=== PATIENT | male | born 1945 | race Caucasian/White ===

== ENCOUNTER 2024-11-21 11:39 | Inpatient (IN) | payer MEDICARE, OTHER, SELFPAY ==
[2024-11-21] VITALS (7 sets, daily range): BP systolic 105–137; BP diastolic 64–81; PULSE 86–110; RESP 17–20; TEMP 36.4–38.2; O2SAT 95–99; BMI 21.9; BMI 20.6
--- NOTE | ~2024-11-21 | US_ITS ---
EXAMINATION: US KIDNEY RIGHT HISTORY: ZUNILDA TECHNIQUE: Real-time grayscale ultrasound imaging of the kidneys was performed and images were reviewed. COMPARISON: There are no prior studies available for comparison. FINDINGS: Right kidney: The right kidney measures 9.2 x 4.8 x 5.4 cm. The kidney is suboptimally visualized due to lack of patient cooperation. There are no definite masses. There is no hydronephrosis or renal calculi. Left Kidney: The left kidney could not be imaged due to lack of patient cooperation. US/US renal RT IMPRESSION: Markedly limited examination due to lack of patient cooperation. The right kidney is only partially imaged and the left kidney is not imaged. Electronically signed by: Blayne Avila MD 11/23/2024 01:12 PM EDT
--- NOTE | ~2024-11-21 | XR_ITS ---
EXAMINATION: XR HUMERUS, LEFT CLINICAL INFORMATION: fall COMPARISON: None available. TECHNIQUE: AP and lateral views of the left humerus. FINDINGS: Broad-based bladelike a.c. is present in the middle third diaphysis of the tibia which demonstrates varus bowing deformity. On the lateral view, there is cortical thickening at the junction of the proximal third and middle third diaphysis involving the anterior cortex and cortical thickening involving the posterior middle third cortex. There is also mild expansion of the central diaphysis and coarsened trabecular pattern. No acute fracture line is identified. Lateral view, multifocal punctate calcifications are evident posterior to the greater tuberosity. XR/XR humerus LT IMPRESSION: No acute fracture. There is bowing deformity, mild expansion, coarsened trabecular pattern, and blade-like lytic lesion involving the middle third diaphysis of the humerus. There is also mild cortical thickening. The appearance is most consistent with Paget's disease. Recommend follow-up x-ray in 4-6 months to evaluate for progression. Possible calcific tendinitis involving posterior rotator cuff near the greater tuberosity. Electronically signed by: Miguel Ness MD 11/21/2024 12:58 PM EDT
--- NOTE | ~2024-11-21 | XR_ITS ---
EXAMINATION: XR SHOULDER, LEFT CLINICAL INFORMATION: fall COMPARISON: None available. TECHNIQUE: Two views of the left shoulder. FINDINGS: 2 limited views submitted. No definitive acute fracture, dislocation, or suspicious bone lesion. Normal alignment. The glenohumeral joint is intact with mild degenerative changes. The AC joint demonstrates moderate superior and undersurface spurring. There is a type II acromion. No significant undersurface spurring. The subacromial space is grossly preserved. There is mild medial angulation of the mid diaphysis of the humerus, likely reflective of old healed fracture. Remainder of the soft tissue and bony structures appear normal. XR/XR shoulder LT min 2V IMPRESSION: 1. No acute bony abnormalities of the left shoulder on these 2 limited views. Electronically signed by: Selvin Lamb MD 11/21/2024 12:49 PM EDT
--- NOTE | ~2024-11-21 | CT_ITS ---
CLINICAL HISTORY: f u subdural hemorrhage CT head without contrast Comparison: CT/SR - CT HEAD WITHOUT IV CONTRAST - 11/21/24 12:05 EDT Findings: Study is limited by motion artifact despite repeat scanning. There is a stable subdural hematoma along the right cerebral convexity. The hematoma is isodense suggesting it may be acute on chronic versus subacute. There is no midline shift. Ventricles are within normal limits in size. The bergman-white matter differentiation appears normal on the non motion degraded portions of the exam. There is mild generalized cerebral atrophy. The visualized portions of the orbits, paranasal sinuses, and mastoids are unremarkable. No fractures are identified. IMPRESSION: Stable right subdural hematoma. This document has been electronically signed by: Paul Paz MD on 11/22/2024 01:55:25
--- NOTE | ~2024-11-21 | CT_ITS ---
EXAMINATION: CT HEAD WITHOUT IV CONTRAST HISTORY: fall. TECHNIQUE: Unenhanced helical CT of the head was performed per standard departmental protocol. Coronal and sagittal reformats of the head were also evaluated. One or more of the following techniques was used for dose reduction: Automated exposure control, adjustment of the mA and/or kV according to patient size, use of iterative reconstruction technique. DLP: 725 mGy-cm COMPARISON: There are no prior studies available for comparison. FINDINGS: BRAIN: There is diffuse prominence of the ventricular system and cortical sulci, consistent with atrophy. Periventricular and subcortical white matter hypodensities are noted which are nonspecific, but often seen in the setting of small vessel ischemic disease. There is a right sided subdural fluid collection which is predominantly isodense. However, there are a few scattered internal hyperdense foci. Findings are consistent with an acute on chronic subdural hemorrhage. This measures up to 7 mm in thickness. There is mild mass effect without midline shift. SINUSES: The visualized paranasal sinuses are clear. The mastoid air cells and middle ear cavities are well pneumatized. ORBITS: The visualized orbits are unremarkable. BONES/SOFT TISSUES: The extracranial soft tissues are unremarkable. The calvarium is intact. No suspicious lytic or sclerotic lesions. CT/CT head/brain wo IV con IMPRESSION: Findings consistent with an acute on chronic right-sided subdural hematoma as described. These findings were discussed with Dr. Fernández in the emergency room on 11/21/2024 at 12:41 PM. Electronically signed by: Blayne Avila MD 11/21/2024 12:43 PM EDT
--- NOTE | ~2024-11-21 | CT_ITS ---
EXAMINATION: CT HEAD WITHOUT CONTRAST CLINICAL INFORMATION: follow up sdh COMPARISON: November 22, 2024 reported a right-sided subdural hematoma. TECHNIQUE: Contiguous axial imaging was performed from the skull base to vertex without intravenous administration of contrast. This CT examination was performed using dose optimization techniques as appropriate, variously including the following: *Automated exposure control *Adjustment of mA and/or kV according to patient size (this includes techniques or standardized protocols for targeted exams where dose is matched to indication/reason for exam; i.e. extremities or head) *Use of iterative reconstruction technique DLP: 823 mGy-cm FINDINGS: There is a 5 mm in maximal thickness extra-axial crescent-shaped mixed hypo and hyperdense attenuation abnormality along the right frontotemporal parietal convexity. No gross midline shift, hydrocephalus or herniation. No intraparenchymal hemorrhage. Bilateral multifocal patchy and confluent deep periventricular white matter hypodensity involving centrum semiovale and licona radiata. Calcified plaques in the cavernous supraclinoid segments both ICAs and V4 segment left vertebral artery. Sellar/suprasellar region demonstrated no gross masses. Craniocervical junction demonstrates normal position of the cerebellar tonsils. No acute fracture in the bony calvarium or the skull base. Old traumatic deformities, nasal bones posttreatment changes in the left middle cranial fossa and to a lesser extent right middle cranial fossa with metallic microcoils and the extra-axial compartment. CT/CT head/brain wo IV con IMPRESSION: 5 mm maximal thickness acute to subacute right subdural hematoma/hemorrhage. Overall stable. Small vessel occlusive disease. Atherosclerosis disease, intracranial. Electronically signed by: Raghav Porras MD 11/29/2024 10:37 AM EDT
--- NOTE | ~2024-11-21 | CT_ITS ---
EXAMINATION: CT CERVICAL SPINE WITHOUT CONTRAST CLINICAL INFORMATION: Fall, neck pain. COMPARISON: None available. TECHNIQUE: Spiral CT imaging of the cervical spine performed in axial plane without contrast. Multiplanar reformatted images were constructed from the axial data set. This CT examination was performed using dose optimization techniques as appropriate, variously including the following: *Automated exposure control *Adjustment of mA and/or kV according to patient size (this includes techniques or standardized protocols for targeted exams where dose is matched to indication/reason for exam; i.e. extremities or head) *Use of iterative reconstruction technique FINDINGS: CORONAL ALIGNMENT: -Normal. SAGITTAL ALIGNMENT: -Normal lordosis. No subluxations. C1-C2 AND CRANIOCERVICAL JUNCTION: -Intact and normally aligned. VERTEBRAL BODIES AND FACETS: -No fracture, compression deformity, or evidence of traumatic subluxation. -There is no bone lesion. -Normal facet alignment bilaterally with mild multilevel generative facet changes. DISCS: -Mild to moderate multilevel degenerative disc changes throughout. This is most pronounced at C5-6. CENTRAL CANAL: -No evidence of high-grade central canal narrowing or large disc herniation allowing for modality limitations. PREVERTEBRAL AND PARAVERTEBRAL SOFT TISSUES: -No prevertebral or paravertebral soft tissue swelling or abnormal fluid collection. -Mild to moderate bilateral carotid bulb calcifications present. -Thyroid is small without focal lesion. -No mass or abnormal lymph nodes. LUNG APICES: -No pneumothorax. Lung apices clear. CT/CT cervical spine wo IV con IMPRESSION: 1. No CT evidence of acute cervical spine fracture or injury. Electronically signed by: Selvin Lamb MD 11/21/2024 12:39 PM EDT
--- NOTE | ~2024-11-21 | CT_ITS ---
EXAMINATION: CT ABDOMEN PELVIS WITH IV CONTRAST HISTORY: question of bladder CA COMPARISON: There are no prior studies for available comparison. TECHNIQUE: CT scan of the abdomen and pelvis was performed following administration of 85 mL Omnipaque 350 using standard departmental protocol. Coronal and sagittal reformatted images were generated and reviewed. Oral contrast material was not administered at the request of the referring physician. This CT exam was performed with one or more of the following dose reduction techniques: automated exposure control, adjustment of the mA and/or kV according to patient size, use of iterative reconstruction technique. DLP: 390 mGy-cm FINDINGS: LOWER CHEST: There is scarring at the right lung base. There is no pleural or pericardial effusion. CARDIOVASCULATURE: The heart is normal in size. There is no pericardial effusion. LIVER: The liver is normal in size and contour. No liver mass is identified. The hepatic and portal veins are patent. GALLBLADDER / BILE DUCTS: The gallbladder is unremarkable. There is no intra or extrahepatic biliary ductal dilatation. SPLEEN: The spleen is normal in size. No focal splenic lesion is identified. PANCREAS: The pancreas is unremarkable in appearance. ADRENAL GLANDS: Within normal limits. KIDNEYS/RETROPERITONEUM: No renal calculi are identified. There is no hydronephrosis. No renal masses are identified. LYMPH NODES: No abdominal or pelvic lymphadenopathy. VASCULATURE: The abdominal aorta demonstrates atherosclerotic calcification, but is normal in caliber. There is an intimal flap in the right external iliac artery indicative of a dissection. This does not limit flow. MESENTERY/PERITONEUM: No free fluid. No masses. There is no free intraperitoneal gas. STOMACH: The stomach is collapsed, limiting evaluation. SMALL BOWEL: The small bowel is normal in caliber. COLON: The colon is unremarkable. APPENDIX: The appendix is not seen, however no inflammatory changes are seen adjacent to the cecum. URINARY BLADDER/PELVIC ORGANS: There is a 1.5 cm bladder calculus to the right of midline. The urinary bladder is completely collapsed with a Cruz catheter limiting evaluation. The prostate is enlarged. BONES / SOFT TISSUES: There is degenerative disc disease of the spine. There is a moderate compression deformity of L3. CT/CT abdomen pelvis w IV con IMPRESSION: 1. 1.5 cm bladder calculus. Evaluation of the urinary bladder is otherwise nondiagnostic as it is decompressed with a Cruz catheter. 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 3. Findings were sent to Dr. Poole by secure text message on 11/25/2024 at 3:32 PM and immediately acknowledged. Electronically signed by: Blayne Avila MD 11/25/2024 03:35 PM EDT
--- NOTE | 2024-11-21 11:55 | ED.FALL ---
HPI - Fall General Chief Complaint: Fall Stated Complaint: UNWIT FALL @SNF,+CCOLLAR,STAFF STS AGITATED Time Seen by Provider: 11/21/24 11:45 Source: family (Spouse), EMS, RN notes reviewed and old records reviewed Mode of arrival: EMS Limitations: other (Dementia and poor historian at baseline.) History of Present Illness ED Provider: DR. Fernández HPI Narrative: 79-year-old male came [facility] for evaluation after was found on the ground seem like patient sustained unwitnessed fall at the penitentiary, no history of blood thinner, patient in the emergency department acting at his baseline of confusion as per stated, recently was treated for UTI. Patient is non historian history was obtained from , old records. Patient is a DNR/DNI. Related Data Previous Rx's ?Medication ?Instructions ?Recorded cefuroxime axetil 500 mg tablet 500 mg PO BID 7 days #14 tabs 11/21/24 Allergies Allergy/AdvReac Type Severity Reaction Status Date / Time No Known Allergies Allergy Verified 11/21/24 11:51 Review of Systems Review of Systems: Yes Unobtainable due to mental condition (Dementia and baseline confusion.) [facility] Social History Social History Smoked in Last 30 Days: No Advance Directives: Yes Advance Directives Information Provided: No Advance Directives on File: No Do you have a plan to hurt others: No Plan Physical Exam Vital Signs: Vital Signs: Last Vital Signs Temp 97.5 F 11/21/24 15:31 Pulse 100 11/21/24 15:31 Resp 17 11/21/24 15:31 BP 108/66 11/21/24 15:31 Pulse Ox 96 11/21/24 15:31 O2 Del Method Room Air 11/21/24 15:31 BMI result Body Mass Index 21.9 Vital signs have been reviewed and appear to be correct. Blood pressure elevated. Heart rate normal. Respiratory rate normal. Temperature normal. Oxygen saturation normal. Appearance: Alert, demented, confused. No acute distress. Head: Normal external exam. Normocephalic. Atraumatic. No Foreman signs noted. No raccoon eyes noted Eyes: PERRLA. EOMI. Conjunctiva and sclera normal. Eyelids normal. ENT: TM's Normal. Pharynx normal. Uvula midline. Moist mucous membranes. No trismus noted. No drooling noted. No muffled voice noted. Neck: Normal inspection. Neck supple. FROM. No adenopathy. Thyroid Normal. No meningeal signs. No neck mass noted. CVS: Normal heart rate and rhythm. Heart sound normal. No murmurs noted. Pulses normal throughout. Respiratory: No respiratory distress. Painless inspiration. Breath sounds normal. No wheezes/rales/rhonchi noted. Chest nontender. No accessory muscle usage noted or decreased air movement noted. Abdomen: Soft and nontender. Bowel sounds normal in all 4 quadrants. No distention noted. No organomegaly noted. No visible injury noted. Back: No CVA tenderness. Full range of motion noted. Skin: Skin warm and dry. Normal skin color. Normal skin turgor. No rashes/lesions/lacerations noted. Extremities: Left shoulder/left arm tenderness, no deformity. Neurovascularly intact. Mild tenderness over left humerus/left shoulder. Neuro: Demented, confused. Cranial nerve exam: II-XII are grossly intact No motor deficit. No sensory deficit. Reflexes normal. 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 no midline shift, the finding were discussed with his at the bedside Yesica Quintero who also HCP for the patient who stated that the patient was at [facility] recently for subdural hematoma and patient did not like the experience of, who is AAO x3 wanted to send the patient back to his penitentiary, I discussed with her complication of subdural hematoma that might lead to further bleeding and the brain shift causing neurological deficit and also increased risk for fully understand my instruction and still noted to continue with the plan of sending her back to the penitentiary and not to transfer and to trauma center. patient is in the process of searching of locked dementia unit bed. UTI will start on Ceftin b.i.d. for 1 week. Time: 15:05 Reevaluation #2: /son at the bedside declined sending the patient to [facility] for further trauma evaluation, patient is agitated and incoherent I believe that the patient at this point will need inpatient dementia bed, will keep the patient on physician observation and social sciences chair consultation. Time: 15:59 Medications Administered Generic Name Dose Route Start Last Admin Trade Name Freq PRN Reason Stop Dose Admin Cefuroxime Axetil 500 mg 11/21/24 16:15 11/21/24 16:24 Cefuroxime Axetil 500 Mg Tablet PO Not Given BID ENDY Discontinued Medications Generic Name Dose Route Start Last Admin Trade Name Freq PRN Reason Stop Dose Admin Cefuroxime Axetil 500 mg 11/21/24 15:03 11/21/24 15:46 Cefuroxime Axetil 500 Mg Tablet PO 11/21/24 15:04 Not Given ONCE ONE Olanzapine 10 mg 11/21/24 13:59 11/21/24 14:03 Olanzapine 10 Mg Vial IM 11/21/24 14:00 10 mg STAT STA Administration Medical Decision Making Medical Decision Making MDM Narrative: I received sign-out from my colleague Dr. Fernández I was informed by the patient's nurse that the patient keeps getting more combative. Patient received IM Zyprexa earlier today. I had a very prolonged and thorough discussion with the patient's family and our case management regarding the patient's medical condition. Patient does have history of dementia, has a UTI, and has an acute on chronic subdural hematoma. The patient's who is the healthcare proxy, states that she understands that the patient has a brain bleed, which would be otherwise the priority of treatment. However, she does not want her to have any neurological intervention at all and does not want him to go to [facility]. She she understands and requests that if the patient decompensates, to keep him as DNR DNI and then if this does happened, she will switch him to [facility] [employer]. In the meantime, patient will be given IM diazepam and Benadryl. Also, patient is not taking any p.o. now due to being combative, he will be getting IM medications including his antibiotic. At this time, putting an IV is not the best idea, he would pull it right back out. I discussed the above-mentioned with our hospitalist nurse practitioner Fermín, the medicine team will admit the patient, and case management will continue to work with the family. Overall, the patient is agitated and aggressive behavior started before the fall today. Patient's current penitentiary does not want him back due to his level of aggression which gradually got worse over last few weeks. Today is the worst day for him, likely the brain bleed is contributing to this. Patient's family agreeable to get him admitted to the hospital Differential Diagnosis Differential Diagnoses: The differential diagnosis associated with the presentation includes (Subdural hematoma, intraparenchymal bleed, electrolyte derangement, severe anemia.) Admission/Observation Consideration of admission/observation: Escalation of care including admission/observation considered Consult Healthcare Provider Management of the patient was discussed with: Hospitalist Lab Data MDM Lab Attestation statement: I reviewed the patient's lab results. 11/21/24 12:07 11/21/24 12:07 Labs: Lab Results 11/21/24 11/21/24 Range/Units 12:07 14:42 WBC 11.2 H (4.8-10.8) X10*3/uL RBC 4.02 L (4.60-5.80) X10*6/uL Hgb 12.8 L (14.0-18.0) g/dl Hct 39.2 L (42.0-52.0) % MCV 97.5 (80.0-98.0) fL MCH 31.8 (27.0-33.0) pg MCHC 32.7 (31.0-36.0) g/dl RDW 13.6 (11.0-16.0) % Plt Count 202 (160-400) X10*3/uL MPV 9.8 (9.4-12.4) fL Immature Gran % (Auto) 0.4 (0.0-0.4) % Neut % (Auto) 88.1 H (45-73) % Lymph % (Auto) 5.6 L (20-40) % [place] % (Auto) 5.4 (2-11) % Eos % (Auto) 0.2 (0-4) % Baso % (Auto) 0.3 (0-2) % Lymph # (Auto) 0.6 L (1.2-4.9) X10*3/uL [place] # (Auto) 0.6 (0.1-1.2) X10*3/uL Eos # (Auto) 0.0 (0.0-0.4) X10*3/uL Baso # (Auto) 0.0 (0.0-0.2) X10*3/uL Abs Immat Gran (auto) 0.04 H (0.00-0.03) X10*3/uL Absolute Neuts (auto) 9.9 H (2.0-8.3) x10*3/uL Absolute Nucleated RBC 0.000 (0.0-0.012) X10*3/uL Nucleated RBC % (auto) 0.0 (0.0-0.2) /100WBC PT 12.8 H (10.9-12.4) SEC INR 1.1 (0.9-1.1) Sodium 140 (135-145) mmol/L Potassium 4.5 (3.3-5.1) mmol/L Chloride 108 (96-108) mmol/L Carbon Dioxide 25 (22-29) mmol/L Anion Gap 12 (12-20) BUN 20 H (9-16) mg/dL Creatinine 1.15 (0.5-1.4) mg/dL Estim Creat Clear Calc 52.6 Estimated GFR > 60 Random Glucose 107 (60-115) mg/dL Calcium 8.9 (8.4-10.2) mg/dL Urine Color Yellow Urine Appearance Cloudy Urine pH 6.0 (5.0-9.0) Ur Specific Wagoner 1.010 (1.005-1.025) Urine Protein 100 (2+) H (Neg-Trace) mg/dL Urine Glucose (UA) Negative (Negative) mg/dL Urine Ketones Negative (Negative) mg/dL Urine Blood Large (3+) H (Negative) Urine Nitrite Negative (Negative) Ur Leukocyte Esterase Moderate (2+) H (Negative) Urine RBC >20 H (0-2) /HPF Urine WBC 11-20 H (0-5) /HPF Ur Squamous Epith Cells 0-2 (0-2) /HPF Urine Bacteria None Seen (None Seen) Hyaline Casts 0-2 (0-2) /LPF Independent Interpretation I performed an independent interpretation of an: CT Scan (Head/C-spine:Findings consistent with an acute on chronic right-sided subdural hematoma as described. These findings were discussed with Dr. Fernández in the emergency room on 11/21/2024 at 12:41 PM. ) Radiology Impression Discussion of test interpretation with radiology: I have reviewed the radiologist's reading. Critical Care Time Critical Care Time Critical Care Time: Yes Total Critical Care Time: 60 Attestation: I have personally provided critical care time. Time includes review of lab data, radiology results, discussion with consultants, and monitoring for potential decompensation. Intervention performed as documented. Discharge Plan Discharge Clinical Impression: Fall, Acute on chronic intracranial subdural hematoma, Acute UTI Patient Disposition: Admitted As Inpatient Print Language: Vietnamese
[2024-11-21 12:10] LABS: MANUAL DIFF FLAG NO
[2024-11-21 12:12] LABS: Hematocrit 39.2 % (42.0-52.0); Hemoglobin 12.8 g/dl (14.0-18.0); Imm Gran Abs Auto 0.04 X10*3/uL (0.00-0.03); Imm Gran Pct Auto 0.4 % (0.0-0.4); Lymphocytes Absolute Auto 0.6 X10*3/uL (1.2-4.9); Mean Corpuscular HGB Conc 32.7 g/dl (31.0-36.0); Mean Corpuscular Hemoglobin 31.8 pg (27.0-33.0); Mean Corpuscular Volume 97.5 fL (80.0-98.0); NRBC Abs Auto 0.000 X10*3/uL (0.0-0.012); NRBC Pct Auto 0.0 /100WBC (0.0-0.2); Platelet Count 202 X10*3/uL (160-400); Red Blood Count 4.02 X10*6/uL (4.60-5.80); White Blood Count 11.2 X10*3/uL (4.8-10.8)
[2024-11-21 12:19] LABS: INTERNATIONAL NORM RATIO 1.1 (0.9-1.1); Prothrombin Time 12.8 SEC (10.9-12.4)
[2024-11-21 12:24] LABS: Anion Gap 12 (12-20); Blood Urea Nitrogen 20 mg/dL (9-16); Calcium 8.9 mg/dL (8.4-10.2); Carbon Dioxide 25 mmol/L (22-29); Chloride 108 mmol/L (96-108); Creatinine Clr Calc Pharmacy 52.6; Estimated Glomerular Filt Rate > 60; Potassium 4.5 mmol/L (3.3-5.1); Sodium 140 mmol/L (135-145)
--- OUTSIDE RECORDS SUMMARY | 2024-11-21 13:36 | XMS_ITS | Clinical Summary ---
Author Organization [facility] [place] [address] Care Team Providers Care Regulator Tester Name Role Phone Miquel Lo DO Primary Care Provider [phone] Allergies No known active allergies Medications Eliquis 5 mg Tablet TAKE 2 TABLETS BY MOUTH TWICE DAILY FOR 7 DAYS, THEN TAKE 1 TABLET TWICE DAILY 70 tablet 11/23/2019 Active Social History Tobacco Use Types Packs/Day Years Used Date Smoking Tobacco: Never Assessed Sex and Gender Information Value Date Recorded Sex Assigned at Not on file Legal Sex Male 9:19 PM EDT Gender Identity Not on file Sexual Orientation Not on file Last Filed Vital Signs Vital Sign Reading Time Taken Comments Blood Pressure 131/72 09/27/2019 2:00 AM EDT Pulse 70 09/27/2019 2:00 AM EDT Temperature 36.4 C (97.5 F) 09/26/2019 9:26 PM EDT Respiratory Rate 18 09/27/2019 2:00 AM EDT Oxygen Saturation 95% 09/27/2019 2:00 AM EDT Inhaled Oxygen Concentration - - Weight 95.3 kg (210 lb) 09/26/2019 9:26 PM EDT Height - - Body Mass Index - - Plan of Treatment Health Maintenance Due Date Last Done Comments Hepatitis C Screening 09/18/1965 Tetanus/Diphtheria/Pertussis Vaccines (1 - Tdap) 09/18/1966 Pneumoccocal Vaccine: 50+ (1 of 1 - PCV) 09/18/1997 Zoster vaccine (1 of 2) 09/18/1997 Advance Directive 09/18/2002 RSV Vaccine (1 - 1-dose 75+ series) 09/18/2022 Covid-19 Vaccine (3 - 2024-25 season) 11/29/202312/2020, 06/16/2020 Influenza (Flu) vaccine (1 o f 1 - Influenza standard series) 11/28/2024 Insurance MEDICARE Care Teams Regulator Tester Relationship Specialty Start Date End Date Miquel Lo DO [address] [place] [address] [address] [place] [phone] PCP - General Family Medicine 09/26/19
--- OUTSIDE RECORDS SUMMARY | 2024-11-21 13:36 | XMS_ITS | Patient Health Record ---
Author Organization [facility] Address [address] [place] [address] Care Team Providers Care Supervisor Production Name Role Phone Miquel Lo M.D Primary Care Provider Christy Jameson Unavailable [phone] Allergies No Known Allergies Reason For Referral No Information Medications Medication SIG (Take, Route, Frequency, Duration) Notes Start Date End Date Status Atorvastatin Calcium 80 MG 1 tablet Oral ly Once a day Active Acid Cell Efficiency Supervisor Active Propranolol HCl 20 MG/5ML 5 mL Orally Twice a day Active buPROPion HCl ER (SR) 150 MG 1 tablet in the morning Orally Once a day Active Social History Tobacco Use: Social History Observation Description Date Details (start date - stop date) Current Smoker NA - NA Tobacco use other than smoking: Question Answer Notes Are you an other tobacco user? No Tobacco Control (Standard) Question Answer Notes Tobacco use: Current smoker How often do you smoke cigarettes? Every day How many cigarettes a day do you smoke? 6-10 How soon after you wake up d o you smoke your first cigarette? 31-60 minutes Are you interested in quitting? Not ready to sam t Additional Findings: Tobacco user Modera te cigarette smoker (10-19 cigs/day) AUDIT-C (Standard) Question Answer Notes Did you have a drink containing alcohol in the p ast year? No Points 0 Interpretation Negative Problems Problem Type SNOMED Code ICD Code Onset Dates Problem Status W/U Status Risk Notes Problem Atherosclerosis of [place] artery of both lower extremities, with unspecified presence of clinical manifestation (I70.203) Active confirmed Q7(A), Q8(2B), Q9(1B,2C) Vital Signs Heart Rate 96 /min 07/05/2024 Blood pressure diastolic 62 mm Hg 07/05/2024 Height 5ft 11in in 07/05/2024 Blood pressure systolic 93 mm Hg 07/05/2024 Weight 193 lbs 07/05/2024 BMI 26.92 kg/m2 07/05/2024 Encounters Encounter Location Date Provider Diagnosis [address] [address] 01/05/2024 Christy Perica Atherosclerosis of [place] artery of both lower extremities, with unspecified presence of clinical manifestation I70.203 ; Tinea unguium B35.1 ; Pain in right toe(s) M79.674 and Pain in left toe(s) M79.[address] [address] 07/05/2024 Christy Perica Atherosclerosis of [place] artery of both lower extremities, with unspecified presence of clinical manifestation I70.203 ; Tinea unguium B35.1 ; Pain in right toe(s) M79.674 and Pain in left toe(s) M79.675 Assessments Encounter Date Diagnosis (ICD Code) Assessment Notes Treatment Notes Treatment Clinical Notes Section Notes 01/05/2024 Tinea unguium (ICD-10 - B35.1) 01/05/2024 Atherosclerosis of [place] artery of both lower extremities, with unspecified presence of clinical manifestation (ICD-10 - I70.203) Q7(A), Q8(2B), Q9(1B,2C) 07/05/2024 Atherosclerosis of [place] artery of both lower extremities, with unspecified presence of clinical manifestation (ICD-10 - I70.203) Q7(A), Q8(2B), Q9(1B,2C) 01/05/2024 Pain in right toe(s) (ICD-10 - M79.674) 07/05/2024 Tinea unguium (ICD-10 - B35.1) 01/05/2024 Pain in left toe(s) (ICD-10 - M79.675) 07/05/2024 Pain in right toe(s) (ICD-10 - M79.674) 07/05/2024 Pain in left toe(s) (ICD-10 - M79.675) Plan Of Treatment No Information Insurance Providers Payer Name Payer Address Payer Phone Subscriber Number Group Number Insured Name Patient Relationship to Insured Coverage Start Date Coverage End Date Medicare National [employer] [address] [place] [address] [id number] Eren Quintero Self - patient is the insured [facility] [address] [place] [address] [id number] Yesica Quintero Spouse - patient is the spouse of the insured Medical (General) History Medical History History ICD Code Back,Hip,and Knee pain Broken bones Cataracts Dementia Depression Poor circulation Reflux GERD Stroke blood clots Surgical History Surgery Date(Month/Year) kidney surgery x4 Broken/Fracture Leg eye surgery colonoscopy Tooth extraction tonsillectomy
--- OUTSIDE RECORDS SUMMARY | 2024-11-21 13:36 | XMS_ITS | Encounter Summary ---
Author Organization [facility] Address [address] [place] [address] Care Team Providers Care Head Chef Name Role Phone Cee Gorman MD Primary Care Provider + Encounter Details Date Type Department Care Team (Late st Contact Info) Description 11/19/2024 Lab Requisition [facility] - Main Lab [address] [place] [address] Cee Gorman MD [address] [address] Essential (primary) hypertension; Anemia, unspecified; Chronic kidney disease, unspecified; Other disorders of electrolyte and fluid balance, not elsewhere classified Social History Tobacco Use Types Packs/Day Years Used Date Smoking Tobacco: Never Assessed Sex and Gender Information Value Date Recorded Sex Assigned at Not on file Legal Sex Male 8:57 AM EDT Gender Identity Not on file Sexual Orientation Not on file documented as of this encounter Plan of Treatment Not on file documented as of this encounter Procedures Procedure Name Priority Date/Time Associated Diagnosis Comments COMPLETE BLOOD COUNT Routine 11/21/2024 8:15 AM EDT Essential (primary) hypertension Anemia, unspecified Chronic kidney disease, unspecified Other disorders of electrolyte and fluid balance, not elsewhere classified COMPREHENSIVE METABOLIC PANEL Routine 11/21/2024 8:15 AM EDT Essential (primary) hypertension Anemia, unspecified Chronic kidney disease, unspecified Other disorders of electrolyte and fluid balance, not elsewhere classified documented in this encounter Results * (ABNORMAL) Comprehensive metabolic panel (11/21/2024 8:15 AM EDT) Sodium 140 133 - 145 mmol/L LAB CHEMISTRY METHOD 11/21/2024 12:10 PM EDT [facility] Potassium 4.2 3.5 - 5.5 mmol/L LAB CHEMISTRY METHOD 11/21/2024 12:10 PM [facility] Chloride 108 96 - 110 mmol/L LAB CHEMISTRY METHOD 11/21/2024 12:10 PM [facility] CO2 26 21 - 32 mmol/L LAB CHEMISTRY METHOD 11/21/2024 12:10 PM [facility] Anion Gap 6 3 - 11 LAB CHEMISTRY METHOD 11/21/2024 12:10 PM [facility] Glucose 85 70 - 100 mg/dL LAB CHEMISTRY METHOD 11/21/2024 12:10 PM [facility] BUN 16 5 - 25 mg/dL LAB CHEMISTRY METHOD 11/21/2024 12:10 PM [facility] Creatinine 0.88 0.70 - 1.30 mg/dL LAB CHEMISTRY METHOD 11/21/2024 12:10 PM [facility] eGFR 89 >=60 mL/min/1. 73m2 LAB CHEMISTRY METHOD 11/21/2024 12:10 PM [facility] Comment:Calculation based on the Chronic Kidney Disease Epidemiology Collaboration (CKD-EPI) equation refit without adjustment for race. BUN/Creatinine Ratio 18.2 LAB CHEMISTRY METHOD 11/21/2024 12:10 PM [facility] Calcium 8.6 8.5 - 10.5 mg/dL LAB CHEMISTRY METHOD 11/21/2024 12:10 PM [facility] AST (SGOT) 34 10 - 42 unit/L LAB CHEMISTRY METHOD 11/21/2024 12:10 PM [facility] ALT (SGPT) 18 10 - 60 unit/L LAB CHEMISTRY METHOD 11/21/2024 12:10 PM [facility] Alkaline Phosphatase 104 42 - 121 unit/L LAB CHEMISTRY METHOD 11/21/2024 12:10 PM [facility] Total Protein 6.7 6.0 - 8.0 g/dL LAB CHEMISTRY METHOD 11/21/2024 12:10 PM EDT [facility] Albumin 3.0(L) 3.2 - 5.0 g/dL LAB CHEMISTRY METHOD 11/21/2024 12:10 PM EDT [facility] Total Bilirubin 0.9 0.0 - 1.4 mg/dL LAB CHEMISTRY METHOD 11/21/2024 12:10 PM EDT [facility] Blood Venous blood specimen / Unknown Venipuncture / Unknown 11/21/2024 8:15 AM EDT 11/21/2024 10:28 AM EDT us Cee Gorman MD LAB BLOOD ORDERABLES Fin al Result [facility] [address] [place] [address], * (ABNORMAL) Complete blood count (11/21/2024 8:15 AM EDT) WBC 10.8 4.8 - 10.8 K/[facility] LAB HEMETOLOGY METHOD 11/21/2024 11:16 AM [facility] RBC 3.90(L) 4.50 - 5.50 M/mcL LAB HEMETOLOGY METHOD 11/21/2024 11:16 AM [facility] Hemoglobin 12.1(L) 13.5 - 17.5 g/dL LAB HEMETOLOGY METHOD 11/21/2024 11:16 AM T [facility] Hematocrit 38.1(L) 42.0 - 54.0 % LAB HEMETOLOGY METHOD 11/21/2024 11:16 AM T [facility] MCV 98.2(H) 79.0 - 98.0 FL LAB HEMETOLOGY METHOD 11/21/2024 11:16 AM T [facility] MCH 31.2 27.0 - 32.0 pcg LAB HEMETOLOGY METHOD 11/21/2024 11:16 AM EDT [facility] MCHC 31.8(L) 32.0 - 37.0 g/dL LAB HEMETOLOGY METHOD 11/21/2024 11:16 AM EDT [facility] RDW 13.5 11.0 - 15.0 % LAB HEMETOLOGY METHOD 11/21/2024 11:16 AM EDT [facility] Platelets 211 130 - 400 K/mcL LAB HEMETOLOGY METHOD 11/21/2024 11:16 AM EDT [facility] MPV 10.3 7.0 - 11.0 FL LAB HEMETOLOGY METHOD 11/21/2024 11:16 AM EDT [facility] NRBC 0.0 <1.0 % LAB HEMETOLOGY METHOD 11/21/2024 11:16 AM EDT [facility] NRBC Absolute 0.00 <0.10 K/mcL LAB HEMETOLOGY METHOD 11/21/2024 11:16 AM EDT [facility] Blood Venous blood specimen / Unknown Venipuncture / Unknown 11/21/2024 8:15 AM EDT 11/21/2024 10:28 AM EDT us Cee Gorman MD LAB BLOOD ORDERABLES Fin al Result [facility] [address] [place] [address], documented in this encounter Visit Diagnoses Diagnosis Essential (primary) hypertension Unspecified essential hypertension Anemia, unspecified Chronic kidney disease, unspecified Other disorders of electrolyte and fluid balance, not elsewhere classified documented in this encounter Care Teams Head Chef Relationship Specialty Start Date End Date Cee Gorman MD [address] [place] [id number] PCP - General Family Medicine 10/21/24 documented as of this encounter
--- OUTSIDE RECORDS SUMMARY | 2024-11-21 13:36 | XMS_ITS | Encounter Summary ---
Author Organization [facility] Address [address] [place] [address] [place] [phone] Phone Care Team Providers Care Ladies' Hat Trimmer Name Role Phone Miquel Lo DO Unavailable Miquel Lo DO Primary Care Provider [phone] Rikki Shen OT Unavailable Chaparrita Harper RN Unavailable [phone] Christopher Dunham MD Unavailable Christy Novak MEDICAL DEVICE Unavailable Chaparrita Nicolas MD Unavailable Jerrod Sanchez DO Unavailable [phone] Encounter Details Date Type Department Care Team (Late st Contact Info) Description 09/08/2017 Ancillary Orders Virtual Department [address] [place] [phone] Anatoly Beltran MD [address] [place] [address], [address] [phone] [email or web address] Calculus of ureter Social History Tobacco Use Types Packs/Day Years Used Date Smoking Tobacco: Every Day Smokeless Tobacco: Never Sex and Gender Information Value Date Recorded Sex Assigned at Male 07/19/2022 12:56 PM EDT Legal Sex Male 8:32 PM EDT Gender Identity Male 07/19/2022 12:56 PM EDT Sexual Orientation Straight 10/03/2024 1: 16 PM EDT documented as of this encounter Plan of Treatment Upcoming Encounters Date Type Department Care Team (Late st Contact Info) Description 01/10/2025 2:30 PM EDT Office Visit [facility] Medicine [address] [place] [address] TeresitaMiquel, DO [address] [facility], [address] [place] [address] [email or web address] 05/18/2025 10:30 AM EST Office Visit [facility] Geriatrics [address] [place] [address] Logan Scott, DO [address] [place] [address] [email or web address] documented as of this encounter Results * US Kidneys (10/01/2017 8:02 AM EDT) Anatomical Region Laterality Modality Abdomen, Kidney Ultrasound 10/01/2017 8:21 AM EDT Impressions 10/01/2017 8:57 AM EDT No hydronephrosis or shadowing renal calculi. POS - [id number] Narrative 10/01/2017 8:57 AM EDT US KIDNEYS HISTORY: Calculus of ureter COMPARISON: 09/01/2016 ultrasound. 08/10/2016 CT. TECHNIQUE: Grayscale and color Doppler ultrasound imaging of the kidneys. FINDINGS: Right kidney: Normal right renal size. Measures 10.5 x 5.1 cm. Normal cortical echogenicity and cortical thickness. There is no hydronephrosis or shadowing calculus. Left kidney: Normal left renal size. Measures 11.5 x 4.5 cm. Normal cortical echogenicity and cortical thickness. There is no hydronephrosis or shadowing calculus. Procedure Note Sima Maldonado MD - 10/01/2017 US KIDNEYS HISTORY: Calculus of ureter COMPARISON: 09/01/2016 ultrasound. 08/10/2016 CT. TECHNIQUE: Grayscale and color Doppler ultrasound imaging of thekidneys. FINDINGS: Right kidney: Normal right renal size. Measures 10.5 x 5.1 cm. Normalcortical echogenicity and cortical thickness. There is no hydronephrosisor shadowing calculus. Left kidney: Normal left renal size. Measures 11.5 x 4.5 cm. Normalcortical echogenicity and cortical thickness. There is no hydronephrosisor shadowing calculus. IMPRESSION: No hydronephrosis or shadowing renal calculi. POS - [id number] us Anatoly Beltran MD G US RENAL Final Result documented in this encounter Visit Diagnoses Diagnosis Calculus of ureter Calculus of ureter documented in this encounter Additional Health Concerns Infection Onset Date Last Indicated Resolved Time CoV-Risk 12/05/2020 12/05/2020 12/15/2020 1:25 AM EDT documented as of this encounter Care Teams Ladies' Hat Trimmer Relationship Specialty Start Date End Date Miquel Lo DO [address] [place] [phone] [email or web address] PCP - General 04/02/17 Miquel Lo DO [address] [place] [phone] [email or web address] Insurance Assigned Provider 07/04/23 Rikki Shen OT [address] [place] [phone] [email or web address] [email or web address] Transitions Ball WorkerThread Cutter Therapy 07/02/20 07/02/20 Chaparrita Harper, RENALDO [address] [place] [phone] [email or web address] Worker 06/05/21 Christopher Dunham MD [address] [place] [address] [address] [place] [address] [email or web address] Primary Oncologist Medical Oncology 04/22/22 09/08/24 Christy Novak CNP [address] [place] [phone] [email or web address] Nurse Practitioner Medical Oncology 05/05/22 Chaparrita Nicolas MD [address] [place] [phone] [email or web address] Geriatric Medicine 06/20/22 Jerrod Sanchez DO [address] [place] [phone] [email or web address] Hematology and Oncology 09/09/24 documented as of this encounter Additional Source Comments The information contained in this document represents components of the legal health record. It is not the complete legal health record.[facility]
[2024-11-21] MEDS: OLANZapine 10 MG VIAL IM (14:03)
--- NOTE | 2024-11-21 14:06 | PC.NURSE ---
Pt becoming increasingly agitated. Pulling off leads/BP cuff. Throwing his gown at his and yelling to leave him alone. Attempting to get out of bed. Pt given 10mg IM Zyprexa per order. Son at bedside. Will continue to monitor closely
--- NOTE | 2024-11-21 14:48 | PC.NURSE ---
4:1 assist needed in obtaining urine specimen d/t pt remaining disoriented/agitated/combative despite previous medication administration. straight catheterization performed. 200ml of dark lukas/foul smelling urine noted immediately post output. specimen obtained/sent to lab. family otherwise remains bedside for support. plan of care ongoing. call rae placed within reach.
[2024-11-21 14:55] LABS: Appearance Urine Cloudy; Glucose Urine UA Negative (Negative); PH 6.0 (5.0-9.0); Specific Gravity - Urine 1.010 (1.005-1.025); UMIC TRIGGER UACC YES
[2024-11-21 14:56] LABS: UACC Culture Trigger YES
--- NOTE | 2024-11-21 15:36 | PC.NURSE ---
Pt very agitated. Apparent AVH. Combative towards staff and family. MD notified. joint cleaning machine operator notified.
--- NOTE | 2024-11-21 18:07 | MHC.CM.ED ---
CM met with patient and family with Dr. Pizarro. Pt is very confused. Talking out to people who are not there. Family feels he is more confused that usual. Dr. Pizarro spoke to family at length regarding brain subdural hematoma, UTI, aggression and dementia. Family does not want aggressive treatment and is refusing transfer to [facility]. Pt is DNR/DNI. Provider did speak with them about comfort care. At this point, they would like the UTI treated. 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 Pt will be admitted to the hospital.
[2024-11-21] MEDS: cefTRIAXone sodium 1 GM, Lidocaine HCl 1 % MPF 2.1 ML IM (18:15)
[2024-11-21] MEDS: diazePAM 10 MG/2 ML CARTRIDGE 5 MG IM ×2 (18:15→23:58)
--- NOTE | 2024-11-21 19:09 | PHA.MEDREC ---
Addendum entered by Angelita Landa [facility] 11/21/24 19:51: reviewed Original Note: Pharmacy Consult ? Medication Reconciliation Pharmacy has completed the medication reconciliation. Utilized list from [facility]. Note left from facility: all am meds administered in addition with 25mg of Trazodone for agitation ; Trazodone not found on active med list and I kept it off the med rec.
--- NOTE | 2024-11-21 21:07 | PM.IMHP ---
History of Present Illness Date of Service: 11/21/24 Attending physician on admission: Armond Sepulveda Chief Complaint: Fall, increased agitation/restlessness Patient is a 79-year-old male with a past medical history significant for vascular dementia, BPH and multiple recent falls, who presented to the ED after an unwitnessed fall earlier today. The patient has had multiple recent falls lately, head strike and loss of consciousness unknown. The patient was complaining of left shoulder pain on arrival however is no longer able to give any history, he is currently hallucinating. His is bedside and they refused transfer to a facility for Neurosurgery as he had a subdural hematoma recently and he does not wish to have another surgery. He has been increasingly aggressive at the nursing facility that he resides at and his reports that they have been trying to get him to a nursing facility specifically for patient with dementia and aggression. She reports that he has not been eating or drinking much. The patient is unable to provide any history at this time. Review of Systems Review of Systems: Yes Unobtainable due to mental condition and Unobtainable due to mental status [facility] Medical History (Updated 11/21/24 @ 21:13 by Yumiko Peacock PA-C) Subdural hematoma BPH (benign prostatic hyperplasia) Vascular dementia Social History Patient Tobacco Use Status: Never used Tobacco Smoked in Last 30 Days: No Advance Directives: Yes Advance Directives Information Provided: No Advance Directives on File: No Do you have a plan to hurt others: No Plan Nutrition Risks: No Nutritional Risk Meds Allergies Allergy/AdvReac Type Severity Reaction Status Date / Time No Known Allergies Allergy Verified 11/21/24 11:51 Active Medications: Current Medications Calcium Carbonate (Calcium Carbonate 750 Mg Tab.Chew) 750 mg PO Q4H PRN PRN Reason: Heartburn Cefuroxime Axetil (Cefuroxime Axetil 500 Mg Tablet) 500 mg PO BID ENDY Last Admin: 11/21/24 16:24 Dose: Not Given Ceftriaxone Sodium 2 gm/ (Lidocaine HCl 4.2 ml) 0 gm IM Q24H ENDY Stop: 11/26/24 18:16 Hydromorphone HCl (Hydromorphone Hcl 0.5 Mg/0.5 Ml Syringe) 0.25 mg IVPUSH Q4H PRN; Protocol PRN Reason: Pain, Severe (Pain Scale 7-10) Acetaminophen (Ofirmev) 1,000 mg in 100 mls @ 400 mls/hr IV Q6H ENDY Magnesium Hydroxide (Milk Of Magnesia 30 Ml Oral.Susp) 30 ml PO DAILY PRN PRN Reason: Constipation Melatonin (Melatonin 3 Mg Tablet) 6 mg PO BEDTIME PRN PRN Reason: Insomnia Oxycodone HCl (Oxycodone Hcl Immed Release 5 Mg Tablet) 5 mg PO Q6H PRN PRN Reason: Pain, Moderate(Pain Scale 4-6) Sodium Chloride (0.9 % Sodium Chloride Flush 3 Ml Syringe) 3 [facility] Medications ?Medication ?Instructions ?Recorded ?Confirmed ?Last Taken ?Type acetaminophen 325 mg tablet 650 mg PO Q4H PRN Pain 11/21/24 11/21/24 Unknown History acetaminophen 325 mg tablet 650 mg PO Q6H PRN Fever 11/21/24 11/21/24 Unknown History atorvastatin 80 mg tablet 80 mg PO DAILY 11/21/24 11/21/24 Unknown History bisacodyl 10 mg rectal suppository 10 mg TX DAILY PRN Constipation 11/21/24 11/21/24 Unknown History hydrocortisone 1 % topical 1 appl topical BID 11/21/24 11/21/24 Unknown History ointment (Cortizone-10) ibuprofen 200 mg tablet 400 mg PO Q4H PRN Pain 11/21/24 11/21/24 Unknown History magnesium hydroxide 400 mg/5 mL 30 ml PO DAILY PRN Constipation 11/21/24 11/21/24 Unknown History oral suspension (Milk of Magnesia) melatonin 3 mg tablet 6 mg PO BEDTIME 11/21/24 11/21/24 Unknown History menthol 5 % topical patch (Icy Hot 1 patch topical DAILY 11/21/24 11/21/24 Unknown History (menthol)) midodrine 5 mg tablet 10 mg PO TID 11/21/24 11/21/24 11/21/24 History mirtazapine 15 mg tablet 7.5 mg PO BEDTIME 11/21/24 11/21/24 Unknown History pantoprazole 40 mg tablet,delayed 40 mg PO DAILY@0630 11/21/24 11/21/24 11/21/24 History release (Protonix) sennosides 8.6 mg tablet (Senna 8.6 mg PO Q12H PRN Constipation 11/21/24 11/21/24 Unknown History Lax) sodium phosphates 19 gram-7 118 ml TX DAILY PRN Constipation 11/21/24 11/21/24 Unknown History gram/118 mL enema (Fleet Enema) tamsulosin 0.4 mg capsule (Flomax) 0.4 mg PO DAILY 11/21/24 11/21/24 11/21/24 History Physical Exam Vital Signs and Narrative: Vital Signs: Last Vital Signs Temp 100.8 F H 11/21/24 18:20 Pulse 108 H 11/21/24 18:20 Resp 20 11/21/24 18:20 BP 125/80 11/21/24 18:20 Pulse Ox 99 11/21/24 18:20 O2 Del Method Room Air 11/21/24 18:20 BMI result Body Mass Index 21.9 General: A not oriented to person, place or time, no acute distress Resp: unable to asucultate, pt pushing refusing. does not appear in respiratory distress. no tripoding. CVS:RRR +murmur GI: NT, no distention Skin: Warm, dry Neuro: limited assessment due to hallucinating and pt not cooperative for exam. PEERL. able to move all extremities without difficulty. Extremities: No pitting edema Psych: VH, unclear if AH Results Labs 11/21/24 12:07 11/21/24 12:07 Labs: Laboratory Results - last 24 hr 11/21/24 11/21/24 12:07 14:42 MCV 97.5 MCH 31.8 MCHC 32.7 RDW 13.6 Plt Count 202 MPV 9.8 Immature Gran % (Auto) 0.4 Neut % (Auto) 88.1 H Lymph % (Auto) 5.6 L [place] % (Auto) 5.4 Eos % (Auto) 0.2 Baso % (Auto) 0.3 Lymph # (Auto) 0.6 L [place] # (Auto) 0.6 Eos # (Auto) 0.0 Baso # (Auto) 0.0 Abs Immat Gran (auto) 0.04 H Absolute Neuts (auto) 9.9 H Absolute Nucleated RBC 0.000 Nucleated RBC % (auto) 0.0 PT 12.8 H INR 1.1 Anion Gap 12 Estim Creat Clear Calc 52.6 Estimated GFR > 60 Random Glucose 107 Calcium 8.9 Urine Color Yellow Urine Appearance Cloudy Urine pH 6.0 Ur Specific [place] 1.010 Urine Protein 100 (2+) H Urine Glucose (UA) Negative Urine Ketones Negative Urine Blood Large (3+) H Urine Nitrite Negative Ur Leukocyte Esterase Moderate (2+) H Urine RBC >20 H Urine WBC 11-20 H Ur Squamous Epith Cells 0-2 Urine Bacteria None Seen Hyaline Casts 0-2 Imaging Radiologist's Impressions: Impressions Humerus X-Ray 11/21/24 11:43 IMPRESSION: No acute fracture. There is bowing deformity, mild expansion, coarsened trabecular pattern, and blade-like lytic lesion involving the middle third diaphysis of the humerus. There is also mild cortical thickening. The appearance is most consistent with Paget's disease. Recommend follow-up x-ray in 4-6 months to evaluate for progression. Possible calcific tendinitis involving posterior rotator cuff near the greater tuberosity. Electronically signed by: Miguel Ness MD 11/21/2024 12:58 PM EDT RP Shoulder X-Ray 11/21/24 11:45 IMPRESSION: 1. No acute bony abnormalities of the left shoulder on these 2 limited views. Electronically signed by: Selvin Lamb MD 11/21/2024 12:49 PM EDT RP Cervical Spine CT 11/21/24 12:05 IMPRESSION: 1. No CT evidence of acute cervical spine fracture or injury. Electronically signed by: Selvin Lamb MD 11/21/2024 12:39 PM EDT RP Head CT 11/21/24 12:05 IMPRESSION: Findings consistent with an acute on chronic right-sided subdural hematoma as described. These findings were discussed with Dr. Fernández in the emergency room on 11/21/2024 at 12:41 PM. Electronically signed by: Blayne Avila MD 11/21/2024 12:43 PM EDT RP Assessment and Plan (1) Acute on chronic intracranial subdural hematoma: Status: Acute (2) Sepsis: Status: Acute (3) Acute UTI: Status: Acute (4) Fall: Status: Acute Plan Patient is a 79-year-old male with a past medical history significant for vascular dementia, BPH and multiple recent falls, who presented to the ED after an unwitnessed fall earlier today. Findings on head CT consistent with acute on chronic subdural hematoma measuring 7 mm. Patient's is bedside and refuses transfer to facility with Neurosurgery, they are opting for comfort measures if needed, patient's mental status has been declining since arriving to the ED but UTI and dementia likely contributing. acute on chronic intracranial subdural hematoma secondary to fall - head CT with acute on chronic right-sided subdural hematoma measuring 7 mm in thickness. There is mild mass effect without midline shift. - C-spine CT negative for acute cervical spine fracture or injury - left shoulder x-ray negative - left humerus x-ray without acute fracture but does show a bowing deformity, mild expansion, coarsened trabecular pattern and blade like lytic lesion involving the middle 3rd diaphysis of the humerus. There is also mild cortical thickening. The appearance is most consistent with Paget's disease. Recommend follow-up x-ray in 4-6 months to evaluate for progression. Possible calcific tendinitis involving posterior rotator cuff near the greater tuberosity. - patient's family declines transferred to [facility] or any other home surgery, not interested in any interventions at this time - repeat head CT at midnight - neuro checks q.2h times 12 hours then q.4h - goal systolic blood pressure less than 140 for the 1st 24 hours - neurology consult - repeat H&H now Sepsis secondary to UTI - WBC 11.2, febrile at 100.8, tachycardic, lactic acid and blood cultures ordered - UA positive, culture pending - started on ceftriaxone in ED, continue pending culture - no need for IVF at this time, BP stable - monitor CBC and BMP Frequent falls - may be secondary to UTI - consider PT eval when appropriate Vascular dementia - continue statin, mirtazapine BPH - continue Flomax Hypotension - hold midodrine, resume when appropriate GERD - continue PPI DNR/DNI, pt's expresses if condition deteriorates 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 Quality Stroke Does the patient have a stroke diagnosis?: No VTE Prior VTE?: No VTE Risk Level:: Medical - moderate - high VTE Device Contraindication: N/A - Device Ordered VTE Drug Contraindication: Treatment Not Indicated
[2024-11-21 22:10] LABS: Hematocrit 39.1 % (42.0-52.0); Hemoglobin 13.1 g/dl (14.0-18.0)
[2024-11-21] MEDS: OLANZapine 10 MG VIAL 5 MG IM (22:14)
[2024-11-22 00:07] LABS: Reflex Lactate? Lactic Acid Added
[2024-11-22] MEDS: 0.9 % Sodium Chloride Flush 3 ML SYRINGE IVFLUSH ×2 (01:40→08:09)
[2024-11-22] MEDS: diazePAM 10 MG/2 ML CARTRIDGE 5 MG IVPUSH ×2 (02:14→18:28)
[2024-11-22 02:19] LABS: ~Lactic Acid-LAB USE ONLY 1.3 mmol/L (0.5-2.0)
[2024-11-22 03:39] VITALS: BP 123/85; PULSE 108; RESP 20; TEMP 37.2; O2SAT 92
[2024-11-22 07:07] VITALS: BP 129/99; PULSE 110; RESP 18; TEMP 36.6; O2SAT 95
[2024-11-22 09:03] LABS: MANUAL DIFF FLAG NO
[2024-11-22 09:08] LABS: Hematocrit 39.3 % (42.0-52.0); Hemoglobin 12.8 g/dl (14.0-18.0); Imm Gran Abs Auto 0.09 X10*3/uL (0.00-0.03); Imm Gran Pct Auto 0.6 % (0.0-0.4); Lymphocytes Absolute Auto 0.6 X10*3/uL (1.2-4.9); Mean Corpuscular HGB Conc 32.6 g/dl (31.0-36.0); Mean Corpuscular Hemoglobin 31.5 pg (27.0-33.0); Mean Corpuscular Volume 96.8 fL (80.0-98.0); NRBC Abs Auto 0.000 X10*3/uL (0.0-0.012); NRBC Pct Auto 0.0 /100WBC (0.0-0.2); Platelet Count 202 X10*3/uL (160-400); Red Blood Count 4.06 X10*6/uL (4.60-5.80); White Blood Count 14.6 X10*3/uL (4.8-10.8)
[2024-11-22 09:19] LABS: Anion Gap 16 (12-20); Blood Urea Nitrogen 22 mg/dL (9-16); Calcium 8.9 mg/dL (8.4-10.2); Carbon Dioxide 24 mmol/L (22-29); Chloride 108 mmol/L (96-108); Creatinine Clr Calc Pharmacy 46.3; Estimated Glomerular Filt Rate 57; Potassium 4.5 mmol/L (3.3-5.1); Sodium 143 mmol/L (135-145)
[2024-11-22 11:09] VITALS: BP 121/88; PULSE 109; RESP 20; TEMP 37.4; O2SAT 96
--- NOTE | 2024-11-22 11:32 | MHC.CM.PN ---
Ember 11/22/24, Pt. is confused due to Dementia, he has a sitter and is agitated. CM met with his , she is HCP, copy requested. She is also working with an real estate attorney on a [employer]. DCP is for pt. to go to a SNF that has a Dementia Unit, as his behaviors are too much for [facility] (where he came from) to manage. CM will put out referrals when and if pt.'s agitation decreases. said that goal of care is comfort measures, when the time is right, she will want Hospice services. CM to follow for DC needs.
--- NOTE | 2024-11-22 12:24 | P.PNIM_ITS ---
Subjective Subjective Date of Service: 11/22/24 Review of Systems Follow up AMS, subdural hematoma baseline dementia some on and off agitation Physical Exam 2 Exam: Exam: Appearing in no acute distress lung sounds are clear to auscultation heart regular rate rhythm, clear S1, S2 positive bowel sounds, abdomen is soft, nontender neuro patient is alert, confused Vital Signs: Vital Signs: Last Vital Signs Temp 99.3 F 11/22/24 11:09 Pulse 109 H 11/22/24 11:09 Resp 20 11/22/24 11:09 BP 121/88 11/22/24 11:09 Pulse Ox 96 11/22/24 11:09 O2 Del Method Room Air 11/22/24 11:09 BMI result Body Mass Index 20.6 Objective Data Active Medications Atorvastatin Calcium (Atorvastatin Calcium 80 Mg Tablet) 80 mg PO DAILY [facility] Last Admin: 11/22/24 08:11 Dose: 80 mg Documented By: CAMERON Bisacodyl (Bisacodyl 10 Mg Supp.Rect) 10 mg SD DAILY PRN PRN Reason: Constipation Calcium Carbonate (Calcium Carbonate 750 Mg Tab.Chew) 750 mg PO Q4H PRN PRN Reason: Heartburn Ceftriaxone Sodium (Ceftriaxone Sodium 1 Gm Vial) 1 gm IVPUSH Q24H [facility] Last Admin: 11/22/24 09:43 Dose: 1 gm Documented By: CAMERON Diazepam (Diazepam 10 Mg/2 Ml Cartridge) 5 mg IVPUSH ONCE PRN PRN Reason: agitation Last Admin: 11/22/24 02:14 Dose: 5 mg Documented By: NANDO Comments: PA ordered to give it Hydromorphone HCl (Hydromorphone Hcl 0.5 Mg/0.5 Ml Syringe) 0.5 mg IVPUSH Q4H PRN; Protocol PRN Reason: Pain, Severe (Pain Scale 7-10) Acetaminophen (Ofirmev) 1,000 mg in 100 mls @ 400 mls/hr IV Q6H [facility] Last Admin: 11/22/24 11:01 Dose: Not Given Documented By: CAMERON Non-Admin Reason: Medication Discontinued Magnesium Hydroxide (Milk Of Magnesia 30 Ml Oral.Susp) 30 ml PO DAILY PRN PRN Reason: Constipation Melatonin (Melatonin 3 Mg Tablet) 6 mg PO BEDTIME PRN PRN Reason: Insomnia Mirtazapine (Mirtazapine 7.5 Mg Tablet) 7.5 mg PO BEDTIME [facility] Oxycodone HCl (Oxycodone Hcl Immed Release 5 Mg Tablet) 5 mg PO Q6H PRN PRN Reason: Pain, Moderate(Pain Scale 4-6) Pantoprazole Sodium (Pantoprazole Sodium 20 Mg Tablet.Dr) 40 mg PO DAILY@0630 [facility] Last Admin: 11/22/24 06:18 Dose: 40 mg Documented By: NANDO Senna (Sennosides 8.6 Mg Tablet) 8.6 mg PO Q12H PRN PRN Reason: Constipation Sodium Chloride (0.9 % Sodium Chloride Flush 3 Ml Syringe) 3 ml IVFLUSH QSHIFT [facility] Last Admin: 11/22/24 08:09 Dose: 3 ml Documented By: CAMERON Tamsulosin HCl (Tamsulosin Hcl 0.4 Mg Capsule) 0.4 mg PO DAILY [facility] Last Admin: 11/22/24 08:11 Dose: 0.4 mg Documented By: CAMERON Labs 11/22/24 08:44 11/22/24 08:44 Labs: Laboratory Results - last 24 hr 11/21/24 11/21/24 11/21/24 12:07 14:42 21:55 MCV MCH MCHC RDW Plt Count MPV Immature Gran % (Auto) Neut % (Auto) Lymph % (Auto) [place] % (Auto) Eos % (Auto) Baso % (Auto) Lymph # (Auto) [place] # (Auto) Eos # (Auto) Baso # (Auto) Abs Immat Gran (auto) Absolute Neuts (auto) Absolute Nucleated RBC Nucleated RBC % (auto) Anion Gap 12 Estim Creat Clear Calc 52.6 Estimated GFR > 60 Random Glucose 107 Lactic Acid 2.3 H* Lactic Acid F/U @ 2Hr Calcium 8.9 Total Creatine Kinase 489 H Urine Color Yellow Urine Appearance Cloudy Urine pH 6.0 Ur Specific [place] 1.010 Urine Protein 100 (2+) H Urine Glucose (UA) Negative Urine Ketones Negative Urine Blood Large (3+) H Urine Nitrite Negative Ur Leukocyte Esterase Moderate (2+) H Urine RBC >20 H Urine WBC 11-20 H Ur Squamous Epith Cells 0-2 Urine Bacteria None Seen Hyaline Casts 0-2 11/22/24 11/22/24 01:52 08:44 MCV 96.8 MCH 31.5 MCHC 32.6 RDW 13.6 Plt Count 202 MPV 9.6 Immature Gran % (Auto) 0.6 H Neut % (Auto) 88.7 H Lymph % (Auto) 3.8 L Henderson % (Auto) 6.5 Eos % (Auto) 0.1 Baso % (Auto) 0.3 Lymph # (Auto) 0.6 L [place] # (Auto) 1.0 Eos # (Auto) 0.0 Baso # (Auto) 0.0 Abs Immat Gran (auto) 0.09 H Absolute Neuts (auto) 13.0 H Absolute Nucleated RBC 0.000 Nucleated RBC % (auto) 0.0 Anion Gap 16 Estim Creat Clear Calc 46.3 Estimated GFR 57 Random Glucose 118 H Lactic Acid Lactic Acid F/U @ 2Hr 1.3 Calcium 8.9 Total Creatine Kinase Urine Color Urine Appearance Urine pH Ur Specific [place] Urine Protein Urine Glucose (UA) Urine Ketones Urine Blood Urine Nitrite Ur Leukocyte Esterase Urine RBC Urine WBC Ur Squamous Epith Cells Urine Bacteria Hyaline Casts Microbiology Microbiology Results: Microbiology 11/21/24 Unknown Urine Culture - Preliminary Urine clean catch - Clean Catch Midstream Enterococcus/Streptococcus sp Assessment and Plan (1) Acute UTI: Status: Acute Plan 79-year-old male with a past medical history significant for vascular dementia, BPH and multiple recent falls, who presented to the ED after an unwitnessed fall earlier today. Findings on head CT consistent with acute on chronic subdural hematoma measuring 7 mm. Patient's is bedside and refuses transfer to facility with Neurosurgery, they are opting for comfort measures if needed, patient's mental status has been declining since arriving to the ED but UTI and dementia likely contributing. Acute on chronic intracranial subdural hematoma secondary to fall head CT with acute on chronic right-sided subdural hematoma measuring 7 mm in thickness. There is mild mass effect without midline shift. C-spine, left shoulder x-ray, left humerus x-ray all negative for acute abnormalities. patient's family declined transfer to [facility], not interested in any interventions at this time repeat head CT stable neurology consult Sepsis secondary to Enterococcus/Streptococcus UTI. Sepsis resolved WBC 11.2, febrile at 100.8, tachycardic, lactic acid and blood cultures ordered UA positive, culture pending started on ceftriaxone in ED, continue pending culture Frequent falls may be secondary to UTI consider PT eval when appropriate Vascular dementia more confused due to fall, but baseline dementia continue statin, mirtazapine BPH continue Flomax Hypotension midodrine GERD continue PPI DNR/DNI, pt's expresses if condition deteriorates will do [employer] VTE prophy: pneumoboots Quality Stroke Does the patient have a stroke diagnosis?: No VTE Prior VTE?: No VTE Risk Level:: Medical - moderate - high VTE Device Contraindication: N/A - Device Ordered VTE Drug Contraindication: Treatment Not Indicated
--- NOTE | 2024-11-22 13:57 | P.CNNE_ITS ---
History of Present Illness Data of Consult Service Date: 11/22/24 Primary Care Provider: Miquel Lo DO HPI Reason for consult: Subdural hematoma This is a 79-year-old male with a h/o vascular dementia, BPH and multiple recent falls, who presented to the ED after an unwitnessed fall earlier today. The patient has had multiple recent falls lately, head strike and loss of consciousness unknown. The patient was complaining of left shoulder pain on arrival, however, he was not able to give any history, he is currently hallucinating. His is bedside and they refused transfer to a facility for Neurosurgery as he had a subdural hematoma recently and he does not wish to have another surgery. He has been increasingly aggressive at the nursing facility that he resides at and his reports that they have been trying to get him to a nursing facility specifically for patient with dementia and aggression. She reports that he has not been eating or drinking much. The patient is unable to provide any history at this time. CT shows a 7mm right subdural hematoma which is isointense , ? subacute vs acute on chronic. Elevated white count and UA consistent with UTI. [facility] Past Medical History Medical History (Updated 11/21/24 @ 21:13 by Yumiko Peacock PA-C) Subdural hematoma BPH (benign prostatic hyperplasia) Vascular dementia Social History Social History Household Members: None Housing: Retirement Do you presently have visiting nurse or other home services: No (information obtained from pt's chart) Patient Tobacco Use Status: Never used Tobacco Smoked in Last 30 Days: No e-Cigarette/Vaping Use: Never Used Currently Displaying Signs/Symptoms of Drug Intoxication Withdrawal: No Advance Directives: Yes Advance Directives Information Provided: No Advance Directives on File: No Advance Directives Date on File: 11/21/24 Do you have a plan to hurt others: No Plan Recently lost weight without trying: Unsure Eating poorly because of decreased appetite: Yes Nutrition Risks: No Nutritional Risk Poor oral hygiene: No service: Yes Meds Allergies Allergy/AdvReac Type Severity Reaction Status Date / Time No Known Allergies Allergy Verified 11/21/24 11:51 Active Medications: Current Medications Atorvastatin Calcium (Atorvastatin Calcium 80 Mg Tablet) 80 mg PO DAILY [facility] Last Admin: 11/22/24 08:11 Dose: 80 mg Bisacodyl (Bisacodyl 10 Mg Supp.Rect) 10 mg [place] DAILY PRN PRN Reason: Constipation Calcium Carbonate (Calcium Carbonate 750 Mg Tab.Chew) 750 mg PO Q4H PRN PRN Reason: Heartburn Ceftriaxone Sodium (Ceftriaxone Sodium 1 Gm Vial) 1 gm IVPUSH Q24H [facility] Last Admin: 11/22/24 09:43 Dose: 1 gm Diazepam (Diazepam 10 Mg/2 Ml Cartridge) 5 mg IVPUSH ONCE PRN PRN Reason: agitation Last Admin: 11/22/24 02:14 Dose: 5 mg Hydromorphone HCl (Hydromorphone Hcl 0.5 Mg/0.5 Ml Syringe) 0.5 mg IVPUSH Q4H PRN; Protocol PRN Reason: Pain, Severe (Pain Scale 7-10) Acetaminophen (Ofirmev) 1,000 mg in 100 mls @ 400 mls/hr IV Q6H [facility] Last Admin: 11/22/24 11:01 Dose: Not Given Magnesium Hydroxide (Milk Of Magnesia 30 Ml Oral.Susp) 30 ml PO DAILY PRN PRN Reason: Constipation Melatonin (Melatonin 3 Mg Tablet) 6 mg PO BEDTIME PRN PRN Reason: Insomnia Mirtazapine (Mirtazapine 7.5 Mg Tablet) 7.5 mg PO BEDTIME [facility] Olanzapine (Olanzapine 10 Mg Vial) 5 mg IM DAILY PRN PRN Reason: agitation Oxycodone HCl (Oxycodone Hcl Immed Release 5 Mg Tablet) 5 mg PO Q6H PRN PRN Reason: Pain, Moderate(Pain Scale 4-6) Pantoprazole Sodium (Pantoprazole Sodium 20 Mg Tablet.Dr) 40 mg PO DAILY@0630 [facility] Last Admin: 11/22/24 06:18 Dose: 40 mg Senna (Sennosides 8.6 Mg Tablet) 8.6 mg PO Q12H PRN PRN Reason: Constipation Sodium Chloride (0.9 % Sodium Chloride Flush 3 Ml Syringe) 3 ml IVFLUSH QSHIFT [facility] Last Admin: 11/22/24 08:09 Dose: 3 ml Tamsulosin HCl (Tamsulosin Hcl 0.4 Mg Capsule) 0.4 mg PO DAILY [facility] Last Admin: 11/22/24 08:11 Dose: 0.4 mg Home Medications ?Medication ?Instructions ?Recorded ?Confirmed ?Last Taken ?Type acetaminophen 325 mg tablet 650 mg PO Q4H PRN Pain 11/21/24 Unknown History acetaminophen 325 mg tablet 650 mg PO Q6H PRN Fever 11/21/24 Unknown History atorvastatin 80 mg tablet 80 mg PO DAILY 11/21/24 08/08/21 Unknown History bisacodyl 10 mg rectal suppository 10 mg [place] DAILY PRN Constipation 11/21/24 11/21/24 Unknown History hydrocortisone 1 % topical 1 appl topical BID 11/21/24 11/21/24 Unknown History ointment (Cortizone-10) ibuprofen 200 mg tablet 400 mg PO Q4H PRN Pain 11/2111/21/24 Unknown History magnesium hydroxide 400 mg/5 mL 30 ml PO DAILY PRN Con stipation 11/21/24 11/21/24 Unknown History oral suspension (Milk of Magnesia) melatonin 3 mg tablet 6 mg PO BEDTIME 11/21/24 Unknown History menthol 5 % topical patch (Icy Hot 1 patch topical HORTENCIA LY 11/21/24 11/21/24 Unknown History (menthol)) midodrine 5 mg tablet 10 mg PO TID 11/21/2411/21/24 History mirtazapine 15 mg tablet 7.5 mg PO BEDTIME 11/21/24 0 11/21/24 Unknown History pantoprazole 40 mg tablet,delayed 40 mg PO DAILY@0630 11/21/24 11/21/24 11/21/24 History release (Protonix) sennosides 8.6 mg tablet (Senna 8.6 mg PO Q12H PRN Con stipation 11/21/24 11/21/24 Unknown History Lax) sodium phosphates 19 gram-7 118 ml [place] DAILY PRN Consti pation 11/21/24 11/21/24 Unknown History gram/118 mL enema (Fleet Enema) tamsulosin 0.4 mg capsule (Flomax) 0.4 mg PO DAILY 11/21/24 11/21/24 History Physical Exam 2 Vital Signs: Vital Signs: Last Vital Signs Temp 99.3 F 11/22/24 11:09 Pulse 109 H 11/22/24 11:09 Resp 20 11/22/24 11:09 BP 121/88 11/22/24 11:09 Pulse Ox 96 11/22/24 11:09 O2 Del Method Room Air 11/22/24 11:09 BMI result Body Mass Index 20.6 Neuro: Other: He is oriented to person only he is confused restless picking at his bed clothes. He did not recognize some of the family members and was mistaken his grandson for his son. He moves all 4 extremities actively. Neck is supple. Results Labs 11/22/24 08:44 11/22/24 08:44 Labs: Short CBC 11/21/24 11/22/24 Range/Units 22:07 08:44 WBC 14.6 H (4.8-10.8) X10*3/uL Hgb 13.1 L 12.8 L (14.0-18.0) g/dl Hct 39.1 L 39.3 L (42.0-52.0) % Plt Count 202 (160-400) X10*3/uL BMP 11/22/24 08:44 Sodium 143 Potassium 4.5 Chloride 108 Carbon Dioxide 24 BUN 22 H Creatinine 1.23 Calcium 8.9 Cardiac Enzymes 11/21/24 Range/Units 12:07 Total Creatine Kinase 489 H (38-174) U/L Urine 11/21/24 Range/Units 14:42 Urine Color Yellow Urine Appearance Cloudy Urine pH 6.0 (5.0-9.0) Ur Specific [place] 1.010 (1.005-1.025) Urine Protein 100 (2+) H (Neg-Trace) mg/dL Urine Glucose (UA) Negative (Negative) mg/dL Microbiology Microbiology Results: Microbiology 11/21/24 Unknown Urine clean catch - Clean Catch Midstream Urine Culture - Preliminary Enterococcus/Streptococcus sp Assessment and Plan (1) Acute on chronic intracranial subdural hematoma: Status: Acute The subdural hematoma is only 7 mm not producing any significant mass effect does not need to be evacuated at this time. It appears to have mixed densities which could be consistent with a subdural that is subacute because in September he had a subdural in the same area partially evacuated at [facility] the other possibility is that with his recent fall he may have had some fresh blood in that small chronic remnant of the subdural hematoma. Would recommend follow-up CT scan in 7-14 days. (2) Acute UTI: Status: Acute He has acute worsening is probably related to the UTI rather than the subdural hematoma. Treat UTI with appropriate antibiotics. (3) Vascular dementia: Status: Acute Procedures Date of Service Date of Service: 11/22/24
[2024-11-22] MEDS: OLANZapine 10 MG VIAL 5 MG IM (14:06)
--- NOTE | 2024-11-22 14:26 | MHC.SLORD ---
Speech Language Pathology Order Status: Received speech consult order, attempted X2 to see patient this pm, patient refused at lunch, then patient medicated secondary to agitation later p.m. [employer] will re-attempt 11/23/24.
[2024-11-22 16:00] VITALS: BP 112/74; PULSE 116; RESP 16; TEMP 36.6; O2SAT 96
[2024-11-22 19:56] VITALS: BP 148/72; PULSE 118; RESP 18; TEMP 37.1; O2SAT 94
[2024-11-23] VITALS (9 sets, daily range): BP systolic 100–131; BP diastolic 55–82; PULSE 96–120; RESP 16–18; TEMP 36.6–37.2; O2SAT 92–99
[2024-11-23] MEDS: diazePAM 10 MG/2 ML CARTRIDGE 5 MG IVPUSH ×2 (01:27→10:33)
--- NOTE | 2024-11-23 03:50 | PC.NURSE ---
Pt severely agitated despite PRN Valium and Dilaudid. Continues to rip off tele leads. Currently refusing leads. made aware.
[2024-11-23 08:26] LABS: Anion Gap 17 (12-20); Blood Urea Nitrogen 34 mg/dL (9-16); Calcium 8.6 mg/dL (8.4-10.2); Carbon Dioxide 16 mmol/L (22-29); Chloride 111 mmol/L (96-108); Creatinine Clr Calc Pharmacy 27.4; Estimated Glomerular Filt Rate 31; Potassium 4.9 mmol/L (3.3-5.1); Sodium 139 mmol/L (135-145)
--- NOTE | 2024-11-23 09:17 | MHC.SLORD ---
Speech Language Pathology Order Status: Sitter at bedside, RN consulted. AMS persists. STOCKROOM KEEPER to be called for clinical bedside swallow evaluation when pt able to participate.
[2024-11-23] MEDS: Lactated Ringers 1,000 ML 100 ML IVCONT ×2 (10:28→20:58)
[2024-11-23] MEDS: 0.9 % Sodium Chloride Flush 3 ML SYRINGE IVFLUSH (10:33)
--- NOTE | 2024-11-23 13:00 | MHC.CM.PN ---
Per rounds, pt. is not ready to DC, in renal failure, per his , he is not eating or drinking. DCP: maybe hospice services either here or at SNF. has reported that she does not have enough assistance to care for him at home.
--- NOTE | 2024-11-23 14:20 | HO.PM.IMPN ---
Subjective Subjective Date of Service: 11/23/24 Interval History: bladder scanned for 1100+ mL pulling of telemetry, not eating or drinking for months per altered, somewhat agitated Review of Systems Review of Systems: Yes Unobtainable due to mental status Physical Exam Vital Signs: Vital Signs: Last Vital Signs Temp 97.8 F 11/23/24 13:59 Pulse 96 11/23/24 13:59 Resp 16 11/23/24 13:59 BP 102/58 L 11/23/24 13:59 Pulse Ox 98 11/23/24 13:59 O2 Del Method Room Air 11/23/24 07:16 BMI result Body Mass Index 20.6 Gen: in no acute distress HEENT: sclera anicteric, moist mucus membranes Neck: supple Lungs: clear to auscultation bilaterally Heart: regular rate and rhythm, no murmurs Abd: soft, non-tender, non-distended Ext: no edema Skin: warm/well-perfused Neuro: alert, confused, moves all extremities Psych: impaired insight Objective Data Active Medications Atorvastatin Calcium (Atorvastatin Calcium 80 Mg Tablet) 80 mg PO DAILY [facility] Last Admin: 11/23/24 10:41 Dose: Not Given Documented By: THAD Non-Admin Reason: unable patient drowsy Bisacodyl (Bisacodyl 10 Mg Supp.Rect) 10 mg [place] DAILY PRN PRN Reason: Constipation Calcium Carbonate (Calcium Carbonate 750 Mg Tab.Chew) 750 mg PO Q4H PRN PRN Reason: Heartburn Diazepam (Diazepam 10 Mg/2 Ml Cartridge) 5 mg IVPUSH ONCE PRN PRN Reason: agitation Last Admin: 11/22/24 18:28 Dose: 5 mg Documented By: CAMERON Diazepam (Diazepam 10 Mg/2 Ml Cartridge) 5 mg IVPUSH Q8H PRN PRN Reason: Agitation Last Admin: 11/23/24 10:33 Dose: 5 mg Documented By: THAD Hydromorphone HCl (Hydromorphone Hcl 0.5 Mg/0.5 Ml Syringe) 0.5 mg IVPUSH Q4H PRN; Protocol PRN Reason: Pain, Severe (Pain Scale 7-10) Last Admin: 11/23/24 03:12 Dose: 0.5 mg Documented By: YARI Ampicillin Sodium 2 gm/ Sodium (Chloride) 100 mls @ 200 mls/hr IV Q12H [facility] Last Infusion: 11/23/24 13:08 Dose: Infused Documented By: THAD Lactated Ringer's (Lr) 1,000 mls @ 100 mls/hr IVCONT .Q10H [facility] Last Admin: 11/23/24 10:28 Dose: 100 mls/hr Documented By: THAD Magnesium Hydroxide (Milk Of Magnesia 30 Ml Oral.Susp) 30 ml PO DAILY PRN PRN Reason: Constipation Melatonin (Melatonin 3 Mg Tablet) 6 mg PO BEDTIME PRN PRN Reason: Insomnia Last Admin: 11/22/24 22:06 Dose: 6 mg Documented By: YARI Midodrine (Midodrine Hcl 10 Mg Tablet) 10 mg PO TIDWM [facility] Last Admin: 11/23/24 11:32 Dose: Not Given Documented By: THAD Non-Admin Reason: unable patient drowsy, unable to follow comma Mirtazapine (Mirtazapine 7.5 Mg Tablet) 7.5 mg PO BEDTIME [facility] Last Admin: 11/22/24 22:06 Dose: 7.5 mg Documented By: YARI Olanzapine (Olanzapine 10 Mg Vial) 5 mg IM DAILY PRN PRN Reason: agitation Last Admin: 11/22/24 14:06 Dose: 5 mg Documented By: MALDONA Oxycodone HCl (Oxycodone Hcl Immed Release 5 Mg Tablet) 5 mg PO Q6H PRN PRN Reason: Pain, Moderate(Pain Scale 4-6) Pantoprazole Sodium (Pantoprazole Sodium 20 Mg Tablet.) 40 mg PO DAILY@0630 [facility] Last Admin: 11/23/24 05:36 Dose: Not Given Documented By: YARI Non-Admin Reason: pt too lethargic Senna (Sennosides 8.6 Mg Tablet) 8.6 mg PO Q12H PRN PRN Reason: Constipation Sodium Chloride (0.9 % Sodium Chloride Flush 3 Ml Syringe) 3 ml IVFLUSH QSHIFT [facility] Last Admin: 11/23/24 10:33 Dose: 3 ml Documented By: THAD Tamsulosin HCl (Tamsulosin Hcl 0.4 Mg Capsule) 0.4 mg PO DAILY [facility] Last Admin: 11/23/24 10:42 Dose: Not Given Documented By: THAD Non-Admin Reason: unable patient drowsy Labs 11/22/24 08:44 11/23/24 06:45 Labs: Laboratory Results - last 24 hr 11/23/24 11/23/24 06:45 12:27 Anion Gap 17 Estim Creat Clear Calc 27.4 Estimated GFR 31 Random Glucose 115 Calcium 8.6 Ur Random Sodium 47.0 Urine Creatinine 103.76 Microbiology Microbiology Results: Microbiology 11/22/24 08:44 Blood Culture - Preliminary Blood - Venous No growth after 24 hours. 11/21/24 Unknown Urine Culture - Final Urine clean catch - Clean Catch Midstream Enterococcus faecalis 11/21/24 21:55 Blood Culture - Preliminary Blood - Venous No growth after 24 hours. Assessment and Plan (1) Acute UTI: Status: Acute Plan d3 for 79yo M residing at SNF for STR->LTC with vascular dementia who had unwitnessed fall and was found to have acute/chronic subdural hematoma and sepsis from UTI acute/chronic subdural hematoma - stable on repeat CT, per Neurology no evacuation needed at this time in absence of mass effect; [place] [facility] [place] CT in 7-14d sepsis due to Enterococcus faecalis UTI - change ceftriaxone to ampicillin ZUNIDLA - likely due to retention, recheck BMP after bladder decompression vascular dementia - continue statin, mirtazazpine hypotension - continue midodrine BPH - continue furosemide GERD - continue PPI VTE ppx - SCDs dispo - return to different SNF, considering hospice In my clinical judgment, the patient requires continued inpatient hospitalization for the following reasons: ZUNILDA, placement Total time managing care of this patient today: 45 minutes. Quality Stroke Does the patient have a stroke diagnosis?: No VTE Prior VTE?: No VTE Risk Level:: Medical - moderate - high VTE Device Contraindication: N/A - Device Ordered VTE Drug Contraindication: Treatment Not Indicated
[2024-11-23] MEDS: diazePAM 10 MG/2 ML CARTRIDGE 5 MG IM (21:56)
[2024-11-24] VITALS (8 sets, daily range): BP systolic 90–110; BP diastolic 53–85; PULSE 79–118; RESP 17–18; TEMP 36.2–37.2; O2SAT 92–96
[2024-11-24] MEDS: 0.9 % Sodium Chloride Flush 3 ML SYRINGE IVFLUSH (09:19)
[2024-11-24 10:16] LABS: MANUAL DIFF FLAG NO
[2024-11-24] MEDS: Lactated Ringers 1,000 ML 100 ML IVCONT ×2 (10:20→15:59)
[2024-11-24 10:31] LABS: Hematocrit 34.7 % (42.0-52.0); Hemoglobin 11.4 g/dl (14.0-18.0); Imm Gran Abs Auto 0.03 X10*3/uL (0.00-0.03); Imm Gran Pct Auto 0.6 % (0.0-0.4); Lymphocytes Absolute Auto 0.5 X10*3/uL (1.2-4.9); Mean Corpuscular HGB Conc 32.9 g/dl (31.0-36.0); Mean Corpuscular Hemoglobin 32.2 pg (27.0-33.0); Mean Corpuscular Volume 98.0 fL (80.0-98.0); NRBC Abs Auto 0.000 X10*3/uL (0.0-0.012); NRBC Pct Auto 0.0 /100WBC (0.0-0.2); Platelet Count 157 X10*3/uL (160-400); Red Blood Count 3.54 X10*6/uL (4.60-5.80); White Blood Count 5.1 X10*3/uL (4.8-10.8)
[2024-11-24 10:58] LABS: Anion Gap 10 (12-20); Blood Urea Nitrogen 34 mg/dL (9-16); Calcium 8.2 mg/dL (8.4-10.2); Carbon Dioxide 26 mmol/L (22-29); Chloride 114 mmol/L (96-108); Creatinine Clr Calc Pharmacy 60.0; Estimated Glomerular Filt Rate > 60; Potassium 3.6 mmol/L (3.3-5.1); Sodium 146 mmol/L (135-145)
--- NOTE | 2024-11-24 12:14 | HO.PM.IMPN ---
Subjective Subjective Date of Service: 11/24/24 Interval History: comfortable now, not agitated SCr normalized after Cruz Review of Systems Review of Systems: Yes Unobtainable due to mental status Physical Exam Vital Signs: Vital Signs: Last Vital Signs Temp 97.6 F 11/24/24 07:04 Pulse 79 11/24/24 07:04 Resp 18 11/24/24 07:04 BP 110/61 11/24/24 07:04 Pulse Ox 96 11/24/24 07:04 O2 Del Method Room Air 11/24/24 07:04 BMI result Body Mass Index 20.6 Gen: somnolent, in no acute distress HEENT: sclera anicteric, moist mucus membranes Neck: supple Lungs: clear to auscultation bilaterally Heart: regular rate and rhythm, no murmurs Abd: soft, non-tender, non-distended Ext: no edema Skin: warm/well-perfused Neuro: disoriented Psych: impaired insight Objective Data Active Medications Atorvastatin Calcium (Atorvastatin Calcium 80 Mg Tablet) 80 mg PO DAILY [facility] Last Admin: 11/24/24 09:22 Dose: Not Given Documented By: AMOS Non-Admin Reason: pt confused and drowsy Bisacodyl (Bisacodyl 10 Mg Supp.Rect) 10 mg [place] DAILY PRN PRN Reason: Constipation Calcium Carbonate (Calcium Carbonate 750 Mg Tab.Chew) 750 mg PO Q4H PRN PRN Reason: Heartburn Diazepam (Diazepam 10 Mg/2 Ml Cartridge) 5 mg IVPUSH ONCE PRN PRN Reason: agitation Last Admin: 11/22/24 18:28 Dose: 5 mg Documented By: CAMERON Diazepam (Diazepam 10 Mg/2 Ml Cartridge) 5 mg IVPUSH Q8H PRN PRN Reason: Agitation Last Admin: 11/23/24 10:33 Dose: 5 mg Documented By: THAD Hydromorphone HCl (Hydromorphone Hcl 0.5 Mg/0.5 Ml Syringe) 0.5 mg IVPUSH Q4H PRN; Protocol PRN Reason: Pain, Severe (Pain Scale 7-10) Last Admin: 11/23/24 03:12 Dose: 0.5 mg Documented By: YARI Ampicillin Sodium 2 gm/ Sodium (Chloride) 100 mls @ 200 mls/hr IV Q12H [facility] Last Infusion: 11/24/24 10:30 Dose: Infused Documented By: AMOS Lactated Ringer's (Lr) 1,000 mls @ 100 mls/hr IVCONT .Q10H [facility] Last Admin: 11/24/24 10:20 Dose: 100 mls/hr Documented By: AMOS Magnesium Hydroxide (Milk Of Magnesia 30 Ml Oral.Susp) 30 ml PO DAILY PRN PRN Reason: Constipation Melatonin (Melatonin 3 Mg Tablet) 6 mg PO BEDTIME PRN PRN Reason: Insomnia Last Admin: 11/22/24 22:06 Dose: 6 mg Documented By: ARUNTYBAFrancis Midodrine (Midodrine Hcl 10 Mg Tablet) 10 mg PO TIDWM [facility] Last Admin: 11/24/24 09:21 Dose: Not Given Documented By: AMOS Non-Admin Reason: Pt confused and drowsy Mirtazapine (Mirtazapine 7.5 Mg Tablet) 7.5 mg PO BEDTIME [facility] Last Admin: 11/23/24 20:26 Dose: Not Given Documented By: TORIN Non-Admin Reason: somnelent not safe to take po Olanzapine (Olanzapine 10 Mg Vial) 5 mg IM DAILY PRN PRN Reason: agitation Last Admin: 11/22/24 14:06 Dose: 5 mg Documented By: MALDONA Oxycodone HCl (Oxycodone Hcl Immed Release 5 Mg Tablet) 5 mg PO Q6H PRN PRN Reason: Pain, Moderate(Pain Scale 4-6) Pantoprazole Sodium (Pantoprazole Sodium 20 Mg Tablet.Dr) 40 mg PO DAILY@0630 [facility] Last Admin: 11/24/24 05:50 Dose: Not Given Documented By: TORIN Non-Admin Reason: unable to take PO safely Senna (Sennosides 8.6 Mg Tablet) 8.6 mg PO Q12H PRN PRN Reason: Constipation Sodium Chloride (0.9 % Sodium Chloride Flush 3 Ml Syringe) 3 ml IVFLUSH QSHIFT [facility] Last Admin: 11/24/24 09:19 Dose: 3 ml Documented By: AMOS Tamsulosin HCl (Tamsulosin Hcl 0.4 Mg Capsule) 0.4 mg PO DAILY [facility] Last Admin: 11/24/24 09:22 Dose: Not Given Documented By: AMOS Non-Admin Reason: pt confused and drowsy Labs 11/24/24 09:54 11/24/24 09:54 Labs: Laboratory Results - last 24 hr 11/23/24 11/24/24 12:27 09:54 MCV 98.0 MCH 32.2 MCHC 32.9 RDW 13.5 Plt Count 157 L MPV 10.1 Immature Gran % (Auto) 0.6 H Neut % (Auto) 77.2 H Lymph % (Auto) 9.9 L [place] % (Auto) 8.5 Eos % (Auto) 3.2 Baso % (Auto) 0.6 Lymph # (Auto) 0.5 L [place] # (Auto) 0.4 Eos # (Auto) 0.2 Baso # (Auto) 0.0 Abs Immat Gran (auto) 0.03 Absolute Neuts (auto) 3.9 Absolute Nucleated RBC 0.000 Nucleated RBC % (auto) 0.0 Anion Gap 10 L Estim Creat Clear Calc 60.0 Estimated GFR > 60 Random Glucose 76 Calcium 8.2 L Ur Random Sodium 47.0 Urine Creatinine 103.76 Microbiology Microbiology Results: Microbiology 11/22/24 08:44 Blood Culture - Preliminary Blood - Venous No growth after 48 hours. 11/21/24 21:55 Blood Culture - Preliminary Blood - Venous No growth after 48 hours. Assessment and Plan (1) Acute UTI: Status: Acute Plan d4 for 79yo M residing at SNF for STR->LTC with vascular dementia who had unwitnessed fall and was found to have acute/chronic subdural hematoma and sepsis from UTI acute/chronic subdural hematoma - stable on repeat CT, per Neurology no evacuation needed at this time in absence of mass effect; [place] [facility] [place] 7-14d sepsis due to Enterococcus faecalis UTI - changed ceftriaxone to ampicillin 11/23- ZUNILDA due to postrenal obstruction - resolved after Cruz placement vascular dementia - on statin, mirtazapine but not taking POs hypotension - on midodrine but not taking POs BPH - on tamsulosin but not taking POs GERD - IV PPI VTE ppx - SCDs dispo - return to different SNF, considering hospice In my clinical judgment, the patient requires continued inpatient hospitalization for the following reasons: hospice placement Total time managing care of this patient today: 45 minutes. Quality Stroke Does the patient have a stroke diagnosis?: No VTE Prior VTE?: No VTE Risk Level:: Medical - moderate - high VTE Device Contraindication: N/A - Device Ordered VTE Drug Contraindication: Treatment Not Indicated
--- NOTE | 2024-11-24 15:35 | MHC.CM.PN ---
Met with /HCP at bedside to discuss dc plan. IMM delivered (changed to inpatient 11/23). Patient lives w/ at home, was at [facility] for STR 10/16-11/21. was previously considering [facility]/hospice, but states she feels patient has improved and would like for him to continue STR, [facility] preferred. Per [facility] liaison, patient was behavioral at facility, requiring 1:1 on their unit, and they are unable to accept back. This CM sent updated notes indicating no agitation w/ request to reconsider accepting. Awaiting response. Will need new PT eval for referrals to other SNF's. also indicated that she feels patient will eventually need LTC. She is working on [employer] karen w/ an technical producer. She is aware LTC is not covered by Medicare and will prioritize completing the [employer] karen in case he needs to transition to LTC. Reports they do not have funds for private pay. CM sent request to MD for PT eval. Will continue to follow.
--- NOTE | 2024-11-24 18:56 | MHC.SL.SWA ---
Speech Pathologist Impression: Risk of Aspiration Due to: Dysphasia Diet Status: Liquid Consistency and Strategies for Safe Swallow: Liquid Intake Recommendation: Thin Liquid Intake Strategies: Solid Food Consistency: Dietary Recommendations: Pureed (NDD1) Additional Modifications to Solid Foods: Oral Medication Intake: Crushed with Puree Please contact the pharmacy regarding appropriate crushable or liquid drug formulations that are available whenever modified delivery is recommended. Compensatory Strategies and Precautions to be Taken for Safe Swallow: Supervision While Eating and Drinking for Safe Swallow: Direct Supervision (1:1) Foods to Avoid: Swallowing Recommended Treatments: Recommendation for Speech: Inpatient Speech Therapy Comment: Patient presents on limited assessment with most aspects of swallow WFL, however is expressing strong preference for eating purees. Patient is edentulous, but wears dentures, and otherwise has normal oral motor function. Patient is currently on ground diet ordered by MD, recommend downgrade diet to PUREE (NDD1) per patient preference, continue on Thin liquids, pills crushed in puree. As patient's behavior is variable, and has very poor PO/AFTT, NAPPER FIXER will continue to follow for toleration of diet. Patient is able to feed self, but requires supervision at meals to assure patient is engaged and progressing with meal. NAPPER FIXER adjusted diet in expanse. Frequency/Duration: Date Range for Service Req: Timeline to reassess: Category Specialist Clinican/Clinical Fellow: No Supervisory Statement: I have reviewed and agree with the student/clinical fellow's documentation: N/A Speech Language Pathologist: Becky Deluca M.A., [facility]
[2024-11-25] VITALS (12 sets, daily range): BP systolic 89–115; BP diastolic 55–66; PULSE 68–93; RESP 16–18; TEMP 36.1–36.9; O2SAT 93–98
[2024-11-25] MEDS: Lactated Ringers 1,000 ML 100 ML IVCONT (04:41)
[2024-11-25 06:43] LABS: Anion Gap 8 (12-20); Blood Urea Nitrogen 32 mg/dL (9-16); Calcium 7.8 mg/dL (8.4-10.2); Carbon Dioxide 26 mmol/L (22-29); Chloride 116 mmol/L (96-108); Creatinine Clr Calc Pharmacy 65.5; Estimated Glomerular Filt Rate > 60; Potassium 3.4 mmol/L (3.3-5.1); Sodium 147 mmol/L (135-145)
[2024-11-25 07:01] LABS: Hematocrit 32.6 % (42.0-52.0); Hemoglobin 10.8 g/dl (14.0-18.0); Mean Corpuscular HGB Conc 33.1 g/dl (31.0-36.0); Mean Corpuscular Hemoglobin 32.0 pg (27.0-33.0); Mean Corpuscular Volume 96.7 fL (80.0-98.0); NRBC Abs Auto 0.000 X10*3/uL (0.0-0.012); NRBC Pct Auto 0.0 /100WBC (0.0-0.2); Platelet Count 138 X10*3/uL (160-400); Red Blood Count 3.37 X10*6/uL (4.60-5.80); White Blood Count 5.6 X10*3/uL (4.8-10.8)
--- NOTE | 2024-11-25 11:25 | PC.NURSE ---
Patient alert and oriented to self. Able to identify being in [facility] intermittently. Calm and cooperative with care, meals, and medications this morning.
--- NOTE | 2024-11-25 11:37 | MHC.CM.PN ---
Addendum entered by Dulce Gonzalez RN 11/25/24 13:53: [facility] reviewing and will consider if remains behaviorally controlled by early next week. Urology consult pending. updated and agrees w/ plan. [facility] ANAYA updated. She feels comfortable accepting back if no bed offers from dementia unit and urology consult is complete. Can contact directly if cleared for dc over the weekend. Addendum entered by Dulce Gonzalez RN 11/25/24 11:45: MEDARDO JULIEN: Pattie Ciara [phone] Original Note: Per MD rounds patient will likely be medically cleared for dc tomorrow. PT eval complete, STR is the recommendation. Per RN, no behaviors at this time. CM spoke with [facility], who will consider accepting patient back, but is requesting urology referral d/t chronic UTI's leading to increased agitation. NAYANA sent tiger text to MD with this request. Awaiting response. NAYANA also agreed to place additional referrals, as ANAYA feels patient would benefit from xfer to facility w/ a dementia unit, but ANAYA reports they will continue to consider patient and follow in the case that patient does not get another bed offer. Referrals sent via [facility]. CM will continue to follow.
--- NOTE | 2024-11-25 12:03 | P.PNIM_ITS ---
Subjective Subjective Date of Service: 11/25/24 Interval History: more awake, less agitated; taking POs question of bladder CA raised by [facility] Review of Systems Review of Systems: Yes Unobtainable due to mental status Physical Exam 2 Vital Signs: Vital Signs: Last Vital Signs Temp 97.7 F 11/25/24 11:57 Pulse 80 11/25/24 11:57 Resp 18 11/25/24 11:57 BP 89/59 L 11/25/24 11:57 Pulse Ox 95 11/25/24 11:57 O2 Del Method Room Air 11/25/24 11:57 BMI result Body Mass Index 20.6 Gen: confused, in NAD HEENT: sclera anicteric, moist mucus membranes Neck: supple Lungs: clear to auscultation bilaterally Heart: regular rate and rhythm, no murmurs Abd: soft, non-tender, non-distended Ext: no edema : Cruz draining clear urine Skin: warm/well-perfused Neuro: disoriented, moves all extremities Psych: restricted affect Objective Data Active Medications Atorvastatin Calcium (Atorvastatin Calcium 80 Mg Tablet) 80 mg PO DAILY [facility] Last Admin: 11/25/24 09:16 Dose: 80 mg Documented By: MATT Bisacodyl (Bisacodyl 10 Mg Supp.Rect) 10 mg [place] DAILY PRN PRN Reason: Constipation Calcium Carbonate (Calcium Carbonate 750 Mg Tab.Chew) 750 mg PO Q4H PRN PRN Reason: Heartburn Diazepam (Diazepam 10 Mg/2 Ml Cartridge) 5 mg IVPUSH ONCE PRN PRN Reason: agitation Last Admin: 11/22/24 18:28 Dose: 5 mg Documented By: CAMERON Diazepam (Diazepam 10 Mg/2 Ml Cartridge) 5 mg IVPUSH Q8H PRN PRN Reason: Agitation Last Admin: 11/23/24 10:33 Dose: 5 mg Documented By: THAD Hydromorphone HCl (Hydromorphone Hcl 0.5 Mg/0.5 Ml Syringe) 0.5 mg IVPUSH Q4H PRN; Protocol PRN Reason: Pain, Severe (Pain Scale 7-10) Last Admin: 11/23/24 03:12 Dose: 0.5 mg Documented By: YARI Ampicillin Sodium 2 gm/ Sodium (Chloride) 100 mls @ 200 mls/hr IV Q12H [facility] Last Infusion: 11/25/24 10:50 Dose: Infused Documented By: MATT Dextrose (D5w) 1,000 mls @ 50 mls/hr IVCONT .Q20H [facility] Last Admin: 11/25/24 09:16 Dose: 50 mls/hr Documented By: MATT Magnesium Hydroxide (Milk Of Magnesia 30 Ml Oral.Susp) 30 ml PO DAILY PRN PRN Reason: Constipation Melatonin (Melatonin 3 Mg Tablet) 6 mg PO BEDTIME PRN PRN Reason: Insomnia Last Admin: 11/22/24 22:06 Dose: 6 mg Documented By: YARI Midodrine (Midodrine Hcl 10 Mg Tablet) 10 mg PO TIDWM [facility] Last Admin: 11/25/24 09:16 Dose: 10 mg Documented By: MATT Mirtazapine (Mirtazapine 7.5 Mg Tablet) 7.5 mg PO BEDTIME [facility] Last Admin: 11/24/24 20:12 Dose: 7.5 mg Documented By: CAROLINA Olanzapine (Olanzapine 10 Mg Vial) 5 mg IM DAILY PRN PRN Reason: agitation Last Admin: 11/22/24 14:06 Dose: 5 mg Documented By: MALDONMaximo Oxycodone HCl (Oxycodone Hcl Immed Release 5 Mg Tablet) 5 mg PO Q6H PRN PRN Reason: Pain, Moderate(Pain Scale 4-6) Pantoprazole Sodium (Pantoprazole Sodium 40 Mg/10 Ml Vial) 40 mg IVPUSH DAILY@0630 [facility] Last Admin: 11/25/24 05:03 Dose: 40 mg Documented By: CAROLINA Sodium Chloride (0.9 % Sodium Chloride Flush 3 Ml Syringe) 3 ml IVFLUSH QSHIFT [facility] Last Admin: 11/25/24 09:26 Dose: Not Given Documented By: MATT Non-Admin Reason: Previously Administered Tamsulosin HCl (Tamsulosin Hcl 0.4 Mg Capsule) 0.4 mg PO DAILY [facility] Last Admin: 11/25/24 09:30 Dose: 0.4 mg Documented By: MATT Labs 11/25/24 05:24 11/25/24 05:24 Labs: Laboratory Results - last 24 hr 11/25/24 05:24 MCV 96.7 MCH 32.0 MCHC 33.1 RDW 13.4 Plt Count 138 L MPV 10.1 Absolute Nucleated RBC 0.000 Nucleated RBC % (auto) 0.0 Anion Gap 8 L Estim Creat Clear Calc 65.5 Estimated GFR > 60 Random Glucose 68 Calcium 7.8 L Microbiology Microbiology Results: Microbiology 11/22/24 08:44 Blood Culture - Preliminary Blood - Venous No growth after 48 hours. Assessment and Plan (1) Acute UTI: Status: Acute Plan d5 for 79yo M residing at [facility] for STR->LTC with vascular dementia who had unwitnessed fall and was found to have acute/chronic subdural hematoma and sepsis from UTI acute/chronic subdural hematoma - stable on repeat CT, per Neurology no evacuation needed at this time in absence of mass effect; had [place] [facility] [place] CT [place] 7-14d recommended sepsis due to Enterococcus faecalis UTI - changed ceftriaxone to ampicillin 11/23- [can complete course with amoxicillin upon discharge] ZUNILDA due to postrenal obstruction - resolved after Cruz placement question of bladder CA - workup started at [facility] and Urology consult requested; will also send urine cytology and do CT A/P with contrast hyperNa - replete free water deficit 1200 mL over 24h IV, recheck BMP in AM vascular dementia - on statin, mirtazapine - NON 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 Quality Stroke Does the patient have a stroke diagnosis?: No VTE Prior VTE?: No VTE Risk Level:: Medical - moderate - high VTE Device Contraindication: N/A - Device Ordered VTE Drug Contraindication: Treatment Not Indicated
--- NOTE | 2024-11-25 13:00 | MHC.SL.SWA ---
Speech Pathologist Impression: Risk of Aspiration Risk of Aspiration Due to: Behavioral Dysphasia Diet Status:Upgrade solids to NDD2 Liquid Consistency and Strategies for Safe Swallow: Liquid Intake Recommendation: Thin Liquid Intake Strategies: Small Sips Solid Food Consistency: Dietary Recommendations: Grnd/Mech Altered (NDD2) Additional Modifications to Solid Foods: Patient is edentulous, but wears dentures, and otherwise has normal oral motor function. As patient's behavior is variable, and has very poor PO/AFTT, MARKET STALL VENDOR will continue to follow for toleration of diet. Patient is able to feed self, but requires supervision at meals to assure patient is engaged and progressing with meal. Oral Medication Intake: Crushed with Puree Please contact the pharmacy regarding appropriate crushable or liquid drug formulations that are available whenever modified delivery is recommended. Compensatory Strategies and Precautions to be Taken for Safe Swallow: Sitting Upright (90 deg) Small Bites and Sips Alternate Liquids/Solids Rate of Ingestion Change Supervision While Eating and Drinking for Safe Swallow: Direct Supervision (1:1) Swallowing Recommended Treatments: Compens. Strategy Educat. Recommendation for Speech: Inpatient Speech Therapy Document Processing Specialist Clinican/Clinical Fellow: No Supervisory Statement: I have reviewed and agree with the student/clinical fellow's documentation: N/A Speech Language Pathologist: Kimberly Eason M.A., CCC-MARKET STALL VENDOR
--- NOTE | 2024-11-25 13:24 | PC.NURSE ---
Approximately 1230- 1:1 sitter D/C'd per Dr. Poole. Zohaib camera in place. Bed in low position. Call rae within reach. at bedside visiting with patient. Awaiting transport to CT scan.
[2024-11-25] MEDS: iohexoL 350 MG/ML 100 ML INFUS..BTL IV (15:17)
[2024-11-25] MEDS: diazePAM 10 MG/2 ML CARTRIDGE 5 MG IVPUSH (20:41)
[2024-11-25] MEDS: OLANZapine 10 MG VIAL 5 MG IM (21:05)
[2024-11-25] MEDS: 0.9 % Sodium Chloride Flush 3 ML SYRINGE IVFLUSH (22:54)
[2024-11-26] VITALS (11 sets, daily range): BP systolic 88–107; BP diastolic 54–63; PULSE 86–100; RESP 18–20; TEMP 36.3–37.5; O2SAT 96
--- NOTE | 2024-11-26 | ECG_ITS ---
Test Reason : tachy Blood Pressure : */* mmHG Vent. Rate : 97 BPM Atrial Rate : 97 BPM P-R Int : 138 ms QRS Dur : 80 ms QT Int : 374 ms P-R-T Axes : 72 42 42 degrees QTcB Int : 474 ms Undetermined rhythm Low voltage QRS Borderline ECG No previous ECGs available Referred By: Maykel Stephenson Electronically Signed By: MEGAN BUSH
--- NOTE | 2024-11-26 03:47 | PC.NURSE ---
Approximately around 20:30 pt became agitated and kept trying to get up stating he wanted to go downstairs. Pt became increasingly combative and struck at RUBBER GASKET INSPECTOR TRIMMER, scratching her skin. Security was called into the room. Pt was combative, aggressive, making threats, and continuing to get out of bed. Valium was administered, see MAR. The pt continued to be aggressive, attempting to strike security, making threats. IM Zyprexa administered, see MAR.
[2024-11-26 07:12] LABS: Anion Gap 12 (12-20); Blood Urea Nitrogen 20 mg/dL (9-16); Calcium 7.7 mg/dL (8.4-10.2); Carbon Dioxide 23 mmol/L (22-29); Chloride 112 mmol/L (96-108); Creatinine Clr Calc Pharmacy 69.5; Estimated Glomerular Filt Rate > 60; Potassium 3.2 mmol/L (3.3-5.1); Sodium 144 mmol/L (135-145)
--- NOTE | 2024-11-26 07:34 | PC.NURSE ---
Patient's IV is positional. IV fluids marked as done in MAR. IV is continuing to infuse at ordered rate. Patient's arm placed into supportive position to continue infusion. Patient educated on keeping arm straight.
--- NOTE | 2024-11-26 08:02 | PC.NURSE ---
IVF now paused due to positional IV. Dr. Stephenson aware with plan to attempt obtaining new access.
--- NOTE | 2024-11-26 08:35 | PC.NURSE ---
New IV access established. IVF resumed at ordered rate.
--- NOTE | 2024-11-26 09:15 | P.PNIM_ITS ---
Subjective Subjective Date of Service: 11/26/24 Interval History: more awake, less agitated; taking POs question of bladder CA raised by [facility] Review of Systems Review of Systems: Yes Unobtainable due to mental status Physical Exam 2 Exam: Exam: Gen: confused, in NAD HEENT: sclera anicteric, moist mucus membranes Neck: supple Lungs: clear to auscultation bilaterally Heart: regular rate and rhythm, no murmurs Abd: soft, non-tender, non-distended Ext: no edema : Cruz draining clear urine Skin: warm/well-perfused Neuro: disoriented, moves all extremities Psych: restricted affect Vital Signs: Vital Signs: Last Vital Signs Temp 99.5 F 11/26/24 07:50 Pulse 98 11/26/24 07:50 Resp 18 11/26/24 07:50 BP 88/54 L 11/26/24 08:01 Pulse Ox 96 11/26/24 07:50 O2 Del Method Room Air 11/26/24 07:50 BMI result Body Mass Index 20.6 Objective Data Active Medications Atorvastatin Calcium (Atorvastatin Calcium 80 Mg Tablet) 80 mg PO DAILY ON LICENSE OF [facility] Last Admin: 11/26/24 08:29 Dose: 80 mg Documented By: MATT Bisacodyl (Bisacodyl 10 Mg Supp.Rect) 10 mg [place] DAILY PRN PRN Reason: Constipation Calcium Carbonate (Calcium Carbonate 750 Mg Tab.Chew) 750 mg PO Q4H PRN PRN Reason: Heartburn Diazepam (Diazepam 10 Mg/2 Ml Cartridge) 5 mg IVPUSH ONCE PRN PRN Reason: agitation Last Admin: 11/22/24 18:28 Dose: 5 mg Documented By: CAMERON Diazepam (Diazepam 10 Mg/2 Ml Cartridge) 5 mg IVPUSH Q8H PRN PRN Reason: Agitation Last Admin: 11/25/24 20:41 Dose: 5 mg Documented By: DIPTI Hydromorphone HCl (Hydromorphone Hcl 0.5 Mg/0.5 Ml Syringe) 0.5 mg IVPUSH Q4H PRN; Protocol PRN Reason: Pain, Severe (Pain Scale 7-10) Last Admin: 11/23/24 03:12 Dose: 0.5 mg Documented By: YARI Ampicillin Sodium 2 gm/ Sodium (Chloride) 100 mls @ 200 mls/hr IV Q12H ON LICENSE OF [facility] Last Infusion: 11/25/24 23:22 Dose: Infused Documented By: DIPTI Dextrose (D5w) 1,000 mls @ 50 mls/hr IVCONT .Q20H ON LICENSE OF [facility] Last Admin: 11/26/24 04:04 Dose: Not Given Documented By: DIPTI Non-Admin Reason: IV Running Magnesium Hydroxide (Milk Of Magnesia 30 Ml Oral.Susp) 30 ml PO DAILY PRN PRN Reason: Constipation Melatonin (Melatonin 3 Mg Tablet) 6 mg PO BEDTIME PRN PRN Reason: Insomnia Last Admin: 11/22/24 22:06 Dose: 6 mg Documented By: YARI Midodrine (Midodrine Hcl 10 Mg Tablet) 10 mg PO TIDWM ON LICENSE OF [facility] Last Admin: 11/26/24 08:29 Dose: 10 mg Documented By: MATT Mirtazapine (Mirtazapine 7.5 Mg Tablet) 7.5 mg PO BEDTIME ON LICENSE OF [facility] Last Admin: 11/25/24 22:50 Dose: 7.5 mg Documented By: DIPTI Olanzapine (Olanzapine 10 Mg Vial) 5 mg IM DAILY PRN PRN Reason: agitation Last Admin: 11/25/24 21:05 Dose: 5 mg Documented By: DIPTI Oxycodone HCl (Oxycodone Hcl Immed Release 5 Mg Tablet) 5 mg PO Q6H PRN PRN Reason: Pain, Moderate(Pain Scale 4-6) Pantoprazole Sodium (Pantoprazole Sodium 40 Mg/10 Ml Vial) 40 mg IVPUSH DAILY@0630 ON LICENSE OF [facility] Last Admin: 11/26/24 06:26 Dose: 40 mg Documented By: DIPTI Sodium Chloride (0.9 % Sodium Chloride Flush 3 Ml Syringe) 3 ml IVFLUSH QSHIFT ON LICENSE OF [facility] Last Admin: 11/26/24 08:35 Dose: Not Given Documented By: MATT Non-Admin Reason: Previously Administered Tamsulosin HCl (Tamsulosin Hcl 0.4 Mg Capsule) 0.4 mg PO DAILY ON LICENSE OF [facility] Last Admin: 11/26/24 08:28 Dose: 0.4 mg Documented By: MATT Labs 11/25/24 05:24 11/26/24 06:12 Labs: Laboratory Results - last 24 hr 11/26/24 06:12 Hold Purple Top SEE NOTE Anion Gap 12 Estim Creat Clear Calc 69.5 Estimated GFR > 60 Random Glucose 102 Calcium 7.7 L Hold Yellow Top See Note Assessment and Plan (1) Acute UTI: Status: Acute Plan 79M residing at [facility] for STR->LTC with PMH vascular dementia had unwitnessed fall and was found to have acute/chronic subdural hematoma and sepsis from UTI acute/chronic subdural hematoma stable on repeat CT, per Neurology no evacuation needed at this time in absence of mass effect; had subdural in same area partially evacuated at [facility] [place]; repeat CT in 7-14d recommended sepsis due to Enterococcus faecalis UTI changed ceftriaxone to ampicillin 11/23- [can complete course with amoxicillin upon discharge] ZUNILDA due to postrenal obstruction resolved after Cruz placement question of bladder CA workup started at [facility] and Urology consult requested; will also send urine cytology and do CT A/P with contrast hyperNa replete free water deficit vascular dementia on statin, mirtazapine 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 Quality Stroke Does the patient have a stroke diagnosis?: No VTE Prior VTE?: No VTE Risk Level:: Medical - moderate - high VTE Device Contraindication: N/A - Device Ordered VTE Drug Contraindication: Treatment Not Indicated
[2024-11-26] MEDS: Potassium Chloride Packet 20 MEQ PACKET 40 MEQ PO (09:26)
[2024-11-26] MEDS: Lactated Ringers 1,000 ML 999 ML IV (10:13)
[2024-11-26] MEDS: OLANZapine 10 MG VIAL 5 MG IM (18:35)
--- NOTE | 2024-11-26 18:52 | PC.NURSE ---
1814- Patient became agitated, demanding to get out of bed. Patient offered assistance to recliner but declined. Yelling at staff and threatening to leave. Patient gesturing legs to kick at staff. Verbal redirection attempted multiple times without success. Patient's behavior continued to escalate. Dr. Stephenson notified. Medication administered for agitation. See MAR for details.
[2024-11-26] MEDS: 0.9 % Sodium Chloride Flush 3 ML SYRINGE IVFLUSH (20:44)
[2024-11-27] VITALS (9 sets, daily range): BP systolic 88–116; BP diastolic 50–62; PULSE 80–93; RESP 16–18; TEMP 36.3–36.9; O2SAT 95–99
[2024-11-27 06:40] LABS: Hematocrit 33.2 % (42.0-52.0); Hemoglobin 11.1 g/dl (14.0-18.0); Mean Corpuscular HGB Conc 33.4 g/dl (31.0-36.0); Mean Corpuscular Hemoglobin 31.6 pg (27.0-33.0); Mean Corpuscular Volume 94.6 fL (80.0-98.0); NRBC Abs Auto 0.000 X10*3/uL (0.0-0.012); NRBC Pct Auto 0.0 /100WBC (0.0-0.2); Platelet Count 134 X10*3/uL (160-400); Red Blood Count 3.51 X10*6/uL (4.60-5.80); White Blood Count 6.7 X10*3/uL (4.8-10.8)
[2024-11-27 06:55] LABS: Anion Gap 10 (12-20); Blood Urea Nitrogen 13 mg/dL (9-16); Calcium 7.3 mg/dL (8.4-10.2); Carbon Dioxide 22 mmol/L (22-29); Chloride 114 mmol/L (96-108); Creatinine Clr Calc Pharmacy 77.0; Estimated Glomerular Filt Rate > 60; Magnesium 1.7 mg/dL (1.6-2.6); Potassium 3.2 mmol/L (3.3-5.1); Sodium 143 mmol/L (135-145)
[2024-11-27] MEDS: Magnesium Sulfate/H2O 2 GM/50 ML PIGGYBACK IV (07:43)
--- NOTE | 2024-11-27 08:51 | P.PNIM_ITS ---
Subjective Subjective Date of Service: 11/27/24 Interval History: non participatory Physical Exam 2 Exam: Exam: Gen: confused, in NAD HEENT: sclera anicteric, moist mucus membranes Neck: supple Lungs: clear to auscultation bilaterally Heart: regular rate and rhythm, no murmurs Abd: soft, non-tender, non-distended Ext: no edema : Cruz draining clear urine Skin: warm/well-perfused Neuro: disoriented, moves all extremities Psych: restricted affect Vital Signs: Vital Signs: Last Vital Signs Temp 98.4 F 11/27/24 07:38 Pulse 89 11/27/24 07:38 Resp 16 11/27/24 07:38 BP 91/55 L 11/27/24 07:38 Pulse Ox 95 11/27/24 03:40 O2 Del Method Room Air 11/27/24 07:38 BMI result Body Mass Index 20.6 Objective Data Active Medications Atorvastatin Calcium (Atorvastatin Calcium 80 Mg Tablet) 80 mg PO DAILY [facility] Last Admin: 11/26/24 08:29 Dose: 80 mg Documented By: MATT Bisacodyl (Bisacodyl 10 Mg Supp.Rect) 10 mg [place] DAILY PRN PRN Reason: Constipation Calcium Carbonate (Calcium Carbonate 750 Mg Tab.Chew) 750 mg PO Q4H PRN PRN Reason: Heartburn Diazepam (Diazepam 10 Mg/2 Ml Cartridge) 5 mg IVPUSH ONCE PRN PRN Reason: agitation Last Admin: 11/22/24 18:28 Dose: 5 mg Documented By: CAMERON Diazepam (Diazepam 10 Mg/2 Ml Cartridge) 5 mg IVPUSH Q8H PRN PRN Reason: Agitation Last Admin: 11/25/24 20:41 Dose: 5 mg Documented By: DIPTI Hydromorphone HCl (Hydromorphone Hcl 0.5 Mg/0.5 Ml Syringe) 0.5 mg IVPUSH Q4H PRN; Protocol PRN Reason: Pain, Severe (Pain Scale 7-10) Last Admin: 11/23/24 03:12 Dose: 0.5 mg Documented By: YARI Ampicillin Sodium 2 gm/ Sodium (Chloride) 100 mls @ 200 mls/hr IV Q12H [facility] Last Infusion: 11/26/24 21:28 Dose: Infused Documented By: DIPTI Magnesium Sulfate (Magnesium Sulfate/H2o) 2 gm in 50 mls @ 25 mls/hr IV ONCE ONE Stop: 11/27/24 08:57 Last Admin: 11/27/24 07:43 Dose: 25 mls/hr Documented By: MATT Magnesium Hydroxide (Milk Of Magnesia 30 Ml Oral.Susp) 30 ml PO DAILY PRN PRN Reason: Constipation Melatonin (Melatonin 3 Mg Tablet) 6 mg PO BEDTIME PRN PRN Reason: Insomnia Last Admin: 11/22/24 22:06 Dose: 6 mg Documented By: YARI Midodrine (Midodrine Hcl 10 Mg Tablet) 10 mg PO TIDWM [facility] Last Admin: 11/26/24 17:38 Dose: 10 mg Documented By: MATT Mirtazapine (Mirtazapine 7.5 Mg Tablet) 7.5 mg PO BEDTIME [facility] Last Admin: 11/26/24 20:44 Dose: 7.5 mg Documented By: DIPTI Olanzapine (Olanzapine 10 Mg Vial) 5 mg IM DAILY PRN PRN Reason: agitation Last Admin: 11/26/24 18:35 Dose: 5 mg Documented By: MATT Comments: Given early per Dr. Stephenson. Oxycodone HCl (Oxycodone Hcl Immed Release 5 Mg Tablet) 5 mg PO Q6H PRN PRN Reason: Pain, Moderate(Pain Scale 4-6) Pantoprazole Sodium (Pantoprazole Sodium 40 Mg/10 Ml Vial) 40 mg IVPUSH DAILY@0630 [facility] Last Admin: 11/27/24 05:43 Dose: 40 mg Documented By: DIPTI Sodium Chloride (0.9 % Sodium Chloride Flush 3 Ml Syringe) 3 ml IVFLUSH QSHIFT [facility] Last Admin: 11/26/24 20:44 Dose: 3 ml Documented By: DIPTI Tamsulosin HCl (Tamsulosin Hcl 0.4 Mg Capsule) 0.4 mg PO DAILY [facility] Last Admin: 11/26/24 08:28 Dose: 0.4 mg Documented By: MATT Labs 11/27/24 06:20 11/27/24 06:20 Labs: Laboratory Results - last 24 hr 11/27/24 06:20 MCV 94.6 MCH 31.6 MCHC 33.4 RDW 13.1 Plt Count 134 L MPV 10.5 Absolute Nucleated RBC 0.000 Nucleated RBC % (auto) 0.0 Anion Gap 10 L Estim Creat Clear Calc 77.0 Estimated GFR > 60 Random Glucose 112 Calcium 7.3 L Magnesium 1.7 Microbiology Microbiology Results: Microbiology 11/21/24 21:55 Blood Culture - Final Blood - Venous No growth after 5 days. Assessment and Plan (1) Acute UTI: Status: Acute Plan 79M residing at [facility] for [facility]->LTC with PMH vascular dementia had unwitnessed fall and was found to have acute/chronic subdural hematoma and sepsis from UTI acute/chronic subdural hematoma stable on repeat CT, per Neurology no evacuation needed at this time in absence of mass effect; had subdural in same area partially evacuated at [facility] [place]; repeat CT in 7-14d recommended sepsis due to Enterococcus faecalis UTI changed ceftriaxone to ampicillin 11/23- [can complete course with amoxicillin upon discharge] ZUNILDA due to postrenal obstruction resolved after Cruz placement question of bladder CA workup started at Rehab and Urology consult requested; will also send urine cytology eval hyperNa replete free water deficit vascular dementia on statin, mirtazapine 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 Quality Stroke Does the patient have a stroke diagnosis?: No VTE Prior VTE?: No VTE Risk Level:: Medical - moderate - high VTE Device Contraindication: N/A - Device Ordered VTE Drug Contraindication: Treatment Not Indicated
[2024-11-27] MEDS: Potassium Chloride Packet 20 MEQ PACKET 40 MEQ PO (09:30)
[2024-11-28 03:46] VITALS: RESP 16
[2024-11-28 07:01] LABS: Hematocrit 29.0 % (42.0-52.0); Hemoglobin 10.0 g/dl (14.0-18.0); Mean Corpuscular HGB Conc 34.5 g/dl (31.0-36.0); Mean Corpuscular Hemoglobin 31.9 pg (27.0-33.0); Mean Corpuscular Volume 92.7 fL (80.0-98.0); NRBC Abs Auto 0.000 X10*3/uL (0.0-0.012); NRBC Pct Auto 0.0 /100WBC (0.0-0.2); Platelet Count 129 X10*3/uL (160-400); Red Blood Count 3.13 X10*6/uL (4.60-5.80); White Blood Count 5.9 X10*3/uL (4.8-10.8)
[2024-11-28 07:36] VITALS: BP 96/51; PULSE 80; RESP 18; TEMP 36.7; O2SAT 95
[2024-11-28 07:36] LABS: Anion Gap 11 (12-20); Blood Urea Nitrogen 8 mg/dL (9-16); Calcium 7.4 mg/dL (8.4-10.2); Carbon Dioxide 22 mmol/L (22-29); Chloride 113 mmol/L (96-108); Creatinine Clr Calc Pharmacy 76.0; Estimated Glomerular Filt Rate > 60; Magnesium 1.8 mg/dL (1.6-2.6); Potassium 3.7 mmol/L (3.3-5.1); Sodium 142 mmol/L (135-145)
--- NOTE | 2024-11-28 08:54 | HO.PM.IMPN ---
Subjective Subjective Date of Service: 11/28/24 Interval History: non participatory Physical Exam Exam: Exam: Gen: confused, in NAD HEENT: sclera anicteric, moist mucus membranes Neck: supple Lungs: clear to auscultation bilaterally Heart: regular rate and rhythm, no murmurs Abd: soft, non-tender, non-distended Ext: no edema : Cruz draining clear urine Skin: warm/well-perfused Neuro: disoriented, moves all extremities Psych: restricted affect Vital Signs: Vital Signs: Last Vital Signs Temp 98.0 F 11/28/24 07:36 Pulse 80 11/28/24 07:36 Resp 18 11/28/24 07:36 BP 96/51 L 11/28/24 07:36 Pulse Ox 95 11/28/24 07:36 O2 Del Method Room Air 11/28/24 07:36 BMI result Body Mass Index 20.6 Objective Data Active Medications Atorvastatin Calcium (Atorvastatin Calcium 80 Mg Tablet) 80 mg PO DAILY COUNTS INCLUDE 234 BEDS AT THE [facility] Last Admin: 11/27/24 09:29 Dose: 80 mg Documented By: MATT Bisacodyl (Bisacodyl 10 Mg Supp.Rect) 10 mg [place] DAILY PRN PRN Reason: Constipation Calcium Carbonate (Calcium Carbonate 750 Mg Tab.Chew) 750 mg PO Q4H PRN PRN Reason: Heartburn Diazepam (Diazepam 10 Mg/2 Ml Cartridge) 5 mg IVPUSH Q8H PRN PRN Reason: Agitation Last Admin: 11/25/24 20:41 Dose: 5 mg Documented By: DIPTI Hydromorphone HCl (Hydromorphone Hcl 0.5 Mg/0.5 Ml Syringe) 0.5 mg IVPUSH Q4H PRN; Protocol PRN Reason: Pain, Severe (Pain Scale 7-10) Last Admin: 11/23/24 03:12 Dose: 0.5 mg Documented By: YARI Ampicillin Sodium 2 gm/ Sodium (Chloride) 100 mls @ 200 mls/hr IV Q12H COUNTS INCLUDE 234 BEDS AT THE [facility] Last Infusion: 11/27/24 23:06 Dose: Infused Documented By: SNEHAL Dextrose (D5w) 1,000 mls @ 80 mls/hr IVCONT .[id number] COUNTS INCLUDE 234 BEDS AT THE [facility] Last Infusion: 11/28/24 04:11 Dose: 80 mls/hr Documented By: SNEHAL Magnesium Hydroxide (Milk Of Magnesia 30 Ml Oral.Susp) 30 ml PO DAILY PRN PRN Reason: Constipation Melatonin (Melatonin 3 Mg Tablet) 6 mg PO BEDTIME PRN PRN Reason: Insomnia Last Admin: 11/22/24 22:06 Dose: 6 mg Documented By: YARI Midodrine (Midodrine Hcl 10 Mg Tablet) 10 mg PO TIDWM COUNTS INCLUDE 234 BEDS AT THE [facility] Last Admin: 11/27/24 16:32 Dose: 10 mg Documented By: MATT Mirtazapine (Mirtazapine 7.5 Mg Tablet) 7.5 mg PO BEDTIME COUNTS INCLUDE 234 BEDS AT THE [facility] Last Admin: 11/27/24 21:54 Dose: 7.5 mg Documented By: SNEHAL Olanzapine (Olanzapine 10 Mg Vial) 5 mg IM DAILY PRN PRN Reason: agitation Last Admin: 11/26/24 18:35 Dose: 5 mg Documented By: MATT Comments: Given early per Dr. Stephenson. Oxycodone HCl (Oxycodone Hcl Immed Release 5 Mg Tablet) 5 mg PO Q6H PRN PRN Reason: Pain, Moderate(Pain Scale 4-6) Quetiapine Fumarate (Quetiapine Fumarate 25 Mg Tablet) 25 mg PO DAILY@1700 COUNTS INCLUDE 234 BEDS AT THE [facility] Last Admin: 11/27/24 16:32 Dose: 25 mg Documented By: MATT Sodium Chloride (0.9 % Sodium Chloride Flush 3 Ml Syringe) 3 ml IVFLUSH QSHIFT COUNTS INCLUDE 234 BEDS AT THE [facility] Last Admin: 11/27/24 23:57 Dose: Not Given Documented By: SNEHAL Non-Admin Reason: IV Running Tamsulosin HCl (Tamsulosin Hcl 0.4 Mg Capsule) 0.4 mg PO DAILY COUNTS INCLUDE 234 BEDS AT THE [facility] Last Admin: 11/27/24 09:29 Dose: 0.4 mg Documented By: MATT Labs 11/28/24 06:35 11/28/24 06:35 Labs: Laboratory Results - last 24 hr 11/28/24 06:35 MCV 92.7 MCH 31.9 MCHC 34.5 RDW 13.2 Plt Count 129 L MPV 10.2 Absolute Nucleated RBC 0.000 Nucleated RBC % (auto) 0.0 Anion Gap 11 L Estim Creat Clear Calc 76.0 Estimated GFR > 60 Random Glucose 93 Calcium 7.4 L Magnesium 1.8 Microbiology Microbiology Results: Microbiology 11/22/24 08:44 Blood Culture - Final Blood - Venous No growth after 5 days. Assessment and Plan (1) Acute UTI: Status: Acute Plan 79M [facility] with PMH vascular dementia had unwitnessed fall and was found to have acute/chronic subdural hematoma and sepsis from UTI acute/chronic subdural hematoma stable on repeat CT, per Neurology no evacuation needed at this time in absence of mass effect; had subdural in same [place] [facility] [place] CT in 7-14d recommended sepsis due to Enterococcus faecalis UTI changed ceftriaxone to ampicillin 11/23- [can complete course with amoxicillin upon discharge] ZUNILDA due to postrenal obstruction resolved after Cruz placement question of bladder CA workup started at Rehab and Urology consult requested; will also send urine cytology eval hyperNa replete free water deficit vascular dementia on statin, mirtazapine 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 Quality Stroke Does the patient have a stroke diagnosis?: No VTE Prior VTE?: No VTE Risk Level:: Medical - moderate - high VTE Device Contraindication: N/A - Device Ordered VTE Drug Contraindication: Treatment Not Indicated
--- NOTE | 2024-11-28 10:47 | PM.UROCN ---
History of Present Illness Consult details Consult date: 11/28/24 Narrative: 79-year-old male with a h/o vascular dementia, BPH and multiple recent falls, h/o subdural hematoma. Urine c/s Micro-11/21/24-Enterococcus. Blood c/s 11/22/24- No growth. CTAP 11/25/24- Bladder stone, prostate enlarged. No renal calculi are identified. There is no hydronephrosis. No renal masses are identified. Review of Systems Review of Systems: Yes Unobtainable due to mental status [facility] Past Medical History Medical History Subdural hematoma BPH (benign prostatic hyperplasia) Vascular dementia Social History Social History Household Members: None Housing: [facility]dc Do you presently have visiting nurse or other home services: No (information obtained from pt's chart) Comment: 1:1 sitter Patient Tobacco Use Status: Never used Tobacco Smoked in Last 30 Days: No e-Cigarette/Vaping Use: Never Used Currently Displaying Signs/Symptoms of Drug Intoxication Withdrawal: No Advance Directives: Yes Advance Directives Information Provided: No Advance Directives on File: No Advance Directives Date on File: 11/21/24 Do you have a plan to hurt others: No Plan Recently lost weight without trying: Unsure Eating poorly because of decreased appetite: Yes Nutrition Risks: No Nutritional Risk Poor oral hygiene: No service: Yes Meds Allergies Allergy/AdvReac Type Severity Reaction Status Date / Time No Known Allergies Allergy Verified 11/21/24 11:51 Active Medications: Current Medications Atorvastatin Calcium (Atorvastatin Calcium 80 Mg Tablet) 80 mg PO DAILY [facility] Last Admin: 11/28/24 09:22 Dose: 80 mg Bisacodyl (Bisacodyl 10 Mg Supp.Rect) 10 mg [place] DAILY PRN PRN Reason: Constipation Calcium Carbonate (Calcium Carbonate 750 Mg Tab.Chew) 750 mg PO Q4H PRN PRN Reason: Heartburn Diazepam (Diazepam 10 Mg/2 Ml Cartridge) 5 mg IVPUSH Q8H PRN PRN Reason: Agitation Last Admin: 11/25/24 20:41 Dose: 5 mg Hydromorphone HCl (Hydromorphone Hcl 0.5 Mg/0.5 Ml Syringe) 0.5 mg IVPUSH Q4H PRN; Protocol PRN Reason: Pain, Severe (Pain Scale 7-10) Last Admin: 11/23/24 03:12 Dose: 0.5 mg Ampicillin Sodium 2 gm/ Sodium (Chloride) 100 mls @ 200 mls/hr IV Q12H [facility] Last Admin: 11/28/24 10:26 Dose: 200 mls/hr Dextrose (D5w) 1,000 mls @ 80 mls/hr IVCONT .[id number] [facility] Last Infusion: 11/28/24 10:29 Dose: 0 mls/hr Magnesium Hydroxide (Milk Of Magnesia 30 Ml Oral.Susp) 30 ml PO DAILY PRN PRN Reason: Constipation Melatonin (Melatonin 3 Mg Tablet) 6 mg PO BEDTIME PRN PRN Reason: Insomnia Last Admin: 11/22/24 22:06 Dose: 6 mg Midodrine (Midodrine Hcl 10 Mg Tablet) 10 mg PO TIDWM [facility] Last Admin: 11/28/24 09:22 Dose: 10 mg Mirtazapine (Mirtazapine 7.5 Mg Tablet) 7.5 mg PO BEDTIME [facility] Last Admin: 11/27/24 21:54 Dose: 7.5 mg Olanzapine (Olanzapine 10 Mg Vial) 5 mg IM DAILY PRN PRN Reason: agitation Last Admin: 11/26/24 18:35 Dose: 5 mg Oxycodone HCl (Oxycodone Hcl Immed Release 5 Mg Tablet) 5 mg PO Q6H PRN PRN Reason: Pain, Moderate(Pain Scale 4-6) Quetiapine Fumarate (Quetiapine Fumarate 25 Mg Tablet) 25 mg PO DAILY@1700 [facility] Last Admin: 11/27/24 16:32 Dose: 25 mg Sodium Chloride (0.9 % Sodium Chloride Flush 3 Ml Syringe) 3 ml IVFLUSH QSHIFT [facility] Last Admin: 11/28/24 09:23 Dose: Not Given Tamsulosin HCl (Tamsulosin Hcl 0.4 Mg Capsule) 0.4 mg PO DAILY [facility] Last Admin: 11/28/24 09:22 Dose: 0.4 mg Home Medications ?Medication ?Instructions ?Recorded ?Confirmed ?Last Taken ?Type acetaminophen 325 mg tablet 650 mg PO Q4H PRN Pain 11/21/24 11/21/24 Unknown History acetaminophen 325 mg tablet 650 mg PO Q6H PRN Fever 11/21/24 11/21/24 Unknown History atorvastatin 80 mg tablet 80 mg PO DAILY 11/21/24 11/21/24 Unknown History bisacodyl 10 mg rectal suppository 10 mg AK DAILY PRN Constipation 11/21/24 11/21/24 Unknown History hydrocortisone 1 % topical 1 appl topical BID 11/21/24 11/21/24 Unknown History ointment (Cortizone-10) ibuprofen 200 mg tablet 400 mg PO Q4H PRN Pain 11/21/24 11/21/24 Unknown History magnesium hydroxide 400 mg/5 mL 30 ml PO DAILY PRN Constipation 11/21/24 11/21/24 Unknown History oral suspension (Milk of Magnesia) melatonin 3 mg tablet 6 mg PO BEDTIME 11/21/24 11/21/24 Unknown History menthol 5 % topical patch (Icy Hot 1 patch topical DAILY 11/21/24 11/21/24 Unknown History (menthol)) midodrine 5 mg tablet 10 mg PO TID 11/21/24 11/21/24 11/21/24 History mirtazapine 15 mg tablet 7.5 mg PO BEDTIME 11/21/24 11/21/24 Unknown History pantoprazole 40 mg tablet,delayed 40 mg PO DAILY@0630 11/21/24 11/21/24 11/21/24 History release (Protonix) sennosides 8.6 mg tablet (Senna 8.6 mg PO Q12H PRN Constipation 11/21/24 11/21/24 Unknown History Lax) sodium phosphates 19 gram-7 118 ml AK DAILY PRN Constipation 11/21/24 11/21/24 Unknown History gram/118 mL enema (Fleet Enema) tamsulosin 0.4 mg capsule (Flomax) 0.4 mg PO DAILY 11/21/24 11/21/24 11/21/24 History Physical Exam Vital Signs: Vital Signs: Last Vital Signs Temp 98.0 F 11/28/24 07:36 Pulse 80 11/28/24 07:36 Resp 18 11/28/24 07:36 BP 96/51 L 11/28/24 07:36 Pulse Ox 95 11/28/24 07:36 O2 Del Method Room Air 11/28/24 07:36 BMI result Body Mass Index 20.6 : Other: kelly in place, yellow/lukas urine Results Labs 11/28/24 06:35 11/28/24 06:35 Labs: Abnormal lab results 11/28/24 Range/Units 06:35 RBC 3.13 L (4.60-5.80) X10*6/uL Hgb 10.0 L (14.0-18.0) g/dl Hct 29.0 L (42.0-52.0) % Plt Count 129 L (160-400) X10*3/uL Chloride 113 H (96-108) mmol/L Anion Gap 11 L (12-20) BUN 8 L (9-16) mg/dL Calcium 7.4 L (8.4-10.2) mg/dL Short CBC 11/28/24 Range/Units 06:35 WBC 5.9 (4.8-10.8) X10*3/uL Hgb 10.0 L (14.0-18.0) g/dl Hct 29.0 L (42.0-52.0) % Plt Count 129 L (160-400) X10*3/uL BMP 11/28/24 06:35 Sodium 142 Potassium 3.7 Chloride 113 H Carbon Dioxide 22 BUN 8 L Creatinine 0.75 Calcium 7.4 L Urine 11/21/24 Range/Units 14:42 Urine Color Yellow Urine Appearance Cloudy Urine pH 6.0 (5.0-9.0) Ur Specific [place] 1.010 (1.005-1.025) Urine Protein 100 (2+) H (Neg-Trace) mg/dL Urine Glucose (UA) Negative (Negative) mg/dL Imaging Additional studies: Date of Service: 11/25/24 EXAMINATION: CT ABDOMEN PELVIS WITH IV CONTRAST HISTORY: question of bladder CA COMPARISON: There are no prior studies for available comparison. TECHNIQUE: CT scan of the abdomen and pelvis was performed following administration of 85 mL Omnipaque 350 using standard departmental protocol. Coronal and sagittal reformatted images were generated and reviewed. Oral contrast material was not administered at the request of the referring physician. This CT exam was performed with one or more of the following dose reduction techniques: automated exposure control, adjustment of the mA and/or kV according to patient size, use of iterative reconstruction technique. DLP: 390 mGy-cm FINDINGS: LOWER CHEST: There is scarring at the right lung base. There is no pleural or pericardial effusion. CARDIOVASCULATURE: The heart is normal in size. There is no pericardial effusion. LIVER: The liver is normal in size and contour. No liver mass is identified. The hepatic and portal veins are patent. GALLBLADDER / BILE DUCTS: The gallbladder is unremarkable. There is no intra or extrahepatic biliary ductal dilatation. SPLEEN: The spleen is normal in size. No focal splenic lesion is identified. PANCREAS: The pancreas is unremarkable in appearance. ADRENAL GLANDS: Within normal limits. KIDNEYS/RETROPERITONEUM: No renal calculi are identified. There is no hydronephrosis. No renal masses are identified. LYMPH NODES: No abdominal or pelvic lymphadenopathy. VASCULATURE: The abdominal aorta demonstrates atherosclerotic calcification, but is normal in caliber. There is an intimal flap in the right external iliac artery indicative of a dissection. This does not limit flow. MESENTERY/PERITONEUM: No free fluid. No masses. There is no free intraperitoneal gas. STOMACH: The stomach is collapsed, limiting evaluation. SMALL BOWEL: The small bowel is normal in caliber. COLON: The colon is unremarkable. APPENDIX: The appendix is not seen, however no inflammatory changes are seen adjacent to the cecum. URINARY BLADDER/PELVIC ORGANS: There is a 1.5 cm bladder calculus to the right of midline. The urinary bladder is completely collapsed with a Kelly catheter limiting evaluation. The prostate is enlarged. BONES / SOFT TISSUES: There is degenerative disc disease of the spine. There is a moderate compression deformity of L3. IMPRESSION: 1. 1.5 cm bladder calculus. Evaluation of the urinary bladder is otherwise nondiagnostic as it is decompressed with a Kelly catheter. 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 Assessment and Plan (1) Acute UTI: Status: Acute (2) BPH (benign prostatic hyperplasia): Status: Acute (3) Bladder calculus: Status: Acute Plan Recommend flomax 0.4 mg daily, proscar 5 mg daily cont kelly. follow up as out patient Procedures Date of Service Date of Service: 11/28/24
[2024-11-28 12:00] VITALS: BP 90/55; PULSE 82; RESP 16; TEMP 36.5; O2SAT 97
--- NOTE | 2024-11-28 14:27 | MHC.SLORD ---
Speech Language Pathology Order Status: Pt not seen for dysphagia treatment today, TAR HEEL will followup to assess pt PO tolerance. RN reports no concerns with pt tolerance of current diet or meds in puree.
[2024-11-28] MEDS: 0.9 % Sodium Chloride Flush 3 ML SYRINGE IVFLUSH (15:15)
[2024-11-28 16:00] VITALS: BP 92/50; PULSE 95; RESP 18; TEMP 36.8; O2SAT 96
[2024-11-28 17:02] VITALS: BP 92/50
--- NOTE | 2024-11-28 17:26 | PC.NURSE ---
Addendum entered by Anne Botello RN 11/29/24 07:02: Late Entry: Seroquel given after 6pm. Pt more awake, impulsive and difficulty redirecting. Original Note: BP 90's/50's. Moslty sleeping but easily arousable. Woke up for over an hour in afternoon and ate lunch. Seroquel held due to patient drowsiness. Has been cooperative, calm throughout the day. Took all meds per order. Allowed AM care. Was OOB to chair 1 assist. Ambulated to BR x2 with walker 1 assist. Had visitors throughout the day.
[2024-11-28] MEDS: OLANZapine 10 MG VIAL 5 MG IM (19:41)
--- NOTE | 2024-11-28 19:46 | PC.NURSE ---
pt agitated, yelling and swearing at staff, wanting to get up but refusing for staff to help him, getting combative with staff, IM Zyprexa given, Dr. Jacinto at bedside, will continue to monitor.
[2024-11-28 19:58] VITALS: BP 92/59; PULSE 94; RESP 18; TEMP 36.8; O2SAT 98
[2024-11-29 03:22] VITALS: BP 96/54; PULSE 84; RESP 18; TEMP 37.2; O2SAT 94
[2024-11-29 06:55] LABS: Hematocrit 29.7 % (42.0-52.0); Hemoglobin 10.1 g/dl (14.0-18.0); Mean Corpuscular HGB Conc 34.0 g/dl (31.0-36.0); Mean Corpuscular Hemoglobin 31.7 pg (27.0-33.0); Mean Corpuscular Volume 93.1 fL (80.0-98.0); NRBC Abs Auto 0.000 X10*3/uL (0.0-0.012); NRBC Pct Auto 0.0 /100WBC (0.0-0.2); Platelet Count 154 X10*3/uL (160-400); Red Blood Count 3.19 X10*6/uL (4.60-5.80); White Blood Count 6.1 X10*3/uL (4.8-10.8)
[2024-11-29 07:10] LABS: Anion Gap 8 (12-20); Blood Urea Nitrogen 6 mg/dL (9-16); Calcium 7.4 mg/dL (8.4-10.2); Carbon Dioxide 24 mmol/L (22-29); Chloride 113 mmol/L (96-108); Creatinine Clr Calc Pharmacy 74.0; Estimated Glomerular Filt Rate > 60; Potassium 3.6 mmol/L (3.3-5.1); Sodium 141 mmol/L (135-145)
[2024-11-29 07:47] VITALS: PULSE 83; RESP 18; TEMP 36.8; O2SAT 99
[2024-11-29 09:34] VITALS: BP 103/60
--- NOTE | 2024-11-29 09:39 | P.PNIM_ITS ---
Subjective Subjective Date of Service: 11/29/24 Interval History: no complaints Physical Exam 2 Exam: Exam: Gen: confused, in NAD HEENT: sclera anicteric, moist mucus membranes Neck: supple Lungs: clear to auscultation bilaterally Heart: regular rate and rhythm, no murmurs Abd: soft, non-tender, non-distended Ext: no edema : Cruz draining clear urine Skin: warm/well-perfused Neuro: disoriented, moves all extremities Psych: restricted affect Vital Signs: Vital Signs: Last Vital Signs Temp 98.2 F 11/29/24 07:47 Pulse 83 11/29/24 07:47 Resp 18 11/29/24 07:47 BP 103/60 11/29/24 09:34 Pulse Ox 99 11/29/24 07:47 O2 Del Method Room Air 11/29/24 07:47 BMI result Body Mass Index 20.6 Objective Data Active Medications Atorvastatin Calcium (Atorvastatin Calcium 80 Mg Tablet) 80 mg PO DAILY [facility] Last Admin: 11/29/24 09:35 Dose: 80 mg Documented By: LISA Bisacodyl (Bisacodyl 10 Mg Supp.Rect) 10 mg NV DAILY PRN PRN Reason: Constipation Calcium Carbonate (Calcium Carbonate 750 Mg Tab.Chew) 750 mg PO Q4H PRN PRN Reason: Heartburn Diazepam (Diazepam 10 Mg/2 Ml Cartridge) 5 mg IVPUSH Q8H PRN PRN Reason: Agitation Last Admin: 11/25/24 20:41 Dose: 5 mg Documented By: DIPTI Finasteride (Finasteride 5 Mg Tablet) 5 mg PO DAILY [facility] Last Admin: 11/29/24 09:34 Dose: 5 mg Documented By: LISA Hydromorphone HCl (Hydromorphone Hcl 0.5 Mg/0.5 Ml Syringe) 0.5 mg IVPUSH Q4H PRN; Protocol PRN Reason: Pain, Severe (Pain Scale 7-10) Last Admin: 11/23/24 03:12 Dose: 0.5 mg Documented By: YARI Ampicillin Sodium 2 gm/ Sodium (Chloride) 100 mls @ 200 mls/hr IV Q12H [facility] Last Infusion: 11/28/24 22:27 Dose: Infused Documented By: SNEHAL Magnesium Hydroxide (Milk Of Magnesia 30 Ml Oral.Susp) 30 ml PO DAILY PRN PRN Reason: Constipation Melatonin (Melatonin 3 Mg Tablet) 6 mg PO BEDTIME PRN PRN Reason: Insomnia Last Admin: 11/22/24 22:06 Dose: 6 mg Documented By: YARI Midodrine (Midodrine Hcl 10 Mg Tablet) 10 mg PO TIDWM [facility] Last Admin: 11/29/24 09:34 Dose: 10 mg Documented By: LISA Mirtazapine (Mirtazapine 7.5 Mg Tablet) 7.5 mg PO BEDTIME [facility] Last Admin: 11/28/24 22:02 Dose: Not Given Documented By: SNEHAL Non-Admin Reason: Patient Refused Olanzapine (Olanzapine 10 Mg Vial) 5 mg IM DAILY PRN PRN Reason: agitation Last Admin: 11/28/24 19:41 Dose: 5 mg Documented By: PATRICIA Oxycodone HCl (Oxycodone Hcl Immed Release 5 Mg Tablet) 5 mg PO Q6H PRN PRN Reason: Pain, Moderate(Pain Scale 4-6) Quetiapine Fumarate (Quetiapine Fumarate 25 Mg Tablet) 25 mg PO DAILY@1700 [facility] Last Admin: 11/28/24 18:17 Dose: 25 mg Documented By: LISA Sodium Chloride (0.9 % Sodium Chloride Flush 3 Ml Syringe) 3 ml IVFLUSH QSHIFT [facility] Last Admin: 11/29/24 09:35 Dose: Not Given Documented By: LISA Non-Admin Reason: IV Running Tamsulosin HCl (Tamsulosin Hcl 0.4 Mg Capsule) 0.4 mg PO DAILY [facility] Last Admin: 11/29/24 09:35 Dose: 0.4 mg Documented By: LISA Labs 11/29/24 06:03 11/29/24 06:03 Labs: Laboratory Results - last 24 hr 11/29/24 06:03 MCV 93.1 MCH 31.7 MCHC 34.0 RDW 13.0 Plt Count 154 L MPV 10.1 Absolute Nucleated RBC 0.000 Nucleated RBC % (auto) 0.0 Anion Gap 8 L Estim Creat Clear Calc 74.0 Estimated GFR > 60 Random Glucose 94 Calcium 7.4 L Assessment and Plan (1) Acute UTI: Status: Acute Plan 79M [facility] with PMH vascular dementia had unwitnessed fall and was found to have acute/chronic subdural hematoma and sepsis from UTI acute/chronic subdural hematoma stable on repeat CT, per Neurology no evacuation needed at this time in absence of mass effect; had subdural in same area [place] [facility] will repeat cth today sepsis due to Enterococcus faecalis UTI changed ceftriaxone to ampicillin 11/23- [can complete course with amoxicillin upon discharge] ZUNILDA due to postrenal obstruction resolved after Cruz placement question of bladder CA workup started at Rehab and Urology consult requested; will also send urine cytology appreciated continue flomax, added proscar hyperNa resolved vascular dementia on statin, mirtazapine 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 Quality Stroke Does the patient have a stroke diagnosis?: No VTE Prior VTE?: No VTE Risk Level:: Medical - moderate - high VTE Device Contraindication: N/A - Device Ordered VTE Drug Contraindication: Treatment Not Indicated
--- NOTE | 2024-11-29 12:22 | MHC.CM.PN ---
Addendum entered by Dulce Mullen 11/29/24 13:21: This CM received a phone call from pts Yesica, she states she has called Alexandr Alicia's office to see where she can send him. This CM asked Yesica where she is at with the [employer] application, she states she has done the application with her sample book maker Hayley Quintero in [place] ([phone]). This CM called and left a message with Hayley Quintero to inquire about the MH application, awaiting return call. Addendum entered by Dulce Mullen 11/29/24 13:16: This CM called [facility]ens[facility] for the 4th time, was able to reach her. Per Pattie, they are very concerned about the pts behaviors, and are requesting nursing notes to review. Per their request nursing notes sent to them, they will review and let us know if they can accept pt back. Original Note: EMR reviewed and per MD rounds, pt is medically cleared for discharge. Awaiting [facility] bed offer, referral expanded in [facility]. Unable to reach [facility] x 3 attempts. This CM met with pts at her request to provide an update.
--- NOTE | 2024-11-29 13:42 | P.DS_ITS ---
DS: Providers Provider Date of Service: 11/29/24 Date of admission: 11/23/24 14:27 Date of discharge: 11/29/24 Primary care physician: Miquel Lo DO Consults: 11/21/24 21:00 Consult to Neurology Routine Consulting Provider: [facility] Reason for consultation: subdural hematoma Has provider been notified: No 11/21/24 21:01 Consult to Psychiatry Routine Consulting Provider: [facility] Psych Covering Reason for consultation: Aggressive, delirium, looking for inpatient [facility] psych on d/c per Has provider been notified: No 11/25/24 12:04 Consult to Urology Routine Consulting Provider: [facility] Urology Services Reason for consultation: recurrent UTIs, concern for bladder CA, imaging pending DS: Diagnosis Discharge Diagnosis (1) Acute UTI: Status: Acute DS: Summary Hospital Course Hospital Course: from initial hpi: 79-year-old male with a past medical history significant for vascular dementia, BPH and multiple recent falls, who presented to the ED after an unwitnessed fall earlier today. The patient has had multiple recent falls lately, head strike and loss of consciousness unknown. The patient was complaining of left shoulder pain on arrival however is no longer able to give any history, he is currently hallucinating. His is bedside and they refused transfer to a facility for Neurosurgery as he had a subdural hematoma recently and he does not wish to have another surgery. He has been increasingly aggressive at the nursing facility that he resides at and his reports that they have been trying to get him to a nursing facility specifically for patient with dementia and aggression. She reports that he has not been eating or drinking much. The patient is unable to provide any history at this time. hospital course: Patient was admitted for acute on chronic subdural hematoma. CT head showed stability on admission and on discharge. For sepsis due to Enterococcus faecalis urinary tract infection was initially treated with ceftriaxone after cultures were received transitioned to ampicillin and completed treatment. For acute kidney injury due to postrenal obstruction Kelly catheter was inserted and renal function returned to normal. Was seen by Urology who recommended keeping Kelly in place and continuing tamsulosin and adding Proscar will follow up with Urology as outpatient. Course complicated by hypernatremia which resolved with IV hypotonic fluids. For vascular dementia was continued on statin and mirtazapine. For dysphagia was seen by speech who recommended ndd2 solids and thin liquids. For hypotension is on midodrine. For BPH was continued on Flomax and Proscar. For GERD on PPI Time Attestation Discharge Coordination Time (in mins): 36 Quality: Safe Use of Opioids Does Pt have an Active Cancer Diagnosis on the Problem List?: No Quality: Stroke Does the patient have a stroke diagnosis?: No Physical Exam Exam: Exam: Gen: confused, in NAD HEENT: sclera anicteric, moist mucus membranes Neck: supple Lungs: clear to auscultation bilaterally Heart: regular rate and rhythm, no murmurs Abd: soft, non-tender, non-distended Ext: no edema : Kelly draining clear urine Skin: warm/well-perfused Neuro: disoriented, moves all extremities Psych: restricted affect Vital Signs: Vital Signs: Last Vital Signs Temp 98.2 F 11/29/24 07:47 Pulse 83 11/29/24 07:47 Resp 18 11/29/24 07:47 BP 103/60 11/29/24 09:34 Pulse Ox 99 11/29/24 07:47 O2 Del Method Room Air 11/29/24 07:47 BMI result Body Mass Index 20.6 DS: Data Data Completed and Pending Labs on day of discharge: Laboratory Results - last 24 hr 11/29/24 06:03 WBC 6.1 RBC 3.19 L Hgb 10.1 L Hct 29.7 L MCV 93.1 MCH 31.7 MCHC 34.0 RDW 13.0 Plt Count 154 L MPV 10.1 Absolute Nucleated RBC 0.000 Nucleated RBC % (auto) 0.0 Sodium 141 Potassium 3.6 Chloride 113 H Carbon Dioxide 24 Anion Gap 8 L BUN 6 L Creatinine 0.77 Estim Creat Clear Calc 74.0 Estimated GFR > 60 Random Glucose 94 Calcium 7.4 L Discharge Plan Discharge Anticipated Discharge Date/Time: 11/29/24 13:39 Patient Disposition: Xfer SNF Discharge Diagnosis: uti, hypernatremia, fall, SDH, urinary retnetion Referrals: [facility] [Outside] - 1 Week Chuckie Cunningham MD [Physician, Urology] - 1 Week Miquel Lo DO [Primary Care Provider, Internal Medicine] Discharge Medications: New finasteride 5 mg Tablet 5 mg PO DAILY Qty: 0 0RF Continued atorvastatin 80 mg Tablet 80 mg PO DAILY sennosides [Senna Lax] 8.6 mg Tablet 8.6 mg PO Q12H PRN (Reason: Constipation) acetaminophen 325 mg Tablet 650 mg PO Q4H MDD 3gm PRN (Reason: Pain) acetaminophen 325 mg Tablet 650 mg PO Q6H MDD 3gm PRN (Reason: Fever) hydrocortisone [Cortizone-10] 1 % Ointment 1 appl TOPICAL BID Rx Instructions: only for 10 days, last day should be 11/22 midodrine 5 mg Tablet 10 mg PO TID Rx Instructions: do not give last dose of day after 6PM or within 4 hrs of bedtime melatonin 3 mg Tablet 6 mg PO BEDTIME magnesium hydroxide [Milk of Magnesia] 400 mg/5 mL Suspension 30 ml PO DAILY PRN (Reason: Constipation) tamsulosin [Flomax] 0.4 mg Capsule 0.4 mg PO DAILY bisacodyl 10 mg Suppository 10 mg [place] DAILY PRN (Reason: Constipation) pantoprazole [Protonix] 40 mg Tablet,Delayed Release (Dr/Ec) 40 mg PO DAILY@0630 Fleet Enema 19-7 gram/118 mL Enema 118 ml FL DAILY PRN (Reason: Constipation) Rx Instructions: If no BM in 8 hours after taking Bisacodyl suppository mirtazapine 15 mg Tablet 7.5 mg PO BEDTIME menthol [Icy Hot (menthol)] 5 % Adhesive Patch,Medicated 1 patch TOPICAL DAILY Discontinued ibuprofen 200 mg Tablet 400 mg PO Q4H PRN (Reason: Pain) Discharge Orders: Discharge Order (Routine); Ordered 11/29/24 Ordered By: Maykel Stephenson Diet: ndd2, thins Activity on Discharge: As tolerated Stand Alone Forms: Patient Portal Discharge page Print Language: Kazakh Care Plan Goals: recovery Health Concerns: uti, hypernatremia, fall, SDH, urinary retnetion Plan of Treatment: encourage po intake, PT, keep kelly, follow up urology Assessment: see above Patient Instructions: Fall Prevention for Older Adults (ED), Hematoma (ED) Discharge Date/Time: 11/29/24 16:36
--- NOTE | 2024-11-29 13:57 | MHC.CM.PN ---
STR bed offer received from [facility], pt will transport there via BLS/Len. Second IMM given 11/29. Pts Yesica was updated and in agreement with discharge plan.
[2024-11-29 15:37] VITALS: BP 96/57; PULSE 89; RESP 14; TEMP 37.2; O2SAT 99
== END 2024-11-29 16:36 | disposition skilled nursing facility (03) | DRG 871 ==
LOC: HO.ED 17:54 → HO.EDOVER 18:30 → HO.IMC 20:58 → HO.S3 11-24 08:52
PROVIDERS: Family Medicine; Physician Assistant; Admitting Provider Nurse Practitioner Acute Care; Emergency Provider Emergency Medicine; PCP Family Medicine; Visit Provider Internal Medicine
DX: A41.9 Sepsis, unspecified organism (principal); S06.5XAA Traumatic subdural hemorrhage with loss of consciousness status unknown, initial encounter; F01.511 Vascular dementia, unspecified severity, with agitation; N17.9 Acute kidney failure, unspecified; E87.0 Hyperosmolality and hypernatremia; N39.0 Urinary tract infection, site not specified; N40.1 Benign prostatic hyperplasia with lower urinary tract symptoms; W19.XXXA Unspecified fall, initial encounter; K21.9 Gastro-esophageal reflux disease without esophagitis; Z66 Do not resuscitate; N21.0 Calculus in bladder; C67.9 Malignant neoplasm of bladder, unspecified; B95.2 Enterococcus as the cause of diseases classified elsewhere; I95.9 Hypotension, unspecified; R33.8 Other retention of urine; R29.6 Repeated falls; M88.82 Osteitis deformans of upper arm; M75.32 Calcific tendinitis of left shoulder; Z87.440 Personal history of urinary (tract) infections; Z91.81 History of falling; Z79.899 Other long term (current) drug therapy
CPT/HCPCS: 36415; 70450; 72125; 73030; 73060; 74177; 76775; 80048; 81001; 82550; 82570; 83605; 83735; 84300; 85014; 85018; 85025; 85027; 85610; 87040; 87086; 87088; 87186; 88112; 92526; 92610; 93005; 97162; 99222; 99285; J0131; J0290; J0696; J1171; J1200; J2003; J2359; J2470; J3360; J3475; J7120; Q9967

== ENCOUNTER → 2024-11-21 11:54 | Outpatient (BNV) | payer MEDICARE, SELFPAY | PROVIDERS: Emergency Provider Emergency Medicine; PCP Family Medicine; Visit Provider Radiology Diagnostic Radiology | DX: M54.2 Cervicalgia (principal); S06.5X0A Traumatic subdural hemorrhage without loss of consciousness, initial encounter; Z04.3 Encounter for examination and observation following other accident; W19.XXXA Unspecified fall, initial encounter | CPT/HCPCS: 70450; 72125; 73030; 73060 ==

== ENCOUNTER 2024-11-21 18:22 | Outpatient (BNV) | payer MEDICARE, OTHER, SELFPAY | END 2024-11-23 12:45 | PROVIDERS: Admitting Provider Nurse Practitioner Acute Care; Emergency Provider Emergency Medicine; PCP Family Medicine; Visit Provider Radiology Diagnostic Radiology | DX: N39.0 Urinary tract infection, site not specified (principal) | CPT/HCPCS: 76775 ==

== ENCOUNTER 2024-11-21 18:22 | Outpatient (BNV) | payer MEDICARE, SELFPAY | END 2024-11-22 | PROVIDERS: Admitting Provider Nurse Practitioner Acute Care; Emergency Provider Emergency Medicine; PCP Family Medicine; Visit Provider Radiology Diagnostic Radiology | DX: S06.5X0D Traumatic subdural hemorrhage without loss of consciousness, subsequent encounter (principal) | CPT/HCPCS: 70450 ==

== ENCOUNTER → 2024-11-21 18:22 | Outpatient (BNV) | payer MEDICARE, OTHER, SELFPAY | PROVIDERS: Admitting Provider Nurse Practitioner Acute Care; Emergency Provider Emergency Medicine; PCP Family Medicine; Visit Provider Nurse Practitioner Acute Care | DX: I62.01 Nontraumatic acute subdural hemorrhage (principal); I62.03 Nontraumatic chronic subdural hemorrhage; A41.9 Sepsis, unspecified organism; N39.0 Urinary tract infection, site not specified; W19.XXXA Unspecified fall, initial encounter | CPT/HCPCS: 99223; 99232 ==

== ENCOUNTER → 2024-11-21 18:22 | Outpatient (BNV) | payer MEDICARE, OTHER, SELFPAY | PROVIDERS: Admitting Provider Nurse Practitioner Acute Care; Emergency Provider Emergency Medicine; PCP Family Medicine; Visit Provider Psychiatry & Neurology Neurology | DX: I62.01 Nontraumatic acute subdural hemorrhage (principal); N39.0 Urinary tract infection, site not specified; F01.50 Vascular dementia, unspecified severity, without behavioral disturbance, psychotic disturbance, mood disturbance, and anxiety | CPT/HCPCS: 99222 ==

== ENCOUNTER 2024-11-23 14:27 | Outpatient (BNV) | payer MEDICARE, OTHER, SELFPAY | END 2024-11-29 09:57 | PROVIDERS: Admitting Provider Nurse Practitioner Acute Care; Emergency Provider Emergency Medicine; PCP Family Medicine; Visit Provider Radiology Diagnostic Radiology | DX: S09.90XA Unspecified injury of head, initial encounter (principal) | CPT/HCPCS: 70450 ==

== ENCOUNTER 2024-11-23 14:27 | Outpatient (BNV) | payer MEDICARE, OTHER, SELFPAY | END 2024-11-26 10:40 | PROVIDERS: Admitting Provider Nurse Practitioner Acute Care; Emergency Provider Emergency Medicine; PCP Family Medicine; Visit Provider Internal Medicine | DX: R00.0 Tachycardia, unspecified (principal) | CPT/HCPCS: 93010 ==

== ENCOUNTER 2024-11-23 14:27 | Outpatient (BNV) | payer MEDICARE, OTHER, SELFPAY | END 2024-11-25 14:58 | PROVIDERS: Admitting Provider Nurse Practitioner Acute Care; Emergency Provider Emergency Medicine; PCP Family Medicine; Visit Provider Radiology Diagnostic Radiology | DX: N21.0 Calculus in bladder (principal); I77.72 Dissection of iliac artery | CPT/HCPCS: 74177 ==

== ENCOUNTER → 2024-11-23 14:27 | Outpatient (BNV) | payer MEDICARE, OTHER, SELFPAY | PROVIDERS: Admitting Provider Nurse Practitioner Acute Care; Emergency Provider Emergency Medicine; PCP Family Medicine; Visit Provider Urology | DX: N39.0 Urinary tract infection, site not specified (principal); N40.0 Benign prostatic hyperplasia without lower urinary tract symptoms; N21.0 Calculus in bladder | CPT/HCPCS: 99222 ==

== ENCOUNTER 2024-11-30 02:10 | Inpatient (IN) | payer MEDICARE, OTHER, SELFPAY ==
--- OUTSIDE RECORDS SUMMARY | 2024-10-05 09:38 | XMS_ITS | Continuity of Care Document ---
Author Name [facility] Organization [facility] Care Team Providers Care Herbicide Service Sales Representative Name Role Phone [facility] Unavailable Unavailable Encounters Combined list of: 1) Encounters from Department of Veterans Affairs facilities going backup to the last 18 months, not all [facility] inpatient encounters are included; 2) Encounters from the Department of Defense facilities going backup to 280 months. Location Location Details Encounter Type Encounter Number Reason For Visit Attending Provider ADM Date DC Date Status Disposition Source [facility] Outpatient Encounter [id number] 10/05 [place] [facility]
[2024-11-30] VITALS (14 sets, daily range): BP systolic 86–138; BP diastolic 47–95; PULSE 78–111; RESP 15–22; TEMP 36.5–37.1; O2SAT 95–99; BMI 21.3
--- NOTE | 2024-11-30 | ECG_ITS ---
Test Reason : FALL Blood Pressure : */* mmHG Vent. Rate : 100 BPM Atrial Rate : 100 BPM P-R Int : 140 ms QRS Dur : 80 ms QT Int : 370 ms P-R-T Axes : -17 28 34 degrees QTcB Int : 477 ms Normal sinus rhythm Low voltage QRS Borderline ECG When compared with ECG of 26-Nov-2024 10:40, Previous ECG has undetermined rhythm, needs review Referred By: Generic ED Physician Electronically Signed By: Hao Yuen
--- NOTE | ~2024-11-30 | CT_ITS ---
CLINICAL HISTORY: trauma CT head without contrast Comparison: CT/REG/SR - CT HEAD WITHOUT IV CONTRAST - 11/29/24 09:57 EDT Findings: Right frontoparietal and temporal subdural hematoma measures up to 7 mm in depth, unchanged. There is minimal 2 mm leftward midline shift, unchanged. No new hemorrhage is identified. Mild bilateral periventricular hypodensities are present. There is no hydrocephalus. The visualized paranasal sinuses and mastoid air cells are normal. There has been prior bilateral cataract surgery. Metallic densities are again seen along the inner table of bilateral temporal bones. No acute fracture is identified. IMPRESSION: 1. Right frontoparietal and temporal subdural hematoma measuring up to 7 mm in depth, unchanged. There is minimal 2 mm leftward midline shift, unchanged. This document has been electronically signed by: Rasheeda Caro on 11/30/2024 07:35:41
--- NOTE | ~2024-11-30 | CT_ITS ---
CLINICAL HISTORY: trauma CT cervical spine without contrast Comparison: CT/IN/SR - CT CERVICAL SPINE WITHOUT IV CONTRAST - 11/21/24 12:05 EDT Findings: Mild multilevel marginal osteophyte formation is present. Vacuum disc phenomenon is seen at C5/6. Multilevel facet arthropathy is also noted. There is mild loss of anterior vertebral body height at T2, similar to prior exam. Alignment is within normal limits. There is no canal stenosis. Partially visualized right distal clavicular fracture is present. The thyroid gland appears normal. The lung apices are clear. IMPRESSION: 1. No acute osseous abnormality is identified in the cervical spine. 2. Age-indeterminate mild T2 compression fracture, similar to exam of 11/21/24. 3. Partially visualized right distal clavicular fracture. This document has been electronically signed by: Rasheeda Caro on 11/30/2024 07:26:18
--- NOTE | ~2024-11-30 | CT_ITS ---
CLINICAL HISTORY: Head trauma CT head without contrast Comparison: CT/AR/SR - CT HEAD WITHOUT IV CONTRAST - 12/06/24 10:46 EDT Findings: There is some high attenuation material within a vessel in the left middle cranial fossa, likely embolization material. There is also a metallic clip or coil in the region of the right middle cranial fossa. There is a right frontal parietal subdural hematoma measuring up to 6 mm in thickness, unchanged from prior. No new areas of intracranial hemorrhage. Moderate cerebral atrophy and compensatory ventriculomegaly. Low attenuation in the periventricular white matter consistent with chronic small-vessel ischemic gliosis. No shift of the midline structures. There is no sinus or mastoid fluid. The orbits are within normal limits. No skull fracture. IMPRESSION: 1. No acute intracranial findings. 2. Unchanged right frontoparietal subdural hematoma. This document has been electronically signed by: Yoel Meeks MD on 12/30/2024 02:28:41
--- NOTE | ~2024-11-30 | CT_ITS ---
CLINICAL HISTORY: Fall, head trauma CT cervical spine without contrast Comparison: CT/SR - CT CERVICAL SPINE WO IV CON - 11/30/24 05:45 EDT Findings: Normal vertebral body alignment. Mild multilevel degenerative change. No acute fractures or dislocations. No acute findings on limited view of the intracranial contents. Soft tissues of the neck are normal. No consolidation or effusion at the lung apices. IMPRESSION: No acute findings. This document has been electronically signed by: Yoel Meeks MD on 12/30/2024 02:22:57
--- NOTE | ~2024-11-30 | XR_ITS ---
EXAMINATION: XR HUMERUS, LEFT CLINICAL INFORMATION: Fall and pain COMPARISON: November 21, 2024. TECHNIQUE: AP and lateral views of the left humerus. FINDINGS: No acute cortical disruption. Bowing of the mid diaphysis. No lytic or blastic lesions. XR/XR humerus LT IMPRESSION: No acute fracture, left humerus. No change Electronically signed by: Raghav Porras MD 12/07/2024 02:14 PM EDT
--- NOTE | ~2024-11-30 | CT_ITS ---
CLINICAL HISTORY: fall CT abdomen and pelvis without contrast Comparison: CT/SR - CT ABDOMEN PELVIS WITH IV CONTRAST - 11/25/24 14:58 EDT Findings: LIMITED CHEST: Scarring and bronchiectasis at the lung bases. LIVER: No focal liver lesion. BILIARY: No gallbladder wall thickening, radiopaque stone, or ductal dilatation. PANCREAS: No mass or ductal dilatation. SPLEEN: No splenomegaly. KIDNEYS: No hydronephrosis or radiopaque stone. ADRENALS: No nodule. VASCULAR: No aneurysm. RETROPERITONEUM: No lymphadenopathy or mass. BOWEL/MESENTERY: No evidence of obstruction. No free fluid or air. Moderate colonic stool burden. ABDOMINAL WALL: No mass or significant abnormality. URINARY BLADDER: Dependent bladder stone measuring 1.8 cm. Circumferential bladder wall thickening. PELVIC NODES: No pelvic lymphadenopathy. PELVIC ORGANS: Prostatomegaly. BONES: Multiple remote appearing left posterior rib fractures. Multiple remote appearing right-sided transverse process fractures. Possible nondisplaced left transverse process fracture of the L2 vertebral body. OTHER: Negative. IMPRESSION: Possible nondisplaced L2 left transverse process fracture, correlate with point tenderness. Prostatomegaly with circumferential thickening of the bladder, correlate with urinalysis for cystitis. This document has been electronically signed by: Hilda Hernández MD on 01/06/2025 21:36:50
--- NOTE | ~2024-11-30 | CT_ITS ---
CLINICAL HISTORY: fall CT head without contrast Comparison: CT/SR - CT HEAD/BRAIN WO IV CON - 12/30/24 00:28 EDT Findings: BRAIN: No acute infarct, hemorrhage, or mass effect. Small volume right frontal subdural hematoma similar to 12/30/2024. Unchanged metallic streak artifact of the bilateral middle cranial fossa. Scattered periventricular/deep white matter hypodensities, nonspecific, however may represent chronic microvascular ischemic disease. CSF SPACES: No hydrocephalus or effacement of basal cisterns. SKULL: No calvarial fracture. SINUSES: Mild paranasal sinus mucosal thickening. ORBITS: Bilateral lens replacements. OTHER: Negative. IMPRESSION: 1. No acute intracranial findings. Similar small volume right frontal subdural hematoma. This document has been electronically signed by: Hilda Hernández MD on 01/06/2025 21:37:11
--- NOTE | ~2024-11-30 | CT_ITS ---
EXAMINATION: CT HEAD WITHOUT CONTRAST CLINICAL INFORMATION: Head trauma, head struck a wall COMPARISON: November 30, 2024 TECHNIQUE: Contiguous axial imaging was performed from the skull base to vertex without intravenous administration of contrast. This CT examination was performed using dose optimization techniques as appropriate, variously including the following: *Automated exposure control *Adjustment of mA and/or kV according to patient size (this includes techniques or standardized protocols for targeted exams where dose is matched to indication/reason for exam; i.e. extremities or head) *Use of iterative reconstruction technique DLP: 835 mGY*cm FINDINGS: There is no acute ischemic change. Periventricular white matter hypodensities are again noted. Again seen is a right subdural hematoma extending across the frontal and temporal regions inferiorly, the subdural hematoma shows increasing density, and superiorly it demonstrates decreasing density. It measures up to 6 mm thick which is very slightly decreased from the prior where it measured 7 mm. No new intracranial hemorrhage is identified. There is continued mild mass-effect or midline shift. Basal cisterns and ventricles are within normal limits for age/cerebral volume. Orbits are symmetrical and unremarkable. Paranasal sinuses and mastoid air cells are pneumatized. There are no bony abnormalities. CT/CT head/brain wo IV con IMPRESSION: Continued evolution of a right frontoparietal subdural hematoma measuring up to 6 mm in thickness with mild mass effect. No intracranial hemorrhage or other acute intracranial abnormality. Electronically signed by: Miguel Ness MD 12/06/2024 11:23 AM EDT
--- NOTE | ~2024-11-30 | XR_ITS ---
EXAMINATION: XR ELBOW 3 VIEWS LEFT HISTORY: fell COMPARISON: There are no prior studies available for comparison. FINDINGS: Four views of the left elbow are submitted. Osseous mineralization is normal. There is no fracture or dislocation. The joint spaces are preserved. The soft tissues are unremarkable. There is no joint effusion. XR/XR elbow LT min 3V IMPRESSION: No evidence of fracture of the left elbow. Electronically signed by: Blayne Avila MD 12/07/2024 09:44 AM EDT
--- NOTE | ~2024-11-30 | CT_ITS ---
CLINICAL HISTORY: fall CT cervical spine without contrast Comparison: CT/SR - CT CERVICAL SPINE WO IV CON - 12/30/24 00:28 EDT Findings: Vertebral alignment is within normal limits. Mild multilevel degenerative endplate changes of the cervical spine. No acute fractures or dislocations. No acute findings on limited view of the intracranial contents. No cervical fluid collections or masses. No consolidation or effusion at the lung apices. IMPRESSION: No acute findings. This document has been electronically signed by: Hilda Hernández MD on 01/06/2025 21:34:18
--- NOTE | ~2024-11-30 | XR_ITS ---
CLINICAL HISTORY: multiple falls, pain >1 month 3 view left shoulder Comparison: CR/SR - XR SHOULDER 2 OR MORE VIEWS LEFT - 11/21/2024 12:45 PM EDT Findings: No fractures or dislocations. Glenohumeral and acromioclavicular osteoarthritis. No erosions. No radiopaque foreign body. IMPRESSION: 1. No acute findings This document has been electronically signed by: Aj Strickland MD on 12/01/2024 22:05:17
--- NOTE | ~2024-11-30 | XR_ITS ---
EXAMINATION: XR CLAVICLE, RIGHT CLINICAL INFORMATION: Possible right clavicle fracture COMPARISON: None available. TECHNIQUE: AP views of the right clavicle. FINDINGS: There is a well-corticated fracture at the distal clavicle resulting in 3 cm overlapping of the fragments with the distal fragments in the inferior position with respect to the proximal component of the clavicle. Degenerative changes in the acromioclavicular joint and glenohumeral joint as well as the greater tuberosity of the humerus with focal calcification at the right supraspinatus tendon insertion. There is a pulmonary reticular pattern in the right upper hemithorax. XR/XR clavicle RT IMPRESSION: Inferiorly displaced fracture distal right clavicle, probable old. Degenerative changes, right shoulder. Consider calcific tendinosis/tendinopathy, supraspinatus. Electronically signed by: Raghav Porras MD 11/30/2024 09:28 AM EDT
--- NOTE | ~2024-11-30 | XR_ITS ---
EXAMINATION: XR ELBOW 3 VIEWS RIGHT HISTORY: fall, r elbow pain COMPARISON: There are no prior studies available for comparison. FINDINGS: Three views of the right elbow are submitted. Osseous mineralization is normal. There is no fracture or dislocation. The joint spaces are preserved. The soft tissues are unremarkable. There is no joint effusion. XR/XR elbow RT min 3V IMPRESSION: No evidence of fracture of the right elbow. Electronically signed by: Blayne Avila MD 12/07/2024 09:43 AM EDT
[2024-11-30 02:57] LABS: MANUAL DIFF FLAG NO
[2024-11-30 02:58] LABS: Hematocrit 34.5 % (42.0-52.0); Hemoglobin 11.7 g/dl (14.0-18.0); Imm Gran Abs Auto 0.03 X10*3/uL (0.00-0.03); Imm Gran Pct Auto 0.4 % (0.0-0.4); Lymphocytes Absolute Auto 1.4 X10*3/uL (1.2-4.9); Mean Corpuscular HGB Conc 33.9 g/dl (31.0-36.0); Mean Corpuscular Hemoglobin 32.0 pg (27.0-33.0); Mean Corpuscular Volume 94.3 fL (80.0-98.0); NRBC Abs Auto 0.000 X10*3/uL (0.0-0.012); NRBC Pct Auto 0.0 /100WBC (0.0-0.2); Platelet Count 182 X10*3/uL (160-400); Red Blood Count 3.66 X10*6/uL (4.60-5.80); White Blood Count 7.1 X10*3/uL (4.8-10.8)
[2024-11-30 03:22] LABS: Alanine Aminotransferase 38 U/L (0-40); Albumin Level 2.6 g/dL (3.5-5.0); Alkaline Phosphatase 92 U/L (39-117); Anion Gap 13 (12-20); Aspartate Amino Transferase 52 U/L (5-37); Blood Urea Nitrogen 6 mg/dL (9-16); Calcium 7.9 mg/dL (8.4-10.2); Carbon Dioxide 24 mmol/L (22-29); Chloride 112 mmol/L (96-108); Creatinine Clr Calc Pharmacy 57.7; Estimated Glomerular Filt Rate > 60; Potassium 4.7 mmol/L (3.3-5.1); Sodium 144 mmol/L (135-145); Total Protein 6.4 g/dL (6.5-8.0)
[2024-11-30 03:23] LABS: Troponin-I High Sensitivity 14.0 ng/L (<3.5-35.0)
--- NOTE | 2024-11-30 04:03 | PC.NURSE ---
at this time the husbandry technician informed this RN that the pt had slid down the stretcher w/ his feet dangling off the edge, this is the second time the pt was witnessed attempting to get out of bed w/o assistance, pt moved from room ED2 to ED22 closer to the nurse's station for safety purposes
--- NOTE | 2024-11-30 05:00 | ED.GENADULT ---
HPI - General Adult General Chief complaint: Fall Stated complaint: Fall Time Seen by Provider: 11/30/24 04:03 Source: EMS Limitations: other (Dementia) History of Present Illness ED Provider: Chrystal Kelly PA-C HPI narrative: 79-year-old male with a history of dementia presents from [facility] after unwitnessed fall. The patient has seemed agitated overnight, he kept pulling at his Kelly catheter. Related Data Home Medications ?Medication ?Instructions ?Recorded ?Confirmed acetaminophen 325 mg tablet 650 mg PO Q4H PRN Pain 11/21/24 11/30/24 acetaminophen 325 mg tablet 650 mg PO Q6H PRN Fever 11/21/24 11/30/24 atorvastatin 80 mg tablet 80 mg PO DAILY 11/21/24 11/30/24 bisacodyl 10 mg rectal suppository 10 mg NM DAILY PRN Constipation 11/21/24 11/30/24 hydrocortisone 1 % topical 1 appl topical BID 11/21/24 11/30/24 ointment (Cortizone-10) magnesium hydroxide 400 mg/5 mL 30 ml PO DAILY PRN Constipation 11/21/24 11/30/24 oral suspension (Milk of Magnesia) melatonin 3 mg tablet 6 mg PO BEDTIME 11/21/24 11/30/24 menthol 5 % topical patch (Icy Hot 1 patch topical DAILY 11/21/24 11/30/24 (menthol)) midodrine 5 mg tablet 10 mg PO TID 11/21/24 11/30/24 mirtazapine 15 mg tablet 7.5 mg PO BEDTIME 11/21/24 11/30/24 pantoprazole 40 mg tablet,delayed 40 mg PO DAILY@0630 11/21/24 11/30/24 release (Protonix) sennosides 8.6 mg tablet (Senna 8.6 mg PO Q12H PRN Constipation 11/21/24 11/30/24 Lax) sodium phosphates 19 gram-7 118 ml NM DAILY PRN Constipation 11/21/24 11/30/24 gram/118 mL enema (Fleet Enema) tamsulosin 0.4 mg capsule (Flomax) 0.4 mg PO DAILY 11/21/24 11/30/24 Previous Rx's ?Medication ?Instructions ?Recorded finasteride 5 mg tablet 5 mg PO DAILY #0 tabs 11/29/24 Allergies Allergy/AdvReac Type Severity Reaction Status Date / Time No Known Allergies Allergy Verified 11/30/24 02:25 Review of Systems Review of Systems: Unable to obtain secondary to dementia Yes all other systems are reviewed and are negative [facility] Past Medical History Attestation statement: The following information was validated with the patient. Medical History Subdural hematoma BPH (benign prostatic hyperplasia) Vascular dementia Social History Social History Household Members: Other Housing: [facility] Do you presently have visiting nurse or other home services: No Comment: 1:1 Patient Tobacco Use Status: Never used Tobacco Smoked in Last 30 Days: Yes e-Cigarette/Vaping Use: Never Used Use of substances other than those prescribed or required for medical reasons: No Currently Displaying Signs/Symptoms of Drug Intoxication Withdrawal: No Have you been hit, kicked, punched, or otherwise hurt by someone within the past year? If so, by whom?: No Do you feel safe in your current relationship?: Yes Is there a partner from a previous relationship who is making you feel unsafe now?: No Are you made to feel afraid or neglected: No Advance Directives: No Advance Directives Information Provided: Yes Advance Directives Date on File: 11/21/24 Do you have thoughts of harming others: None Do you have a plan to hurt others: No Plan Recently lost weight without trying: Unsure service: Yes Sexual orientation: Straight/Heterosexual Physical Exam ED Vital Signs: Vital Signs - 24 hr 11/30/24 06:39 11/30/24 09:34 11/30/24 11:01 Temperature 98.0 F 98.1 F Pulse Rate 109 H 106 H 94 Respiratory Rate 20 16 18 Blood Pressure 112/73 115/64 103/68 Pulse Oximetry 96 96 96 Oxygen Delivery Method Room Air Room Air Room Air 11/30/24 13:08 11/30/24 16:00 11/30/24 16:20 Temperature 98.3 F Pulse Rate 109 H 87 Respiratory Rate 16 16 Blood Pressure 105/63 87/47 L 86/53 L Pulse Oximetry 96 Oxygen Delivery Method Room Air Room Air 11/30/24 17:45 11/30/24 18:00 11/30/24 18:46 Temperature Pulse Rate 78 Respiratory Rate 18 Blood Pressure 90/54 L 90/66 96/55 L Pulse Oximetry 98 Oxygen Delivery Method Room Air 11/30/24 19:56 11/30/24 21:21 12/01/24 03:27 Temperature Pulse Rate 82 75 Respiratory Rate 17 16 Blood Pressure 95/61 123/95 H Pulse Oximetry 97 Oxygen Delivery Method Room Air 12/01/24 04:00 Temperature Pulse Rate 74 Respiratory Rate 17 Blood Pressure Pulse Oximetry Oxygen Delivery Method BMI result Body Mass Index 21.3 Const Other: Awake, no evidence of obvious head trauma on exam Orientation/consciousness: oriented to person Resp Effort & Inspection: normal respiratory effort Cardio Other: Normal peripheral perfusion Skin Other: Abrasions noted over lower extremities and elbow not bleeding Neuro General: oriented to person, no focal motor deficits and CN's II-XI intact bilaterally Extrem Other: Patient able to move all extremities independently, without pain no deformity noted over upper or lower extremities Psych Other: Cooperative Course Reevaluation(s) Reevaluation #1: The patient is becoming hostile and belligerent, he is yelling and cursing at staff members. Attempts were made to deescalate the patient, his behaviors worsened, he is trying to hit and scratch staff, he is trying to pull out his kelly....we are medicating with low dose IV haldol 2.5 mg Time: 01:33 Medications Administered Generic Name Dose Route Start Last Admin Trade Name Freq PRN Reason Stop Dose Admin Acetaminophen 650 mg 12/01/24 12:51 12/03/24 22:47 Acetaminophen 325 Mg Tablet PO 650 mg Q6H PRN Administration Headache/Pain, Scale 1-10 Atorvastatin Calcium 80 mg 11/30/24 15:45 12/08/24 08:38 Atorvastatin Calcium 80 Mg Tablet PO 80 mg DAILY ENDY Administration Bisacodyl 10 mg 11/30/24 15:35 12/08/24 16:44 Bisacodyl 10 Mg Supp.Rect NM 10 mg DAILY PRN Administration Constipation Cefuroxime Axetil 250 mg 12/01/24 09:00 12/08/24 21:44 Cefuroxime Axetil 250 Mg Tablet PO Not Given BID ENDY Clonazepam 0.125 mg 12/06/24 15:00 12/08/24 21:45 Clonazepam Odt 0.125 Mg Tab.Rapdis PO Not Given TID ENDY Finasteride 5 mg 11/30/24 15:45 12/08/24 08:38 Finasteride 5 Mg Tablet PO 5 mg DAILY ENDY Administration Hydrocortisone 1 appl 12/01/24 09:00 12/08/24 21:45 Hydrocortisone 1 % Ointment 28.35 Gm Tube TOPICAL Not Given BID [facility] Protocol Melatonin 6 mg 11/30/24 21:00 12/08/24 21:45 Melatonin 3 Mg Tablet PO Not Given BEDTIME ENDY Midodrine 10 mg 11/30/24 15:45 12/08/24 16:43 Midodrine Hcl 10 Mg Tablet PO 10 mg TIDWM ENDY Administration Mirabegron 25 mg 12/08/24 09:00 12/08/24 08:38 Mirabegron 25 Mg Tab.Er.24h PO 25 mg DAILY ENDY Administration Mirtazapine 15 mg 12/06/24 21:00 12/08/24 21:45 Mirtazapine 15 Mg Tablet PO Not Given BEDTIME [facility] Omeprazole 20 mg 11/30/24 16:30 12/09/24 06:38 Omeprazole 20 Mg Capsule.Dr PO Not Given DAILY@0630 [facility] Risperidone 0.5 mg 12/04/24 09:25 12/08/24 21:45 Risperidone 0.5 Mg Tablet PO Not Given TID [facility] Tamsulosin HCl 0.4 mg 11/30/24 15:45 12/08/24 08:38 Tamsulosin Hcl 0.4 Mg Capsule PO 0.4 mg DAILY ENDY Administration Discontinued Medications Generic Name Dose Route Start Last Admin Trade Name Keithq PRN Reason Stop Dose Admin Haloperidol Lactate 2.5 mg 12/01/24 01:20 12/01/24 01:23 Haloperidol Lactate 5 Mg/Ml Vial IVPUSH 12/01/24 01:21 2.5 mg ONCE ONE Administration Mirtazapine 7.5 mg 11/30/24 21:00 12/05/24 21:09 Mirtazapine 7.5 Mg Tablet PO 7.5 mg BEDTIME ENDY Administration Phenazopyridine HCl 200 mg 12/03/24 17:00 12/03/24 16:48 Phenazopyridine Hcl 200 Mg Tablet PO 12/05/24 12:01 Not Given TIDWM [facility] Quetiapine Fumarate 25 mg 12/01/24 17:00 12/04/24 17:10 Quetiapine Fumarate 25 Mg Tablet PO 25 mg DAILY@1700 ENDY Administration Quetiapine Fumarate 25 mg 11/30/24 20:17 12/04/24 12:06 Quetiapine Fumarate 25 Mg Tablet PO 25 mg BID PRN Administration agitation Trazodone HCl 50 mg 11/30/24 20:19 12/03/24 22:47 Trazodone Hcl 50 Mg Tablet PO 50 mg BEDTIME PRN Administration Insomnia Medical Decision Making Medical Decision Making MDM Narrative: 79-year-old male with a history of dementia presents from [facility] after unwitnessed fall. The patient has seemed agitated overnight, he kept pulling at his Kelly catheter. Problem: Dementia History: Per EMS I have considered the following differential diagnoses: Intracranial hemorrhage, cervical spine injury, fracture, dislocation Plan: The patient is not a reliable historian, he had an unwitnessed fall, scanning his head and neck. We will screen basic labs. Given he has was pulling at his Kelly catheter, perhaps he is developing a UTI, we will send a urine sample. It is reassuring that he is neurologically intact, not actively vomiting to suggest intracranial hemorrhage. He has no pain related complaints at this time. I have independently reviewed the following tests: Labs: No leukocytosis, not anemic, no electrolyte abnormality, Time: 09:05 Date: 11/30/24 Provider: Ayden Marrero MD The patient did have an unwitnessed fall here in the emergency department, apparently the patient climbed over the bed railing. When I evaluated the patient he was sitting up, he was very irritated and would not let us touch him. You were able to sit the patient up and I did examine him 0 0. Patient's head revealed no significant hematomas or tenderness, he had no cervical spine tenderness. Patient was able to stand and pivot to the stretcher. I do not think that he had any acute injury from the fall. CT scans of the head prior to his fall is consistent with a his old subdural hematoma. CT scan of the neck revealed no acute cervical fracture but there is a question of a right clavicle fracture therefore I ordered a dedicated right clavicle x-ray to evaluate this finding. Of note, this finding of a possible clavicle fracture is before his unwitnessed fall here in the emergency department. Patient was hospitalized from 11/21/2024 until 11/29/2024 and discharged yesterday to a new half-way facility. Patient did have an acute urinary tract infection secondary to Enterococcus faecalis treated with ceftriaxone and transitioned to ampicillin to complete a treatment course. Patient's urinalysis today was positive for protein, blood, leukocyte esterase. Microscopic revealed greater than 20 RBCs, 6-10 WBCs, 0 2 squamous cells and no bacteria. At this time I do not think that he needs any change in treatment unless there is a different organism that grows out of his urine from today specimen. 12:00 X-ray of the right clavicle is more consistent with an old fracture. The patient's states the patient is extremely agitated at the skilled nursing and she believes that he is a danger to himself and to others and needs a medication adjustment. Therefore I will consult care team to see if the patient would be appropriate for [facility] admission. 13:31 Patient was evaluated by the care team in the recommending psychiatric consult psychiatric consult to see if the patient's benefit from [facility] admission. 17:14 Time: 17:15 Date: 11/30/24 Provider: Ayden Marrero MD Patient in physician observation for psychiatric evaluation.? Patient's medications were reconciled and an ordered his outpatient medications. Patient was evaluated by the Care Team clinician. Given his dementia, he will need a psychiatric consultation to determine if he qualifies for [facility] admission and this has not been completed yet. At the end of my shift, patient's care was turned over to my colleague, Dr. Kathia Mckoy 06:30 12/01/2024 provider: Lashanda Pizarro MD Patient remains on physician observation. Patient will likely be admitted this morning to [facility]. I reviewed patient's labs from yesterday, no acute abnormality in patient's hematology or chemistry urinalysis positive for UTI. A comfort patient's urinalysis to the 1 from 11/21/2024, looks very similar. microbiology report, patient grew Enterococcus faecalis, sensitive to all meds except tetracycline. Patient is sleeping at this time, patient will be given cefuroxime p.o. earlier this morning Differential Diagnosis Differential Diagnoses: The differential diagnosis associated with the presentation includes See medical decision-making Admission/Observation Consideration of admission/observation: Escalation of care including admission/observation considered Not applicable Lab Data MDM Lab Attestation statement: I reviewed the patient's lab results. 12/02/24 13:49 12/02/24 13:49 Labs: Lab Results 11/30/24 11/30/24 12/01/24 Range/Units 02:52 06:48 12:01 WBC 7.1 (4.8-10.8) X10*3/uL RBC 3.66 L (4.60-5.80) X10*6/uL Hgb 11.7 L (14.0-18.0) g/dl Hct 34.5 L (42.0-52.0) % MCV 94.3 (80.0-98.0) fL MCH 32.0 (27.0-33.0) pg MCHC 33.9 (31.0-36.0) g/dl RDW 13.2 (11.0-16.0) % Plt Count 182 (160-400) X10*3/uL MPV 9.7 (9.4-12.4) fL Immature Gran % (Auto) 0.4 (0.0-0.4) % Neut % (Auto) 67.2 (45-73) % Lymph % (Auto) 19.1 L (20-40) % [place] % (Auto) 6.4 (2-11) % Eos % (Auto) 6.6 H (0-4) % Baso % (Auto) 0.3 (0-2) % Lymph # (Auto) 1.4 (1.2-4.9) X10*3/uL [place] # (Auto) 0.5 (0.1-1.2) X10*3/uL Eos # (Auto) 0.5 H (0.0-0.4) X10*3/uL Baso # (Auto) 0.0 (0.0-0.2) X10*3/uL Abs Immat Gran (auto) 0.03 (0.00-0.03) X10*3/uL Absolute Neuts (auto) 4.8 (2.0-8.3) x10*3/uL Absolute Nucleated RBC 0.000 (0.0-0.012) X10*3/uL Nucleated RBC % (auto) 0.0 (0.0-0.2) /100WBC Sodium 144 (135-145) mmol/L Potassium 4.7 D (3.3-5.1) mmol/L Chloride 112 H (96-108) mmol/L Carbon Dioxide 24 (22-29) mmol/L Anion Gap 13 (12-20) BUN 6 L (9-16) mg/dL Creatinine 1.05 (0.5-1.4) mg/dL Estim Creat Clear Calc 57.7 Estimated GFR > 60 Random Glucose 128 H (60-115) mg/dL Calcium 7.9 L D (8.4-10.2) mg/dL Total Bilirubin 0.3 (0.0-1.0) mg/dL AST 52 H (5-37) U/L ALT 38 (0-40) U/L Alkaline Phosphatase 92 (39-117) U/L Troponin I High Sens 14.0 (<3.5-35.0) ng/L Total Protein 6.4 L (6.5-8.0) g/dL Albumin 2.6 L (3.5-5.0) g/dL 25-OH Vitamin D Total 18 L (30-100) ng/mL 25-Hydroxy Vitamin D2 <4 ng/mL 25-Hydroxy Vitamin D3 18 ng/mL PTH Intact 52.5 (8.7-77.1) pg/mL Urine Color Yellow Urine Appearance Clear Urine pH 7.5 (5.0-9.0) Ur Specific [place] <= 1.005 (1.005-1.025) Urine Protein 100 (2+) H (Neg-Trace) mg/dL Urine Glucose (UA) Negative (Negative) mg/dL Urine Ketones Negative (Negative) mg/dL Urine Blood Large (3+) H (Negative) Urine Nitrite Negative (Negative) Ur Leukocyte Esterase Large (3+) H (Negative) Urine RBC >20 H (0-2) /HPF Urine WBC 6-10 (0-5) /HPF Ur Squamous Epith Cells 0-2 (0-2) /HPF Urine Bacteria None Seen (None Seen) Hyaline Casts 0-2 (0-2) /LPF Radiology Impression Discussion of test interpretation with radiology: I have reviewed the radiologist's reading. Radiologist Impression: CT head without contrast Comparison: CT/REG/SR - CT HEAD WITHOUT IV CONTRAST - 11/29/24 09:57 EDT Findings: Right frontoparietal and temporal subdural hematoma measures up to 7 mm in depth, unchanged. There is minimal 2 mm leftward midline shift, unchanged. No new hemorrhage is identified. Mild bilateral periventricular hypodensities are present. There is no hydrocephalus. The visualized paranasal sinuses and mastoid air cells are normal. There has been prior bilateral cataract surgery. Metallic densities are again seen along the inner table of bilateral temporal bones. No acute fracture is identified. IMPRESSION: 1. Right frontoparietal and temporal subdural hematoma measuring up to 7 mm in depth, unchanged. There is minimal 2 mm leftward midline shift, unchanged. This document has been electronically signed by: Rasheeda Caro on 11/30/2024 07:35:41 CT cervical spine without contrast Comparison: CT/NM/SR - CT CERVICAL SPINE WITHOUT IV CONTRAST - 11/21/24 12:05 EDT Findings: Mild multilevel marginal osteophyte formation is present. Vacuum disc phenomenon is seen at C5/6. Multilevel facet arthropathy is also noted. There is mild loss of anterior vertebral body height at T2, similar to prior exam. Alignment is within normal limits. There is no canal stenosis. Partially visualized right distal clavicular fracture is present. The thyroid gland appears normal. The lung apices are clear. IMPRESSION: 1. No acute osseous abnormality is identified in the cervical spine. 2. Age-indeterminate mild T2 compression fracture, similar to exam of 11/21/24. 3. Partially visualized right distal clavicular fracture. This document has been electronically signed by: Rasheeda Caro on 11/30/2024 07:26:18 XR clavicle RT IMPRESSION: Inferiorly displaced fracture distal right clavicle, probable old. Degenerative changes, right shoulder. Consider calcific tendinosis/tendinopathy, supraspinatus. Electronically signed by: Raghav Porras MD 11/30/2024 09:28 AM Discharge Plan Discharge Clinical Impression: Chronic subdural hematoma, Dementia, Fall at skilled nursing, Aggressive behavior Patient Disposition: Admitted As Inpatient Discharge Date/Time: 12/01/24 13:55
--- OUTSIDE RECORDS SUMMARY | 2024-11-30 06:08 | XMS_ITS | Encounter Summary ---
Author Organization [facility] Address [address] [place] [address] [place] [phone] Phone Care Team Providers Care Inspector Timers Name Role Phone Miquel Lo DO Unavailable Miquel Lo DO Primary Care Provider Rikki Shen OT Unavailable Chaparrita Harper RN Unavailable [phone] Christopher Dunham MD Unavailable [phone] Christy Novak CONTACT LENS ASSISTANT Unavailable Chaparrita Nicolas MD Unavailable Jerrod Sanchez DO Unavailable [phone] Encounter Details Date Type Department Care Team (Late st Contact Info) Description 06/30/2020 Procedure Pass [facility], Ct Scan - [address] [address] Social History Tobacco Use Types Packs/Day Years Used Date Smoking Tobacco: Every Day Smokeless Tobacco: Never Sex and Gender Information Value Date Recorded Sex Assigned at Male 07/19/2022 12:56 PM EDT Legal Sex Male 8:32 PM EDT Gender Identity Male 07/19/2022 12:56 PM EDT Sexual Orientation Straight 10/03/2024 1: 16 PM EDT documented as of this encounter Functional Status * Calculated C-SSRS Risk Score (Lifetime/Recent) Answer Date of Assessment Author No Risk Indicated 06/30/2020 11:16 PM EDT Natividad Rivera RN * Bryan Suicide Severity Rating Scale (Screener/Recent Self-Report) Question Answer Date of Assessment Author 1. Wish to be (Past 1 Month) No 021 11:16 PM EDT Natividad Rivera RN 2. Non-Specific Active Suici cherly Thoughts (Past 1 Month) No 06/30/2020 11:16 PM EDT Suzi Rivera RN 6. Suicidal Behavior (Lifetime) No 11:16 PM EDT Natividad Rivera RN documented as of this encounter Plan of Treatment Upcoming Encounters Date Type Department Care Team (Late st Contact Info) Description 01/10/2025 2:30 PM EDT Office Visit [facility] [address] [place] [address] Miquel Lo DO [address] [address] [email or web address] 05/18/2025 10:30 AM EST Office Visit [facility] [address] [place] [phone] Logan Scott DO [address] [place] [id number] [email or web address] documented as of this encounter Visit Diagnoses Not on filedocumented in this encounter Additional Health Concerns Infection Onset Date Last Indicated Resolved Time CoV-Risk 12/05/2020 12/05/2020 12/15/2020 1:25 AM EDT Assessment Noted Time PHQ-2 Depression Total Score: 2 08/31/19 20 9:52 AM EDT documented as of this encounter Care Teams Inspector Timers Relationship Specialty Start Date End Date Miquel Lo DO [address] [phone] [email or web address] PCP - General 04/02/17 Miquel Lo DO [address] [address] [email or web address] Insurance Assigned Provider 07/04/23 Rikki Shen OT [address] [place] [address] [email or web address] Dog Control OfficerSteam Plant Operator Therapy 07/02/20 07/02/20 Chaparrita Harper, RENALDO [address] [place] [phone] [email or web address] Dog Control Officer 06/05/21 Christopher Dunham MD [address] [place] [id number] [email or web address] Primary Oncologist Medical Oncology 04/22/22 09/08/24 Christy Novak CNP [address] [place] [phone] [email or web address] Nurse Practitioner Medical Oncology 05/05/22 Chaparrita Nicolas MD [address] [place] [phone] [email or web address] Geriatric Medicine 06/20/22 Jrerod Sanchez DO [address] [place] [id number] [email or web address] Hematology and Oncology 09/09/24 documented as of this encounter Additional Source Comments The information contained in this document represents components of the legal health record. It is not the complete legal health record.[facility]
--- OUTSIDE RECORDS SUMMARY | 2024-11-30 06:08 | XMS_ITS | Clinical Summary ---
Author Organization [facility] [place] [address] Care Team Providers Care High Wire Artist Name Role Phone Miquel Lo DO Primary Care Provider [phone] Allergies No known active allergies Medications Eliquis [...] 75+ series) 09/18/2022 Covid-19 Vaccine (3 - 2025-26 season) 11/28/202412/2020, 06/16/2020 Influenza (Flu) vaccine (1 o f 1 - Influenza standard series) 11/28/2024 Insurance MEDICARE Care Teams High Wire Artist Relationship Specialty Start Date End Date Miquel Lo DO [address] [place] [address] [address] [place] [id number] PCP - General Family Medicine 09/26/19
--- OUTSIDE RECORDS SUMMARY | 2024-11-30 06:08 | XMS_ITS | Encounter Summary ---
Author Organization [facility] Address [address] [place] [address] [place] [address] Phone Care Team Providers Care [employer] Advisor Name Role Phone Miquel Lo DO Unavailable Miquel Lo DO Primary Care Provider Chaparrita Harper RN Unavailable Christopher Dunham MD Unavailable Christy Novak CNP Unavailable Chaparrita Nicolas MD Unavailable [phone] Jerrod Sanchez DO Unavailable [phone] Encounter Details Date Type Department Care Team (Late st Contact Info) Description 07/16/2021 Procedure Pass [facility], [address] [place] [address] Social History Tobacco Use Types Packs/Day Years Used Date Smoking Tobacco: Every Day Cigarettes Smokeless Tobacco: Never Alcohol Use Standard Drinks/Week Comments Not Currently 0 (1 standard drink = 0.6 oz pur e alcohol) Child or Family Care Answer Date Record ed Do you have problems with on e of the following making it difficult for you to work, study, or receive health care? No 07/11/2020 Education Answer Date Recorded Are you interested in help w ith more adult education (for example, completing high school, GED, job training, learning the Azeri language, technical skills, or developing parenting skills)? No 07/11/2020 Food Answer Date Recorded Within the past 6 months we worried whether our food would run out before we got money to buy more. Never True 07/11/2020 Within the past 6 months the food we bought just didn't last and we didn't have enough money to get more. Never True Paying for Meds Answer Date Recorded Do you have trouble paying for medicines? No 07/11/2020 Paying Utility Bills Answer Date Record ed Do you have trouble paying your heating or elect ricity bill? No 07/11/2020 Transportation Answer Date Recorded Has the lack of transportati on kept you from medical appointments or from getting medications? No 07/11/2020 Sex and Gender Information Value Date Recorded Sex Assigned at Male 07/19/2022 12:56 PM EDT Legal Sex Male 8:32 PM EDT Gender Identity Male 07/19/2022 12:56 PM EDT Sexual Orientation Straight 10/03/2024 1: 16 PM EDT documented as of this encounter Last Filed Vital Signs Vital Sign Reading Time Taken Comments Blood Pressure - - Pulse - - Temperature - - Respiratory Rate - - Oxygen Saturation - - Inhaled Oxygen Concentration - - Weight 88.5 kg (195 lb) 07/19/2021 7:33 PM EDT Height 182.9 cm (6') 07/19/2021 7:33 PM EDT Body Mass Index 26.45 07/19/2021 7:33 PM EDT documented in this encounter Plan of Treatment Upcoming Encounters Date Type Department Care Team (Late st Contact Info) Description 01/10/2025 2:30 PM EDT Office Visit [facility] Medicine [address] [place] [address] Miquel Lo, DO 234 [facility] [address] [place] [address] 05/18/2025 10:30 AM EST Office Visit [facility] Geriatrics [address] [place] [address] [place] [address] Logan Scott, DO 22 [place] [address] documented as of this encounter Goals Goal Patient Goal Type Associated Problems Recent Progress Patient-Stated? Author Adhere to prescribed treatment plan Care Plan Chronic Condition Self-Managemen t Chaparrita Coleman RN Increase participation in self-management activities Care Plan Chronic Condition Self-Managemen t Chaparrita Coleman RN Participation in sick day plan for condition Care Plan Chronic Condition Self-Managemen t Chaparrita Coelman RN Participation in telemedicine activities to monitor condition Care Plan Chronic Condition Self-Managemen t Chaparrita Coleman RN Understand symptoms and warning signs to report to Provider Care Plan Chronic Condition Self-Managemen t No Chaparrita Harper RN Improved control over condition Care Plan Chronic Condition Self-Managemen t Chaparrita Coleman RN No unplanned hospitalizations for condition Care Plan Chronic Condition Self-Managemen t Chaparrita Coleman RN Able to maintain current level of functioning Care Plan Chronic Condition Self-Managemen t Chaparrita Coleman RN Avoid environmental and psychosocial exposures to triggers that worsen condition Care Plan Chronic Condition Self-Managemen t Chaparrita Coleman RN Increase physical activity / mobility Care Plan Chronic Condition Self-Managemen t No Chaparrita Harper RN documented as of this encounter Visit Diagnoses Not on filedocumented in this encounter Additional Health Concerns Active Problems Noted Date Diagnosed Date Chronic Condition Self-Management 07/09/2021 Assessment Noted Time PHQ-2 Depression Total Score: 2 08/31/19 20 9:52 AM EDT documented as of this encounter Care Teams [employer] Advisor Relationship Specialty Start Date End Date Miquel Lo DO [address] [address] [email or web address] PCP - General 04/02/17 Miquel Lo DO [address] [address] Insurance Assigned Provider 07/04/23 Chaparrita Harper RN [address] [place] [address] iCMP Final Tester 06/05/21 Christopher Dunham MD [address] [place] [address] [address] [place] [address] [email or web address] Primary Oncologist Medical Oncology 04/22/22 09/08/24 Christy Novak CNP [address] [place] [address] [email or web address] Nurse Practitioner Medical Oncology 05/05/22 Chaparrita Nicolas MD [address] [place] [address] [email or web address] Geriatric Medicine 06/20/22 Jerrod Sanchez DO [address] [place] [address] [email or web address] Hematology and Oncology 09/09/24 documented as of this encounter Additional Source Comments The information contained in this document represents components of the legal health record. It is not the complete legal health record.[facility]
--- OUTSIDE RECORDS SUMMARY | 2024-11-30 06:08 | XMS_ITS | Encounter Summary ---
Author Organization [facility] Address [address] [place] [address] Phone Care Team Providers Care Scalper Operator Name Role Phone Miquel Lo DO Unavailable Miquel Lo DO Primary Care Provider [phone] Rikki Shen OT Unavailable Chaparrita Harper RN Unavailable [phone] Christopher Dunham MD Unavailable Christy Novak BURNING PLANT OPERATOR Unavailable Chaparrita Nicolas MD Unavailable [phone] Jerrod Sanchez DO Unavailable [phone] Encounter Details Date Type Department Care Team (Late st Contact Info) Description 02/17/2020 Procedure Pass [facility] [address] [place] [address] Social History Tobacco Use Types Packs/Day Years [...] Description 01/10/2025 2:30 PM EDT Office Visit [facility] [address] [place] [address] Miquel Lo, DO 234 [facility] 7 [place] [address] [email or web address] 05/18/2025 10:30 AM EST Office Visit [facility] Geriatrics [address] [place] [address] Logan Scott DO 22 [place] [address] [email or web address] documented as of this encounter Visit Diagnoses Not on filedocumented in this encounter Additional Health Concerns Infection Onset Date Last Indicated Resolved Time CoV-Risk 12/05/2020 12/05/2020 12/15/2020 1:25 AM EDT Assessment Noted Time PHQ-2 Depression Total Score: 2 08/31/19 20 9:52 AM EDT documented as of this encounter Care Teams Scalper Operator Relationship Specialty Start Date End Date Miquel Lo DO [address] [address] [email or web address] PCP - General 04/02/17 Miquel Lo DO [address] [address] [email or web address] Insurance Assigned Provider 07/04/23 Rikki Shen OT [address] [place] [address] [email or web address] Transitions Fluorescent Solution MixerPaint Spraying Machine Operator Helper Therapy 07/02/20 07/02/20 Chaparrita Harper, RN [address] [place] [phone] [email or web address] iCMP Fluorescent Solution Mixer 06/05/21 Christopher Dunham MD [address] [place] [address] [address] [place] [address] [email or web address] Primary Oncologist Medical Oncology 04/22/22 09/08/24 Christy Novak CNP [address] [place] [address] [email or web address] Nurse Practitioner Medical Oncology 05/05/22 Chaparrita Nicolas MD [address] [place] [address] [email or web address] Geriatric Medicine 06/20/22 Jerrod Sanchez DO [address] [place] [address] [email or web address] Hematology and Oncology 09/09/24 documented as of this encounter Additional Source Comments The information contained in this document represents components of the legal health record. It is not the complete legal health record.[facility]
--- OUTSIDE RECORDS SUMMARY | 2024-11-30 06:08 | XMS_ITS | Encounter Summary ---
Author Organization [facility] Address formerly [facility] [address] [place] [address] Phone Care Team Providers Care Store Promoter Name Role Phone Miquel Lo DO Unavailable Miquel Lo DO Primary Care Provider [phone] Chaparrita Harper RN Unavailable Christy Novak EXPERIMENTAL FLIGHT TEST MECHANIC Unavailable Chaparrita Nicolas MD Unavailable [phone] Jerrod Sanchez DO Unavailable Encounter Details Date Type Department Care Team (Late st Contact Info) Description 10/03/2024 Procedure Pass [facility], [facility] Scan - [address] [address] Social History Tobacco Use Types Packs/Day Years Used Date Smoking Tobacco: Every Day Cigarettes 0.5 65.7 Started: 1958 Smokeless Tobacco: Never Alcohol Use Standard Drinks/Week Comments Not Currently 0 (1 standard drink = 0.6 oz pur e alcohol) rarely Child or Family Care Answer Date Record ed Do you have problems with on e of the following making it difficult for you to work, study, or receive health care? No 07/11/2020 Education Answer Date Recorded Are you interested in more education? Not on josiane e 07/25/2022 Are you concerned about learning? Not on file 07/25/2022 No 07/25/2022 No 07/25/2022 Food Answer Date Recorded Within the past 6 months we worried whether our food would run out before we got money to buy more. Never True 09/10/2024 Within the past 6 months the food we bought just didn't last and we didn't have enough money to get more. Never True Residential Stability Answer Date Recor ded What is your housing situation today? I have gomez cristobal 09/10/2024 How many times have you move d in the past 12 months? Zero (I did not move) 09/10/2024 Paying for Meds Answer Date Recorded Do you have trouble paying for medicines? No 09/10/2024 Paying Utility Bills Answer Date Record ed Do you have trouble paying your heating or elect ricity bill? No 09/10/2024 Transportation Answer Date Recorded Has the lack of transportati on kept you from medical appointments or from getting medications? No 09/10/2024 Digital Access Answer Date Recorded No 09/10/2024 Yes 09/10/2024 Do you have reliable internet access at home? Ye s 09/10/2024 Do you have a device (e.g., phone, tablet, computer) with a working camera? Yes 09/10/2024 Intimate Partner Violence Answer Date R ecorded Are you denied basic needs s uch as food, clothing, or medical care? No 10/03/2024 In the past 12 months have y ou been in a relationship with a person who hurts, threatens, or tries to control you? No 10/03/2024 Are you denied basic needs s uch as food, clothing, or medical care? No 10/03/2024 In the past 12 months have y ou been in a relationship with a person who hurts, threatens, or tries to control you? No 10/03/2024 Sex and Gender Information Value Date Recorded Sex Assigned at Male 07/19/2022 12:56 PM EDT Legal Sex Male 8:32 PM EDT Gender Identity Male 07/19/2022 12:56 PM EDT Sexual Orientation Straight 10/03/2024 1: 16 PM EDT Occupation Industry Job Start Date Job End Date retired [employer] Not on file Not on file Not on f ile documented as of this encounter Functional Status * Calculated C-SSRS Risk Score (Lifetime/Recent) Answer Date of Assessment Author No Risk Indicated 10/03/2024 1:16 PM EDT Kadie Collier, RN * [place] Suicide Severity Rating Scale (Screener/Recent Self-Report) Question Answer Date of Assessment Author 1. Wish to be (Past 1 Month) No 025 1:16 PM EDT Kadie Mcclelland, RN 2. Non-Specific Active Suici cheryl Thoughts (Past 1 Month) No 10/03/2024 1:16 PM EDT Kadie Mcclelland, RN 6. Suicidal Behavior (Lifetime) No 1:16 PM EDT Kadie Mcclelland, RN documented as of this encounter Plan of Treatment Upcoming Encounters Date Type Department Care Team (Late st Contact Info) Description 01/10/2025 2:30 PM EDT Office Visit [facility] Medicine [address] [place] [address] Miquel Lo, DO 234 [facility], [address] [place] [address] [email or web address] 05/18/2025 10:30 AM EST Office Visit [facility] [address] [place] [address] Logan Scott, DO 22 [place] [address] [email or web address] documented as of this encounter Goals Goal Patient Goal Type Associated Problems Recent Progress Patient-Stated? Author Adhere to prescribed treatment plan Care Plan Chronic Condition Self-Managemen t No Chaparrita Harper, RENALDO Increase participation in self-management activities Care Plan Chronic Condition Self-Managemen t No Chaparrita Harper, RN Participation in sick day plan for condition Care Plan Chronic Condition Self-Managemen t No Chaparrita Harper, RN Participation in telemedicine activities to monitor condition Care Plan Chronic Condition Self-Managemen t No Chaparrita Harper, RN Understand symptoms and warning signs to report to Provider Care Plan Chronic Condition Self-Managemen t No Chaparrita Harper, RN Improved control over condition Care Plan Chronic Condition Self-Managemen t No Chaparrita Harper, RN No unplanned hospitalizations for condition Care Plan Chronic Condition Self-Managemen t No Chaparrita Harper RN Able to maintain current level of functioning Care Plan Chronic Condition Self-Managemen t No Chaparrita Harper RN Avoid environmental and psychosocial exposures to triggers that worsen condition Care Plan Chronic Condition Self-Managemen t No Chaparrita Harper RN Increase physical activity / mobility Care Plan Chronic Condition Self-Managemen t No Chaparrita Harper RN Adhere to prescribed treatment plan Care Plan Chronic Condition Self-Managemen t No Chaparrita Harper RN Note: Patient Agrees with goal priority: {yes/no:[id number]} Patient Self-Management activities for this goal: {pick list:25783759} Task/Interventions: Increase participation in self-management activities Care Plan Chronic Condition Self-Managemen t No Chaparrita Harper RN Note: Patient Agrees with goal priority: {yes/no:75808665} Patient Self-Management activities for this goal: {pick list:59811095} Task/Interventions: Participation in sick day plan for condition Care Plan Chronic Condition Self-Managemen t No Chaparrita Harper RN Note: Patient Agrees with goal priority: {yes/no:54957602} Patient Self-Management activities for this goal: {pick list:13516534} Task/Interventions: Participation in telemedicine activities to monitor condition Care Plan Chronic Condition Self-Managemen t No Chaparrita Harper RN Note: Patient Agrees with goal priority: {yes/no:55168096} Patient Self-Management activities for this goal: {pick list:81174128} Task/Interventions: Understand symptoms and warning signs to report to Provider Care Plan Chronic Condition Self-Managemen t No Chaparrita Harper RN Note: Patient Agrees with goal priority: {yes/no:79719745} Patient Self-Management activities for this goal: {pick list:47092176} Task/Interventions: Improved control over condition Care Plan Chronic Condition Self-Managemen t No Chaparrita Harper RN Note: Patient Agrees with goal priority: {yes/no:65278211} Patient Self-Management activities for this goal: {pick list:64103407} Task/Interventions: No unplanned hospitalizations for condition Care Plan Chronic Condition Self-Managemen t No Chaparrita Harper RN Note: Patient Agrees with goal priority: {yes/no:91528757} Patient Self-Management activities for this goal: {pick list:85536972} Task/Interventions: Able to maintain current level of functioning Care Plan Chronic Condition Self-Managemen t No Chaparrita Harper RN Note: Patient Agrees with goal priority: {yes/no:69352010} Patient Self-Management activities for this goal: {pick list:21833294} Task/Interventions: Avoid environmental and psychosocial exposures to triggers that worsen condition Care Plan Chronic Condition Self-Managemen t No Chaparrita Harper RN Note: Patient Agrees with goal priority: {yes/no:08576842} Patient Self-Management activities for this goal: {pick list:81989509} Task/Interventions: documented as of this encounter Visit Diagnoses Not on filedocumented in this encounter Additional Health Concerns Active Problems Noted Date Diagnosed Date Chronic Condition Self-Management 07/09/2021 Chronic Condition Self-Management 01/20/2023 Assessment Noted Time PHQ-9 Depression Total Score: 9 06/03/19 25 6:33 PM EST PHQ-2 Depression Total Score: 4 06/03/19 25 6:33 PM EST documented as of this encounter Care Teams Store Promoter Relationship Specialty Start Date End Date Miquel Lo DO 234 [facility] [address] [place] [address] [email or web address] PCP - General 04/02/17 Miquel Lo DO 234 [facility] [address] [place] [address] [email or web address] Insurance Assigned Provider 07/04/23 Chaparrita Harper RN [address] [place] [address] [email or web address] iCMP Sql Server Dba Developer 06/05/21 Christy Novak CNP [address] [place] [address] [email or web address] Nurse Practitioner Medical Oncology 05/05/22 Chaparrita Nicolas MD [address] [place] [address] [email or web address] Geriatric Medicine 06/20/22 Jerrod Sanchez DO [address] [place] [address] [email or web address] Hematology and Oncology 09/09/24 documented as of this encounter Additional Source Comments The information contained in this document represents components of the legal health record. It is not the complete legal health record.[facility]
--- OUTSIDE RECORDS SUMMARY | 2024-11-30 06:08 | XMS_ITS | Encounter Summary ---
Author Organization [facility] Address [address] [place] [address] Phone Care Team Providers Care Rustic Fence Builder Name Role Phone Miquel Lo DO Unavailable Miquel Lo DO Primary Care Provider [phone] Rikki Shen OT Unavailable [phone] Chaparrita Harper RN Unavailable [phone] Christopher Dunham MD Unavailable [phone] Christy Novak STUDENT SUCCESS COUNSELOR Unavailable Chaparrita Nicolas MD Unavailable Jerrod Sanchez DO Unavailable Encounter Details Date Type Department Care Team (Late st Contact Info) Description 07/01/2020 Procedure Pass [facility], [address] [address] Social History Tobacco Use Types Packs/Day Years [...] Description 01/10/2025 2:30 PM EDT Office Visit [facility] [address] [place] [address] Miquel Lo, DO 234 [facility] 7 [place] [address] [email or web address] 05/18/2025 10:30 AM EST Office Visit [facility] Geriatrics [address] [place] [address] Logan Scott DO 22 [place] [address] [email or web address] documented as of this encounter Visit Diagnoses Not on filedocumented in this encounter Additional Health Concerns Infection Onset Date Last Indicated Resolved Time CoV-Risk 12/05/2020 12/05/2020 12/15/2020 1:25 AM EDT Assessment Noted Time PHQ-2 Depression Total Score: 2 08/31/19 20 9:52 AM EDT documented as of this encounter Care Teams Rustic Fence Builder Relationship Specialty Start Date End Date Miquel Lo DO 234 [facility] 7 [place] [address] [email or web address] PCP - General 04/02/17 Miquel Lo DO [address] [place] [address] 7 [place] [address] [email or web address] Insurance Assigned Provider 07/04/23 Rikki Shen OT [address] [place] [address] [email or web address] Transitions Senior Software Quality EngineerHvac Manager Therapy 07/02/20 07/02/20 Chaparrita Harper, RENALDO [address] [place] [phone] [email or web address] iCMP Senior Software Quality Engineer 06/05/21 Christopher Dunham MD [address] [place] [address] [address] [place] [address] [email or web address] Primary Oncologist Medical Oncology 04/22/22 09/08/24 Christy Novak CNP [address] [place] [address] [email or web address] Nurse Practitioner Medical Oncology 05/05/22 Chaparrita Nicolas MD [address] [place] [address] [email or web address] Geriatric Medicine 06/20/22 Jerrod Sanchez DO [address] [place] [address] [email or web address] McallisterST. [facility] Hematology and Oncology 09/09/24 documented as of this encounter Additional Source Comments The information contained in this document represents components of the legal health record. It is not the complete legal health record.[facility]
--- OUTSIDE RECORDS SUMMARY | 2024-11-30 06:08 | XMS_ITS | Encounter Summary ---
Author Organization [employer] Address [address] [place] [address] Care Team Providers Care Renal Dialysis Technician Name Role Phone Cee Gorman MD Primary Care Provider + Encounter Details Date Type Department Care Team (Late st Contact Info) Description 11/04/2024 Lab Requisition [facility] Lab [address] [place] [address] Cee Gorman MD [address] [address] Essential (primary) hypertension; Anemia, unspecified; Chronic kidney [...] Associated Diagnosis Comments COMPLETE BLOOD COUNT Routine 11/07/2024 9:01 AM EDT Essential (primary) hypertension Anemia, unspecified Chronic kidney disease, unspecified Other disorders of electrolyte and fluid balance, not elsewhere classified COMPREHENSIVE METABOLIC PANEL Routine 11/07/2024 9:01 AM EDT Essential (primary) hypertension Anemia, unspecified Chronic kidney disease, unspecified Other disorders of electrolyte and fluid balance, not elsewhere classified documented in this encounter Results * (ABNORMAL) Comprehensive metabolic panel (11/07/2024 9:01 AM EDT) Sodium 141 133 - 145 mmol/L LAB CHEMISTRY METHOD 11/07/2024 12:30 PM EDT [facility] Potassium 3.8 3.5 - 5.5 mmol/L LAB CHEMISTRY METHOD 11/07/2024 12:30 PM [facility] Chloride 109 96 - 110 mmol/L LAB CHEMISTRY METHOD 11/07/2024 12:30 PM [facility] CO2 28 21 - 32 mmol/L LAB CHEMISTRY METHOD 11/07/2024 12:30 PM [facility] Anion Gap 4 3 - 11 LAB CHEMISTRY METHOD 11/07/2024 12:30 PM [facility] Glucose 73 70 - 100 mg/dL LAB CHEMISTRY METHOD 11/07/2024 12:30 PM [facility] BUN 12 5 - 25 mg/dL LAB CHEMISTRY METHOD 11/07/2024 12:30 PM [facility] Creatinine 1.02 0.70 - 1.30 mg/dL LAB CHEMISTRY METHOD 11/07/2024 12:30 PM [facility] LAB eGFR 76 >=60 mL/min/1. 73m2 LAB CHEMISTRY METHOD 11/07/2024 12:30 PM [facility] LAB Comment:Calculation based on the Chronic Kidney Disease Epidemiology Collaboration (CKD-EPI) equation refit without adjustment for race. BUN/Creatinine Ratio 11.8 LAB CHEMISTRY METHOD 11/07/2024 12:30 PM [facility] Calcium 8.0(L) 8.5 - 10.5 mg/dL LAB CHEMISTRY METHOD 11/07/2024 12:30 PM [facility] LAB AST (SGOT) 15 10 - 42 unit/L LAB CHEMISTRY METHOD 11/07/2024 12:30 PM [facility] ALT (SGPT) 14 10 - 60 unit/L LAB CHEMISTRY METHOD 11/07/2024 12:30 PM [facility] Alkaline Phosphatase 93 42 - 121 unit/L LAB CHEMISTRY METHOD 11/07/2024 12:30 PM [facility] Total Protein 6.2 6.0 - 8.0 g/dL LAB CHEMISTRY METHOD 11/07/2024 12:30 PM EDT [facility] Albumin 2.6(L) 3.2 - 5.0 g/dL LAB CHEMISTRY METHOD 11/07/2024 12:30 PM EDT [facility] Total Bilirubin 0.5 0.0 - 1.4 mg/dL LAB CHEMISTRY METHOD 11/07/2024 12:30 PM EDT [facility] Blood Venous blood specimen / Unknown Venipuncture / Unknown 11/07/2024 9:01 AM EDT 11/07/2024 11:30 AM EDT us Cee Gorman MD LAB BLOOD ORDERABLES Fin al Result [facility] [address] [place] [address], * (ABNORMAL) Complete blood count (11/07/2024 9:01 AM EDT) WBC 5.8 4.8 - 10.8 K/mcL LAB HEMETOLOGY METHOD 11/07/2024 1:30 PM EDT [facility] RBC 3.70(L) 4.50 - 5.50 M/mcL LAB HEMETOLOGY METHOD 11/07/2024 1:30 PM EDT [facility] Hemoglobin 11.7(L) 13.5 - 17.5 g/dL LAB HEMETOLOGY METHOD 11/07/2024 1:30 PM EDT [facility] Hematocrit 37.4(L) 42.0 - 54.0 % LAB HEMETOLOGY METHOD 11/07/2024 1:30 PM EDT [facility] MCV 101.1(H) 79.0 - 98.0 FL LAB HEMETOLOGY METHOD 11/07/2024 1:30 PM EDT [facility] MCH 31.6 27.0 - 32.0 pcg LAB HEMETOLOGY METHOD 11/07/2024 1:30 PM EDT [facility] MCHC 31.3(L) 32.0 - 37.0 g/dL LAB HEMETOLOGY METHOD 11/07/2024 1:30 PM EDT [facility] RDW 13.9 11.0 - 15.0 % LAB HEMETOLOGY METHOD 11/07/2024 1:30 PM EDT [facility] Platelets 224 130 - 400 K/mcL LAB HEMETOLOGY METHOD 11/07/2024 1:30 PM EDT [facility] MPV 10.0 7.0 - 11.0 FL LAB HEMETOLOGY METHOD 11/07/2024 1:30 PM EDT [facility] NRBC 0.0 <1.0 % LAB HEMETOLOGY METHOD 11/07/2024 1:30 PM EDT [facility] NRBC Absolute 0.00 <0.10 K/mcL LAB HEMETOLOGY METHOD 11/07/2024 1:30 PM EDT [facility] Blood Venous blood specimen / Unknown Venipuncture / Unknown 11/07/2024 9:01 AM EDT 11/07/2024 11:30 AM EDT Cee Gorman MD LAB BLOOD ORDERABLES Fin al Result [facility] [address] [place] [address], documented in this encounter Visit Diagnoses Diagnosis Essential (primary) hypertension Unspecified essential hypertension Anemia, unspecified Chronic kidney disease, unspecified Other disorders of electrolyte and fluid balance, not elsewhere classified documented in this encounter Care Teams Renal Dialysis Technician Relationship Specialty Start Date End Date Cee Gorman MD [address] [place] [id number] PCP - General Family Medicine 10/21/24 documented as of this encounter
--- OUTSIDE RECORDS SUMMARY | 2024-11-30 06:08 | XMS_ITS | Encounter Summary ---
Author Organization [employer] Address [address] [place] [address] Care Team Providers Care Access Lead Name Role Phone Cee Gorman MD Primary Care Provider + Encounter Details Date Type Department Care Team (Late st Contact Info) Description 11/19/[address] [facility] [address] [place] [address] Cee Gorman MD [address] [address] Essential (primary) hypertension; Anemia, unspecified; [...] LAB CHEMISTRY METHOD 11/21/2024 12:10 PM EDT [facility] Potassium 4.2 3.5 - 5.5 mmol/L LAB CHEMISTRY METHOD 11/21/2024 12:10 PM [facility] Chloride 108 96 - 110 mmol/L LAB CHEMISTRY METHOD 11/21/2024 12:10 PM [facility] CO2 26 21 - 32 mmol/L LAB CHEMISTRY METHOD 11/21/2024 12:10 PM [facility] Anion Gap 6 3 - 11 LAB CHEMISTRY METHOD 11/21/2024 12:10 PM [facility] Glucose 85 70 - 100 mg/dL LAB CHEMISTRY METHOD 11/21/2024 12:10 PM [facility] BUN 16 5 - 25 mg/dL LAB CHEMISTRY METHOD 11/21/2024 12:10 PM [facility] Creatinine 0.88 0.70 - 1.30 mg/dL LAB CHEMISTRY METHOD 11/21/2024 12:10 PM [facility] eGFR 89 >=60 mL/min/1. 73m2 LAB CHEMISTRY METHOD 11/21/2024 12:10 PM [facility] Comment:Calculation based on the Chronic Kidney Disease Epidemiology Collaboration (CKD-EPI) equation refit without adjustment for race. BUN/Creatinine Ratio 18.2 LAB CHEMISTRY METHOD 11/21/2024 12:10 PM [facility] Calcium 8.6 8.5 - 10.5 mg/dL LAB CHEMISTRY METHOD 11/21/2024 12:10 PM [facility] AST (SGOT) 34 10 - 42 unit/L LAB CHEMISTRY METHOD 11/21/2024 12:10 PM [facility] ALT (SGPT) 18 10 - 60 unit/L LAB CHEMISTRY METHOD 11/21/2024 12:10 PM [facility] Alkaline Phosphatase 104 42 - 121 unit/L LAB CHEMISTRY METHOD 11/21/2024 12:10 PM [facility] Total Protein 6.7 6.0 - 8.0 g/dL LAB CHEMISTRY METHOD 11/21/2024 12:10 PM EDT [facility] Albumin 3.0(L) 3.2 - 5.0 g/dL LAB CHEMISTRY METHOD 11/21/2024 12:10 PM EDT [facility] Total Bilirubin 0.9 0.0 - 1.4 mg/dL LAB CHEMISTRY METHOD 11/21/2024 12:10 PM EDT [facility] Blood Venous blood specimen / Unknown Venipuncture / Unknown 11/21/2024 8:15 AM EDT 11/21/2024 10:28 AM EDT us Cee Gorman MD LAB BLOOD ORDERABLES Fin al Result [facility] [address] [place] [address], * (ABNORMAL) Complete blood count (11/21/2024 8:15 AM EDT) WBC 10.8 4.8 - 10.8 K/mcL LAB HEMETOLOGY METHOD 11/21/2024 11:16 AM [facility] RBC 3.90(L) 4.50 - 5.50 M/mcL LAB HEMETOLOGY METHOD 11/21/2024 11:16 AM [facility] Hemoglobin 12.1(L) 13.5 - 17.5 g/dL LAB HEMETOLOGY METHOD 11/21/2024 11:16 AM T [facility] Hematocrit 38.1(L) 42.0 - 54.0 % LAB HEMETOLOGY METHOD 11/21/2024 11:16 AM [facility] MCV 98.2(H) 79.0 - 98.0 FL LAB HEMETOLOGY METHOD 11/21/2024 11:16 AM T [facility] MCH 31.2 27.0 - 32.0 pcg LAB HEMETOLOGY METHOD 11/21/2024 11:16 AM EDT [facility] MCHC 31.8(L) 32.0 - 37.0 g/dL LAB HEMETOLOGY METHOD 11/21/2024 11:16 AM EDT [facility] RDW 13.5 11.0 - 15.0 % LAB HEMETOLOGY METHOD 11/21/2024 11:16 AM EDT [facility] Platelets 211 130 - 400 K/mcL LAB HEMETOLOGY METHOD 11/21/2024 11:16 AM EDT [facility] MPV 10.3 7.0 - 11.0 FL LAB HEMETOLOGY METHOD 11/21/2024 11:16 AM EDT [facility] NRBC 0.0 <1.0 % LAB HEMETOLOGY METHOD 11/21/2024 11:16 AM EDT [facility] NRBC Absolute 0.00 <0.10 K/mcL LAB HEMETOLOGY METHOD 11/21/2024 11:16 AM EDT [facility] Blood Venous blood specimen / Unknown Venipuncture / Unknown 11/21/2024 8:15 AM EDT 11/21/2024 10:28 AM EDT Cee Gorman MD LAB BLOOD ORDERABLES Fin al Result [facility] [address] [place] [address], documented in this encounter Visit Diagnoses Diagnosis Essential (primary) hypertension Unspecified essential hypertension Anemia, unspecified Chronic kidney disease, unspecified Other disorders of electrolyte and fluid balance, not elsewhere classified documented in this encounter Care Teams Access Lead Relationship Specialty Start Date End Date Cee Gorman MD [address] [place] [phone] PCP - General Family Medicine 10/21/24 documented as of this encounter
--- OUTSIDE RECORDS SUMMARY | 2024-11-30 06:08 | XMS_ITS | Encounter Summary ---
Author Organization [facility] Address [address] [place] [address] [place] [phone] Phone Care Team Providers Care Melter Loader Name Role Phone Miquel Lo DO Unavailable Miquel Lo DO Primary Care Provider Rikki Shen OT Unavailable Chaparrita Harper RN Unavailable Christopher Dunham MD Unavailable Christy Novak PIPE RECOVERY SPECIALIST Unavailable Chaparrita Nicolas MD Unavailable Jerrod Sanchez DO Unavailable [phone] Encounter Details Date Type Department Care Team (Late st Contact Info) Description 09/12/2019 Ancillary Orders Non-Invasive Cardiology [address] [place] [address] Miquel Lo DO [address] [facility], [address] [place] [address] Dyspnea on exertion Social History Tobacco Use Types Packs/Day Years [...] Description 01/10/2025 2:30 PM EDT Office Visit [facility] Medicine [address] [place] [address] Miquel Lo, DO [address] [facility], [address] [place] [address] [email or web address] 05/18/2025 10:30 AM EST Office Visit [facility] [address] [place] [address] Logan Scott, DO [address] [place] [address] [email or web address] documented as of this encounter Results * NC Stress Result for Nuclear Stress Test (09/12/2019 11:22 AM EDT) Max BP Systolic 118 mmHg [facility] Max BP Diastolic 80 mmHg [facility] Max HR 137 BPM [facility] Resting HR 70 BPM [facility] Resting BP Systolic 118 mmHg [facility] Resting BP Diastolic 80 mmHg [facility] Peak METS 7.0 METS [facility] Peak HR 137 BPM [facility] Anatomical Region Laterality Modality Heart Other 09/12/2019 9:28 AM EDT 09/12/2019 11:21 AM EDT Narrative 09/12/2019 12:03 PM EDT Response to Stress The patient exercised for minutes seconds, achieving 7.0 METS at peak exercise. Baseline blood pressure was 118/80 mmHg, and baseline heart rate was 70 bpm. The patient achieved a peak heart rate of 137 bpm, which is% of their maximum predicted heart rate. REPORT - Pt exercised for 4:57 min on a NAVEEN protocol achieving 7 METS. Test terminated due to fatigue. Baseline resting HR was 71. Max heart rate achieved was 137 (91% MPHR). 1. EKG - Baseline EKG showed normal sinus rhythm. No ischemic EKG changes with exercise. 2. SYMPTOMS - no chest pain 3. EXERCISE PHYSIOLOGY - normal BP response to exercise. Average functional capacity for age. 4. ARRHYTHMIAS - none Conclusion - normal stress test. Nuclear images pending and will be reported separately. Harinder Celaya MAIL COURIER with Dr Watson . Miquel Lo DO CV NM CARDIAC Final Result documented in this encounter Visit Diagnoses Diagnosis Dyspnea on exertion Other dyspnea and respiratory abnormality Dyspnea on exertion Other dyspnea and respiratory abnormality documented in this encounter Additional Health Concerns Infection Onset Date Last Indicated Resolved Time CoV-Risk 12/05/2020 12/05/2020 12/15/2020 1:25 AM EDT Assessment Noted Time PHQ-2 Depression Total Score: 2 08/31/19 20 9:52 AM EDT documented as of this encounter Care Teams Melter Loader Relationship Specialty Start Date End Date Miquel Lo DO [address] [address] [email or web address] PCP - General 04/02/17 Miquel Lo DO [address] [place] [phone] [email or web address] Insurance Assigned Provider 07/04/23 Rikki Shen OT [address] [place] [id number] [email or web address] Qa AnalystDobby Loom Chain Pegger Therapy 07/02/20 07/02/20 Chaparrita Harper, RENALDO [address] [place] [phone] [email or web address] Analyst 06/05/21 Christopher Dunham MD [address] [place] [address] [address] [place] [address] [email or web address] Oncologist Medical Oncology 04/22/22 09/08/24 Christy Novak CNP [address] [place] [id number] [email or web address] Nurse Practitioner Medical Oncology 05/05/22 Chaparrita Nicoals MD [address] [place] [id number] [email or web address] [email or web address] Medicine 06/20/22 Jerrod Sanchez DO [address] [place] [id number] [email or web address] Hematology and Oncology 09/09/24 documented as of this encounter Additional Source Comments The information contained in this document represents components of the legal health record. It is not the complete legal health record.[facility]
--- OUTSIDE RECORDS SUMMARY | 2024-11-30 06:08 | XMS_ITS | Encounter Summary ---
Author Organization [facility] Address [address] [place] [address] [place] [address] Phone Care Team Providers Care Chancellor Name Role Phone Miquel Lo DO Unavailable Miquel Lo DO Primary Care Provider Chaparrita Harper RN Unavailable [phone] Christopher Dunham MD Unavailable Christy Novak CNP Unavailable Chaparrita Nicolas MD Unavailable [phone] Jerrod Sanchez DO Unavailable Reason for Visit * Reason Onset Date Comments Dizziness 09/22/2022 Encounter Details Date Type Department Care Team (Late st Contact Info) Description 09/22/2022 Nurse Triage [facility] [address] [place] [address] Miquel Lo DO 234 [facility] [address] [place] [address] [email or web address] Dizziness Social History Tobacco Use Types Packs/Day Years [...] appointments or from getting medications? No 07/11/2020 Digital Access Answer Date Recorded No 08/25/2022 No 08/25/2022 Reliable internet access at home? Not on file 08/25/2022 Device with a working camera? 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 Pt denied AGUILA, CP, SOB, denied visual changes, denied any weakness, denied fever, congestion, sore throat, or diaphoresis. Pt agreed to appt tomorrow with PCP 445, arrival time 430pm [facility] office. Pt educated on home care instructions, urgent s &s of when to go to ED. Pt verbalized understanding, agreed to plan of care. Nurse Triage Encounter Note Reason for Triage Eren Quintero contacted office for Dizziness Call Disposition Schedule Visit Within 2 Business Days Patient/caregiver understands and will follow disposition: Yes Patient/caregiver understands and will follow care advice: Yes, Plans To Follow Advice Disposition Comments: Protocols used: [id number] Initial Symptom Screening and Assessment IA None Care Advice Given Care Advice Patient/Caregiver understands and will follow care advice?: Yes, plans to follow advice SEE IN OFFICE TODAY: * You need to be examined today. Let me give you an appointment. * IF NO AVAILABLE APPOINTMENTS: You need to be seen in the Urgent Care Center. Go to the one at ED.Go there today. A nearby Urgent Care Center is often a good source of care. Another choice is to goto the Emergency Department. FIRST AID ADVICE FOR SHOCK: Lie down with the feet elevated. FIRST AID ADVICE FOR ANAPHYLAXIS - EPINEPHRINE * If the patient has an epinephrine autoinjector, GIVE IT NOW. Do not delay. * Use the autoinjector on the upper outer thigh. You may give it through clothing if needed. * Give epinephrine first, then call 911. Epinephrine is available in autoinjectors under trade names: EpiPen, EpiPen Jr, and Auvi-Q (Allerject in [place]). Auvi-Q has an audio chip and talks patients and caregivers through injection process. You may give a second (repeat) dose of epinephrine 10-15 minutes later, IF the person with anaphylaxis does not respond to the first dose AND ambulance arrival takes longer than 10 minutes. FIRST AID ADVICE FOR ANAPHYLAXIS - BENADRYL * Give antihistamine by mouth now if able to swallow. * Use Benadryl (diphenhydramine; adult dose 50 mg) or any other available antihistamine. FIRST AID ADVICE FOR HYPOGLYCEMIA -- GLUCOSE ... IF BLOOD GLUCOSE < 70 mg/dL (3.9 mmol/L) or UNKNOWN, for a person who is conscious, able to follow commands, and able to swallow: * Give sugar (15-20 grams glucose) by mouth. * Each of the following has the right amount of sugar: GLUCOSE TABLETS (3-4 tablets; 15-20 gms); glucose paste (15-20 grams); fruit juice or non-diet soda (1/2 cup; 120 ml); milk (1 cup; 240 ml); pre-packaged juice box (1 box); Skittles candy (15); table sugar or honey (3 teaspoons; 15 ml). * Symptoms should begin to improve within 5-10 minutes. Full recovery may take 15-20 minutes. * REPEAT if not better within 15-20 minutes. FIRST AID ADVICE FOR HYPOGLYCEMIA -- GLUCAGON ... IF BLOOD GLUCOSE < 70 mg/dl (3.9 mmol/l) or UNKNOWN (pending EMS arrival). Glucagon is preferred if patient is unconscious or unable to swallow: * If family or caregiver has glucagon for hypoglycemic emergencies AND the caller knows how to use it, encourage the caller to give the glucagon now. * Inject it IM into the upper outer thigh. * Adult dosage is 1 mg. * Glucagon can be used in unconscious patients. * Symptoms should begin to improve within 5-10 minutes. Full recovery may take 10-15 minutes. REASSURANCE AND EDUCATION - DIZZINESS FROM NOT DRINKING ENOUGH LIQUIDS: * Not drinking enough fluids and being a little dehydrated is a common cause of temporary dizziness. * This is worse during hot weather or in hot dry climates. * Here is some care advice that should help. DRINK FLUIDS: * Drink several glasses of fruit juice, other clear fluids or water. * This will improve hydration and blood glucose. * If the weather is hot or you have a fever, make sure the fluids are cold. LIE DOWN AND REST: * Lie down with feet elevated for 1 hour. * This will improve circulation and increase blood flow to the brain. COOL OFF: * If the weather is hot, apply a cold compress to the forehead. * Or take a cool shower or bath. PREVENTION: * Drink extra water and eat some salty foods during exercise or hot weather. * Try to have regular mealtimes. * Get adequate sleep and rest. CALL BACK IF: * After 2 hours of rest and fluids AND still feeling dizzy. * Passes out (faints). * You become worse. REASSURANCE AND EDUCATION - DIZZINESS FROM STANDING: * Standing up suddenly (especially getting out of bed) or prolonged standing in one place are common causes of temporary dizziness. * Not drinking enough fluids or eating enough salt always makes it worse. * Here is some care advice that should help. SIT UP SLOWLY BEFORE STANDING: * In the mornings, sit up for a few minutes before you stand up. That will help your circulation make the adjustment. * If you have to stand up for a long period, contract and relax your leg muscles to help pump the blood back to the heart. * Sit down or lie down if you feel dizzy. DRINK FLUIDS: * Drink several glasses of fruit juice, other clear fluids or water. * This will improve hydration and blood glucose. * If the weather is hot or you have a fever, make sure the fluids are cold. LIE DOWN AND REST: * Lie down with feet elevated for 1 hour. * This will improve circulation and increase blood flow to the brain. COOL OFF: * If the weather is hot, apply a cold compress to the forehead. * Or take a cool shower or bath. PREVENTION: * Drink extra water and eat some salty foods during exercise or hot weather. * Try to have regular mealtimes. * Get adequate sleep and rest. CALL BACK IF: * After 2 hours of rest and fluids AND still feeling dizzy. * Passes out (faints). * You become worse. REASSURANCE AND EDUCATION - DIZZINESS FROM HEAT EXPOSURE: * Hot weather, hot tubs or too much sun exposure are common causes of temporary dizziness. * Not drinking enough fluids always makes it worse. * Here is some care advice that should help. DRINK LIQUIDS: * Drink 1 cup (8 oz; 240 ml) of cold water every 15 minutes for the next 2 hours. Also eat some salty foods (e.g., potato chips or pretzels). * OR drink a sports - rehydration drink (e.g., Gatorade or Powerade), which contains sugar and salt. COOL OFF: * If the weather is hot, apply a cold compress to the forehead. * Or take a cool shower or bath. LIE DOWN AND REST: * Lie down with feet elevated for 1 hour. * This will improve circulation and increase blood flow to the brain. PREVENTION: * Extra water and salty foods during exercise or hot weather * Regular mealtimes and snacks * Adequate sleep and rest. CALL BACK IF: * After 2 hours of rest and fluids AND still feeling dizzy. * Passes out (faints). * You become worse. Patient will call back with additional questions or if symptoms change or worsen Deb Stokes RN Reason for Disposition and Assessment Reason for Disposition ??? MODERATE dizziness (e.g., interferes with normal activities) (Exception: dizziness caused by heat exposure, sudden standing, or poor fluid intake) Protocols used: [id number] * Diann Yeager - 09/22/2022 9:58 AM EDT Patient's spouse calls for an appointment for dizziness.. Please contact patient. Thanks. documented in this encounter Plan of Treatment Upcoming Encounters Date Type Department Care Team (Late st Contact Info) Description 01/10/2025 2:30 PM EDT Office Visit [facility] Medicine [address] [place] [address] Miquel Lo, DO 234 [facility] [address] [place] [address] [email or web address] 05/18/2025 10:30 AM EST Office Visit [facility] Geriatrics [address] [place] [address] Logan Scott, DO [address] [place] [address] [email or web address] documented as of this encounter Goals Goal Patient Goal Type Associated Problems Recent Progress Patient-Stated? Author Adhere to prescribed treatment plan Care Plan Chronic Condition Self-Managemen t Chaparrita Coleman, RN Increase participation in self-management activities Care Plan Chronic Condition Self-Managemen t Chaparrita Coleman, RN Participation in sick day plan for condition Care Plan Chronic Condition Self-Managemen t Chaparrita Coleman, RN Participation in telemedicine activities to monitor condition Care Plan Chronic Condition Self-Managemen t Chaparrita Coleman, RN Understand symptoms and warning signs to report to Provider Care Plan Chronic Condition Self-Managemen t No Chaparrita Harper, RN Improved control over condition Care Plan Chronic Condition Self-Managemen t Chaparrita Coleman, RN No unplanned hospitalizations for condition Care [...] Chronic Condition Self-Management 07/09/2021 Assessment Noted Time PHQ-9 Depression Total Score: 10 023 12:56 PM EST PHQ-2 Depression Total Score: 2 07/04/19 23 1:36 PM EDT documented as of this encounter Care Teams Chancellor Relationship Specialty Start Date End Date Miquel Lo DO [address] [place] [phone] [email or web address] PCP - General 04/02/17 Miquel Lo DO [address] [place] [address] [email or web address] Insurance Assigned Provider 07/04/23 Chaparrita Harper RN [address] [place] [address] [email or web address] [email or web address] Hospital Director 06/05/21 Christopher Dunham MD [address] [place] [address] [address] [address] [email or web address] Primary Oncologist Medical Oncology 04/22/22 09/08/24 Christy Novak CNP [address] [place] [address] [email or web address] Nurse Practitioner Medical Oncology 05/05/22 Chaparrita Nicolas MD [address] [place] [address] [email or web address] Geriatric Medicine 06/20/22 Jerrod Sanchez DO [address] [place] [address] [email or web address] Hematology and Oncology 09/09/24 documented as of this encounter Additional Source Comments The information contained in this document represents components of the legal health record. It is not the complete legal health record.[facility]
--- OUTSIDE RECORDS SUMMARY | 2024-11-30 06:08 | XMS_ITS | Encounter Summary ---
Author Organization [facility] Address [address] [place] [address] [place] [address] Phone Care Team Providers Care Commercial Teller Name Role Phone Miquel Lo DO Unavailable Miquel Lo DO Primary Care Provider Chaparrita Harper RN Unavailable Christopher Dunham MD Unavailable Christy Novak [employer]ARD COATING MACHINE OPERATOR Unavailable Chaparrita Nciolas MD Unavailable [phone] Jerrod Sanchez DO Unavailable [phone] Encounter Details Date Type Department Care Team (Late st Contact Info) Description 07/02/2023 Procedure Pass [facility], [address] [place] [address] Social History Tobacco Use Types Packs/Day Years [...] f ile documented as of this encounter Plan of Treatment Upcoming Encounters Date Type Department Care Team (Late st Contact Info) Description 01/10/2025 2:30 PM EDT Office Visit [facility] Medicine [address] [place] [address] Miquel Lo, DO 234 [facility] [address] [place] [address] 05/18/2025 10:30 AM EST Office Visit [facility] Geriatrics [address] [place] [address] [place] [address] Logan Scott, DO [address] [place] [address] documented as of this encounter Goals Goal Patient Goal Type Associated Problems Recent Progress Patient-Stated? Author Adhere to prescribed treatment plan Care Plan Chronic Condition Self-Managemen t No Chaparrita Harper RN Increase participation in self-management activities Care Plan Chronic Condition Self-Managemen t No Chaparrita Harper RN Participation in sick day plan for condition Care Plan Chronic Condition Self-Managemen t No Chaparrita Harper RN Participation in telemedicine activities to monitor condition Care Plan Chronic Condition Self-Managemen t No Chaparrita Harper RN Understand symptoms and warning signs to report to Provider Care Plan Chronic Condition Self-Managemen t No Chaparrita Harper RN Improved control over condition Care Plan Chronic Condition Self-Managemen t No Chaparrita Harper RN No unplanned hospitalizations for condition Care [...] RN Note: Patient Agrees with goal priority: {yes/no:[id number]} Patient Self-Management activities for this goal: {pick list:[id number]} Task/Interventions: Increase participation in self-management activities Care Plan Chronic Condition Self-Managemen t No Chaparrita Harper RN Note: Patient Agrees with goal priority: {yes/no:49919169} Patient Self-Management activities for this goal: {pick list:[id number]} Task/Interventions: Participation in sick day plan for condition Care Plan Chronic Condition Self-Managemen t No Chaparrita Harper RN Note: Patient Agrees with goal priority: {yes/no:24093254} Patient Self-Management activities for this goal: {pick list:98071811} Task/Interventions: Participation in telemedicine activities to monitor condition Care Plan Chronic Condition Self-Managemen t No Chaparrita Harper RN Note: Patient Agrees with goal priority: {yes/no:71901829} Patient Self-Management activities for this goal: {pick list:78429641} Task/Interventions: Understand symptoms and warning signs to report to Provider Care Plan Chronic Condition Self-Managemen t No Chaparrita Harper RN Note: Patient Agrees with goal priority: {yes/no:18971042} Patient Self-Management activities for this goal: {pick list:86094957} Task/Interventions: Improved control over condition Care Plan Chronic Condition Self-Managemen t No Chaparrita Harper RN Note: Patient Agrees with goal priority: {yes/no:23790636} Patient Self-Management activities for this goal: {pick list:32602060} Task/Interventions: No unplanned hospitalizations for condition Care Plan Chronic Condition Self-Managemen t No Chaparrita Harper RN Note: Patient Agrees with goal priority: {yes/no:97247771} Patient Self-Management activities for this goal: {pick list:35141546} Task/Interventions: Able to maintain current level of functioning Care Plan Chronic Condition Self-Managemen t No Chaparrita Harper RN Note: Patient Agrees with goal priority: {yes/no:67229331} Patient Self-Management activities for this goal: {pick list:31586632} Task/Interventions: Avoid environmental and psychosocial exposures to triggers that worsen condition Care Plan Chronic Condition Self-Managemen t No Chaparrita Harper RN Note: Patient Agrees with goal priority: {yes/no:52479556} Patient Self-Management activities for this goal: {pick list:63006226} Task/Interventions: documented as of this encounter Visit Diagnoses Not on filedocumented in this encounter Additional Health Concerns Active Problems Noted Date Diagnosed Date Chronic Condition Self-Management 07/09/2021 Chronic Condition Self-Management 01/20/2023 Assessment Noted Time PHQ-9 Depression Total Score: 5 01/20/20 10:43 AM EDT PHQ-2 Depression Total Score: 2 01/20/20 10:43 AM EDT documented as of this encounter Care Teams Commercial Teller Relationship Specialty Start Date End Date Miquel Lo DO 234 [facility] [address] [place] [address] [email or web address] PCP - General 04/02/17 Miquel Lo DO 234 [facility] [address] [place] [address] [email or web address] Insurance Assigned Provider 07/04/23 Chaparrita Harper RN [address] [place] [address] [email or web address] Chief Cruiser 06/05/21 Christopher Dunham MD [address] [place] [address] [address] [address] [email or web address] Primary Oncologist Medical Oncology 04/22/22 09/08/24 Christy Novak CNP [address] [place] [address] [email or web address] Nurse Practitioner Medical Oncology 05/05/22 Chaparrita Nicolas MD [address] [place] [address] [email or web address] Geriatric Medicine 06/20/22 Jerrod Sanchez DO [address] [place] [address] [email or web address] Hematology and Oncology 09/09/24 documented as of this encounter Additional Source Comments The information contained in this document represents components of the legal health record. It is not the complete legal health record.[facility]
--- OUTSIDE RECORDS SUMMARY | 2024-11-30 06:08 | XMS_ITS | Encounter Summary ---
Author Organization [facility] Address [address] [place] [address] Care Team Providers Care Tire Fixer Name Role Phone Cee Gomran MD Primary Care Provider + Encounter Details Date Type Department Care Team (Late st Contact Info) Description 11/03/2024 Lab Requisition [facility] - Main Lab [address] [place] [address] Cee Gorman MD [address] [address] Traumatic subdural hemorrhage without loss of consciousness, subsequent encounter Social History Tobacco Use Types Packs/Day Years [...] Associated Diagnosis Comments COMPLETE BLOOD COUNT Routine 11/03/2024 5:55 AM EDT Traumatic subdural hemorrhage without loss of consciousness, subsequent encounter BASIC METABOLIC PANEL Routine 11/03/2024 5:55 AM EDT Traumatic subdural hemorrhage without loss of consciousness, subsequent encounter documented in this encounter Results * (ABNORMAL) Basic metabolic panel (11/03/2024 5:55 AM EDT) Sodium 140 133 - 145 mmol/L LAB CHEMISTRY METHOD 11/03/2024 10:16 AM EDT [facility] Potassium 3.8 3.5 - 5.5 mmol/L LAB CHEMISTRY METHOD 11/03/2024 10:16 AM EDT [facility] Chloride 109 96 - 110 mmol/L LAB CHEMISTRY METHOD 11/03/2024 10:16 AM [facility] CO2 27 21 - 32 mmol/L LAB CHEMISTRY METHOD 11/03/2024 10:16 AM [facility] Anion Gap 4 3 - 11 LAB CHEMISTRY METHOD 11/03/2024 10:16 AM [facility] Glucose 64(L) 70 - 100 mg/dL LAB CHEMISTRY METHOD 11/03/2024 10:16 AM [facility] BUN 12 5 - 25 mg/dL LAB CHEMISTRY METHOD 11/03/2024 10:16 AM [facility] Creatinine 0.88 0.70 - 1.30 mg/dL LAB CHEMISTRY METHOD 11/03/2024 10:16 AM [facility] eGFR 89 >=60 mL/min/1. 73m2 LAB CHEMISTRY METHOD 11/03/2024 10:16 AM [facility] Comment:Calculation based on the Chronic Kidney Disease Epidemiology Collaboration (CKD-EPI) equation refit without adjustment for race. BUN/Creatinine Ratio 13.6 LAB CHEMISTRY METHOD 11/03/2024 10:16 AM [facility] Calcium 8.2(L) 8.5 - 10.5 mg/dL LAB CHEMISTRY METHOD 11/03/2024 10:16 AM [facility] Blood Venous blood specimen / Unknown Venipuncture / Unknown 11/03/2024 5:55 AM EDT 11/03/2024 9:04 AM EDT us Cee Gorman MD LAB BLOOD ORDERABLES Fin al Result [facility] [address] [place] [address], * (ABNORMAL) Complete blood count (11/03/2024 5:55 AM EDT) WBC 7.4 4.8 - 10.8 K/mcL LAB HEMETOLOGY METHOD 11/03/2024 9:36 AM [facility] RBC 3.60(L) 4.50 - 5.50 M/mcL LAB HEMETOLOGY METHOD 11/03/2024 9:36 AM [facility] Hemoglobin 11.1(L) 13.5 - 17.5 g/dL LAB HEMETOLOGY METHOD 11/03/2024 9:36 AM [facility] Hematocrit 35.1(L) 42.0 - 54.0 % LAB HEMETOLOGY METHOD 11/03/2024 9:36 AM [facility] MCV 98.6(H) 79.0 - 98.0 FL LAB HEMETOLOGY METHOD 11/03/2024 9:36 AM [facility] MCH 31.2 27.0 - 32.0 pcg LAB HEMETOLOGY METHOD 11/03/2024 9:36 AM [facility] MCHC 31.6(L) 32.0 - 37.0 g/dL LAB HEMETOLOGY METHOD 11/03/2024 9:36 AM [facility] RDW 13.7 11.0 - 15.0 % LAB HEMETOLOGY METHOD 11/03/2024 9:36 AM [facility] Platelets 204 130 - 400 K/mcL LAB HEMETOLOGY METHOD 11/03/2024 9:36 AM [facility] MPV 10.2 7.0 - 11.0 FL LAB HEMETOLOGY METHOD 11/03/2024 9:36 AM [facility] NRBC 0.0 <1.0 % LAB HEMETOLOGY METHOD 11/03/2024 9:36 AM [facility] NRBC Absolute 0.00 <0.10 K/mcL LAB HEMETOLOGY METHOD 11/03/2024 9:36 AM EDT [facility] Blood Venous blood specimen / Unknown Venipuncture / Unknown 11/03/2024 5:55 AM EDT 11/03/2024 9:04 AM EDT us Cee Gorman MD LAB BLOOD ORDERABLES Fin al Result [facility] [address] [place] [address], documented in this encounter Visit Diagnoses Diagnosis Traumatic subdural hemorrhage without loss of consciousness, subsequent encounter documented in this encounter Care Teams Tire Fixer Relationship Specialty Start Date End Date Cee Gorman MD [address] [place] [address] PCP - General Family Medicine 10/21/24 documented as of this encounter
--- OUTSIDE RECORDS SUMMARY | 2024-11-30 06:08 | XMS_ITS | Encounter Summary ---
Author Organization [facility] Address [address] [place] [address] [place] [address] Phone Care Team Providers Care Carbide Tool Die Maker Name Role Phone Miquel Lo DO Unavailable Miquel Lo DO Primary Care Provider Chaparrita Harper RN Unavailable [phone] Christopher Dunham MD Unavailable [phone] Christy Novak CNP Unavailable Chaparrita Nicolas MD Unavailable [phone] Jerrod Sanchez DO Unavailable [phone] Encounter Details Date Type Department Care Team (Late st Contact Info) Description 11/02/2020 Procedure Pass [facility] [address] [place] [address] Social History Tobacco Use Types Packs/Day Years Used Date Smoking Tobacco: Every Day Smokeless Tobacco: Never Child or Family Care Answer Date Record ed Do you have problems with on e of the following making it difficult for you to work, study, or receive health care? No 07/11/2020 Education Answer Date Recorded Are you interested in help w ith more adult education (for example, completing high school, GED, job training, learning the [place] language, technical skills, or developing parenting skills)? [...] Date of Assessment Author No Risk Indicated 11/02/2020 6:17 PM EDT Anne Chavira RN * [place] Suicide Severity Rating Scale (Screener/Recent Self-Report) Question Answer Date of Assessment Author 1. Wish to be (Past 1 Month) No 11/02/2020 6:17 PM EDT Anne Chavira, RENALDO 2. Non-Specific Active Suicidal Thoughts (Past 1 Month) No 11/02/2020 6:17 PM EDT Anne Chavira, RENALDO 6. Suicidal Behavior (Lifetime) No 11/02/2020 6:17 PM EDT Anne Chavira, RENALDO documented as of this encounter Plan of Treatment Upcoming Encounters Date Type Department Care Team (Late st Contact Info) Description 01/10/2025 2:30 PM EDT Office Visit [facility] Medicine [address] [place] [address] Miquel Lo, DO 234 [facility], [address] [place] [address] 05/18/2025 10:30 AM EST Office Visit [facility] Geriatrics [address] [place] [address] [place] [address] Logan Scott, DO [address] [place] [address] [email or web address] documented as of this encounter Visit Diagnoses Not on filedocumented in this encounter Additional Health Concerns Infection Onset Date Last Indicated Resolved Time CoV-Risk 12/05/2020 12/05/2020 12/15/2020 1:25 AM EDT Assessment Noted Time PHQ-2 Depression Total Score: 2 08/31/19 20 9:52 AM EDT documented as of this encounter Care Teams Carbide Tool Die Maker Relationship Specialty Start Date End Date Miquel Lo DO 234 [facility] 7 [place] [address] [email or web address] PCP - General 04/02/17 Miquel Lo DO 234 [facility] 7 [place] [address] [email or web address] Insurance Assigned Provider 07/04/23 Chaparrita Harper, RN [address] [place] [address] [email or web address] Gear Lapper 06/05/21 Christopher Dunham MD [address] [place] [address] [email or web address] Primary Oncologist Medical Oncology 04/22/22 09/08/24 Christy Novak CNP [address] [place] [address] [email or web address] Nurse Practitioner Medical Oncology 05/05/22 Chaparrita Nicolas MD 30 [place] [address] [email or web address] Geriatric Medicine 06/20/22 Jerrod Sanchez DO [address] [place] [address] [email or web address] Hematology and Oncology 09/09/24 documented as of this encounter Additional Source Comments The information contained in this document represents components of the legal health record. It is not the complete legal health record.[facility]
--- OUTSIDE RECORDS SUMMARY | 2024-11-30 06:08 | XMS_ITS | Encounter Summary ---
Author Organization [facility] Address [address] [place] [address] Care Team Providers Care Brick Setter Operator Name Role Phone Cee Gorman MD Primary Care Provider + Encounter Details Date Type Department Care Team (Late st Contact Info) Description 10/30/2024 Lab Requisition [facility] - Main Lab [address] [place] [address] Cee Gorman MD [address] [address] Essential (primary) hypertension; Anemia, unspecified; Chronic kidney [...] Associated Diagnosis Comments COMPLETE BLOOD COUNT Routine 10/31/2024 6:22 AM EDT Essential (primary) hypertension Anemia, unspecified Chronic kidney disease, unspecified Other disorders of electrolyte and fluid balance, not elsewhere classified COMPREHENSIVE METABOLIC PANEL Routine 10/31/2024 6:22 AM EDT Essential (primary) hypertension Anemia, unspecified Chronic kidney disease, unspecified Other disorders of electrolyte and fluid balance, not elsewhere classified documented in this encounter Results * (ABNORMAL) Comprehensive metabolic panel (10/31/2024 6:22 AM EDT) Sodium 139 133 - 145 mmol/L LAB CHEMISTRY METHOD 10/31/2024 1:17 PM EDT [facility] Potassium 3.6 3.5 - 5.5 mmol/L LAB CHEMISTRY METHOD 10/31/2024 1:17 PM [facility] Chloride 106 96 - 110 mmol/L LAB CHEMISTRY METHOD 10/31/2024 1:17 PM [facility] CO2 28 21 - 32 mmol/L LAB CHEMISTRY METHOD 10/31/2024 1:17 PM [facility] Anion Gap 5 3 - 11 LAB CHEMISTRY METHOD 10/31/2024 1:17 PM [facility] Glucose 75 70 - 100 mg/dL LAB CHEMISTRY METHOD 10/31/2024 1:17 PM [facility] BUN 12 5 - 25 mg/dL LAB CHEMISTRY METHOD 10/31/2024 1:17 PM [facility] Creatinine 0.96 0.70 - 1.30 mg/dL LAB CHEMISTRY METHOD 10/31/2024 1:17 PM [facility] eGFR 81 >=60 mL/min/1. 73m2 LAB CHEMISTRY METHOD 10/31/2024 1:17 PM [facility] Comment:Calculation based on the Chronic Kidney Disease Epidemiology Collaboration (CKD-EPI) equation refit without adjustment for race. BUN/Creatinine Ratio 12.5 LAB CHEMISTRY METHOD 10/31/2024 1:17 PM [facility] Calcium 8.6 8.5 - 10.5 mg/dL LAB CHEMISTRY METHOD 10/31/2024 1:17 PM [facility] AST (SGOT) 13 10 - 42 unit/L LAB CHEMISTRY METHOD 10/31/2024 1:17 PM [facility] ALT (SGPT) 24 10 - 60 unit/L LAB CHEMISTRY METHOD 10/31/2024 1:17 PM [facility] Alkaline Phosphatase 90 42 - 121 unit/L LAB CHEMISTRY METHOD 10/31/2024 1:17 PM [facility] Total Protein 5.7(L) 6.0 - 8.0 g/dL LAB CHEMISTRY METHOD 10/31/2024 1:17 PM EDT [facility] Albumin 2.4(L) 3.2 - 5.0 g/dL LAB CHEMISTRY METHOD 10/31/2024 1:17 PM EDT [facility] Total Bilirubin 0.5 0.0 - 1.4 mg/dL LAB CHEMISTRY METHOD 10/31/2024 1:17 PM EDT [facility] Blood Venous blood specimen / Unknown Venipuncture / Unknown 10/31/2024 6:22 AM EDT 10/31/2024 11:09 AM EDT us Cee Gorman MD LAB BLOOD ORDERABLES Fin al Result [facility] [address] [place] [address], * (ABNORMAL) Complete blood count (10/31/2024 6:22 AM EDT) WBC 6.5 4.8 - 10.8 K/mcL LAB HEMETOLOGY METHOD 10/31/2024 12:19 PM [facility] RBC 3.40(L) 4.50 - 5.50 M/mcL LAB HEMETOLOGY METHOD 10/31/2024 12:19 PM [facility] Hemoglobin 10.8(L) 13.5 - 17.5 g/dL LAB HEMETOLOGY METHOD 10/31/2024 12:19 PM [facility] Hematocrit 33.9(L) 42.0 - 54.0 % LAB HEMETOLOGY METHOD 10/31/2024 12:19 PM [facility] MCV 99.7(H) 79.0 - 98.0 FL LAB HEMETOLOGY METHOD 10/31/2024 12:19 PM [facility] MCH 31.8 27.0 - 32.0 pcg LAB HEMETOLOGY METHOD 10/31/2024 12:19 PM EDT [facility] MCHC 31.9(L) 32.0 - 37.0 g/dL LAB HEMETOLOGY METHOD 10/31/2024 12:19 PM EDT [facility] RDW 14.0 11.0 - 15.0 % LAB HEMETOLOGY METHOD 10/31/2024 12:19 PM EDT [facility] Platelets 167 130 - 400 K/mcL LAB HEMETOLOGY METHOD 10/31/2024 12:19 PM EDT [facility] MPV 10.6 7.0 - 11.0 FL LAB HEMETOLOGY METHOD 10/31/2024 12:19 PM EDT [facility] NRBC 0.0 <1.0 % LAB HEMETOLOGY METHOD 10/31/2024 12:19 PM EDT [facility] NRBC Absolute 0.00 <0.10 K/mcL LAB HEMETOLOGY METHOD 10/31/2024 12:19 PM EDT [facility] Blood Venous blood specimen / Unknown Venipuncture / Unknown 10/31/2024 6:22 AM EDT 10/31/2024 11:09 AM EDT us Cee Gorman MD LAB BLOOD ORDERABLES Fin al Result [facility] [address] [place] [address], documented in this encounter Visit Diagnoses Diagnosis Essential (primary) hypertension Unspecified essential hypertension Anemia, unspecified Chronic kidney disease, unspecified Other disorders of electrolyte and fluid balance, not elsewhere classified documented in this encounter Care Teams Brick Setter Operator Relationship Specialty Start Date End Date Cee Gorman MD [address] [place] [address] PCP - General Family Medicine 10/21/24 documented as of this encounter
--- OUTSIDE RECORDS SUMMARY | 2024-11-30 06:08 | XMS_ITS | Encounter Summary ---
Author Organization [facility] Address [address] [place] [address] [place] [address] Phone Care Team Providers Care Glue Clamp Operator Name Role Phone Miquel Lo DO Unavailable Miquel Lo DO Primary Care Provider Rikki Shen OT Unavailable Chaparrita Harper RN Unavailable Christopher Dunham MD Unavailable Christy Novak AUTOMATIC TIRE TESTER Unavailable Chaparrita Nicolas MD Unavailable Jerrod Sanchez DO Unavailable [phone] Encounter Details Date Type Department Care Team (Late st Contact Info) Description 06/30/2020 Procedure Pass [facility], Ct Scan - [address] [address] Social History Tobacco Use Types Packs/Day Years [...] 11:16 PM EDT Natividad Rivera RN * [place] Suicide Severity Rating Scale (Screener/Recent Self-Report) Question Answer Date of Assessment Author 1. Wish to be (Past 1 Month) No 021 11:16 PM EDT Natividad Rivera RN 2. Non-Specific Active Suici cheryl Thoughts (Past 1 Month) No 06/30/2020 11:16 PM EDT Suzi Rivera RN 6. Suicidal Behavior (Lifetime) No 11:16 PM EDT Natividad Rivera RN documented as of this encounter Plan of Treatment Upcoming Encounters Date Type Department Care Team (Late st Contact Info) Description 01/10/2025 2:30 PM EDT Office Visit [facility] Medicine [address] [place] [address] Miquel Lo DO [address] [address] [email or web address] 05/18/2025 10:30 AM EST Office Visit [facility] Geriatrics [address] [place] [address] Logan Scott DO [address] [place] [address] [email or web address] documented as of this encounter Visit Diagnoses Not on filedocumented in this encounter Additional Health Concerns Infection Onset Date Last Indicated Resolved Time CoV-Risk 12/05/2020 12/05/2020 12/15/2020 1:25 AM EDT Assessment Noted Time PHQ-2 Depression Total Score: 2 08/31/19 20 9:52 AM EDT documented as of this encounter Care Teams Glue Clamp Operator Relationship Specialty Start Date End Date Miquel Lo DO [address] [address] [email or web address] PCP - General 04/02/17 Miquel Lo DO [address] [address] [email or web address] Insurance Assigned Provider 07/04/23 Rikki Shen OT [address] [place] [address] [email or web address] [email or web address] Plan ManagerGuidance Director Therapy 07/02/20 07/02/20 Chaparrita Harper, RENALDO [address] [place] [address] [email or web address] iCMP Plan Manager 06/05/21 Christopher Dunham MD [address] [place] [address] [email or web address] Primary Oncologist Medical Oncology 04/22/22 09/08/24 Christy Novak CNP [address] [place] [address] [email or web address] Nurse Practitioner Medical Oncology 05/05/22 Chaparrita Nicolas MD [address] [place] [address] [email or web address] Geriatric Medicine 06/20/22 Jerrod Sanchez DO [address] [place] [address] [email or web address] Hematology and Oncology 09/09/24 documented as of this encounter Additional Source Comments The information contained in this document represents components of the legal health record. It is not the complete legal health record.[facility]
--- OUTSIDE RECORDS SUMMARY | 2024-11-30 06:08 | XMS_ITS | Encounter Summary ---
Author Organization [employer] Address [address] [place] [address] Care Team Providers Care Bridge Rigger Name Role Phone Cee Gorman MD Primary Care Provider + Encounter Details Date Type Department Care Team (Late st Contact Info) Description 11/25/2024 Lab Requisition [facility] - Main Lab 299 [facility] [place] [address] Cee Gorman MD [address] [address] Essential (primary) hypertension; Anemia, unspecified; Chronic kidney [...] on file documented as of this encounter Visit Diagnoses Diagnosis Essential (primary) hypertension Unspecified essential hypertension Anemia, unspecified Chronic kidney disease, unspecified Other disorders of electrolyte and fluid balance, not elsewhere classified documented in this encounter Care Teams Bridge Rigger Relationship Specialty Start Date End Date Cee Gorman MD [address] [address] PCP - General Family Medicine 10/21/24 documented as of this encounter
--- OUTSIDE RECORDS SUMMARY | 2024-11-30 06:08 | XMS_ITS | Encounter Summary ---
Author Organization [facility] Address [address] [place] [address] [place] [address] Phone Care Team Providers Care Slip Cover Estimator Name Role Phone Miquel Lo DO Unavailable Miquel Lo DO Primary Care Provider [phone] Chaparrita Harper RN Unavailable Christy Novak TAPER OPERATOR Unavailable Chaparrita Nicolas MD Unavailable Jerrod Sanchez DO Unavailable [phone] Reason for Referral * MRI/CAT Scan - Closed Specialty Diagnoses / Procedures Referred By Contac t Referred To Contact Radiology Procedures Outside CT Imaging Report Only [address] [address] Phone: tel: fax: Referral ID Status Reason Start Date Expiration Date Visits Re quested Visits Authorized [id number] Closed 11/21/2024 1 1 * MRI/CAT Scan - Closed Specialty Diagnoses / Procedures Referred By Contac t Referred To Contact Radiology Procedures Outside CT Spine Report Only [address] [address] Phone: tel: fax: Referral ID Status Reason Start Date Expiration Date Visits Re quested Visits Authorized [id number] Closed 11/21/2024 1 1 Encounter Details Date Type Department Care Team (Late st Contact Info) Description 11/21/2024 Orders Only [facility] Medicine [address] [facility] [place] [address] ProviderCandis MD [address] [place] [address] Social History Tobacco Use Types Packs/Day Years Used Date Smoking Tobacco: Every Day Cigarettes 0.5 65.7 Started: 1957 Smokeless Tobacco: Never Alcohol Use Standard Drinks/Week [...] your housing situation today? I have gomez sing 09/10/2024 How many times have you move [...] Description 01/10/2025 2:30 PM EDT Office Visit [address] [address] Miquel Lo, 234 [facility] 7 [place] [address] [email or web address] 05/18/2025 10:30 AM EST Office Visit [facility] Geriatrics [address] [place] [address] Logan Scott, DO 22 [place] [address] [email or web address] documented as of this encounter Goals Goal Patient Goal Type Associated Problems Recent Progress Patient-Stated? Author Adhere to prescribed treatment plan Care Plan Chronic Condition Self-Managemen t No Chaparrita Harper, RN Increase participation in self-management activities Care [...] RN Note: Patient Agrees with goal priority: {yes/no:41526814} Patient Self-Management activities for this goal: {pick list:23540575} Task/Interventions: Increase participation in self-management activities Care Plan Chronic Condition Self-Managemen t No Chaparrita Harper RN Note: Patient Agrees with goal priority: {yes/no:20322246} Patient Self-Management activities for this goal: {pick list:55615659} Task/Interventions: Participation in sick day plan for condition Care Plan Chronic Condition Self-Managemen t No Chaparrita Harper RN Note: Patient Agrees with goal priority: {yes/no:19334437} Patient Self-Management activities for this goal: {pick list:00418529} Task/Interventions: Participation in telemedicine activities to monitor condition Care Plan Chronic Condition Self-Managemen t No Chaparrita Harper RN Note: Patient Agrees with goal priority: {yes/no:21212715} Patient Self-Management activities for this goal: {pick list:24257356} Task/Interventions: Understand symptoms and warning signs to report to Provider Care Plan Chronic Condition Self-Managemen t No Chaparrita Harper RN Note: Patient Agrees with goal priority: {yes/no:99598090} Patient Self-Management activities for this goal: {pick list:08653326} Task/Interventions: Improved control over condition Care Plan Chronic Condition Self-Managemen t No Chaparrita Harper RN Note: Patient Agrees with goal priority: {yes/no:43689638} Patient Self-Management activities for this goal: {pick list:09218659} Task/Interventions: No unplanned hospitalizations for condition Care Plan Chronic Condition Self-Managemen t No Chaparrita Harper RN Note: Patient Agrees with goal priority: {yes/no:75457790} Patient Self-Management activities for this goal: {pick list:81720282} Task/Interventions: Able to maintain current level of functioning Care Plan Chronic Condition Self-Managemen t No Chaparrita Harper RN Note: Patient Agrees with goal priority: {yes/no:95779894} Patient Self-Management activities for this goal: {pick list:15407165} Task/Interventions: Avoid environmental and psychosocial exposures to triggers that worsen condition Care Plan Chronic Condition Self-Managemen t No Chaparrita Harper RN Note: Patient Agrees with goal priority: {yes/no:98398918} Patient Self-Management activities for this goal: {pick list:92398307} Task/Interventions: documented as of this encounter Procedures Procedure Name Priority Date/Time Associated Diagnosis Comments OUTSIDE XR IMAGING REPORT ONLY Routine 11/21/2024 1:58 PM EDT OUTSIDE XR IMAGING REPORT ONLY Routine 11/21/2024 1:[address] IMAGING REPORT ONLY Routine 11/21/2024 1:[address] SPINE REPORT ONLY Routine 11/21/2024 1:08 PM EDT documented in this encounter Results * Outside XR Imaging Report Only (11/21/2024 1:58 PM EDT) us Historical Provider MD LEBRON XR CHEST Final Res ult * Outside XR Imaging Report Only (11/21/2024 1:10 PM EDT) us Historical Provider IMAura XR CHEST Final Res ult * Outside CT Imaging Report Only (11/21/2024 1:09 PM EDT) us Historical Provider IMG CT Final Res ult * Outside CT Spine Report Only (11/21/2024 1:08 PM EDT) Historical Provider MD LEBRON CT SPINE Final Res ult documented in this encounter Visit Diagnoses Not on filedocumented in this encounter Additional Health Concerns Active Problems Noted Date Diagnosed Date Chronic Condition Self-Management 07/09/2021 Chronic Condition Self-Management 01/20/2023 Assessment Noted Time PHQ-9 Depression Total Score: 9 06/03/19 25 6:33 PM EST PHQ-2 Depression Total Score: 4 06/03/19 25 6:33 PM EST documented as of this encounter Care Teams Slip Cover Estimator Relationship Specialty Start Date End Date Miquel Lo DO [address] [address] [email or web address] PCP - General 04/02/17 Miquel Lo DO [address] [place] [address] 7 [place] [address] Insurance Assigned Provider 07/04/23 Chaparrita Harper, RN [address] [place] [phone] iCMP Stator Winder 06/05/21 Christy Novak CNP [address] [place] [address] [email or web address] Nurse Practitioner Medical Oncology 05/05/22 Chaparrita Nicolas MD [address] [place] [address] [email or web address] Geriatric Medicine 06/20/22 Jerrod Sanchez DO [address] [place] [address] [email or web address] Hematology and Oncology 09/09/24 documented as of this encounter Additional Source Comments The information contained in this document represents components of the legal health record. It is not the complete legal health record.[facility]
--- OUTSIDE RECORDS SUMMARY | 2024-11-30 06:08 | XMS_ITS | Encounter Summary ---
Author Organization [employer] Address [address] [place] [address] Care Team Providers Care Photograph Printer Name Role Phone Cee Gorman MD Primary Care Provider + Encounter Details Date Type Department Care Team (Late st Contact Info) Description 10/21/2024 Lab Requisition [facility] - Main Lab [address] [facility] [place] [address] Cee Gorman MD [address] [address] Essential (primary) hypertension; Anemia, unspecified; [...] Associated Diagnosis Comments COMPLETE BLOOD COUNT Routine 10/21/2024 4:40 AM EDT Essential (primary) hypertension Anemia, unspecified Chronic kidney disease, unspecified Other disorders of electrolyte and fluid balance, not elsewhere classified MAGNESIUM Routine 10/21/2024 4:40 AM EDT Essential (primary) hypertension Anemia, unspecified Chronic kidney disease, unspecified Other disorders of electrolyte and fluid balance, not elsewhere classified COMPREHENSIVE METABOLIC PANEL Routine 10/21/2024 4:40 AM EDT Essential (primary) hypertension Anemia, unspecified Chronic kidney disease, unspecified Other disorders of electrolyte and fluid balance, not elsewhere classified documented in this encounter Results * Magnesium (10/21/2024 4:40 AM EDT) Pathologist [facility] Magnesium 2.1 1.9 - 2.6 mg/dL LAB CHEMISTRY METHOD 10/21/2024 10:24 AM [facility] Blood Venous blood specimen / Unknown Venipuncture / Unknown 10/21/2024 4:40 AM EDT 10/21/2024 9:27 AM EDT us Cee Gorman MD LAB BLOOD ORDERABLES Fin al Result [facility] [address] [place] [address], * (ABNORMAL) Comprehensive metabolic panel (10/21/2024 4:40 AM EDT) [facility] Sodium 141 133 - 145 mmol/L LAB CHEMISTRY METHOD 10/21/2024 10:24 AM [facility] Potassium 4.2 3.5 - 5.5 mmol/L LAB CHEMISTRY METHOD 10/21/2024 10:24 AM [facility] Chloride 108 96 - 110 mmol/L LAB CHEMISTRY METHOD 10/21/2024 10:24 AM [facility] CO2 28 21 - 32 mmol/L LAB CHEMISTRY METHOD 10/21/2024 10:24 AM [facility] Anion Gap 5 3 - 11 LAB CHEMISTRY METHOD 10/21/2024 10:24 AM [facility] Glucose 64(L) 70 - 100 mg/dL LAB CHEMISTRY METHOD 10/21/2024 10:24 AM [facility] BUN 12 5 - 25 mg/dL LAB CHEMISTRY METHOD 10/21/2024 10:24 AM [facility] Creatinine 0.99 0.70 - 1.30 mg/dL LAB CHEMISTRY METHOD 10/21/2024 10:24 AM [facility] eGFR 78 >=60 mL/min/1. 73m2 LAB CHEMISTRY METHOD 10/21/2024 10:24 AM [facility] Comment:Calculation based on the Chronic Kidney Disease Epidemiology Collaboration (CKD-EPI) equation refit without adjustment for race. BUN/Creatinine Ratio 12.1 LAB CHEMISTRY METHOD 10/21/2024 10:24 AM [facility] Calcium 8.5 8.5 - 10.5 mg/dL LAB CHEMISTRY METHOD 10/21/2024 10:24 AM [facility] AST (SGOT) 15 10 - 42 unit/L LAB CHEMISTRY METHOD 10/21/2024 10:24 AM [facility] ALT (SGPT) 22 10 - 60 unit/L LAB CHEMISTRY METHOD 10/21/2024 10:24 AM [facility] Alkaline Phosphatase 111 42 - 121 unit/L LAB CHEMISTRY METHOD 10/21/2024 10:24 AM [facility] Total Protein 6.0 6.0 - 8.0 g/dL LAB CHEMISTRY METHOD 10/21/2024 10:24 AM [facility] Albumin 2.6(L) 3.2 - 5.0 g/dL LAB CHEMISTRY METHOD 10/21/2024 10:24 AM [facility] Total Bilirubin 0.5 0.0 - 1.4 mg/dL LAB CHEMISTRY METHOD 10/21/2024 10:24 AM [facility] Blood Venous blood specimen / Unknown Venipuncture / Unknown 10/21/2024 4:40 AM EDT 10/21/2024 9:27 AM EDT us Cee Gorman MD LAB BLOOD ORDERABLES Fin al Result [facility] [address] [place] [address], * (ABNORMAL) Complete blood count (10/21/2024 4:40 AM EDT) [facility] WBC 7.7 4.8 - 10.8 K/mcL LAB HEMETOLOGY METHOD 10/21/2024 9:48 AM [facility] RBC 3.60(L) 4.50 - 5.50 M/mcL LAB HEMETOLOGY METHOD 10/21/2024 9:48 AM [facility] Hemoglobin 11.5(L) 13.5 - 17.5 g/dL LAB HEMETOLOGY METHOD 10/21/2024 9:48 AM [facility] Hematocrit 36.2(L) 42.0 - 54.0 % LAB HEMETOLOGY METHOD 10/21/2024 9:48 AM [facility] MCV 99.5(H) 79.0 - 98.0 FL LAB HEMETOLOGY METHOD 10/21/2024 9:48 AM [facility] MCH 31.6 27.0 - 32.0 pcg LAB HEMETOLOGY METHOD 10/21/2024 9:48 AM [facility] LAB MCHC 31.8(L) 32.0 - 37.0 g/dL LAB HEMETOLOGY METHOD 10/21/2024 9:48 AM [facility] RDW 13.8 11.0 - 15.0 % LAB HEMETOLOGY METHOD 10/21/2024 9:48 AM [facility] Platelets 229 130 - 400 K/mcL LAB HEMETOLOGY METHOD 10/21/2024 9:48 AM [facility] MPV 10.1 7.0 - 11.0 FL LAB HEMETOLOGY METHOD 10/21/2024 9:48 AM [facility] LAB NRBC 0.0 <1.0 % LAB HEMETOLOGY METHOD 10/21/2024 9:48 AM [facility] LAB NRBC Absolute 0.00 <0.10 K/mcL LAB HEMETOLOGY METHOD 10/21/2024 9:48 AM EDT [facility] Blood Venous blood specimen / Unknown Venipuncture / Unknown 10/21/2024 4:40 AM EDT 10/21/2024 9:27 AM EDT us Cee Gorman MD LAB BLOOD ORDERABLES Fin al Result [facility] [address] [place] [address], documented in this encounter Visit Diagnoses Diagnosis Essential (primary) hypertension Unspecified essential hypertension Anemia, unspecified Chronic kidney disease, unspecified Other disorders of electrolyte and fluid balance, not elsewhere classified documented in this encounter Care Teams Photograph Printer Relationship Specialty Start Date End Date Cee Gorman MD [address] [place] [address] PCP - General Family Medicine 10/21/24 documented as of this encounter
--- OUTSIDE RECORDS SUMMARY | 2024-11-30 06:08 | XMS_ITS | Encounter Summary ---
Author Organization [facility] Address [address] [place] [address] [place] [address] Phone Care Team Providers Care Manager Solution Name Role Phone Miquel Lo DO Unavailable Miquel Lo DO Primary Care Provider Chaparrita Harper RN Unavailable Christopher Dunham MD Unavailable Christy Novak CNP Unavailable Chaparrita Nicolas MD Unavailable [phone] Jerrod Sanchez DO Unavailable [phone] Encounter Details Date Type Department Care Team (Late st Contact Info) Description 12/29/2020 Procedure Pass [facility], Ct Scan - [address] [address] Social History Tobacco Use Types Packs/Day Years [...] high school, GED, job training, learning the Turkmen language, technical skills, or developing parenting skills)? [...] Date of Assessment Author No Risk Indicated 12/29/2020 7:40 PM EDT Iman Robertson RN * [place] Suicide Severity Rating Scale (Screener/Recent Self-Report) Question Answer Date of Assessment Author 1. Wish to be (Past 1 Month) No 12/29/2020 7:40 PM EDT Chrissie Boucher RN 2. Non-Specific Active Suicidal Thoughts (Past 1 Month) No 12/29/2020 7:40 PM EDT Chrissie Boucher RN 6. Suicidal Behavior (Lifetime) No 12/29/2020 7:40 PM EDT Chrissie Boucher RN documented as of this encounter Plan of Treatment Upcoming Encounters Date Type Department Care Team (Late st Contact Info) Description 01/10/2025 2:30 PM EDT Office Visit [facility] Family Medicine [address] [place] [address] Miquel Lo DO [address] [facility], [address] [place] [address] 05/18/2025 10:30 AM EST Office Visit [facility]iatric[facility] [address] [place] [address] Logan Scott DO [address] [place] [address] [email or web address] documented as of this encounter Visit Diagnoses Not on filedocumented in this encounter Additional Health Concerns Assessment Noted Time PHQ-2 Depression Total Score: 2 08/31/19 20 9:52 AM EDT documented as of this encounter Care Teams Manager Solution Relationship Specialty Start Date End Date Miquel Lo DO [address] [facility] 7 [place] [address] [email or web address] PCP - General 04/02/17 Miquel Lo DO [address] [facility] 7 [place] [address] [email or web address] Insurance Assigned Provider 07/04/23 Chaparrita Harper, RENALDO [address] [place] [address] [email or web address] iCMP Tobacco Drummer 06/05/21 Christopher Dunham MD [address] [place] [phone] [email or web address] Primary Oncologist Medical Oncology 04/22/22 09/08/24 Christy Novak CNP [address] [place] [address] [email or web address] Nurse Practitioner Medical Oncology 05/05/22 Chaparrita Nicolas MD [address] [place] [address] [email or web address] Geriatric Medicine 06/20/22 Jerrod Sanchez DO [address] [place] [address] [email or web address] Hematology and Oncology 09/09/24 documented as of this encounter Additional Source Comments The information contained in this document represents components of the legal health record. It is not the complete legal health record.[facility]
--- OUTSIDE RECORDS SUMMARY | 2024-11-30 06:08 | XMS_ITS | Encounter Summary ---
Author Organization [facility] Address [address] [place] [address] [place] [address] Phone Care Team Providers Care Civil Preparedness Coordinator Name Role Phone Miquel Lo DO Unavailable Miquel Lo DO Primary Care Provider Rikki Shen OT Unavailable [phone] Chaparrita Harper RN Unavailable Christopher Dunham MD Unavailable Christy Novak WEB SITE ADMINISTRATOR Unavailable Chaparrita Nicolas MD Unavailable Jerrod Sanchez DO Unavailable Encounter Details Date Type Department Care Team (Late st Contact Info) Description 09/08/2017 Ancillary Orders Virtual Department [address] [place] [address] Anatoly Beltran MD [address] [place] [address], [address] [address] [email or web address] Calculus of ureter Social History Tobacco Use [...] Description 01/10/2025 2:30 PM EDT Office Visit [facility] Medicine [address] [place] [address] TeresitaMiquel, DO [address] [facility], [address] [place] [address] [email or web address] 05/18/2025 10:30 AM EST Office Visit [facility] Geriatrics [address] [place] [address] Logan Scott, DO [address] [place] [address] [email or web address] documented as of this encounter Results * US Kidneys (10/01/2017 8:02 AM EDT) Anatomical Region Laterality Modality Abdomen, Kidney Ultrasound 10/01/2017 8:21 AM EDT Impressions 10/01/2017 8:57 AM EDT No hydronephrosis or shadowing renal calculi. POS - [id number] Narrative 10/01/2017 8:57 AM EDT US KIDNEYS [...] hydronephrosis or shadowing renal calculi. POS - [id number] us Anatoly Beltran MD G US RENAL Final Result documented in this encounter Visit Diagnoses Diagnosis Calculus of ureter Calculus of ureter documented in this encounter Additional Health Concerns Infection Onset Date Last Indicated Resolved Time CoV-Risk 12/05/2020 12/05/2020 12/15/2020 1:25 AM EDT documented as of this encounter Care Teams Civil Preparedness Coordinator Relationship Specialty Start Date End Date Miquel Lo DO [address] [place] [address] [email or web address] PCP - General 04/02/17 Miquel Lo DO [address] [place] [address] [email or web address] Insurance Assigned Provider 07/04/23 Rikki Shen OT [address] [place] [address] [email or web address] Transitions Founder And Chief Technical OfficerRn Med Surg Therapy 07/02/20 07/02/20 Chaparrita Harper, RENALDO [address] [place] [address] [email or web address] iCMP Founder And Chief Technical Officer 06/05/21 Christopher Dunham MD [address] [place] [address] [address] [place] [address] [email or web address] Primary Oncologist Medical Oncology 04/22/22 09/08/24 Christy Novak CNP [address] [place] [address] [email or web address] Nurse Practitioner Medical Oncology 05/05/22 Chaparrita Nicolas MD [address] [place] [address] [email or web address] Geriatric Medicine 06/20/22 Jerrod Sanchez DO [address] [place] [address] [email or web address] Hematology and Oncology 09/09/24 documented as of this encounter Additional Source Comments The information contained in this document represents components of the legal health record. It is not the complete legal health record.[facility]
--- OUTSIDE RECORDS SUMMARY | 2024-11-30 06:08 | XMS_ITS | Encounter Summary ---
Author Organization [facility] Address [facility] [employer] [facility] [address] [place] [address] Phone Care Team Providers Care [employer]anners Name Role Phone Miquel Lo DO Unavailable Miquel Lo DO Primary Care Provider [phone] Chaparrita Harper RN Unavailable [phone] Christy Novak [employer]OR[employer]ED [employer]ING OFFICER Unavailable Chaparrita Nicolas MD Unavailable Jerrod Sanchez DO Unavailable Encounter Details Date Type Department Care Team (Late st Contact Info) Description 09/10/2024 Procedure Pass [facility], Ct Scan - [address] [address] Social History Tobacco Use Types Packs/Day Years [...] as food, clothing, or medical care? No 09/10/2024 In the past 12 months have y ou been in a relationship with a person who hurts, threatens, or tries to control you? No 09/10/2024 Are you denied basic needs s uch as food, clothing, or medical care? No 09/10/2024 In the past 12 months have y ou been in a relationship with a person who hurts, threatens, or tries to control you? No 09/10/2024 Sex and Gender Information Value Date Recorded [...] Date of Assessment Author No Risk Indicated 09/10/2024 11:34 AM EDT Kvng Amaya RN * [place] Suicide Severity Rating Scale (Screener/Recent Self-Report) Question Answer Date of Assessment Author 1. Wish to be (Past 1 Month) No 11:34 AM EDT Kvng Amaya RN 2. Non-Specific Active Suici cheryl Thoughts (Past 1 Month) No 09/10/2024 11:34 AM EDT Kvng Amaya RN 6. Suicidal Behavior (Lifetime) No 11:34 AM EDT Kvng Amaya RN documented as of this encounter Plan of Treatment Upcoming Encounters Date Type Department Care Team (Late st Contact Info) Description 01/10/2025 2:30 PM EDT Office Visit [facility] Medicine [address] [place] [address] Miquel Lo, DO 234 [facility] 7 [place] [address] [email or web address] 05/18/2025 10:30 AM EST Office Visit [facility] Geriatrics [address] [place] [address] Logan Scott, DO [address] [place] [address] [email or web address] documented as of this encounter Goals Goal [...] RN Note: Patient Agrees with goal priority: {yes/no:[id number]} Patient Self-Management activities for this goal: {pick list:39439518} Task/Interventions: Increase participation in self-management activities Care Plan Chronic Condition Self-Managemen t No Chaparrita Harper RN Note: Patient Agrees with goal priority: {yes/no:00043733} Patient Self-Management activities for this goal: {pick list:04879794} Task/Interventions: Participation in sick day plan for condition Care Plan Chronic Condition Self-Managemen t No Chaparrita Harper RN Note: Patient Agrees with goal priority: {yes/no:29197410} Patient Self-Management activities for this goal: {pick list:79782413} Task/Interventions: Participation in telemedicine activities to monitor condition Care Plan Chronic Condition Self-Managemen t No Chaparrita Harper RN Note: Patient Agrees with goal priority: {yes/no:99990438} Patient Self-Management activities for this goal: {pick list:53306725} Task/Interventions: Understand symptoms and warning signs to report to Provider Care Plan Chronic Condition Self-Managemen t No Chaparrita Harper RN Note: Patient Agrees with goal priority: {yes/no:84865630} Patient Self-Management activities for this goal: {pick list:42858179} Task/Interventions: Improved control over condition Care Plan Chronic Condition Self-Managemen t No Chaparrita Harper RN Note: Patient Agrees with goal priority: {yes/no:29501438} Patient Self-Management activities for this goal: {pick list:82405272} Task/Interventions: No unplanned hospitalizations for condition Care Plan Chronic Condition Self-Managemen t No Chaparrita Harper RN Note: Patient Agrees with goal priority: {yes/no:59394294} Patient Self-Management activities for this goal: {pick list:92006938} Task/Interventions: Able to maintain current level of functioning Care Plan Chronic Condition Self-Managemen t No Chaparrita Harper RN Note: Patient Agrees with goal priority: {yes/no:73319962} Patient Self-Management activities for this goal: {pick list:79266114} Task/Interventions: Avoid environmental and psychosocial exposures to triggers that worsen condition Care Plan Chronic Condition Self-Managemen t No Chaparrita Harper RN Note: Patient Agrees with goal priority: {yes/no:21799404} Patient Self-Management activities for this goal: {pick list:36406138} Task/Interventions: documented as of this encounter Visit Diagnoses Not on filedocumented in this encounter Additional Health Concerns Active Problems Noted Date Diagnosed Date Chronic Condition Self-Management 07/09/2021 Chronic Condition Self-Management 01/20/2023 Assessment Noted Time PHQ-9 Depression Total Score: 9 06/03/19 25 6:33 PM EST PHQ-2 Depression Total Score: 4 06/03/19 25 6:33 PM EST documented as of this encounter Care Teams [employer] Planners Relationship Specialty Start Date End Date Miquel Lo DO 234 [facility] [address] [place] [address] [email or web address] PCP - General 04/02/17 Miquel Lo DO 234 [facility] [address] [place] [address] [email or web address] Insurance Assigned Provider 07/04/23 Chaparrita Harper, RENALDO [address] [place] [address] [email or web address] iCMP Manager Publishing 06/05/21 Christy Novak CNP [address] [place] [address] [email or web address] Nurse Practitioner Medical Oncology 05/05/22 Chaparrita Nicolas MD [address] [place] [address] [email or web address] Geriatric Medicine 06/20/22 Jerrod Sanchez DO [address] [place] [address] [email or web address] Hematology and Oncology 09/09/24 documented as of this encounter Additional Source Comments The information contained in this document represents components of the legal health record. It is not the complete legal health record.[facility]
--- OUTSIDE RECORDS SUMMARY | 2024-11-30 06:08 | XMS_ITS | Encounter Summary ---
Author Organization [facility] Address [address] [place] [address] [place] [address] Phone Care Team Providers Care Shear Grinder Operator Name Role Phone Miquel Lo DO Unavailable Miquel Lo DO Primary Care Provider [phone] Chaparrita Harper RN Unavailable [phone] Christopher Dunham MD Unavailable Christy Novak COMPOUNDING ASSISTANT Unavailable Chaparrita Nicolas MD Unavailable [phone] Jerrod Sanchez DO Unavailable Encounter Details Date Type Department Care Team (Late st Contact Info) Description 02/14/2023 Procedure Pass [facility], Ct Scan - [address] [address] Social History Tobacco Use Types Packs/Day Years [...] Date of Assessment Author No Risk Indicated 02/14/2023 1:43 AM Rikki Anderson, RN * [place] Suicide Severity Rating Scale (Screener/Recent Self-Report) Question Answer Date of Assessment Author 1. Wish to be (Past 1 Month) No 023 1:43 AM Rikki Anderson, RN 2. Non-Specific Active Suici cheryl Thoughts (Past 1 Month) No 02/14/2023 1:43 AM Celso Anderson, RN 6. Suicidal Behavior (Lifetime) No 3 1:43 AM Rikki Anderson, RN documented as of this encounter Plan of Treatment Upcoming Encounters Date Type Department Care Team (Late st Contact Info) Description 01/10/2025 2:30 PM EDT Office Visit [address] [id number] Miquel Lo, DO [address] [facility], [address] [place] [address] 05/18/2025 10:30 AM EST Office Visit [facility] [address] [place] [address] Logan Scott, DO [address] [place] [address] [email or web address] documented as of this encounter Goals Goal Patient Goal Type Associated Problems Recent Progress Patient-Stated? Author Adhere to prescribed treatment plan Care Plan Chronic Condition Self-Managemen t No Chaparrita Harper RN Increase participation in self-management activities Care Plan Chronic Condition Self-Managemen t Chaparrita Coleman RN Participation in sick day plan for condition Care Plan Chronic Condition Self-Managemen t Chaparrita Coleman RN Participation in telemedicine activities to monitor [...] RN Note: Patient Agrees with goal priority: {yes/no:47817117} Patient Self-Management activities for this goal: {pick list:15279960} Task/Interventions: Increase participation in self-management activities Care Plan Chronic Condition Self-Managemen t No Chaparrita Harper RN Note: Patient Agrees with goal priority: {yes/no:71829082} Patient Self-Management activities for this goal: {pick list:57154001} Task/Interventions: Participation in sick day plan for condition Care Plan Chronic Condition Self-Managemen t No Chaparrita Harper RN Note: Patient Agrees with goal priority: {yes/no:47411443} Patient Self-Management activities for this goal: {pick list:87651462} Task/Interventions: Participation in telemedicine activities to monitor condition Care Plan Chronic Condition Self-Managemen t No Chaparrita Harper RN Note: Patient Agrees with goal priority: {yes/no:89305948} Patient Self-Management activities for this goal: {pick list:05635944} Task/Interventions: Understand symptoms and warning signs to report to Provider Care Plan Chronic Condition Self-Managemen t No Chaparrita Harper RN Note: Patient Agrees with goal priority: {yes/no:12246914} Patient Self-Management activities for this goal: {pick list:25761355} Task/Interventions: Improved control over condition Care Plan Chronic Condition Self-Managemen t No Chaparrita Harper RN Note: Patient Agrees with goal priority: {yes/no:51573838} Patient Self-Management activities for this goal: {pick list:60441958} Task/Interventions: No unplanned hospitalizations for condition Care Plan Chronic Condition Self-Managemen t No Chaparrita Harper RN Note: Patient Agrees with goal priority: {yes/no:33549675} Patient Self-Management activities for this goal: {pick list:76269392} Task/Interventions: Able to maintain current level of functioning Care Plan Chronic Condition Self-Managemen t No Chaparrita Harper RN Note: Patient Agrees with goal priority: {yes/no:14554068} Patient Self-Management activities for this goal: {pick list:20030508} Task/Interventions: Avoid environmental and psychosocial exposures to triggers that worsen condition Care Plan Chronic Condition Self-Managemen t No Chaparrita Harper, RN Note: Patient Agrees with goal priority: {yes/no:55381258} Patient Self-Management activities for this goal: {pick list:49935102} Task/Interventions: documented as of this encounter Visit Diagnoses Not on filedocumented in this encounter Additional Health Concerns Active Problems Noted Date Diagnosed Date Chronic Condition Self-Management 07/09/2021 Chronic Condition Self-Management 01/20/2023 Assessment Noted Time PHQ-9 Depression Total Score: 5 01/20/20 10:43 AM EDT PHQ-2 Depression Total Score: 2 01/20/20 10:43 AM EDT documented as of this encounter Care Teams Shear Grinder Operator Relationship Specialty Start Date End Date Miquel Lo DO [address] [place] [phone] [email or web address] PCP - General 04/02/17 Miquel Lo DO [address] [place] [phone] [email or web address] Insurance Assigned Provider 07/04/23 Chaparrita Harper, RENALDO [address] [place] [phone] [email or web address] Claims Attorney 06/05/21 Christopher Dunham MD [address] [place] [address] [address], [place] [address] [email or web address] Primary Oncologist Medical Oncology 04/22/22 09/08/24 Christy Novak CNP [address] [place] [phone] [email or web address] Nurse Practitioner Medical Oncology 05/05/22 Chaparrita Nicolas MD [address] [place] [address] [email or web address] Geriatric Medicine 06/20/22 Jerrod Sanchez DO [address] [place] [phone] [email or web address] Hematology and Oncology 09/09/24 documented as of this encounter Additional Source Comments The information contained in this document represents components of the legal health record. It is not the complete legal health record.[facility]
--- OUTSIDE RECORDS SUMMARY | 2024-11-30 06:08 | XMS_ITS | Encounter Summary ---
Author Organization [facility] Address [address] [place] [address] [place] [phone] Phone Care Team Providers Care Float Phlebotomist Name Role Phone Miquel Lo DO Unavailable Miquel Lo DO Primary Care Provider [phone] Chaparrita Harper RN Unavailable [phone] Christopher Dunham MD Unavailable [phone] Christy Novak CNP Unavailable Chaparrita Nicolas MD Unavailable [phone] Jerrod Sanchez DO Unavailable [phone] Encounter Details Date Type Department Care Team (Late st Contact Info) Description 11/02/2020 Procedure Pass [facility] [address] [place] [address] Social History Tobacco Use Types Packs/Day Years [...] high school, GED, job training, learning the [place] language, technical skills, or developing parenting skills)? [...] 6:17 PM EDT Anne Chavira RN * [place] Suicide Severity Rating Scale (Screener/Recent Self-Report) Question [...] Description 01/10/2025 2:30 PM EDT Office Visit [facility] Medicine [address] [place] [address] Miquel Lo, DO [address] [facility], [address] [place] [address] 05/18/2025 10:30 AM EST Office Visit [facility] [address] [place] [address] [place] [address] Logan Scott, DO [address] [place] [address] [email or web address] documented as of this encounter Visit Diagnoses Not on filedocumented in this encounter Additional Health Concerns Infection Onset Date Last Indicated Resolved Time CoV-Risk 12/05/2020 12/05/2020 12/15/2020 1:25 AM EDT Assessment Noted Time PHQ-2 Depression Total Score: 2 08/31/19 20 9:52 AM EDT documented as of this encounter Care Teams Float Phlebotomist Relationship Specialty Start Date End Date Miquel Lo DO [address] [facility] [address] [place] [address] [email or web address] PCP - General 04/02/17 Miquel Lo DO [address] [facility] [address] [place] [address] [email or web address] Insurance Assigned Provider 07/04/23 Chaparrita Harper, RN [address] [place] [phone] [email or web address] Marketing Project Manager 06/05/21 Christopher Dunham MD [address] [place] [phone] [email or web address] Primary Oncologist Medical Oncology 04/22/22 09/08/24 Christy Novak CNP [address] [place] [address] [email or web address] Nurse Practitioner Medical Oncology 05/05/22 Chaparrita Nicolas MD [address] [place] [address] [email or web address] Geriatric Medicine 06/20/22 Jerrod Sanchez DO [address] [place] [address] [email or web address] Hematology and Oncology 09/09/24 documented as of this encounter Additional Source Comments The information contained in this document represents components of the legal health record. It is not the complete legal health record.[facility]
--- OUTSIDE RECORDS SUMMARY | 2024-11-30 06:08 | XMS_ITS | Clinical Summary ---
Author Organization [facility] Address [address] [place] [address] Phone Care Team Providers Care Hand Binder Stripper Name Role Phone Cee Gorman MD Primary Care Provider + Encounters Date Type Department Care Team Description 11/25/2024 Lab Requisition [facility] Lab [address] [place] [phone] Cee Gorman MD Essential (primary) hypertension; Anemia, unspecified; Chronic kidney disease, unspecified; Other disorders of electrolyte and fluid balance, not elsewhere classified 11/19/2024 Lab Requisition [facility] Lab [address] [place] [phone] Cee Gorman MD Essential (primary) hypertension; Anemia, unspecified; Chronic kidney disease, unspecified; Other disorders of electrolyte and fluid balance, not elsewhere classified 11/13/2024 Lab Requisition [facility] Lab [address] [place] [phone] Cee Gorman MD Essential (primary) hypertension; Anemia, unspecified; Chronic kidney disease, unspecified; Other disorders of electrolyte and fluid balance, not elsewhere classified 11/04/2024 Lab Requisition [facility] Lab [address] [place] [phone] Cee Gorman MD Essential (primary) hypertension; Anemia, unspecified; Chronic kidney disease, unspecified; Other disorders of electrolyte and fluid balance, not elsewhere classified 11/03/2024 Lab Requisition [facility] Lab [address] [place] [phone] Cee Gorman MD Traumatic subdural hemorrhage without loss of consciousness, subsequent encounter 11/02/2024 Lab Requisition [facility] Lab [address] [place] [phone] Cee Gorman MD Altered mental status, unspecified; Frequency of micturition 10/30/2024 Lab Requisition [facility] Main Lab [address] [place] [phone] Cee Gorman MD Essential (primary) hypertension; Anemia, unspecified; Chronic kidney disease, unspecified; Other disorders of electrolyte and fluid balance, not elsewhere classified 10/22/2024 Lab Requisition [facility] Lab [address] [place] [phone] Cee Gorman MD Essential (primary) hypertension; Anemia, unspecified; Chronic kidney disease, unspecified; Other disorders of electrolyte and fluid balance, not elsewhere classified 10/21/2024 Lab Requisition [facility] Lab [address] [place] [phone] Cee Gorman MD Essential (primary) hypertension; Anemia, unspecified; Chronic kidney disease, unspecified; Other disorders of electrolyte and fluid balance, not elsewhere classified from Last 3 Months Social History Tobacco Use Types Packs/Day Years Used Date Smoking Tobacco: Never Assessed Sex and Gender Information Value Date Recorded Sex Assigned at Not on file Legal Sex Male 8:57 AM EDT Gender Identity Not on file Sexual Orientation Not on file Plan of Treatment Health Maintenance Due Date Last Done Comments DTaP,Tdap,and Td Vaccines (1 - Tdap) 09/18/1966 Pneumococcal Vaccine: 50+ Years (1 of 1 - PCV) 09/18/1997 Zoster Vaccines (1 of 2) 09/18/1997 RSV Immunization Adult Patients (1 - 1-dose 75+ series) 09/18/2022 Depression Screening 03/30/2024 Cholesterol Screening (Lipid Panel) 10/06/2024 Falls Risk Assessment 10/06/2024 Hepatitis C Screening 10/06/2024 Medicare Annual Wellness Visit 10/06/2024 Social Influencers of Health Screening 10/06/2024 COVID-19 Vaccine ( - season) 2024 Influenza Vaccine (#1) 2024 Hypertension/CHF/CAD Annual BMP Blood Test 11/21/2025 11/21/2024, 11/14/2024, 11/07/2024, Additional history exists HIB Vaccines Aged Out No longer eligi ble based on patient's age to complete this topic HPV Vaccines Aged Out No longer eligi ble based on patient's age to complete this topic Hepatitis A Vaccines Aged Out No long er eligible based on patient's age to complete this topic Hepatitis B Vaccines Aged Out No long er eligible based on patient's age to complete this topic IPV Vaccines Aged Out No longer eligi ble based on patient's age to complete this topic MMR Vaccines Aged Out No longer eligi ble based on patient's age to complete this topic Meningococcal ACWY Vaccine Aged Out N o longer eligible based on patient's age to complete this topic Meningococcal B Vaccine Aged Out No l onger eligible based on patient's age to complete this topic RSV Immunization Patients Under 20 months Aged Out No longer eligible based on patient's age to complete this topic Varicella Vaccines Aged Out No longer eligible based on patient's age to complete this topic Procedures Procedure Name Priority Date/Time Associated Diagnosis Comments COMPREHENSIVE METABOLIC PANEL Routine 11/21/2024 8:15 AM EDT Essential (primary) hypertension Anemia, unspecified Chronic kidney disease, unspecified Other disorders of electrolyte and fluid balance, not elsewhere classified COMPLETE BLOOD COUNT Routine 11/21/2024 8:15 AM EDT Essential (primary) hypertension Anemia, unspecified Chronic kidney disease, unspecified Other disorders of electrolyte and fluid balance, not elsewhere classified COMPREHENSIVE METABOLIC PANEL Routine 11/14/2024 6:01 AM EDT Essential (primary) hypertension Anemia, unspecified Chronic kidney disease, unspecified Other disorders of electrolyte and fluid balance, not elsewhere classified COMPLETE BLOOD COUNT Routine 11/14/2024 6:01 AM EDT Essential (primary) hypertension Anemia, unspecified Chronic kidney disease, unspecified Other disorders of electrolyte and fluid balance, not elsewhere classified COMPREHENSIVE METABOLIC PANEL Routine 11/07/2024 9:01 AM EDT Essential (primary) hypertension Anemia, unspecified Chronic kidney disease, unspecified Other disorders of electrolyte and fluid balance, not elsewhere classified COMPLETE BLOOD COUNT Routine 11/07/2024 9:01 AM EDT Essential (primary) hypertension Anemia, unspecified Chronic kidney disease, unspecified Other disorders of electrolyte and fluid balance, not elsewhere classified BASIC METABOLIC PANEL Routine 11/03/2024 5:55 AM EDT Traumatic subdural hemorrhage without loss of consciousness, subsequent encounter COMPLETE BLOOD COUNT Routine 11/03/2024 5:55 AM EDT Traumatic subdural hemorrhage without loss of consciousness, subsequent encounter LOVELL URINE CULTURE TUBE Routine 11/02/2024 1:50 PM EDT Altered mental status, unspecified Frequency of micturition URINALYSIS WITH REFLEX MICROSCOPIC AND CULTURE Routine 11/02/2024 1:50 PM EDT Altered mental status, unspecified Frequency of micturition URINALYSIS WITH REFLEX MICROSCOPIC AND CULTURE Routine 11/02/2024 1:50 PM EDT Altered mental status, unspecified Frequency of micturition CULTURE URINE Routine 11/02/2024 1:50 PM EDT Altered mental status, unspecified Frequency of micturition COMPREHENSIVE METABOLIC PANEL Routine 10/31/2024 6:22 AM EDT Essential (primary) hypertension Anemia, unspecified Chronic kidney disease, unspecified Other disorders of electrolyte and fluid balance, not elsewhere classified COMPLETE BLOOD COUNT Routine 10/31/2024 6:22 AM EDT Essential (primary) hypertension Anemia, unspecified Chronic kidney disease, unspecified Other disorders of electrolyte and fluid balance, not elsewhere classified COMPREHENSIVE METABOLIC PANEL Routine 10/24/2024 6:49 AM EDT Essential (primary) hypertension Anemia, unspecified Chronic kidney disease, unspecified Other disorders of electrolyte and fluid balance, not elsewhere classified COMPLETE BLOOD COUNT Routine 10/24/2024 6:49 AM EDT Essential (primary) hypertension Anemia, unspecified [...] electrolyte and fluid balance, not elsewhere classified COMPLETE BLOOD COUNT Routine 10/21/2024 4:40 AM EDT Essential (primary) hypertension Anemia, unspecified Chronic kidney disease, unspecified Other disorders of electrolyte and fluid balance, not elsewhere classified from Last 3 Months Results * (ABNORMAL) Complete blood count (11/21/2024 8:15 AM EDT) Only the most recent of7 resultswithin the time period is included. [facility] WBC 10.8 4.8 - 10.8 K/mcL LAB HEMETOLOGY METHOD 11/21/2024 11:16 AM [facility] LAB RBC 3.90(L) 4.50 - 5.50 M/mcL LAB HEMETOLOGY METHOD 11/21/2024 11:16 AM [facility] LAB Hemoglobin 12.1(L) 13.5 - 17.5 g/dL LAB HEMETOLOGY METHOD 11/21/2024 11:16 AM [facility] LAB Hematocrit 38.1(L) 42.0 - 54.0 % LAB HEMETOLOGY METHOD 11/21/2024 11:16 AM [facility] LAB MCV 98.2(H) 79.0 - 98.0 FL LAB HEMETOLOGY METHOD 11/21/2024 11:16 AM [facility] LAB MCH 31.2 27.0 - 32.0 pcg LAB HEMETOLOGY METHOD 11/21/2024 11:16 AM EDT [facility] LAB MCHC 31.8(L) 32.0 - 37.0 g/dL LAB HEMETOLOGY METHOD 11/21/2024 11:16 AM EDT [facility] LAB RDW 13.5 11.0 - 15.0 % LAB HEMETOLOGY METHOD 11/21/2024 11:16 AM EDT [facility] LAB Platelets 211 130 - 400 K/mcL LAB HEMETOLOGY METHOD 11/21/2024 11:16 AM EDT [facility] LAB MPV 10.3 7.0 - 11.0 FL LAB HEMETOLOGY METHOD 11/21/2024 11:16 AM EDT [facility] LAB NRBC 0.0 <1.0 % LAB HEMETOLOGY METHOD 11/21/2024 11:16 AM EDT [facility] LAB NRBC Absolute 0.00 <0.10 K/mcL LAB HEMETOLOGY METHOD 11/21/2024 11:16 AM EDT [facility] LAB Blood Venous blood specimen / Unknown Venipuncture / Unknown 11/21/2024 8:15 AM EDT 11/21/2024 10:28 AM EDT us Cee Gorman MD LAB BLOOD ORDERABLES Fin al Result [facility] [address] [place] [address], * (ABNORMAL) Comprehensive metabolic panel (11/21/2024 8:15 AM EDT) Only the most recent of6 resultswithin the time period is included. Sodium 140 133 - 145 mmol/L LAB CHEMISTRY METHOD 11/21/2024 12:10 PM EDT [facility] LAB Potassium 4.2 3.5 - 5.5 mmol/L LAB CHEMISTRY METHOD 11/21/2024 12:10 PM [facility] LAB Chloride 108 96 - 110 mmol/L LAB CHEMISTRY METHOD 11/21/2024 12:10 PM [facility] LAB CO2 26 21 - 32 mmol/L LAB CHEMISTRY METHOD 11/21/2024 12:10 PM [facility] LAB Anion Gap 6 3 - 11 LAB CHEMISTRY METHOD 11/21/2024 12:10 PM [facility] LAB Glucose 85 70 - 100 mg/dL LAB CHEMISTRY METHOD 11/21/2024 12:10 PM [facility] LAB BUN 16 5 - 25 mg/dL LAB CHEMISTRY METHOD 11/21/2024 12:10 PM [facility] LAB Creatinine 0.88 0.70 - 1.30 mg/dL LAB CHEMISTRY METHOD 11/21/2024 12:10 PM [facility] LAB eGFR 89 >=60 mL/min/1. 73m2 LAB CHEMISTRY METHOD 11/21/2024 12:10 PM [facility] LAB Comment:Calculation based on the Chronic Kidney Disease Epidemiology Collaboration (CKD-EPI) equation refit without adjustment for race. BUN/Creatinine Ratio 18.2 LAB CHEMISTRY METHOD 11/21/2024 12:10 PM [facility] LAB Calcium 8.6 8.5 - 10.5 mg/dL LAB CHEMISTRY METHOD 11/21/2024 12:10 PM [facility] LAB AST (SGOT) 34 10 - 42 unit/L LAB CHEMISTRY METHOD 11/21/2024 12:10 PM [facility] LAB ALT (SGPT) 18 10 - 60 unit/L LAB CHEMISTRY METHOD 11/21/2024 12:10 PM [facility] LAB Alkaline Phosphatase 104 42 - 121 unit/L LAB CHEMISTRY METHOD 11/21/2024 12:10 PM [facility] LAB Total Protein 6.7 6.0 - 8.0 g/dL LAB [facility]STR[facility] Albumin 3.0(L) 3.2 - 5.0 g/dL LAB CHEMISTRY METHOD 11/21/2024 12:10 PM [facility] LAB Total Bilirubin 0.9 0.0 - 1.4 mg/dL LAB CHEMISTRY METHOD 11/21/2024 12:10 PM [facility] LAB Blood Venous blood specimen / Unknown Venipuncture / Unknown 11/21/2024 8:15 AM EDT 11/21/2024 10:28 AM EDT us Cee Gorman MD LAB BLOOD ORDERABLES Fin al Result [facility] [address] [place] [address], [place] [phone] * (ABNORMAL) Basic metabolic panel (11/03/2024 5:55 AM EDT) Sodium 140 133 - 145 mmol/L LAB CHEMISTRY METHOD 11/03/2024 10:16 AM [facility] LAB Potassium 3.8 3.5 - 5.5 mmol/L LAB CHEMISTRY METHOD 11/03/2024 10:16 AM [facility] Chloride 109 96 - 110 mmol/L LAB CHEMISTRY METHOD 11/03/2024 10:16 AM [facility] CO2 27 21 - 32 mmol/L LAB CHEMISTRY METHOD 11/03/2024 10:16 AM [facility] Anion Gap 4 3 - 11 LAB CHEMISTRY METHOD 11/03/2024 10:16 AM [facility] LAB Glucose 64(L) 70 - 100 mg/dL LAB CHEMISTRY METHOD 11/03/2024 10:16 AM [facility] BUN 12 5 - 25 mg/dL LAB CHEMISTRY METHOD 11/03/2024 10:16 AM [facility] LAB Creatinine 0.88 0.70 - 1.30 mg/dL LAB CHEMISTRY METHOD 11/03/2024 10:16 AM EDT [facility] LAB eGFR 89 >=60 mL/min/1. 73m2 LAB CHEMISTRY METHOD 11/03/2024 10:16 AM EDT [facility] LAB Comment:Calculation based on the Chronic Kidney Disease Epidemiology Collaboration (CKD-EPI) equation refit without adjustment for race. BUN/Creatinine Ratio 13.6 LAB CHEMISTRY METHOD 11/03/2024 10:16 AM EDT [facility] Calcium 8.2(L) 8.5 - 10.5 mg/dL LAB CHEMISTRY METHOD [facility] Blood Venous blood specimen / Unknown Venipuncture / Unknown 11/03/2024 5:55 AM EDT 11/03/2024 9:04 AM EDT Cee Gorman MD LAB BLOOD ORDERABLES Fin al Result [facility] [address] [place] [address], [place] [phone] * (ABNORMAL) Urinalysis with reflex microscopic and culture (11/02/2024 1:50 PM EDT) Specific [place] Urine 1.022 1.003 - 1.030 LAB URINALYSIS - AUTOMATED METHOD 11/02/2024 5:34 PM T [facility] pH, Urine 6.0 5.0 - 8.0 pH LAB URINALYSIS - AUTOMATED METHOD 11/02/2024 5:34 PM T [facility] Leukocytes, Urine Moderate(A) Negative LAB URINALYSIS - AUTOMATED METHOD 11/02/2024 5:34 PM [facility] Nitrite, Urine Negative Negative LAB URINALYSIS - AUTOMATED METHOD 11/02/2024 5:34 PM EDT [facility] Protein, Urine 300(A) <=Trace mg/dL LAB URINALYSIS - AUTOMATED METHOD 11/02/2024 5:34 PM [facility] Glucose, Urine Negative Negative mg/dL LAB URINALYSIS - AUTOMATED METHOD 11/02/2024 5:34 PM [facility] Ketones, Urine Negative Negative mg/dL LAB URINALYSIS - AUTOMATED METHOD 11/02/2024 5:34 PM [facility] Urobilinogen , Urine 1.0 0.2 - 1.0 mg/dL LAB URINALYSIS - AUTOMATED METHOD 11/02/2024 5:34 PM [facility] Bilirubin, Urine Negative Negative LAB URINALYSIS - AUTOMATED METHOD 11/02/2024 5:34 PM [facility] Blood, Urine Large(A) Negative LAB URINALYSIS - AUTOMATED METHOD 11/02/2024 5:34 PM [facility] LAB RBC, Urine 2,963.5(H) 0 - 4 /HPF LAB URINALYSIS - AUTOMATED METHOD 11/02/2024 5:34 PM [facility] LAB WBC, Urine 270.8(H) 0 - 4 /HPF LAB URINALYSIS - AUTOMATED METHOD 11/02/2024 5:34 PM [facility] LAB Squamous Epithelial, Urine 13 0 - 60 /LPF LAB URINALYSIS - AUTOMATED METHOD 11/02/2024 5:34 PM [facility] Crystals, Urine Light Calcium Oxalate crystals. /LPF LAB URINALYSIS - AUTOMATED METHOD 11/02/2024 5:34 PM [facility] Bacteria, Urine Negative Negative /HPF LAB URINALYSIS - AUTOMATED METHOD 11/02/2024 5:34 PM [facility] Hyaline Casts, Urine 2.1 0 - 3 /LPF LAB URINALYSIS - AUTOMATED METHOD 11/02/2024 5:34 PM [facility] Urine Urine specimen obtained by clean catch procedure / Unknown Non-blood Collection / Unknown 11/02/2024 1:50 PM EDT 11/02/2024 4:22 PM EDT Cee Gorman MD LAB URINE ORDERABLES Luis E namita Result - Final Performing Organization Address [facility]/ZIP Co de Phone Number [facility] [address] [place] [address], [place] [phone] * Lovell urine culture tube (11/02/2024 1:50 PM EDT) Pathologist [facility] Extra Tube Hold for add-ons. 11/02/2024 6:01 PM EDT [facility] Comment:Auto resulted. Urine Urine specimen obtained by clean catch procedure / Unknown 11/02/2024 1:50 PM EDT 11/02/2024 4:26 PM EDT Cee Gorman MD LAB URINE ORDERABLES Fin al Result Performing Organization Address [facility]/ZIP Co de Phone Number [facility] [address] [place] [address], [place] [phone] * (ABNORMAL) Culture urine (11/02/2024 1:50 PM EDT) Culture, Urine 50,000-100,000 CFU/mL Escherichia coli(A) GLADYS 11/05/2024 8:45 AM EDT [facility] Comment: The organism value for this result has been updated. These results have been appended to the previously preliminary verified report. Culture, Urine 50,000-100,000 CFU/mL Enterococcus faecalis(A) GLADYS 11/05/2024 8:45 AM EDT [facility] Comment: The organism value for this result has been updated. These results have been appended to the previously preliminary verified report. Edited result: Previously reported as Enterococcus species on 11/04/2024 at 1157 EDT. Urine Urine specimen obtained by clean catch procedure / Unknown Non-blood Collection / Unknown 11/02/2024 1:50 PM EDT 11/02/2024 5:29 PM EDT Narrative Organism Antibiotic Method Susceptibility Escherichia coli Amoxicillin/Clavulanate GLADYS <=2 ug/ml: Susceptible Escherichia coli Ampicillin/Sulbactam GLADYS <=2 ug/ml: Susceptible Escherichia coli Piperacillin/Tazobactam GLADYS <=4 ug/ml: Susceptible Escherichia coli Cefazolin (Urine) GLADYS 2 ug/ml: Susceptible Escherichia coli Cefoxitin GLADYS 8 ug/ml: Susceptible Escherichia coli Ceftazidime GLADYS <=0.5 ug/ml: Susceptible Escherichia coli Ceftriaxone GLADYS <=0.25 ug/ml: Susceptible Escherichia coli Cefepime GLADYS <=0.12 ug/ml: Susceptible Escherichia coli Meropenem GLADYS <=0.25 ug/ml: Susceptible Escherichia coli Amikacin GLADSY 2 ug/ml: Susceptible Escherichia coli Gentamicin GLADYS <=1 ug/ml: Susceptible Escherichia coli Ciprofloxacin GLADYS <=0.06 ug/ml: Susceptible Escherichia coli Levofloxacin GLADYS <=0.12 ug/ml: Susceptible Escherichia coli Nitrofurantoin GLADYS <=16 ug/ml: Susceptible Escherichia coli Trimethoprim/Sulfamethoxazole GLADYS <=20 ug/ml: Susceptible Enterococcus faecalis Benzylpenicillin GLADYS 2 ug/ml: Susceptible Enterococcus faecalis Ampicillin GLADYS <=2 ug/ml: Susceptible Enterococcus faecalis Ciprofloxacin GLADYS <=0.5 ug/ml: Susceptible Enterococcus faecalis Levofloxacin GLADYS 0.5 ug/ml: Susceptible Enterococcus faecalis Linezolid GLADYS 2 ug/ml: Susceptible Enterococcus faecalis Vancomycin GLADYS <=0.5 ug/ml: Susceptible Enterococcus faecalis Tetracycline GLADYS >=16 ug/ml: Resistant Enterococcus faecalis Nitrofurantoin GLADYS <=16 ug/ml: Susceptible us Cee Gorman MD LAB MICROBIOLOGY - GENER AL ORDERABLES Final Result [facility] [address] [place] [address], * Magnesium (10/21/2024 4:40 AM EDT) [facility] Signature Magnesium 2.1 1.9 - 2.6 mg/dL LAB CHEMISTRY METHOD 10/21/2024 10:24 AM EDT [facility] Blood Venous blood specimen / Unknown Venipuncture / Unknown 10/21/2024 4:40 AM EDT 10/21/2024 9:27 AM EDT Cee Gorman MD LAB BLOOD ORDERABLES Fin al Result [facility] [address] [place] [address], from Last 3 Months Insurance MEDICARE [facility] [address] [place] [address] Care Teams Hand Binder Stripper Relationship Specialty Start Date End Date Cee Gorman MD [address] [facility] [address] [place] [address] PCP - General Family Medicine 10/21/24
--- OUTSIDE RECORDS SUMMARY | 2024-11-30 06:08 | XMS_ITS | Encounter Summary ---
Author Organization [facility] Address [address] [place] [address] Care Team Providers Care E Commerce Marketing Manager Name Role Phone Cee Gorman MD Primary Care Provider + Encounter Details Date Type Department Care Team (Late st Contact Info) Description 11/13/2024 Lab Requisition [facility] Lab [address] [place] [address] Cee Gorman MD [address] [id number] Essential (primary) hypertension; Anemia, unspecified; Chronic kidney [...] Associated Diagnosis Comments COMPLETE BLOOD COUNT Routine 11/14/2024 6:01 AM [...] encounter Results * (ABNORMAL) Comprehensive metabolic panel (11/14/2024 6:01 AM EDT) Sodium 141 133 - 145 mmol/L LAB CHEMISTRY METHOD 11/14/2024 1:05 PM EDT [facility] Potassium 4.3 3.5 - 5.5 mmol/L LAB CHEMISTRY METHOD 11/14/2024 1:05 PM [facility] Chloride 108 96 - 110 mmol/L LAB CHEMISTRY METHOD 11/14/2024 1:05 PM [facility] CO2 27 21 - 32 mmol/L LAB CHEMISTRY METHOD 11/14/2024 1:05 PM [facility] Anion Gap 6 3 - 11 LAB CHEMISTRY METHOD 11/14/2024 1:05 PM [facility] Glucose 71 70 - 100 mg/dL LAB CHEMISTRY METHOD 11/14/2024 1:05 PM [facility] BUN 13 5 - 25 mg/dL LAB CHEMISTRY METHOD 11/14/2024 1:05 PM [facility] Creatinine 0.96 0.70 - 1.30 mg/dL LAB CHEMISTRY METHOD 11/14/2024 1:05 PM [facility] eGFR 81 >=60 mL/min/1. 73m2 LAB CHEMISTRY METHOD 11/14/2024 1:05 PM [facility] Comment:Calculation based on the Chronic Kidney Disease Epidemiology Collaboration (CKD-EPI) equation refit without adjustment for race. BUN/Creatinine Ratio 13.5 LAB CHEMISTRY METHOD 11/14/2024 1:05 PM [facility] Calcium 8.4(L) 8.5 - 10.5 mg/dL LAB CHEMISTRY METHOD 11/14/2024 1:05 PM [facility] AST (SGOT) 13 10 - 42 unit/L LAB CHEMISTRY METHOD 11/14/2024 1:05 PM [facility] ALT (SGPT) 17 10 - 60 unit/L LAB CHEMISTRY METHOD 11/14/2024 1:05 PM [facility] Alkaline Phosphatase 90 42 - 121 unit/L LAB CHEMISTRY METHOD 11/14/2024 1:05 PM [facility] Total Protein 6.0 6.0 - 8.0 g/dL LAB CHEMISTRY METHOD 11/14/2024 1:05 PM EDT [facility] Albumin 2.6(L) 3.2 - 5.0 g/dL LAB CHEMISTRY METHOD 11/14/2024 1:05 PM EDT [facility] Total Bilirubin 0.5 0.0 - 1.4 mg/dL LAB CHEMISTRY METHOD 11/14/2024 1:05 PM EDT [facility] Blood Venous blood specimen / Unknown Venipuncture / Unknown 11/14/2024 6:01 AM EDT 11/14/2024 11:13 AM EDT us Cee Gorman MD LAB BLOOD ORDERABLES Fin al Result [facility] [address] [place] [address], * (ABNORMAL) Complete blood count (11/14/2024 6:01 AM EDT) WBC 6.4 4.8 - 10.8 K/mcL LAB HEMETOLOGY METHOD 11/14/2024 1:08 PM [facility] RBC 3.60(L) 4.50 - 5.50 M/mcL LAB HEMETOLOGY METHOD 11/14/2024 1:08 PM [facility] Hemoglobin 11.3(L) 13.5 - 17.5 g/dL LAB HEMETOLOGY METHOD 11/14/2024 1:08 PM [facility] Hematocrit 35.4(L) 42.0 - 54.0 % LAB HEMETOLOGY METHOD 11/14/2024 1:08 PM [facility] MCV 99.2(H) 79.0 - 98.0 FL LAB HEMETOLOGY METHOD 11/14/2024 1:08 PM [facility] MCH 31.7 27.0 - 32.0 pcg LAB HEMETOLOGY METHOD 11/14/2024 1:08 PM EDT [facility] MCHC 31.9(L) 32.0 - 37.0 g/dL LAB HEMETOLOGY METHOD 11/14/2024 1:08 PM EDT [facility] RDW 13.7 11.0 - 15.0 % LAB HEMETOLOGY METHOD 11/14/2024 1:08 PM EDT [facility] Platelets 214 130 - 400 K/mcL LAB HEMETOLOGY METHOD 11/14/2024 1:08 PM EDT [facility] MPV 9.9 7.0 - 11.0 FL LAB HEMETOLOGY METHOD 11/14/2024 1:08 PM EDT [facility] NRBC 0.0 <1.0 % LAB HEMETOLOGY METHOD 11/14/2024 1:08 PM EDT [facility] NRBC Absolute 0.00 <0.10 K/mcL LAB HEMETOLOGY METHOD 11/14/2024 1:08 PM EDT [facility] Blood Venous blood specimen / Unknown Venipuncture / Unknown 11/14/2024 6:01 AM EDT 11/14/2024 11:13 AM EDT us Cee Gorman MD LAB BLOOD ORDERABLES Fin al Result [facility] LAB [address] [place] [address], documented in this encounter Visit Diagnoses Diagnosis Essential (primary) hypertension Unspecified essential hypertension Anemia, unspecified Chronic kidney disease, unspecified Other disorders of electrolyte and fluid balance, not elsewhere classified documented in this encounter Care Teams E Commerce Marketing Manager Relationship Specialty Start Date End Date Cee Gorman MD [address] [place] [address] PCP - General Family Medicine 10/21/24 documented as of this encounter
--- OUTSIDE RECORDS SUMMARY | 2024-11-30 06:08 | XMS_ITS | Encounter Summary ---
Author Organization [facility] Address [address] [place] [address] [place] [address] Phone Care Team Providers Care Saxophone Player Name Role Phone Miquel Lo DO Unavailable Miquel Lo DO Primary Care Provider Chaparrita Harper RN Unavailable Christy Novak TECHNICAL PROJECT COORDINATOR Unavailable Chaparrita Nicolas MD Unavailable [phone] Jerrod Sanchez DO Unavailable [phone] Reason for Visit * Reason Onset Date Comments FYI 10/06/2024 Encounter Details Date Type Department Care Team (Late st Contact Info) Description 10/06/2024 Telephone [facility] [address] [place] [address] Miquel Lo, DO 234 [facility] [address] [place] [address] [email or web address] FYI Social History Tobacco Use Types Packs/Day Years [...] 10/03/2024 Are you denied basic needs s [facility] as food, clothing, or medical care? No [...] as of this encounter Progress Notes * Oleg Donahue RN - 10/06/2024 9:29 AM EDT notified that pcp is out, advised d/c planing is per in patient provider discretion. FYI to pcp * Michelle Godoy - 10/06/2024 8:49 AM EDT Pt called in saying that pt is IN-PT at [facility] Subdural hematoma pt called to ask Dr Lo and state that pt should not be dis charged to home. I advised that PCP's do not comment of plans of care till discharge. Central Support Institutional Research Coordinator (Please do not reply to this user; this inbox is not monitored.) Thank you. documented in this encounter Plan of Treatment Upcoming Encounters Date Type Department Care Team (Late st Contact Info) Description 01/10/2025 2:30 PM EDT Office Visit [facility] Medicine [address] [place] [address] Miquel Lo, DO 234 [facility], [address] [place] [address] [email or web address] 05/18/2025 10:30 AM EST Office Visit [facility] [address] [place] [address] Logan Scott, DO [address] [place] [address] [email or web address] documented as of this encounter Goals Goal Patient Goal Type Associated Problems Recent Progress Patient-Stated? Author Adhere to prescribed treatment plan Care Plan Chronic Condition Self-ManageChaparrita Magdaleno, RN Increase participation in self-management activities Care [...] RN Note: Patient Agrees with goal priority: {yes/no:74041675} Patient Self-Management activities for this goal: {pick list:29369026} Task/Interventions: Increase participation in self-management activities Care Plan Chronic Condition Self-Managemen t No Chaparrita Harper RN Note: Patient Agrees with goal priority: {yes/no:00444193} Patient Self-Management activities for this goal: {pick list:96036960} Task/Interventions: Participation in sick day plan for condition Care Plan Chronic Condition Self-Managemen t No Chaparrita Harper RN Note: Patient Agrees with goal priority: {yes/no:09275635} Patient Self-Management activities for this goal: {pick list:92572535} Task/Interventions: Participation in telemedicine activities to monitor condition Care Plan Chronic Condition Self-Managemen t No Chaparrita Harper RN Note: Patient Agrees with goal priority: {yes/no:42202322} Patient Self-Management activities for this goal: {pick list:31262394} Task/Interventions: Understand symptoms and warning signs to report to Provider Care Plan Chronic Condition Self-Managemen t No Chaparrita Harper RN Note: Patient Agrees with goal priority: {yes/no:51716845} Patient Self-Management activities for this goal: {pick list:62346228} Task/Interventions: Improved control over condition Care Plan Chronic Condition Self-Managemen t No Chaparrita Harper RN Note: Patient Agrees with goal priority: {yes/no:19147998} Patient Self-Management activities for this goal: {pick list:91820287} Task/Interventions: No unplanned hospitalizations for condition Care Plan Chronic Condition Self-Managemen t No Chaparrita Harper RN Note: Patient Agrees with goal priority: {yes/no:89673624} Patient Self-Management activities for this goal: {pick list:60655675} Task/Interventions: Able to maintain current level of functioning Care Plan Chronic Condition Self-Managemen t No Chaparrita Harper RN Note: Patient Agrees with goal priority: {yes/no:25252335} Patient Self-Management activities for this goal: {pick list:70398933} Task/Interventions: Avoid environmental and psychosocial exposures to triggers that worsen condition Care Plan Chronic Condition Self-Managemen t No Chaparrita Harper RN Note: Patient Agrees with goal priority: {yes/no:07657963} Patient Self-Management activities for this goal: {pick list:45721946} Task/Interventions: documented as of this encounter Visit Diagnoses Not on filedocumented in this encounter Additional Health Concerns Active Problems Noted Date Diagnosed Date Chronic Condition Self-Management 07/09/2021 Chronic Condition Self-Management 01/20/2023 Assessment Noted Time PHQ-9 Depression Total Score: 9 06/03/19 25 6:33 PM EST PHQ-2 Depression Total Score: 4 06/03/19 25 6:33 PM EST documented as of this encounter Care Teams Saxophone Player Relationship Specialty Start Date End Date Miquel Lo LupisDO 234 [facility] [address] [place] [address] [email or web address] PCP - General 04/02/17 Miquel Lo DO 234 [facility] [address] [place] [address] [email or web address] Insurance Assigned Provider 07/04/23 Chaparrita Harper, RENALDO [address] [place] [address] [email or web address] Biostatistician 06/05/21 Christy Novak CNP [address] [place] [address] [email or web address] Nurse Practitioner Medical Oncology 05/05/22 Chaparrita Nicolas MD [address] [place] [address] [email or web address] Geriatric Medicine 06/20/22 Jerrod Sanchez DO [address] [place] [address] [email or web address] Hematology and Oncology 09/09/24 documented as of this encounter Additional Source Comments The information contained in this document represents components of the legal health record. It is not the complete legal health record.[facility]
--- OUTSIDE RECORDS SUMMARY | 2024-11-30 06:08 | XMS_ITS | Encounter Summary ---
Author Organization [facility] Address [address] [place] [address] [place] [address] Phone Care Team Providers Care House Registry Rn Name Role Phone Miquel Lo DO Unavailable Miquel Lo DO Primary Care Provider [phone] Chaparrita Harper RN Unavailable [phone] Christopher Dunham MD Unavailable [phone] Christy Novak STEWARD/STEWARDESS CHIEF CARGO VESSEL Unavailable Chaparrita Nicolas MD Unavailable Jerrod Sanchez DO Unavailable Encounter Details Date Type Department Care Team (Late st Contact Info) Description 03/05/2023 Procedure Pass [facility], Ct Scan - [address] [address] Social History Tobacco Use Types Packs/Day Years [...] Visit [facility] Medicine [address] [place] [address] Miquel Lo, DO 234 [facility] 7 [place] [address] 05/18/2025 10:30 AM EST Office Visit [facility] [address] [place] [address] Logan Scott, DO [address] [place] [address] documented as of this encounter Goals Goal [...] RN Note: Patient Agrees with goal priority: {yes/no:94647063} Patient Self-Management activities for this goal: {pick list:98873511} Task/Interventions: Increase participation in self-management activities Care Plan Chronic Condition Self-Managemen t No Chaparrita Harper RN Note: Patient Agrees with goal priority: {yes/no:59475377} Patient Self-Management activities for this goal: {pick list:74870972} Task/Interventions: Participation in sick day plan for condition Care Plan Chronic Condition Self-Managemen t No Chaparrita Harper RN Note: Patient Agrees with goal priority: {yes/no:34858062} Patient Self-Management activities for this goal: {pick list:87519244} Task/Interventions: Participation in telemedicine activities to monitor condition Care Plan Chronic Condition Self-Managemen t No Chaparrita Harper RN Note: Patient Agrees with goal priority: {yes/no:51287037} Patient Self-Management activities for this goal: {pick list:57522048} Task/Interventions: Understand symptoms and warning signs to report to Provider Care Plan Chronic Condition Self-Managemen t No Chaparrita Harper RN Note: Patient Agrees with goal priority: {yes/no:52540759} Patient Self-Management activities for this goal: {pick list:41154617} Task/Interventions: Improved control over condition Care Plan Chronic Condition Self-Managemen t No Chaparrita Harper RN Note: Patient Agrees with goal priority: {yes/no:81850762} Patient Self-Management activities for this goal: {pick list:18141024} Task/Interventions: No unplanned hospitalizations for condition Care Plan Chronic Condition Self-Managemen t No Chaparrita Harper RN Note: Patient Agrees with goal priority: {yes/no:52168546} Patient Self-Management activities for this goal: {pick list:62502528} Task/Interventions: Able to maintain current level of functioning Care Plan Chronic Condition Self-Managemen t No Chaparrita Harper RN Note: Patient Agrees with goal priority: {yes/no:82478694} Patient Self-Management activities for this goal: {pick list:50337491} Task/Interventions: Avoid environmental and psychosocial exposures to triggers that worsen condition Care Plan Chronic Condition Self-Managemen t No Chaparrita Harper RN Note: Patient Agrees with goal priority: {yes/no:61357730} Patient Self-Management activities for this goal: {pick list:04246636} Task/Interventions: documented as of this encounter Visit Diagnoses Not on filedocumented in this encounter Additional Health Concerns Active Problems Noted Date Diagnosed Date Chronic Condition Self-Management 07/09/2021 Chronic Condition Self-Management 01/20/2023 Assessment Noted Time PHQ-9 Depression Total Score: 5 01/20/20 10:43 AM EDT PHQ-2 Depression Total Score: 2 01/20/20 10:43 AM EDT documented as of this encounter Care Teams House Registry Rn Relationship Specialty Start Date End Date Miquel Lo DO 234 [facility], [facility] 7 [place] [address] [email or web address] PCP - General 04/02/17 Miquel Lo DO 234 [facility] 7 [place] [address] [email or web address] Insurance Assigned Provider 07/04/23 Chaparrita Harper RN [address] [place] [address] [email or web address] Chemical Lab Supervisor 06/05/21 Christopher Dunham MD [address] [place] [address] [address] [place] [address] [email or web address] Primary Oncologist Medical Oncology 04/22/22 09/08/24 Christy Novak CNP [address] [place] [address] [email or web address] Nurse Practitioner Medical Oncology 05/05/22 Chaparrita Nicolas MD [address] [place] [address] [email or web address] Geriatric Medicine 06/20/22 Jerrod Sanchez DO [address] [place] [address] [email or web address] Hematology and Oncology 09/09/24 documented as of this encounter Additional Source Comments The information contained in this document represents components of the legal health record. It is not the complete legal health record.[facility]
--- OUTSIDE RECORDS SUMMARY | 2024-11-30 06:08 | XMS_ITS | Encounter Summary ---
Author Organization [facility] Address [address] [place] [address] [place] [address] Phone Care Team Providers Care Copper Miner Blasting Name Role Phone Miquel Lo DO Unavailable Miquel Lo DO Primary Care Provider Chaparrita Harper RN Unavailable [phone] Christopher Dunham MD Unavailable [phone] Christy Novak LEASING PROFESSIONAL Unavailable Chaparrita Nicolas MD Unavailable [phone] Jerrod Sanchez DO Unavailable [phone] Encounter Details Date Type Department Care Team (Late st Contact Info) Description 02/14/2023 Procedure Pass [facility], Ct Scan - [address] [address] Social History Tobacco Use Types Packs/Day Years [...] 02/14/2023 1:43 AM Rikki Anderson, RN * Reynolds Suicide Severity Rating Scale (Screener/Recent Self-Report) Question [...] Description 01/10/2025 2:30 PM EDT Office Visit [address] [id number] Miquel Lo, DO 234 [facility], [address] [place] [address] [email or web address] 05/18/2025 10:30 AM EST Office Visit [facility] [address] [place] [address] Logan Scott, DO [address] [place] [address] [email or web address] documented as of this encounter Goals Goal [...] RN Note: Patient Agrees with goal priority: {yes/no:80252123} Patient Self-Management activities for this goal: {pick list:34917311} Task/Interventions: Increase participation in self-management activities Care Plan Chronic Condition Self-Managemen t No Chaparrita Harper RN Note: Patient Agrees with goal priority: {yes/no:50644931} Patient Self-Management activities for this goal: {pick list:62892739} Task/Interventions: Participation in sick day plan for condition Care Plan Chronic Condition Self-Managemen t No Chaparrita Harper RN Note: Patient Agrees with goal priority: {yes/no:71207621} Patient Self-Management activities for this goal: {pick list:51109568} Task/Interventions: Participation in telemedicine activities to monitor condition Care Plan Chronic Condition Self-Managemen t No Chaparrita Harper RN Note: Patient Agrees with goal priority: {yes/no:91408812} Patient Self-Management activities for this goal: {pick list:20149364} Task/Interventions: Understand symptoms and warning signs to report to Provider Care Plan Chronic Condition Self-Managemen t No Chaparrita Harper RN Note: Patient Agrees with goal priority: {yes/no:08697231} Patient Self-Management activities for this goal: {pick list:87194842} Task/Interventions: Improved control over condition Care Plan Chronic Condition Self-Managemen t No Chaparrita Harper RN Note: Patient Agrees with goal priority: {yes/no:07815343} Patient Self-Management activities for this goal: {pick list:09733014} Task/Interventions: No unplanned hospitalizations for condition Care Plan Chronic Condition Self-Managemen t No Chaparrita Harper RN Note: Patient Agrees with goal priority: {yes/no:55682064} Patient Self-Management activities for this goal: {pick list:63530002} Task/Interventions: Able to maintain current level of functioning Care Plan Chronic Condition Self-Managemen t No Chaparrita Harper RN Note: Patient Agrees with goal priority: {yes/no:91372867} Patient Self-Management activities for this goal: {pick list:84455334} Task/Interventions: Avoid environmental and psychosocial exposures to triggers that worsen condition Care Plan Chronic Condition Self-Managemen t No Chaparrita Harper, RN Note: Patient Agrees with goal priority: {yes/no:72579954} Patient Self-Management activities for this goal: {pick list:01810779} Task/Interventions: documented as of this encounter Visit Diagnoses Not on filedocumented in this encounter Additional Health Concerns Active Problems Noted Date Diagnosed Date Chronic Condition Self-Management 07/09/2021 Chronic Condition Self-Management 01/20/2023 Assessment Noted Time PHQ-9 Depression Total Score: 5 01/20/20 10:43 AM EDT PHQ-2 Depression Total Score: 2 01/20/20 10:43 AM EDT documented as of this encounter Care Teams Copper Miner Blasting Relationship Specialty Start Date End Date Miquel Lo DO [address] [place] [address] [email or web address] PCP - General 04/02/17 Miquel Lo DO [address] [place] [address] [email or web address] Insurance Assigned Provider 07/04/23 Chaparrita Harper, RENALDO [address] [place] [address] [email or web address] iCMP Bioinformatics Developer 06/05/21 Christopher Dunham MD [address] [place] [address] [address] [address] [email or web address] Primary Oncologist Medical Oncology 04/22/22 09/08/24 Christy Novak CNP [address] [place] [address] [email or web address] Nurse Practitioner Medical Oncology 05/05/22 Chaparrita Nicolas MD [address] [place] [address] [email or web address] Geriatric Medicine 06/20/22 Jerrod Sanchez DO [address] [place] [address] [email or web address] Hematology and Oncology 09/09/24 documented as of this encounter Additional Source Comments The information contained in this document represents components of the legal health record. It is not the complete legal health record.[facility]
--- OUTSIDE RECORDS SUMMARY | 2024-11-30 06:08 | XMS_ITS | Encounter Summary ---
Author Organization [employer] Address [address] [place] [address] Care Team Providers Care Terrapin Fisher Name Role Phone Cee Gorman MD Primary Care Provider + Encounter Details Date Type Department Care Team (Late st Contact Info) Description 10/22/2024 Lab Requisition [facility] - Main Lab [address] [place] [address] Cee Gorman MD [address] [phone] Essential (primary) hypertension; Anemia, unspecified; Chronic kidney [...] Associated Diagnosis Comments COMPLETE BLOOD COUNT Routine 10/24/2024 6:49 AM [...] encounter Results * (ABNORMAL) Comprehensive metabolic panel (10/24/2024 6:49 AM EDT) Sodium 140 133 - 145 mmol/L LAB CHEMISTRY METHOD 10/24/2024 12:31 PM EDT [facility] Potassium 3.8 3.5 - 5.5 mmol/L LAB CHEMISTRY METHOD 10/24/2024 12:[address] [facility] Chloride 109 96 - 110 mmol/L LAB CHEMISTRY METHOD 10/24/2024 12:[address] [facility] CO2 25 21 - 32 mmol/L LAB CHEMISTRY METHOD 10/24/2024 12:[address] [facility] Anion Gap 6 3 - 11 LAB CHEMISTRY METHOD 10/24/2024 12:[address] [facility] Glucose 61(L) 70 - 100 mg/dL LAB CHEMISTRY METHOD 10/24/2024 12:[address] [facility] BUN 14 5 - 25 mg/dL LAB CHEMISTRY METHOD 10/24/2024 12:[address] [facility] Creatinine 0.98 0.70 - 1.30 mg/dL LAB CHEMISTRY METHOD 10/24/2024 12:[address] [facility] eGFR 79 >=60 mL/min/1. 73m2 LAB CHEMISTRY METHOD 10/24/2024 12:[address] [facility] Comment:Calculation based on the Chronic Kidney Disease Epidemiology Collaboration (CKD-EPI) equation refit without adjustment for race. BUN/Creatinine Ratio 14.3 LAB CHEMISTRY METHOD 10/24/2024 12:[address] [facility] Calcium 8.3(L) 8.5 - 10.5 mg/dL LAB CHEMISTRY METHOD 10/24/2024 12:[address] [facility] AST (SGOT) 22 10 - 42 unit/L LAB CHEMISTRY METHOD 10/24/2024 12:[address] [facility] ALT (SGPT) 22 10 - 60 unit/L LAB CHEMISTRY METHOD 10/24/2024 12:[address] [facility] Alkaline Phosphatase 100 42 - 121 unit/L LAB CHEMISTRY METHOD 10/24/2024 12:[address] [facility] Total Protein 5.7(L) 6.0 - 8.0 g/dL LAB CHEMISTRY METHOD 10/24/2024 12:31 PM EDT [facility] Albumin 2.5(L) 3.2 - 5.0 g/dL LAB CHEMISTRY METHOD 10/24/2024 12:31 PM EDT [facility] Total Bilirubin 0.6 0.0 - 1.4 mg/dL LAB CHEMISTRY METHOD 10/24/2024 12:31 PM EDT [facility] Blood Venous blood specimen / Unknown Venipuncture / Unknown 10/24/2024 6:49 AM EDT 10/24/2024 10:59 AM EDT us Cee Gorman MD LAB BLOOD ORDERABLES Fin al Result [facility] [address] [place] [address], * (ABNORMAL) Complete blood count (10/24/2024 6:49 AM EDT) WBC 5.7 4.8 - 10.8 K/mcL LAB HEMETOLOGY METHOD 10/24/2024 12:[address] [facility] RBC 3.40(L) 4.50 - 5.50 M/mcL LAB HEMETOLOGY METHOD 10/24/2024 12:[address] [facility] Hemoglobin 10.9(L) 13.5 - 17.5 g/dL LAB HEMETOLOGY METHOD 10/24/2024 12:[address] [facility] Hematocrit 33.4(L) 42.0 - 54.0 % LAB HEMETOLOGY METHOD 10/24/2024 12:[address] [facility] MCV 98.5(H) 79.0 - 98.0 FL LAB HEMETOLOGY METHOD 10/24/2024 12:[address] [facility] MCH 32.2(H) 27.0 - 32.0 pcg LAB HEMETOLOGY METHOD 10/24/2024 12:10 PM EDT [facility] MCHC 32.6 32.0 - 37.0 g/dL LAB HEMETOLOGY METHOD 10/24/2024 12:10 PM EDT [facility] RDW 13.9 11.0 - 15.0 % LAB HEMETOLOGY METHOD 10/24/2024 12:10 PM EDT [facility] Platelets 199 130 - 400 K/mcL LAB HEMETOLOGY METHOD 10/24/2024 12:10 PM EDT [facility] MPV 10.2 7.0 - 11.0 FL LAB HEMETOLOGY METHOD 10/24/2024 12:10 PM EDT [facility] NRBC 0.0 <1.0 % LAB HEMETOLOGY METHOD 10/24/2024 12:10 PM EDT [facility] NRBC Absolute 0.00 <0.10 K/mcL LAB HEMETOLOGY METHOD 10/24/2024 12:10 PM EDT [facility] Blood Venous blood specimen / Unknown Venipuncture / Unknown 10/24/2024 6:49 AM EDT 10/24/2024 10:59 AM EDT us Cee Gorman MD LAB BLOOD ORDERABLES Fin al Result [facility] [address] [place] [address], documented in this encounter Visit Diagnoses Diagnosis Essential (primary) hypertension Unspecified essential hypertension Anemia, unspecified Chronic kidney disease, unspecified Other disorders of electrolyte and fluid balance, not elsewhere classified documented in this encounter Care Teams Terrapin Fisher Relationship Specialty Start Date End Date Cee Gorman MD [address] [place] [address] PCP - General Family Medicine 10/21/24 documented as of this encounter
--- OUTSIDE RECORDS SUMMARY | 2024-11-30 06:08 | XMS_ITS | Encounter Summary ---
Author Organization [facility] Address [address] [place] [address] Phone Care Team Providers Care Proj Engineer Name Role Phone Miquel Lo DO Unavailable Miquel Lo DO Primary Care Provider Rikki Shen OT Unavailable Chaparrita Harper RN Unavailable [phone] Christopher Dunham MD Unavailable [phone] Christy Novak SYSTEMS ANALYST DEVELOPER Unavailable Chaparrita Nicolas MD Unavailable Jerrod Sanchez DO Unavailable Encounter Details Date Type Department Care Team (Late st Contact Info) Description 07/01/2020 Procedure Pass [facility] Echo Lab [address] [place] [address] Social History Tobacco Use Types Packs/Day Years [...] 01/10/2025 2:30 PM EDT Office Visit [facility] Medicine [address] [place] [address] Miquel Lo, DO 234 [facility] 7 [place] [address] [email or web address] 05/18/2025 10:30 AM EST Office Visit [facility] Geriatrics [address] [place] [address] Logan Scott DO 22 [place] [address] [email or web address] documented as of this encounter Visit Diagnoses Not on filedocumented in this encounter Additional Health Concerns Infection Onset Date Last Indicated Resolved Time CoV-Risk 12/05/2020 12/05/2020 12/15/2020 1:25 AM EDT Assessment Noted Time PHQ-2 Depression Total Score: 2 08/31/19 20 9:52 AM EDT documented as of this encounter Care Teams Proj Engineer Relationship Specialty Start Date End Date Miquel Lo DO [address] [address] [email or web address] PCP - General 04/02/17 Miquel Lo DO [address] [place] [address] [email or web address] Insurance Assigned Provider 07/04/23 Rikki Shen OT [address] [place] [address] [email or web address] Job Putter Up And Ticket PreparerIndustrial Safety And Health Specialist Therapy 07/02/20 07/02/20 Chaparrita Harper, RN [address] [place] [address] [email or web address] iCMP Job Putter Up And Ticket Preparer 06/05/21 Christopher Dunham MD [address] [place] [address] [address] [place] [address] [email or web address] Primary Oncologist Medical Oncology 04/22/22 09/08/24 Christy Novak CNP [address] [place] [address] [email or web address] Nurse Practitioner Medical Oncology 05/05/22 Chaparrita Nicolas MD [address] [place] [address] [email or web address] Geriatric Medicine 06/20/22 Jerrod Sanchez DO [address] [place] [address] [email or web address] Hematology and Oncology 09/09/24 documented as of this encounter Additional Source Comments The information contained in this document represents components of the legal health record. It is not the complete legal health record.[facility]
--- OUTSIDE RECORDS SUMMARY | 2024-11-30 06:08 | XMS_ITS | Encounter Summary ---
Author Organization [employer] Address [address] [place] [address] Care Team Providers Care Barker Operator Name Role Phone Cee Gorman MD Primary Care Provider + Encounter Details Date Type Department Care Team (Late st Contact Info) Description 11/02/2024 Lab Requisition [facility] - Main Lab 299 [facility] [place] [address] Cee Gorman MD [address] [address] Altered mental status, unspecified; Frequency of micturition Social History Tobacco Use Types Packs/Day Years [...] Procedure Name Priority Date/Time Associated Diagnosis Comments URINALYSIS WITH REFLEX MICROSCOPIC AND CULTURE Routine 11/02/2024 1:50 PM EDT Altered mental status, unspecified Frequency of micturition LOVELL URINE CULTURE TUBE Routine 11/02/2024 1:50 PM EDT Altered mental status, unspecified Frequency of micturition URINALYSIS WITH REFLEX MICROSCOPIC AND CULTURE Routine 11/02/2024 1:50 PM EDT Altered mental status, unspecified Frequency of micturition CULTURE URINE Routine 11/02/2024 1:50 PM EDT Altered mental status, unspecified Frequency of micturition documented in this encounter Results * (ABNORMAL) Culture urine (11/02/2024 1:50 PM EDT) Culture, Urine 50,000-100,000 CFU/mL Escherichia coli(A) GLADYS 11/05/2024 8:45 AM EDT [facility] Comment: The organism value for this result has been updated. These results have been appended to the previously preliminary verified report. Culture, Urine 50,000-100,000 CFU/mL Enterococcus faecalis(A) GLADYS 11/05/2024 8:45 AM EDT [facility] Comment: The organism value for this [...] GLADYS <=0.25 ug/ml: Susceptible Escherichia coli Amikacin GLADYS 2 ug/ml: Susceptible Escherichia coli Gentamicin GLADYS [...] Enterococcus faecalis Nitrofurantoin GLADYS <=16 ug/ml: Susceptible Cee Gorman MD LAB MICROBIOLOGY - GENER AL ORDERABLES Final Result Performing Organization Address [facility]/ZIP Co de Phone Number [facility] [address] [place] [address], [place] [phone] * Lovell urine culture tube (11/02/2024 1:50 PM EDT) [facility] Extra Tube Hold for add-ons. 11/02/2024 6:01 PM EDT [facility] Comment:Auto resulted. Urine Urine specimen obtained by clean catch procedure / Unknown 11/02/2024 1:50 PM EDT 11/02/2024 4:26 PM EDT Cee Gorman MD LAB URINE ORDERABLES Fin al Result Performing Organization Address [facility]/ZIP Co de Phone Number [facility] [address] [place] [address], [place] [phone] * (ABNORMAL) Urinalysis with reflex microscopic and culture (11/02/2024 1:50 PM EDT) [facility] Specific [place] Urine 1.022 1.003 - 1.030 LAB URINALYSIS - AUTOMATED METHOD 11/02/2024 5:34 PM EDT [facility] pH, Urine 6.0 5.0 - 8.0 pH LAB URINALYSIS - AUTOMATED METHOD 11/02/2024 5:34 PM EDT [facility] Leukocytes, Urine Moderate(A) Negative LAB URINALYSIS - AUTOMATED METHOD 11/02/2024 5:34 PM EDT [facility] Nitrite, Urine Negative Negative LAB URINALYSIS - AUTOMATED METHOD 11/02/2024 5:34 PM EDT [facility] Protein, Urine 300(A) <=Trace mg/dL LAB URINALYSIS - AUTOMATED METHOD 11/02/2024 5:34 PM [facility] Glucose, Urine Negative Negative mg/dL LAB URINALYSIS - AUTOMATED METHOD 11/02/2024 5:34 PM [facility] Ketones, Urine Negative Negative mg/dL LAB URINALYSIS - AUTOMATED METHOD 11/02/2024 5:34 PM [facility] Urobilinogen , Urine 1.0 0.2 - 1.0 mg/dL LAB URINALYSIS - AUTOMATED METHOD 11/02/2024 5:34 PM [facility] Bilirubin, Urine Negative Negative LAB URINALYSIS - AUTOMATED METHOD 11/02/2024 5:34 PM [facility] Blood, Urine Large(A) Negative LAB URINALYSIS - AUTOMATED METHOD 11/02/2024 5:34 PM [facility] RBC, Urine 2,963.5(H) 0 - 4 /HPF LAB URINALYSIS - AUTOMATED METHOD 11/02/2024 5:34 PM [facility] WBC, Urine 270.8(H) 0 - 4 /HPF LAB URINALYSIS - AUTOMATED METHOD 11/02/2024 5:34 PM [facility] Squamous Epithelial, Urine 13 0 - 60 /LPF LAB URINALYSIS - AUTOMATED METHOD 11/02/2024 5:34 PM [facility] Crystals, Urine Light Calcium Oxalate crystals. /LPF LAB URINALYSIS - AUTOMATED METHOD 11/02/2024 5:34 PM [facility] Bacteria, Urine Negative Negative /HPF LAB URINALYSIS - AUTOMATED METHOD 11/02/2024 5:34 PM [facility] Hyaline Casts, Urine 2.1 0 - 3 /LPF LAB URINALYSIS - AUTOMATED METHOD 11/02/2024 5:34 PM [facility] Urine Urine specimen obtained by clean catch procedure / Unknown Non-blood Collection / Unknown 11/02/2024 1:50 PM EDT 11/02/2024 4:22 PM EDT Cee Gorman MD LAB URINE ORDERABLES Luis E namita Result - Final [facility] ([facility]) [facility] [address] [place] [address], documented in this encounter Visit Diagnoses Diagnosis Altered mental status, unspecified Frequency of micturition Urinary frequency documented in this encounter Care Teams Barker Operator Relationship Specialty Start Date End Date Cee Gorman MD [address] [place] [address] PCP - General Family Medicine 10/21/24 documented as of this encounter
--- OUTSIDE RECORDS SUMMARY | 2024-11-30 06:08 | XMS_ITS | Encounter Summary ---
Author Organization [facility] Address [address] [place] [address] Phone Care Team Providers Care Polysom Tech Name Role Phone Miquel Lo DO Unavailable Miquel Lo DO Primary Care Provider Rikki Shen OT Unavailable Chaparrita Harper RN Unavailable Christopher Dunham MD Unavailable Christy Novak SOCIAL SERVICES ANALYST Unavailable Chaparrita Nicolas MD Unavailable Jerrod Sanchez DO Unavailable [phone] Encounter Details Date Type Department Care Team (Late st Contact Info) Description 07/02/2020 Procedure Pass Non-Invasive Cardiology [address] [place] [address] Social History Tobacco Use Types Packs/Day Years [...] PM EDT Office Visit [facility] Medicine [address] [place] [address] Miquel Lo DO [address] [address] [email or web address] 05/18/2025 10:30 AM EST Office Visit [facility] Geriatrics [address] [place] [address] Logan Scott DO 22 [place] [address] [email or web address] documented as of this encounter Visit Diagnoses Not on filedocumented in this encounter Additional Health Concerns Infection Onset Date Last Indicated Resolved Time CoV-Risk 12/05/2020 12/05/2020 12/15/2020 1:2 5 AM EDT Assessment Noted Time PHQ-2 Depression Total Score: 2 08/31/19 20 9:52 AM EDT documented as of this encounter Care Teams Polysom Tech Relationship Specialty Start Date End Date Miquel Lo DO 234 [facility] 7 [place] [address] [email or web address] PCP - General 04/02/17 Miquel Lo DO [address] [place] [address] 7 [place] [address] [email or web address] Insurance Assigned Provider 07/04/23 Rikki Shen OT [address] [place] [address] [email or web address] Transitions Felt Machine MechanicNewspaper Photojournalist Therapy 07/02/20 07/02/20 Chaparrita Harper, RN [address] [place] [address] [email or web address] iCMP Felt Machine Mechanic 06/05/21 Christopher Dunham MD [address] [place] [address] [address] [place] [address] [email or web address] Primary Oncologist Medical Oncology 04/22/22 09/08/24 Christy Novak CNP [address] [place] [address] [email or web address] Nurse Practitioner Medical Oncology 05/05/22 Chaparrita Nicolas MD [address] [place] [address] [email or web address] Geriatric Medicine 06/20/22 Jerrod Sanchez DO [address] [place] [address] [email or web address] Hematology and Oncology 09/09/24 documented as of this encounter Additional Source Comments The information contained in this document represents components of the legal health record. It is not the complete legal health record.[facility]
--- OUTSIDE RECORDS SUMMARY | 2024-11-30 06:09 | XMS_ITS | Encounter Summary ---
Author Organization [facility] Address [address] [place] [address] [place] [address] Phone Care Team Providers Care Accounting Manager Controller Name Role Phone Miquel Lo DO Unavailable Miquel Lo DO Primary Care Provider Chaparrita Harper RN Unavailable Christy Novak HAND PROFILER Unavailable Chaparrita Nicolas MD Unavailable [phone] Jerrod Sanchez DO Unavailable [phone] Reason for Referral * MRI/CAT Scan - Closed Specialty Diagnoses / Procedures Referred By Sheyla bull Referred To Contact Radiology Procedures Outside CT Head/Neck Report Only Yumiko Peacock PA [address] [place] [address] Phone: tel: fax: mailto:[email or web address] Referral ID Status Reason Start Date Expiration Date Visits Re quested Visits Authorized [id number] Closed 11/23/2024 1 1 Encounter Details Date Type Department Care Team (Late st Contact Info) Description 11/23/2024 Orders Only [facility] [address] [place] [address] Yumiko Peacock PA [address] [place], [place] [id number] [email or web address] Social History Tobacco Use Types Packs/Day Years [...] Description 01/10/2025 2:30 PM EDT Office Visit [facility] Medicine [address] [place] [address] Miquel Lo, DO 234 [facility] 7 [place] [address] [email or web address] 05/18/2025 10:30 AM EST Office Visit [facility] Geriatrics [address] [place] [address] Logan Scott, DO 22 [place] [address] [email or web address] documented as of this encounter Goals Goal [...] RN Note: Patient Agrees with goal priority: {yes/no:[id number]} Patient Self-Management activities for this goal: {pick list:84207222} Task/Interventions: Increase participation in self-management activities Care Plan Chronic Condition Self-Managemen t No Chaparrita Harper RN Note: Patient Agrees with goal priority: {yes/no:57386757} Patient Self-Management activities for this goal: {pick list:83106862} Task/Interventions: Participation in sick day plan for condition Care Plan Chronic Condition Self-Managemen t No Chaparrita Harper RN Note: Patient Agrees with goal priority: {yes/no:92089016} Patient Self-Management activities for this goal: {pick list:65909042} Task/Interventions: Participation in telemedicine activities to monitor condition Care Plan Chronic Condition Self-Managemen t No Chaparrita Harper RN Note: Patient Agrees with goal priority: {yes/no:65725589} Patient Self-Management activities for this goal: {pick list:00783870} Task/Interventions: Understand symptoms and warning signs to report to Provider Care Plan Chronic Condition Self-Managemen t No Chaparrita Harper RN Note: Patient Agrees with goal priority: {yes/no:80101021} Patient Self-Management activities for this goal: {pick list:81383963} Task/Interventions: Improved control over condition Care Plan Chronic Condition Self-Managemen t No Chaparrita Harper RN Note: Patient Agrees with goal priority: {yes/no:30927306} Patient Self-Management activities for this goal: {pick list:07790437} Task/Interventions: No unplanned hospitalizations for condition Care Plan Chronic Condition Self-Managemen t No Chaparrita Harper RN Note: Patient Agrees with goal priority: {yes/no:25200221} Patient Self-Management activities for this goal: {pick list:32355647} Task/Interventions: Able to maintain current level of functioning Care Plan Chronic Condition Self-Managemen t No Chaparrita Harper RN Note: Patient Agrees with goal priority: {yes/no:96315311} Patient Self-Management activities for this goal: {pick list:44867439} Task/Interventions: Avoid environmental and psychosocial exposures to triggers that worsen condition Care Plan Chronic Condition Self-Managemen t No Chaparrita Harper RN Note: Patient Agrees with goal priority: {yes/no:97541732} Patient Self-Management activities for this goal: {pick list:15196857} Task/Interventions: documented as of this encounter Procedures Procedure Name Priority Date/Time Associated Diagnosis Comments OUTSIDE CT HEAD/NECK REPORT ONLY Routine 11/23/2024 9:26 AM EDT documented in this encounter Results * Outside CT Head/Neck Report Only (11/23/2024 9:26 AM EDT) Yumiko THOMAS IMG CT HEAD/NECK Final R esult documented in this encounter Visit Diagnoses Not on filedocumented in this encounter Additional Health Concerns Active Problems Noted Date Diagnosed Date Chronic Condition Self-Management 07/09/2021 Chronic Condition Self-Management 01/20/2023 Assessment Noted Time PHQ-9 Depression Total Score: 9 06/03/19 25 6:33 PM EST PHQ-2 Depression Total Score: 4 06/03/19 25 6:33 PM EST documented as of this encounter Care Teams Accounting Manager Controller Relationship Specialty Start Date End Date Miquel Lo LupisDO 234 [facility] 7 [place] [address] [email or web address] PCP - General 04/02/17 Miquel Lo DO 234 [facility] 7 [place] [address] [email or web address] Insurance Assigned Provider 07/04/23 Chaparrita Harper, RENALDO [address] [place] [address] [email or web address] iCMP Volunteer Services Director 06/05/21 Christy Novak CNP 30 [place] [address] [email or web address] Nurse Practitioner Medical Oncology 05/05/22 Chaparrita Nicolas MD 30 [place] [address] [email or web address] Geriatric Medicine 06/20/22 Jerrod Sanchez DO 30 [place] [address] [email or web address] Hematology and Oncology 09/09/24 documented as of this encounter Additional Source Comments The information contained in this document represents components of the legal health record. It is not the complete legal health record.[facility]
--- OUTSIDE RECORDS SUMMARY | 2024-11-30 06:09 | XMS_ITS | Encounter Summary ---
Author Organization [facility] Address [address] [place] [phone] Phone Care Team Providers Care Salmon Gillnet Vessel Operator Name Role Phone Miquel Lo DO Unavailable Miquel Lo DO Primary Care Provider [phone] Chaparrita Harper RN Unavailable [phone] Christy Novak HOG GRADER Unavailable Chaparrita Nicolas MD Unavailable Jerrod Sanchez DO Unavailable [phone] Reason for Referral * MRI/CAT Scan - Closed Specialty Diagnoses / Procedures Referred By Sheyla bull Referred To Contact Radiology Procedures Outside CT Imaging Report Only [facility] [address] [place] [address] Phone: tel: fax: Referral ID Status Reason Start Date Expiration Date Visits Re quested Visits Authorized [id number] Closed 11/22/2024 1 1 Encounter Details Date Type Department Care Team (Late st Contact Info) Description 11/22/2024 Orders Only [facility] [address] [place] [address] Candis Mccormack MD [address] [place] [id number] Social History Tobacco Use Types Packs/Day [...] Description 01/10/2025 2:30 PM EDT Office Visit [facility] [address] [place] [address] Miquel Lo, DO [address] [facility], [address] [place] [address] [email or web address] 05/18/2025 10:30 AM EST Office Visit [facility] [address] [place] [address] Logan Scott, DO [address] [place] [address] [email or web address] documented as of this encounter Goals Goal [...] Plan Chronic Condition Self-Managemen t No Chaparrita Harpre, RN No unplanned hospitalizations for condition Care Plan Chronic Condition Self-Managemen t No Chaparrita Harper, RN Able to maintain current level of [...] RN Note: Patient Agrees with goal priority: {yes/no:[id number]} Patient Self-Management activities for this goal: {pick list:[id number]} Task/Interventions: Increase participation in self-management activities Care Plan Chronic Condition Self-Managemen t No Chaparrita Harper RN Note: Patient Agrees with goal priority: {yes/no:38130994} Patient Self-Management activities for this goal: {pick list:40608035} Task/Interventions: Participation in sick day plan for condition Care Plan Chronic Condition Self-Managemen t No Chaparrita Harper RN Note: Patient Agrees with goal priority: {yes/no:57283985} Patient Self-Management activities for this goal: {pick list:[id number]} Task/Interventions: Participation in telemedicine activities to monitor condition Care Plan Chronic Condition Self-Managemen t No Chaparrita Harper RN Note: Patient Agrees with goal priority: {yes/no:19690211} Patient Self-Management activities for this goal: {pick list:42215184} Task/Interventions: Understand symptoms and warning signs to report to Provider Care Plan Chronic Condition Self-Managemen t No Chaparrita Harper RN Note: Patient Agrees with goal priority: {yes/no:88902749} Patient Self-Management activities for this goal: {pick list:26030545} Task/Interventions: Improved control over condition Care Plan Chronic Condition Self-Managemen t No Chaparrita Harper RN Note: Patient Agrees with goal priority: {yes/no:84632602} Patient Self-Management activities for this goal: {pick list:94068074} Task/Interventions: No unplanned hospitalizations for condition Care Plan Chronic Condition Self-Managemen t No Chaparrita Harper RN Note: Patient Agrees with goal priority: {yes/no:79805228} Patient Self-Management activities for this goal: {pick list:45749440} Task/Interventions: Able to maintain current level of functioning Care Plan Chronic Condition Self-Managemen t No Chaparrita Harper RN Note: Patient Agrees with goal priority: {yes/no:42024571} Patient Self-Management activities for this goal: {pick list:35692090} Task/Interventions: Avoid environmental and psychosocial exposures to triggers that worsen condition Care Plan Chronic Condition Self-Managemen t No Chaparrita Harper RN Note: Patient Agrees with goal priority: {yes/no:48249985} Patient Self-Management activities for this goal: {pick list:88718453} Task/Interventions: documented as of this encounter Procedures Procedure Name Priority Date/Time Associated Diagnosis Comments OUTSIDE CT IMAGING REPORT ONLY Routine 11/22/2024 9:16 AM EDT documented in this encounter Results * Outside CT Imaging Report Only (11/22/2024 9:16 AM EDT) us Historical Provider MD LEBRON CT Final Res ult documented in this encounter Visit Diagnoses Not on filedocumented in this encounter Additional Health Concerns Active Problems Noted Date Diagnosed Date Chronic Condition Self-Management 07/09/2021 Chronic Condition Self-Management 01/20/2023 Assessment Noted Time PHQ-9 Depression Total Score: 9 06/03/19 25 6:33 PM EST PHQ-2 Depression Total Score: 4 06/03/19 25 6:33 PM EST documented as of this encounter Care Teams Salmon Gillnet Vessel Operator Relationship Specialty Start Date End Date Miquel Lo DO [address] [place] [address] [address] [place] [address] [email or web address] PCP - General 04/02/17 Miquel Lo DO [address] [place] [address] [address] [place] [address] [email or web address] Insurance Assigned Provider 07/04/23 Chaparrita Harper, RENALDO [address] [place] [address] [email or web address] Button Puncher 06/05/21 Christy Novak CNP [address] [place] [address] [email or web address] Nurse Practitioner Medical Oncology 05/05/22 Chaparrita Nicolas MD [address] [place] [address] [email or web address] Geriatric Medicine 06/20/22 Jerrod Sanchez DO [address] [place] [id number] [email or web address] Hematology and Oncology 09/09/24 documented as of this encounter Additional Source Comments The information contained in this document represents components of the legal health record. It is not the complete legal health record.[facility]
--- OUTSIDE RECORDS SUMMARY | 2024-11-30 06:09 | XMS_ITS | Clinical Summary ---
Author Organization [facility] Address [address] [place] [address] [place] [id number] Phone Care Team Providers Care Twister Tender Name Role Phone Miquel Lo DO Unavailable Miquel Lo DO Primary Care Provider Chaparrita Harper RN Unavailable Christy Novak CNP Unavailable Chaparrita Nicolas MD Unavailable Jerrod Sanchez DO Unavailable Allergies No known active allergies Medications omeprazole (PRILOSEC) 20 mg TbEC Take 20 mg by mouth daily before breakfast. Active triamcinolone acetonide 0.1 % creamIndications :Other eczema Apply topically 2 (two) times a day for 14 days. 30 g 1 4 Active buPROPion (WELLBUTRIN SR) 150 MG SR 12 hr tabletIndication s:Current mild episode of major depressive disorder without prior episode,Depressi on, unspecified depression type Take 1 tablet (150 mg total) by mouth 2 (two) times a day. 180 tablet 3 5 04/01/19 26 Active atorvastatin (LIPITOR) 80 MG tabletIndication s:Right thalamic stroke TAKE ONE TABLET BY MOUTH AT BEDTIME 90 tablet 3 5 Active sertraline (ZOLOFT) 50 MG tabletIndication s:Current mild episode of major depressive disorder without prior episode Take 1 tablet (50 mg total) by mouth daily. 90 tablet 1 5 03/05/20 25 Active Active Problems Patient Care Coordination No te Formatting of this note migh t be different from the original. Height 176.8cm no shoes taken by OC 05/01/2022 Patient is high risk for these reasons: Multiple chronic conditions, Falls Living Situation: Lives with spouse, two story home Functional Status (ADL's/iADLs): Independent Family/Social Supports: spouse, children, golf friends Goals of Care (HCP/Molst): Not on file, completed and recorded with elder atty Community Supports (e.g. VNA, DME Vendors, Elder Services): N/A Transportation: family support Medication Management System/Specialized Pharmacy Needs: local pharmacy [facility] pick[facility], managed out of bottle Financial Concerns: N/A Other Supports and Care Needs: Med alert device Pat - contact [phone] Problem Noted Date Diagnosed Date Multiple myeloma 09/06/2024 Assessment & Plan (09/06/2024 2:34 PM EDT): Eren has a history of multiple myeloma. His blood levels have decreased. I referred him back to hematology for consult. Repeat labs in 1 month. I will see him back in 4 months for his Medicare wellness. He and his both understand and agree with this plan of action. Anemia 09/06/2024 Assessment & Plan (09/06/2024 2:35 PM EDT): Eren's anemia has decreased. He does bruise his arms quite frequently and this could be the culprit but I ordered a fit test to further investigate this. I also placed a referral to hematology for consult. Has a history of multiple Aloma. Follow-up in 4 months for his Medicare wellness. He will call if there are any other issues or concerns. He understands and agrees. Balance disorder 09/06/2024 Assessment & Plan (09/06/2024 2:36 PM EDT): Eren has issues with balance/proprioception. He recently underwent physical therapy and does not want to do this again. I informed him and his to call if they would like a referral placed again-guidance given regarding safety. Decreased appetite 07/08/2024 Assessment & Plan (07/08/2024 2:19 PM EDT): Eren has been losing weight recently-he notes that he has a decreased appetite. He denies any abdominal pain, nausea vomiting or diarrhea. I gave guidance to try to eat more frequent meals throughout the day to see if this will help-this will also improve his fatigue. I ordered labs today to further investigate. Follow-up in 3 months. He will call if there are any other issues or concerns. He understands and agrees. Closed displaced fracture of acromial end of right clavicle with delayed healing 04/01/2024 Assessment & Plan (04/01/2024 1:31 PM EST): I reviewed Eren's last x-ray of his right clavicle showing a nonunion fracture. He has follow-up with orthopedics and will see them later this month. He notes that his pain levels have decreased. Follow-up as needed. He understands and agrees. Atherosclerosis of aorta 01/08/2024 Assessment & Plan (01/08/2024 2:30 PM EDT): Overall stable- He is taking his statin as directed. Rib pain on right side 01/08/2024 Assessment & Plan (01/08/2024 2:31 PM EDT): Eren has right sided rib pain status post recent fall. I ordered x-rays today and I will update him with the result. Influenza vaccination given 01/08/2024 Assessment & Plan (01/08/2024 2:31 PM EDT): Eren is due for a high-dose flu shot-this was given today in the office. He was appreciative. Cigarette smoker 01/08/2024 Assessment & Plan (01/08/2024 2:30 PM EDT): Eren is due for CT scan of the lungs-I ordered this test today as he was in agreement. I will update him with the result. Current mild episode of beni r depressive disorder without prior episode 07/02/2023 Assessment & Plan (07/08/2024 2:18 PM EDT): Eren notes that his mood has been stable and good but objectively I see signs of depression. He is taking his SSRI and Wellbutrin as directed. This is likely helping him overall but I referred him back to psychiatry for consult regarding medication management. Follow-up in 3 months. He will call if there are any other issues or concerns. He understands and agrees. Assessment & Plan (06/09/2024 2:20 PM EDT): Slight improvement in mood with Zoloft 25 mg. I will increase this to 50 mg on top of his Wellbutrin as I do believe this will help his mood. This is going to be balance though with potential side effects and his cognition however I feel like his mood needs to increase as he was extremely depressed at last visit. I am hoping that with his increased drive to live this will then turn into a positive feedback loop with physical therapy starting soon and improving his strength overall. Follow-up in a month. They understand and agree. Assessment & Plan (05/12/2024 2:15 PM EST): Eren has depression-this is worsening. He is taking Wellbutrin 150 twice daily- I added Zoloft 25 mg in the morning to be taken as directed. Side effects discussed. He denies any current SI or HI. His will call if there are any other issues or concerns. Follow-up in a month. They understand and agree. Assessment & Plan (04/01/2024 1:31 PM EST): Please see plan depression. Assessment & Plan (07/02/2023 12:27 PM EDT): Eren has depression-he is taking Wellbutrin as directed. Follow-up in 6 months for his Medicare wellness. Mild cognitive impairment 07/02/2023 Assessment & Plan (09/06/2024 2:36 PM EDT): Eren has a mild cognitive impairment-I reviewed his most recent consult from neuropsych-3 months ago stating this. I gave guidance regarding ways to help with this but he would really like to just stay at home and sleep. His will call if there are any other issues or concerns. I have maintained a long-term relationship with the patient, overseeing the care of their cognitive impairment. This has significantly influenced my decision-making and treatment plans during today's encounter. Assessment & Plan (07/08/2024 2:19 PM EDT): Eren has a mild cognitive impairment. I reviewed his most recent brain MRI from 06/2023 showing mild generalized parenchymal loss. His is requesting referral to neurology. I placed a referral to [facility] neurology today. I informed him to call if there are any other issues or concerns. He understands and agrees. I have maintained a long-term relationship with the patient, overseeing the care of their cognitive impairment. This has significantly influenced my decision-making and treatment plans during today's encounter. Assessment & Plan (06/09/2024 2:19 PM EDT): There is cognitive impairment noted. He lives at home with his . I placed a referral to geriatrics at last visit and he will be seeing them in the fall. They are on the cancellation list. Follow-up in a month. They will call if there are any other issues or concerns. They understand and agree. Assessment & Plan (05/12/2024 2:16 PM EST): Eren has a cognitive impairment-I put a referral to geriatrics at [facility] for consult. He was appreciative. Follow-up as needed. I have maintained a long-term relationship with the patient, overseeing the care of their impairment. This has significantly influenced my decision-making and treatment plans during today's encounter. Assessment & Plan (01/08/2024 2:32 PM EDT): I reviewed Eren's recent neuropsych test-mild cognitive impairment. He is cared for at home by his . Steady decline. Follow-up in 6 months. I have maintained a long-term relationship with the patient, overseeing the care of their cognitive impairment. This has significantly influenced my decision-making and treatment plans during today's encounter. Assessment & Plan (07/02/2023 12:26 PM EDT): Eren was diagnosed with mild cognitive impairment based on neuropsych testing done recently. I reviewed the notes-I ordered an MRI of the brain for further investigation and I also filled out his RMV form with guidance that he should undergo a road comp test regarding the question if he should be driving or not. Follow- up as directed. He understands and agrees. Chest wall pain 03/05/2023 Assessment & Plan (03/05/2023 8:16 AM EST): Eren presents for left-sided chest wall pain-I suspect a rib fracture status post multiple falls. I ordered a x-ray to verify/rule out pneumonia. Follow-up in a month-I gave guidance regarding symptomatic management. He will call if there are any other issues or concerns. He understands and agrees. Weakness 03/05/2023 Assessment & Plan (06/09/2024 2:20 PM EDT): Ongoing weakness of the lower legs. Referral placed to PT last visit. He will start PT next month. I gave him guidance to start on exercises today and I tried to help motivate him with this. Follow-up in a month. Assessment & Plan (01/08/2024 2:31 PM EDT): Eren has ongoing weakness of the lower legs. I put referral to PT today. He was appreciative. Follow-up as needed. Assessment & Plan (03/05/2023 8:17 AM EST): Eren presents for ongoing weakness. I ordered a CT scan of the head, labs-urine and blood to rule out abnormalities or infection. I put a referral to geriatrics for a consult and I put a referral into [facility] for additional services. Follow-up in a month. He will call if his symptoms get worse or if there are any other issues or concerns. He understands and agrees. Confused 03/05/2023 Assessment & Plan (07/02/2023 12:14 PM EDT): Eren's notes that he still gets confused with appointments and dates. Assessment & Plan (03/05/2023 8:15 AM EST): Eren presents with his that she has been more confused more recently with multiple falls. I have a concern regarding his driving-advised him to hold off driving until we figure out was going on. His will be driving him. I ordered a CT scan of his head along with additional lab work-urine and blood to rule out abnormalities. I put a referral into geriatrics for consult. And I put a referral into the [facility] for consult. Follow-up in a month. He will call if his symptoms get worse or if there are any other issues or concerns. He understands and agrees. Multiple falls 03/05/2023 Assessment & Plan (06/09/2024 2:21 PM EDT): Recent falls-he has lower leg extremities are weak-I gave guidance regarding improvement in exercises. He will start PT next month. Follow-up next month. He understands and agrees. I have maintained a long-term relationship with the patient, overseeing the care of their falls. This has significantly influenced my decision-making and treatment plans during today's encounter. Assessment & Plan (01/08/2024 2:31 PM EDT): Eren has had more recent falls. I ordered a referral to PT to help strengthen his lower extremities. He was appreciative. Assessment & Plan (03/05/2023 8:17 AM EST): Eren has had more recent falls this past month. He is undergoing a further workup and I also put referrals into geriatrics as well as the [facility]. Follow-up in a month. He and his both understand and agree to this plan. Medicare annual wellness visit, subsequent 01/02 Assessment & Plan (01/08/2024 2:31 PM EDT): Eren Quintero is a 78 y.o. year old male presenting for his annual medicare wellness exam. I reviewed the adult health questionnaire -electronically filled out- today. he will go for his above lab work and I will update him with the results. He does not follow a specific diet or exercise regimen. he will follow up in a year for their annual medicare wellness exam. he understand and agrees. Assessment & Plan (01/02/2023 3:13 PM EDT): Eren Quintero is a 77 y.o. year old male presenting for his annual medicare wellness exam. I reviewed the adult health questionnaire -electronically filled out- today. he will go for his above lab work and I will update him with the results. he has a healthy diet and exercise regimen. he will follow up in a year for their annual medicare wellness exam. he understand and agrees. Bruise of both arms 11/12/2022 Assessment & Plan (11/12/2022 8:56 AM EDT): Eren has been experiencing bruising to his arms and legs. I noted the bruises on his arms today in the office. I informed him that as he gets older the skin thins and he should be cautious about this. He is currently not taking any blood thinners as he notes that he was taking aspirin and this made it worse. Guidance given. He will call if there are any other issues or concerns. He understands and agrees. Vertigo 09/23/2022 Assessment & Plan (09/23/2022 5:04 PM EDT): I diagnosed Eren with BPPV today in the office. I wrote a prescription for meclizine-to be taken as directed. Side effects discussed. Also gave him a printout of this diagnosis. I put a referral into physical therapy to help replace the crystals. I advised him to stay well-hydrated and to minimize quick movements of the head. He will call if there are any other issues or concerns. He understands and agrees. Abnormal CT scan 06/05/2022 Assessment & Plan (06/05/2022 4:19 PM EST): Eren had a recent abnormal PET scan and he declined a follow-up CT scan. I ordered another PET scan for 3 months regarding follow-up and he was in agreement with this. I will update him with results. He understands and agrees. MGUS (monoclonal gammopathy of unknown significa nce) 04/26/2022 Overview (05/22/2022): PN workup by Neurology: 03/17/2022: Hb 15.4 with normal renal function and calcium IgG/A/C=1073 [place] FLC's=48.4 Ratio=3.69 EMG mostly =normal except for electrical evidence for the presence of a mild, chronic, left-sided lumbosacral radiculopathy involving L2-L4 and S1 nerve roots. IgG kappa=1.52 g/d; Hx R thalamic stroke in 06/2020 and DVT in the past; CVA developed while on anticoagulation for the DVT Since no CRAB signs and IgG < 3 m. % plasma cells in BM will confirm dx of MGUS 05/15/2022 PET: Two right rib sclerotic lesions associated with focal FDG activity (SUV max of 2.8) as above. Given sclerotic changes, they could represent sequela from local trauma, although multiple myeloma is not completely excluded. 05/09/2022 Bone Marrow: 10% plasma cells 05/21/2022: IgG 2373 B2MG=2.72 Assessment & Plan (04/01/2024 1:31 PM EST): I ordered repeat CBC labs today. He is followed by hematology. Assessment & Plan (07/03/2022 1:35 PM EDT): He is followed by Dr. Dunham. Assessment & Plan (06/05/2022 4:17 PM EST): Eren has MGUS and I reviewed his most recent lab work. He is followed by specialist. I reviewed his most recent PET scan and I will repeat this in 3 months. He does not want to do any additional CT imaging right now. Weakness of both lower extremities 10/30/2021 Assessment & Plan (10/30/2021 11:04 AM EDT): Eren has weakness of the lower extremities and I put a referral to physical therapy for consult. He will call if things do not improve or he gets worse. He understands and agrees. Pneumococcal vaccination indicated 10/30/2021 Assessment & Plan (10/30/2021 11:04 AM EDT): Eren is due for pneumonia vaccine-this was done today in the office and he was in agreement. No complications. Age-related cataract of both eyes 07/30/2021 Assessment & Plan (07/30/2021 8:45 AM EDT): Eren presents for a pre-op visit. He will be going for left eye cataract surgery with Dr. Ethan Crandall on 08/02/2021. He will be having the right eye done two weeks after this. I reviewed his previous medical history. I reviewed his most recent lab work. He was cleared at a moderate cardiovascular risk based on his chart. I will fax this note out to Dr. Crandall's office. Please call if there are any other issues or concerns. Preop examination 07/30/2021 Assessment & Plan (07/30/2021 8:44 AM EDT): Eren presents for a pre-op visit. He will be going for left eye cataract surgery with Dr. Ethan Crandall on 08/02/2021. He will be having the right eye done two weeks after this. He was cleared at a moderate cardiovascular risk today in the office. Screening for condition 07/30/2021 Assessment & Plan (10/30/2021 11:04 AM EDT): Eren is due for colonoscopy. I ordered this today and he will get a phone call for this. He understands and agrees. Assessment & Plan (07/30/2021 8:44 AM EDT): Eren is due for colonoscopy-I ordered this today-she will get this scheduled. Need for Td vaccine 07/30/2021 Assessment & Plan (07/30/2021 8:44 AM EDT): Changes due for tetanus vaccine today-he was in agreement with this. This was done today in the office without any complications. He was appreciative. Rib pain on left side 04/04/2021 Assessment & Plan (04/04/2021 1:56 PM EST): A virtual visit was used during the COVID-[address] of an in-person visit. This real-time interactive virtual clinical encounter was conducted using telephone-only technology from clinic or home office. The patient participated in the visit from home/temporary residence or other location as specified below. Consent for virtual care, including informing the patient that insurance will be billed, and that in-person care is available in case of emergencies or as needed otherwise, was discussed at the time of scheduling. Pt participated in visit from home. David had a recent fall while at the mall and he hurt his ribs in the left side. I will have him go for the above x-ray that I ordered today and I will update him with the results. Symptomatic management given. He will call if there is any other issues or concerns. He understands and agrees. Balance problem 02/20/2021 Assessment & Plan (04/04/2021 1:56 PM EST): Changes having an issue with balance. I informed him that I do not want him driving. I also have him go for the above lab work. He is awaiting PT next month. I put a referral into integrative care management for consult. He will call if there is any other issues or concerns. He understands and agrees. Assessment & Plan (02/20/2021 2:02 PM EST): Eren has been having more issues with balance recently. I put a referral into physical therapy to help with this. He will call if things do not improve or if things get worse. Follow-up for his Medicare wellness in 3 months. He understands and agrees. Umbilical hernia without obstruction and without gangrene 02/20/2021 Assessment & Plan (02/20/2021 2:01 PM EST): Eren presents with a tender umbilical hernia with referred pain just slightly to the right of the umbilicus. I am able to reduce it. I referred him to general surgery for consult. He was appreciative. He will call if there is any other issues or concerns. He understands and agrees. Closed wedge compression fra cture of L2 vertebra with routine healing 01/23/2021 Assessment & Plan (01/23/2021 10:12 AM EDT): Eren has a compression of the L2 spine noted on CT-guidance given regarding symptomatic management with Tylenol as needed, warm compresses as needed, and he will call if things get worse. This should heal with time. He understands and agrees with this plan. Hematoma 01/01/2021 Assessment & Plan (01/23/2021 10:12 AM EDT): Eren has a hematoma of the left flank as noted on CT recently. He saw the surgeon and was given symptomatic management. I informed him that this should resolve on its own but to call if things get worse. He understands and agrees with this plan. Assessment & Plan (01/01/2021 10:46 AM EDT): Eren has a left flank hematoma noted on most recent CT scan done. I updated him with the results today and I informed him that time should take care of this but I do want to put a referral to general surgery for consult regarding a possible drain. He will call if there is any other issues or concerns. He understands and agrees. Acute bilateral low back pain without sciatica 0 12/26/2020 Assessment & Plan (01/01/2021 10:45 AM EDT): Eren has low back pain. He does have a fracture in the lumbar spine and reviewed this in the last CT scan-this is likely secondary to his fall weeks ago. Guidance given regarding pain management I refilled his pain medication today-to be taken as directed. I also advised rest. He will call if there is any other issues or concerns. He understands and agrees. Assessment & Plan (12/26/2020 10:51 AM EDT): Eren has pain of his lower back secondary to an axonal fall recently. Secondary to his increased fall risk I stop the Eliquis. He will go for an x-ray and I will update him with results. I advised for symptomatic management. I refilled his pain medication to be taken as directed. He will call if there is any other issues or concerns. He understands and agrees. Accidental fall 12/26/2020 Assessment & Plan (01/01/2021 10:45 AM EDT): Eren had an axonal fall a few weeks ago where he fractured his lumbar spine. Guidance given to rest. He will call if there is any other issues or concerns. Assessment & Plan (12/26/2020 10:52 AM EDT): Eren had an axonal fall recently. I stopped his Eliquis secondary to his increased fall risk. Symptomatic management given. Follow-up as needed. He understands and agrees. Need for prophylactic vaccin ation and inoculation against influenza 12/26/2020 Assessment & Plan (12/26/2020 10:52 AM EDT): Changes due for flu vaccine today-this was done in the office at his consent-no complications. Acute pain of left knee 12/18/2020 Assessment & Plan (01/01/2021 10:45 AM EDT): Eren has pain in his left knee. I suspect an infection thus I treated him for this today-he is back on his antibiotics. He will call if there is any other issues or concerns. Follow-up as needed. Understands and agrees. Assessment & Plan (12/26/2020 10:51 AM EDT): Eren continues to have left knee pain however it is improving status post antibiotics. Symptomatic management given. He will call if there is any other issues or concerns. He understands and agrees. Assessment & Plan (12/18/2020 12:30 PM EDT): Eren has acute left knee pain. There is inflammation and pain to palpation along the joint line. I am concerned about a septic knee as he has had surgery to the left knee in the past but he denies left knee replacement in the past. I believe there might be some hardware in the left knee though. I will have him go for an x-ray and I will update him with the results, I also put an order in for CBC and I will update him with the results. I put a referral into Ortho for consult-urgent. I advised for cold compresses and elevation to the knee and to call if things get worse or for changes. He understands and agrees. Right thalamic stroke 07/01/2020 Assessment & Plan (07/02/2023 12:15 PM EDT): Eren is taking his statin as directed. Assessment & Plan (04/02/2023 8:55 AM EST): Eren is taking the statin- 80 mg a day. I reviewed his last CT of head- normal. Assessment & Plan (11/12/2022 8:56 AM EDT): Eren had a stroke in the past-he notes that he is no longer taking any of his medications as he does not want to take medications. I did have a conversation with him I advised him to at the very least to restart his atorvastatin and propranolol. I sent the prescription back into his pharmacy today-to be taken as directed. He will call if there are any other issues or concerns or side effects of this. He understands and agrees. Assessment & Plan (07/03/2022 1:53 PM EDT): Eren had a previous right thalamic stroke and he is taking his medications as directed. No worsening signs or symptoms. His blood pressure is well controlled. He is getting back and exercise with the warmer weather. Assessment & Plan (06/05/2022 4:17 PM EST): Status post stroke. I advised him to continue with the 81 mg of aspirin and the high-dose statin as this is helping him with lowering the odds of another stroke. Assessment & Plan (07/30/2021 8:43 AM EDT): Eren is status post right-sided stroke-recent MRI shows no abnormalities but some white matter changes. He still is weak and has tremors thus I put a referral to [facility] neurology for consult. He was appreciative. He will call if there are any other issues or concerns. Assessment & Plan (10/05/2020 11:33 AM EDT): Status post stroke. He is taking his Eliquis as directed. He was seen by cardiology who may implanted device to see if he has A. fib or not which would decide if he should be on the Eliquis lifelong or not. He will follow up with him as directed. He understands and agrees. Assessment & Plan (09/11/2020 12:04 PM EDT): As mentioned he is going to get an ILR to have a better look at the potential for atrial fibrillation Assessment & Plan (07/06/2020 12:41 PM EDT): Eren was diagnosed with a right thalamus stroke on recent hospitalization at [facility] from 06/30/2020 to 07/03/2020. I refilled his Eliquis-to be taken as directed as well as his high-dose statin. He is taking these as directed and will continue with this. I advised him to quit smoking and to continue with his exercise regimen. He notes that he is a DNR/DNI and would like this noted in his chart. He is getting physical therapy at present and gaining strength. I put a referral into neurology today and he will call for an appointment. I will see him back in 3 months. He will call if there is any other issues or concerns. He understands and agrees. Assessment & Plan (07/02/2020 2:49 PM EDT): MRI shows recent right thalamic stroke. While on Eliquis thus doesn't qualify for TPA. Echo does not show PFO or ASD. -Symptoms improving -equipment monitor phototypesetting for atrial fibrillation -Discussed with teleneurology, will resume Eliquis now and stop aspirin -Continue statin - hemoglobin A1c within normal rehab - PT.OT - Disposition home PT with improving symptoms -Smoking cessation discussed in detail -30-day event monitor at discharge Vision abnormalities 02/17/2020 Assessment & Plan (02/17/2020 10:22 AM EST): Eren continues to have right eye vision abnormalities intermittently. He denies any eye pain. He was seen by the eye doctor recently with guidance to follow-up with his PCP regarding further test. I put an order in for a carotid ultrasound as well as an echo for further evaluation and I will update him with the results. I did advise him to call if things get worse or if they change. He understands and agrees with this plan. Advice given about 2019 novel coronavirus infect ion 12/21/2019 Assessment & Plan (12/21/2019 10:34 AM EDT): Eren would like to get tested to see if he has ever had COVID in the past. I ordered this test. I will update him with the results. Elevated glucose 09/28/2019 Assessment & Plan (09/28/2019 11:47 AM EDT): Eren had an elevated glucose in the past on CMP thus I ordered an A1c. He does not want to get this done today but he was advised to get this done every once. I will update him with the results. He understands and agrees. Shortness of breath 08/31/2019 Assessment & Plan (04/05/2020 11:28 AM EST): I reviewed his most recent echocardiogram with an EF of 65% and reassuring. Assessment & Plan (08/31/2019 10:40 AM EDT): A virtual visit was used during the COVID-[address] of an in-person visit. This real-time interactive virtual clinical encounter was conducted using telephone-only technology from clinic or home office. The patient participated in the visit from home/temporary residence or other location as specified below. Consent for virtual care, including informing the patient that insurance will be billed, and that in-person care is available in case of emergencies or as needed otherwise, was discussed at the time of scheduling. Pt participated in visit from home. Eren has been having dyspnea on exertion for the past couple of weeks. He is a 73-year-old overweight male and I am concerned about his heart thus I ordered a stress test to be done this week along with lab work. I informed him to call if this gets worse over the next couple of days. He understands and agrees. Depression 08/31/2019 Assessment & Plan (04/01/2024 1:31 PM EST): Eren has depression-he is taking his Wellbutrin. He notes that he will need a refill of this. I sent this in today. Follow-up in 3 months. Assessment & Plan (04/02/2023 9:04 AM EST): Eren is stable while taking his Wellbutrin. He will call if there are any other issues or [id number] in 3 months. He understands and agrees. Assessment & Plan (08/31/2019 10:39 AM EDT): Eren is describing some symptoms of depression over the past month. I do want to check out some lab work and rule out some organic causes. He is also can be going for stress test. If all these tests come back normal I will likely put him on a mood stabilizer. He will call if this gets worse. Follow-up in 1 week. He understands and agrees. Visit for suture removal 01/05/2019 Assessment & Plan (09/17/2021 10:05 AM EDT): I removed #3 sutures from his right hand today- cellulitis picture-this was bandaged today in the office without complications however around the site there appears to be an infection and I treated this with Keflex today. He will call if there are any other issues or concerns with this. He was appreciative. Assessment & Plan (01/05/2019 8:54 AM EDT): Eren presents for a suture removal. I assessed the site. No infection, no drainage. The area is healing well. I removed all # 3 sutures today with tweezers and an 11 blade. No bleeding noted. Steri strips were placed over top- guidance given. He will call if there is any other issues. He understands and agrees. Skin lesion of neck 12/24/2018 Assessment & Plan (12/24/2018 9:47 AM EDT): Eren Quintero is a 73 y.o. year old male presenting for a skin lesion to his neck. Consent was signed and time out was performed. The patient was prepped and draped in the normal sterile fashion. Using 2% lidocaine with epinephrine 3 cc's were used with good anesthetics. Using a 15 blade scalpel the 1.5 cm x 0.8 cm skin lesion was removed without any complications. The total excised diameter: 0.5 cm + 1 cm = 1.5 cm. The defect was sutured using 4-0 monofilament with # 3 sutures placed. Minimal blood loss. No complications. Wound care was discussed. A bandaid was placed overtop. he will follow up in 10 days for suture removal. he understands and agrees. Mass of skin 12/17/2018 Assessment & Plan (12/17/2018 3:58 PM EDT): Eren has a mass of his neck- I will have him come back in 1-2 weeks for a 30 min surgery visit. I walked him through the procedure. He has no further questions. He understands and agrees. Laboratory examination order ed as part of a routine general medical examination 11/03/2018 Assessment & Plan (11/03/2018 10:09 AM EDT): For the above lab work. Other fatigue 11/03/2018 Assessment & Plan (07/08/2024 2:18 PM EDT): Eren has ongoing fatigue-I ordered labs today to further investigate this. I also gave him guidance to try to eat more meals throughout the day as this will give him extra energy. I informed him to call if there are any other issues or concerns. Follow-up in 3 months. He understands and agrees. Assessment & Plan (04/01/2024 1:32 PM EST): Eren is having more fatigue recently. I ordered labs today-blood and urine and I will update him with the results. I gave guidance to try to eat better and I informed him that he can be drinking boost or Ensure to help with nutrition. Follow-up in 3 months. He will call if there are any other issues or concerns. He understands and agrees. Assessment & Plan (04/02/2023 9:05 AM EST): Eren has chronic fatigue-doing okay. I gave guidance regarding hydration-he had ketones noted in his last 2 urinalysis tests. I also put a referral to neurology but mainly for his bilateral hand tremor which is getting worse now. Follow-up in 3 months. He will call if there are any other issues or concerns. He understands and agrees. Assessment & Plan (07/03/2022 1:54 PM EDT): Stable fatigue-I gave guidance regarding healthy exercise and he will start this with the warmer weather. He is getting back into golf-he likes golf. Assessment & Plan (06/05/2022 4:18 PM EST): Eren has been having more issues with fatigue and he is interested in the medication to help with this. I reviewed modafinil with him in the office today and gave him guidance regarding side effects. He was in agreement thus I sent this medication to his pharmacy today-to be taken as directed-In the morning. Follow-up in a month for blood pressure check. He understands and agrees. Assessment & Plan (04/04/2021 1:56 PM EST): Eren has been having more fatigue recently. I will have him go for the above lab work and I will update him with results. He understands and agrees. Assessment & Plan (11/03/2018 10:08 AM EDT): Eren has been having more fatigue. He smokes 1 PPD for years. He has decreased lung sounds on exam. Tremor of both hands 08/19/2017 Assessment & Plan (07/02/2023 12:27 PM EDT): Ongoing intermittent tremor in hands-he is taking propranolol as directed. I reviewed the note from neuropsych testing was done recently. Follow-up in 6 months for his Medicare wellness. Assessment & Plan (04/02/2023 9:06 AM EST): Eren now has bilateral hand tremors. These are getting worse. This initially started in his 1 hand but has now spread. He is taking propranolol 20 mg twice a day but despite this he still has hand tremors. I put a referral into neurology for consult and he was appreciative. I also reviewed his most recent CT scan of the head showing no abnormalities. Follow-up as needed. He understands and agrees. Assessment & Plan (07/30/2021 8:45 AM EDT): Eren has tremor's he was seen by Dr. Price but he would like to see someone- I put a referral in to [facility] neurology. I reviewed his most recent MRI along with lab work. No concerning signs. Assessment & Plan (08/19/2017 9:48 AM EDT): Eren has a tremor of his right hand. He notes that this has been going on for the past year and getting more noticeable. He was referred to neurology today. He will go for the above lab work and I will update him with the results. He will call if there is any other issues. Dizziness 04/23/2017 Assessment & Plan (11/12/2022 8:57 AM EDT): Eren has intermittent dizziness. I reviewed his most recent carotid ultrasound which was done in 2020. I printed these out and I want him to deliver these to his eye doctor as his eye doctor was requesting carotid ultrasounds. His ultrasound from 2020 was reassuring. Assessment & Plan (09/17/2021 9:57 AM EDT): Referral to [facility] made today, dizzy. Recent falls. Assessment & Plan (04/04/2021 1:53 PM EST): Eren has been having intermittent dizziness. He has been having falls as well. He is not set up for physical therapy until next month. I put a referral into integrative care management for consult. I want him to go for the above lab work and I will update him with the results. I informed him to call if things get worse or if they change. He understands and agrees. Assessment & Plan (12/21/2019 10:34 AM EDT): Eren presents for 3-4 episodes of dizziness over the past couple of months. He notes that this comes out of the blue and resolves within 5 minutes. He also notes that he only eats 1 meal a day and drinks an Ensure in the morning. I did inform him to improve his nutrition. I want to get the above lab work and I will update him with the results. I do believe that this sounds like it is glucose related. He is staying well-hydrated and I congratulated him on this. Lastly, I referred him to neurology today for a consult. He will call if this happens again if this gets worse. He understands and agrees. Assessment & Plan (11/03/2018 10:09 AM EDT): Eren has been having dizziness and he was advised to drink more water. He will go for the above lab work and I will update him with the results. He had his ears flushed out as well. Gastroesophageal reflux disease without esophagi tis 04/23/2017 Kidney stone 04/23/2017 Low back pain 04/23/2017 Assessment & Plan (02/20/2021 2:02 PM EST): Eren has left lower back pain. I wrote a referral to physical therapy today. I also wrote a prescription for Voltaren gel to be used as directed. He will call if this does not improve or if this gets worse. He understands and agrees. Plantar wart of left foot 04/23/2017 Sciatica 04/23/2017 Eczema 04/23/2017 Assessment & Plan (01/08/2024 2:31 PM EDT): I refilled his triamcinolone today-he was appreciative. Assessment & Plan (03/05/2023 8:16 AM EST): I refilled his triamcinolone cream at his request -he was appreciative. Assessment & Plan (04/23/2017 1:48 PM EST): Eren has eczema and he was advised to use the steroid cream as directed. He will use the Eucerin cream as needed. He will call if there is any other issues. Cyst of neck 04/23/2017 Assessment & Plan (04/23/2017 1:49 PM EST): Eren has a benign cyst on the back of his neck. He was informed that there is no treatment needed. But I will remove this if he wishes. He will discuss with his . He understands and agrees. Tobacco use 04/23/2017 Assessment & Plan (07/03/2022 1:53 PM EDT): Eren continues to smoke cigarettes. He declines a low-dose CT scan offered today. Follow-up as needed. He understands and agrees. Assessment & Plan (06/05/2022 4:18 PM EST): Eren continues to smoke cigarettes. He notes that he has no intention of quitting. Assessment & Plan (10/05/2020 11:27 AM EDT): He continues to smoke cigarettes. Assessment & Plan (09/11/2020 12:04 PM EDT): Counseled him against this Assessment & Plan (11/03/2018 10:08 AM EDT): Eren conintues to smoke and he is in the pre-contemplative state. Assessment & Plan (04/28/2017 4:59 PM EST): Eren continues to smoke tobacco and he is in the pre-contimplative state. We spent 3 minutes talking about this today, such as a nicotine patch, lozenges, and the gum. He would not like to try any at this time. He will consider a quit date. Resolved Problems Problem Noted Date Diagnosed Date Resolved Date Cellulitis of face 10/30/2021 Assessment & Plan (10/30/2021 11:04 AM EDT): Eren has a cellulitis of his years and I wrote for you for some cream-to be used as directed. He will call if there are any other issues or concerns with this. He understands and agrees. Cellulitis of hand, right 09/17/2021 Assessment & Plan (09/17/2021 10:04 AM EDT): Eren was diagnosed with cellulitis of the right hand status post an injury and I gave him Keflex today-to be taken as directed. The hand was bandaged today and I gave him guidance on how to do this at home. He will call if there are any other issues or concerns. He understands and agrees. Acute deep vein thrombosis ( DVT) of right lower extremity 09/28/2019 09/17/2021 Assessment & Plan (12/26/2020 10:46 AM EDT): I reviewed his most recent U/S no clot noted. I stopped the eliquis today- risks outweigh the benefits. Assessment & Plan (10/05/2020 11:32 AM EDT): Eren had a DVT of his lower leg and he is on Eliquis-he is taking this as directed. No side effects other than bruising. Assessment & Plan (09/11/2020 12:03 PM EDT): This patient had a DVT about 18 months ago which was provoked and technically he could come off oral anticoagulation but I want to leave him on until we fully elucidate the diagnosis of potential atrial fibrillation with an ILR Assessment & Plan (07/06/2020 12:39 PM EDT): I reviewed Eren's most recent ultrasound of his right leg while in the hospital-07/01/2019 and this shows no DVT. He is currently on Eliquis and I refilled this today. Assessment & Plan (07/02/2020 2:50 PM EDT): Dx in Summer 2019 -Continues on Eliquis, currently on hold for 24-48 hrs -With tobacco history patient at risk for lung cancer certainly and would need outpatient work-up, concerned with his history of DVT and now stroke for potential for hypercoagulable state due to malignancy, patient tells me is up-to-date with screening -Repeat lower extremity Doppler study pending Assessment & Plan (04/05/2020 11:27 AM EST): Eren is taking his Eliquis regarding a DVT of his right lower extremity. He is very adamant about wishing to stop taking this medication if he does not need it. I ordered another ultrasound-his last was done about 3 months ago (we reviewed this in the office today) to see if the clot is still present. I advised him to continue with the medication at present and I refilled this. I informed him to try to increase some activity as this will be helpful. He will call if there is any other issues or concerns. He understands and agrees. Assessment & Plan (02/17/2020 10:22 AM EST): He is taking his blood thinner as directed. Follow-up in 2 months. Assessment & Plan (01/03/2020 3:28 PM EDT): I refilled his Eliquis today. Follow-up in 3 months. Assessment & Plan (09/28/2019 11:47 AM EDT): Eren was recently diagnosed with a DVT of his right lower extremity. He is currently on Eliquis-taking this as directed. I refilled this for 3 months. I want to get an ultrasound in 3 months and I ordered this today. Guidance given regarding DVT and things to be aware. I also gave him guidance regarding the blood thinner he is taking and avoid certain medications. Follow-up in 3 months. He understands and agrees. Skin abnormality 09/28/2019 04/05/2020 Assessment & Plan (01/03/2020 3:33 PM EDT): Eern Quintero is a 74 y.o. year old male presenting for a growth on his left ear.. Consent was signed and time out was performed. The patient was prepped and draped in the normal sterile fashion. Using 2% lidocaine with epinephrine 0.5 cc's were used with good anesthetics. Using a dermablade the skin lesion was removed without any complications. Measurements: Lesion at its widest point: 5 mm Narrowest margin to the incision line, was 2 mm (times 2): 4 mm. The total excised diameter: 5 mm + 4 mm = 0.9 cm. The defect was subjected to Drysol x5 attempts. Minimal blood loss. No complications. Path sent today. Wound care was discussed. Follow-up as needed. he understands and agrees. Assessment & Plan (09/28/2019 11:42 AM EDT): Eren has a growth on his left ear. I adivsed him to come back in 2-3 weeks for a removal of this and I will biopsy this. He understands and agrees. Bilateral impacted cerumen 11/03/2018 0 12/17/2018 Assessment & Plan (11/03/2018 10:10 AM EDT): Eren Quintero presents for a cerumen impaction of his ears B/L. he was agreeable to a flush and this was flushed out without any complications. he will call if there is any other issues. he understands and agrees. Encounters Date Type Department Care Team Description 11/23/2024 Orders Only [address] [address] Yumiko Peacock PA 11/22/2024 Orders Only [address] [address] ProviderCandis MD 11/21/2024 Orders Only [address] [address] ProviderCandis MD 10/25/2024 Telephone [facility] [address] [place] [address] Noah Hernandez RN Elizabet intake/Go 10/13/2024 Patient Outreach [facility] [address] [place] [id number] Chaparrita Harper, RENALDO Care Coordination (iCMP) 10/06/[address] [address] Miquel Lo, FYI 10/03/2024 1:35 PM EDT - 10/03/2024 5:22 PM EDT Emergency [facility] [address] [place] [address] Benigno Cao MD Discharge Disposition: Short Term Hospital 10/03/2024 Procedure Pass [facility], Ct Scan - Main Hospital [address] [place] [address] 10/03/2024 Patient Outreach [facility] [address] [facility] [place] [address] Chaparrita Harper, RN Care Coordination (iCMP) 10/03/2024 Nurse Triage [address] [address] Miquel Lo, Triage (Red + fall + 7/5) 09/23/2024 1:30 PM EDT - 09/23/2024 11:59 PM EDT Hospital Encounter [facility] [address] [place] [id number] Jerrod Sanchez, DO Discharge Disposition: Home or Self Care 09/23/2024 1:00 PM EDT Office Visit [facility] at [address] [address] Jerrod Sanchez, Multiple myeloma not having achieved remission (Primary Dx); Anemia, unspecified type 09/23/[address] [facility] at [address] [address] Jerrod Sanchez, PET Approval / Scheduling 09/16/2024 Patient Outreach [facility] [address] [place] [id number] Chaparrita Harper, RN Care Coordination (iCMP outreach) 09/12/2024 Patient Outreach [facility] [address] [place] [id number] Chaparrita Harper, RN Post Discharge Follow Up Call (PDA) 09/10/2024 11:36 AM EDT - 09/10/2024 4:36 PM EDT Emergency [facility] [address] [place] [id number] Discharge Disposition: Home or Self Care 09/10/2024 Procedure Pass [facility], Ct Scan - [facility] Hospital [address] [place] [id number] 09/09/[address] [address] Miquel Lo DO 09/09/[address] [facility] at [address] [address] Jerrod Sanchez DO [facility]COL[facility] APT 09/08/2024 9:39 AM EDT - 09/08/2024 11:59 PM EDT Hospital Encounter [facility] Specimen Processing [address] [place] [address] Miquel Lo DO Discharge Disposition: Home or Self Care 09/06/2024 2:15 PM EDT Office Visit [facility] [address] [place] [address] Miquel Lo DO Multiple myeloma, remission status unspecified (Primary Dx); Anemia, unspecified type; Balance disorder; Mild cognitive impairment; Current mild episode of major depressive disorder without prior episode from Last 3 Months Immunizations Immunization Administration Dates Next Due COVID-19 (Pre-01/19) Pfizer Vaccine, mRNA, PF 07/07/2020,06/16/2020 [id number] FORMULATION 04/04/2009 INFLUENZA, SPLIT VIRUS, TRIV ALENT W/ PRESERVATIVE IM 02/07/2010 Influenza High-Dose Quadriva lent Preservative Free IM 12/26/2020,12/08/2019 Influenza High-Dose Trivalen t Preservative Free IM 01/08/2024,01/07/2018,12/03/2016,12/31,12/29/2013,12/14/2012 Influenza Quadrivalent Adjuv anted Preservative Free IM 02/06/2023 Pneumococcal conjugate PCV13 12/08/2019 Pneumococcal polysaccharide PPSV23 10/30/2021 RSV Vaccine (monovalent, adjuvanted) 08/15/2023 Td (adult),2 Lf Tetanus Toxo id, PF, Adsorbed 07/30/2021,09/21/2005 Tdap 10/24/2023 Zoster live 04/04/2009 Zoster recombinant 10/24/2023,08/15/2023 Family History Medical History Relation Comments Alzheimer's disease Brother 2 Alzheimer's disease Brother 3 No Known Problems Daughter Alzheimer's disease Father Hypertension Father Stroke Mother No Known Problems Son Relation Status Comments Brother 1 Alive Brother 2 Alive Brother 3 Alive Daughter Alive Father Mother Sister 1 Alive Sister 2 Alive Son Alive Social History Tobacco Use Types Packs/Day Years Used Date Smoking Tobacco: Every Day Cigarettes 0.5 65.7 Started: 1957 Smokeless Tobacco: Never Tobacco Cessation:Ready to Q uit: Not Asked; Counseling Given: Not Answered Alcohol Use Standard Drinks/Week Comments Not Currently [...] Not on file Not on f ile Last Filed Vital Signs Vital Sign Reading Time Taken Comments Blood Pressure 107/77 10/03/2024 4:10 PM EDT Pulse 77 10/03/2024 4:10 PM EDT Temperature 36 C (96.8 F) 10/03/2024 1:20 PM EDT Respiratory Rate 24 10/03/2024 4:10 PM EDT Oxygen Saturation 100% 10/03/2024 4:10 PM EDT Inhaled Oxygen Concentration - - Weight 60.8 kg (134 lb) 10/03/2024 1:20 PM EDT Height 175.3 cm (5' 9 ) 10/03/2024 1:20 PM EDT Body Mass Index 19.79 10/03/2024 1:20 PM EDT Plan of Treatment Upcoming Encounters Date Type Department Care Team (Late st Contact Info) Description 01/10/2025 2:30 PM EDT Office Visit [facility] [address] [place] [address] Miquel Lo, DO [address] [facility] [address] [place] [address] 05/18/2025 10:30 AM EST Office Visit [facility] [facility] [address] [place] [address] Logan Scott, [address] [place] [address] Health Maintenance Due Date Last Done Comments COLOGUARD 09/18/1992 FOBT 09/18/1992 SIGMOIDOSCOPY 09/18/1992 VIRTUAL COLONOSCOPY 09/18/1992 COLONOSCOPY 02/09/2019 02/09/2014 COLORECTAL CANCER SCREENING 09/09/2024 INFLUENZA VACCINE (#1) 2024 , 02/06/2023, 02/06/2023, Additional history exists COVID-19 VACCINE ( season) 2024 01/24/2024, 02/06/2023, 01/28/2022, Additional history exists LIPID PANEL 01/12/2025 01/13/2024, 04/0 08/2022, 07/03/2022, Additional history exists CREATININE LEVEL 04/05/2025 10/03/2024, , 08/25/2024, Additional history exists POTASSIUM LEVEL 04/05/2025 10/03/2024, 08/29, 08/25/2024, Additional history exists DEPRESSION SCREENING 06/02/2025 06/02/2024, 06/03/19 25 FIT TEST 09/08/2025 09/08/2024 LUNG CANCER SCREENING (LDCT Only) 09/10/2025 09/10/2024, 02/23/2024 SMOKING Hx and SMOKELESS TOBACCO SCREENING 10/03/2025 10/03/2024 Adult Td,Tdap Booster 10/23/2033 10/24/2023 , 07/30/2021, 09/21/2005 HEPATITIS C SCREENING Completed 11/03/2018, 019 PNEUMOCOCCAL VACCINES (50+ years) Completed 10/30/2021, 12/08/2019 RSV VACCINE Completed 08/15/2023 ZOSTER VACCINES Completed 10/24/2023, 07/28, 04/04/2009 HEPATITIS A VACCINES Aged Out No long er eligible based on patient's age to complete this topic HIB VACCINES Aged Out No longer eligi ble based on patient's age to complete this topic MENINGOCOCCAL VACCINES (ACWY) Aged Out No longer eligible based on patient's age to complete this topic MENINGOCOCCAL VACCINES (B) Aged Out N o longer eligible based on patient's age to complete this topic Goals Goal Patient Goal Type Associated Problems Recent Progress Patient-Stated? Author Adhere to prescribed treatment plan Care Plan Chronic Condition Self-Managemen t No Yarrows, Chaparrita, RN Increase participation in self-management activities Care [...] RN Note: Patient Agrees with goal priority: {yes/no:[id number]} Patient Self-Management activities for this goal: {pick list:[id number]} Task/Interventions: Increase participation in self-management activities Care Plan Chronic Condition Self-Managemen t No Chaparrita Harper RN Note: Patient Agrees with goal priority: {yes/no:[id number]} Patient Self-Management activities for this goal: {pick list:[id number]} Task/Interventions: Participation in sick day plan for condition Care Plan Chronic Condition Self-Managemen t No Chaparrita Harper RN Note: Patient Agrees with goal priority: {yes/no:[id number]} Patient Self-Management activities for this goal: {pick list:[id number]} Task/Interventions: Participation in telemedicine activities to monitor condition Care Plan Chronic Condition Self-Managemen t No Chaparrita Harper RN Note: Patient Agrees with goal priority: {yes/no:[id number]} Patient Self-Management activities for this goal: {pick list:[id number]} Task/Interventions: Understand symptoms and warning signs to report to Provider Care Plan Chronic Condition Self-Managemen t No Chaparrita Harper RN Note: Patient Agrees with goal priority: {yes/no:[id number]} Patient Self-Management activities for this goal: {pick list:[id number]} Task/Interventions: Improved control over condition Care Plan Chronic Condition Self-Managemen t No Chaparrita Harper RN Note: Patient Agrees with goal priority: {yes/no:[id number]} Patient Self-Management activities for this goal: {pick list:[id number]} Task/Interventions: No unplanned hospitalizations for condition Care Plan Chronic Condition Self-Managemen t No Chaparrita Harper RN Note: Patient Agrees with goal priority: {yes/no:[id number]} Patient Self-Management activities for this goal: {pick list:[id number]} Task/Interventions: Able to maintain current level of functioning Care Plan Chronic Condition Self-Managemen t No Chaparrita Harper RN Note: Patient Agrees with goal priority: {yes/no:[id number]} Patient Self-Management activities for this goal: {pick list:[id number]} Task/Interventions: Avoid environmental and psychosocial exposures to triggers that worsen condition Care Plan Chronic Condition Self-Managemen t No Chaparrita Harper RN Note: Patient Agrees with goal priority: {yes/no:[id number]} Patient Self-Management activities for this goal: {pick list:[id number]} Task/Interventions: Medical Devices Not on file Procedures Procedure Name Priority Date/Time Associated Diagnosis Comments OUTSIDE CT HEAD/NECK REPORT ONLY Routine 11/23/2024 9:[address] IMAGING REPORT ONLY Routine 11/22/2024 9:16 AM EDT OUTSIDE XR IMAGING REPORT ONLY Routine 11/21/2024 1:58 PM EDT OUTSIDE XR IMAGING REPORT ONLY Routine 11/21/2024 1:[address] IMAGING REPORT ONLY Routine 11/21/2024 1:[address] SPINE REPORT ONLY Routine 11/21/2024 1:08 PM EDT URINALYSIS W/REFLEX URINE CULTURE STAT 10/03/2024 4:31 PM EDT TOXICOLOGY SCREEN, URINE STAT 10/03/2024 4:[address] ANGIO HEAD WITH AND WITHOUT CONTRAST, CT ANGIO NECK WITH CONTRAST Routine 10/03/2024 3:46 PM EDT ECG 12-LEAD STAT 10/03/2024 2:59 PM EDT XR CHEST PORTABLE Routine 10/03/2024 2:4 0 PM EDT C-REACTIVE PROTEIN STAT 10/03/2024 2: 30 PM EDT ETHANOL, BLOOD STAT 10/03/2024 2:30 PM EDT MAGNESIUM STAT 10/03/2024 2:30 PM EDT LACTIC ACID (LACTATE) STAT 10/03/2024 2:30 PM EDT LFTS (HEPATIC PANEL) STAT 10/03/2024 2:30 PM EDT BASIC METABOLIC PANEL STAT 10/03/2024 2:30 PM EDT CBC AND DIFFERENTIAL STAT 10/03/2024 2:30 PM EDT BLOOD CULTURE, ROUTINE STAT 2:30 PM EDT BLOOD CULTURE, ROUTINE STAT 2:30 PM EDT MONOCLONAL PROTEIN STUDY, SERUM Routine 09/23/2024 1:44 PM EDT Multiple myeloma not having achieved remission Anemia, unspecified type COMPREHENSIVE METABOLIC PANEL Routine 09/23/2024 1:44 PM EDT Multiple myeloma not having achieved remission Anemia, unspecified type CBC AND DIFFERENTIAL Routine 09/23/2024 1:44 PM EDT Multiple myeloma not having achieved remission Anemia, unspecified type BETA-2 MICROGLOBULIN, BLOOD STAT 09/23/2024 1:44 PM EDT Multiple myeloma not having achieved remission Anemia, unspecified type FREE LIGHT CHAINS, SERUM Routine 09/23/2024 1:44 PM EDT Multiple myeloma not having achieved remission Anemia, unspecified type CT CHEST WITHOUT CONTRAST Routine 09/10/2024 2:00 PM EDT XR RIBS 3 OR MORE VIEWS WITH PA CHEST (LEFT) Routine 09/10/2024 12:17 PM EDT HC BLOOD OCCULT FECAL HGB DETER IA QUAL FECES 1-3 Routine 09/08/2024 7:56 PM EDT Anemia, unspecified type LIPID PANEL Routine 01/13/2024 11:58 AM EDT Medicare annual wellness visit, subsequent HEPATITIS C ANTIBODY, QUALITATIVE Routine 11/03/2018 10:31 AM EDT Laboratory examination ordered as part of a routine general medical examination COLONOSCOPY FOR RESULT ENTRY ONLY Routine 02/09/2014 from Last 3 Months or Most Recently Relevant to Health Maintenance Results * Outside CT Head/Neck Report Only (11/23/2024 9:26 AM EDT) us Yumiko THOMAS IMG CT HEAD/NECK Final R esult * Outside CT Imaging Report Only (11/22/2024 9:16 AM EDT) Historical Provider IMG CT Final Res ult * Outside XR Imaging Report Only (11/21/2024 1:58 PM EDT) Historical Provider IMG XR CHEST Final Res ult * Outside XR Imaging Report Only (11/21/2024 1:10 PM EDT) Historical Provider IMG XR CHEST Final Res ult * Outside CT Imaging Report Only (11/21/2024 1:09 PM EDT) Historical Provider IMG CT Final Res ult * Outside CT Spine Report Only (11/21/2024 1:08 PM EDT) [facility] Provider IMG CT SPINE Final Res ult * Urinalysis w/reflex Urine Culture (10/03/2024 4:31 PM EDT) COLOR Yellow Yellow [facility] CLARITY Clear [facility] GLUCOSE Negative Negative [facility] BILI Negative Negative [facility] KETONES Negative Negative [facility] SPECIFIC GRAVITY <1.005 1.005 - 1.030 [facility] BLOOD Negative Negative [facility] PH 6.0 5.0 - 8.0 [facility] Protein-UA Negative Negative [facility] NITRITE Negative Negative [facility] Leukocyte esterase, ur Negative Negative [facility] Urine (Urine) 10/03/2024 4:3 1 PM EDT 10/03/2024 4:36 PM EDT Rodger Olivo PA-C URINE ORDERABLES Final Result [facility] [address] [place] [address] * Toxicology screen, urine (10/03/2024 4:31 PM EDT) URINE CANNABINOIDS NONE DETECTED NONE DETECTED [facility] Comment:Cutoff: 50 ng/mL URINE COCAINE METAB NONE DETECTED NONE DETECTED [facility] Comment:Cutoff: 300 ng/mL URINE AMPHETAMINES NONE DETECTED NONE DETECTED [facility] Comment:Cutoff: 1000 ng/mL URINE METHADONE NONE DETECTED NONE DETECTED [facility] Comment:Cutoff: 300 ng/mL URINE OPIATES NONE DETECTED NONE DETECTED [facility] Comment:Cutoff: 300 ng/mL URINE PHENCYCLIDINE NONE DETECTED NONE DETECTED [facility] Comment:Cutoff: 25 ng/mL URINE OXYCODONE NONE DETECTED NONE DETECTED [facility] Comment:Cutoff: 300 ng/mL URINE BARBITURATES NONE DETECTED NONE DETECTED [facility] Comment:Cutoff: 200 ng/mL URINE BENZODIAZEPINE NONE DETECTED NONE DETECTED [facility] Comment:Cutoff: 200 ng/mL URINE BUPRENORPHINE NONE DETECTED NONE DETECTED [facility] Comment:Cutoff: 5 ng/mL Fentanyl, urine NONE DETECTED NONE DETECTED [facility] Comment: Cutoff: 5 ng/mL INTERPRETATION FOR TOXICOLOGY PANEL: These results are unconfirmed and should be used for Medical Treatment purposes only. Urine (Urine) 10/03/2024 4:3 1 PM EDT 10/03/2024 4:39 PM EDT us Rodger Olivo PA-C URINE ORDERABLES Final Result [address] [address] * CT ANGIO HEAD WITH AND WITHOUT CONTRAST, CT ANGIO NECK WITH CONTRAST (10/03/2024 3:46 PM EDT) Anatomical Region Laterality Modality Neck Computed Tomogra phy 10/03/2024 4:35 PM EDT Impressions 10/03/2024 4:46 PM EDT 1. Hyperdense right cerebral convexity subdural hematoma measuring 7 mm in thickness. 2. Hypodense left cerebral convexity subdural hygroma measuring 6 mm in thickness. 3. No CT evidence of an acute territorial infarct. 4. No large vessel occlusion, high-grade stenosis, aneurysm or dissection of the cervical or intracranial arteries. Findings were discussed by Dr. Godfrey Astorga with RODGER OLIVO on 10/03/2024 4:43 PM. Narrative 10/03/2024 4:[address] ANGIO HEAD WITH AND WITHOUT CONTRAST, CT ANGIO NECK WITH CONTRAST Referring clinician's provided indication for this examination in Epic: * Stroke/TIA, assess intracranial arteries TECHNIQUE: * CTA of the head was performed before and after administration of intravenous contrast using tailored dose modulation techniques. Images were reconstructed in the axial, coronal, and sagittal planes, including angiographic image post-processing. 3D angiographic images with reformatting and post-processing reconstructions were performed and interpreted. * CTA of the neck was performed after administration of intravenous contrast using tailored dose modulation techniques. Images were reconstructed in the axial, coronal, and sagittal planes. 3D angiographic images with reformatting and post- processing reconstructions were performed and interpreted. COMPARISON: CT CHEST LUNG CANCER SCREENING INITIAL FINDINGS: CT HEAD: Brain Parenchyma: No midline shift, mass effect, parenchymal hemorrhage, or evidence of acute territorial infarct. Ventricular System and Extra-Axial Spaces: Hyperdense right cerebral convexity subdural collection measuring 7 mm in thickness. Hypodense left cerebral convexity subdural hematoma measuring 6 mm in thickness. No midline shift. No hydrocephalus. Osseous and Extracranial Structures: No calvarial fracture or significant soft tissue hematoma. No significant paranasal sinus disease. Chronic fractures of the right orbital floor and right medial orbital wall. No acute orbital abnormality. CTA HEAD: No aneurysm or arteriovenous malformation. Intracranial internal carotid arteries: No occlusion or high grade stenosis. Calcific atherosclerosis of the intracranial internal carotid arteries. Anterior cerebral arteries: No occlusion or high grade stenosis. Hypoplastic left A1 segment with patent anterior communicating artery, a normal anatomic variant. Middle cerebral arteries: No occlusion or high grade stenosis. Vertebrobasilar system: No occlusion or high grade stenosis. Posterior cerebral arteries: No occlusion or high grade stenosis. Venous: No dural sinus thrombosis. CTA NECK: Aortic Arch and Branch Vessel Origins: Normal branching anatomy. No high grade stenosis. Right Carotid Artery: No occlusion, high grade stenosis or dissection. Atherosclerotic plaque results in mild stenosis of the proximal right internal carotid artery. Left Carotid Artery: No occlusion, high grade stenosis or dissection. Atherosclerotic plaque results in mild stenosis of the proximal left internal carotid artery. Right Vertebral Artery: No occlusion, high grade stenosis or dissection. Left Vertebral Artery: No occlusion, high grade stenosis or dissection. Venous structures: The jugular veins enhance normally. NON-VASCULAR FINDINGS: Lungs and Airways: No acute abnormality. Soft tissues: No adenopathy. Bones: Degenerative changes in the cervical spine. No osseous lesion. Unchanged chronic compression fracture of T2 with mild height loss. Procedure Note Godfrey Astorga MD - 10/03/2024 CT ANGIO HEAD WITH AND WITHOUT CONTRAST, CT ANGIO NECK WITH CONTRAST Referring clinician's provided indication for this examination in Epic: *Stroke/TIA, assess intracranial arteries TECHNIQUE: * CTA of the head was performed before and after administration ofintravenous contrast using tailored dose modulation techniques. Imageswere reconstructed in the axial, coronal, and sagittal planes, includingangiographic image post- processing. 3D angiographic images withreformatting and post-processing reconstructions were performed andinterpreted. * CTA of the neck was performed after administration of intravenouscontrast using tailored dose modulation techniques. Images werereconstructed in the axial, coronal, and sagittal planes. 3D angiographicimages with reformatting and post-processing reconstructions wereperformed and interpreted. COMPARISON: CT CHEST LUNG CANCER SCREENING INITIAL FINDINGS: CT HEAD: Brain Parenchyma: No midline shift, mass effect, parenchymal hemorrhage,or evidence of acute territorial infarct. Ventricular System and Extra-Axial Spaces: Hyperdense right cerebralconvexity subdural collection measuring 7 mm in thickness. Hypodense leftcerebral convexity subdural hematoma measuring 6 mm in thickness. Nomidline shift. No hydrocephalus. Osseous and Extracranial Structures: No calvarial fracture or significantsoft tissue hematoma. No significant paranasal sinus disease. Chronicfractures of the right orbital floor and right medial orbital wall. Noacute orbital abnormality. CTA HEAD: No aneurysm or arteriovenous malformation. Intracranial internal carotid arteries: No occlusion or high gradestenosis. Calcific atherosclerosis of the intracranial internal carotidarteries. Anterior cerebral arteries: No occlusion or high grade stenosis.Hypoplastic left A1 segment with patent anterior communicating artery, anormal anatomic variant. Middle cerebral arteries: No occlusion or high grade stenosis. Vertebrobasilar system: No occlusion or high grade stenosis. Posterior cerebral arteries: No occlusion or high grade stenosis. Venous: No dural sinus thrombosis. CTA NECK: Aortic Arch and Branch Vessel Origins: Normal branching anatomy. No highgrade stenosis. Right Carotid Artery: No occlusion, high grade stenosis or dissection.Atherosclerotic plaque results in mild stenosis of the proximal rightinternal carotid artery. Left Carotid Artery: No occlusion, high grade stenosis or dissection.Atherosclerotic plaque results in mild stenosis of the proximal leftinternal carotid artery. Right Vertebral Artery: No occlusion, high grade stenosis or dissection. Left Vertebral Artery: No occlusion, high grade stenosis or dissection. Venous structures: The jugular veins enhance normally. NON-VASCULAR FINDINGS: Lungs and Airways: No acute abnormality. Soft tissues: No adenopathy. Bones: Degenerative changes in the cervical spine. No osseous lesion.Unchanged chronic compression fracture of T2 with mild height loss. IMPRESSION: 1. Hyperdense right cerebral convexity subdural hematoma measuring 7 mmin thickness. 2. Hypodense left cerebral convexity subdural hygroma measuring 6 mm inthickness. 3. No CT evidence of an acute territorial infarct. 4. No large vessel occlusion, high-grade stenosis, aneurysm or dissectionof the cervical or intracranial arteries. Findings were discussed by Dr. Godfrey Astorga with RODGER OLIVO on10/03/2024 4:43 PM. us Rodger Olivo PA-C IMG CT HEAD/NECK Final Result * ECG 12-LEAD (10/03/2024 2:59 PM EDT) Ventricular Rate EKG/MIN 73 BPM [facility] Atrial Rate 73 BPM [facility] NH Interval 172 ms [facility] QRS Duration 94 ms [facility] QT Interval 434 ms [facility] QTC Interval 478 ms [facility] P [place] 10 degrees [facility] R [place] 35 degrees [facility] T [place] 49 degrees [facility] 10/03/2024 2:59 PM EDT 10/05/2024 3:02 PM EDT Narrative [facility] - 10/05/2024 3:02 PM EDT Normal sinus rhythm Low voltage QRS Cannot rule out Anterior infarct , age undetermined Abnormal ECG When compared with ECG of 05-Dec-2020 12:21, Minimal criteria for Anterior infarct are now Present No significant change was found Confirmed by Rashad Culver ([id number]) on 10/05/2024 3:02:05 PM us Rodger Olivo PA-C ECG ORDERABLES Final Result [facility] * XR Chest Portable (10/03/2024 2:40 PM EDT) Anatomical Region Laterality Modality Chest Computed Radiogr aphy 10/03/2024 3:35 PM EDT Impressions 10/03/2024 3:36 PM EDT Stable appearance of the chest. Posterior left rib fractures and right clavicle fracture. No new abnormality. Narrative 10/03/2024 3:36 PM EDT XR CHEST PORTABLE Referring clinician's provided indication for this examination in [facility]: Weakness/Malaise COMPARISON: XR RIBS 3 OR MORE VIEWS WITH PA CHEST (LEFT) FINDINGS: Devices/Tubes/Lines: None. Lungs: No focal consolidation or pulmonary edema. Pleura: No pleural effusion or pneumothorax. Heart/Mediastinum: Normal heart and mediastinum. Bones/Soft Tissues: Posterior left rib fractures are again noted. There is persistent marked deformity of the right clavicle due to previous fracture. Degenerative changes of the spine and right shoulder. Procedure Note Yesica Em MD, PhD - 10/03/2024 XR CHEST PORTABLE Referring clinician's provided indication for this examination in [facility]:Weakness/Malaise COMPARISON: XR RIBS 3 OR MORE VIEWS WITH PA CHEST (LEFT) FINDINGS: Devices/Tubes/Lines: None. Lungs: No focal consolidation or pulmonary edema. Pleura: No pleural effusion or pneumothorax. Heart/Mediastinum: Normal heart and mediastinum. Bones/Soft Tissues: Posterior left rib fractures are again noted. There ispersistent marked deformity of the right clavicle due to previousfracture. Degenerative changes of the spine and right shoulder. IMPRESSION: Stable appearance of the chest. Posterior left rib fractures and rightclavicle fracture. No new abnormality. Rodger Olivo PA-C IMG XR CHEST Final Result * Ethanol, blood (10/03/2024 2:30 PM EDT) Pathologist [facility] ETHANOL <10 <10 mg/dL [facility] Blood 10/03/2024 2:30 PM EDT 10/03/2024 2:37 PM EDT Rodger Olivo PA-C LAB BLOOD ORDERABLES Final Re sult Performing Organization Address [facility] Co de Phone Number [address] [address] * Blood Culture, Routine (10/03/2024 2:30 PM EDT) Only the most recent of2 resultswithin the time period is included. Pathologist [facility] Special Requests None 10/03/2024 1:56 PM EDT [facility] BLOOD CULTURE NO GROWTH 5 DAYS 10/08/2024 2:46 PM EDT [facility] Blood (Blood) 10/03/2024 2:3 0 PM EDT 10/03/2024 2:37 PM EDT Comment:BLOOD Rodger Olivo PA-C MICROBIOLOGY - GENERAL ORDERA BLES Final Result Performing Organization Address [facility] Co de Phone Number [address] [address] * (ABNORMAL) LFTs (hepatic panel) (10/03/2024 2:30 PM EDT) ALKALINE PHOSPHATASE 119(H) 39 - 117 U/L [facility] TOTAL BILIRUBIN 0.8 0.0 - 1.2 mg/dL [facility] DIRECT BILIRUBIN 0.3(H) 0.0 - 0.2 mg/dL [facility] Bilirubin (Indirect) 0.5 0 - 1.5 mg/dL [facility] AST 20 0 - 37 U/L [facility] ALT 14 0 - 40 U/L [facility] TOTAL PROTEIN 6.7 6.5 - 8.0 g/dL [facility] ALBUMIN 3.2(L) 3.9 - 4.8 g/dL [facility] GLOBULIN 3.5 1 - 4.8 g/dL [facility] A/G Ratio 0.91(L) 1.00 - 4.80 RATIO [facility] Blood 10/03/2024 2:30 PM EDT 10/03/2024 2:37 PM EDT us Rodger Olivo PA-C LAB BLOOD ORDERABLES Final Re sult [facility] [address] [place], [place] [id number] * (ABNORMAL) CBC and differential (10/03/2024 2:30 PM EDT) Only the most recent of2 resultswithin the time period is included. WBC 7.17 4.00 - 11.00 K/uL [facility] RBC 3.99(L) 4.50 - 5.90 M/uL [facility] HGB 13.2(L) 13.5 - 17.5 g/dL [facility] HCT 39.8(L) 41.0 - 53.0 % [facility] PLT 170 150 - 450 K/uL [facility] MCV 99.7 80.0 - 100.0 fL [facility] MCH 33.1(H) 27.0 - 31.0 pg [facility] MCHC 33.2 32.0 - 36.0 g/dL [facility] RDW 13.6 11.5 - 14.5 % [facility] MPV 9.7 8.4 - 12.0 fL [facility] NRBC 0.00 0.00 /100 WBCs [facility] ABSOLUTE NRBC 0.00 0.00 K/uL [facility] DIFF METHOD Auto [facility] NEUTS 78.4(H) 48.0 - 76.0 % [facility] LYMPHS 11.6(L) 18.0 - 41.0 % [facility] MONOS 7.8 4.0 - 11.0 % [facility] EOS 1.1 0.0 - 5.0 % [facility] BASOS 0.7 0.0 - 1.5 % [facility] Granulocytes, immature (%) 0.4 0.0 - 0.9 % [facility] ABSOLUTE NEUTS 5.62 1.92 - 7.60 K/uL [facility] ABSOLUTE LYMPHS 0.83 0.72 - 4.10 K/uL [facility] ABSOLUTE MONOS 0.56 0.16 - 1.10 K/uL [facility] ABSOLUTE EOS 0.08 0.00 - 0.50 K/uL [facility] ABSOLUTE BASOS 0.05 0.00 - 0.15 K/uL [facility] Granulocytes, immature 0.03 0.00 - 0.09 K/uL [facility] Blood 10/03/2024 2:30 PM EDT 10/03/2024 2:37 PM EDT Rodger THOMAS-C LAB BLOOD ORDERABLES Final Re sult [address] [address] * (ABNORMAL) C-Reactive Protein (10/03/2024 2:30 PM EDT) C REACTIVE PROTEIN 11.2(H) 0.0 - 4.0 mg/L [facility] Blood 10/03/2024 2:30 PM EDT 10/03/2024 2:37 PM EDT Rodger THOMAS-C LAB BLOOD ORDERABLES Final Re sult [address] [address] * Magnesium (10/03/2024 2:30 PM EDT) MAGNESIUM 2.1 1.6 - 2.6 mg/dL [facility] Blood 10/03/2024 2:30 PM EDT 10/03/2024 2:37 PM EDT Rodger THOMAS-C LAB BLOOD ORDERABLES Final Re sult Performing Organization Address City/[facility]/ZIP Co de Phone Number [address] [address] * Lactate (10/03/2024 2:30 PM EDT) LACTATE 1.33 0.50 - 2.20 mmol/L [facility] Blood 10/03/2024 2:30 PM EDT 10/03/2024 2:42 PM EDT Rodger THOMAS-C LAB BLOOD ORDERABLES Final Re sult Performing Organization Address [facility] Co de Phone Number [address] [address] * (ABNORMAL) Basic metabolic panel (10/03/2024 2:30 PM EDT) SODIUM 138 133 - 146 mmol/L [facility] CHLORIDE 106 96 - 108 mmol/L [facility] POTASSIUM 4.0 3.3 - 5.1 mmol/L [facility] CO2 23 21 - 35 mmol/L [facility] BUN 17 6 - 19 mg/dL [facility] CREATININE 1.00 0.5 - 1.5 mg/dL [facility] GLUCOSE 115(H) 70 - 99 mg/dL [facility] CALCIUM 8.8 8.4 - 10.3 mg/dL [facility] EGFR 78 >59 mL/min/1.7 3m2 [facility] Comment:Estimated glomerular filtration rate calculated using the CKD-EPI refit equation. ANION GAP 13 10 - 20 mmol/L [facility] Blood 10/03/2024 2:30 PM EDT 10/03/2024 2:37 PM EDT Rodger THOMAS-Petra LAB BLOOD ORDERABLES Final Re sult Performing Organization Address City/[facility]/ZIP Co de Phone Number [address] [place] [address] * (ABNORMAL) Monoclonal protein study, serum (09/23/2024 1:44 PM EDT) M-protein GK 1.742(H) g/dL [facility] MED/PATH [address] M-protein GL Test component not applicable or not reported. g/dL [facility] M-protein AK Test component not applicable or not reported. g/dL [facility] M-protein AL Test component not applicable or not reported. g/dL [facility] M-protein MK Test component not applicable or not reported. g/dL [facility] M-protein ML Test component not applicable or not reported. g/dL [facility] Glycosylation (SEE NOTE)(A) [facility] [place] Comment: (NOTE) Result: Yes Flag, M-protein Isotype Positive(A) Negative [facility] QMPTS Interpretation SEE NOTE [facility] Comment: (NOTE) IgG kappa 1.742 g/dL Glycosylated. Patients with glycosylated light chains are at higher risk for AL amyloidosis. C/W MGUS, myeloma, amyloidosis, etc. Suggest Immunoglobulin Free Light Chains, Serum. Suggest Monoclonal Protein Studies, 24 Hour, Urine. ADDITIONAL INFORMATION The submitted sample was assayed by five separate immunopurifications for IgG, IgA, IgM, kappa and lambda. The result reflects the findings of either no monoclonal protein detected or those monoclonal immunoglobulins that were detected. This test was developed and its performance characteristics determined by [facility] in a manner consistent with CLIA requirements. This test has not been cleared or approved by the U.S. Food and Drug Administration. IgA 39(L) 61 - 356 mg/dL [facility] IgM 14(L) 37 - 286 mg/dL [facility] DR IgG 2,110(H) 767 - 1,590 mg/dL [facility] Therapeutic Antibody Administered? No [facility] Comment:Corrected on 09/27 A T 1616: previously reported as NO Blood 09/23/2024 1:44 PM EDT 09/23/2024 2:02 PM EDT us Jerrod Sanchez [place] LAB BLOOD ORDERABLES Edited Result - Final [facility] [address] [place] [address] * (ABNORMAL) Comprehensive metabolic panel (09/23/2024 1:44 PM EDT) SODIUM 141 133 - 146 mmol/L [facility] POTASSIUM 4.2 3.3 - 5.1 mmol/L [facility] CHLORIDE 107 96 - 108 mmol/L [facility] CO2 24 21 - 35 mmol/L [facility] BUN 16 6 - 19 mg/dL [facility] CREATININE 1.30 0.5 - 1.5 mg/dL [facility] GLUCOSE 115(H) 70 - 99 mg/dL [facility] ALBUMIN 3.7(L) 3.9 - 4.8 g/dL [facility] TOTAL PROTEIN 7.8 6.5 - 8.0 g/dL [facility] CALCIUM 9.6 8.4 - 10.3 mg/dL [facility] ALKALINE PHOSPHATASE 146(H) 39 - 117 U/L [facility] TOTAL BILIRUBIN 0.8 0.0 - 1.2 mg/dL [facility] AST 23 0 - 37 U/L [facility] ALT 17 0 - 40 U/L [facility] GLOBULIN 4.1 1 - 4.8 g/dL [facility] EGFR 57(L) >59 mL/min/1.7 3m2 [facility] Comment:Estimated glomerular filtration rate calculated using the CKD-EPI refit equation. ANION GAP 14 10 - 20 mmol/L [facility] Blood 09/23/2024 1:44 PM EDT 09/23/2024 2:04 PM EDT us Jerrod Sanchez DO LAB BLOOD ORDERABLES Final Result Performing Organization Address City/[facility]/ZIP Co de Phone Number [facility] [address] [place] [address] * (ABNORMAL) Free light chains, serum (09/23/2024 1:44 PM EDT) [place] Free Light Chain 7.47(H) 0.3300 - 1.94 mg/dL [facility] Lambda Free Light Chain 1.30 0.5700 - 2.63 mg/dL [facility] [place]/Lambda FLC Ratio 5.75(H) 0.2600 - 1.65 [facility] [place] Blood 09/23/2024 1:44 PM EDT 09/23/2024 2:02 PM EDT Jerrod Sanchez DO LAB BLOOD ORDERABLES Final Result Performing Organization Address [facility] de Phone Number [facility] [place] [address] [place] [address] * (ABNORMAL) Beta-2 microglobulin, blood (09/23/2024 1:44 PM EDT) BETA 2 MICROGLOBUL 4.09(H) 0.80 - 2.34 mcg/mL [facility] Blood 09/23/2024 1:44 PM EDT 09/23/2024 2:02 PM EDT Jerrod Sanchez DO LAB BLOOD ORDERABLES Final Result Performing Organization Address City/[facility]/ZIP Co de Phone Number [facility] [address] [place] [address] * CT CHEST WITHOUT CONTRAST (09/10/2024 2:00 PM EDT) 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 No hemopneumothorax . [facility] Anatomical Region Laterality Modality Chest Computed Tomogra phy 09/10/2024 3:51 PM EDT Impressions 09/10/2024 4:01 PM EDT 1. Acute nondisplaced left rib 7 fracture and incomplete left rib 8 buckle fracture. No hemopneumothorax. 2. Numerous additional nonacute left-sided rib fractures which are new since 02/23/2024. A clinically significant result was initiated on 09/10/2024 4:01 PM, Message ID [id number]. Narrative 09/10/2024 4:[address] CHEST WITHOUT CONTRAST Referring clinician's provided indication for this examination in [facility]: * Rib fracture suspected, traumatic TECHNIQUE: Multidetector CT of the chest was performed without intravenous contrast using tailored dose modulation. COMPARISON: FINDINGS: Lines, Tubes and Devices: none. Lungs: No consolidation or suspicious pulmonary nodules. Pleura: No pleural effusion or pneumothorax. Mediastinum: Heart is not enlarged. No pericardial effusion. Nonaneurysmal thoracic aorta. No suspicious thyroid nodule. Lymph Nodes: No enlarged supraclavicular, axillary, mediastinal, or hilar lymph nodes. Upper Abdomen: No acute abnormality detected in the visualized upper abdomen. Absence of intravenous contrast limits sensitivity for detecting solid organ findings. Chest Wall: No chest wall mass. Bones: Nondisplaced fractures of left rib 7 and incomplete buckle fracture of left rib 8. Healed fractures of left ribs 2-6, new since 02/23/2024. Old displaced fracture of the right clavicle. Unchanged thoracic scoliosis. No acute fracture or malalignment of the thoracic spine. Procedure Note Sabino Chinchilla MD - 09/10/2024 CT CHEST WITHOUT CONTRAST Referring clinician's provided indication for this examination in [facility]: *Rib fracture suspected, traumatic TECHNIQUE: Multidetector CT of the chest was performed without intravenouscontrast using tailored dose modulation. COMPARISON: FINDINGS: Lines, Tubes and Devices: none. Lungs: No consolidation or suspicious pulmonary nodules. Pleura: No pleural effusion or pneumothorax. Mediastinum: Heart is not enlarged. No pericardial effusion.Nonaneurysmal thoracic aorta. No suspicious thyroid nodule. Lymph Nodes: No enlarged supraclavicular, axillary, mediastinal, or hilarlymph nodes. Upper Abdomen: No acute abnormality detected in the visualized upperabdomen. Absence of intravenous contrast limits sensitivity for detectingsolid organ findings. Chest Wall: No chest wall mass. Bones: Nondisplaced fractures of left rib 7 and incomplete buckle fractureof left rib 8. Healed fractures of left ribs 2-6, new since 02/23/2024.Old displaced fracture of the right clavicle. Unchanged thoracicscoliosis. No acute fracture or malalignment of the thoracic spine. IMPRESSION: 1. Acute nondisplaced left rib 7 fracture and incomplete left rib 8buckle fracture. No hemopneumothorax. 2. Numerous additional nonacute left-sided rib fractures which are newsince 02/23/2024. A clinically significant result was initiated on 09/10/2024 4:01 PM,Message ID [id number]. Graciela Parker PA-C IMG CT CHEST Final Result * XR RIBS 3 OR MORE VIEWS WITH PA CHEST (LEFT) (09/10/2024 12:17 PM EDT) Anatomical Region Laterality Modality Chest Computed Radiogr aphy 09/10/2024 1:26 PM EDT Impressions 09/10/2024 1:29 PM EDT Likely subacute to chronic fracture of the left posterolateral seventh rib. Narrative 09/10/2024 1:29 PM EDT XR RIBS 3 OR MORE VIEWS WITH PA CHEST (LEFT) Referring clinician's provided indication for this examination in Epic: Pain; S/P Fall; low L anterior rib pain s/p fall COMPARISON: XR RIBS 3 OR MORE VIEWS WITH PA CHEST (RIGHT) 2023-; CT CHEST LUNG CANCER SCREENING INITIAL FINDINGS: Left ribs: Likely subacute to chronic fracture of the left posterolateral seventh rib, new since 02/23/2024. PA evaluation of the chest demonstrates no focal consolidation, pleural effusion, pulmonary edema, or pneumothorax. Cardiomediastinal silhouette is normal. Procedure Note Rodger Manriquez MD, PhD - 09/10/2024 XR RIBS 3 OR MORE VIEWS WITH PA CHEST (LEFT) Referring clinician's provided indication for this examination in Epic:Pain; S/P Fall; low L anterior rib pain s/p fall COMPARISON: XR RIBS 3 OR MORE VIEWS WITH PA CHEST (RIGHT) ; [facility] INITIAL FINDINGS: Left ribs: Likely subacute to chronic fracture of the left posterolateralseventh rib, new since 02/23/2024. PA evaluation of the chest demonstrates no focal consolidation, pleuraleffusion, pulmonary edema, or pneumothorax. Cardiomediastinal silhouetteis normal. IMPRESSION: Likely subacute to chronic fracture of the left posterolateral seventhrib. Mabel Tang MD IMG XR CHEST Final Res ult * (ABNORMAL) Fecal immunochemical test x1 (FIT) (09/08/2024 7:56 PM EDT) Immuno Fecal Occult Positive(A ) Negative [facility] Stool (Stool) 09/08/2024 7:5 6 PM EDT 09/08/2024 7:58 PM EDT Miquel Lo DO BODY FLUIDS AND STOOLS ORDERABLE S Final Result [address] [address] * (ABNORMAL) Lipid panel (01/13/2024 11:58 AM EDT) HDL 62 mg/dL [facility] Comment: Interpretation <40 mg/dL: Low HDL cholesterol (major risk factor for CHD) Greater than or equal to 60 mg/dL: High HDL cholesterol ( negative risk factor for CHD) HDL - cholesterol is affected by a number of factors, e.g. smoking, excerise, hormones, sex and age. CHOLESTEROL 114 0 - 240 mg/dL [facility] TRIGLYCERIDES 64 30 - 160 mg/dL [facility] LDL 39(L) 50 - 129 mg/dL [facility] Comment: LDL levels in terms of risk for coronary heart disease: <100 mg/dL: Optimal 100-129 mg/dL: Near or above optimal 130-159 mg/dL: Borderline high 160-189 mg/dL: High >190 mg/dL: Very High CARDIAC RISK RATIO 1.8(L) 3.4 - 5.[address] [facility] Blood 01/13/2024 11:5 8 AM EDT 01/13/2024 12:09 PM EDT Miquel Lo DO LAB BLOOD ORDERABLES Final Resul t Performing Organization Address City/[facility]/ZIP Co de Phone Number [address] [address] * Hepatitis C antibody, qualitative (11/03/2018 10:31 AM EDT) HCV NON-REACTIV E NON-REACTI VE [facility] Blood 11/03/2018 10:3 1 AM EDT 11/03/2018 10:33 AM EDT Miquel Lo DO LAB BLOOD ORDERABLES Final Resul t Performing Organization Address [facility] Co de Phone Number [address] [address] * COLONOSCOPY FOR RESULT ENTRY ONLY (02/09/2014) Colonoscopy 5 yr Historical Provider HEALTH MAINTENANCE Final Result from Last 3 Months or Most Recently Relevant to Health Maintenance Additional Health Concerns Active Problems Noted Date Diagnosed Date Chronic Condition Self-Management 07/09/2021 Chronic Condition Self-Management 01/20/2023 Insurance MEDICARE PART A & [place] [address] [place] [address] MEDICARE SUPPLEMENT MEDICARE PART A & B MEDICARE SUPPLEMENT MEDICARE PART A & B Member Subscriber Plan / Payer (Ef fective 2012-Present) Name:Eren Quintero Member ID:[id number] Relation to Subscriber:Self Name:Eren Quintero Subscriber ID:[id number] Payer ID:[id number] Group ID:Not on file Type:Medicare Address: [place] [address] [place] [id number] [facility] MEDICARE SUPPLEMENT MEDICARE PART A & B [facility] MEDICARE SUPPLEMENT MEDICARE PART A & B MEDICARE SUPPLEMENT MEDICARE PART A & B MEDICARE SUPPLEMENT MEDICARE PART A & B MEDICARE SUPPLEMENT Member Subscriber Plan / Payer (Ef fective 2017-Present) Name:Eren Quintero Relation to Subscriber:Self Name:Leon Eren Payer ID:Not on file Type:Indemnity Address: [place] [id number] MEDICARE PART A & B MEDICARE SUPPLEMENT MEDICARE PART A & B [facility] [place] MEDICARE SUPPLEMENT Advance Directives For more information, please contact: [phone] (9AM - 5PM [facility], Thursday-Thursday) Documents on File Type Date Recorded 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 07/01/2024 Durable Power of Childhood Teacher 07/01/2024 * DNR/DNI (No CPR/No Intubation) (Latest Code Status on File) Date Activated Date Inactivated Comments 07/06/2020 12:32 PM Question Answer Comments Code Status Confirmed With: Patient Code Status Communicated To: PCP Code Discussion Comments: DNR/DNI * DNR/DNI (No CPR/No Intubation) Date Activated Date Inactivated Comments 07/01/2020 2:36 AM 07/06/2020 12:32 PM Question Answer Comments Code Status Confirmed With: PatientFamily Code Status Communicated To: Inpatient Attending Care Teams Twister Tender Relationship Specialty Start Date End Date Miquel Lo DO [address] [facility], [facility] [address] [place] [address] PCP - General 04/02/17 Miquel oL DO [address] [facility], [address] [place] [address] Insurance Assigned Provider 07/04/23 Chaparrita Harper, RENALDO [address] [place] [address] [email or web address] Paper Goods Machine Operator 06/05/21 Christy Novak CNP [address] [place] [phone] [email or web address] Nurse Practitioner Medical Oncology 05/05/22 Chaparrita Nicolas MD [address] [place] [phone] [email or web address] Geriatric Medicine 06/20/22 Jerrod Sanchez DO [address] [place] [address] [email or web address] Hematology and Oncology 09/09/24 Additional Source Comments The information contained in this document represents components of the legal health record. It is not the complete legal health record.[facility]
--- OUTSIDE RECORDS SUMMARY | 2024-11-30 06:09 | XMS_ITS | Encounter Summary ---
Author Organization [facility] Address [address] [place] [address] [place] [address] Phone Care Team Providers Care Interventional Physician Name Role Phone Miquel Lo DO Unavailable Miquel Lo DO Primary Care Provider [phone] Chaparrita Harper RN Unavailable Christopher Dunham MD Unavailable [phone] Christy Novak SIGNALER Unavailable Chaparrita Nicolas MD Unavailable [phone] Jerrod Sanchez DO Unavailable Encounter Details Date Type Department Care Team (Late st Contact Info) Description 01/08/2024 Procedure Pass [facility], Ct Scan - [address] [address] Social History Tobacco Use Types Packs/Day Years [...] with a working camera? Not on file Intimate Partner Violence Answer Date R ecorded Are you denied basic needs s uch as food, clothing, or medical care? No 01/02/2024 In the past 12 months have y ou been in a relationship with a person who hurts, threatens, or tries to control you? No 01/02/2024 Are you denied basic needs s uch as food, clothing, or medical care? No 01/02/2024 In the past 12 months have y ou been in a relationship with a person who hurts, threatens, or tries to control you? No 01/02/2024 Sex and Gender Information Value Date Recorded [...] Upcoming Encounters Date Type Department Care Team ([facility] st Contact Info) Description 01/10/2025 2:30 PM EDT Office Visit [facility] [address] [place] [address] Miquel Lo, DO [address] [facility], [address] [place] [address] 05/18/2025 10:30 AM EST Office Visit [facility] [address] [place] [address] Logan Scott, DO [address] [place] [address] [email or web address] documented as of this [...] RN Note: Patient Agrees with goal priority: {yes/no:[id number]} Patient Self-Management activities for this goal: {pick list:43004062} Task/Interventions: Increase participation in self-management activities Care Plan Chronic Condition Self-Managemen t No Chaparrita Harper RN Note: Patient Agrees with goal priority: {yes/no:19429643} Patient Self-Management activities for this goal: {pick list:90992118} Task/Interventions: Participation in sick day plan for condition Care Plan Chronic Condition Self-Managemen t No Chaparrita Harper RN Note: Patient Agrees with goal priority: {yes/no:65571998} Patient Self-Management activities for this goal: {pick list:62948577} Task/Interventions: Participation in telemedicine activities to monitor condition Care Plan Chronic Condition Self-Managemen t No Chaparrita Harper RN Note: Patient Agrees with goal priority: {yes/no:13822699} Patient Self-Management activities for this goal: {pick list:20333536} Task/Interventions: Understand symptoms and warning signs to report to Provider Care Plan Chronic Condition Self-Managemen t No Chaparrita Harper RN Note: Patient Agrees with goal priority: {yes/no:11198205} Patient Self-Management activities for this goal: {pick list:77396079} Task/Interventions: Improved control over condition Care Plan Chronic Condition Self-Managemen t No Chaparrita Harper RN Note: Patient Agrees with goal priority: {yes/no:59380998} Patient Self-Management activities for this goal: {pick list:93827857} Task/Interventions: No unplanned hospitalizations for condition Care Plan Chronic Condition Self-Managemen t No Chaparrita Harper RN Note: Patient Agrees with goal priority: {yes/no:57741040} Patient Self-Management activities for this goal: {pick list:24831344} Task/Interventions: Able to maintain current level of functioning Care Plan Chronic Condition Self-Managemen t No Chaparrita Harper RN Note: Patient Agrees with goal priority: {yes/no:69829200} Patient Self-Management activities for this goal: {pick list:50638436} Task/Interventions: Avoid environmental and psychosocial exposures to triggers that worsen condition Care Plan Chronic Condition Self-Managemen t No Chaparrita Harper, RENALDO Note: Patient Agrees with goal priority: {yes/no:95435595} Patient Self-Management activities for this goal: {pick list:55006551} Task/Interventions: documented as of this encounter Visit Diagnoses Not on filedocumented in this encounter Additional Health Concerns Active Problems Noted Date Diagnosed Date Chronic Condition Self-Management 07/09/2021 Chronic Condition Self-Management 01/20/2023 Assessment Noted Time PHQ-9 Depression Total Score: 19 024 12:54 PM EDT PHQ-2 Depression Total Score: 6 01/02/20 24 12:54 PM EDT documented as of this encounter Care Teams Interventional Physician Relationship Specialty Start Date End Date Miquel Lo DO [address] [place] [address] [address] [place] [address] [email or web address] PCP - General 04/02/17 Miquel Lo DO [address] [facility] [address] [place] [address] [email or web address] Insurance Assigned Provider 07/04/23 Chaparrita Harper RN [address] [place] [address] [email or web address] Jockey Valet 06/05/21 Christopher Dunham MD [address] [place] [address] [address] [place] [address] [email or web address] Primary Oncologist Medical Oncology 04/22/22 09/08/24 Christy Novak CNP [address] [place] [address] [email or web address] Nurse Practitioner Medical Oncology 05/05/22 Chaparrita Nicolas MD [address] [place] [address] [email or web address] Geriatric Medicine 06/20/22 Jerrod Sanchez DO [address] [place] [address] [email or web address] Hematology and Oncology 09/09/24 documented as of this encounter Additional Source Comments The information contained in this document represents components of the legal health record. It is not the complete legal health record.[facility]
--- OUTSIDE RECORDS SUMMARY | 2024-11-30 06:09 | XMS_ITS | Patient Health Record ---
Author Organization [facility] [place] Address [address] [place] [address] Care Team Providers Care Observation Assistant Name Role Phone Miquel Lo M.D Primary Care Provider Christy Jameson Unavailable [phone] Allergies No Known Allergies Reason For Referral No Information Medications Medication SIG (Take, Route, Frequency, Duration) Notes Start Date End Date Status Atorvastatin Calcium 80 MG 1 tablet Oral ly Once a day Active Acid Health Navigator Active Propranolol HCl 20 MG/5ML 5 mL [...] W/U Status Risk Notes Problem Atherosclerosis of [place] artery of both lower extremities, with unspecified presence of clinical manifestation (I70.203) Active confirmed Q7(A), Q8(2B), Q9(1B,2C) Vital Signs Heart Rate 96 /min 07/05/2024 Blood pressure diastolic 62 mm Hg 07/05/2024 Height 5ft 11in in 07/05/2024 Blood pressure systolic 93 mm Hg 07/05/2024 Weight 193 lbs 07/05/2024 BMI 26.92 kg/m2 07/05/2024 Encounters Encounter Location Date Provider Diagnosis [address] [address] 01/05/2024 Christy Perica Atherosclerosis of [place] artery of both lower extremities, with unspecified presence of clinical manifestation I70.203 ; Tinea unguium B35.1 ; Pain in right toe(s) M79.674 and Pain in left toe(s) M79.[address] [address] 07/05/2024 Christy Perica Atherosclerosis of [place] artery of both lower extremities, with unspecified presence of clinical manifestation I70.203 ; Tinea unguium B35.1 ; Pain in right toe(s) M79.674 and Pain in left toe(s) M79.675 Assessments Encounter Date Diagnosis (ICD Code) Assessment Notes Treatment Notes Treatment Clinical Notes Section Notes 01/05/2024 Tinea unguium (ICD-10 - B35.1) 01/05/2024 Atherosclerosis of [place] artery of both lower extremities, with unspecified presence of clinical manifestation (ICD-10 - I70.203) Q7(A), Q8(2B), Q9(1B,2C) 07/05/2024 Atherosclerosis of [place] artery of both lower extremities, with unspecified [...] Medicare [employer] [address] [place] [address] [id number] Eren Quintero Self - patient is the insured [facility] [address] [place] [address] [id number] Yesica Quintero Spouse - patient is the spouse of the insured Medical (General) History Medical History History ICD Code Back,Hip,and Knee pain Broken bones Cataracts Dementia Depression Poor circulation Reflux GERD Stroke blood clots Surgical History Surgery Date(Month/Year) kidney surgery x4 Broken/Fracture Leg eye surgery colonoscopy Tooth extraction tonsillectomy
--- OUTSIDE RECORDS SUMMARY | 2024-11-30 06:09 | XMS_ITS | Encounter Summary ---
Author Organization [facility] Address [facility] [address] [place] [phone] Phone Care Team Providers Care Nurse Charge Rn Name Role Phone Miquel Lo DO Unavailable Miquel Lo DO Primary Care Provider Chaparrita Harper RN Unavailable Christopher Dunham MD Unavailable Christy Novak CNP Unavailable Chaparrita Nicolas MD Unavailable [phone] Jerrod Sanchez DO Unavailable Reason for Visit * Reason Onset Date Comments Fall 07/21/2024 call from provider 07/21/2024 Encounter Details Date Type Department Care Team (Late st Contact Info) Description 07/21/2024 Nurse Triage [facility] [address] [place] [address] Miquel Lo DO [address] [facility] [address] [place] [address] [email or web address] Fall; call from provider Social History Tobacco Use Types Packs/Day Years [...] Progress Notes * Oleg Donahue RN - 07/21/2024 3:25 PM EDT 87/40 with standing, 94/49 when leaving, fell from work bench to floor, refused to go to ER. Was tipsy over night, does have dementia, felt that he was ok over night, states that they fall often, states that they [place] [facility] was advised to go the ER. Hx stroke, has balance issues and fall often. Bleeding from back of his head, had to wrap it up, bleeding under control. Pt denies passing out. No vomiting - some nausea. Not on blood thinners. states that pt is fine at the moment, advised to push fluids, move slowly to avoid any falls. Monitor closely. Is aware to seek care in ERfor any neurological deficits, any slurred speech, or any severe and progressive symptoms. Is awareto call back if any questions or concerns. Appt with Dr. Rockwell tomorrow. Fyi to pcp Reason for Disposition Patient is confused or is an unreliable provider of information (e.g., dementia, severe intellectual disability, alcohol intoxication) Protocols used: Head Lseymn-[id number]-RR Nurse Triage Encounter Note Reason for Triage Kadie Wiggins contacted office for Fall Other Call Disposition See Today In Office Disposition Comments: Patient/caregiver understands and will follow disposition: Yes Initial Symptom Screening and Assessment IA None Care Advice Patient/Caregiver understands and will follow care advice?: Yes, plans to follow advice Head Suqbmv-[id number]-OU Oleg Donahue RN [facility] Jul 21, 2024 03:34 PM Disposition and First Aid SEE IN OFFICE OR VIDEO VISIT TODAY: * You need to be examined today or have a video telemedicine visit. * PCP OFFICE VISIT: Let me give you an appointment. * TRIAGER OPTION - MAKE VIDEO VISIT APPOINTMENT: I am going to set up a video telemedicine visit for you. * IF NO AVAILABLE OFFICE OR VIDEO APPOINTMENTS: You need to be seen in an Urgent Care Center. Go tothe one at [facility]. Go there today. A nearby Urgent Care Center is often a good source of care. Anotherchoice kalyani to go to the Emergency Department. Treatment of a Minor Bruise USE A COLD PACK FOR PAIN, SWELLING, OR BRUISING: * Put a cold pack or an ice bag (wrapped in a moist towel) on the area for 20 minutes. * Repeat in 1 hour, then every 4 hours while awake. * Continue this for the first 48 hours (2 days) after an injury. * This will help decrease pain, swelling, and bruising. * Caution: Avoid frostbite. OBSERVATION AFTER A HEAD INJURY: * Have someone stay with you for the first 24 hours after a head injury. They should watch for any new or worsening symptoms. * It is OK to rest and sleep. The person watching you should wake you every 4 hours for the first 24 hours. * They should check that you wake-up and behave normally. EXPECTED COURSE: * Most injuries to the head only cause a MINOR BRUISE or SMALL SCRAPE to the scalp. * Bruising, pain, and swelling usually start to get better 2 to 3 days after an injury. Swelling should go away within 1 week. Bruising fades and tenderness go away slowly over 1 to 2 weeks. * Small cuts and scrapes usually heal within 10 days. CALL BACK IF: * Severe headache lasts over 2 hours after ice pack and pain medicines * Extremity weakness or numbness occurs * Slurred speech or double vision occurs * Vomiting occurs * You become worse REASSURANCE AND EDUCATION - DIRECT BLOW (MINOR BRUISE, CONTUSION): * This sounds like a minor bruise to the scalp, rather than a brain injury or concussion. * Any type of direct blow to your skin can cause a bruise. The medical term for bruise is contusion. * Symptoms are mild pain, swelling, and bruising. * A bruise can look red at first and then turn blue or purple. The color is from bleeding under theskin due to broken blood vessels. * Sometimes there can also be mild dizziness and nausea for a couple hours after the injury. * Here is some care advice that should help. Treatment of a Small Cut or Scrape CLEAN THE WOUND: * Wash the wound with soap and water. * For any dirt, scrub gently with a washcloth. * Bleeding: Put direct pressure on the wound for 10 minutes to stop any bleeding. Place a clean cloth or gauze pad over the wound. Press down firmly with your fingers over the bleeding area. Rspr-Tzm-[id number] Pain Medicines CALL BACK IF: * You have more questions * You become worse Black Eyes After a Forehead Bruise (Contusion) CALL BACK IF: * Severe headache lasts over 2 hours after ice pack and pain medicines * Extremity weakness or numbness occurs * Slurred speech or double vision occurs * Vomiting occurs * You become worse Patient will call back with additional questions or if symptoms change or worsen Oleg Donahue RN Reason for Disposition and Assessment * Meli Farmer - 07/21/2024 3:20 PM EDT Pts called back and would like a return phone call. Please call [phone] * Renita Shannon RN - 07/21/2024 2:18 PM EDT LVM to have call office. * Renita Shannon RN - 07/21/2024 2:14 PM EDT Spoke to PT, states patient is no longer in office, would like a phone call. * Coy Ashley - 07/21/2024 1:12 PM EDT [facility] PT called in, Pt sustained fall a fall yesterday, the patient is at their office. Attempted warm transfer to triage. Please contact Pat his spouse. Central Support Catalogue Clerk (Please do not reply to this user; this inbox is not monitored.) Thank you. documented in this encounter Plan of Treatment Upcoming Encounters Date Type Department Care Team (Late st Contact Info) Description 01/10/2025 2:30 PM EDT Office Visit [address] [address] Miquel Lo, DO [address] [facility], [address] [place] [address] 05/18/2025 10:30 AM EST Office Visit [facility] [address] [place] [address] Logan Scott, DO [address] [place] [address] [email or web address] documented as of this encounter Goals Goal [...] Provider Care Plan Chronic Condition Self-Managemen t Chaparrita Coleman RN Improved control over condition Care Plan [...] Chronic Condition Self-Managemen t Chaparrita Coleman RN Note: Patient Agrees with goal priority: {yes/no:[id number]} Patient Self-Management activities for this goal: {pick list:[id number]} Task/Interventions: Increase participation in self-management activities Care Plan Chronic Condition Self-Managemen t No Chaparrita Harper RN Note: Patient Agrees with goal priority: {yes/no:30621589} Patient Self-Management activities for this goal: {pick list:[id number]} Task/Interventions: Participation in sick day plan for condition Care Plan Chronic Condition Self-Managemen t No Chaparrita Harper RN Note: Patient Agrees with goal priority: {yes/no:13320877} Patient Self-Management activities for this goal: {pick list:[id number]} Task/Interventions: Participation in telemedicine activities to monitor condition Care Plan Chronic Condition Self-Managemen t No Chaparrita Harper RN Note: Patient Agrees with goal priority: {yes/no:61431257} Patient Self-Management activities for this goal: {pick list:35862544} Task/Interventions: Understand symptoms and warning signs to report to Provider Care Plan Chronic Condition Self-Managemen t No Chaparrita Harper RN Note: Patient Agrees with goal priority: {yes/no:88091700} Patient Self-Management activities for this goal: {pick list:34003376} Task/Interventions: Improved control over condition Care Plan Chronic Condition Self-Managemen t No Chaparrita Harper RN Note: Patient Agrees with goal priority: {yes/no:41197911} Patient Self-Management activities for this goal: {pick list:49741844} Task/Interventions: No unplanned hospitalizations for condition Care Plan Chronic Condition Self-Managemen t No Chaparrita Harper RN Note: Patient Agrees with goal priority: {yes/no:48683608} Patient Self-Management activities for this goal: {pick list:78415221} Task/Interventions: Able to maintain current level of functioning Care Plan Chronic Condition Self-Managemen t No Chaparrita Harper RN Note: Patient Agrees with goal priority: {yes/no:09540833} Patient Self-Management activities for this goal: {pick list:23322894} Task/Interventions: Avoid environmental and psychosocial exposures to triggers that worsen condition Care Plan Chronic Condition Self-Managemen t No Chaparrita Harper, RN Note: Patient Agrees with goal priority: {yes/no:53912211} Patient Self-Management activities for this goal: {pick list:11503053} Task/Interventions: documented as of this encounter Visit Diagnoses Not on filedocumented in this encounter Additional Health Concerns Active Problems Noted Date Diagnosed Date Chronic Condition Self-Management 07/09/2021 Chronic Condition Self-Management 01/20/2023 Assessment Noted Time PHQ-9 Depression Total Score: 9 06/03/19 6:33 PM EST PHQ-2 Depression Total Score: 4 06/03/19 6:33 PM EST documented as of this encounter Care Teams Nurse Charge Rn Relationship Specialty Start Date End Date Miquel Lo DO [address] [place] [phone] [email or web address] PCP - General 04/02/17 Miquel Lo DO [address] [place] [phone] [email or web address] Insurance Assigned Provider 07/04/23 Chaparrita Harper, RENALDO [address] [place] [phone] [email or web address] Fur Floor Worker 06/05/21 Christopher Dunham MD [address] [place] [phone] [email or web address] Primary Oncologist Medical Oncology 04/22/22 09/08/24 Christy Novak CNP [address] [place] [phone] [email or web address] Nurse Practitioner Medical Oncology 05/05/22 Chaparrita Nicolas MD [address] [place] [phone] [email or web address] Geriatric Medicine 06/20/22 Jerrod Sanchez DO [address] [place] [phone] [email or web address] Hematology and Oncology 09/09/24 documented as of this encounter Additional Source Comments The information contained in this document represents components of the legal health record. It is not the complete legal health record.[facility]
--- NOTE | 2024-11-30 06:30 | PC.NURSE ---
at approximately this time this RN heard this pt yell out along w/ a loud noise. Upon entering the pt's room the pt was found to be laying on the floor, provider Esvin Marrero at the bedside assessing the pt, VSS, camera placed in pt room for safety, pt became increasingly agitated and combative w/ provider, attempting to get out of bed stating I need to get out of here, I need to go to the bathroom. Pt non redirectable even w/ reassurance of kelly cath in place. 1:[address] for safety.
[2024-11-30 07:06] LABS: Appearance Urine Clear; Glucose Urine UA Negative (Negative); PH 7.5 (5.0-9.0); Specific Gravity - Urine <= 1.005 (1.005-1.025); UMIC TRIGGER UACC YES
[2024-11-30 07:16] LABS: UACC Culture Trigger YES
--- NOTE | 2024-11-30 11:52 | PC.NURSE ---
updated on plan of care, requesting [facility] psych eval d/t agitation . MD / case management aware
--- NOTE | 2024-11-30 12:37 | MHC.CM.ED ---
Patient is currently in ER. Received notification from RENALDO Henson that patient's reports [facility] is requesting psych eval before returning to facility. Reached out to facility. [facility] is asking for psych for med rec r/t behaviors. Patient would also need to be sitter free for at least 24 hours and improvement in behaviors. Natividad MACARIO made aware. Continue to monitor for d/c needs.
--- NOTE | 2024-11-30 13:29 | MHC.CARE ---
CARE team met with Pt at bedside. Pt's provided majority of collateral information. Disposition is psych consult at this time.
--- NOTE | 2024-11-30 16:21 | PC.NURSE ---
MD aware of low BP stating to give midodrine , medicated per mar. Patient calm and cooperative
--- NOTE | 2024-11-30 20:13 | PC.NURSE ---
Patient kicking and trashing, threw chips on the floor. Determine to leave the hospital. Patient moved back in bed, as he was scaling down stretcher side rails. Patient has kelly in, intact, draining well. Pt refusing to eat, and his nightly medication. Pt has a 1 to 1 with him to ensure safety do to history of falls. Patient is agitated and unwilling to reason. Attempted to have therapeutic conversation with patient, at this time patient is requesting space. Pt able to make needs known. Sitter is within arms reach and has call rae for patient to ensure needs are known.
--- NOTE | 2024-11-30 20:20 | PM.PSYCN ---
History of Present Illness Date of Service: 11/30/24 Chief Complaint: fall Reason for Consult: aggressive behaviors Requesting physician: Ayden Marrero Discussed with referring provider: Yes (On duty provider- Dr NILSON DUNLAP) Sources of Information: patient interviewed, chart reviewed and crisis/core team assessment reviewed HPI Narrative: Per ED provider note: Patient is a 79-year-old male with a history of dementia presents from [facility] after unwitnessed fall. The patient has seemed agitated overnight, he kept pulling at his Cruz catheter. Patient was seen by Care team. Collateral done with and staff at [facility]. Patient was just discharged from [facility] on 11/29/24. Spent a night at this facility, had a fall and combative/aggressive behavior toward staff at the facility. also requests to be [facility] settings to address aggressive behaviors. Meet with patient at bedside tonight by 2039. Patient is cooperative. Appears anxious but pleasant. He is A+Ox3, knowing reasons for being back to the hospital. Denies pain or discomfort but report I have bad shoulder . He reports he fell this morning at new facility but not remember his aggressive/agitated behavior toward staff. He admitted that he is forgetful at times and sick of canoe trip . report has been feeling depressed, feeling negative and having passive SI for about a year . He reports it was brutal when they took my license away about 1.5 years ago as they said I was dizzy and lose concentration for reason of the license was taken away. Report hx of depression but denies other psychiatric dz. He is not aware of hx of vascular dementia. Report he has been sleeping well but feeling frustrated with too many people picking on me . Report he sometime and occasional seeing shadow of his but she was not there and sometimes feeling like he has scenario playing in his head Gosh figures in his head when he was sleeping. He agrees with psychiatric admission to address his psychiatric behaviors and address SI/AVH. Assure him that his can visit him daily as he is worrying about not able to see the love of my life . Explained to patient medication plan which he is receptive. He does not remember home meds but has been compliant. Past Psychiatric History: Per Care team note, no significant psychiatric hx . Patient reports he has hx of depression. Deferring to medical/ED team Personal & Social History: Came from [facility] Review of Systems Review of Systems No SOB. No breathing issues. No N/V. Denies pain. [facility] Medical History Subdural hematoma BPH (benign prostatic hyperplasia) Vascular dementia Family History: Report he has a and two children with 6 beautiful grandkids . Social History: . Currently retired Substance History: Denies substance use hx. Denies alcohol problems. Utox not completed Trauma History: Not discuss Diagnostics Vital Signs (24Hr): Vital Signs - 24 hr 11/30/24 02:15 11/30/24 04:34 11/30/24 06:26 Temperature 98.6 F 98.7 F 97.7 F Pulse Rate 106 H 106 H 111 H Respiratory Rate 16 15 22 H Blood Pressure 107/69 116/68 120/72 Pulse Oximetry 99 96 95 Oxygen Delivery Method Room Air Room Air Room Air 11/30/24 06:39 11/30/24 09:34 11/30/24 11:01 Temperature 98.0 F 98.1 F Pulse Rate 109 H 106 H 94 Respiratory Rate 20 16 18 Blood Pressure 112/73 115/64 103/68 Pulse Oximetry 96 96 96 Oxygen Delivery Method Room Air Room Air Room Air 11/30/24 13:08 11/30/24 16:00 11/30/24 16:20 Temperature 98.3 F Pulse Rate 109 H 87 Respiratory Rate 16 16 Blood Pressure 105/63 87/47 L 86/53 L Pulse Oximetry 96 Oxygen Delivery Method Room Air Room Air 11/30/24 17:45 11/30/24 18:00 11/30/24 18:46 Temperature Pulse Rate 78 Respiratory Rate 18 Blood Pressure 90/54 L 90/66 96/55 L Pulse Oximetry 98 Oxygen Delivery Method Room Air 11/30/24 19:56 Temperature Pulse Rate 82 Respiratory Rate 17 Blood Pressure 95/61 Pulse Oximetry Oxygen Delivery Method BMI result Body Mass Index 21.3 Labs 11/30/24 02:52 11/30/24 02:52 Labs: Laboratory Results - last 48 hr 11/30/24 11/30/24 02:52 06:48 WBC 7.1 RBC 3.66 L Hgb 11.7 L Hct 34.5 L MCV 94.3 MCH 32.0 MCHC 33.9 RDW 13.2 Plt Count 182 MPV 9.7 Immature Gran % (Auto) 0.4 Neut % (Auto) 67.2 Lymph % (Auto) 19.1 L [place] % (Auto) 6.4 Eos % (Auto) 6.6 H Baso % (Auto) 0.3 Lymph # (Auto) 1.4 [place] # (Auto) 0.5 Eos # (Auto) 0.5 H Baso # (Auto) 0.0 Abs Immat Gran (auto) 0.03 Absolute Neuts (auto) 4.8 Absolute Nucleated RBC 0.000 Nucleated RBC % (auto) 0.0 Sodium 144 Potassium 4.7 D Chloride 112 H Carbon Dioxide 24 Anion Gap 13 BUN 6 L Creatinine 1.05 Estim Creat Clear Calc 57.7 Estimated GFR > 60 Random Glucose 128 H Calcium 7.9 L D Total Bilirubin 0.3 AST 52 H ALT 38 Alkaline Phosphatase 92 Troponin I High Sens 14.0 Total Protein 6.4 L Albumin 2.6 L Urine Color Yellow Urine Appearance Clear Urine pH 7.5 Ur Specific Sur[place] <= 1.005 Urine Protein 100 (2+) H Urine Glucose (UA) Negative Urine Ketones Negative Urine Blood Large (3+) H Urine Nitrite Negative Ur Leukocyte Esterase Large (3+) H Urine RBC >20 H Urine WBC 6-10 Ur Squamous Epith Cells 0-2 Urine Bacteria None Seen Hyaline Casts 0-2 Imaging Radiology Impressions: ITS Impressions Clavicle X-Ray 11/30/24 08:08 IMPRESSION: Inferiorly displaced fracture distal right clavicle, probable old. Degenerative changes, right shoulder. Consider calcific tendinosis/tendinopathy, supraspinatus. Electronically signed by: Raghav Porras MD 11/30/2024 09:28 AM EDT Mental Status Exam Mental Status Exam Narrative: Patient is A&O x3. Not knowing the month or date but knowing the year and situation led to the hospital- Fall. He is anxious but pleasant and cooperative. Engaged in conversation and funny making jokes at times. He is depressed and anxious, not irritable during 1-1 assessment. He is receptive the plan of care of psychiatric admission. He is receptive to plan of medications. He is aware cognitive declines as sometimes he is forgetful. Mild hearing declines but able to answer the questions appropriately. Report he is suicidal d/t depression and sometimes hearing voices and seeing his but she was not there. He does not make any delusional or paranoia statements. Do not appear to respond to internal stimuli. Denies SIB/HI. He is wearing hospital attire with unkempt hair. Judgment and insight are fair to poor. Medications Medications Current Medications Acetaminophen (Acetaminophen 325 Mg Tablet) 650 mg PO Q6H PRN PRN Reason: Pain, Moderate(Pain Scale 4-6) Atorvastatin Calcium (Atorvastatin Calcium 80 Mg Tablet) 80 mg PO DAILY [facility] Last Admin: 11/30/24 16:21 Dose: 80 mg Bisacodyl (Bisacodyl 10 Mg Supp.Rect) 10 mg WV DAILY PRN PRN Reason: Constipation Finasteride (Finasteride 5 Mg Tablet) 5 mg PO DAILY [facility] Last Admin: 11/30/24 18:32 Dose: Not Given Magnesium Hydroxide (Milk Of Magnesia 30 Ml Oral.Susp) 30 ml PO DAILY PRN PRN Reason: Constipation Melatonin (Melatonin 3 Mg Tablet) 6 mg PO BEDTIME [facility] Midodrine (Midodrine Hcl 10 Mg Tablet) 10 mg PO TIDWM [facility] Last Admin: 11/30/24 18:31 Dose: Not Given Mirtazapine (Mirtazapine 7.5 Mg Tablet) 7.5 mg PO BEDTIME [facility] Omeprazole (Omeprazole 20 Mg Capsule.Dr) 20 mg PO DAILY@0630 [facility] Last Admin: 11/30/24 18:32 Dose: Not Given Quetiapine Fumarate (Quetiapine Fumarate 25 Mg Tablet) 25 mg PO DAILY@1700 [facility] Quetiapine Fumarate (Quetiapine Fumarate 25 Mg Tablet) 25 mg PO BID PRN PRN Reason: agitation Senna (Sennosides 8.6 Mg Tablet) 8.6 mg PO Q12H PRN PRN Reason: Constipation Sodium Biphosphate/Sodium Phosphate (Sodium Phosphate,[place]-Dibasic 133 Ml Enema) 118 ml WV DAILY PRN PRN Reason: Constipation Tamsulosin HCl (Tamsulosin Hcl 0.4 Mg Capsule) 0.4 mg PO DAILY [facility] Last Admin: 11/30/24 18:32 Dose: Not Given Allergies Allergies Allergy/AdvReac Type Severity Reaction Status Date / Time No Known Allergies Allergy Verified 11/30/24 02:25 Assessment & Plan Assessment & Plan (1) Aggressive behavior due to dementia: Status: Acute Code(s): F03.918 - Unspecified dementia, unspecified severity, with other behavioral disturbance Plan Increased unsafe behaviors related to dementia, fell at new facility. Worsening depression and anxiety symptoms, negative thoughts with passive SI and AVH. He is not appropriate to return to SNF or rehab unless he is psychiatric mentally stable. Therefore, he meets criteria for psychiatric admission to monitor his safety, medication management, and refer paitent tp OP psychiatric services for aftercare. Once he is stable, will refer him back to rehab/SNF as appropriate. Plan: Care team informed that patient is on bed search. She is happy about the news but worry about insurance coverage and if rehab will save the bed for her . Per record, patient was given Seroquel 25mg at 1700 daily. Will restart with 25mg BID PRN for severe agitation. Trazodone 50mg at HS PRN for insomnia. Case discuss with care team and on duty provider Dr Dunlap regarding psychiatric admission plan. Total time managing care of this patient today ____ minutes. Patient educated on: diagnosis, medication risk/benefits and therapeutic strategies Informed Consent: further education needed
--- NOTE | 2024-11-30 21:07 | PC.NURSE ---
Basim currently at bedside with patient and 1 to 1.
--- NOTE | 2024-11-30 22:53 | PC.NURSE ---
Offered patient night medication, he states he can fall asleep whenever he wants and he does not want the medications. Attempted to tell him one is a routine medication that he gets. He said he didn't care, he isnt going to take it. Patient pleasant otherwise, talking about his , and time in [place] [employer]. Patient ate sandwich and chips for dinner. Drinking well. Patient has kelly attached, patent and clear.
[2024-12-01] VITALS (8 sets, daily range): BP systolic 74–110; BP diastolic 40–65; PULSE 73–86; RESP 14–18; TEMP 36.3–36.6; O2SAT 95–97; BMI 20.2
--- NOTE | 2024-12-01 01:33 | PC.NURSE ---
patient behavior escalating. hitting staff, kicking, yelling. patient not cooperative with calming down. PA at bedside and oder for IV Haldol to assist with patients behavior. med administered to patient. see restraint documentation.
--- NOTE | 2024-12-01 04:40 | PC.NURSE ---
Patient resting comfortably with a warm blanket, able to keep pulse ox on while resting. Patient RR are even and unlabored. 1 to 1 sitting near monitoring patient. Able to make needs known. Chest has equal rise and fall. Side rails are up to maintain safety, kelly cath intact.
--- NOTE | 2024-12-01 08:49 | PC.NURSE ---
assumed care of patient at 0700, patient is asleep in bed, resp even and unlabored, has sitter 1:1. patient moved into hospital bed for comfort, patient was aggressive and verbally abusive with staff. patient states he wants to be left alone, patient educated that we are trying to care for him, making sure hes clean and comfortable and patient states he doesn't care anymore. patient refusing medications at this time, noted to be hypotensive, ED provider made aware. patient given weighted blanket, wearing it on his shoulders. attempted to call patients son David for family involvement, no answer at this time. patient is now resting quietly in bed, sitter 1:1
--- NOTE | 2024-12-01 10:50 | PC.NURSE ---
Pt's is at bedside. Requesting to speak to case management regarding insurance coverage. updated on plan of care. Pending [facility] bed.
[2024-12-01 12:37] LABS: Parathyroid Hormone Intact 52.5 pg/mL (8.7-77.1)
--- NOTE | 2024-12-01 18:40 | PC.ADMIT ---
Patient is a 79 y.o. male. Transferred from [facility] initially from [facility]. Admitted for increased behaviors of agitation combative, unspecified Dementia and multiple falls. Patient is alert, oriented to self, month and year. Pleasant and calm on approach. Cooperative with vitals and skin check. He has multiple bruising, scratches and scabbed areas on lower and upper extremities. He has two skin tears, one on left hand 4x2.5.0.1 and one on the right hand 1,8x0,8x0.1. New order for the wound care. F/C d/t urinary retention. IV site in left lower arm. No known allergies. Pt thinks he came from home where he resides with his . Upon arrival to the unit his vitals are as follow: 97.7, 78, 101/65, O2sat 96% on RA. WT 65.8 KG. Said he has some pain in left arm but refused offered Tylenol. Jaja Loza. aware. Pt wears both upper and lower dentures. Oriented to the unit, provided toiletries, menus completed. Signed release of info for his Yesica Crowley and statement reg. valuables. Pt is 12 B status. Patient is on ABT/UTI Ceftin 250mg BID. Awaiting Xray of left shoulder. Initialized on 12/01/24 18:08 - END OF NOTE
--- NOTE | 2024-12-02 09:29 | HO.PSYADMNOT ---
HPI Date of Service: 12/02/24 Chief Complaint: agitation Sources of Information: patient interviewed, chart reviewed and crisis/core team assessment reviewed HPI Subjective Notes: Section 12B Narrative: Mr. Quintero is a 79 year-old male with hx of dementia who was recently discharged from [facility] after medical admission as step down to [facility] and came back due to increase combative behaviors and aggression. Pertient labs completed in the ED include CBC with chronic normocytic anemia, stable H&H. CMP without electrolyte abnormalities exept for calcium which seems to be chronically low at 8.00. However, his albumin is very low 2.6 and when ionized calcium is check his calcium level is 5.2. His BUN 11, Cr 0.87, creatinine clearance 66.1. UA with protein, blood, leukocytes, no nitrites nor bacteria, culture had no growth. Note that he recently had acute on chronic hematoma, head CT shows that is currently stable. On the unit, pt presents as calm. He is able to tell that he is in the hospital but not sure which hospital he is in. He thinks this may be [facility]. He reports he is here because of a fall. He does not have any recollection as to where he was prior to coming back to the hospital. He does not recall being aggressive towards anyone. He does not know the month and when it comes to the year he states 1994 or 2094. He denies any physical concerns. He does report some dizziness. His BP noted to be very low and recently he was started on midodrine. Colllateral information was gathered from his . She reports pt has been having multiple falls, leading intracraneal hemorrage. He was admitted at [facility] and then here at [facility]. He has been in the hospital now for about one month. Per , pt has been more aggressive at home and more confused. She reports she is no longer able to care for him given his multiple falls and amount of care he requires. Past Psychiatric History: Per Care team note, no significant psychiatric hx . Patient reports he has hx of depression. Medical Evaluation Reviewed: Yes [facility] Medical History Subdural hematoma BPH (benign prostatic hyperplasia) Vascular dementia Family History: none Social History: . He has two adult children and 6 grandchildren. He is currently retired. Substance History: none Trauma History: Not discuss Diagnostics Vital Signs (24Hr): Vital Signs - 24 hr 12/01/24 10:41 12/01/24 14:19 12/01/24 17:57 Temperature 97.3 F Pulse Rate 73 78 Respiratory Rate 14 18 Blood Pressure 110/51 L 101/65 92/60 Pulse Oximetry 96 Oxygen Delivery Method Room Air 12/01/24 20:00 Temperature 97.4 F Pulse Rate 86 Respiratory Rate 16 Blood Pressure 74/40 L Pulse Oximetry 95 Oxygen Delivery Method Room Air BMI result Body Mass Index 20.2 Labs 12/02/24 13:49 12/02/24 13:49 Labs: Laboratory Results - last 48 hr 12/01/24 12:01 PTH Intact 52.5 Imaging Radiology Impressions: ITS Impressions Clavicle X-Ray 11/30/24 08:08 IMPRESSION: Inferiorly displaced fracture distal right clavicle, probable old. Degenerative changes, right shoulder. Consider calcific tendinosis/tendinopathy, supraspinatus. Electronically signed by: Raghav Porras MD 11/30/2024 09:28 AM EDT RP Meds/Allergies Meds Home Medications ?Medication ?Instructions ?Recorded ?Confirmed ?Type acetaminophen 325 mg tablet 650 mg PO Q4H PRN Pain 11/21/24 11/30/24 History acetaminophen 325 mg tablet 650 mg PO Q6H PRN Fever 11/21/24 11/30/24 History atorvastatin 80 mg tablet 80 mg PO DAILY 11/21/24 11/30/24 History bisacodyl 10 mg rectal suppository 10 mg NC DAILY PRN Constipation 11/21/24 11/30/24 History hydrocortisone 1 % topical 1 appl topical BID 11/21/24 11/30/24 History ointment (Cortizone-10) magnesium hydroxide 400 mg/5 mL 30 ml PO DAILY PRN Constipation 11/21/24 11/30/24 History oral suspension (Milk of Magnesia) melatonin 3 mg tablet 6 mg PO BEDTIME 11/21/24 11/30/24 History menthol 5 % topical patch (Icy Hot 1 patch topical DAILY 11/21/24 11/30/24 History (menthol)) midodrine 5 mg tablet 10 mg PO TID 11/21/24 11/30/24 History mirtazapine 15 mg tablet 7.5 mg PO BEDTIME 11/21/24 11/30/24 History pantoprazole 40 mg tablet,delayed 40 mg PO DAILY@0630 11/21/24 11/30/24 History release (Protonix) sennosides 8.6 mg tablet (Senna 8.6 mg PO Q12H PRN Constipation 11/21/24 11/30/24 History Lax) sodium phosphates 19 gram-7 118 ml NC DAILY PRN Constipation 11/21/24 11/30/24 History gram/118 mL enema (Fleet Enema) tamsulosin 0.4 mg capsule (Flomax) 0.4 mg PO DAILY 11/21/24 11/30/24 History Allergies Allergies Allergy/AdvReac Type Severity Reaction Status Date / Time No Known Allergies Allergy Verified 11/30/24 02:25 Mental Status Exam Mental Status Exam Narrative: Appearance: wearing hospital gown, fair hygiene, in NAD Behavior: calm Psychomotor: no agitation or retardation noted Speech: mostly clear, normal rate/rhythm/volume, spontaneous TP: mostly linear TC: feeling tired Mood: good Affect: congruent SI: denies HI: denies VH/AH: no overt signs but per he has on and off Delusions: no delusional content reported Insight/judgment: impaired x 2. Memory/cog: alert, knows he is in a hospital, not exactly which one but this seems to fluctuate, not oriented to month nor year. severe inability to retain new information and remember events leading to this admission. Assessment & Plan Assessment & Plan (1) Major neurocognitive disorder due to multiple etiologies, with psychotic disturbance: Status: Acute Code(s): F02.82 - Dementia in other diseases classified elsewhere, unspecified severity, with psychotic disturbance (2) Lewy body dementia with psychotic disturbance: Status: Acute Code(s): G31.83 - Neurocognitive disorder with Lewy bodies; F02.82 - Dementia in other diseases classified elsewhere, unspecified severity, with psychotic disturbance Plan Mr. Quintero is a 79 year-old male with hx of Dementia, it does appear to be of Lewy Body with periods of visual hallucinations, autonomic dysfunction, some degree of fluctuation in terms of orientation. HCP has been invoked, he is CV by HCP. Will continue seroquel for now and assess efficacy. PLAN 1. Admit to S1, CV by HCP. 2. continue seroquel 3. aftrecare planning. Patient educated on: diagnosis and medication risk/benefits Guardian/Caregiver educated on: diagnosis and medication risk/benefits Informed Consent: understands Reason for continued inpatient stay Substantial Risk for: harm to others and inability to function Statement Statement: I have reviewed the history and physical and performed a pertinent examination on my patient. No changes have occurred unless specified. If the History and Physical was not performed prior to admission, the Hospitalist's service will be consulted for completing the admission physical. Time Spent With Patient Time: Total time managing care of this patient today ____ minutes.
[2024-12-02 11:08] VITALS: BP 86/56; PULSE 75; RESP 16; TEMP 36.8; O2SAT 94
[2024-12-02] MEDS: Hydrocortisone 1 % Ointment 28.35 GM TUBE 1 APPL TOPICAL (11:32)
[2024-12-02 14:02] LABS: Hemoglobin 11.3 g/dl (14.0-18.0); NRBC Abs Auto 0.000 X10*3/uL (0.0-0.012); NRBC Pct Auto 0.0 /100WBC (0.0-0.2)
[2024-12-02 14:04] LABS: Hematocrit 33.6 % (42.0-52.0); Imm Gran Abs Auto 0.04 X10*3/uL (0.00-0.03); Imm Gran Pct Auto 0.6 % (0.0-0.4); Lymphocytes Absolute Auto 1.5 X10*3/uL (1.2-4.9); Mean Corpuscular HGB Conc 33.6 g/dl (31.0-36.0); Mean Corpuscular Hemoglobin 31.7 pg (27.0-33.0); Mean Corpuscular Volume 94.1 fL (80.0-98.0); Red Blood Count 3.57 X10*6/uL (4.60-5.80)
[2024-12-02 14:05] LABS: Platelet Count 236 X10*3/uL (160-400); White Blood Count 7.0 X10*3/uL (4.8-10.8)
[2024-12-02 14:22] LABS: Alanine Aminotransferase 34 U/L (0-40); Albumin Level 2.8 g/dL (3.5-5.0); Alkaline Phosphatase 100 U/L (39-117); Anion Gap 10 (12-20); Aspartate Amino Transferase 36 U/L (5-37); Blood Urea Nitrogen 11 mg/dL (9-16); Calcium 8.0 mg/dL (8.4-10.2); Carbon Dioxide 24 mmol/L (22-29); Chloride 111 mmol/L (96-108); Cholesterol 93 mg/dL (<200); Creatinine Clr Calc Pharmacy 66.1; Estimated Glomerular Filt Rate > 60; HDL Cholesterol 27 mg/dL (>40); Magnesium 1.9 mg/dL (1.6-2.6); Potassium 4.0 mmol/L (3.3-5.1); Sodium 141 mmol/L (135-145); Total Protein 6.5 g/dL (6.5-8.0); Triglycerides 69 mg/dL (<150)
[2024-12-02 14:39] LABS: Thyroid Stimulating Hormone 2.26 uIU/mL (0.32-4.0)
[2024-12-02 14:51] LABS: Folate 6.6 ng/mL (> or = 4.0); Vitamin B12 417 pg/mL (200-900)
[2024-12-02 15:18] LABS: Calcium, Ionized 5.2 mg/dL (4.7-5.5)
--- NOTE | 2024-12-02 15:28 | HO.WOUND ---
Addendum entered by Anna Reeder RN 12/05/24 15:15: 12/05/24 @ 1500 79yr old male admitted to [facility] unit on 12/01/24 see H&P for detailed history. Arrival to bedside patient was mildly agreeable to assessment. He did not open his eyes or move his arms but he was agreeable to allowing me to peel back and assess foam dressing. Foam dressing and xeroform in place - no new topical recommendations. Continue to treat skin tears with moist wound healing principles. Skin Tears - Cleanse with normal saline, pat dry. ?Apply Xeroform secure with gauze and tape or foam dressings. Change Daily. ?Limit Adhesive application to skin - when necessary, apply skin prep prior.? Original Note: Wound consult placed for skin tears to hands and scabs to all extremities. Attempted to discuss with direct care team unable to connect - topical recommendations can follow protocol orders for skin tears at this time. Will attempt to assess at future date and time. 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 Skin Tears - Cleanse with normal saline, pat dry. ?Apply Xeroform secure with gauze and tape or foam dressings. Change Daily. ?Limit Adhesive application to skin - when necessary, apply skin prep prior.?
--- NOTE | 2024-12-02 15:40 | PC.NURSE ---
Pt nd his 1:1 were on the porch. He began to walk without the walker and she told him that he needs it in order to be safe. He then threw the walker and caused himself to get a skin tear on the top of right hand. Pt was brought to bed to rest. He refused wound care. He was also very sarcastic.
[2024-12-02 20:00] VITALS: BP 88/60; PULSE 93; RESP 16; TEMP 36.3; O2SAT 96
[2024-12-03 08:00] VITALS: BP 90/63; PULSE 79; RESP 16; TEMP 2.7; TEMP 37; O2SAT 96
[2024-12-03] MEDS: Hydrocortisone 1 % Ointment 28.35 GM TUBE 1 APPL TOPICAL (10:01)
--- NOTE | 2024-12-03 11:34 | HO.PSYCHPN ---
Subjective Subjective Date of Service: 12/03/24 Reason For Visit: agitation Interim History: Met with patient; discussed with team Patient complaining of suprabpubic pain, urgency; he was tugging on catheter. However this fully resolved on its own and patient denied any other problems. Irais amado, UA from 11/30 no growth; credit underwriter contacted hospitalist who did not think any intervention was necessary Patient calm on approach making some odd Rhymes saying who do want me to be do want me to be Eren Mental Status Exam Mental Status Exam Narrative: Appearance: wearing hospital gown, fair hygiene, in NAD Behavior: calm Psychomotor: no agitation or retardation noted Speech: mostly clear, normal rate/rhythm/volume, spontaneous TP: mostly linear TC: about catheter Mood: alright Affect: congruent SI: denies HI: denies VH/AH: no overt signs but per he has on and off Delusions: no delusional content reported Insight/judgment: impaired x 2. Memory/cog: alert, knows he is in a hospital, not exactly which one but this seems to fluctuate, not oriented to month nor year. severe inability to retain new information and remember events leading to this admission. Diagnostics Vital Signs (24Hr): Vital Signs - 24 hr 12/02/24 20:00 Temperature 97.4 F Pulse Rate 93 Respiratory Rate 16 Blood Pressure 88/60 L Pulse Oximetry 96 Oxygen Delivery Method Room Air BMI result Body Mass Index 20.2 Labs 12/15/24 12:59 12/15/24 12:59 Labs: Laboratory Results - last 48 hr 12/01/24 12/01/24 12/02/24 12:01 14:03 13:49 WBC 7.0 RBC 3.57 L Hgb 11.3 L Hct 33.6 L MCV 94.1 MCH 31.7 MCHC 33.6 RDW 13.3 Plt Count 236 D MPV 10.3 Immature Gran % (Auto) 0.6 H Neut % (Auto) 63.9 Lymph % (Auto) 21.2 Rowan % (Auto) 5.6 Eos % (Auto) 8.3 H Baso % (Auto) 0.4 Lymph # (Auto) 1.5 Rowan # (Auto) 0.4 Eos # (Auto) 0.6 H Baso # (Auto) 0.0 Abs Immat Gran (auto) 0.04 H Absolute Neuts (auto) 4.4 Absolute Nucleated RBC 0.000 Nucleated RBC % (auto) 0.0 Sodium 141 Potassium 4.0 Chloride 111 H Carbon Dioxide 24 Anion Gap 10 L BUN 11 Creatinine 0.87 Estim Creat Clear Calc 66.1 Estimated GFR > 60 Random Glucose 94 Estimat Average Glucose 105 Hemoglobin A1c % 5.3 Calcium 8.0 L Ionized Calcium 5.2 Magnesium 1.9 Total Bilirubin 0.6 AST 36 ALT 34 Alkaline Phosphatase 100 Total Protein 6.5 Albumin 2.8 L Triglycerides 69 Cholesterol 93 LDL Cholesterol, Calc 53 HDL Cholesterol 27 L Vitamin B12 417 Folate 6.6 TSH 2.26 PTH Intact 52.5 Imaging Radiology Impressions: ITS Impressions Clavicle X-Ray 11/30/24 08:08 IMPRESSION: Inferiorly displaced fracture distal right clavicle, probable old. Degenerative changes, right shoulder. Consider calcific tendinosis/tendinopathy, supraspinatus. Electronically signed by: Raghav Porras MD 11/30/2024 09:28 AM EDT Medications Medications Current Medications Acetaminophen (Acetaminophen 325 Mg Tablet) 650 mg PO Q6H PRN PRN Reason: Headache/Pain, Scale 1-10 Last Admin: 12/03/24 09:56 Dose: 650 mg Al Hydroxide/Mg Hydroxide (Magnesium Hydrox/Alum Hydrox 30 Ml Oral.Susp) 30 ml PO Q6H PRN PRN Reason: Heartburn/Nausea Atorvastatin Calcium (Atorvastatin Calcium 80 Mg Tablet) 80 mg PO DAILY [facility] Last Admin: 12/03/24 09:58 Dose: 80 mg Bisacodyl (Bisacodyl 10 Mg Supp.Rect) 10 mg [place] DAILY PRN PRN Reason: Constipation Cefuroxime Axetil (Cefuroxime Axetil 250 Mg Tablet) 250 mg PO BID [facility] Last Admin: 12/03/24 09:58 Dose: 250 mg Finasteride (Finasteride 5 Mg Tablet) 5 mg PO DAILY [facility] Last Admin: 12/03/24 09:57 Dose: 5 mg Hydrocortisone (Hydrocortisone 1 % Ointment 28.35 Gm Tube) 1 appl TOPICAL BID [facility]; Protocol Last Admin: 12/03/24 10:01 Dose: 1 appl Magnesium Hydroxide (Milk Of Magnesia 30 Ml Oral.Susp) 30 ml PO DAILY PRN PRN Reason: Constipation Melatonin (Melatonin 3 Mg Tablet) 6 mg PO BEDTIME [facility] Last Admin: 12/02/24 20:51 Dose: 6 mg Midodrine (Midodrine Hcl 10 Mg Tablet) 10 mg PO TIDWM [facility] Last Admin: 12/03/24 09:57 Dose: 10 mg Mirtazapine (Mirtazapine 7.5 Mg Tablet) 7.5 mg PO BEDTIME [facility] Last Admin: 12/02/24 20:51 Dose: 7.5 mg Omeprazole (Omeprazole 20 Mg Capsule.) 20 mg PO DAILY@0630 [facility] Last Admin: 12/03/24 05:37 Dose: 20 mg Quetiapine Fumarate (Quetiapine Fumarate 25 Mg Tablet) 25 mg PO DAILY@1700 [facility] Last Admin: 12/02/24 17:03 Dose: Not Given Quetiapine Fumarate (Quetiapine Fumarate 25 Mg Tablet) 25 mg PO BID PRN PRN Reason: agitation Last Admin: 12/03/24 09:58 Dose: 25 mg Senna (Sennosides 8.6 Mg Tablet) 8.6 mg PO Q12H PRN PRN Reason: Constipation Sodium Biphosphate/Sodium Phosphate (Sodium Phosphate,[place]-Dibasic 133 Ml Enema) 118 ml [place] DAILY PRN PRN Reason: Constipation Tamsulosin HCl (Tamsulosin Hcl 0.4 Mg Capsule) 0.4 mg PO DAILY [facility] Last Admin: 12/03/24 09:58 Dose: 0.4 mg Trazodone HCl (Trazodone Hcl 50 Mg Tablet) 50 mg PO BEDTIME PRN PRN Reason: Insomnia Trazodone HCl (Trazodone Hcl 50 Mg Tablet) 50 mg PO BEDTIME PRN PRN Reason: Insomnia Allergies Allergies Allergy/AdvReac Type Severity Reaction Status Date / Time No Known Allergies Allergy Verified 11/30/24 02:25 Assessment & Plan Assessment & Plan (1) Aggressive behavior due to dementia: Status: Acute Code(s): F03.918 - Unspecified dementia, unspecified severity, with other behavioral disturbance Plan Increased unsafe behaviors related to dementia, fell at new facility. Worsening depression and anxiety symptoms, negative thoughts with passive SI and AVH. He is not appropriate to return to SNF or rehab unless he is psychiatric mentally stable. Therefore, he meets criteria for psychiatric admission to monitor his safety, medication management, and refer paitent tp OP psychiatric services for aftercare. Once he is stable, will refer him back to rehab/SNF as appropriate. 12/03 earlier patient complained of urethral and bladder pain/suprapubic and patient was agitated; however this resolved on its own and patient denied any pain. Seroquel p.r.n. helped., UA from 11/30 no growth; credit underwriter contacted hospitalist who did not think any intervention was necessary Plan: Care team informed that patient is on bed search. She is happy about the news but worry about insurance coverage and if rehab will save the bed for her . Per record, patient was given Seroquel 25mg at 1700 daily. Will restart with 25mg BID PRN for severe agitation. Trazodone 50mg at HS PRN for insomnia. Case discuss with care team and on duty provider Dr Mckoy regarding psychiatric admission plan. Patient educated on: diagnosis, medication risk/benefits and medical condition Informed Consent: understands, does not understand and further education needed Reason for continued inpatient stay Substantial Risk for: inability to function Time Spent With Patient Time: Total time managing care of this patient today ____ minutes.
[2024-12-03 13:05] VITALS: BP 92/58
[2024-12-03 20:00] VITALS: BP 85/60; PULSE 86; RESP 16; TEMP 36.3; O2SAT 96
--- NOTE | 2024-12-03 21:07 | PM.EVENT ---
Event Note Date of Service: 12/03/24 Event Note: Pt seen per request for ? suprapubic pain. Pt was seen earlier by a day provider for this issue and pt's was having discomfort related to malpoistioned external catheter resulting in kinking of the catheter which can cause discomfort. UA cancerlled. Pt seen adn exam very reassuring as there is no redness, swelling or drainage from the urethra and the kelly bag is patent draining clear yellow urine. Pt baseline confused but pleasant. 1:[address] Updated nursing staff on POC. Time Spent With Patient Time: Total time managing care of this patient today ____ minutes.
[2024-12-04] MEDS: Hydrocortisone 1 % Ointment 28.35 GM TUBE 1 APPL TOPICAL (12:10)
[2024-12-04 17:00] VITALS: BP 92/58; PULSE 67; RESP 16; TEMP 36.1; O2SAT 96
--- NOTE | 2024-12-04 17:14 | HO.PSYCHPN ---
Subjective Subjective Date of Service: 12/04/24 Reason For Visit: agitation Interim History: Met with patient; discussed with team again patient getting agitated; added risperidone 0.5 mg b.i.d. to help with behavioral issues. Later patient self removed Cruz catheter which seemed to help resolve agitation Mental Status Exam Mental Status Exam Narrative: Appearance: wearing hospital gown, fair hygiene, in NAD Behavior: Intermittently agitated Psychomotor: Intermittently agitated Speech: mostly clear, normal rate/rhythm/volume, spontaneous TP: mostly linear TC: Mood: alright Affect: congruent SI: denies HI: denies VH/AH: no overt signs but per he has on and off Delusions: no delusional content reported Insight/judgment: impaired x 2. Memory/cog: alert, knows he is in a hospital, not exactly which one but this seems to fluctuate, not oriented to month nor year. severe inability to retain new information and remember events leading to this admission. Diagnostics Vital Signs (24Hr): Vital Signs - 24 hr 12/03/24 20:00 Temperature 97.3 F Pulse Rate 86 Respiratory Rate 16 Blood Pressure 85/60 L Pulse Oximetry 96 Oxygen Delivery Method Room Air BMI result Body Mass Index 20.2 Labs 12/15/24 12:59 12/15/24 12:59 Imaging Radiology Impressions: ITS Impressions Clavicle X-Ray 11/30/24 08:08 IMPRESSION: Inferiorly displaced fracture distal right clavicle, probable old. Degenerative changes, right shoulder. Consider calcific tendinosis/tendinopathy, supraspinatus. Electronically signed by: Raghav Porras MD 11/30/2024 09:28 AM EDT Medications Medications Current Medications Acetaminophen (Acetaminophen 325 Mg Tablet) 650 mg PO Q6H PRN PRN Reason: Headache/Pain, Scale 1-10 Last Admin: 12/03/24 22:47 Dose: 650 mg Al Hydroxide/Mg Hydroxide (Magnesium Hydrox/Alum Hydrox 30 Ml Oral.Susp) 30 ml PO Q6H PRN PRN Reason: Heartburn/Nausea Atorvastatin Calcium (Atorvastatin Calcium 80 Mg Tablet) 80 mg PO DAILY [facility] Last Admin: 12/04/24 12:07 Dose: 80 mg Bisacodyl (Bisacodyl 10 Mg Supp.Rect) 10 mg [place] DAILY PRN PRN Reason: Constipation Cefuroxime Axetil (Cefuroxime Axetil 250 Mg Tablet) 250 mg PO BID [facility] Last Admin: 12/04/24 12:07 Dose: 250 mg Finasteride (Finasteride 5 Mg Tablet) 5 mg PO DAILY [facility] Last Admin: 12/04/24 12:07 Dose: 5 mg Hydrocortisone (Hydrocortisone 1 % Ointment 28.35 Gm Tube) 1 appl TOPICAL BID [facility]; Protocol Last Admin: 12/04/24 12:10 Dose: 1 appl Magnesium Hydroxide (Milk Of Magnesia 30 Ml Oral.Susp) 30 ml PO DAILY PRN PRN Reason: Constipation Melatonin (Melatonin 3 Mg Tablet) 6 mg PO BEDTIME [facility] Last Admin: 12/03/24 21:09 Dose: 6 mg Midodrine (Midodrine Hcl 10 Mg Tablet) 10 mg PO TIDWM [facility] Last Admin: 12/04/24 13:19 Dose: Not Given Mirtazapine (Mirtazapine 7.5 Mg Tablet) 7.5 mg PO BEDTIME [facility] Last Admin: 12/03/24 21:09 Dose: 7.5 mg Omeprazole (Omeprazole 20 Mg Capsule.Dr) 20 mg PO DAILY@0630 [facility] Last Admin: 12/04/24 06:29 Dose: Not Given Quetiapine Fumarate (Quetiapine Fumarate 25 Mg Tablet) 25 mg PO DAILY@1700 [facility] Last Admin: 12/03/24 16:47 Dose: 25 mg Quetiapine Fumarate (Quetiapine Fumarate 25 Mg Tablet) 25 mg PO BID PRN PRN Reason: agitation Last Admin: 12/04/24 12:06 Dose: 25 mg Risperidone (Risperidone 0.5 Mg Tablet) 0.5 mg PO TID [facility] Last Admin: 12/04/24 14:18 Dose: 0.5 mg Senna (Sennosides 8.6 Mg Tablet) 8.6 mg PO Q12H PRN PRN Reason: Constipation Sodium Biphosphate/Sodium Phosphate (Sodium Phosphate,[place]-Dibasic 133 Ml Enema) 118 ml [place] DAILY PRN PRN Reason: Constipation Tamsulosin HCl (Tamsulosin Hcl 0.4 Mg Capsule) 0.4 mg PO DAILY [facility] Last Admin: 12/04/24 12:06 Dose: 0.4 mg Trazodone HCl (Trazodone Hcl 50 Mg Tablet) 50 mg PO BEDTIME PRN PRN Reason: Insomnia Last Admin: 12/03/24 22:47 Dose: 50 mg Trazodone HCl (Trazodone Hcl 50 Mg Tablet) 50 mg PO BEDTIME PRN PRN Reason: Insomnia Allergies Allergies Allergy/AdvReac Type Severity Reaction Status Date / Time No Known Allergies Allergy Verified 11/30/24 02:25 Assessment & Plan Assessment & Plan (1) Aggressive behavior due to dementia: Status: Acute Code(s): F03.918 - Unspecified dementia, unspecified severity, with other behavioral disturbance Plan Increased unsafe behaviors related to dementia, fell at new facility. Worsening depression and anxiety symptoms, negative thoughts with passive SI and AVH. He is not appropriate to return to SNF or rehab unless he is psychiatric mentally stable. Therefore, he meets criteria for psychiatric admission to monitor his safety, medication management, and refer paitent tp OP psychiatric services for aftercare. Once he is stable, will refer him back to rehab/SNF as appropriate. 12/03 earlier patient complained of urethral and bladder pain/suprapubic and patient was agitated; however this resolved on its own and patient denied any pain 12/04 again patient getting agitated; added risperidone 0.5 mg b.i.d. to help with behavioral issues. Later patient self removed Cruz catheter which seemed to help resolve agitation Plan: Care team informed that patient is on bed search. She is happy about the news but worry about insurance coverage and if rehab will save the bed for her . Per record, patient was given Seroquel 25mg at 1700 daily. Will restart with 25mg BID PRN for severe agitation. Trazodone 50mg at HS PRN for insomnia. Case discuss with care team and on duty provider Dr Mckoy regarding psychiatric admission plan. Patient educated on: diagnosis Informed Consent: does not understand Reason for continued inpatient stay Substantial Risk for: inability to function Time Spent With Patient Time: Total time managing care of this patient today ____ minutes.
[2024-12-04 20:00] VITALS: RESP 18
--- NOTE | 2024-12-05 06:46 | PC.NURSE ---
Eren has been getting up to void all shift, declined to have bladder scanned. This am he was agreeable to have bladder scanned, results 553ml, declined to have catheter placed to drain bladder. No! I don't want no tube. I was in pain for 24 hours the last time. Pain worse than I am having now. Informed him that the Doctor or day shift nurse may insert catheter, If I let him!. Pain / discomfort level reported as 6/10, declined analgesic as well. Continues on antibiotic for UTI but he has not taken in past 24 hours. Currently laying in bed, sitter at bedside in no acute appearing distress.
--- NOTE | 2024-12-05 07:47 | HO.PSYCHPN ---
Subjective Subjective Date of Service: 12/05/24 Reason For Visit: agitation Subjective Notes: Conditional Voluntary Interim History: Pt slept through the night. He is somewhat irritable. He has been taking medications as prescribed. No overt psychosis or delusional content but forgetful. He continues to be one to one due to risk for falls. Review of Systems Review of Systems No SOB. No breathing issues. No N/V. Denies pain. Yes all other systems are reviewed and are negative and Unobtainable due to mental status Mental Status Exam Mental Status Exam Narrative: Appearance: wearing hospital gown, fair hygiene, in NAD Behavior: calm Psychomotor: no agitation or retardation noted Speech: mostly clear, normal rate/rhythm/volume, spontaneous TP: mostly linear TC: feeling tired Mood: good Affect: congruent SI: denies HI: denies VH/AH: no overt signs but per he has on and off Delusions: no delusional content reported Insight/judgment: impaired x 2. Memory/cog: alert, knows he is in a hospital, not exactly which one but this seems to fluctuate, not oriented to month nor year. severe inability to retain new information and remember events leading to this admission. Diagnostics Vital Signs (24Hr): Vital Signs - 24 hr 12/04/24 17:00 12/04/24 20:00 Temperature 97 F Pulse Rate 67 Respiratory Rate 16 18 Blood Pressure 92/58 L Pulse Oximetry 96 Oxygen Delivery Method Room Air BMI result Body Mass Index 20.2 Labs 12/02/24 13:49 12/02/24 13:49 Imaging Radiology Impressions: ITS Impressions Clavicle X-Ray 11/30/24 08:08 IMPRESSION: Inferiorly displaced fracture distal right clavicle, probable old. Degenerative changes, right shoulder. Consider calcific tendinosis/tendinopathy, supraspinatus. Electronically signed by: Raghav Porras MD 11/30/2024 09:28 AM EDT Medications Medications Current Medications Acetaminophen (Acetaminophen 325 Mg Tablet) 650 mg PO Q6H PRN PRN Reason: Headache/Pain, Scale 1-10 Last Admin: 12/03/24 22:47 Dose: 650 mg Al Hydroxide/Mg Hydroxide (Magnesium Hydrox/Alum Hydrox 30 Ml Oral.Susp) 30 ml PO Q6H PRN PRN Reason: Heartburn/Nausea Atorvastatin Calcium (Atorvastatin Calcium 80 Mg Tablet) 80 mg PO DAILY [facility] Last Admin: 12/04/24 12:07 Dose: 80 mg Bisacodyl (Bisacodyl 10 Mg Supp.Rect) 10 mg IN DAILY PRN PRN Reason: Constipation Cefuroxime Axetil (Cefuroxime Axetil 250 Mg Tablet) 250 mg PO BID [facility] Last Admin: 12/04/24 21:21 Dose: Not Given Finasteride (Finasteride 5 Mg Tablet) 5 mg PO DAILY [facility] Last Admin: 12/04/24 12:07 Dose: 5 mg Hydrocortisone (Hydrocortisone 1 % Ointment 28.35 Gm Tube) 1 appl TOPICAL BID [facility]; Protocol Last Admin: 12/04/24 21:21 Dose: Not Given Magnesium Hydroxide (Milk Of Magnesia 30 Ml Oral.Susp) 30 ml PO DAILY PRN PRN Reason: Constipation Melatonin (Melatonin 3 Mg Tablet) 6 mg PO BEDTIME [facility] Last Admin: 12/04/24 21:21 Dose: Not Given Midodrine (Midodrine Hcl 10 Mg Tablet) 10 mg PO TIDWM [facility] Last Admin: 12/04/24 17:10 Dose: 10 mg Mirtazapine (Mirtazapine 7.5 Mg Tablet) 7.5 mg PO BEDTIME [facility] Last Admin: 12/04/24 21:21 Dose: Not Given Omeprazole (Omeprazole 20 Mg Capsule.Dr) 20 mg PO DAILY@0630 [facility] Last Admin: 12/05/24 06:14 Dose: Not Given Quetiapine Fumarate (Quetiapine Fumarate 25 Mg Tablet) 25 mg PO DAILY@1700 [facility] Last Admin: 12/04/24 17:10 Dose: 25 mg Quetiapine Fumarate (Quetiapine Fumarate 25 Mg Tablet) 25 mg PO BID PRN PRN Reason: agitation Last Admin: 12/04/24 12:06 Dose: 25 mg Risperidone (Risperidone 0.5 Mg Tablet) 0.5 mg PO TID [facility] Last Admin: 12/04/24 21:21 Dose: Not Given Senna (Sennosides 8.6 Mg Tablet) 8.6 mg PO Q12H PRN PRN Reason: Constipation Sodium Biphosphate/Sodium Phosphate (Sodium Phosphate,[place]-Dibasic 133 Ml Enema) 118 ml IN DAILY PRN PRN Reason: Constipation Tamsulosin HCl (Tamsulosin Hcl 0.4 Mg Capsule) 0.4 mg PO DAILY [facility] Last Admin: 12/04/24 12:06 Dose: 0.4 mg Trazodone HCl (Trazodone Hcl 50 Mg Tablet) 50 mg PO BEDTIME PRN PRN Reason: Insomnia Last Admin: 12/03/24 22:47 Dose: 50 mg Trazodone HCl (Trazodone Hcl 50 Mg Tablet) 50 mg PO BEDTIME PRN PRN Reason: Insomnia Allergies Allergies Allergy/AdvReac Type Severity Reaction Status Date / Time No Known Allergies Allergy Verified 11/30/24 02:25 Assessment & Plan Assessment & Plan (1) Major neurocognitive disorder due to multiple etiologies, with psychotic disturbance: Status: Acute Code(s): F02.82 - Dementia in other diseases classified elsewhere, unspecified severity, with psychotic disturbance (2) Lewy body dementia with psychotic disturbance: Status: Acute Code(s): G31.83 - Neurocognitive disorder with Lewy bodies; F02.82 - Dementia in other diseases classified elsewhere, unspecified severity, with psychotic disturbance Plan Mr. Quintero is a 79 year-old male with hx of Dementia, it does appear to be of Lewy Body with periods of visual hallucinations, autonomic dysfunction, some degree of fluctuation in terms of orientation. HCP has been invoked, he is CV by HCP. Will continue seroquel for now and assess efficacy. PLAN / d/c seroquel, continue only risperidone. continue to monitor hotn, on midodrine. Reason for continued inpatient stay Substantial Risk for: inability to function Time Spent With Patient Time: Total time managing care of this patient today ____ minutes.
[2024-12-05 08:00] VITALS: BP 97/54; PULSE 95; RESP 18; TEMP 36.6; O2SAT 99
[2024-12-05 09:24] VITALS: BP 97/54
[2024-12-05] MEDS: Hydrocortisone 1 % Ointment 28.35 GM TUBE 1 APPL TOPICAL ×2 (09:26→21:14)
[2024-12-05 13:24] VITALS: BP 118/59
[2024-12-05 13:25] LABS: Vitamin D 25-OH, D2 <4 ng/mL; Vitamin D 25-OH, D3 18 ng/mL; Vitamin D 25-OH, Total 18 ng/mL (30-100)
[2024-12-05 17:32] VITALS: BP 87/56
[2024-12-05 18:11] LABS: Appearance Urine Clear; Glucose Urine UA Negative (Negative); PH 6.5 (5.0-9.0); Specific Gravity - Urine 1.015 (1.005-1.025); UMIC TRIGGER UA YES
[2024-12-05 20:00] VITALS: RESP 16
[2024-12-06 08:06] VITALS: BP 81/49; PULSE 83; TEMP 36.2; O2SAT 98
[2024-12-06] MEDS: Hydrocortisone 1 % Ointment 28.35 GM TUBE 1 APPL TOPICAL (09:47)
[2024-12-06 12:22] VITALS: BP 96/52
[2024-12-06] MEDS: clonazePAM ODT 0.125 MG TAB.RAPDIS PO ×2 (15:10→21:14)
[2024-12-06 17:07] VITALS: BP 93/67
--- NOTE | 2024-12-06 18:14 | HO.PSYCHPN ---
Subjective Subjective Date of Service: 12/06/24 Reason For Visit: agitation Subjective Notes: Conditional Voluntary Healthcare Proxy: Yes Interim History: He was hitting his head against the wall this morning, when asked he stated it was joking, I'm just mad at my . He then laugh and stated I've been mad at her for the past 47 years! He complains about the food here and not getting it on time. He also reports he is tired of being in a wheelchair. explained that he is high risk for falls. He is taking medications as prescribed. He does have somewhat or irritable edge, and his rationale seems impaired. continues to present with hotn despite taking midodrine. Review of Systems Review of Systems He denies any SOB or chest pain. Reports left upper arm pain. Yes all other systems are reviewed and are negative and Unobtainable due to mental status Mental Status Exam Mental Status Exam Narrative: Appearance: wearing hospital gown, fair hygiene, in NAD Behavior: calm Psychomotor: no agitation or retardation noted Speech: mostly clear, normal rate/rhythm/volume, spontaneous TP: mostly linear TC: feeling tired Mood: good Affect: congruent SI: denies HI: denies VH/AH: no overt signs but per he has on and off Delusions: no delusional content reported Insight/judgment: impaired x 2. Memory/cog: alert, knows he is in a hospital, not exactly which one but this seems to fluctuate, not oriented to month nor year. severe inability to retain new information and remember events leading to this admission. Diagnostics Vital Signs (24Hr): Vital Signs - 24 hr 12/05/24 20:00 12/06/24 08:06 12/06/24 12:22 Temperature 97.1 F Pulse Rate 83 Respiratory Rate 16 Blood Pressure 81/49 L 96/52 L Pulse Oximetry 98 Oxygen Delivery Method Room Air 12/06/24 17:07 Temperature Pulse Rate Respiratory Rate Blood Pressure 93/67 Pulse Oximetry Oxygen Delivery Method BMI result Body Mass Index 20.2 Labs 12/02/24 13:49 12/02/24 13:49 Labs: Laboratory Results - last 48 hr 12/01/24 12/05/24 12:01 18:00 25-OH Vitamin D Total 18 L 25-Hydroxy Vitamin D2 <4 25-Hydroxy Vitamin D3 18 Urine Color Yellow Urine Appearance Clear Urine pH 6.5 Ur Specific [place] 1.015 Urine Protein 30 (1+) H Urine Glucose (UA) Negative Urine Ketones Negative Urine Blood Moderate (2+) H Urine Nitrite Negative Ur Leukocyte Esterase Moderate (2+) H Urine RBC >20 H Urine WBC >50 H Ur Squamous Epith Cells 0-2 Urine Bacteria None Seen Hyaline Casts 0-2 Imaging Radiology Impressions: ITS Impressions Clavicle X-Ray 11/30/24 08:08 IMPRESSION: Inferiorly displaced fracture distal right clavicle, probable old. Degenerative changes, right shoulder. Consider calcific tendinosis/tendinopathy, supraspinatus. Electronically signed by: Raghav Porras MD 11/30/2024 09:28 AM EDT RP Head CT 12/06/24 10:46 IMPRESSION: Continued evolution of a right frontoparietal subdural hematoma measuring up to 6 mm in thickness with mild mass effect. No intracranial hemorrhage or other acute intracranial abnormality. Electronically signed by: Miguel Ness MD 12/06/2024 11:23 AM EDT RP Medications Medications Current Medications Acetaminophen (Acetaminophen 325 Mg Tablet) 650 mg PO Q6H PRN PRN Reason: Headache/Pain, Scale 1-10 Last Admin: 12/03/24 22:47 Dose: 650 mg Al Hydroxide/Mg Hydroxide (Magnesium Hydrox/Alum Hydrox 30 Ml Oral.Susp) 30 ml PO Q6H PRN PRN Reason: Heartburn/Nausea Atorvastatin Calcium (Atorvastatin Calcium 80 Mg Tablet) 80 mg PO DAILY [facility] Last Admin: 12/06/24 09:07 Dose: 80 mg Bisacodyl (Bisacodyl 10 Mg Supp.Rect) 10 mg [place] DAILY PRN PRN Reason: Constipation Cefuroxime Axetil (Cefuroxime Axetil 250 Mg Tablet) 250 mg PO BID [facility] Last Admin: 12/06/24 09:07 Dose: 250 mg Clonazepam (Clonazepam Odt 0.125 Mg Tab.Rapdis) 0.125 mg PO TID [facility] Last Admin: 12/06/24 15:10 Dose: 0.125 mg Finasteride (Finasteride 5 Mg Tablet) 5 mg PO DAILY [facility] Last Admin: 12/06/24 09:19 Dose: 5 mg Hydrocortisone (Hydrocortisone 1 % Ointment 28.35 Gm Tube) 1 appl TOPICAL BID [facility]; Protocol Last Admin: 12/06/24 09:47 Dose: 1 appl Magnesium Hydroxide (Milk Of Magnesia 30 Ml Oral.Susp) 30 ml PO DAILY PRN PRN Reason: Constipation Melatonin (Melatonin 3 Mg Tablet) 6 mg PO BEDTIME [facility] Last Admin: 12/05/24 21:09 Dose: 6 mg Midodrine (Midodrine Hcl 10 Mg Tablet) 10 mg PO TIDWM [facility] Last Admin: 12/06/24 17:09 Dose: 10 mg Mirtazapine (Mirtazapine 15 Mg Tablet) 15 mg PO BEDTIME ENDY Omeprazole (Omeprazole 20 Mg Capsule.Dr) 20 mg PO DAILY@0630 [facility] Last Admin: 12/06/24 06:32 Dose: 20 mg Risperidone (Risperidone 0.5 Mg Tablet) 0.5 mg PO TID [facility] Last Admin: 12/06/24 15:10 Dose: 0.5 mg Senna (Sennosides 8.6 Mg Tablet) 8.6 mg PO Q12H PRN PRN Reason: Constipation Sodium Biphosphate/Sodium Phosphate (Sodium Phosphate,[place]-Dibasic 133 Ml Enema) 118 ml [place] DAILY PRN PRN Reason: Constipation Tamsulosin HCl (Tamsulosin Hcl 0.4 Mg Capsule) 0.4 mg PO DAILY [facility] Last Admin: 12/06/24 09:07 Dose: 0.4 mg Trazodone HCl (Trazodone Hcl 50 Mg Tablet) 50 mg PO BEDTIME PRN PRN Reason: Insomnia Allergies Allergies Allergy/AdvReac Type Severity Reaction Status Date / Time No Known Allergies Allergy Verified 11/30/24 02:25 Assessment & Plan Assessment & Plan (1) Major neurocognitive disorder due to multiple etiologies, with psychotic disturbance: Status: Acute Code(s): F02.82 - Dementia in other diseases classified elsewhere, unspecified severity, with psychotic disturbance (2) Lewy body dementia with psychotic disturbance: Status: Acute Code(s): G31.83 - Neurocognitive disorder with Lewy bodies; F02.82 - Dementia in other diseases classified elsewhere, unspecified severity, with psychotic disturbance Plan Mr. Quintero is a 79 year-old male with hx of Dementia, it does appear to be of Lewy Body with periods of visual hallucinations, autonomic dysfunction, some degree of fluctuation in terms of orientation. HCP has been invoked, he is CV by HCP. Will continue seroquel for now and assess efficacy. PLAN 12/05 d/c seroquel, continue only risperidone. continue to monitor hotn, on midodrine. 12/06 hit head, ordered head CT no new intracraneal bleed. subdural hematoma noted again. continue bladder scans q6h straigh cath if [id number]>[id number] Reason for continued inpatient stay Substantial Risk for: inability to function Time Spent With Patient Time: Total time managing care of this patient today ____ minutes.
--- NOTE | 2024-12-06 19:01 | PC.NURSE ---
Bladder scan - [address] cath done- 975 drained. Patient tolerated well.
[2024-12-06 20:00] VITALS: BP 92/60; PULSE 93; RESP 16; TEMP 36.4; O2SAT 97
--- NOTE | 2024-12-07 02:24 | PC.NURSE ---
Eren grace a witnessed fall in the bathroom in [id number]
--- NOTE | 2024-12-07 02:25 | PC.NURSE ---
Eren was reported by staff to have fallen @ 0215 while in the bathroom in room 181. Staff reported he lost his balance which was confirmed by Eren, falling on buttocks , hitting right elbow, assessment notes FROM all extremities, no additional skin injuries, no changes in mentation, no changes in gait or weight bearing ability. Re-educated Eren that he requires staff assistance until his condition/strength improves. He has been aggressive to staff and threatening, stated Do what you want. I just want to get out of here. Certified Ophthalmic Assistant notified, hospitalist notified and assessed patient @ 0230, new order for right elbow xray. VS: BP 104/60;P 88; R16; T 97.4; POX 94% AA, Assisted back to bed, contact guard without problems.
--- NOTE | 2024-12-07 03:07 | PM.EVENT ---
Event Note Date of Service: 12/07/24 Event Note: Alerted by nursing staff the patient had a witnessed fall. He has had nocturia and has been going back and forth to the restroom all night. The patient reports that he slipped on something in the bathroom and fell hitting his right elbow. He denies head strike or loss of consciousness and nursing staff agrees. Patient complains of right elbow pain now. No numbness or tingling. Motor intact however uncomfortable to street and elbow. No obvious bleeding, patient has wounds on arm which are chronic. no CP, nausea, vomiting, or SOB. ROM R elbow intact, radial pulses intact and equal bilaterally 2+, sensation and motor intact. no obvious bruising at this time. neurologically intact. A+Ox3. Xray R elbow ordered to assess for fx. ice, tylenol, rest. will follow xray results, sign off if normal. Time Spent With Patient Time: Total time managing care of this patient today ____ minutes.
[2024-12-07 03:12] VITALS: BP 104/60; PULSE 88; RESP 16; TEMP 36.3
[2024-12-07 08:00] VITALS: BP 83/56; PULSE 99; RESP 16; TEMP 36.4; O2SAT 98
--- NOTE | 2024-12-07 09:35 | HO.PM.IMPN ---
Subjective Subjective Date of Service: 12/07/24 Interval History: Patient had a witnessed fall. The patient reports that he slipped on something in the bathroom and fell hitting his right elbow. He denies head strike or loss of consciousness and nursing staff agrees. Patient complains of right elbow pain now. No numbness or tingling. Motor intact however uncomfortable to street and elbow. No obvious bleeding, patient has wounds on arm which are chronic. no CP, nausea, vomiting, or SOB. ROM R elbow intact, radial pulses intact and equal bilaterally 2+, sensation and motor intact. no obvious bruising at this time. neurologically intact. A+Ox3. Xray R elbow ordered to assess for fx. ice, tylenol, rest. Physical Exam Vital Signs: Vital Signs: Last Vital Signs Temp 97.4 F 12/07/24 03:12 Pulse 88 12/07/24 03:12 Resp 16 12/07/24 03:12 BP 104/60 12/07/24 03:12 Pulse Ox 97 12/06/24 20:00 O2 Del Method Room Air 12/06/24 20:00 BMI result Body Mass Index 20.2 Objective Data Active Medications Acetaminophen (Acetaminophen 325 Mg Tablet) 650 mg PO Q6H PRN PRN Reason: Headache/Pain, Scale 1-10 Last Admin: 12/03/24 22:47 Dose: 650 mg Al Hydroxide/Mg Hydroxide (Magnesium Hydrox/Alum Hydrox 30 Ml Oral.Susp) 30 ml PO Q6H PRN PRN Reason: Heartburn/Nausea Atorvastatin Calcium (Atorvastatin Calcium 80 Mg Tablet) 80 mg PO DAILY [facility] Last Admin: 12/06/24 09:07 Dose: 80 mg Documented By: MARIBELL Bisacodyl (Bisacodyl 10 Mg Supp.Rect) 10 mg IN DAILY PRN PRN Reason: Constipation Cefuroxime Axetil (Cefuroxime Axetil 250 Mg Tablet) 250 mg PO BID [facility] Last Admin: 12/06/24 21:13 Dose: 250 mg Documented By: DEMETRIUS Clonazepam (Clonazepam Odt 0.125 Mg Tab.Rapdis) 0.125 mg PO TID [facility] Last Admin: 12/06/24 21:14 Dose: 0.125 mg Documented By: DEMETRIUS Finasteride (Finasteride 5 Mg Tablet) 5 mg PO DAILY [facility] Last Admin: 12/06/24 09:19 Dose: 5 mg Documented By: MARIBELL Hydrocortisone (Hydrocortisone 1 % Ointment 28.35 Gm Tube) 1 appl TOPICAL BID [facility]; Protocol Last Admin: 12/06/24 21:16 Dose: Not Given Documented By: DEMETRIUS Non-Admin Reason: Patient Refused Magnesium Hydroxide (Milk Of Magnesia 30 Ml Oral.Susp) 30 ml PO DAILY PRN PRN Reason: Constipation Melatonin (Melatonin 3 Mg Tablet) 6 mg PO BEDTIME [facility] Last Admin: 12/06/24 21:14 Dose: 6 mg Documented By: DEMETRIUS Midodrine (Midodrine Hcl 10 Mg Tablet) 10 mg PO TIDWM [facility] Last Admin: 12/06/24 17:09 Dose: 10 mg Documented By: MAYUR Mirtazapine (Mirtazapine 15 Mg Tablet) 15 mg PO BEDTIME [facility] Last Admin: 12/06/24 21:14 Dose: 15 mg Documented By: DEMETRIUS Omeprazole (Omeprazole 20 Mg Capsule.) 20 mg PO DAILY@0630 [facility] Last Admin: 12/07/24 05:33 Dose: 20 mg Documented By: DEMETRIUS Risperidone (Risperidone 0.5 Mg Tablet) 0.5 mg PO TID [facility] Last Admin: 12/06/24 21:14 Dose: 0.5 mg Documented By: DEMETRIUS Senna (Sennosides 8.6 Mg Tablet) 8.6 mg PO Q12H PRN PRN Reason: Constipation Sodium Biphosphate/Sodium Phosphate (Sodium Phosphate,[place]-Dibasic 133 Ml Enema) 118 ml IN DAILY PRN PRN Reason: Constipation Tamsulosin HCl (Tamsulosin Hcl 0.4 Mg Capsule) 0.4 mg PO DAILY [facility] Last Admin: 12/06/24 09:07 Dose: 0.4 mg Documented By: MARIBELL Trazodone HCl (Trazodone Hcl 50 Mg Tablet) 50 mg PO BEDTIME PRN PRN Reason: Insomnia Labs 12/02/24 13:49 12/02/24 13:49 Assessment and Plan Plan 79-year-old male with a past medical history significant for vascular dementia, BPH and multiple recent falls, who presented to the ED after an unwitnessed fall earlier today. The patient has had multiple recent falls lately, head strike and loss of consciousness unknown. The patient was complaining of left shoulder pain on arrival however is no longer able to give any history, he is currently hallucinating. His is bedside and they refused transfer to a facility for Neurosurgery as he had a subdural hematoma recently and he does not wish to have another surgery. He has been increasingly aggressive at the nursing facility that he resides at and his reports that they have been trying to get him to a nursing facility specifically for patient with dementia and aggression. She reports that he has not been eating or drinking much. The patient is unable to provide any history at this time. hospital course: Patient was admitted for acute on chronic subdural hematoma. CT head showed stability on admission and on discharge. For sepsis due to Enterococcus faecalis urinary tract infection was initially treated with ceftriaxone after cultures were received transitioned to ampicillin and completed treatment. For acute kidney injury due to postrenal obstruction Cruz catheter was inserted and renal function returned to normal. Was seen by Urology who recommended keeping Cruz in place and continuing tamsulosin and adding Proscar will follow up with Urology as outpatient. Course complicated by hypernatremia which resolved with IV hypotonic fluids. For vascular dementia was continued on statin and mirtazapine. For dysphagia was seen by speech who recommended ndd2 solids and thin liquids. For hypotension is on midodrine. For BPH was continued on Flomax and Proscar. For GERD on PPI
[2024-12-07 09:46] VITALS: BP 83/56
[2024-12-07] MEDS: clonazePAM ODT 0.125 MG TAB.RAPDIS PO ×2 (09:46→14:47)
[2024-12-07] MEDS: Hydrocortisone 1 % Ointment 28.35 GM TUBE 1 APPL TOPICAL (09:50)
--- NOTE | 2024-12-07 10:44 | HO.PM.IMCN ---
History of Present Illness Data of Consult Service Date: 12/07/24 Primary Care Provider: Unknown Physician HPI Reason for consult: Medical management 79 year old male with PMH of acute on chronic subdural hematoma, BPH with urinary retention and vascular dementia who was admitted to [facility] after sustaining an unwitnessed fall at [place]. He was treated for acute on chronic subdural hematoma. CT head showed stability on admission and on discharge. Uroepsis due to Enterococcus faecalis, initially treated with ceftriaxone and transitioned to ampicillin. Treated for acute kidney injury due to postrenal obstruction Kelly catheter was inserted and renal function returned to normal. Was seen by Urology who recommended keeping Kelly in place and continuing tamsulosin and adding Proscar will follow up with Urology as outpatient. Course complicated by hypernatremia which resolved with IV hypotonic fluids. For vascular dementia was continued on statin and mirtazapine. For dysphagia was seen by speech who recommended ndd2 solids and thin liquids. For hypotension is on midodrine. For BPH was continued on Flomax and Proscar. For GERD on PPI. Patient was hospitalized from 11/21/2024 until 11/29/2024 and discharged to SNF and sustained an unwitnessed fall. While in the ED he was combative and aggressive and was evaluated by CARE team and found appropriate for admission to [facility] for mood stabilization. Patient sustained a fall overnight due to several trips to . Found to have urinary retention and kelly catheter was inserted. X-rays of bilateral elbow as well as left humerus were negative. Review of Systems Review of Systems: He denies any SOB or chest pain. Reports left upper arm pain. [facility] Medical History Subdural hematoma BPH (benign prostatic hyperplasia) Vascular dementia Social History Household Members: Other Housing: Alf Do you presently have visiting nurse or other home services: No Comment: One to one Patient Tobacco Use Status: Never used Tobacco Smoked in Last 30 Days: Yes e-Cigarette/Vaping Use: Never Used Use of substances other than those prescribed or required for medical reasons: No Currently Displaying Signs/Symptoms of Drug Intoxication Withdrawal: No Have you been hit, kicked, punched, or otherwise hurt by someone within the past year? If so, by whom?: No Do you feel safe in your current relationship?: Yes Is there a partner from a previous relationship who is making you feel unsafe now?: No Are you made to feel afraid or neglected: No Advance Directives: No Advance Directives Information Provided: Yes Advance Directives Date on File: 11/21/24 Do you have thoughts of harming others: None Do you have a plan to hurt others: No Plan Recently lost weight without trying: Unsure service: Yes Sexual orientation: Straight/Heterosexual Meds Allergies Allergy/AdvReac Type Severity Reaction Status Date / Time No Known Allergies Allergy Verified 11/30/24 02:25 Active Medications: Current Medications Acetaminophen (Acetaminophen 325 Mg Tablet) 650 mg PO Q6H PRN PRN Reason: Headache/Pain, Scale 1-10 Last Admin: 12/03/24 22:47 Dose: 650 mg Al Hydroxide/Mg Hydroxide (Magnesium Hydrox/Alum Hydrox 30 Ml Oral.Susp) 30 ml PO Q6H PRN PRN Reason: Heartburn/Nausea Atorvastatin Calcium (Atorvastatin Calcium 80 Mg Tablet) 80 mg PO DAILY [facility] Last Admin: 12/07/24 09:47 Dose: 80 mg Bisacodyl (Bisacodyl 10 Mg Supp.Rect) 10 mg [place] DAILY PRN PRN Reason: Constipation Cefuroxime Axetil (Cefuroxime Axetil 250 Mg Tablet) 250 mg PO BID [facility] Last Admin: 12/07/24 09:47 Dose: 250 mg Clonazepam (Clonazepam Odt 0.125 Mg Tab.Rapdis) 0.125 mg PO TID [facility] Last Admin: 12/07/24 09:46 Dose: 0.125 mg Finasteride (Finasteride 5 Mg Tablet) 5 mg PO DAILY [facility] Last Admin: 12/07/24 09:47 Dose: 5 mg Hydrocortisone (Hydrocortisone 1 % Ointment 28.35 Gm Tube) 1 appl TOPICAL BID [facility]; Protocol Last Admin: 12/07/24 09:50 Dose: 1 appl Magnesium Hydroxide (Milk Of Magnesia 30 Ml Oral.Susp) 30 ml PO DAILY PRN PRN Reason: Constipation Melatonin (Melatonin 3 Mg Tablet) 6 mg PO BEDTIME [facility] Last Admin: 12/06/24 21:14 Dose: 6 mg Midodrine (Midodrine Hcl 10 Mg Tablet) 10 mg PO TIDWM [facility] Last Admin: 12/07/24 09:46 Dose: 10 mg Mirtazapine (Mirtazapine 15 Mg Tablet) 15 mg PO BEDTIME [facility] Last Admin: 12/06/24 21:14 Dose: 15 mg Omeprazole (Omeprazole 20 Mg Capsule.Dr) 20 mg PO DAILY@0630 [facility] Last Admin: 12/07/24 05:33 Dose: 20 mg Risperidone (Risperidone 0.5 Mg Tablet) 0.5 mg PO TID [facility] Last Admin: 12/07/24 09:46 Dose: 0.5 mg Senna (Sennosides 8.6 Mg Tablet) 8.6 mg PO Q12H PRN PRN Reason: Constipation Sodium Biphosphate/Sodium Phosphate (Sodium Phosphate,[place]-Dibasic 133 Ml Enema) 118 ml [place] DAILY PRN PRN Reason: Constipation Tamsulosin HCl (Tamsulosin Hcl 0.4 Mg Capsule) 0.4 mg PO DAILY [facility] Last Admin: 12/07/24 09:46 Dose: 0.4 mg Trazodone HCl (Trazodone Hcl 50 Mg Tablet) 50 mg PO BEDTIME PRN PRN Reason: Insomnia Home Medications ?Medication ?Instructions ?Recorded ?Confirmed ?Last Taken ?Type acetaminophen 325 mg tablet 650 mg PO Q4H PRN Pain 11/21/24 11/30/24 Unknown History acetaminophen 325 mg tablet 650 mg PO Q6H PRN Fever 11/21/24 11/30/24 Unknown History atorvastatin 80 mg tablet 80 mg PO DAILY 11/21/24 11/30/24 Unknown History bisacodyl 10 mg rectal suppository 10 mg [place] DAILY PRN Constipation 11/21/24 11/30/24 Unknown History hydrocortisone 1 % topical 1 appl topical BID 11/21/24 11/30/24 Unknown History ointment (Cortizone-10) magnesium hydroxide 400 mg/5 mL 30 ml PO DAILY PRN Constipation 11/21/24 11/30/24 Unknown History oral suspension (Milk of Magnesia) melatonin 3 mg tablet 6 mg PO BEDTIME 11/21/24 11/30/24 Unknown History menthol 5 % topical patch (Icy Hot 1 patch topical DAILY 11/21/24 11/30/24 Unknown History (menthol)) midodrine 5 mg tablet 10 mg PO TID 11/21/24 11/30/24 11/21/24 History mirtazapine 15 mg tablet 7.5 mg PO BEDTIME 11/21/24 11/30/24 Unknown History pantoprazole 40 mg tablet,delayed 40 mg PO DAILY@0630 11/21/24 11/30/24 11/21/24 History release (Protonix) sennosides 8.6 mg tablet (Senna 8.6 mg PO Q12H PRN Constipation 11/21/24 11/30/24 Unknown History Lax) sodium phosphates 19 gram-7 118 ml [place] DAILY PRN Constipation 11/21/24 11/30/24 Unknown History gram/118 mL enema (Fleet Enema) tamsulosin 0.4 mg capsule (Flomax) 0.4 mg PO DAILY 11/21/24 11/30/24 11/21/24 History Physical Exam Vital Signs and Narrative: Vital Signs: Last Vital Signs Temp 97.4 F 12/07/24 03:12 Pulse 88 12/07/24 03:12 Resp 16 12/07/24 03:12 BP 83/56 L 12/07/24 09:46 Pulse Ox 97 12/06/24 20:00 O2 Del Method Room Air 12/06/24 20:00 BMI result Body Mass Index 20.2 CONST: Alert and oriented, in NAD. Well nourished HEENT: Normocephalic, atraumatic, MMM, Eyes clear, Neck supple RESP: Lungs clear, RRR even and regular HEART:,RRR, S1, S2. No murmur, no edema GI:Abdomen Soft NT, ND. + BS times four :Deferred SKIN: Warm dry and intact, no visible lesions or rashes NEURO:CN II-XII Intact bilaterally, Sensation intact. Speech clear PSYCH: Normal affect Musculoskeletal: Decreased range of motion to left arm, no obvious deformities noted. Skin tear present to right forearm Results Labs 12/02/24 13:49 12/02/24 13:49 Imaging Radiologist's Impressions: Impressions Head CT 12/06/24 10:46 IMPRESSION: Continued evolution of a right frontoparietal subdural hematoma measuring up to 6 mm in thickness with mild mass effect. No intracranial hemorrhage or other acute intracranial abnormality. Electronically signed by: Miguel Ness MD 12/06/2024 11:23 AM EDT Elbow X-Ray 12/07/24 09:11 IMPRESSION: No evidence of fracture of the right elbow. Electronically signed by: Blayne Avila MD 12/07/2024 09:43 AM EDT RP Elbow X-Ray 12/07/24 09:13 IMPRESSION: No evidence of fracture of the left elbow. Electronically signed by: Blayne Avila MD 12/07/2024 09:44 AM EDT RP Assessment and Plan (1) BPH (benign prostatic hyperplasia): Status: Acute Plan 79 year old male with vascular dementia, BPH, hypotension, acute on chronic subdural hematoma, GERD admitted to [facility] for further treatment of Dementia with behavioral disturbances. Vascular dementia/Aggression. Treatment per psych team. BPH/Urinary retention Keep Kelly in place Continue Finesteride and Flomax Will need outpatient urology follow up. Start Myrbetriq for reports of bladder spasms Acute on Chronic subdural hematoma CT scans of the head consistent with old subdural hematoma. Hypotension Continue Midodrine TID Patient is asymptomatic Fall most likely related to urinary retention. GERD Continue PPI Thank you for allowing me to participate in the care of this patient. Will follow as needed, please notify medical provider if any acute concerns or issues arise.
[2024-12-07 11:44] VITALS: BP 85/52
--- NOTE | 2024-12-07 15:49 | HO.PSYCHPN ---
Subjective Subjective Date of Service: 12/07/24 Reason For Visit: agitation Subjective Notes: Conditional Voluntary Healthcare Proxy: Yes Interim History: Pt slept through the night. His orientation as to situation is poor. He is forgetful. He is taking medications as prescribed. continues on to due to unsteady gait, high risk for fall. No SI/HI. No aggression towards self or others. continues to have hotn. Review of Systems Review of Systems He denies any SOB or chest pain. Reports left upper arm pain. Yes all other systems are reviewed and are negative and Unobtainable due to mental status Mental Status Exam Mental Status Exam Narrative: Appearance: wearing hospital gown, fair hygiene, in NAD Behavior: calm Psychomotor: no agitation or retardation noted Speech: mostly clear, normal rate/rhythm/volume, spontaneous TP: mostly linear TC: feeling tired Mood: good Affect: congruent SI: denies HI: denies VH/AH: no overt signs but per he has on and off Delusions: no delusional content reported Insight/judgment: impaired x 2. Memory/cog: alert, knows he is in a hospital, not exactly which one but this seems to fluctuate, not oriented to month nor year. severe inability to retain new information and remember events leading to this admission. Diagnostics Vital Signs (24Hr): Vital Signs - 24 hr 12/06/24 17:07 12/06/24 20:00 12/07/24 03:12 Temperature 97.6 F 97.4 F Pulse Rate 93 88 Respiratory Rate 16 16 Blood Pressure 93/67 92/60 104/60 Pulse Oximetry 97 Oxygen Delivery Method Room Air 12/07/24 08:00 12/07/24 09:46 12/07/24 11:44 Temperature 97.5 F Pulse Rate 99 Respiratory Rate 16 Blood Pressure 83/56 L 83/56 L 85/52 L Pulse Oximetry 98 Oxygen Delivery Method Room Air BMI result Body Mass Index 20.2 Labs 12/02/24 13:49 12/02/24 13:49 Labs: Laboratory Results - last 48 hr 12/05/24 18:00 Urine Color Yellow Urine Appearance Clear Urine pH 6.5 Ur Specific [place] 1.015 Urine Protein 30 (1+) H Urine Glucose (UA) Negative Urine Ketones Negative Urine Blood Moderate (2+) H Urine Nitrite Negative Ur Leukocyte Esterase Moderate (2+) H Urine RBC >20 H Urine WBC >50 H Ur Squamous Epith Cells 0-2 Urine Bacteria None Seen Hyaline Casts 0-2 Imaging Radiology Impressions: ITS Impressions Clavicle X-Ray 11/30/24 08:08 IMPRESSION: Inferiorly displaced fracture distal right clavicle, probable old. Degenerative changes, right shoulder. Consider calcific tendinosis/tendinopathy, supraspinatus. Electronically signed by: Raghav Porras MD 11/30/2024 09:28 AM EDT RP Head CT 12/06/24 10:46 IMPRESSION: Continued evolution of a right frontoparietal subdural hematoma measuring up to 6 mm in thickness with mild mass effect. No intracranial hemorrhage or other acute intracranial abnormality. Electronically signed by: Miguel Ness MD 12/06/2024 11:23 AM EDT RP Elbow X-Ray 12/07/24 09:11 IMPRESSION: No evidence of fracture of the right elbow. Electronically signed by: Blayne Avila MD 12/07/2024 09:43 AM EDT RP Elbow X-Ray 12/07/24 09:13 IMPRESSION: No evidence of fracture of the left elbow. Electronically signed by: Blayne Avila MD 12/07/2024 09:44 AM EDT RP Humerus X-Ray 12/07/24 14:02 IMPRESSION: No acute fracture, left humerus. No change Electronically signed by: Raghav Porras MD 12/07/2024 02:14 PM EDT RP Medications Medications Current Medications Acetaminophen (Acetaminophen 325 Mg Tablet) 650 mg PO Q6H PRN PRN Reason: Headache/Pain, Scale 1-10 Last Admin: 12/03/24 22:47 Dose: 650 mg Al Hydroxide/Mg Hydroxide (Magnesium Hydrox/Alum Hydrox 30 Ml Oral.Susp) 30 ml PO Q6H PRN PRN Reason: Heartburn/Nausea Atorvastatin Calcium (Atorvastatin Calcium 80 Mg Tablet) 80 mg PO DAILY [facility] Last Admin: 12/07/24 09:47 Dose: 80 mg Bisacodyl (Bisacodyl 10 Mg Supp.Rect) 10 mg [place] DAILY PRN PRN Reason: Constipation Cefuroxime Axetil (Cefuroxime Axetil 250 Mg Tablet) 250 mg PO BID [facility] Last Admin: 12/07/24 09:47 Dose: 250 mg Clonazepam (Clonazepam Odt 0.125 Mg Tab.Rapdis) 0.125 mg PO TID [facility] Last Admin: 12/07/24 14:47 Dose: 0.125 mg Finasteride (Finasteride 5 Mg Tablet) 5 mg PO DAILY [facility] Last Admin: 12/07/24 09:47 Dose: 5 mg Hydrocortisone (Hydrocortisone 1 % Ointment 28.35 Gm Tube) 1 appl TOPICAL BID [facility]; Protocol Last Admin: 12/07/24 09:50 Dose: 1 appl Magnesium Hydroxide (Milk Of Magnesia 30 Ml Oral.Susp) 30 ml PO DAILY PRN PRN Reason: Constipation Melatonin (Melatonin 3 Mg Tablet) 6 mg PO BEDTIME [facility] Last Admin: 12/06/24 21:14 Dose: 6 mg Midodrine (Midodrine Hcl 10 Mg Tablet) 10 mg PO TIDWM [facility] Last Admin: 12/07/24 11:44 Dose: 10 mg Mirabegron (Mirabegron 25 Mg Tab.Er.24h) 25 mg PO DAILY [facility] Mirtazapine (Mirtazapine 15 Mg Tablet) 15 mg PO BEDTIME [facility] Last Admin: 12/06/24 21:14 Dose: 15 mg Omeprazole (Omeprazole 20 Mg Capsule.Dr) 20 mg PO DAILY@0630 [facility] Last Admin: 12/07/24 05:33 Dose: 20 mg Risperidone (Risperidone 0.5 Mg Tablet) 0.5 mg PO TID [facility] Last Admin: 12/07/24 14:47 Dose: 0.5 mg Senna (Sennosides 8.6 Mg Tablet) 8.6 mg PO Q12H PRN PRN Reason: Constipation Sodium Biphosphate/Sodium Phosphate (Sodium Phosphate,[place]-Dibasic 133 Ml Enema) 118 ml [place] DAILY PRN PRN Reason: Constipation Tamsulosin HCl (Tamsulosin Hcl 0.4 Mg Capsule) 0.4 mg PO DAILY [facility] Last Admin: 12/07/24 09:46 Dose: 0.4 mg Trazodone HCl (Trazodone Hcl 50 Mg Tablet) 50 mg PO BEDTIME PRN PRN Reason: Insomnia Allergies Allergies Allergy/AdvReac Type Severity Reaction Status Date / Time No Known Allergies Allergy Verified 11/30/24 02:25 Assessment & Plan Assessment & Plan (1) Major neurocognitive disorder due to multiple etiologies, with psychotic disturbance: Status: Acute Code(s): F02.82 - Dementia in other diseases classified elsewhere, unspecified severity, with psychotic disturbance (2) Lewy body dementia with psychotic disturbance: Status: Acute Code(s): G31.83 - Neurocognitive disorder with Lewy bodies; F02.82 - Dementia in other diseases classified elsewhere, unspecified severity, with psychotic disturbance Plan Mr. Quintero is a 79 year-old male with hx of Dementia, it does appear to be of Lewy Body with periods of visual hallucinations, autonomic dysfunction, some degree of fluctuation in terms of orientation. HCP has been invoked, he is CV by HCP. Will continue seroquel for now and assess efficacy. PLAN 12/05 d/c seroquel, continue only risperidone. continue to monitor hotn, on midodrine. 12/06 hit head, ordered head CT no new intracraneal bleed. subdural hematoma noted again. continue bladder scans q6h straigh cath if pvr>500cc 12/07 continue tx. Reason for continued inpatient stay Substantial Risk for: inability to function Time Spent With Patient Time: Total time managing care of this patient today ____ minutes.
[2024-12-07 16:54] VITALS: BP 86/52
--- NOTE | 2024-12-08 07:06 | PC.NURSE ---
Patient was agitated and restless during evening, at times hostile and verbally abusive to staff, 1:[address] for fall risk/safety. Patient refused all HS meds but accepted AM dose of omeprazole. Patient 's Cruz catheter was found dislodged during morning, bladder scanned for 436 ml. New Cruz catheter placed, procedure well tolerated.
[2024-12-08 08:00] VITALS: BP 83/48; PULSE 80; RESP 16; TEMP 36.3; O2SAT 95
[2024-12-08 08:38] VITALS: BP 83/48
[2024-12-08] MEDS: clonazePAM ODT 0.125 MG TAB.RAPDIS PO ×2 (08:38→14:53)
[2024-12-08] MEDS: Hydrocortisone 1 % Ointment 28.35 GM TUBE 1 APPL TOPICAL (08:43)
[2024-12-08 08:54] VITALS: BP 92/56; PULSE 88
[2024-12-08 11:32] VITALS: BP 94/56
[2024-12-08 16:43] VITALS: BP 96/58
--- NOTE | 2024-12-08 18:09 | HO.PSYCHPN ---
Subjective Subjective Date of Service: 12/08/24 Reason For Visit: agitation Subjective Notes: Conditional Voluntary Interim History: Pt slept through the night. He is calmer. He reports he doing well. He reports he misses his and wonders why she is not here. No SI/HI. Per nursing, pt yesterday was more irritable and combative with staff. No direct aggression, but irritable and verbally abusive. hospitalist following for ortho hotn. Medication Compliance: Yes Review of Systems Review of Systems He denies any SOB or chest pain. Reports left upper arm pain. Yes all other systems are reviewed and are negative and Unobtainable due to mental status Mental Status Exam Mental Status Exam Narrative: Appearance: wearing hospital gown, fair hygiene, in NAD Behavior: calm Psychomotor: no agitation or retardation noted Speech: mostly clear, normal rate/rhythm/volume, spontaneous TP: mostly linear TC: feeling tired Mood: good Affect: congruent SI: denies HI: denies VH/AH: no overt signs but per he has on and off Delusions: no delusional content reported Insight/judgment: impaired x 2. Memory/cog: alert, knows he is in a hospital, not exactly which one but this seems to fluctuate, not oriented to month nor year. severe inability to retain new information and remember events leading to this admission. Diagnostics Vital Signs (24Hr): Vital Signs - 24 hr 12/08/24 08:00 12/08/24 08:38 12/08/24 08:54 Temperature 97.3 F Pulse Rate 80 88 Respiratory Rate 16 Blood Pressure 83/48 L 83/48 L 92/56 L Pulse Oximetry 95 Oxygen Delivery Method Room Air 12/08/24 11:32 12/08/24 16:43 Temperature Pulse Rate Respiratory Rate Blood Pressure 94/56 L 96/58 L Pulse Oximetry Oxygen Delivery Method BMI result Body Mass Index 20.2 Labs 12/02/24 13:49 12/02/24 13:49 Imaging Radiology Impressions: ITS Impressions Clavicle X-Ray 11/30/24 08:08 IMPRESSION: Inferiorly displaced fracture distal right clavicle, probable old. Degenerative changes, right shoulder. Consider calcific tendinosis/tendinopathy, supraspinatus. Electronically signed by: Raghav Porras MD 11/30/2024 09:28 AM EDT RP Head CT 12/06/24 10:46 IMPRESSION: Continued evolution of a right frontoparietal subdural hematoma measuring up to 6 mm in thickness with mild mass effect. No intracranial hemorrhage or other acute intracranial abnormality. Electronically signed by: Miguel Ness MD 12/06/2024 11:23 AM EDT RP Elbow X-Ray 12/07/24 09:11 IMPRESSION: No evidence of fracture of the right elbow. Electronically signed by: Blayne Avila MD 12/07/2024 09:43 AM EDT RP Elbow X-Ray 12/07/24 09:13 IMPRESSION: No evidence of fracture of the left elbow. Electronically signed by: Blayne Avila MD 12/07/2024 09:44 AM EDT RP Humerus X-Ray 12/07/24 14:02 IMPRESSION: No acute fracture, left humerus. No change Electronically signed by: Raghav Porras MD 12/07/2024 02:14 PM EDT RP Medications Medications Current Medications Acetaminophen (Acetaminophen 325 Mg Tablet) 650 mg PO Q6H PRN PRN Reason: Headache/Pain, Scale 1-10 Last Admin: 12/03/24 22:47 Dose: 650 mg Al Hydroxide/Mg Hydroxide (Magnesium Hydrox/Alum Hydrox 30 Ml Oral.Susp) 30 ml PO Q6H PRN PRN Reason: Heartburn/Nausea Atorvastatin Calcium (Atorvastatin Calcium 80 Mg Tablet) 80 mg PO DAILY [facility] Last Admin: 12/08/24 08:38 Dose: 80 mg Bisacodyl (Bisacodyl 10 Mg Supp.Rect) 10 mg [place] DAILY PRN PRN Reason: Constipation Last Admin: 12/08/24 16:44 Dose: 10 mg Cefuroxime Axetil (Cefuroxime Axetil 250 Mg Tablet) 250 mg PO BID [facility] Last Admin: 12/08/24 08:38 Dose: 250 mg Clonazepam (Clonazepam Odt 0.125 Mg Tab.Rapdis) 0.125 mg PO TID [facility] Last Admin: 12/08/24 14:53 Dose: 0.125 mg Finasteride (Finasteride 5 Mg Tablet) 5 mg PO DAILY [facility] Last Admin: 12/08/24 08:38 Dose: 5 mg Hydrocortisone (Hydrocortisone 1 % Ointment 28.35 Gm Tube) 1 appl TOPICAL BID [facility]; Protocol Last Admin: 12/08/24 08:43 Dose: 1 appl Magnesium Hydroxide (Milk Of Magnesia 30 Ml Oral.Susp) 30 ml PO DAILY PRN PRN Reason: Constipation Melatonin (Melatonin 3 Mg Tablet) 6 mg PO BEDTIME [facility] Last Admin: 12/07/24 23:02 Dose: Not Given Midodrine (Midodrine Hcl 10 Mg Tablet) 10 mg PO TIDWM [facility] Last Admin: 12/08/24 16:43 Dose: 10 mg Mirabegron (Mirabegron 25 Mg Tab.Er.24h) 25 mg PO DAILY [facility] Last Admin: 12/08/24 08:38 Dose: 25 mg Mirtazapine (Mirtazapine 15 Mg Tablet) 15 mg PO BEDTIME [facility] Last Admin: 12/07/24 23:02 Dose: Not Given Omeprazole (Omeprazole 20 Mg Capsule.Dr) 20 mg PO DAILY@0630 [facility] Last Admin: 12/08/24 06:43 Dose: 20 mg Risperidone (Risperidone 0.5 Mg Tablet) 0.5 mg PO TID [facility] Last Admin: 12/08/24 14:53 Dose: 0.5 mg Senna (Sennosides 8.6 Mg Tablet) 8.6 mg PO Q12H PRN PRN Reason: Constipation Sodium Biphosphate/Sodium Phosphate (Sodium Phosphate,[place]-Dibasic 133 Ml Enema) 118 ml [place] DAILY PRN PRN Reason: Constipation Tamsulosin HCl (Tamsulosin Hcl 0.4 Mg Capsule) 0.4 mg PO DAILY [facility] Last Admin: 12/08/24 08:38 Dose: 0.4 mg Trazodone HCl (Trazodone Hcl 50 Mg Tablet) 50 mg PO BEDTIME PRN PRN Reason: Insomnia Allergies Allergies Allergy/AdvReac Type Severity Reaction Status Date / Time No Known Allergies Allergy Verified 11/30/24 02:25 Assessment & Plan Assessment & Plan (1) Major neurocognitive disorder due to multiple etiologies, with psychotic disturbance: Status: Acute Code(s): F02.82 - Dementia in other diseases classified elsewhere, unspecified severity, with psychotic disturbance (2) Lewy body dementia with psychotic disturbance: Status: Acute Code(s): G31.83 - Neurocognitive disorder with Lewy bodies; F02.82 - Dementia in other diseases classified elsewhere, unspecified severity, with psychotic disturbance Plan Mr. Quintero is a 79 year-old male with hx of Dementia, it does appear to be of Lewy Body with periods of visual hallucinations, autonomic dysfunction, some degree of fluctuation in terms of orientation. HCP has been invoked, he is CV by HCP. Will continue seroquel for now and assess efficacy. PLAN 12/05 d/c seroquel, continue only risperidone. continue to monitor hotn, on midodrine. 12/06 hit head, ordered head CT no new intracraneal bleed. subdural hematoma noted again. continue bladder scans q6h straigh cath if pvr>500cc 12/07 continue tx. added low dose clonazepam 0.125mg po TID. 12/08 continue tx. Reason for continued inpatient stay Substantial Risk for: inability to function Time Spent With Patient Time: Total time managing care of this patient today ____ minutes.
[2024-12-08 20:00] VITALS: BP 108/57; PULSE 89; RESP 16; TEMP 36.2; O2SAT 95
[2024-12-09 08:00] VITALS: BP 86/55; PULSE 73; TEMP 36.3; O2SAT 95
[2024-12-09 10:36] VITALS: BP 92/56
[2024-12-09] MEDS: clonazePAM ODT 0.125 MG TAB.RAPDIS PO ×3 (10:36→21:00)
--- NOTE | 2024-12-09 14:51 | PC.NURSE ---
At approximately 1145 Patient abruptly stood up from W/C stating, I have to go to the BR. Patient had forgotten he had an indwelling kelly catheter in place.Patient fell due to Kelly being attached to bottom of W/C. Vitals were taken, Skin check done. Patient sustained a small skin tear to R leg. Dressing applied. Following fall Kelly was checked and was found to have been pulled out. New kelly inserted. Patient tolerated well. Observed to be draining clear/dark yellow urine. Patient remains on 5 minute checks for safety. Provider and Hospitalist notified.
--- NOTE | 2024-12-09 15:30 | P.PNPSI_ITS ---
Subjective Subjective Date of Service: 12/09/24 Reason For Visit: agitation Subjective Notes: Conditional Voluntary Healthcare Proxy: Yes Interim History: Pt slept for 6hrs. He is impulsive and unsteady on his feet. He felt today because he stood up and despite nurse telling him not to attempt to walk as he has the kelly he did. He landed on his right side, no head injury. He is easily bruising. His skin is very thin, prone to breaking. he is not on any anticoagulant. Very low albumin. He is taking medications as prescribed, he dos have an irritable edge and verbally assaultive towards staff along with times when resistant to care. Diagnostics Vital Signs (24Hr): Vital Signs - 24 hr 12/08/24 16:43 12/08/24 20:00 12/09/24 08:00 Temperature 97.1 F 97.3 F Pulse Rate 89 73 Respiratory Rate 16 Blood Pressure 96/58 L 108/57 L 86/55 L Pulse Oximetry 95 95 Oxygen Delivery Method Room Air Room Air 12/09/24 10:36 Temperature Pulse Rate Respiratory Rate Blood Pressure 92/56 L Pulse Oximetry Oxygen Delivery Method BMI result Body Mass Index 20.2 Labs 12/02/24 13:49 12/02/24 13:49 Imaging Radiology Impressions: ITS Impressions Clavicle X-Ray 11/30/24 08:08 IMPRESSION: Inferiorly displaced fracture distal right clavicle, probable old. Degenerative changes, right shoulder. Consider calcific tendinosis/tendinopathy, supraspinatus. Electronically signed by: Raghav Porras MD 11/30/2024 09:[address] 12/06/24 10:46 IMPRESSION: Continued evolution of a right frontoparietal subdural hematoma measuring up to 6 mm in thickness with mild mass effect. No intracranial hemorrhage or other acute intracranial abnormality. Electronically signed by: Miguel Ness MD 12/06/2024 11:23 AM EDT Elbow X-Ray 12/07/24 09:11 IMPRESSION: No evidence of fracture of the right elbow. Electronically signed by: Blayne Avila MD 12/07/2024 09:43 AM EDT Elbow X-Ray 12/07/24 09:13 IMPRESSION: No evidence of fracture of the left elbow. Electronically signed by: Blayne Avila MD 12/07/2024 09:44 AM EDT RP Humerus X-Ray 12/07/24 14:02 IMPRESSION: No acute fracture, left humerus. No change Electronically signed by: Raghav Porras MD 12/07/2024 02:14 PM EDT RP Medications Medications Current Medications Acetaminophen (Acetaminophen 325 Mg Tablet) 650 mg PO Q6H PRN PRN Reason: Headache/Pain, Scale 1-10 Last Admin: 12/03/24 22:47 Dose: 650 mg Al Hydroxide/Mg Hydroxide (Magnesium Hydrox/Alum Hydrox 30 Ml Oral.Susp) 30 ml PO Q6H PRN PRN Reason: Heartburn/Nausea Atorvastatin Calcium (Atorvastatin Calcium 80 Mg Tablet) 80 mg PO DAILY [facility] B[facility]S AT [facility] Last Admin: 12/09/24 10:36 Dose: 80 mg Bisacodyl (Bisacodyl 10 Mg Supp.Rect) 10 mg [place] DAILY PRN PRN Reason: Constipation Last Admin: 12/08/24 16:44 Dose: 10 mg Cefuroxime Axetil (Cefuroxime Axetil 250 Mg Tablet) 250 mg PO BID [facility] 234 [facility]S [facility] Last Admin: 12/09/24 10:36 Dose: 250 mg Clonazepam (Clonazepam Odt 0.125 Mg Tab.Rapdis) 0.125 mg PO TID [facility] 234 [facility]S AT [facility] Last Admin: 12/09/24 10:36 Dose: 0.125 mg Finasteride (Finasteride 5 Mg Tablet) 5 mg PO DAILY [facility] 234 B[facility]S AT [facility] Last Admin: 12/09/24 10:36 Dose: 5 mg Hydrocortisone (Hydrocortisone 1 % Ointment 28.35 Gm Tube) 1 appl TOPICAL BID [facility] 234 B[facility]S AT [facility]; Protocol Last Admin: 12/09/24 10:38 Dose: Not Given Magnesium Hydroxide (Milk Of Magnesia 30 Ml Oral.Susp) 30 ml PO DAILY PRN PRN Reason: Constipation Melatonin (Melatonin 3 Mg Tablet) 6 mg PO BEDTIME [facility] 234 [facility]S [facility] Last Admin: 12/08/24 21:45 Dose: Not Given Midodrine (Midodrine Hcl 10 Mg Tablet) 10 mg PO TIDWM [facility]S [facility]CLUDE 234 BEDS AT [facility] Last Admin: 12/09/24 11:32 Dose: Not Given Mirabegron (Mirabegron 25 Mg Tab.Er.24h) 25 mg PO DAILY [facility] 234 [facility]S [facility] Last Admin: 12/09/24 10:36 Dose: 25 mg Mirtazapine (Mirtazapine 15 Mg Tablet) 15 mg PO BEDTIME [facility] 234 [facility]S AT [facility] Last Admin: 12/08/24 21:45 Dose: Not Given Omeprazole (Omeprazole 20 Mg Capsule.) 20 mg PO DAILY@0630 [facility] 234 B[facility]S AT [facility] Last Admin: 12/09/24 06:38 Dose: Not Given Risperidone (Risperidone 0.5 Mg Tablet) 0.5 mg PO TID [facility] 234 [facility]S AT [facility] Last Admin: 12/09/24 10:38 Dose: 0.5 mg Senna (Sennosides 8.6 Mg Tablet) 8.6 mg PO Q12H PRN PRN Reason: Constipation Sodium Biphosphate/Sodium Phosphate (Sodium Phosphate,[place]-Dibasic 133 Ml Enema) 118 ml [place] DAILY PRN PRN Reason: Constipation Tamsulosin HCl (Tamsulosin Hcl 0.4 Mg Capsule) 0.4 mg PO DAILY [facility] 234 BEDS AT [facility] Last Admin: 12/09/24 10:36 Dose: 0.4 mg Trazodone HCl (Trazodone Hcl 50 Mg Tablet) 50 mg PO BEDTIME PRN PRN Reason: Insomnia Allergies Allergies Allergy/AdvReac Type Severity Reaction Status Date / Time No Known Allergies Allergy Verified 11/30/24 02:25 Assessment & Plan Assessment & Plan (1) Major neurocognitive disorder due to multiple etiologies, with psychotic disturbance: Status: Acute Code(s): F02.82 - Dementia in other diseases classified elsewhere, unspecified severity, with psychotic disturbance (2) Lewy body dementia with psychotic disturbance: Status: Acute Code(s): G31.83 - Neurocognitive disorder with Lewy bodies; F02.82 - Dementia in other diseases classified elsewhere, unspecified severity, with psychotic disturbance Plan Mr. Quintero is a 79 year-old male with hx of Dementia, it does appear to be of Lewy Body with periods of visual hallucinations, autonomic dysfunction, some degree of fluctuation in terms of orientation. HCP has been invoked, he is CV by HCP. Will continue seroquel for now and assess efficacy. PLAN 12/05 d/c seroquel, continue only risperidone. continue to monitor hotn, on midodrine. 12/06 hit head, ordered head CT no new intracraneal bleed. subdural hematoma noted again. continue bladder scans q6h straigh cath if pvr>500cc 12/07 continue tx. added low dose clonazepam 0.125mg po TID. 12/08 continue tx. 12/09 add low dose depakote 125mg PO BID. Note pt has very low albumin level (check free VPA, instead or total). continue risperidone, no EPS noted. Continue low dose of clonazepam. Reason for continued inpatient stay Substantial Risk for: inability to function Time Spent With Patient Time: Total time managing care of this patient today ____ minutes.
[2024-12-09 17:14] VITALS: BP 70/41
[2024-12-09 20:00] VITALS: BP 91/58; PULSE 68; RESP 16; TEMP 36.3; O2SAT 99
[2024-12-09] MEDS: Divalproex Sodium Sprinkles 125 MG CAP.DR.SPR PO (21:00)
[2024-12-10 08:00] VITALS: RESP 14
[2024-12-10] MEDS: Divalproex Sodium Sprinkles 125 MG CAP.DR.SPR PO (20:26)
[2024-12-10] MEDS: clonazePAM ODT 0.125 MG TAB.RAPDIS PO (20:26)
--- NOTE | 2024-12-10 22:53 | P.PNPSI_ITS ---
Subjective Subjective Date of Service: 12/10/24 Reason For Visit: agitation Subjective Notes: Conditional Voluntary Healthcare Proxy: Yes Interim History: Patient has struggled with intermittent agitation today. Per staff, earlier today he tried to pull his Cruz out. He is currently on 1:1 monitoring. On approach he was in his room. Offered a paucity of thought content. He stated that he was just fine and denied SI/HI/AVH. He was confused about the Cruz, and has been going [id number] from the bathroom at times, dragging the Cruz bag behind him. 1:1? monitor attempting to assist, however, he has been agitated at times with the monitors. Medication Compliance: Yes Attending Groups: No Review of Systems Acute medical concerns: No Medical Review of Systems: unchanged Mental Status Exam Mental Status Exam Narrative: Mental Status Exam Narrative: Appearance: wearing hospital gown, fair hygiene, in NAD Behavior: calm Psychomotor: fidgeting with foly catheter Speech: mostly clear, normal rate/rhythm/volume, spontaneous TP: mostly linear TC: feeling tired Mood: good Affect: congruent SI: denies HI: denies VH/AH: denies Delusions: no delusional content reported Insight/judgment: impaired Memory/cog: oriented to person, year. Diagnostics Vital Signs (24Hr): Vital Signs - 24 hr 12/10/24 08:00 Respiratory Rate 14 BMI result Body Mass Index 20.2 Labs 12/02/24 13:49 12/02/24 13:49 Imaging Radiology Impressions: ITS Impressions Clavicle X-Ray 11/30/24 08:08 IMPRESSION: Inferiorly displaced fracture distal right clavicle, probable old. Degenerative changes, right shoulder. Consider calcific tendinosis/tendinopathy, supraspinatus. Electronically signed by: Raghav Porras MD 11/30/2024 09:28 AM EDT RP Head CT 12/06/24 10:46 IMPRESSION: Continued evolution of a right frontoparietal subdural hematoma measuring up to 6 mm in thickness with mild mass effect. No intracranial hemorrhage or other acute intracranial abnormality. Electronically signed by: Miguel Ness MD 12/06/2024 11:23 AM EDT RP Elbow X-Ray 12/07/24 09:11 IMPRESSION: No evidence of fracture of the right elbow. Electronically signed by: Blayne Avila MD 12/07/2024 09:43 AM EDT RP Elbow X-Ray 12/07/24 09:13 IMPRESSION: No evidence of fracture of the left elbow. Electronically signed by: Blayne Avila MD 12/07/2024 09:44 AM EDT RP Humerus X-Ray 12/07/24 14:02 IMPRESSION: No acute fracture, left humerus. No change Electronically signed by: Raghav Porras MD 12/07/2024 02:14 PM EDT RP Medications Medications Current Medications Acetaminophen (Acetaminophen 325 Mg Tablet) 650 mg PO Q6H PRN PRN Reason: Headache/Pain, Scale 1-10 Last Admin: 12/03/24 22:47 Dose: 650 mg Al Hydroxide/Mg Hydroxide (Magnesium Hydrox/Alum Hydrox 30 Ml Oral.Susp) 30 ml PO Q6H PRN PRN Reason: Heartburn/Nausea Atorvastatin Calcium (Atorvastatin Calcium 80 Mg Tablet) 80 mg PO DAILY [facility] Last Admin: 12/10/24 12:02 Dose: Not Given Bisacodyl (Bisacodyl 10 Mg Supp.Rect) 10 mg [place] DAILY PRN PRN Reason: Constipation Last Admin: 12/08/24 16:44 Dose: 10 mg Clonazepam (Clonazepam Odt 0.125 Mg Tab.Rapdis) 0.125 mg PO TID [facility] Last Admin: 12/10/24 20:26 Dose: 0.125 mg Divalproex Sodium (Divalproex Sodium Sprinkles 125 Mg ) 125 mg PO BID [facility] Last Admin: 12/10/24 20:26 Dose: 125 mg Finasteride (Finasteride 5 Mg Tablet) 5 mg PO DAILY [facility] Last Admin: 12/10/24 12:02 Dose: Not Given Hydrocortisone (Hydrocortisone 1 % Ointment 28.35 Gm Tube) 1 appl TOPICAL BID [facility]; Protocol Last Admin: 12/10/24 22:47 Dose: Not Given Magnesium Hydroxide (Milk Of Magnesia 30 Ml Oral.Susp) 30 ml PO DAILY PRN PRN Reason: Constipation Melatonin (Melatonin 3 Mg Tablet) 6 mg PO BEDTIME [facility] Last Admin: 12/10/24 20:25 Dose: 6 mg Midodrine (Midodrine Hcl 10 Mg Tablet) 10 mg PO TIDWM [facility] Last Admin: 12/10/24 17:06 Dose: Not Given Mirabegron (Mirabegron 25 Mg Tab.Er.24h) 25 mg PO DAILY [facility] Last Admin: 12/10/24 12:03 Dose: Not Given Mirtazapine (Mirtazapine 15 Mg Tablet) 15 mg PO BEDTIME [facility] Last Admin: 12/10/24 20:26 Dose: 15 mg Omeprazole (Omeprazole 20 Mg Capsule.Dr) 20 mg PO DAILY@0630 [facility] Last Admin: 12/10/24 06:54 Dose: 20 mg Risperidone (Risperidone 0.5 Mg Tablet) 0.5 mg PO TID [facility] Last Admin: 12/10/24 20:26 Dose: 0.5 mg Senna (Sennosides 8.6 Mg Tablet) 8.6 mg PO Q12H PRN PRN Reason: Constipation Sodium Biphosphate/Sodium Phosphate (Sodium Phosphate,[place]-Dibasic 133 Ml Enema) 118 ml [place] DAILY PRN PRN Reason: Constipation Tamsulosin HCl (Tamsulosin Hcl 0.4 Mg Capsule) 0.4 mg PO DAILY [facility] Last Admin: 12/10/24 12:03 Dose: Not Given Trazodone HCl (Trazodone Hcl 50 Mg Tablet) 50 mg PO BEDTIME PRN PRN Reason: Insomnia Allergies Allergies Allergy/AdvReac Type Severity Reaction Status Date / Time No Known Allergies Allergy Verified 11/30/24 02:25 Assessment & Plan Assessment & Plan (1) Major neurocognitive disorder due to multiple etiologies, with psychotic disturbance: Status: Acute Code(s): F02.82 - Dementia in other diseases classified elsewhere, unspecified severity, with psychotic disturbance (2) Lewy body dementia with psychotic disturbance: Status: Acute Code(s): G31.83 - Neurocognitive disorder with Lewy bodies; F02.82 - Dementia in other diseases classified elsewhere, unspecified severity, with psychotic disturbance Plan Mr. Quintero is a 79 year-old male with hx of Dementia, it does appear to be of Lewy Body with periods of visual hallucinations, autonomic dysfunction, some degree of fluctuation in terms of orientation. HCP has been invoked, he is CV by HCP. Will continue seroquel for now and assess efficacy. PLAN 12/05 d/c seroquel, continue only risperidone. continue to monitor hotn, on midodrine. 12/06 hit head, ordered head CT no new intracraneal bleed. subdural hematoma noted again. continue bladder scans q6h straigh cath if pvr>500cc 12/07 continue tx. added low dose clonazepam 0.125mg po TID. 12/08 continue tx. 12/09 add low dose depakote 125mg PO BID. Note pt has very low albumin level (check free VPA, instead or total). continue risperidone, no EPS noted. Continue low dose of clonazepam. Patient educated on: diagnosis Informed Consent: does not understand Reason for continued inpatient stay Substantial Risk for: inability to function, rapid decompensation and med/psych decompensation Time Spent With Patient Time: Total time managing care of this patient today _15___ minutes.
--- NOTE | 2024-12-11 10:37 | P.PNPSI_ITS ---
Subjective Subjective Date of Service: 12/11/24 Reason For Visit: agitation Subjective Notes: Conditional Voluntary Healthcare Proxy: Yes Guardianship: No Medical Problems Affecting Mental Status: No Interim History: Interrelated Special Education Teacher alerted that patient was agitated this morning at 10:34 AM. Patient refused scheduled medications on first approach, lunged at one: one monitor. Building wide alarm activated, show of support engaged. Patient offered his scheduled PO medications to target agitation, he refused and threw them behind him on the floor. he did calm with staff present. We will continue to monitor closely and offer scheduled medications. Discussed contingency plans for ongoing med refusal and any further physical aggression Medication Compliance: No Side effects from medications: No Attending Groups: No Review of Systems Acute medical concerns: No Medical Review of Systems: unchanged Review of Systems Review of Systems Yes Unobtainable due to mental status Mental Status Exam Mental Status Exam Narrative: Patient Appearance: disheveled Patient Behavior: combative Ability to Follow Directions: poor Level of Consciousness: Awake, alert Patient Orientation: grossly to encounter Memory: impaired recent and remote Psychomotor: agitation Speech: loud Mood: ?angry? Affect: irritable Thought Process: disorganized Thought Content: denies SI/HI; focused on treatment questions Hallucinations: Denies; appears preoccupied Delusions: paranoid themes Insight: significant impairment Judgment: significant impairment Impulsivity: elevated Diagnostics Vital Signs (24Hr): BMI result Body Mass Index 20.2 Labs 12/02/24 13:49 12/02/24 13:49 Imaging Radiology Impressions: ITS Impressions Clavicle X-Ray 11/30/24 08:08 IMPRESSION: Inferiorly displaced fracture distal right clavicle, probable old. Degenerative changes, right shoulder. Consider calcific tendinosis/tendinopathy, supraspinatus. Electronically signed by: Raghav Porras MD 11/30/2024 09:28 AM EDT RP Head CT 12/06/24 10:46 IMPRESSION: Continued evolution of a right frontoparietal subdural hematoma measuring up to 6 mm in thickness with mild mass effect. No intracranial hemorrhage or other acute intracranial abnormality. Electronically signed by: Miguel Ness MD 12/06/2024 11:23 AM EDT RP Elbow X-Ray 12/07/24 09:11 IMPRESSION: No evidence of fracture of the right elbow. Electronically signed by: Blayne Avila MD 12/07/2024 09:43 AM EDT RP Elbow X-Ray 12/07/24 09:13 IMPRESSION: No evidence of fracture of the left elbow. Electronically signed by: Blayne Avila MD 12/07/2024 09:44 AM EDT RP Humerus X-Ray 12/07/24 14:02 IMPRESSION: No acute fracture, left humerus. No change Electronically signed by: Raghav Porras MD 12/07/2024 02:14 PM EDT RP Medications Medications Current Medications Acetaminophen (Acetaminophen 325 Mg Tablet) 650 mg PO Q6H PRN PRN Reason: Headache/Pain, Scale 1-10 Last Admin: 12/03/24 22:47 Dose: 650 mg Al Hydroxide/Mg Hydroxide (Magnesium Hydrox/Alum Hydrox 30 Ml Oral.Susp) 30 ml PO Q6H PRN PRN Reason: Heartburn/Nausea Atorvastatin Calcium (Atorvastatin Calcium 80 Mg Tablet) 80 mg PO DAILY [facility] Last Admin: 12/11/24 09:54 Dose: Not Given Bisacodyl (Bisacodyl 10 Mg Supp.Rect) 10 mg [place] DAILY PRN PRN Reason: Constipation Last Admin: 12/08/24 16:44 Dose: 10 mg Clonazepam (Clonazepam Odt 0.125 Mg Tab.Rapdis) 0.125 mg PO TID [facility] Last Admin: 12/11/24 09:54 Dose: Not Given Divalproex Sodium (Divalproex Sodium Sprinkles 125 Mg ) 125 mg PO BID [facility] Last Admin: 12/11/24 09:54 Dose: Not Given Finasteride (Finasteride 5 Mg Tablet) 5 mg PO DAILY [facility] Last Admin: 12/11/24 09:54 Dose: Not Given Hydrocortisone (Hydrocortisone 1 % Ointment 28.35 Gm Tube) 1 appl TOPICAL BID [facility]; Protocol Last Admin: 12/11/24 09:54 Dose: Not Given Magnesium Hydroxide (Milk Of Magnesia 30 Ml Oral.Susp) 30 ml PO DAILY PRN PRN Reason: Constipation Melatonin (Melatonin 3 Mg Tablet) 6 mg PO BEDTIME [facility] Last Admin: 12/10/24 20:25 Dose: 6 mg Midodrine (Midodrine Hcl 10 Mg Tablet) 10 mg PO TIDWM [facility] Last Admin: 12/11/24 09:53 Dose: Not Given Mirabegron (Mirabegron 25 Mg Tab.Er.24h) 25 mg PO DAILY [facility] Last Admin: 12/11/24 09:54 Dose: Not Given Mirtazapine (Mirtazapine 15 Mg Tablet) 15 mg PO BEDTIME [facility] Last Admin: 12/10/24 20:26 Dose: 15 mg Omeprazole (Omeprazole 20 Mg Capsule.Dr) 20 mg PO DAILY@0630 [facility] Last Admin: 12/11/24 07:06 Dose: Not Given Risperidone (Risperidone 0.5 Mg Tablet) 0.5 mg PO TID [facility] Last Admin: 12/11/24 09:55 Dose: Not Given Senna (Sennosides 8.6 Mg Tablet) 8.6 mg PO Q12H PRN PRN Reason: Constipation Sodium Biphosphate/Sodium Phosphate (Sodium Phosphate,[place]-Dibasic 133 Ml Enema) 118 ml [place] DAILY PRN PRN Reason: Constipation Tamsulosin HCl (Tamsulosin Hcl 0.4 Mg Capsule) 0.4 mg PO DAILY [facility] Last Admin: 12/11/24 09:54 Dose: Not Given Trazodone HCl (Trazodone Hcl 50 Mg Tablet) 50 mg PO BEDTIME PRN PRN Reason: Insomnia Allergies Allergies Allergy/AdvReac Type Severity Reaction Status Date / Time No Known Allergies Allergy Verified 11/30/24 02:25 Assessment & Plan Assessment & Plan (1) Major neurocognitive disorder due to multiple etiologies, with psychotic disturbance: Status: Acute Code(s): F02.82 - Dementia in other diseases classified elsewhere, unspecified severity, with psychotic disturbance (2) Lewy body dementia with psychotic disturbance: Status: Acute Code(s): G31.83 - Neurocognitive disorder with Lewy bodies; F02.82 - Dementia in other diseases classified elsewhere, unspecified severity, with psychotic disturbance Plan Mr. Quintero is a 79 year-old male with hx of Dementia, it does appear to be of Lewy Body with periods of visual hallucinations, autonomic dysfunction, some degree of fluctuation in terms of orientation. HCP has been invoked, he is CV by HCP. Will continue seroquel for now and assess efficacy. PLAN 12/05 d/c seroquel, continue only risperidone. continue to monitor hotn, on midodrine. 12/06 hit head, ordered head CT no new intracraneal bleed. subdural hematoma noted again. continue bladder scans q6h straigh cath if pvr>500cc 12/07 continue tx. added low dose clonazepam 0.125mg po TID. 12/08 continue tx. 12/09 add low dose depakote 125mg PO BID. Note pt has very low albumin level (check free VPA, instead or total). continue risperidone, no EPS noted. Continue low dose of clonazepam. 12/10: no change today 12/11: aggressive, refusing meds - no treatment plan change yet Patient educated on: diagnosis and medication risk/benefits Informed Consent: does not understand Reason for continued inpatient stay Substantial Risk for: harm to others, inability to function and rapid decompensation Time Spent With Patient Time: Total time managing care of this patient today _25___ minutes.
[2024-12-11] MEDS: clonazePAM ODT 0.125 MG TAB.RAPDIS PO ×2 (15:43→20:19)
[2024-12-11 20:00] VITALS: BP 98/58; PULSE 90; RESP 16; TEMP 36.4; O2SAT 98
[2024-12-11] MEDS: Divalproex Sodium Sprinkles 125 MG CAP.DR.SPR PO (20:19)
--- NOTE | 2024-12-12 07:10 | PC.NURSE ---
Patient has been confused and irritable throughout shift, fixated on going to bathroom and peeing, tugging on Cruz tubing. Cruz catheter came out in the evening, intact with ballot deflated; new Cruz reinserted. 1200 ml of clear yellow urine drained during shift.
--- NOTE | 2024-12-12 08:41 | HO.PSYCHPN ---
Subjective Subjective Date of Service: 12/12/24 Reason For Visit: agitation Subjective Notes: Conditional Voluntary Healthcare Proxy: Yes Interim History: Pt slept 8hrs. He is irritable and upset this morning. He thinks he is at home and we are keeping him prisoner. He threw all his medications at RN. He declines to eat. When this filing writer met with him, he reports he will only take medications that will kill him because he would rather be than in his house like this. Not oriented to month nor situation. He later did agree to take medications and had some food. He attempted to pull Cruz. Review of Systems Review of Systems He denies any SOB or chest pain. Reports left upper arm pain. Yes all other systems are reviewed and are negative and Unobtainable due to mental status Diagnostics Vital Signs (24Hr): Vital Signs - 24 hr 12/11/24 20:00 Temperature 97.5 F Pulse Rate 90 Respiratory Rate 16 Blood Pressure 98/58 L Pulse Oximetry 98 Oxygen Delivery Method Room Air BMI result Body Mass Index 20.2 Labs 12/02/24 13:49 12/02/24 13:49 Imaging Radiology Impressions: ITS Impressions Clavicle X-Ray 11/30/24 08:08 IMPRESSION: Inferiorly displaced fracture distal right clavicle, probable old. Degenerative changes, right shoulder. Consider calcific tendinosis/tendinopathy, supraspinatus. Electronically signed by: Raghav Porras MD 11/30/2024 09:28 AM EDT RP Head CT 12/06/24 10:46 IMPRESSION: Continued evolution of a right frontoparietal subdural hematoma measuring up to 6 mm in thickness with mild mass effect. No intracranial hemorrhage or other acute intracranial abnormality. Electronically signed by: Miguel Ness MD 12/06/2024 11:23 AM EDT RP Elbow X-Ray 12/07/24 09:11 IMPRESSION: No evidence of fracture of the right elbow. Electronically signed by: Blayne Avila MD 12/07/2024 09:43 AM EDT RP Elbow X-Ray 12/07/24 09:13 IMPRESSION: No evidence of fracture of the left elbow. Electronically signed by: Blayne Avila MD 12/07/2024 09:44 AM EDT RP Humerus X-Ray 12/07/24 14:02 IMPRESSION: No acute fracture, left humerus. No change Electronically signed by: Raghav Porras MD 12/07/2024 02:14 PM EDT RP Medications Medications Current Medications Acetaminophen (Acetaminophen 325 Mg Tablet) 650 mg PO Q6H PRN PRN Reason: Headache/Pain, Scale 1-10 Last Admin: 12/11/24 20:19 Dose: 650 mg Al Hydroxide/Mg Hydroxide (Magnesium Hydrox/Alum Hydrox 30 Ml Oral.Susp) 30 ml PO Q6H PRN PRN Reason: Heartburn/Nausea Atorvastatin Calcium (Atorvastatin Calcium 80 Mg Tablet) 80 mg PO DAILY [facility] Last Admin: 12/11/24 09:54 Dose: Not Given Bisacodyl (Bisacodyl 10 Mg Supp.Rect) 10 mg [place] DAILY PRN PRN Reason: Constipation Last Admin: 12/08/24 16:44 Dose: 10 mg Clonazepam (Clonazepam Odt 0.125 Mg Tab.Rapdis) 0.125 mg PO TID [facility] Last Admin: 12/11/24 20:19 Dose: 0.125 mg Divalproex Sodium (Divalproex Sodium Sprinkles 125 Mg Cap.Dr.Spr) 125 mg PO BID [facility] Last Admin: 12/11/24 20:19 Dose: 125 mg Finasteride (Finasteride 5 Mg Tablet) 5 mg PO DAILY [facility] Last Admin: 12/11/24 09:54 Dose: Not Given Hydrocortisone (Hydrocortisone 1 % Ointment 28.35 Gm Tube) 1 appl TOPICAL BID [facility]; Protocol Last Admin: 12/11/24 20:23 Dose: Not Given Magnesium Hydroxide (Milk Of Magnesia 30 Ml Oral.Susp) 30 ml PO DAILY PRN PRN Reason: Constipation Melatonin (Melatonin 3 Mg Tablet) 6 mg PO BEDTIME [facility] Last Admin: 12/11/24 20:18 Dose: 6 mg Midodrine (Midodrine Hcl 10 Mg Tablet) 10 mg PO TIDWM [facility] Last Admin: 12/11/24 16:31 Dose: Not Given Mirabegron (Mirabegron 25 Mg Tab.Er.24h) 25 mg PO DAILY [facility] Last Admin: 12/11/24 09:54 Dose: Not Given Mirtazapine (Mirtazapine 15 Mg Tablet) 15 mg PO BEDTIME [facility] Last Admin: 12/11/24 20:18 Dose: 15 mg Omeprazole (Omeprazole 20 Mg Capsule.) 20 mg PO DAILY@0630 [facility] Last Admin: 12/11/24 07:06 Dose: Not Given Risperidone (Risperidone 0.5 Mg Tablet) 0.5 mg PO TID [facility] Last Admin: 12/11/24 20:18 Dose: 0.5 mg Senna (Sennosides 8.6 Mg Tablet) 8.6 mg PO Q12H PRN PRN Reason: Constipation Sodium Biphosphate/Sodium Phosphate (Sodium Phosphate,[place]-Dibasic 133 Ml Enema) 118 ml [place] DAILY PRN PRN Reason: Constipation Tamsulosin HCl (Tamsulosin Hcl 0.4 Mg Capsule) 0.4 mg PO DAILY [facility] Last Admin: 12/11/24 09:54 Dose: Not Given Trazodone HCl (Trazodone Hcl 50 Mg Tablet) 50 mg PO BEDTIME PRN PRN Reason: Insomnia Last Admin: 12/11/24 20:18 Dose: 50 mg Allergies Allergies Allergy/AdvReac Type Severity Reaction Status Date / Time No Known Allergies Allergy Verified 11/30/24 02:25 Assessment & Plan Assessment & Plan (1) Major neurocognitive disorder due to multiple etiologies, with psychotic disturbance: Status: Acute Code(s): F02.82 - Dementia in other diseases classified elsewhere, unspecified severity, with psychotic disturbance (2) Lewy body dementia with psychotic disturbance: Status: Acute Code(s): G31.83 - Neurocognitive disorder with Lewy bodies; F02.82 - Dementia in other diseases classified elsewhere, unspecified severity, with psychotic disturbance Plan Mr. Quintero is a 79 year-old male with hx of Dementia, it does appear to be of Lewy Body with periods of visual hallucinations, autonomic dysfunction, some degree of fluctuation in terms of orientation. HCP has been invoked, he is CV by HCP. Will continue seroquel for now and assess efficacy. PLAN 12/05 d/c seroquel, continue only risperidone. continue to monitor hotn, on midodrine. 12/06 hit head, ordered head CT no new intracraneal bleed. subdural hematoma noted again. continue bladder scans q6h straigh cath if pvr>500cc 12/07 continue tx. added low dose clonazepam 0.125mg po TID. 12/08 continue tx. 12/09 add low dose depakote 125mg PO BID. Note pt has very low albumin level (check free VPA, instead or total). continue risperidone, no EPS noted. Continue low dose of clonazepam. 12/10: no change today 12/11: aggressive, refusing meds - no treatment plan change yet 12/12 increase depakote to 250mg po BID, continue all other medications. Reason for continued inpatient stay Substantial Risk for: inability to function Time Spent With Patient Time: Total time managing care of this patient today ____ minutes.
[2024-12-12] MEDS: clonazePAM ODT 0.125 MG TAB.RAPDIS PO ×2 (11:24→14:54)
[2024-12-12] MEDS: Divalproex Sodium Sprinkles 125 MG CAP.DR.SPR 250 MG PO (11:24)
[2024-12-12 11:45] VITALS: BP 93/55
[2024-12-12 12:20] VITALS: BP 93/55
[2024-12-12] MEDS: Hydrocortisone 1 % Ointment 28.35 GM TUBE 1 APPL TOPICAL (12:49)
--- NOTE | 2024-12-12 17:58 | PC.NURSE ---
Patient woke up late today. He was irritated, agitated, uncooperative. Initially was refusing his am meds then took them late, about 12. Missed one dose of Midodrine. More cooperative at lunch. Eren is refusing 5PM Midodrine/multiple attempts. His BP 87/48. call center assistant Damaris Ureña notified by annie.
--- NOTE | 2024-12-12 18:13 | PC.NURSE ---
Despite multiple attempts to give the Midodrine patient still is refusing, stated to two nurses, he would rather than take the medication.
[2024-12-12 18:21] VITALS: BP 87/48
[2024-12-12 20:00] VITALS: RESP 16
--- NOTE | 2024-12-13 08:28 | P.PNIM_ITS ---
Subjective Subjective Date of Service: 12/13/24 Interval History: Patient is seen for follow up hypo intensive episodes. He has been receiving midodrine t.i.d. continues to run below 100s systolic. No further incidence of urinary retention as patient has Cruz cath in place. On exam he appears to be in no acute distress. Lying in bed. Review of Systems Limited due to participation Physical Exam 2 Exam: Exam: Gen: confused, in NAD Lungs: clear to auscultation bilaterally Heart: regular rate and rhythm, no murmurs Abd: soft, non-tender, non-distended Ext: no edema : Cruz draining clear urine Skin: warm/well-perfused Neuro: disoriented, moves all extremities Psych: Restricted affect, shakes his head to questions Vital Signs: Vital Signs: Last Vital Signs Temp 97.5 F 12/11/24 20:00 Pulse 90 12/11/24 20:00 Resp 16 12/12/24 20:00 BP 87/48 L 12/12/24 18:21 Pulse Ox 98 12/11/24 20:00 O2 Del Method Room Air 12/11/24 20:00 BMI result Body Mass Index 20.2 Objective Data Active Medications Acetaminophen (Acetaminophen 325 Mg Tablet) 650 mg PO Q6H PRN PRN Reason: Headache/Pain, Scale 1-10 Last Admin: 12/11/24 20:19 Dose: 650 mg Documented By: REBECA Al Hydroxide/Mg Hydroxide (Magnesium Hydrox/Alum Hydrox 30 Ml Oral.Susp) 30 ml PO Q6H PRN PRN Reason: Heartburn/Nausea Atorvastatin Calcium (Atorvastatin Calcium 80 Mg Tablet) 80 mg PO DAILY [facility] Last Admin: 12/12/24 11:24 Dose: 80 mg Documented By: EMMETT Bisacodyl (Bisacodyl 10 Mg Supp.Rect) 10 mg [place] DAILY PRN PRN Reason: Constipation Last Admin: 12/08/24 16:44 Dose: 10 mg Documented By: FREDDY Clonazepam (Clonazepam Odt 0.125 Mg Tab.Rapdis) 0.125 mg PO TID [facility] Last Admin: 12/12/24 20:16 Dose: Not Given Documented By: DEMETRIUS Non-Admin Reason: Patient Refused Divalproex Sodium (Divalproex Sodium Sprinkles 125 Mg ) 250 mg PO BID [facility] Last Admin: 12/12/24 20:16 Dose: Not Given Documented By: DEMETRIUS Non-Admin Reason: Patient Refused Finasteride (Finasteride 5 Mg Tablet) 5 mg PO DAILY [facility] Last Admin: 12/12/24 11:24 Dose: 5 mg Documented By: EMMETT Hydrocortisone (Hydrocortisone 1 % Ointment 28.35 Gm Tube) 1 appl TOPICAL BID [facility]; Protocol Last Admin: 12/12/24 20:16 Dose: Not Given Documented By: DEMETRIUS Non-Admin Reason: Patient Refused Magnesium Hydroxide (Milk Of Magnesia 30 Ml Oral.Susp) 30 ml PO DAILY PRN PRN Reason: Constipation Melatonin (Melatonin 3 Mg Tablet) 6 mg PO BEDTIME [facility] Last Admin: 12/12/24 20:16 Dose: Not Given Documented By: DEMETRIUS Non-Admin Reason: Patient Refused Midodrine (Midodrine Hcl 10 Mg Tablet) 10 mg PO TIDWM [facility] Last Admin: 12/12/24 18:21 Dose: Not Given Documented By: ROSA Non-Admin Reason: Refused multiple times; Provider aware. Mirabegron (Mirabegron 25 Mg Tab.Er.24h) 25 mg PO DAILY [facility] Last Admin: 12/12/24 11:24 Dose: 25 mg Documented By: EMMETT Mirtazapine (Mirtazapine 15 Mg Tablet) 15 mg PO BEDTIME [facility] Last Admin: 12/12/24 20:16 Dose: Not Given Documented By: DEMETRIUS Non-Admin Reason: Patient Refused Omeprazole (Omeprazole 20 Mg Capsule.) 20 mg PO DAILY@0630 [facility] Last Admin: 12/13/24 06:23 Dose: Not Given Documented By: DEMETRIUS Non-Admin Reason: Patient Refused Risperidone (Risperidone 0.5 Mg Tablet) 0.5 mg PO TID [facility] Last Admin: 12/12/24 20:17 Dose: Not Given Documented By: DEMETRIUS Non-Admin Reason: Patient Refused Senna (Sennosides 8.6 Mg Tablet) 8.6 mg PO Q12H PRN PRN Reason: Constipation Sodium Biphosphate/Sodium Phosphate (Sodium Phosphate,[place]-Dibasic 133 Ml Enema) 118 ml [place] DAILY PRN PRN Reason: Constipation Tamsulosin HCl (Tamsulosin Hcl 0.4 Mg Capsule) 0.4 mg PO DAILY [facility] Last Admin: 12/12/24 11:24 Dose: 0.4 mg Documented By: EMMETT Trazodone HCl (Trazodone Hcl 50 Mg Tablet) 50 mg PO BEDTIME PRN PRN Reason: Insomnia Last Admin: 12/11/24 20:18 Dose: 50 mg Documented By: REBECA Labs 12/02/24 13:49 12/02/24 13:49 Assessment and Plan (1) BPH (benign prostatic hyperplasia): Status: Acute Plan 79 year old male with vascular dementia, BPH, hypotension, acute on chronic subdural hematoma, GERD admitted to [facility] for further treatment of Dementia with behavioral disturbances. Vascular dementia/Aggression. Treatment per psych team. BPH/Urinary retention Keep Cruz in place Continue Finesteride and Flomax Will need outpatient urology follow up. Continue Myrbetriq for reports of bladder spasms Urine cytology with no malignant cells 11/29/2024 Acute on Chronic subdural hematoma CT scans of the head consistent with old subdural hematoma. Hypotension Continue Midodrine TID Anurag stockings Patient is asymptomatic GERD Continue PPI Thank you for allowing me to participate in the care of this patient. Will follow as needed, please notify medical provider if any acute concerns or issues arise. r Total time managing care of this patient today: 45 minutes. Quality Stroke Does the patient have a stroke diagnosis?: No VTE Prior VTE?: No VTE Risk Level:: Medical - low VTE Device Contraindication: Treatment Not Indicated VTE Drug Contraindication: Treatment Not Indicated
[2024-12-13 09:40] VITALS: BP 75/44; PULSE 76; RESP 16; TEMP 36.4; O2SAT 95
[2024-12-13] MEDS: diazePAM 10 MG/2 ML CARTRIDGE IM (11:17)
[2024-12-13] MEDS: OLANZapine 10 MG VIAL IM (11:26)
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
[2024-12-13 20:00] VITALS: RESP 16
[2024-12-14] MEDS: Divalproex Sodium Sprinkles 125 MG CAP.DR.SPR 250 MG PO (09:41)
[2024-12-14 11:36] VITALS: BP 85/55
[2024-12-14 16:54] VITALS: BP 103/68
--- NOTE | 2024-12-14 17:02 | PC.NURSE ---
Patients , Yesica Quintero cell phone [phone].
--- NOTE | 2024-12-14 19:32 | HO.PSYCHPN ---
Subjective Subjective Date of Service: 12/14/24 Reason For Visit: agitation Subjective Notes: Conditional Voluntary Interim History: Pt initially somewhat irritable, but not combative as yesterday. Initially declined medications, later agreed to take them. He does have back IM per invoked HCP. Pt up for lunch. He is somewhat irritable, but calmer, reports he misses his and children and has not seen them in a long time. He reports he knows he is in [place]. He is not oriented to situation nor month and orientation seems to have some fluctuation. Medication Compliance: Yes Review of Systems Review of Systems Limited due to participation Yes all other systems are reviewed and are negative and Unobtainable due to mental status Diagnostics Vital Signs (24Hr): Vital Signs - 24 hr 12/13/24 20:00 12/14/24 11:36 12/14/24 16:54 Respiratory Rate 16 Blood Pressure 85/55 L 103/68 BMI result Body Mass Index 20.2 Labs 12/02/24 13:49 12/02/24 13:49 Imaging Radiology Impressions: ITS Impressions Clavicle X-Ray 11/30/24 08:08 IMPRESSION: Inferiorly displaced fracture distal right clavicle, probable old. Degenerative changes, right shoulder. Consider calcific tendinosis/tendinopathy, supraspinatus. Electronically signed by: Raghav Porras MD 11/30/2024 09:[address] 12/06/24 10:46 IMPRESSION: Continued evolution of a right frontoparietal subdural hematoma measuring up to 6 mm in thickness with mild mass effect. No intracranial hemorrhage or other acute intracranial abnormality. Electronically signed by: Miguel Ness MD 12/06/2024 11:23 AM EDT RP Elbow X-Ray 12/07/24 09:11 IMPRESSION: No evidence of fracture of the right elbow. Electronically signed by: Blayne Avila MD 12/07/2024 09:43 AM EDT RP Elbow X-Ray 12/07/24 09:13 IMPRESSION: No evidence of fracture of the left elbow. Electronically signed by: Blayne Avila MD 12/07/2024 09:44 AM EDT RP Humerus X-Ray 12/07/24 14:02 IMPRESSION: No acute fracture, left humerus. No change Electronically signed by: Raghav Porras MD 12/07/2024 02:14 PM EDT Medications Medications Current Medications Acetaminophen (Acetaminophen 325 Mg Tablet) 650 mg PO Q6H PRN PRN Reason: Headache/Pain, Scale 1-10 Last Admin: 12/11/24 20:19 Dose: 650 mg Al Hydroxide/Mg Hydroxide (Magnesium Hydrox/Alum Hydrox 30 Ml Oral.Susp) 30 ml PO Q6H PRN PRN Reason: Heartburn/Nausea Atorvastatin Calcium (Atorvastatin Calcium 80 Mg Tablet) 80 mg PO DAILY [facility] Last Admin: 12/14/24 09:42 Dose: 80 mg Bisacodyl (Bisacodyl 10 Mg Supp.Rect) 10 mg [place] DAILY PRN PRN Reason: Constipation Last Admin: 12/08/24 16:44 Dose: 10 mg Diazepam (Diazepam 2 Mg Tablet) 2 mg PO TID [facility] Last Admin: 12/14/24 14:41 Dose: 2 mg Diazepam (Diazepam 10 Mg/2 Ml Cartridge) 5 mg IM BID PRN PRN Reason: if refuses po valium per HCP Divalproex Sodium (Divalproex Sodium Sprinkles 125 Mg Cap.Spr) 250 mg PO BID [facility] Last Admin: 12/14/24 09:41 Dose: 250 mg Finasteride (Finasteride 5 Mg Tablet) 5 mg PO DAILY [facility] Last Admin: 12/14/24 09:40 Dose: 5 mg Fluphenazine HCl (Fluphenazine Hcl 2.5 Mg/Ml 10 Ml Vial) 2 mg IM BID PRN PRN Reason: if refuses oral prolixin Fluphenazine HCl (Fluphenazine Hcl 1 Mg Tablet) 1 mg PO TID [facility] Last Admin: 12/14/24 14:41 Dose: 1 mg Hydrocortisone (Hydrocortisone 1 % Ointment 28.35 Gm Tube) 1 appl TOPICAL BID [facility]; Protocol Last Admin: 12/14/24 11:16 Dose: Not Given Magnesium Hydroxide (Milk Of Magnesia 30 Ml Oral.Susp) 30 ml PO DAILY PRN PRN Reason: Constipation Melatonin (Melatonin 3 Mg Tablet) 6 mg PO BEDTIME [facility] Last Admin: 12/13/24 20:15 Dose: Not Given Midodrine (Midodrine Hcl 10 Mg Tablet) 10 mg PO TIDWM [facility] Last Admin: 12/14/24 16:54 Dose: 10 mg Mirabegron (Mirabegron 25 Mg Tab.Er.24h) 25 mg PO DAILY [facility] Last Admin: 12/14/24 11:17 Dose: 25 mg Mirtazapine (Mirtazapine 15 Mg Tablet) 15 mg PO BEDTIME [facility] Last Admin: 12/13/24 20:16 Dose: Not Given Omeprazole (Omeprazole 20 Mg Capsule.Dr) 20 mg PO DAILY@0630 [facility] Last Admin: 12/14/24 05:38 Dose: Not Given Senna (Sennosides 8.6 Mg Tablet) 8.6 mg PO Q12H PRN PRN Reason: Constipation Sodium Biphosphate/Sodium Phosphate (Sodium Phosphate,[place]-Dibasic 133 Ml Enema) 118 ml [place] DAILY PRN PRN Reason: Constipation Tamsulosin HCl (Tamsulosin Hcl 0.4 Mg Capsule) 0.4 mg PO DAILY [facility] Last Admin: 12/14/24 09:42 Dose: 0.4 mg Trazodone HCl (Trazodone Hcl 50 Mg Tablet) 50 mg PO BEDTIME PRN PRN Reason: Insomnia Last Admin: 12/11/24 20:18 Dose: 50 mg Allergies Allergies Allergy/AdvReac Type Severity Reaction Status Date / Time No Known Allergies Allergy Verified 11/30/24 02:25 Assessment & Plan Assessment & Plan (1) Major neurocognitive disorder due to multiple etiologies, with psychotic disturbance: Status: Acute Code(s): F02.82 - Dementia in other diseases classified elsewhere, unspecified severity, with psychotic disturbance (2) Lewy body dementia with psychotic disturbance: Status: Acute Code(s): G31.83 - Neurocognitive disorder with Lewy bodies; F02.82 - Dementia in other diseases classified elsewhere, unspecified severity, with psychotic disturbance Plan Mr. Quintero is a 79 year-old male with hx of Dementia, it does appear to be of Lewy Body with periods of visual hallucinations, autonomic dysfunction, some degree of fluctuation in terms of orientation. HCP has been invoked, he is CV by HCP. Will continue seroquel for now and assess efficacy. PLAN 12/05 d/c seroquel, continue only risperidone. continue to monitor hotn, on midodrine. 12/06 hit head, ordered head CT no new intracraneal bleed. subdural hematoma noted again. continue bladder scans q6h straigh cath if pvr>500cc 12/07 continue tx. added low dose clonazepam 0.125mg po TID. 12/08 continue tx. 12/09 add low dose depakote 125mg PO BID. Note pt has very low albumin level (check free VPA, instead or total). continue risperidone, no EPS noted. Continue low dose of clonazepam. 12/10: no change today 12/11: aggressive, refusing meds - no treatment plan change yet 12/12 increase depakote to 250mg po BID, continue all other medications. 12/13 change clonazapem for valium 5mg po TID, back IM per HCP. change risperidone for low dose prolixin so he can receive back IM if not taking po per HCP. 12/14 continue tx. appears calmer today. Reason for continued inpatient stay Substantial Risk for: harm to others and inability to function Time Spent With Patient Time: Total time managing care of this patient today ____ minutes.
[2024-12-14 19:47] VITALS: RESP 16
[2024-12-14] MEDS: diazePAM 10 MG/2 ML CARTRIDGE IM (20:55)
[2024-12-15 07:35] VITALS: BP 73/40; PULSE 94; RESP 18; TEMP 37.2; O2SAT 93
[2024-12-15] MEDS: Divalproex Sodium Sprinkles 125 MG CAP.DR.SPR 250 MG PO ×2 (07:37→20:43)
[2024-12-15 07:40] VITALS: BP 86/50
[2024-12-15 08:23] LABS: Anion Gap 8 (12-20); Blood Urea Nitrogen 31 mg/dL (9-16); Calcium 8.3 mg/dL (8.4-10.2); Carbon Dioxide 28 mmol/L (22-29); Chloride 110 mmol/L (96-108); Creatinine Clr Calc Pharmacy 58.7; Estimated Glomerular Filt Rate > 60; Potassium 4.1 mmol/L (3.3-5.1); Sodium 142 mmol/L (135-145)
--- NOTE | 2024-12-15 09:04 | HO.PSYCHPN ---
Subjective Subjective Date of Service: 12/15/24 Reason For Visit: agitation Subjective Notes: Conditional Voluntary Interim History: Pt having some difficulty sleeping. He refused some oral medication, receive IM per HCP. Pt continues to present as combative when direct care and otherwise. He is irritable. He also pulled his kelly. Diagnostics Vital Signs (24Hr): Vital Signs - 24 hr 12/14/24 11:36 12/14/24 16:54 12/14/24 19:47 Temperature Pulse Rate Respiratory Rate 16 Blood Pressure 85/55 L 103/68 Pulse Oximetry Oxygen Delivery Method 12/15/24 07:35 12/15/24 07:40 Temperature 98.9 F Pulse Rate 94 Respiratory Rate 18 Blood Pressure 73/40 L 86/50 L Pulse Oximetry 93 Oxygen Delivery Method Room Air BMI result Body Mass Index 20.2 Labs 12/15/24 12:59 12/15/24 12:59 Labs: Laboratory Results - last 48 hr 12/15/24 07:27 Sodium 142 Potassium 4.1 Chloride 110 H Carbon Dioxide 28 Anion Gap 8 L BUN 31 H Creatinine 0.98 Estim Creat Clear Calc 58.7 Estimated GFR > 60 Random Glucose 98 Calcium 8.3 L Imaging Radiology Impressions: ITS Impressions Clavicle X-Ray 11/30/24 08:08 IMPRESSION: Inferiorly displaced fracture distal right clavicle, probable old. Degenerative changes, right shoulder. Consider calcific tendinosis/tendinopathy, supraspinatus. Electronically signed by: Raghav Porras MD 11/30/2024 09:[address] 12/06/24 10:46 IMPRESSION: Continued evolution of a right frontoparietal subdural hematoma measuring up to 6 mm in thickness with mild mass effect. No intracranial hemorrhage or other acute intracranial abnormality. Electronically signed by: Miguel Ness MD 12/06/2024 11:23 AM EDT RP Elbow X-Ray 12/07/24 09:11 IMPRESSION: No evidence of fracture of the right elbow. Electronically signed by: Blayne Avila MD 12/07/2024 09:43 AM EDT Elbow X-Ray 12/07/24 09:13 IMPRESSION: No evidence of fracture of the left elbow. Electronically signed by: Blayne Avila MD 12/07/2024 09:44 AM EDT RP Humerus X-Ray 12/07/24 14:02 IMPRESSION: No acute fracture, left humerus. No change Electronically signed by: Raghav Porras MD 12/07/2024 02:14 PM EDT RP Medications Medications Current Medications Acetaminophen (Acetaminophen 325 Mg Tablet) 650 mg PO Q6H PRN PRN Reason: Headache/Pain, Scale 1-10 Last Admin: 12/11/24 20:19 Dose: 650 mg Al Hydroxide/Mg Hydroxide (Magnesium Hydrox/Alum Hydrox 30 Ml Oral.Susp) 30 ml PO Q6H PRN PRN Reason: Heartburn/Nausea Atorvastatin Calcium (Atorvastatin Calcium 80 Mg Tablet) 80 mg PO DAILY [facility] Last Admin: 12/15/24 07:37 Dose: 80 mg Bisacodyl (Bisacodyl 10 Mg Supp.Rect) 10 mg [place] DAILY PRN PRN Reason: Constipation Last Admin: 12/08/24 16:44 Dose: 10 mg Diazepam (Diazepam 2 Mg Tablet) 2 mg PO TID [facility] Last Admin: 12/15/24 07:37 Dose: 2 mg Diazepam (Diazepam 10 Mg/2 Ml Cartridge) 5 mg IM BID PRN PRN Reason: if refuses po valium per HCP Divalproex Sodium (Divalproex Sodium Sprinkles 125 Mg Cap.) 250 mg PO BID [facility] Last Admin: 12/15/24 07:37 Dose: 250 mg Finasteride (Finasteride 5 Mg Tablet) 5 mg PO DAILY [facility] Last Admin: 12/15/24 07:36 Dose: 5 mg Fluphenazine HCl (Fluphenazine Hcl 2.5 Mg/Ml 10 Ml Vial) 2 mg IM BID PRN PRN Reason: if refuses oral prolixin Fluphenazine HCl (Fluphenazine Hcl 1 Mg Tablet) 1 mg PO TID [facility] Last Admin: 12/15/24 07:36 Dose: 1 mg Hydrocortisone (Hydrocortisone 1 % Ointment 28.35 Gm Tube) 1 appl TOPICAL BID [facility]; Protocol Last Admin: 12/14/24 20:05 Dose: Not Given Magnesium Hydroxide (Milk Of Magnesia 30 Ml Oral.Susp) 30 ml PO DAILY PRN PRN Reason: Constipation Melatonin (Melatonin 3 Mg Tablet) 6 mg PO BEDTIME [facility] Last Admin: 12/14/24 21:01 Dose: Not Given Midodrine (Midodrine Hcl 10 Mg Tablet) 10 mg PO TIDWM [facility] Last Admin: 12/15/24 07:37 Dose: 10 mg Mirabegron (Mirabegron 25 Mg Tab.Er.24h) 25 mg PO DAILY [facility] Last Admin: 12/15/24 07:36 Dose: 25 mg Mirtazapine (Mirtazapine 15 Mg Tablet) 15 mg PO BEDTIME [facility] Last Admin: 12/14/24 21:01 Dose: Not Given Omeprazole (Omeprazole 20 Mg Capsule.Dr) 20 mg PO DAILY@0630 [facility] Last Admin: 12/15/24 07:37 Dose: 20 mg Senna (Sennosides 8.6 Mg Tablet) 8.6 mg PO Q12H PRN PRN Reason: Constipation Sodium Biphosphate/Sodium Phosphate (Sodium Phosphate,[place]-Dibasic 133 Ml Enema) 118 ml [place] DAILY PRN PRN Reason: Constipation Tamsulosin HCl (Tamsulosin Hcl 0.4 Mg Capsule) 0.4 mg PO DAILY [facility] Last Admin: 12/15/24 07:36 Dose: 0.4 mg Trazodone HCl (Trazodone Hcl 50 Mg Tablet) 50 mg PO BEDTIME PRN PRN Reason: Insomnia Last Admin: 12/11/24 20:18 Dose: 50 mg Allergies Allergies Allergy/AdvReac Type Severity Reaction Status Date / Time No Known Allergies Allergy Verified 11/30/24 02:25 Assessment & Plan Assessment & Plan (1) Major neurocognitive disorder due to multiple etiologies, with psychotic disturbance: Status: Acute Code(s): F02.82 - Dementia in other diseases classified elsewhere, unspecified severity, with psychotic disturbance (2) Lewy body dementia with psychotic disturbance: Status: Acute Code(s): G31.83 - Neurocognitive disorder with Lewy bodies; F02.82 - Dementia in other diseases classified elsewhere, unspecified severity, with psychotic disturbance Plan Mr. Quintero is a 79 year-old male with hx of Dementia, it does appear to be of Lewy Body with periods of visual hallucinations, autonomic dysfunction, some degree of fluctuation in terms of orientation. HCP has been invoked, he is CV by HCP. Will continue seroquel for now and assess efficacy. PLAN 12/05 d/c seroquel, continue only risperidone. continue to monitor hotn, on midodrine. 12/06 hit head, ordered head CT no new intracraneal bleed. subdural hematoma noted again. continue bladder scans q6h straigh cath if pvr>500cc 12/07 continue tx. added low dose clonazepam 0.125mg po TID. 12/08 continue tx. 12/09 add low dose depakote 125mg PO BID. Note pt has very low albumin level (check free VPA, instead or total). continue risperidone, no EPS noted. Continue low dose of clonazepam. 12/10: no change today 12/11: aggressive, refusing meds - no treatment plan change yet 12/12 increase depakote to 250mg po BID, continue all other medications. 12/13 change clonazepam for valium 5mg po TID, back IM per HCP. change risperidone for low dose prolixin so he can receive back IM if not taking po per HCP. 12/14 continue tx. appears calmer today. 12/15 continue tx. Reason for continued inpatient stay Substantial Risk for: inability to function Time Spent With Patient Time: Total time managing care of this patient today ____ minutes.
[2024-12-15] MEDS: Hydrocortisone 1 % Ointment 28.35 GM TUBE 1 APPL TOPICAL (11:30)
[2024-12-15 11:46] VITALS: BP 81/49
[2024-12-15 13:04] LABS: MANUAL DIFF FLAG NO
[2024-12-15 13:13] LABS: Hematocrit 32.4 % (42.0-52.0); Hemoglobin 10.3 g/dl (14.0-18.0); Imm Gran Abs Auto 0.02 X10*3/uL (0.00-0.03); Imm Gran Pct Auto 0.3 % (0.0-0.4); Lymphocytes Absolute Auto 0.9 X10*3/uL (1.2-4.9); Mean Corpuscular HGB Conc 31.8 g/dl (31.0-36.0); Mean Corpuscular Hemoglobin 31.0 pg (27.0-33.0); Mean Corpuscular Volume 97.6 fL (80.0-98.0); NRBC Abs Auto 0.000 X10*3/uL (0.0-0.012); NRBC Pct Auto 0.0 /100WBC (0.0-0.2); Platelet Count 172 X10*3/uL (160-400); Red Blood Count 3.32 X10*6/uL (4.60-5.80); White Blood Count 7.3 X10*3/uL (4.8-10.8)
[2024-12-15 13:28] LABS: Alanine Aminotransferase 31 U/L (0-40); Albumin Level 2.8 g/dL (3.5-5.0); Alkaline Phosphatase 115 U/L (39-117); Anion Gap 8 (12-20); Aspartate Amino Transferase 40 U/L (5-37); Blood Urea Nitrogen 28 mg/dL (9-16); Calcium 8.2 mg/dL (8.4-10.2); Carbon Dioxide 28 mmol/L (22-29); Chloride 109 mmol/L (96-108); Creatinine Clr Calc Pharmacy 63.2; Estimated Glomerular Filt Rate > 60; Potassium 4.1 mmol/L (3.3-5.1); Sodium 141 mmol/L (135-145); Total Protein 6.2 g/dL (6.5-8.0)
[2024-12-15 13:29] LABS: Appearance Urine Turbid; Glucose Urine UA Negative (Negative); PH 7.0 (5.0-9.0); Specific Gravity - Urine 1.020 (1.005-1.025); UMIC TRIGGER UACC YES
[2024-12-15 14:13] LABS: UACC Culture Trigger YES
[2024-12-15 15:32] VITALS: BP 75/50
[2024-12-15 20:00] VITALS: BP 90/60; PULSE 93; RESP 16; TEMP 36.9; O2SAT 97
--- NOTE | 2024-12-16 09:59 | PC.NURSE ---
Refused all vitals this morning, has been making frequent trips to the bathroom and he did allow me to bladder scan and I obtain 84ml via scan. He also refused to take any meds.
--- NOTE | 2024-12-16 10:03 | HO.PM.IMPN ---
Subjective Subjective Date of Service: 12/16/24 Interval History: Patient pulled out his Cruz catheter overnight. Per staff he is refusing to allow catheter to be replaced. Staff reports that despite securing catheter and having a one-to-one sitter with the patient he is still pulls out his catheter. He is OOB to BR with assist. Patient continues with hypotension. Refused medications today. Refusing most care. Review of Systems Limited due to patient cooperation Physical Exam Exam: Exam: CONST: Alert and confused, in NAD. Thin HEENT: Normocephalic, atraumatic, MMM RESP: RRR even and regular HEART: No edema GI:Declined :Deferred SKIN: Skin tears to bilateral hands. fragile skin NEURO:Ambulating at baseline, Speech clear PSYCH: Agitated affect Vital Signs: Vital Signs: Last Vital Signs Temp 98.4 F 12/15/24 20:00 Pulse 93 12/15/24 20:00 Resp 16 12/15/24 20:00 BP 90/60 12/15/24 20:00 Pulse Ox 97 12/15/24 20:00 O2 Del Method Room Air 12/15/24 20:00 BMI result Body Mass Index 20.2 Objective Data Active Medications Acetaminophen (Acetaminophen 325 Mg Tablet) 650 mg PO Q6H PRN PRN Reason: Headache/Pain, Scale 1-10 Last Admin: 12/11/24 20:19 Dose: 650 mg Documented By: REBECA Al Hydroxide/Mg Hydroxide (Magnesium Hydrox/Alum Hydrox 30 Ml Oral.Susp) 30 ml PO Q6H PRN PRN Reason: Heartburn/Nausea Atorvastatin Calcium (Atorvastatin Calcium 80 Mg Tablet) 80 mg PO DAILY [facility] Last Admin: 12/15/24 07:37 Dose: 80 mg Documented By: EMMETT Bisacodyl (Bisacodyl 10 Mg Supp.Rect) 10 mg [place] DAILY PRN PRN Reason: Constipation Last Admin: 12/08/24 16:44 Dose: 10 mg Documented By: FREDDY Cefuroxime Axetil (Cefuroxime Axetil 250 Mg Tablet) 250 mg PO Q12H [facility] Last Admin: 12/16/24 06:16 Dose: 250 mg Documented By: DEMETRIUS Diazepam (Diazepam 2 Mg Tablet) 2 mg PO TID [facility] Last Admin: 12/15/24 20:43 Dose: 2 mg Documented By: DEMETRIUS Diazepam (Diazepam 10 Mg/2 Ml Cartridge) 5 mg IM BID PRN PRN Reason: if refuses po valium per HCP Divalproex Sodium (Divalproex Sodium Sprinkles 125 Mg ) 250 mg PO BID [facility] Last Admin: 12/15/24 20:43 Dose: 250 mg Documented By: DEMETRIUS Finasteride (Finasteride 5 Mg Tablet) 5 mg PO DAILY [facility] Last Admin: 12/15/24 07:36 Dose: 5 mg Documented By: EMMETT Fluphenazine HCl (Fluphenazine Hcl 2.5 Mg/Ml 10 Ml Vial) 2 mg IM BID PRN PRN Reason: if refuses oral prolixin Fluphenazine HCl (Fluphenazine Hcl 1 Mg Tablet) 2 mg PO TID [facility] Hydrocortisone (Hydrocortisone 1 % Ointment 28.35 Gm Tube) 1 appl TOPICAL BID [facility]; Protocol Last Admin: 12/15/24 20:44 Dose: Not Given Documented By: DEMETRIUS Non-Admin Reason: Patient Refused Magnesium Hydroxide (Milk Of Magnesia 30 Ml Oral.Susp) 30 ml PO DAILY PRN PRN Reason: Constipation Melatonin (Melatonin 3 Mg Tablet) 6 mg PO BEDTIME [facility] Last Admin: 12/15/24 20:43 Dose: 6 mg Documented By: DEMETRIUS Midodrine (Midodrine Hcl 10 Mg Tablet) 10 mg PO TIDWM [facility] Last Admin: 12/15/24 15:45 Dose: 10 mg Documented By: EMMETT Mirabegron (Mirabegron 25 Mg Tab.Er.24h) 25 mg PO DAILY [facility] Last Admin: 12/15/24 07:36 Dose: 25 mg Documented By: EMMETT Mirtazapine (Mirtazapine 15 Mg Tablet) 15 mg PO BEDTIME [facility] Last Admin: 12/15/24 20:43 Dose: 15 mg Documented By: DEMETRIUS Olanzapine (Olanzapine 5 Mg Tablet) 5 mg PO Q6H PRN PRN Reason: agitation Omeprazole (Omeprazole 20 Mg ) 20 mg PO DAILY@0630 [facility] Last Admin: 12/15/24 07:37 Dose: 20 mg Documented By: EMMETT Senna (Sennosides 8.6 Mg Tablet) 8.6 mg PO Q12H PRN PRN Reason: Constipation Sodium Biphosphate/Sodium Phosphate (Sodium Phosphate,[place]-Dibasic 133 Ml Enema) 118 ml [place] DAILY PRN PRN Reason: Constipation Tamsulosin HCl (Tamsulosin Hcl 0.4 Mg Capsule) 0.4 mg PO DAILY [facility] Last Admin: 12/15/24 07:36 Dose: 0.4 mg Documented By: EMMETT Trazodone HCl (Trazodone Hcl 50 Mg Tablet) 50 mg PO BEDTIME PRN PRN Reason: Insomnia Last Admin: 12/11/24 20:18 Dose: 50 mg Documented By: REBECA Labs 12/15/24 12:59 12/15/24 12:59 Labs: Laboratory Results - last 24 hr 12/15/24 12/15/24 12:59 13:10 MCV 97.6 MCH 31.0 MCHC 31.8 RDW 14.4 Plt Count 172 D MPV 9.9 Immature Gran % (Auto) 0.3 Neut % (Auto) 77.0 H Lymph % (Auto) 12.4 L [place] % (Auto) 6.8 Eos % (Auto) 3.0 Baso % (Auto) 0.5 Lymph # (Auto) 0.9 L [place] # (Auto) 0.5 Eos # (Auto) 0.2 Baso # (Auto) 0.0 Abs Immat Gran (auto) 0.02 Absolute Neuts (auto) 5.7 Absolute Nucleated RBC 0.000 Nucleated RBC % (auto) 0.0 Anion Gap 8 L Estim Creat Clear Calc 63.2 Estimated GFR > 60 Random Glucose 116 H Calcium 8.2 L Total Bilirubin 0.4 AST 40 H ALT 31 Alkaline Phosphatase 115 Total Protein 6.2 L Albumin 2.8 L Urine Color Yellow Urine Appearance Turbid Urine pH 7.0 Ur Specific [place] 1.020 Urine Protein 100 (2+) H Urine Glucose (UA) Negative Urine Ketones Trace Urine Blood Moderate (2+) H Urine Nitrite Negative Ur Leukocyte Esterase Large (3+) H Urine RBC 3-5 H Urine WBC >50 H Ur Squamous Epith Cells 0-2 Calcium Oxalate Crystal Present Urine Bacteria 2+ Hyaline Casts 6-10 Assessment and Plan (1) BPH (benign prostatic hyperplasia): Status: Acute Plan 79 year old male with vascular dementia, BPH, hypotension, acute on chronic subdural hematoma, GERD admitted to [facility] for further treatment of Dementia with behavioral disturbances. Vascular dementia/Aggression. Treatment per psych team. BPH/Urinary retention Patient frequently removing catheter despite 1:1 Continue Finesteride and Flomax Will need outpatient urology follow up. Continue Myrbetriq for reports of bladder spasms Urine cytology with no malignant cells 11/29/2024 Bladder scan Q 6 hours and SC greater than 350 cc Acute on Chronic subdural hematoma CT scans of the head consistent with old subdural hematoma. Hypotension Continue Midodrine TID, Add Florinef 0.1 mgs daily Anurag stockings Patient is asymptomatic. Despite midodrine, BP's consistently low. Obtain EDHO, Random cortisol level Nephrology to see GERD Continue PPI Thank you for allowing me to participate in the care of this patient. Will follow as needed, please notify medical provider if any acute concerns or issues arise. Quality Stroke Does the patient have a stroke diagnosis?: No VTE Prior VTE?: No VTE Risk Level:: Medical - low VTE Device Contraindication: Treatment Not Indicated VTE Drug Contraindication: Treatment Not Indicated
--- NOTE | 2024-12-16 12:42 | PM.CNNEP ---
History of Present Illness Reason for Consult Consult date: 12/16/24 Chief Complaint Chief complaint: agitation History of Present Illness Narrative: 79 y/o male with a history of lewey body and vascular dementia, here with acute agitation/hallucinations since 12/02. Nephrology consulted for ongoing hypotension despite midodrine 10mg PO TID. patient is awake, alert, walking around his room, states he feels fine and denies shortness of breath, denies dizziness/lightheadedness- refuses to answer additional history/ROS questions. he states he has had 26 sips of fluid today, unclear how much he is drinking. Review of Systems Review of Systems Yes all other systems are reviewed and are negative and Unobtainable due to mental condition PMFSH Past Medical History Medical History Subdural hematoma BPH (benign prostatic hyperplasia) Vascular dementia Social History Social History Household Members: Other Housing: [facility] Do you presently have visiting nurse or other home services: No Comment: 1:1 Patient Tobacco Use Status: Never used Tobacco Smoked in Last 30 Days: Yes e-Cigarette/Vaping Use: Never Used Use of substances other than those prescribed or required for medical reasons: No Currently Displaying Signs/Symptoms of Drug Intoxication Withdrawal: No Have you been hit, kicked, punched, or otherwise hurt by someone within the past year? If so, by whom?: No Do you feel safe in your current relationship?: Yes Is there a partner from a previous relationship who is making you feel unsafe now?: No Are you made to feel afraid or neglected: No Advance Directives: No Advance Directives Information Provided: Yes Advance Directives Date on File: 11/21/24 Do you have thoughts of harming others: None Do you have a plan to hurt others: No Plan Recently lost weight without trying: Unsure service: Yes Sexual orientation: Straight/Heterosexual Meds Allergies Allergy/AdvReac Type Severity Reaction Status Date / Time No Known Allergies Allergy Verified 11/30/24 02:25 Active Medications: Current Medications Acetaminophen (Acetaminophen 325 Mg Tablet) 650 mg PO Q6H PRN PRN Reason: Headache/Pain, Scale 1-10 Last Admin: 12/11/24 20:19 Dose: 650 mg Al Hydroxide/Mg Hydroxide (Magnesium Hydrox/Alum Hydrox 30 Ml Oral.Susp) 30 ml PO Q6H PRN PRN Reason: Heartburn/Nausea Atorvastatin Calcium (Atorvastatin Calcium 80 Mg Tablet) 80 mg PO DAILY [facility] Last Admin: 12/15/24 07:37 Dose: 80 mg Bisacodyl (Bisacodyl 10 Mg Supp.Rect) 10 mg [place] DAILY PRN PRN Reason: Constipation Last Admin: 12/08/24 16:44 Dose: 10 mg Cefuroxime Axetil (Cefuroxime Axetil 250 Mg Tablet) 250 mg PO Q12H [facility] Last Admin: 12/16/24 06:16 Dose: 250 mg Diazepam (Diazepam 2 Mg Tablet) 2 mg PO TID [facility] Last Admin: 12/15/24 20:43 Dose: 2 mg Diazepam (Diazepam 10 Mg/2 Ml Cartridge) 5 mg IM BID PRN PRN Reason: if refuses po valium per HCP Divalproex Sodium (Divalproex Sodium Sprinkles 125 Mg Cap.Spr) 250 mg PO BID [facility] Last Admin: 12/15/24 20:43 Dose: 250 mg Finasteride (Finasteride 5 Mg Tablet) 5 mg PO DAILY [facility] Last Admin: 12/15/24 07:36 Dose: 5 mg Fludrocortisone Acetate (Fludrocortisone Acetate 0.1 Mg Tablet) 0.1 mg PO DAILY [facility] Fluphenazine HCl (Fluphenazine Hcl 2.5 Mg/Ml 10 Ml Vial) 2 mg IM BID PRN PRN Reason: if refuses oral prolixin Fluphenazine HCl (Fluphenazine Hcl 1 Mg Tablet) 2 mg PO TID [facility] Hydrocortisone (Hydrocortisone 1 % Ointment 28.35 Gm Tube) 1 appl TOPICAL BID [facility]; Protocol Last Admin: 12/16/24 11:58 Dose: Not Given Magnesium Hydroxide (Milk Of Magnesia 30 Ml Oral.Susp) 30 ml PO DAILY PRN PRN Reason: Constipation Melatonin (Melatonin 3 Mg Tablet) 6 mg PO BEDTIME [facility] Last Admin: 12/15/24 20:43 Dose: 6 mg Midodrine (Midodrine Hcl 10 Mg Tablet) 10 mg PO TIDWM [facility] Last Admin: 12/16/24 12:04 Dose: Not Given Mirabegron (Mirabegron 25 Mg Tab.Er.24h) 25 mg PO DAILY [facility] Last Admin: 12/15/24 07:36 Dose: 25 mg Mirtazapine (Mirtazapine 15 Mg Tablet) 15 mg PO BEDTIME [facility] Last Admin: 12/15/24 20:43 Dose: 15 mg Olanzapine (Olanzapine 5 Mg Tablet) 5 mg PO Q6H PRN PRN Reason: agitation Omeprazole (Omeprazole 20 Mg Capsule.Dr) 20 mg PO DAILY@0630 [facility] Last Admin: 12/15/24 07:37 Dose: 20 mg Senna (Sennosides 8.6 Mg Tablet) 8.6 mg PO Q12H PRN PRN Reason: Constipation Sodium Biphosphate/Sodium Phosphate (Sodium Phosphate,[place]-Dibasic 133 Ml Enema) 118 ml [place] DAILY PRN PRN Reason: Constipation Tamsulosin HCl (Tamsulosin Hcl 0.4 Mg Capsule) 0.4 mg PO DAILY [facility] Last Admin: 12/15/24 07:36 Dose: 0.4 mg Trazodone HCl (Trazodone Hcl 50 Mg Tablet) 50 mg PO BEDTIME PRN PRN Reason: Insomnia Last Admin: 12/11/24 20:18 Dose: 50 mg Home Medications ?Medication ?Instructions ?Recorded ?Confirmed ?Last Taken ?Type acetaminophen 325 mg tablet 650 mg PO Q4H PRN Pain 11/21/24 11/30/24 Unknown History acetaminophen 325 mg tablet 650 mg PO Q6H PRN Fever 11/21/24 11/30/24 Unknown History atorvastatin 80 mg tablet 80 mg PO DAILY 11/21/24 11/30/24 Unknown History bisacodyl 10 mg rectal suppository 10 mg [place] DAILY PRN Constipation 11/21/24 11/30/24 Unknown History hydrocortisone 1 % topical 1 appl topical BID 11/21/24 11/30/24 Unknown History ointment (Cortizone-10) magnesium hydroxide 400 mg/5 mL 30 ml PO DAILY PRN Constipation 11/21/24 11/30/24 Unknown History oral suspension (Milk of Magnesia) melatonin 3 mg tablet 6 mg PO BEDTIME 11/21/24 11/30/24 Unknown History menthol 5 % topical patch (Icy Hot 1 patch topical DAILY 11/21/24 11/30/24 Unknown History (menthol)) midodrine 5 mg tablet 10 mg PO TID 11/21/24 11/30/24 11/21/24 History mirtazapine 15 mg tablet 7.5 mg PO BEDTIME 11/21/24 11/30/24 Unknown History pantoprazole 40 mg tablet,delayed 40 mg PO DAILY@0630 11/21/24 11/30/24 11/21/24 History release (Protonix) sennosides 8.6 mg tablet (Senna 8.6 mg PO Q12H PRN Constipation 11/21/24 11/30/24 Unknown History Lax) sodium phosphates 19 gram-7 118 ml [place] DAILY PRN Constipation 11/21/24 11/30/24 Unknown History gram/118 mL enema (Fleet Enema) tamsulosin 0.4 mg capsule (Flomax) 0.4 mg PO DAILY 11/21/24 11/30/24 11/21/24 History Physical Exam Vital Signs: Last Vital Signs Temp 98.4 F 12/15/24 20:00 Pulse 93 12/15/24 20:00 Resp 16 12/15/24 20:00 BP 90/60 12/15/24 20:00 Pulse Ox 97 12/15/24 20:00 O2 Del Method Room Air 12/15/24 20:00 BMI result Body Mass Index 20.2 Const Other: Patient only permitted me to assess for LE edema, declined remaining physical exam. Mucous membranes appear dry while he is speaking. General: no acute distress, alert and awake Extrem General: No edema Results Lab Results 12/15/24 12:59 12/15/24 12:59 Lab results: Chemistry 12/15/24 12/15/24 07:27 12:59 Sodium 142 141 Potassium 4.1 4.1 Carbon Dioxide 28 28 BUN 31 H 28 H Creatinine 0.98 0.91 Calcium 8.3 L 8.2 L Hematology 12/15/24 12:59 WBC 7.3 Hgb 10.3 L Plt Count 172 D Urinalysis 12/15/24 13:10 Urine Color Yellow Urine Appearance Turbid Urine pH 7.0 Ur Specific [place] 1.020 Urine Protein 100 (2+) H Urine Glucose (UA) Negative Urine Ketones Trace Urine Blood Moderate (2+) H Urine Nitrite Negative Ur Leukocyte Esterase Large (3+) H Urine RBC 3-5 H Urine WBC >50 H Ur Squamous Epith Cells 0-2 Hyaline Casts 6-10 Assessment and Plan (1) Hypotension: Status: Acute Plan Hypotension, appears to be asymtomatic. recommend continuing midodrine 10mg PO TID, add florinef 0.1mg PO daily recommend getting an echocardiogram to assess for heart failure recommend serum cortisol level may consider adjusting some psychiatric medications that have potential to cause hypotension if he becomes symptomatic. encourage oral hydration, pt appears dry. recommend regular blood pressure checks recommend avoiding nephrotoxins continue supportive care Discussed with Dr Wasserman. Procedures Date of Service Date of Service: 12/16/24
[2024-12-16] MEDS: diazePAM 10 MG/2 ML CARTRIDGE 5 MG IM ×3 (12:43→21:46)
--- NOTE | 2024-12-16 15:55 | HO.PSYCHPN ---
Subjective Subjective Date of Service: 12/16/24 Reason For Visit: agitation Subjective Notes: Conditional Voluntary Interim History: Pt having some difficulty sleeping. He refused some oral medication, receive IM per HCP. Pt continues to present as combative when direct care and otherwise. He is irritable. He also pulled his kelly. Review of Systems Review of Systems Limited due to patient cooperation Yes all other systems are reviewed and are negative, Unobtainable due to mental condition and Unobtainable due to mental status Mental Status Exam Mental Status Exam Narrative: Appearance: wearing hospital gown, fair hygiene, in NAD Behavior: Intermittently agitated Psychomotor: Intermittently agitated Speech: mostly clear, normal rate/rhythm/volume, spontaneous TP: mostly linear TC: Mood: alright Affect: congruent SI: denies HI: denies VH/AH: no overt signs but per he has on and off Delusions: no delusional content reported Insight/judgment: impaired x 2. Memory/cog: alert, knows he is in a hospital, not exactly which one but this seems to fluctuate, not oriented to month nor year. severe inability to retain new information and remember events leading to this admission. Diagnostics Vital Signs (24Hr): Vital Signs - 24 hr 12/15/24 20:00 Temperature 98.4 F Pulse Rate 93 Respiratory Rate 16 Blood Pressure 90/60 Pulse Oximetry 97 Oxygen Delivery Method Room Air BMI result Body Mass Index 20.2 Labs 12/15/24 12:59 12/15/24 12:59 Labs: Laboratory Results - last 48 hr 12/15/24 12/15/24 12/15/24 07:27 12:59 13:10 WBC 7.3 RBC 3.32 L Hgb 10.3 L Hct 32.4 L MCV 97.6 MCH 31.0 MCHC 31.8 RDW 14.4 Plt Count 172 D MPV 9.9 Immature Gran % (Auto) 0.3 Neut % (Auto) 77.0 H Lymph % (Auto) 12.4 L [place] % (Auto) 6.8 Eos % (Auto) 3.0 Baso % (Auto) 0.5 Lymph # (Auto) 0.9 L [place] # (Auto) 0.5 Eos # (Auto) 0.2 Baso # (Auto) 0.0 Abs Immat Gran (auto) 0.02 Absolute Neuts (auto) 5.7 Absolute Nucleated RBC 0.000 Nucleated RBC % (auto) 0.0 Sodium 142 141 Potassium 4.1 4.1 Chloride 110 H 109 H Carbon Dioxide 28 28 Anion Gap 8 L 8 L BUN 31 H 28 H Creatinine 0.98 0.91 Estim Creat Clear Calc 58.7 63.2 Estimated GFR > 60 > 60 Random Glucose 98 116 H Calcium 8.3 L 8.2 L Total Bilirubin 0.4 AST 40 H ALT 31 Alkaline Phosphatase 115 Total Protein 6.2 L Albumin 2.8 L Random Cortisol Urine Color Yellow Urine Appearance Turbid Urine pH 7.0 Ur Specific [place] 1.020 Urine Protein 100 (2+) H Urine Glucose (UA) Negative Urine Ketones Trace Urine Blood Moderate (2+) H Urine Nitrite Negative Ur Leukocyte Esterase Large (3+) H Urine RBC 3-5 H Urine WBC >50 H Ur Squamous Epith Cells 0-2 Calcium Oxalate Crystal Present Urine Bacteria 2+ Hyaline Casts 6-10 12/16/24 13:22 WBC RBC Hgb Hct MCV MCH MCHC RDW Plt Count MPV Immature Gran % (Auto) Neut % (Auto) Lymph % (Auto) [place] % (Auto) Eos % (Auto) Baso % (Auto) Lymph # (Auto) [place] # (Auto) Eos # (Auto) Baso # (Auto) Abs Immat Gran (auto) Absolute Neuts (auto) Absolute Nucleated RBC Nucleated RBC % (auto) Sodium Potassium Chloride Carbon Dioxide Anion Gap BUN Creatinine Estim Creat Clear Calc Estimated GFR Random Glucose Calcium Total Bilirubin AST ALT Alkaline Phosphatase Total Protein Albumin Random Cortisol 10.2 Urine Color Urine Appearance Urine pH Ur Specific [place] Urine Protein Urine Glucose (UA) Urine Ketones Urine Blood Urine Nitrite Ur Leukocyte Esterase Urine RBC Urine WBC Ur Squamous Epith Cells Calcium Oxalate Crystal Urine Bacteria Hyaline Casts Imaging Radiology Impressions: ITS Impressions Clavicle X-Ray 11/30/24 08:08 IMPRESSION: Inferiorly displaced fracture distal right clavicle, probable old. Degenerative changes, right shoulder. Consider calcific tendinosis/tendinopathy, supraspinatus. Electronically signed by: Raghav Porras MD 11/30/2024 09:28 AM EDT RP Head CT 12/06/24 10:46 IMPRESSION: Continued evolution of a right frontoparietal subdural hematoma measuring up to 6 mm in thickness with mild mass effect. No intracranial hemorrhage or other acute intracranial abnormality. Electronically signed by: Miguel Ness MD 12/06/2024 11:23 AM EDT RP Elbow X-Ray 12/07/24 09:11 IMPRESSION: No evidence of fracture of the right elbow. Electronically signed by: Blayne Avila MD 12/07/2024 09:43 AM EDT RP Elbow X-Ray 12/07/24 09:13 IMPRESSION: No evidence of fracture of the left elbow. Electronically signed by: Blayne Avila MD 12/07/2024 09:44 AM EDT RP Humerus X-Ray 12/07/24 14:02 IMPRESSION: No acute fracture, left humerus. No change Electronically signed by: Raghav Porras MD 12/07/2024 02:14 PM EDT RP Medications Medications Current Medications Acetaminophen (Acetaminophen 325 Mg Tablet) 650 mg PO Q6H PRN PRN Reason: Headache/Pain, Scale 1-10 Last Admin: 12/11/24 20:19 Dose: 650 mg Al Hydroxide/Mg Hydroxide (Magnesium Hydrox/Alum Hydrox 30 Ml Oral.Susp) 30 ml PO Q6H PRN PRN Reason: Heartburn/Nausea Atorvastatin Calcium (Atorvastatin Calcium 80 Mg Tablet) 80 mg PO DAILY [facility] Last Admin: 12/16/24 12:39 Dose: Not Given Bisacodyl (Bisacodyl 10 Mg Supp.Rect) 10 mg [place] DAILY PRN PRN Reason: Constipation Last Admin: 12/08/24 16:44 Dose: 10 mg Cefuroxime Axetil (Cefuroxime Axetil 250 Mg Tablet) 250 mg PO Q12H [facility] Last Admin: 12/16/24 06:16 Dose: 250 mg Diazepam (Diazepam 2 Mg Tablet) 2 mg PO TID [facility] Last Admin: 12/16/24 15:13 Dose: Not Given Diazepam (Diazepam 10 Mg/2 Ml Cartridge) 5 mg IM BID PRN PRN Reason: if refuses po valium per HCP Last Admin: 12/16/24 15:17 Dose: 5 mg Divalproex Sodium (Divalproex Sodium Sprinkles 125 Mg ) 250 mg PO BID [facility] Last Admin: 12/16/24 12:39 Dose: Not Given Finasteride (Finasteride 5 Mg Tablet) 5 mg PO DAILY [facility] Last Admin: 12/16/24 12:39 Dose: Not Given Fludrocortisone Acetate (Fludrocortisone Acetate 0.1 Mg Tablet) 0.1 mg PO DAILY [facility] Last Admin: 12/16/24 14:06 Dose: 0.1 mg Fluphenazine HCl (Fluphenazine Hcl 2.5 Mg/Ml 10 Ml Vial) 2 mg IM BID PRN PRN Reason: if refuses oral prolixin Last Admin: 12/16/24 15:15 Dose: 2 mg Fluphenazine HCl (Fluphenazine Hcl 1 Mg Tablet) 2 mg PO TID [facility] Last Admin: 12/16/24 15:13 Dose: Not Given Hydrocortisone (Hydrocortisone 1 % Ointment 28.35 Gm Tube) 1 appl TOPICAL BID [facility]; Protocol Last Admin: 12/16/24 11:58 Dose: Not Given Magnesium Hydroxide (Milk Of Magnesia 30 Ml Oral.Susp) 30 ml PO DAILY PRN PRN Reason: Constipation Melatonin (Melatonin 3 Mg Tablet) 6 mg PO BEDTIME [facility] Last Admin: 12/15/24 20:43 Dose: 6 mg Midodrine (Midodrine Hcl 10 Mg Tablet) 10 mg PO TIDWM [facility] Last Admin: 12/16/24 12:41 Dose: Not Given Mirabegron (Mirabegron 25 Mg Tab.Er.24h) 25 mg PO DAILY [facility] Last Admin: 12/16/24 12:40 Dose: Not Given Mirtazapine (Mirtazapine 15 Mg Tablet) 15 mg PO BEDTIME [facility] Last Admin: 12/15/24 20:43 Dose: 15 mg Olanzapine (Olanzapine 5 Mg Tablet) 5 mg PO Q6H PRN PRN Reason: agitation Omeprazole (Omeprazole 20 Mg Capsule.Dr) 20 mg PO DAILY@0630 [facility] Last Admin: 12/15/24 07:37 Dose: 20 mg Senna (Sennosides 8.6 Mg Tablet) 8.6 mg PO Q12H PRN PRN Reason: Constipation Sodium Biphosphate/Sodium Phosphate (Sodium Phosphate,[place]-Dibasic 133 Ml Enema) 118 ml [place] DAILY PRN PRN Reason: Constipation Tamsulosin HCl (Tamsulosin Hcl 0.4 Mg Capsule) 0.4 mg PO DAILY [facility] Last Admin: 12/16/24 12:40 Dose: Not Given Trazodone HCl (Trazodone Hcl 50 Mg Tablet) 50 mg PO BEDTIME PRN PRN Reason: Insomnia Last Admin: 12/11/24 20:18 Dose: 50 mg Allergies Allergies Allergy/AdvReac Type Severity Reaction Status Date / Time No Known Allergies Allergy Verified 11/30/24 02:25 Assessment & Plan Assessment & Plan (1) Major neurocognitive disorder due to multiple etiologies, with psychotic disturbance: Status: Acute Code(s): F02.82 - Dementia in other diseases classified elsewhere, unspecified severity, with psychotic disturbance (2) Lewy body dementia with psychotic disturbance: Status: Acute Code(s): G31.83 - Neurocognitive disorder with Lewy bodies; F02.82 - Dementia in other diseases classified elsewhere, unspecified severity, with psychotic disturbance Plan Mr. Quintero is a 79 year-old male with hx of Dementia, it does appear to be of Lewy Body with periods of visual hallucinations, autonomic dysfunction, some degree of fluctuation in terms of orientation. HCP has been invoked, he is CV by HCP. Will continue seroquel for now and assess efficacy. PLAN 12/05 d/c seroquel, continue only risperidone. continue to monitor hotn, on midodrine. 12/06 hit head, ordered head CT no new intracraneal bleed. subdural hematoma noted again. continue bladder scans q6h straigh cath if pvr>500cc 12/07 continue tx. added low dose clonazepam 0.125mg po TID. 12/08 continue tx. 12/09 add low dose depakote 125mg PO BID. Note pt has very low albumin level (check free VPA, instead or total). continue risperidone, no EPS noted. Continue low dose of clonazepam. 12/10: no change today 12/11: aggressive, refusing meds - no treatment plan change yet 12/12 increase depakote to 250mg po BID, continue all other medications. 12/13 change clonazepam for valium 5mg po TID, back IM per HCP. change risperidone for low dose prolixin so he can receive back IM if not taking po per HCP. 12/14 continue tx. appears calmer today. 12/15 continue tx. 12/16 continue tx. Reason for continued inpatient stay Substantial Risk for: inability to function Time Spent With Patient Time: Total time managing care of this patient today ____ minutes.
--- NOTE | 2024-12-16 18:18 | PC.NURSE ---
Continued to refuse his oral meds, he has been voiding frequenlty on the toilet. His bladder scans have been 84,30,13, so cathing not necessary. He has refused all meals and fluids today as well.
[2024-12-16 20:00] VITALS: BP 97/60; RESP 16
[2024-12-17 09:02] VITALS: BP 97/52; PULSE 84; RESP 18; TEMP 36.4; O2SAT 97
[2024-12-17] MEDS: diazePAM 10 MG/2 ML CARTRIDGE 5 MG IM (11:18)
--- NOTE | 2024-12-17 14:48 | P.PNPSI_ITS ---
Subjective Subjective Date of Service: 12/17/24 Reason For Visit: agitation Interim History: Met with patient; discussed with team; chart review remains intermittently combative and today hit [facility]. Refusing all meds. Has been having very little fluid intake over past 2 days so will get labs Patient's nurse, Etelvina Gleason reviewed microbiology and aligner typewriter agrees that current antibiotic should likely be changed given sensitivities; hospitalist consult place Ampicillin is sensitive and comes in IM; Mental Status Exam Mental Status Exam Narrative: Appearance: wearing hospital gown, fair hygiene, in NAD Behavior: Intermittently agitated Psychomotor: Intermittently agitated Speech: mostly clear, normal rate/rhythm/volume, spontaneous TP: mostly linear TC:various things, not much expressed Mood: irritable Affect: congruent SI: denies HI: denies VH/AH: no overt signs Delusions: no delusional content reported Insight/judgment: impaired Diagnostics Vital Signs (24Hr): Vital Signs - 24 hr 12/16/24 20:00 12/17/24 09:02 Temperature 97.6 F Pulse Rate 84 Respiratory Rate 16 18 Blood Pressure 97/60 97/52 L Pulse Oximetry 97 Oxygen Delivery Method Room Air BMI result Body Mass Index 20.2 Labs 12/15/24 12:59 12/17/24 16:25 Labs: Laboratory Results - last 48 hr 12/16/24 13:22 Random Cortisol 10.2 Imaging Radiology Impressions: ITS Impressions Clavicle X-Ray 11/30/24 08:08 IMPRESSION: Inferiorly displaced fracture distal right clavicle, probable old. Degenerative changes, right shoulder. Consider calcific tendinosis/tendinopathy, supraspinatus. Electronically signed by: Raghav Porras MD 11/30/2024 09:28 AM EDT RP Head CT 12/06/24 10:46 IMPRESSION: Continued evolution of a right frontoparietal subdural hematoma measuring up to 6 mm in thickness with mild mass effect. No intracranial hemorrhage or other acute intracranial abnormality. Electronically signed by: Miguel Ness MD 12/06/2024 11:23 AM EDT RP Elbow X-Ray 12/07/24 09:11 IMPRESSION: No evidence of fracture of the right elbow. Electronically signed by: Blayne Avila MD 12/07/2024 09:43 AM EDT RP Elbow X-Ray 12/07/24 09:13 IMPRESSION: No evidence of fracture of the left elbow. Electronically signed by: Blayne Avila MD 12/07/2024 09:44 AM EDT RP Humerus X-Ray 12/07/24 14:02 IMPRESSION: No acute fracture, left humerus. No change Electronically signed by: Raghav Porras MD 12/07/2024 02:14 PM EDT RP Medications Medications Current Medications Acetaminophen (Acetaminophen 325 Mg Tablet) 650 mg PO Q6H PRN PRN Reason: Headache/Pain, Scale 1-10 Last Admin: 12/11/24 20:19 Dose: 650 mg Al Hydroxide/Mg Hydroxide (Magnesium Hydrox/Alum Hydrox 30 Ml Oral.Susp) 30 ml PO Q6H PRN PRN Reason: Heartburn/Nausea Atorvastatin Calcium (Atorvastatin Calcium 80 Mg Tablet) 80 mg PO DAILY [facility] Last Admin: 12/17/24 11:29 Dose: Not Given Bisacodyl (Bisacodyl 10 Mg Supp.Rect) 10 mg [place] DAILY PRN PRN Reason: Constipation Last Admin: 12/08/24 16:44 Dose: 10 mg Cefuroxime Axetil (Cefuroxime Axetil 250 Mg Tablet) 250 mg PO Q12H [facility] Last Admin: 12/17/24 06:04 Dose: 250 mg Diazepam (Diazepam 2 Mg Tablet) 2 mg PO TID [facility] Last Admin: 12/17/24 11:29 Dose: Not Given Diazepam (Diazepam 10 Mg/2 Ml Cartridge) 5 mg IM TID PRN PRN Reason: if refuses po valium per HCP Last Admin: 12/17/24 11:18 Dose: 5 mg Divalproex Sodium (Divalproex Sodium Sprinkles 125 Mg [place].) 250 mg PO BID [facility] Last Admin: 12/17/24 11:29 Dose: Not Given Finasteride (Finasteride 5 Mg Tablet) 5 mg PO DAILY [facility] Last Admin: 12/17/24 11:29 Dose: Not Given Fludrocortisone Acetate (Fludrocortisone Acetate 0.1 Mg Tablet) 0.1 mg PO DAILY [facility] Last Admin: 12/17/24 11:29 Dose: Not Given Fluphenazine HCl (Fluphenazine Hcl 1 Mg Tablet) 2 mg PO TID [facility] Last Admin: 12/17/24 11:29 Dose: Not Given Fluphenazine HCl (Fluphenazine Hcl 2.5 Mg/Ml 10 Ml Vial) 2 mg IM TID PRN PRN Reason: if refuses oral prolixin Last Admin: 12/17/24 11:18 Dose: 2 mg Hydrocortisone (Hydrocortisone 1 % Ointment 28.35 Gm Tube) 1 appl TOPICAL BID [facility]; Protocol Last Admin: 12/17/24 11:36 Dose: Not Given Magnesium Hydroxide (Milk Of Magnesia 30 Ml Oral.Susp) 30 ml PO DAILY PRN PRN Reason: Constipation Melatonin (Melatonin 3 Mg Tablet) 6 mg PO BEDTIME [facility] Last Admin: 12/16/24 21:37 Dose: Not Given Midodrine (Midodrine Hcl 10 Mg Tablet) 10 mg PO TIDWM [facility] Last Admin: 12/17/24 11:30 Dose: Not Given Mirabegron (Mirabegron 25 Mg Tab.Er.24h) 25 mg PO DAILY [facility] Last Admin: 12/17/24 11:29 Dose: Not Given Mirtazapine (Mirtazapine 15 Mg Tablet) 15 mg PO BEDTIME [facility] Last Admin: 12/16/24 21:37 Dose: Not Given Olanzapine (Olanzapine 5 Mg Tablet) 5 mg PO Q6H PRN PRN Reason: agitation Omeprazole (Omeprazole 20 Mg Capsule.Dr) 20 mg PO DAILY@0630 [facility] Last Admin: 12/17/24 06:04 Dose: 20 mg Senna (Sennosides 8.6 Mg Tablet) 8.6 mg PO Q12H PRN PRN Reason: Constipation Sodium Biphosphate/Sodium Phosphate (Sodium Phosphate,[place]-Dibasic 133 Ml Enema) 118 ml [place] DAILY PRN PRN Reason: Constipation Tamsulosin HCl (Tamsulosin Hcl 0.4 Mg Capsule) 0.4 mg PO DAILY [facility] Last Admin: 12/17/24 11:30 Dose: Not Given Trazodone HCl (Trazodone Hcl 50 Mg Tablet) 50 mg PO BEDTIME PRN PRN Reason: Insomnia Last Admin: 12/11/24 20:18 Dose: 50 mg Allergies Allergies Allergy/AdvReac Type Severity Reaction Status Date / Time No Known Allergies Allergy Verified 11/30/24 02:25 Assessment & Plan Assessment & Plan (1) Major neurocognitive disorder due to multiple etiologies, with psychotic disturbance: Status: Acute Code(s): F02.82 - Dementia in other diseases classified elsewhere, unspecified severity, with psychotic disturbance (2) Lewy body dementia with psychotic disturbance: Status: Acute Code(s): G31.83 - Neurocognitive disorder with Lewy bodies; F02.82 - Dementia in other diseases classified elsewhere, unspecified severity, with psychotic disturbance Plan Mr. Quintero is a 79 year-old male with hx of Dementia, it does appear to be of Lewy Body with periods of visual hallucinations, autonomic dysfunction, some degree of fluctuation in terms of orientation. HCP has been invoked, he is CV by HCP. Will continue seroquel for now and assess efficacy. PLAN 12/05 d/c seroquel, continue only risperidone. continue to monitor hotn, on midodrine. 12/06 hit head, ordered head CT no new intracraneal bleed. subdural hematoma noted again. continue bladder scans q6h straigh cath if pvr>500cc 12/07 continue tx. added low dose clonazepam 0.125mg po TID. 12/08 continue tx. 12/09 add low dose depakote 125mg PO BID. Note pt has very low albumin level (check free VPA, instead or total). continue risperidone, no EPS noted. Continue low dose of clonazepam. 12/10: no change today 12/11: aggressive, refusing meds - no treatment plan change yet 12/12 increase depakote to 250mg po BID, continue all other medications. 12/13 change clonazepam for valium 5mg po TID, back IM per HCP. change risperidone for low dose prolixin so he can receive back IM if not taking po per HCP. 12/14 continue tx. appears calmer today. 12/15 continue tx. 12/16 continue tx. 12/17 remains intermittently combative and today hit [facility]. Refusing all meds. Has been having very little fluid intake over past 2 days so will get labs -Patient's nurse, Etelvina Gleason reviewed microbiology and aligner typewriter agrees that current antibiotic should likely be changed given sensitivities; hospitalist consult placed DC Ceftin (not indicated) START Ampicillin 500mg q6h for 10 days (Ampicillin is sensitive and comes in IM) Informed Consent: does not understand Reason for continued inpatient stay Substantial Risk for: inability to function Time Spent With Patient Time: Total time managing care of this patient today ____ minutes.
[2024-12-17 16:50] VITALS: BP 85/52
[2024-12-17 18:56] LABS: Alanine Aminotransferase 29 U/L (0-40); Albumin Level 2.9 g/dL (3.5-5.0); Alkaline Phosphatase 105 U/L (39-117); Anion Gap 9 (12-20); Aspartate Amino Transferase 42 U/L (5-37); Blood Urea Nitrogen 16 mg/dL (9-16); Calcium 8.3 mg/dL (8.4-10.2); Carbon Dioxide 27 mmol/L (22-29); Chloride 110 mmol/L (96-108); Creatinine Clr Calc Pharmacy 70.2; Estimated Glomerular Filt Rate > 60; Potassium 3.8 mmol/L (3.3-5.1); Sodium 142 mmol/L (135-145); Total Protein 6.6 g/dL (6.5-8.0)
[2024-12-17 20:00] VITALS: BP 87/60; PULSE 77; RESP 16; TEMP 36.2; O2SAT 97
[2024-12-18 08:00] VITALS: BP 96/54; PULSE 74; RESP 15; TEMP 36.1; O2SAT 97
[2024-12-18] MEDS: diazePAM 10 MG/2 ML CARTRIDGE 5 MG IM ×3 (11:39→21:34)
--- NOTE | 2024-12-18 16:53 | HO.PSYCHPN ---
Subjective Subjective Date of Service: 12/18/24 Reason For Visit: agitation Interim History: Met with patient; discussed with team no change in presentation Mental Status Exam Mental Status Exam Narrative: Appearance: wearing hospital gown, fair hygiene, in NAD Behavior: Intermittently agitated Psychomotor: Intermittently agitated Speech: mostly clear, normal rate/rhythm/volume, spontaneous TP: mostly linear TC:various things, not much expressed Mood: irritable Affect: congruent SI: denies HI: denies VH/AH: no overt signs Delusions: no delusional content reported Insight/judgment: impaired Diagnostics Vital Signs (24Hr): Vital Signs - 24 hr 12/17/24 20:00 12/18/24 08:00 Temperature 97.2 F 97.0 F Pulse Rate 77 74 Respiratory Rate 16 15 Blood Pressure 87/60 L 96/54 L Pulse Oximetry 97 97 Oxygen Delivery Method Room Air Room Air BMI result Body Mass Index 20.2 Labs 12/15/24 12:59 12/17/24 16:25 Labs: Laboratory Results - last 48 hr 12/17/24 16:25 Sodium 142 Potassium 3.8 Chloride 110 H Carbon Dioxide 27 Anion Gap 9 L BUN 16 Creatinine 0.82 Estim Creat Clear Calc 70.2 Estimated GFR > 60 Random Glucose 115 Calcium 8.3 L Total Bilirubin 0.6 AST 42 H ALT 29 Alkaline Phosphatase 105 Total Protein 6.6 Albumin 2.9 L Imaging Radiology Impressions: ITS Impressions Clavicle X-Ray 11/30/24 08:08 IMPRESSION: Inferiorly displaced fracture distal right clavicle, probable old. Degenerative changes, right shoulder. Consider calcific tendinosis/tendinopathy, supraspinatus. Electronically signed by: Raghav Porras MD 11/30/2024 09:28 AM EDT RP Head CT 12/06/24 10:46 IMPRESSION: Continued evolution of a right frontoparietal subdural hematoma measuring up to 6 mm in thickness with mild mass effect. No intracranial hemorrhage or other acute intracranial abnormality. Electronically signed by: Miguel Ness MD 12/06/2024 11:23 AM EDT RP Elbow X-Ray 12/07/24 09:11 IMPRESSION: No evidence of fracture of the right elbow. Electronically signed by: Blayne Avila MD 12/07/2024 09:43 AM EDT RP Elbow X-Ray 12/07/24 09:13 IMPRESSION: No evidence of fracture of the left elbow. Electronically signed by: Blayne Avila MD 12/07/2024 09:44 AM EDT RP Humerus X-Ray 12/07/24 14:02 IMPRESSION: No acute fracture, left humerus. No change Electronically signed by: Raghav Porras MD 12/07/2024 02:14 PM EDT RP Medications Medications Current Medications Acetaminophen (Acetaminophen 325 Mg Tablet) 650 mg PO Q6H PRN PRN Reason: Headache/Pain, Scale 1-10 Last Admin: 12/11/24 20:19 Dose: 650 mg Al Hydroxide/Mg Hydroxide (Magnesium Hydrox/Alum Hydrox 30 Ml Oral.Susp) 30 ml PO Q6H PRN PRN Reason: Heartburn/Nausea Ampicillin Sodium (Ampicillin Sodium 500 Mg Vial) 500 mg IM Q6H [facility] Stop: 12/27/24 16:59 Last Admin: 12/18/24 15:35 Dose: 500 mg Atorvastatin Calcium (Atorvastatin Calcium 80 Mg Tablet) 80 mg PO DAILY [facility] Last Admin: 12/18/24 10:58 Dose: Not Given Bisacodyl (Bisacodyl 10 Mg Supp.Rect) 10 mg SC DAILY PRN PRN Reason: Constipation Last Admin: 12/08/24 16:44 Dose: 10 mg Diazepam (Diazepam 2 Mg Tablet) 2 mg PO TID [facility] Last Admin: 12/18/24 10:58 Dose: Not Given Diazepam (Diazepam 10 Mg/2 Ml Cartridge) 5 mg IM TID PRN PRN Reason: if refuses po valium per HCP Last Admin: 12/18/24 11:39 Dose: 5 mg Divalproex Sodium (Divalproex Sodium Sprinkles 125 Mg ) 250 mg PO BID [facility] Last Admin: 12/18/24 10:58 Dose: Not Given Finasteride (Finasteride 5 Mg Tablet) 5 mg PO DAILY [facility] Last Admin: 12/18/24 10:58 Dose: Not Given Fludrocortisone Acetate (Fludrocortisone Acetate 0.1 Mg Tablet) 0.1 mg PO DAILY [facility] Last Admin: 12/18/24 10:58 Dose: Not Given Fluphenazine HCl (Fluphenazine Hcl 1 Mg Tablet) 2 mg PO TID [facility] Last Admin: 12/18/24 10:59 Dose: Not Given Fluphenazine HCl (Fluphenazine Hcl 2.5 Mg/Ml 10 Ml Vial) 2 mg IM TID PRN PRN Reason: if refuses oral prolixin Last Admin: 12/18/24 11:39 Dose: 2 mg Hydrocortisone (Hydrocortisone 1 % Ointment 28.35 Gm Tube) 1 appl TOPICAL BID [facility]; Protocol Last Admin: 12/18/24 10:59 Dose: Not Given Magnesium Hydroxide (Milk Of Magnesia 30 Ml Oral.Susp) 30 ml PO DAILY PRN PRN Reason: Constipation Melatonin (Melatonin 3 Mg Tablet) 6 mg PO BEDTIME [facility] Last Admin: 12/17/24 21:01 Dose: 6 mg Midodrine (Midodrine Hcl 10 Mg Tablet) 10 mg PO TIDWM [facility] Last Admin: 12/18/24 15:03 Dose: Not Given Mirabegron (Mirabegron 25 Mg Tab.Er.24h) 25 mg PO DAILY [facility] Last Admin: 12/18/24 10:59 Dose: Not Given Mirtazapine (Mirtazapine 15 Mg Tablet) 15 mg PO BEDTIME [facility] Last Admin: 12/17/24 21:01 Dose: 15 mg Olanzapine (Olanzapine 5 Mg Tablet) 5 mg PO Q6H PRN PRN Reason: agitation Omeprazole (Omeprazole 20 Mg Capsule.Dr) 20 mg PO DAILY@0630 [facility] Last Admin: 12/18/24 06:13 Dose: Not Given Senna (Sennosides 8.6 Mg Tablet) 8.6 mg PO Q12H PRN PRN Reason: Constipation Sodium Biphosphate/Sodium Phosphate (Sodium Phosphate,[place]-Dibasic 133 Ml Enema) 118 ml SC DAILY PRN PRN Reason: Constipation Tamsulosin HCl (Tamsulosin Hcl 0.4 Mg Capsule) 0.4 mg PO DAILY [facility] Last Admin: 12/18/24 10:59 Dose: Not Given Trazodone HCl (Trazodone Hcl 50 Mg Tablet) 50 mg PO BEDTIME PRN PRN Reason: Insomnia Last Admin: 12/11/24 20:18 Dose: 50 mg Allergies Allergies Allergy/AdvReac Type Severity Reaction Status Date / Time No Known Allergies Allergy Verified 11/30/24 02:25 Assessment & Plan Assessment & Plan (1) Major neurocognitive disorder due to multiple etiologies, with psychotic disturbance: Status: Acute Code(s): F02.82 - Dementia in other diseases classified elsewhere, unspecified severity, with psychotic disturbance (2) Lewy body dementia with psychotic disturbance: Status: Acute Code(s): G31.83 - Neurocognitive disorder with Lewy bodies; F02.82 - Dementia in other diseases classified elsewhere, unspecified severity, with psychotic disturbance Plan Mr. Quintero is a 79 year-old male with hx of Dementia, it does appear to be of Lewy Body with periods of visual hallucinations, autonomic dysfunction, some degree of fluctuation in terms of orientation. HCP has been invoked, he is CV by HCP. Will continue seroquel for now and assess efficacy. PLAN 12/05 d/c seroquel, continue only risperidone. continue to monitor hotn, on midodrine. 12/06 hit head, ordered head CT no new intracraneal bleed. subdural hematoma noted again. continue bladder scans q6h straigh cath if pvr>500cc 12/07 continue tx. added low dose clonazepam 0.125mg po TID. 12/08 continue tx. 12/09 add low dose depakote 125mg PO BID. Note pt has very low albumin level (check free VPA, instead or total). continue risperidone, no EPS noted. Continue low dose of clonazepam. 12/10: no change today 12/11: aggressive, refusing meds - no treatment plan change yet 12/12 increase depakote to 250mg po BID, continue all other medications. 12/13 change clonazepam for valium 5mg po TID, back IM per HCP. change risperidone for low dose prolixin so he can receive back IM if not taking po per HCP. 12/14 continue tx. appears calmer today. 12/15 continue tx. 12/16 continue tx. 12/17 remains intermittently combative and today hit [facility]. Refusing all meds. -Has been having very little fluid intake over past 2 days so will get labs -Patient's nurse, Etelvina Gleason reviewed microbiology and lead technical writer agrees that current antibiotic should likely be changed given sensitivities; hospitalist consult placed PLAN: -DC Ceftin (not indicated) -START Ampicillin 500mg q6h for 10 days (Ampicillin is sensitive and comes in IM) 12/18 same presentation Bun/Cr grossly WNL Continue Ampicillin 500mg q6h for 10 days (Ampicillin is sensitive and comes in IM) Reason for continued inpatient stay Substantial Risk for: inability to function Time Spent With Patient Time: Total time managing care of this patient today ____ minutes.
[2024-12-18 20:00] VITALS: BP 99/60; PULSE 89; RESP 16; TEMP 36.3; O2SAT 93
--- NOTE | 2024-12-19 08:29 | HO.PM.IMPN ---
Subjective Subjective Date of Service: 12/19/24 Interval History: Patient was seen and examined, per nursing he has not had breakfast this morning. Appetite has been poor over the weekend. He has been refusing several medications including his midodrine he will Valium Depakote. Patient has been receiving Valium IM as well as fluphenazine IM. Patient is receiving IM injections 6 times daily. Also received ampicillin IM x4 doses for Enterococcus faecalis UTI that grew out on culture. He has been afebrile, no leukocytosis and no tachycardia. Psychiatry team is following closely. Review of Systems Unable to participate in review of systems due to mental status Physical Exam Exam: Exam: CONST: Alert when aroused, in NAD. Thin HEENT: Normocephalic, atraumatic, dry mucosa RESP: Lungs clear, RRR even and regular HEART:,RRR, S1, S2. No murmur, no edema GI:Abdomen Soft NT, ND. + BS times four :Deferred SKIN: Warm dry and intact, no visible lesions or rashes NEURO: Moves all extremities PSYCH: Confused, lying in bed Vital Signs: Vital Signs: Last Vital Signs Temp 97.4 F 12/18/24 20:00 Pulse 89 12/18/24 20:00 Resp 16 12/18/24 20:00 BP 99/60 12/18/24 20:00 Pulse Ox 93 12/18/24 20:00 O2 Del Method Room Air 12/18/24 20:00 BMI result Body Mass Index 20.2 Objective Data Active Medications Acetaminophen (Acetaminophen 325 Mg Tablet) 650 mg PO Q6H PRN PRN Reason: Headache/Pain, Scale 1-10 Last Admin: 12/11/24 20:19 Dose: 650 mg Documented By: REBECA Al Hydroxide/Mg Hydroxide (Magnesium Hydrox/Alum Hydrox 30 Ml Oral.Susp) 30 ml PO Q6H PRN PRN Reason: Heartburn/Nausea Ampicillin Sodium (Ampicillin Sodium 500 Mg Vial) 500 mg IM Q6H [facility] Stop: 12/27/24 16:59 Last Admin: 12/19/24 01:57 Dose: 500 mg Documented By: DEMETRIUS Atorvastatin Calcium (Atorvastatin Calcium 80 Mg Tablet) 80 mg PO DAILY [facility] Last Admin: 12/18/24 10:58 Dose: Not Given Documented By: EVIE Non-Admin Reason: Patient Refused Bisacodyl (Bisacodyl 10 Mg Supp.Rect) 10 mg AR DAILY PRN PRN Reason: Constipation Last Admin: 12/08/24 16:44 Dose: 10 mg Documented By: FREDDY Diazepam (Diazepam 2 Mg Tablet) 2 mg PO TID [facility] Last Admin: 12/18/24 21:36 Dose: Not Given Documented By: DEMETRIUS Non-Admin Reason: Patient Refused Diazepam (Diazepam 10 Mg/2 Ml Cartridge) 5 mg IM TID PRN PRN Reason: if refuses po valium per HCP Last Admin: 12/18/24 21:34 Dose: 5 mg Documented By: DEMETRIUS Divalproex Sodium (Divalproex Sodium Sprinkles 125 Mg Camron.) 250 mg PO BID [facility] Last Admin: 12/18/24 20:59 Dose: Not Given Documented By: DEMETRIUS Non-Admin Reason: Patient Refused Finasteride (Finasteride 5 Mg Tablet) 5 mg PO DAILY [facility] Last Admin: 12/18/24 10:58 Dose: Not Given Documented By: EVIE Non-Admin Reason: Patient Refused Fludrocortisone Acetate (Fludrocortisone Acetate 0.1 Mg Tablet) 0.1 mg PO DAILY [facility] Last Admin: 12/18/24 10:58 Dose: Not Given Documented By: EVIE Non-Admin Reason: Patient Refused Fluphenazine HCl (Fluphenazine Hcl 1 Mg Tablet) 2 mg PO TID [facility] Last Admin: 12/18/24 20:58 Dose: Not Given Documented By: DEMETRIUS Non-Admin Reason: Patient Refused Fluphenazine HCl (Fluphenazine Hcl 2.5 Mg/Ml 10 Ml Vial) 2 mg IM TID PRN PRN Reason: if refuses oral prolixin Last Admin: 12/18/24 21:35 Dose: 2 mg Documented By: DEMETRIUS Hydrocortisone (Hydrocortisone 1 % Ointment 28.35 Gm Tube) 1 appl TOPICAL BID [facility]; Protocol Last Admin: 12/18/24 20:58 Dose: Not Given Documented By: DEMETRIUS Non-Admin Reason: Patient Refused Magnesium Hydroxide (Milk Of Magnesia 30 Ml Oral.Susp) 30 ml PO DAILY PRN PRN Reason: Constipation Melatonin (Melatonin 3 Mg Tablet) 6 mg PO BEDTIME [facility] Last Admin: 12/18/24 20:59 Dose: Not Given Documented By: DEMETRIUS Non-Admin Reason: Patient Refused Midodrine (Midodrine Hcl 10 Mg Tablet) 10 mg PO TIDWM [facility] Last Admin: 12/18/24 17:30 Dose: Not Given Documented By: EVIE Non-Admin Reason: Patient Refused Mirabegron (Mirabegron 25 Mg Tab.Er.24h) 25 mg PO DAILY [facility] Last Admin: 12/18/24 10:59 Dose: Not Given Documented By: EVIE Non-Admin Reason: Patient Refused Mirtazapine (Mirtazapine 15 Mg Tablet) 15 mg PO BEDTIME [facility] Last Admin: 12/18/24 20:50 Dose: 15 mg Documented By: DEMETRIUS Olanzapine (Olanzapine 5 Mg Tablet) 5 mg PO Q6H PRN PRN Reason: agitation Omeprazole (Omeprazole 20 Mg Capsule.Dr) 20 mg PO DAILY@0630 [facility] Last Admin: 12/19/24 06:52 Dose: Not Given Documented By: PETER Non-Admin Reason: Patient Refused Senna (Sennosides 8.6 Mg Tablet) 8.6 mg PO Q12H PRN PRN Reason: Constipation Sodium Biphosphate/Sodium Phosphate (Sodium Phosphate,[place]-Dibasic 133 Ml Enema) 118 ml AR DAILY PRN PRN Reason: Constipation Tamsulosin HCl (Tamsulosin Hcl 0.4 Mg Capsule) 0.4 mg PO DAILY [facility] Last Admin: 12/18/24 10:59 Dose: Not Given Documented By: EVIE Non-Admin Reason: Patient Refused Trazodone HCl (Trazodone Hcl 50 Mg Tablet) 50 mg PO BEDTIME PRN PRN Reason: Insomnia Last Admin: 12/11/24 20:18 Dose: 50 mg Documented By: REBECA Aguirre 12/15/24 12:59 12/17/24 16:25 Assessment and Plan (1) BPH (benign prostatic hyperplasia): Status: Acute Plan 79 year old male with vascular dementia, BPH, hypotension, acute on chronic subdural hematoma, GERD admitted to [facility] for further treatment of Dementia with behavioral disturbances. Vascular dementia/Aggression. Treatment per psych team. Patient is receiving 6 IM injections daily due to refusal of oral medications. Patient continues to decline, not eating or drinking BPH/Urinary retention Patient has been voiding at times, still requiring intermittent catheterizing Continue Finesteride and Flomax, patient has been refusing Will need outpatient urology follow up. Urine cytology with no malignant cells 11/29/2024 Bladder scan Q 6 hours and SC greater than 350 es Patient with a positive urine culture for greater than 100,000 of Enterococcus faecalis, was given ampicillin q.i.d. IM. We will DC this due to patient has been afebrile no tachycardia no evidence of infection. Most likely colonized Would not recommend any further urine cultures unless there are clear signs and symptoms that localized to the urinary tract Avoid treating asymptomatic bacteriuria Acute on Chronic subdural hematoma CT scans of the head consistent with old subdural hematoma. No acute neurological change indicating need for repeat head CT Hypotension Continue Midodrine TID, per nephrology increase to Florinef 0.2 mgs daily - has been refusing Anurag stockings Despite midodrine, BP's consistently low. Refused ECHO, Random cortisol level refused Nephrology following GERD Continue PPI- Has beem refusing Thank you for allowing me to participate in the care of this patient. Will follow as needed, please notify medical provider if any acute concerns or issues arise. Quality Stroke Does the patient have a stroke diagnosis?: No VTE Prior VTE?: No VTE Risk Level:: Medical - low VTE Device Contraindication: Treatment Not Indicated VTE Drug Contraindication: Treatment Not Indicated
--- NOTE | 2024-12-19 08:43 | P.PNPSI_ITS ---
Subjective Subjective Date of Service: 12/19/24 Reason For Visit: agitation Subjective Notes: Conditional Voluntary Healthcare Proxy: Yes Interim History: Pt slept 7hrs. He refused most medications over the weekend. He received back IM for medications that can be administered this way including valium, prolixin. Urine culture positive for entero. fecaelis- had been started on ampicillin IM over the weekend. Hospitalist saw pt this morning, concern in terms of number of IM in day he is receiving. He presents as irritable, resistant to care by staff and no awareness of fall risk, insisting on doing things on his own. He had some difficulty getting out of bed on his own. weaker, physically. pending labs including CMP, CBC, given reports from RN that urine looked dark in color. He has had decreased oral intake in the past 2 days, declining meals. Limited amount of fluids. Medication Compliance: No Side effects from medications: No Attending Groups: No Mental Status Exam Mental Status Exam Narrative: Appearance: wearing hospital gown, fair hygiene, in NAD Behavior: Intermittently agitated Psychomotor: Intermittently agitated Speech: mostly clear, normal rate/rhythm/volume, spontaneous TP: mostly linear TC:various things, not much expressed Mood: irritable Affect: congruent SI: denies HI: denies VH/AH: no overt signs Delusions: no delusional content reported Insight/judgment: impaired Diagnostics Vital Signs (24Hr): Vital Signs - 24 hr 12/18/24 20:00 Temperature 97.4 F Pulse Rate 89 Respiratory Rate 16 Blood Pressure 99/60 Pulse Oximetry 93 Oxygen Delivery Method Room Air BMI result Body Mass Index 20.2 Labs 12/15/24 12:59 12/17/24 16:25 Labs: Laboratory Results - last 48 hr 12/17/24 16:25 Sodium 142 Potassium 3.8 Chloride 110 H Carbon Dioxide 27 Anion Gap 9 L BUN 16 Creatinine 0.82 Estim Creat Clear Calc 70.2 Estimated GFR > 60 Random Glucose 115 Calcium 8.3 L Total Bilirubin 0.6 AST 42 H ALT 29 Alkaline Phosphatase 105 Total Protein 6.6 Albumin 2.9 L Imaging Radiology Impressions: ITS Impressions Clavicle X-Ray 11/30/24 08:08 IMPRESSION: Inferiorly displaced fracture distal right clavicle, probable old. Degenerative changes, right shoulder. Consider calcific tendinosis/tendinopathy, supraspinatus. Electronically signed by: Raghav Porras MD 11/30/2024 09:28 AM EDT RP Head CT 12/06/24 10:46 IMPRESSION: Continued evolution of a right frontoparietal subdural hematoma measuring up to 6 mm in thickness with mild mass effect. No intracranial hemorrhage or other acute intracranial abnormality. Electronically signed by: Miguel Ness MD 12/06/2024 11:23 AM EDT RP Elbow X-Ray 12/07/24 09:11 IMPRESSION: No evidence of fracture of the right elbow. Electronically signed by: Blayne Avila MD 12/07/2024 09:43 AM EDT RP Elbow X-Ray 12/07/24 09:13 IMPRESSION: No evidence of fracture of the left elbow. Electronically signed by: Blayne Avila MD 12/07/2024 09:44 AM EDT RP Humerus X-Ray 12/07/24 14:02 IMPRESSION: No acute fracture, left humerus. No change Electronically signed by: Raghav Porras MD 12/07/2024 02:14 PM EDT RP Medications Medications Current Medications Acetaminophen (Acetaminophen 325 Mg Tablet) 650 mg PO Q6H PRN PRN Reason: Headache/Pain, Scale 1-10 Last Admin: 12/11/24 20:19 Dose: 650 mg Al Hydroxide/Mg Hydroxide (Magnesium Hydrox/Alum Hydrox 30 Ml Oral.Susp) 30 ml PO Q6H PRN PRN Reason: Heartburn/Nausea Atorvastatin Calcium (Atorvastatin Calcium 80 Mg Tablet) 80 mg PO DAILY [facility] Last Admin: 12/18/24 10:58 Dose: Not Given Bisacodyl (Bisacodyl 10 Mg Supp.Rect) 10 mg [place] DAILY PRN PRN Reason: Constipation Last Admin: 12/08/24 16:44 Dose: 10 mg Cephalexin HCl (Cephalexin 500 Mg Capsule) 500 mg PO Q6H [facility] Stop: 12/24/24 08:44 Diazepam (Diazepam 2 Mg Tablet) 2 mg PO TID [facility] Last Admin: 12/18/24 21:36 Dose: Not Given Diazepam (Diazepam 10 Mg/2 Ml Cartridge) 5 mg IM TID PRN PRN Reason: if refuses po valium per HCP Last Admin: 12/18/24 21:34 Dose: 5 mg Divalproex Sodium (Divalproex Sodium Sprinkles 125 Mg ) 250 mg PO BID [facility] Last Admin: 12/18/24 20:59 Dose: Not Given Finasteride (Finasteride 5 Mg Tablet) 5 mg PO DAILY [facility] Last Admin: 12/18/24 10:58 Dose: Not Given Fludrocortisone Acetate (Fludrocortisone Acetate 0.1 Mg Tablet) 0.1 mg PO DAILY [facility] Last Admin: 12/18/24 10:58 Dose: Not Given Fluphenazine HCl (Fluphenazine Hcl 1 Mg Tablet) 2 mg PO TID [facility] Last Admin: 12/18/24 20:58 Dose: Not Given Fluphenazine HCl (Fluphenazine Hcl 2.5 Mg/Ml 10 Ml Vial) 2 mg IM TID PRN PRN Reason: if refuses oral prolixin Last Admin: 12/18/24 21:35 Dose: 2 mg Hydrocortisone (Hydrocortisone 1 % Ointment 28.35 Gm Tube) 1 appl TOPICAL BID [facility]; Protocol Last Admin: 12/18/24 20:58 Dose: Not Given Magnesium Hydroxide (Milk Of Magnesia 30 Ml Oral.Susp) 30 ml PO DAILY PRN PRN Reason: Constipation Melatonin (Melatonin 3 Mg Tablet) 6 mg PO BEDTIME [facility] Last Admin: 12/18/24 20:59 Dose: Not Given Midodrine (Midodrine Hcl 10 Mg Tablet) 10 mg PO TIDWM [facility] Last Admin: 12/18/24 17:30 Dose: Not Given Mirabegron (Mirabegron 25 Mg Tab.Er.24h) 25 mg PO DAILY [facility] Last Admin: 12/18/24 10:59 Dose: Not Given Mirtazapine (Mirtazapine 15 Mg Tablet) 15 mg PO BEDTIME [facility] Last Admin: 12/18/24 20:50 Dose: 15 mg Olanzapine (Olanzapine 5 Mg Tablet) 5 mg PO Q6H PRN PRN Reason: agitation Omeprazole (Omeprazole 20 Mg Capsule.) 20 mg PO DAILY@0630 [facility] Last Admin: 12/19/24 06:52 Dose: Not Given Senna (Sennosides 8.6 Mg Tablet) 8.6 mg PO Q12H PRN PRN Reason: Constipation Sodium Biphosphate/Sodium Phosphate (Sodium Phosphate,[place]-Dibasic 133 Ml Enema) 118 ml [place] DAILY PRN PRN Reason: Constipation Tamsulosin HCl (Tamsulosin Hcl 0.4 Mg Capsule) 0.4 mg PO DAILY [facility] Last Admin: 12/18/24 10:59 Dose: Not Given Trazodone HCl (Trazodone Hcl 50 Mg Tablet) 50 mg PO BEDTIME PRN PRN Reason: Insomnia Last Admin: 12/11/24 20:18 Dose: 50 mg Allergies Allergies Allergy/AdvReac Type Severity Reaction Status Date / Time No Known Allergies Allergy Verified 11/30/24 02:25 Assessment & Plan Assessment & Plan (1) Major neurocognitive disorder due to multiple etiologies, with psychotic disturbance: Status: Acute Code(s): F02.82 - Dementia in other diseases classified elsewhere, unspecified severity, with psychotic disturbance (2) Lewy body dementia with psychotic disturbance: Status: Acute Code(s): G31.83 - Neurocognitive disorder with Lewy bodies; F02.82 - Dementia in other diseases classified elsewhere, unspecified severity, with psychotic disturbance Plan Mr. Quintero is a 79 year-old male with hx of Dementia, it does appear to be of Lewy Body with periods of visual hallucinations, autonomic dysfunction, some degree of fluctuation in terms of orientation. HCP has been invoked, he is CV by HCP. Will continue seroquel for now and assess efficacy. PLAN 12/05 d/c seroquel, continue only risperidone. continue to monitor hotn, on midodrine. 12/06 hit head, ordered head CT no new intracraneal bleed. subdural hematoma noted again. continue bladder scans q6h straigh cath if pvr>500cc 12/07 continue tx. added low dose clonazepam 0.125mg po TID. 12/08 continue tx. 12/09 add low dose depakote 125mg PO BID. Note pt has very low albumin level (check free VPA, instead or total). continue risperidone, no EPS noted. Continue low dose of clonazepam. 12/10: no change today 12/11: aggressive, refusing meds - no treatment plan change yet 12/12 increase depakote to 250mg po BID, continue all other medications. 12/13 change clonazepam for valium 5mg po TID, back IM per HCP. change risperidone for low dose prolixin so he can receive back IM if not taking po per HCP. 12/14 continue tx. appears calmer today. 12/15 continue tx. 12/16 continue tx. 12/17 remains intermittently combative and today hit [facility] Refusing all meds. -Has been having very little fluid intake over past 2 days so will get labs -Patient's nurse, Etelvina Gleason reviewed microbiology and personal lines underwriter agrees that current antibiotic should likely be changed given sensitivities; hospitalist consult placed PLAN: -DC Ceftin (not indicated) -START Ampicillin 500mg q6h for 10 days (Ampicillin is sensitive and comes in IM) 12/18 same presentation Bun/Cr grossly WNL Continue Ampicillin 500mg q6h for 10 days (Ampicillin is sensitive and comes in IM) 12/19 continues to present as irritable, significant decrease in oral intake in past 2 days. refusing other medications. pending CMP/CBC. Hospitalist following. Left for , HCP, Yesica with call back number. Reason for continued inpatient stay Substantial Risk for: inability to function Time Spent With Patient Time: Total time managing care of this patient today ____ minutes.
[2024-12-19] MEDS: diazePAM 10 MG/2 ML CARTRIDGE 5 MG IM ×2 (09:59→16:24)
--- NOTE | 2024-12-19 17:24 | PC.NURSE ---
justin pulled his IV out, provider notified.
[2024-12-19 19:38] VITALS: BP 92/56; PULSE 95; RESP 16; TEMP 36.2; O2SAT 96
[2024-12-19] MEDS: Divalproex Sodium Sprinkles 125 MG CAP.DR.SPR 250 MG PO (20:24)
--- NOTE | 2024-12-20 08:54 | P.PNPSI_ITS ---
Subjective Subjective Date of Service: 12/20/24 Reason For Visit: agitation Subjective Notes: Conditional Voluntary Interim History: Pt with intermittent agitation and resistant to direct care, refusing some medications, reports urinary frequency, attempting to ambulate out of bed and irritable with staff when they attempt to help him. Not able to get up on his own, more decompensated physically. requires IM medication for agitation and refusal of medication. Medication Compliance: Yes Mental Status Exam Mental Status Exam Narrative: Appearance: wearing hospital gown, thin, fair hygiene, in NAD Behavior: Intermittently agitated Psychomotor: Intermittently agitated Speech: mostly clear, normal rate/rhythm/volume, spontaneous TP: mostly linear TC:various things, not much expressed Mood: irritable Affect: congruent SI: denies HI: denies VH/AH: no overt signs Delusions: no delusional content reported Insight/judgment: impaired Diagnostics Vital Signs (24Hr): Vital Signs - 24 hr 12/19/24 19:38 Temperature 97.2 F Pulse Rate 95 Respiratory Rate 16 Blood Pressure 92/56 L Pulse Oximetry 96 Oxygen Delivery Method Room Air BMI result Body Mass Index 20.2 Labs 12/21/24 15:02 12/21/24 15:02 Imaging Radiology Impressions: ITS Impressions Clavicle X-Ray 11/30/24 08:08 IMPRESSION: Inferiorly displaced fracture distal right clavicle, probable old. Degenerative changes, right shoulder. Consider calcific tendinosis/tendinopathy, supraspinatus. Electronically signed by: Raghav Porras MD 11/30/2024 09:[address] 12/06/24 10:46 IMPRESSION: Continued evolution of a right frontoparietal subdural hematoma measuring up to 6 mm in thickness with mild mass effect. No intracranial hemorrhage or other acute intracranial abnormality. Electronically signed by: Miguel Ness MD 12/06/2024 11:23 AM EDT RP Elbow X-Ray 12/07/24 09:11 IMPRESSION: No evidence of fracture of the right elbow. Electronically signed by: Blanye Avila MD 12/07/2024 09:43 AM EDT Elbow X-Ray 12/07/24 09:13 IMPRESSION: No evidence of fracture of the left elbow. Electronically signed by: Blayne Avila MD 12/07/2024 09:44 AM EDT RP Humerus X-Ray 12/07/24 14:02 IMPRESSION: No acute fracture, left humerus. No change Electronically signed by: Raghav Porras MD 12/07/2024 02:14 PM EDT RP Medications Medications Current Medications Acetaminophen (Acetaminophen 325 Mg Tablet) 650 mg PO Q6H PRN PRN Reason: Headache/Pain, Scale 1-10 Last Admin: 12/11/24 20:19 Dose: 650 mg Al Hydroxide/Mg Hydroxide (Magnesium Hydrox/Alum Hydrox 30 Ml Oral.Susp) 30 ml PO Q6H PRN PRN Reason: Heartburn/Nausea Atorvastatin Calcium (Atorvastatin Calcium 80 Mg Tablet) 80 mg PO DAILY [facility] Last Admin: 12/19/24 09:31 Dose: Not Given Bisacodyl (Bisacodyl 10 Mg Supp.Rect) 10 mg [place] DAILY PRN PRN Reason: Constipation Last Admin: 12/08/24 16:44 Dose: 10 mg Diazepam (Diazepam 2 Mg Tablet) 2 mg PO TID [facility] Last Admin: 12/19/24 20:24 Dose: 2 mg Diazepam (Diazepam 10 Mg/2 Ml Cartridge) 5 mg IM TID PRN PRN Reason: if refuses po valium per HCP Last Admin: 12/19/24 16:24 Dose: 5 mg Divalproex Sodium (Divalproex Sodium Sprinkles 125 Mg Carmon.) 250 mg PO BID [facility] Last Admin: 12/19/24 20:24 Dose: 250 mg Finasteride (Finasteride 5 Mg Tablet) 5 mg PO DAILY [facility] Last Admin: 12/19/24 09:31 Dose: Not Given Fludrocortisone Acetate (Fludrocortisone Acetate 0.1 Mg Tablet) 0.2 mg PO DAILY [facility] Fluphenazine HCl (Fluphenazine Hcl 1 Mg Tablet) 2 mg PO TID [facility] Last Admin: 12/19/24 20:24 Dose: 2 mg Fluphenazine HCl (Fluphenazine Hcl 2.5 Mg/Ml 10 Ml Vial) 2 mg IM TID PRN PRN Reason: if refuses oral prolixin Last Admin: 12/19/24 16:24 Dose: 2 mg Hydrocortisone (Hydrocortisone 1 % Ointment 28.35 Gm Tube) 1 appl TOPICAL BID [facility]; Protocol Last Admin: 12/19/24 20:28 Dose: Not Given Sodium Chloride (Ns) 1,000 mls @ 80 mls/hr IVCONT .[id number] [facility] Last Admin: 12/19/24 23:22 Dose: Not Given Magnesium Hydroxide (Milk Of Magnesia 30 Ml Oral.Susp) 30 ml PO DAILY PRN PRN Reason: Constipation Melatonin (Melatonin 3 Mg Tablet) 6 mg PO BEDTIME [facility] Last Admin: 12/19/24 20:24 Dose: 6 mg Midodrine (Midodrine Hcl 10 Mg Tablet) 10 mg PO TIDWM [facility] Last Admin: 12/19/24 16:34 Dose: Not Given Mirtazapine (Mirtazapine 15 Mg Tablet) 15 mg PO BEDTIME [facility] Last Admin: 12/19/24 20:23 Dose: 15 mg Olanzapine (Olanzapine 5 Mg Tablet) 5 mg PO Q6H PRN PRN Reason: agitation Omeprazole (Omeprazole 20 Mg Capsule.Dr) 20 mg PO DAILY@0630 [facility] Last Admin: 12/20/24 06:25 Dose: Not Given Senna (Sennosides 8.6 Mg Tablet) 8.6 mg PO Q12H PRN PRN Reason: Constipation Sodium Biphosphate/Sodium Phosphate (Sodium Phosphate,[place]-Dibasic 133 Ml Enema) 118 ml [place] DAILY PRN PRN Reason: Constipation Tamsulosin HCl (Tamsulosin Hcl 0.4 Mg Capsule) 0.4 mg PO DAILY [facility] Last Admin: 12/19/24 09:31 Dose: Not Given Trazodone HCl (Trazodone Hcl 50 Mg Tablet) 50 mg PO BEDTIME PRN PRN Reason: Insomnia Last Admin: 12/11/24 20:18 Dose: 50 mg Allergies Allergies Allergy/AdvReac Type Severity Reaction Status Date / Time No Known Allergies Allergy Verified 11/30/24 02:25 Assessment & Plan Assessment & Plan (1) Major neurocognitive disorder due to multiple etiologies, with psychotic disturbance: Status: Acute Code(s): F02.82 - Dementia in other diseases classified elsewhere, unspecified severity, with psychotic disturbance (2) BPH (benign prostatic hyperplasia): Status: Acute Code(s): N40.0 - Benign prostatic hyperplasia without lower urinary tract symptoms (3) Lewy body dementia with psychotic disturbance: Status: Acute Code(s): G31.83 - Neurocognitive disorder with Lewy bodies; F02.82 - Dementia in other diseases classified elsewhere, unspecified severity, with psychotic disturbance Plan Mr. Quintero is a 79 year-old male with hx of Dementia, it does appear to be of Lewy Body with periods of visual hallucinations, autonomic dysfunction, some degree of fluctuation in terms of orientation. HCP has been invoked, he is CV by HCP. Will continue seroquel for now and assess efficacy. PLAN 12/05 d/c seroquel, continue only risperidone. continue to monitor hotn, on midodrine. 12/06 hit head, ordered head CT no new intracraneal bleed. subdural hematoma noted again. continue bladder scans q6h straigh cath if pvr>500cc 12/07 continue tx. added low dose clonazepam 0.125mg po TID. 12/08 continue tx. 12/09 add low dose depakote 125mg PO BID. Note pt has very low albumin level (check free VPA, instead or total). continue risperidone, no EPS noted. Continue low dose of clonazepam. 12/10: no change today 12/11: aggressive, refusing meds - no treatment plan change yet 12/12 increase depakote to 250mg po BID, continue all other medications. 12/13 change clonazepam for valium 5mg po TID, back IM per HCP. change risperidone for low dose prolixin so he can receive back IM if not taking po per HCP. 12/14 continue tx. appears calmer today. 12/15 continue tx. 12/16 continue tx. 12/17 remains intermittently combative and today hit [facility] Refusing all meds. -Has been having very little fluid intake over past 2 days so will get labs -Patient's nurse, Etelvina Gleason reviewed microbiology and technical proposal writer agrees that current antibiotic should likely be changed given sensitivities; hospitalist consult placed PLAN: -DC Ceftin (not indicated) -START Ampicillin 500mg q6h for 10 days (Ampicillin is sensitive and comes in IM) 12/18 same presentation Bun/Cr grossly WNL Continue Ampicillin 500mg q6h for 10 days (Ampicillin is sensitive and comes in IM) 12/19 continues to present as irritable, significant decrease in oral intake in past 2 days. refusing other medications. pending CMP/CBC. Hospitalist following. Left for , HCP, Yesica with call back number. 12/20 continues to present with intermittent agitation and refusing care at times, irritable and combative with direct care. Reason for continued inpatient stay Substantial Risk for: inability to function Time Spent With Patient Time: Total time managing care of this patient today ____ minutes.
[2024-12-20 10:30] VITALS: BP 91/59; PULSE 73; RESP 16; TEMP 36.8; O2SAT 94
[2024-12-20] MEDS: Divalproex Sodium Sprinkles 125 MG CAP.DR.SPR 250 MG PO ×2 (10:41→21:43)
[2024-12-20 13:16] VITALS: BP 101/58
[2024-12-20 17:07] VITALS: BP 98/66
[2024-12-20 20:00] VITALS: BP 80/52; PULSE 80; RESP 16; TEMP 36.2; O2SAT 97
[2024-12-20 21:41] VITALS: BP 103/65; PULSE 82; RESP 20; TEMP 36.1; O2SAT 95
[2024-12-21 08:00] VITALS: BP 90/56; PULSE 64; RESP 18; TEMP 36.5; O2SAT 99
[2024-12-21 09:35] VITALS: BP 90/56
[2024-12-21] MEDS: Divalproex Sodium Sprinkles 125 MG CAP.DR.SPR 250 MG PO ×2 (09:35→20:33)
[2024-12-21] MEDS: Hydrocortisone 1 % Ointment 28.35 GM TUBE 1 APPL TOPICAL (09:36)
[2024-12-21 12:07] VITALS: BP 91/56
--- NOTE | 2024-12-21 14:28 | P.PNIM_ITS ---
Subjective Subjective Date of Service: 12/21/24 Interval History: Patient's oral intake continues to wax and wane, on exam he is calm resting in bed. He did accept his medications this morning and allowed blood to be drawn. He does not answer any questions, does awaken and look at you when he is aroused. Sleeping more. Continues to require intermittent straight catheterizations due to removal of his Cruz. Physical Exam 2 Exam: Exam: CONST: Alert and confused, in NAD. Thin HEENT: Normocephalic, atraumatic, dry mucous membranes RESP: Lungs clear, RRR even and regular HEART:,RRR, S1, S2. No edema GI:Abdomen Soft NT, ND. + BS times four :Deferred SKIN: Warm dry and intact, skin tears to bilateral arms, scattered bruising NEURO: Moves all extremities PSYCH:, cooperative Vital Signs: Vital Signs: Last Vital Signs Temp 97.7 F 12/21/24 08:00 Pulse 64 12/21/24 08:00 Resp 18 12/21/24 08:00 BP 91/56 L 12/21/24 12:07 Pulse Ox 99 12/21/24 08:00 O2 Del Method Room Air 12/21/24 08:00 BMI result Body Mass Index 20.2 Objective Data Active Medications Acetaminophen (Acetaminophen 325 Mg Tablet) 650 mg PO Q6H PRN PRN Reason: Headache/Pain, Scale 1-10 Last Admin: 12/11/24 20:19 Dose: 650 mg Documented By: REBECA Al Hydroxide/Mg Hydroxide (Magnesium Hydrox/Alum Hydrox 30 Ml Oral.Susp) 30 ml PO Q6H PRN PRN Reason: Heartburn/Nausea Atorvastatin Calcium (Atorvastatin Calcium 80 Mg Tablet) 80 mg PO DAILY [facility] Last Admin: 12/21/24 09:36 Dose: 80 mg Documented By: ROSA Bisacodyl (Bisacodyl 10 Mg Supp.Rect) 10 mg [place] DAILY PRN PRN Reason: Constipation Last Admin: 12/08/24 16:44 Dose: 10 mg Documented By: FREDDY Diazepam (Diazepam 2 Mg Tablet) 2 mg PO TID [facility] Last Admin: 12/21/24 09:36 Dose: 2 mg Documented By: ROSA Diazepam (Diazepam 10 Mg/2 Ml Cartridge) 5 mg IM TID PRN PRN Reason: if refuses po valium per HCP Last Admin: 12/19/24 16:24 Dose: 5 mg Documented By: ISABELL Divalproex Sodium (Divalproex Sodium Sprinkles 125 Mg Cap) 250 mg PO BID [facility] Last Admin: 12/21/24 09:35 Dose: 250 mg Documented By: ROSA Finasteride (Finasteride 5 Mg Tablet) 5 mg PO DAILY [facility] Last Admin: 12/21/24 09:36 Dose: 5 mg Documented By: ROSA Fludrocortisone Acetate (Fludrocortisone Acetate 0.1 Mg Tablet) 0.2 mg PO DAILY [facility] Last Admin: 12/21/24 09:36 Dose: 0.2 mg Documented By: ROSA Fluphenazine HCl (Fluphenazine Hcl 1 Mg Tablet) 2 mg PO TID [facility] Last Admin: 12/21/24 10:40 Dose: 2 mg Documented By: ROSA Fluphenazine HCl (Fluphenazine Hcl 2.5 Mg/Ml 10 Ml Vial) 2 mg IM TID PRN PRN Reason: if refuses oral prolixin Last Admin: 12/20/24 16:01 Dose: 2 mg Documented By: ELIAZAR Hydrocortisone (Hydrocortisone 1 % Ointment 28.35 Gm Tube) 1 appl TOPICAL BID [facility]; Protocol Last Admin: 12/21/24 09:36 Dose: 1 appl Documented By: ROSA Magnesium Hydroxide (Milk Of Magnesia 30 Ml Oral.Susp) 30 ml PO DAILY PRN PRN Reason: Constipation Melatonin (Melatonin 3 Mg Tablet) 6 mg PO BEDTIME [facility] Last Admin: 12/20/24 21:43 Dose: 6 mg Documented By: BLAISE Midodrine (Midodrine Hcl 10 Mg Tablet) 10 mg PO TIDWM [facility] Last Admin: 12/21/24 12:07 Dose: 10 mg Documented By: ROSA Mirtazapine (Mirtazapine 15 Mg Tablet) 15 mg PO BEDTIME [facility] Last Admin: 12/20/24 21:43 Dose: 15 mg Documented By: BLAISE Olanzapine (Olanzapine 5 Mg Tablet) 5 mg PO Q6H PRN PRN Reason: agitation Omeprazole (Omeprazole 20 Mg Calli.) 20 mg PO DAILY@0630 [facility] Last Admin: 12/21/24 06:37 Dose: Not Given Documented By: ALLI Non-Admin Reason: Patient Refused Senna (Sennosides 8.6 Mg Tablet) 8.6 mg PO Q12H PRN PRN Reason: Constipation Sodium Biphosphate/Sodium Phosphate (Sodium Phosphate,[place]-Dibasic 133 Ml Enema) 118 ml [place] DAILY PRN PRN Reason: Constipation Tamsulosin HCl (Tamsulosin Hcl 0.4 Mg Capsule) 0.4 mg PO DAILY [facility] Last Admin: 12/21/24 09:36 Dose: 0.4 mg Documented By: ROSA Trazodone HCl (Trazodone Hcl 50 Mg Tablet) 50 mg PO BEDTIME PRN PRN Reason: Insomnia Last Admin: 12/11/24 20:18 Dose: 50 mg Documented By: REBECA Labs 12/21/24 15:02 12/17/24 16:25 Assessment and Plan (1) BPH (benign prostatic hyperplasia): Status: Acute Plan 79 year old male with vascular dementia, BPH, hypotension, acute on chronic subdural hematoma, GERD admitted to [facility] for further treatment of Dementia with behavioral disturbances. Vascular dementia/Aggression. Treatment per psych team. Patient accepted oral medication today Patient not consistently eating or drinking. BPH/Urinary retention Patient has been voiding at times, still requiring intermittent catheterizing Continue Finesteride and Flomax, patient has been refusing Will need outpatient urology follow up. Urine cytology with no malignant cells 11/29/2024 Bladder scan Q 6 hours and SC greater than 350 ccs Has been afebrile Would not recommend any further urine cultures unless there are clear signs and symptoms that localized to the urinary tract Avoid treating asymptomatic bacteriuria Acute on Chronic subdural hematoma CT scans of the head consistent with old subdural hematoma. No acute neurological change indicating need for repeat head CT Hypotension Continue Midodrine TID, and Florinef 0.2 mgs daily Anurag stockings Despite midodrine, BP's consistently low. Refused ECHO, Random cortisol level within normal limits Nephrology following GERD Continue PPI- Has beem refusing Thank you for allowing me to participate in the care of this patient. Will follow as needed, please notify medical provider if any acute concerns or issues arise. Quality Stroke Does the patient have a stroke diagnosis?: No VTE Prior VTE?: No VTE Risk Level:: Medical - low VTE Device Contraindication: Treatment Not Indicated VTE Drug Contraindication: Treatment Not Indicated
[2024-12-21 15:17] LABS: MANUAL DIFF FLAG NO
[2024-12-21 15:20] LABS: Hematocrit 32.4 % (42.0-52.0); Hemoglobin 10.7 g/dl (14.0-18.0); Imm Gran Abs Auto 0.02 X10*3/uL (0.00-0.03); Imm Gran Pct Auto 0.2 % (0.0-0.4); Lymphocytes Absolute Auto 0.6 X10*3/uL (1.2-4.9); Mean Corpuscular HGB Conc 33.0 g/dl (31.0-36.0); Mean Corpuscular Hemoglobin 31.5 pg (27.0-33.0); Mean Corpuscular Volume 95.3 fL (80.0-98.0); NRBC Abs Auto 0.000 X10*3/uL (0.0-0.012); NRBC Pct Auto 0.0 /100WBC (0.0-0.2); Platelet Count 202 X10*3/uL (160-400); Red Blood Count 3.40 X10*6/uL (4.60-5.80); White Blood Count 8.6 X10*3/uL (4.8-10.8)
[2024-12-21 15:40] LABS: Alanine Aminotransferase 16 U/L (0-40); Albumin Level 2.8 g/dL (3.5-5.0); Alkaline Phosphatase 103 U/L (39-117); Anion Gap 8 (12-20); Aspartate Amino Transferase 34 U/L (5-37); Blood Urea Nitrogen 14 mg/dL (9-16); Calcium 8.1 mg/dL (8.4-10.2); Carbon Dioxide 26 mmol/L (22-29); Chloride 112 mmol/L (96-108); Creatinine Clr Calc Pharmacy 70.2; Estimated Glomerular Filt Rate > 60; Potassium 3.9 mmol/L (3.3-5.1); Sodium 142 mmol/L (135-145); Total Protein 6.4 g/dL (6.5-8.0)
[2024-12-21 17:03] VITALS: BP 81/51
--- NOTE | 2024-12-21 17:21 | HO.PSYCHPN ---
Subjective Subjective Date of Service: 12/21/24 Reason For Visit: agitation Subjective Notes: Conditional Voluntary Healthcare Proxy: Yes Interim History: Pt slept most of the night. taking more medications, weak.unable to get up on his own. reports bladder pain. suspect bladder spams. very low albumin, also contributing to low blood pressure. Not oriented to situation. Review of Systems Review of Systems Unable to participate in review of systems due to mental status Yes all other systems are reviewed and are negative, Unobtainable due to mental condition and Unobtainable due to mental status Mental Status Exam Mental Status Exam Narrative: Appearance: wearing hospital gown, thin, fair hygiene, in NAD Behavior: Intermittently agitated Psychomotor: Intermittently agitated Speech: mostly clear, normal rate/rhythm/volume, spontaneous TP: mostly linear TC:various things, not much expressed Mood: irritable Affect: congruent SI: denies HI: denies VH/AH: no overt signs Delusions: no delusional content reported Insight/judgment: impaired Diagnostics Vital Signs (24Hr): Vital Signs - 24 hr 12/20/24 20:00 12/20/24 21:41 12/21/24 08:00 Temperature 97.1 F 97.0 F 97.7 F Pulse Rate 80 82 64 Respiratory Rate 16 20 18 Blood Pressure 80/52 L 103/65 90/56 L Pulse Oximetry 97 95 99 Oxygen Delivery Method Room Air Room Air Room Air 12/21/24 09:35 12/21/24 12:07 12/21/24 17:03 Temperature Pulse Rate Respiratory Rate Blood Pressure 90/56 L 91/56 L 81/51 L Pulse Oximetry Oxygen Delivery Method BMI result Body Mass Index 20.2 Labs 12/21/24 15:02 12/21/24 15:02 Labs: Laboratory Results - last 48 hr 12/21/24 15:02 WBC 8.6 RBC 3.40 L Hgb 10.7 L Hct 32.4 L MCV 95.3 MCH 31.5 MCHC 33.0 RDW 14.5 Plt Count 202 MPV 10.0 Immature Gran % (Auto) 0.2 Neut % (Auto) 87.0 H Lymph % (Auto) 6.9 L [place] % (Auto) 5.1 Eos % (Auto) 0.6 Baso % (Auto) 0.2 Lymph # (Auto) 0.6 L [place] # (Auto) 0.4 Eos # (Auto) 0.1 Baso # (Auto) 0.0 Abs Immat Gran (auto) 0.02 Absolute Neuts (auto) 7.4 Absolute Nucleated RBC 0.000 Nucleated RBC % (auto) 0.0 Sodium 142 Potassium 3.9 Chloride 112 H Carbon Dioxide 26 Anion Gap 8 L BUN 14 Creatinine 0.82 Estim Creat Clear Calc 70.2 Estimated GFR > 60 Random Glucose 108 Calcium 8.1 L Total Bilirubin 0.6 AST 34 ALT 16 Alkaline Phosphatase 103 Total Protein 6.4 L Albumin 2.8 L Imaging Radiology Impressions: ITS Impressions Clavicle X-Ray 11/30/24 08:08 IMPRESSION: Inferiorly displaced fracture distal right clavicle, probable old. Degenerative changes, right shoulder. Consider calcific tendinosis/tendinopathy, supraspinatus. Electronically signed by: Raghav Porras MD 11/30/2024 09:28 AM EDT RP Head CT 12/06/24 10:46 IMPRESSION: Continued evolution of a right frontoparietal subdural hematoma measuring up to 6 mm in thickness with mild mass effect. No intracranial hemorrhage or other acute intracranial abnormality. Electronically signed by: Miguel Ness MD 12/06/2024 11:23 AM EDT RP Elbow X-Ray 12/07/24 09:11 IMPRESSION: No evidence of fracture of the right elbow. Electronically signed by: Blayne Avila MD 12/07/2024 09:43 AM EDT RP Elbow X-Ray 12/07/24 09:13 IMPRESSION: No evidence of fracture of the left elbow. Electronically signed by: Blayne Avila MD 12/07/2024 09:44 AM EDT RP Humerus X-Ray 12/07/24 14:02 IMPRESSION: No acute fracture, left humerus. No change Electronically signed by: Raghav Porras MD 12/07/2024 02:14 PM EDT RP Medications Medications Current Medications Acetaminophen (Acetaminophen 325 Mg Tablet) 650 mg PO Q6H PRN PRN Reason: Headache/Pain, Scale 1-10 Last Admin: 12/11/24 20:19 Dose: 650 mg Al Hydroxide/Mg Hydroxide (Magnesium Hydrox/Alum Hydrox 30 Ml Oral.Susp) 30 ml PO Q6H PRN PRN Reason: Heartburn/Nausea Atorvastatin Calcium (Atorvastatin Calcium 80 Mg Tablet) 80 mg PO DAILY [facility] Last Admin: 12/21/24 09:36 Dose: 80 mg Bisacodyl (Bisacodyl 10 Mg Supp.Rect) 10 mg [place] DAILY PRN PRN Reason: Constipation Last Admin: 12/08/24 16:44 Dose: 10 mg Diazepam (Diazepam 2 Mg Tablet) 2 mg PO TID [facility] Last Admin: 12/21/24 15:29 Dose: 2 mg Diazepam (Diazepam 10 Mg/2 Ml Cartridge) 5 mg IM TID PRN PRN Reason: if refuses po valium per HCP Last Admin: 12/19/24 16:24 Dose: 5 mg Divalproex Sodium (Divalproex Sodium Sprinkles 125 Mg Camron.) 250 mg PO BID [facility] Last Admin: 12/21/24 09:35 Dose: 250 mg Finasteride (Finasteride 5 Mg Tablet) 5 mg PO DAILY [facility] Last Admin: 12/21/24 09:36 Dose: 5 mg Fludrocortisone Acetate (Fludrocortisone Acetate 0.1 Mg Tablet) 0.2 mg PO DAILY [facility] Last Admin: 12/21/24 09:36 Dose: 0.2 mg Hydrocortisone (Hydrocortisone 1 % Ointment 28.35 Gm Tube) 1 appl TOPICAL BID [facility]; Protocol Last Admin: 12/21/24 09:36 Dose: 1 appl Magnesium Hydroxide (Milk Of Magnesia 30 Ml Oral.Susp) 30 ml PO DAILY PRN PRN Reason: Constipation Melatonin (Melatonin 3 Mg Tablet) 6 mg PO BEDTIME [facility] Last Admin: 12/20/24 21:43 Dose: 6 mg Midodrine (Midodrine Hcl 10 Mg Tablet) 10 mg PO TIDWM [facility] Last Admin: 12/21/24 17:03 Dose: 10 mg Mirtazapine (Mirtazapine 15 Mg Tablet) 15 mg PO BEDTIME [facility] Last Admin: 12/20/24 21:43 Dose: 15 mg Olanzapine (Olanzapine 5 Mg Tablet) 5 mg PO Q6H PRN PRN Reason: agitation Olanzapine (Olanzapine 2.5 Mg Tablet) 2.5 mg PO TID [facility] Olanzapine (Olanzapine 10 Mg Vial) 2.5 mg IM BID PRN PRN Reason: if refuses oral olanzapine Omeprazole (Omeprazole 20 Mg Capsule.) 20 mg PO DAILY@0630 [facility] Last Admin: 12/21/24 06:37 Dose: Not Given Senna (Sennosides 8.6 Mg Tablet) 8.6 mg PO Q12H PRN PRN Reason: Constipation Sodium Biphosphate/Sodium Phosphate (Sodium Phosphate,[place]-Dibasic 133 Ml Enema) 118 ml [place] DAILY PRN PRN Reason: Constipation Tamsulosin HCl (Tamsulosin Hcl 0.4 Mg Capsule) 0.4 mg PO DAILY [facility] [place] Last Admin: 12/21/24 09:36 Dose: 0.4 mg Trazodone HCl (Trazodone Hcl 50 Mg Tablet) 50 mg PO BEDTIME PRN PRN Reason: Insomnia Last Admin: 12/11/24 20:18 Dose: 50 mg Allergies Allergies Allergy/AdvReac Type Severity Reaction Status Date / Time No Known Allergies Allergy Verified 11/30/24 02:25 Assessment & Plan Assessment & Plan (1) Major neurocognitive disorder due to multiple etiologies, with psychotic disturbance: Status: Acute Code(s): F02.82 - Dementia in other diseases classified elsewhere, unspecified severity, with psychotic disturbance (2) BPH (benign prostatic hyperplasia): Status: Acute Code(s): N40.0 - Benign prostatic hyperplasia without lower urinary tract symptoms (3) Lewy body dementia with psychotic disturbance: Status: Acute Code(s): G31.83 - Neurocognitive disorder with Lewy bodies; F02.82 - Dementia in other diseases classified elsewhere, unspecified severity, with psychotic disturbance Plan Mr. Quintero is a 79 year-old male with hx of Dementia, it does appear to be of Lewy Body with periods of visual hallucinations, autonomic dysfunction, some degree of fluctuation in terms of orientation. HCP has been invoked, he is CV by HCP. Will continue seroquel for now and assess efficacy. PLAN 12/05 d/c seroquel, continue only risperidone. continue to monitor hotn, on midodrine. 12/06 hit head, ordered head CT no new intracraneal bleed. subdural hematoma noted again. continue bladder scans q6h straigh cath if pvr>500cc 12/07 continue tx. added low dose clonazepam 0.125mg po TID. 12/08 continue tx. 12/09 add low dose depakote 125mg PO BID. Note pt has very low albumin level (check free VPA, instead or total). continue risperidone, no EPS noted. Continue low dose of clonazepam. 12/10: no change today 12/11: aggressive, refusing meds - no treatment plan change yet 12/12 increase depakote to 250mg po BID, continue all other medications. 12/13 change clonazepam for valium 5mg po TID, back IM per HCP. change risperidone for low dose prolixin so he can receive back IM if not taking po per HCP. 12/14 continue tx. appears calmer today. 12/15 continue tx. 12/16 continue tx. 12/17 remains intermittently combative and today hit [facility]. Refusing all meds. -Has been having very little fluid intake over past 2 days so will get labs -Patient's nurse, Etelvina Gleason reviewed microbiology and com writer agrees that current antibiotic should likely be changed given sensitivities; hospitalist consult placed PLAN: -DC Ceftin (not indicated) -START Ampicillin 500mg q6h for 10 days (Ampicillin is sensitive and comes in IM) 12/18 same presentation Bun/Cr grossly WNL Continue Ampicillin 500mg q6h for 10 days (Ampicillin is sensitive and comes in IM) 12/19 continues to present as irritable, significant decrease in oral intake in past 2 days. refusing other medications. pending CMP/CBC. Hospitalist following. Left for , HCP, Yesica with call back number. 12/20 continues to present with intermittent agitation and refusing care at times, irritable and combative with direct care. 12/21 will change prolixin to olanzapine 2.5mg po TID, back IM limited to BID, not TID to avoid several IM in one day and also bioavailability of olanzapine higher when given IM. Reason for continued inpatient stay Substantial Risk for: inability to function Time Spent With Patient Time: Total time managing care of this patient today ____ minutes.
[2024-12-21 20:00] VITALS: BP 86/52; PULSE 85; RESP 17; TEMP 36.7; O2SAT 96
[2024-12-22 08:00] VITALS: BP 92/88; PULSE 100; RESP 14; O2SAT 96
[2024-12-22] MEDS: diazePAM 10 MG/2 ML CARTRIDGE 5 MG IM ×2 (08:57→21:34)
[2024-12-22] MEDS: OLANZapine 10 MG VIAL 2.5 MG IM ×2 (08:58→21:28)
--- NOTE | 2024-12-22 09:46 | P.PNPSI_ITS ---
Subjective Subjective Date of Service: 12/22/24 Reason For Visit: agitation Subjective Notes: Conditional Voluntary Healthcare Proxy: Yes Interim History: Pt slept through the night. He is less combative, appears weaker. He was sleeping most of the day. 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 Medical SOFTWARE SALES REPRESENTATIVE Meg Dukes present during visit. Review of Systems Review of Systems Unable to participate in review of systems due to mental status Yes all other systems are reviewed and are negative, Unobtainable due to mental condition and Unobtainable due to mental status Mental Status Exam Mental Status Exam Narrative: Appearance: wearing hospital gown, thin, fair hygiene, in NAD Behavior: Intermittently agitated Psychomotor: Intermittently agitated Speech: mostly clear, normal rate/rhythm/volume, spontaneous TP: mostly linear TC:various things, not much expressed Mood: irritable Affect: congruent SI: denies HI: denies VH/AH: no overt signs Delusions: no delusional content reported Insight/judgment: impaired Diagnostics Vital Signs (24Hr): Vital Signs - 24 hr 12/21/24 12:07 12/21/24 17:03 12/21/24 20:00 Temperature 98.0 F Pulse Rate 85 Respiratory Rate 17 Blood Pressure 91/56 L 81/51 L 86/52 L Pulse Oximetry 96 Oxygen Delivery Method Room Air BMI result Body Mass Index 20.2 Labs 12/21/24 15:02 12/21/24 15:02 Labs: Laboratory Results - last 48 hr 12/21/24 15:02 WBC 8.6 RBC 3.40 L Hgb 10.7 L Hct 32.4 L MCV 95.3 MCH 31.5 MCHC 33.0 RDW 14.5 Plt Count 202 MPV 10.0 Immature Gran % (Auto) 0.2 Neut % (Auto) 87.0 H Lymph % (Auto) 6.9 L [place] % (Auto) 5.1 Eos % (Auto) 0.6 Baso % (Auto) 0.2 Lymph # (Auto) 0.6 L [place] # (Auto) 0.4 Eos # (Auto) 0.1 Baso # (Auto) 0.0 Abs Immat Gran (auto) 0.02 Absolute Neuts (auto) 7.4 Absolute Nucleated RBC 0.000 Nucleated RBC % (auto) 0.0 Sodium 142 Potassium 3.9 Chloride 112 H Carbon Dioxide 26 Anion Gap 8 L BUN 14 Creatinine 0.82 Estim Creat Clear Calc 70.2 Estimated GFR > 60 Random Glucose 108 Calcium 8.1 L Total Bilirubin 0.6 AST 34 ALT 16 Alkaline Phosphatase 103 Total Protein 6.4 L Albumin 2.8 L Imaging Radiology Impressions: ITS Impressions Clavicle X-Ray 11/30/24 08:08 IMPRESSION: Inferiorly displaced fracture distal right clavicle, probable old. Degenerative changes, right shoulder. Consider calcific tendinosis/tendinopathy, supraspinatus. Electronically signed by: Raghav Porras MD 11/30/2024 09:28 AM EDT RP Head CT 12/06/24 10:46 IMPRESSION: Continued evolution of a right frontoparietal subdural hematoma measuring up to 6 mm in thickness with mild mass effect. No intracranial hemorrhage or other acute intracranial abnormality. Electronically signed by: Miguel Ness MD 12/06/2024 11:23 AM EDT RP Elbow X-Ray 12/07/24 09:11 IMPRESSION: No evidence of fracture of the right elbow. Electronically signed by: Blayne Avila MD 12/07/2024 09:43 AM EDT RP Elbow X-Ray 12/07/24 09:13 IMPRESSION: No evidence of fracture of the left elbow. Electronically signed by: Blayne Avila MD 12/07/2024 09:44 AM EDT RP Humerus X-Ray 12/07/24 14:02 IMPRESSION: No acute fracture, left humerus. No change Electronically signed by: Raghav Porras MD 12/07/2024 02:14 PM EDT RP Medications Medications Current Medications Acetaminophen (Acetaminophen 325 Mg Tablet) 650 mg PO Q6H PRN PRN Reason: Headache/Pain, Scale 1-10 Last Admin: 12/11/24 20:19 Dose: 650 mg Al Hydroxide/Mg Hydroxide (Magnesium Hydrox/Alum Hydrox 30 Ml Oral.Susp) 30 ml PO Q6H PRN PRN Reason: Heartburn/Nausea Atorvastatin Calcium (Atorvastatin Calcium 80 Mg Tablet) 80 mg PO DAILY [facility] Last Admin: 12/22/24 08:30 Dose: Not Given Bisacodyl (Bisacodyl 10 Mg Supp.Rect) 10 mg [place] DAILY PRN PRN Reason: Constipation Last Admin: 12/08/24 16:44 Dose: 10 mg Diazepam (Diazepam 2 Mg Tablet) 2 mg PO TID [facility] Last Admin: 12/22/24 08:30 Dose: Not Given Diazepam (Diazepam 10 Mg/2 Ml Cartridge) 5 mg IM TID PRN PRN Reason: if refuses po valium per HCP Last Admin: 12/22/24 08:57 Dose: 5 mg Divalproex Sodium (Divalproex Sodium Sprinkles 125 Mg Cap) 250 mg PO BID [facility] Last Admin: 12/22/24 08:30 Dose: Not Given Finasteride (Finasteride 5 Mg Tablet) 5 mg PO DAILY [facility] Last Admin: 12/22/24 08:30 Dose: Not Given Fludrocortisone Acetate (Fludrocortisone Acetate 0.1 Mg Tablet) 0.2 mg PO DAILY [facility] Last Admin: 12/22/24 08:31 Dose: Not Given Hydrocortisone (Hydrocortisone 1 % Ointment 28.35 Gm Tube) 1 appl TOPICAL BID [facility]; Protocol Last Admin: 12/21/24 23:29 Dose: Not Given Magnesium Hydroxide (Milk Of Magnesia 30 Ml Oral.Susp) 30 ml PO DAILY PRN PRN Reason: Constipation Melatonin (Melatonin 3 Mg Tablet) 6 mg PO BEDTIME [facility] Last Admin: 12/21/24 23:29 Dose: Not Given Midodrine (Midodrine Hcl 10 Mg Tablet) 10 mg PO TIDWM [facility] Last Admin: 12/22/24 08:29 Dose: Not Given Mirtazapine (Mirtazapine 15 Mg Tablet) 15 mg PO BEDTIME [facility] Last Admin: 12/21/24 20:33 Dose: 15 mg Olanzapine (Olanzapine 5 Mg Tablet) 5 mg PO Q6H PRN PRN Reason: agitation Olanzapine (Olanzapine 2.5 Mg Tablet) 2.5 mg PO TID [facility] Last Admin: 12/22/24 08:31 Dose: Not Given Olanzapine (Olanzapine 10 Mg Vial) 2.5 mg IM BID PRN PRN Reason: if refuses oral olanzapine Last Admin: 12/22/24 08:58 Dose: 2.5 mg Omeprazole (Omeprazole 20 Mg ) 20 mg PO DAILY@0630 [facility] Last Admin: 12/22/24 06:15 Dose: 20 mg Senna (Sennosides 8.6 Mg Tablet) 8.6 mg PO Q12H PRN PRN Reason: Constipation Sodium Biphosphate/Sodium Phosphate (Sodium Phosphate,[place]-Dibasic 133 Ml Enema) 118 ml MD DAILY PRN PRN Reason: Constipation Tamsulosin HCl (Tamsulosin Hcl 0.4 Mg Capsule) 0.4 mg PO DAILY [facility] Last Admin: 12/22/24 08:31 Dose: Not Given Trazodone HCl (Trazodone Hcl 50 Mg Tablet) 50 mg PO BEDTIME PRN PRN Reason: Insomnia Last Admin: 12/11/24 20:18 Dose: 50 mg Allergies Allergies Allergy/AdvReac Type Severity Reaction Status Date / Time No Known Allergies Allergy Verified 11/30/24 02:25 Assessment & Plan Assessment & Plan (1) Major neurocognitive disorder due to multiple etiologies, with psychotic disturbance: Status: Acute Code(s): F02.82 - Dementia in other diseases classified elsewhere, unspecified severity, with psychotic disturbance (2) BPH (benign prostatic hyperplasia): Status: Acute Code(s): N40.0 - Benign prostatic hyperplasia without lower urinary tract symptoms (3) Lewy body dementia with psychotic disturbance: Status: Acute Code(s): G31.83 - Neurocognitive disorder with Lewy bodies; F02.82 - Dementia in other diseases classified elsewhere, unspecified severity, with psychotic disturbance Plan Mr. Quintero is a 79 year-old male with hx of Dementia, it does appear to be of Lewy Body with periods of visual hallucinations, autonomic dysfunction, some degree of fluctuation in terms of orientation. HCP has been invoked, he is CV by HCP. Will continue seroquel for now and assess efficacy. PLAN 12/05 d/c seroquel, continue only risperidone. continue to monitor hotn, on midodrine. 12/06 hit head, ordered head CT no new intracraneal bleed. subdural hematoma noted again. continue bladder scans q6h straigh cath if pvr>500cc 12/07 continue tx. added low dose clonazepam 0.125mg po TID. 12/08 continue tx. 12/09 add low dose depakote 125mg PO BID. Note pt has very low albumin level (check free VPA, instead or total). continue risperidone, no EPS noted. Continue low dose of clonazepam. 12/10: no change today 12/11: aggressive, refusing meds - no treatment plan change yet 12/12 increase depakote to 250mg po BID, continue all other medications. 12/13 change clonazepam for valium 5mg po TID, back IM per HCP. change risperidone for low dose prolixin so he can receive back IM if not taking po per HCP. 12/14 continue tx. appears calmer today. 12/15 continue tx. 12/16 continue tx. 12/17 remains intermittently combative and today hit [facility] [place]. Refusing all meds. -Has been having very little fluid intake over past 2 days so will get labs -Patient's nurse, Etelvina Gleason reviewed microbiology and publications writer agrees that current antibiotic should likely be changed given sensitivities; hospitalist consult placed PLAN: -DC Ceftin (not indicated) -START Ampicillin 500mg q6h for 10 days (Ampicillin is sensitive and comes in IM) 12/18 same presentation Bun/Cr grossly WNL Continue Ampicillin 500mg q6h for 10 days (Ampicillin is sensitive and comes in IM) 12/19 continues to present as irritable, significant decrease in oral intake in past 2 days. refusing other medications. pending CMP/CBC. Hospitalist following. Left VM for , HCP, Yesica with call back number. 12/20 continues to present with intermittent agitation and refusing care at times, irritable and combative with direct care. 12/21 will change prolixin to olanzapine 2.5mg po TID, back IM limited to BID, not TID to avoid several IM in one day and also bioavailability of olanzapine higher when given IM. 12/22 continue tx. 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 Reason for continued inpatient stay Substantial Risk for: inability to function Time Spent With Patient Time: Total time managing care of this patient today ____ minutes.
[2024-12-22 10:26] VITALS: BMI 20.6
--- NOTE | 2024-12-22 13:10 | HO.PM.IMPN ---
Subjective Subjective Date of Service: 12/22/24 Interval History: Patient continues with waxing and waning mental status, p.o. intake, and alertness. Met with family in conjunction with psychiatry team and social and political studies professor. Reviewed most status. Family does not wish to have any further workups, labs, invasive procedures. They wished to focus on comfort. They do not wish to have any dialysis, tube feeding, or intravenous fluids. They do not wish any resuscitation or intubation. 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 Physical Exam Exam: Exam: CONST: Alert and confused, in NAD. Thin. Sleeping easily arousable HEENT: Normocephalic, atraumatic, dry mucous membranes RESP: Lungs clear, RRR even and regular HEART:,RRR, S1, S2. No edema GI:Abdomen Soft NT, ND. + BS times four :Deferred SKIN: Warm dry and intact, skin tears to bilateral arms, scattered bruising NEURO: Moves all extremities PSYCH: Sleepy Vital Signs: Vital Signs: Last Vital Signs Temp 98.0 F 12/21/24 20:00 Pulse 100 12/22/24 08:00 Resp 14 12/22/24 08:00 BP 92/88 12/22/24 08:00 Pulse Ox 96 12/22/24 08:00 O2 Del Method Room Air 12/22/24 08:00 BMI result Body Mass Index 20.6 Objective Data Active Medications Acetaminophen (Acetaminophen 325 Mg Tablet) 650 mg PO Q6H PRN PRN Reason: Headache/Pain, Scale 1-10 Last Admin: 12/11/24 20:19 Dose: 650 mg Documented By: REBECA Al Hydroxide/Mg Hydroxide (Magnesium Hydrox/Alum Hydrox 30 Ml Oral.Susp) 30 ml PO Q6H PRN PRN Reason: Heartburn/Nausea Atorvastatin Calcium (Atorvastatin Calcium 80 Mg Tablet) 80 mg PO DAILY [facility] Last Admin: 12/22/24 08:30 Dose: Not Given Documented By: JILLIAN Non-Admin Reason: Patient Refused Bisacodyl (Bisacodyl 10 Mg Supp.Rect) 10 mg MN DAILY PRN PRN Reason: Constipation Last Admin: 12/08/24 16:44 Dose: 10 mg Documented By: FREDDY Diazepam (Diazepam 2 Mg Tablet) 2 mg PO TID [facility] Last Admin: 12/22/24 08:30 Dose: Not Given Documented By: JILLIAN Non-Admin Reason: Patient Condition Contraindication Diazepam (Diazepam 10 Mg/2 Ml Cartridge) 5 mg IM TID PRN PRN Reason: if refuses po valium per HCP Last Admin: 12/22/24 08:57 Dose: 5 mg Documented By: JILLIAN Finasteride (Finasteride 5 Mg Tablet) 5 mg PO DAILY [facility] Last Admin: 12/22/24 08:30 Dose: Not Given Documented By: JILLIAN Non-Admin Reason: Patient Refused Fludrocortisone Acetate (Fludrocortisone Acetate 0.1 Mg Tablet) 0.2 mg PO DAILY [facility] Last Admin: 12/22/24 08:31 Dose: Not Given Documented By: JILLIAN Non-Admin Reason: Patient Refused Hydrocortisone (Hydrocortisone 1 % Ointment 28.35 Gm Tube) 1 appl TOPICAL BID [facility]; Protocol Last Admin: 12/22/24 11:56 Dose: Not Given Documented By: JILLIAN Non-Admin Reason: Patient Refused Magnesium Hydroxide (Milk Of Magnesia 30 Ml Oral.Susp) 30 ml PO DAILY PRN PRN Reason: Constipation Melatonin (Melatonin 3 Mg Tablet) 6 mg PO BEDTIME [facility] Last Admin: 12/21/24 23:29 Dose: Not Given Documented By: UZAIR Non-Admin Reason: patient sleepy Midodrine (Midodrine Hcl 10 Mg Tablet) 10 mg PO TIDWM [facility] Last Admin: 12/22/24 12:39 Dose: Not Given Documented By: JILLIAN Non-Admin Reason: Patient Refused Mirtazapine (Mirtazapine 15 Mg Tablet) 15 mg PO BEDTIME [facility] Last Admin: 12/21/24 20:33 Dose: 15 mg Documented By: UZAIR Olanzapine (Olanzapine 5 Mg Tablet) 5 mg PO Q6H PRN PRN Reason: agitation Olanzapine (Olanzapine 2.5 Mg Tablet) 2.5 mg PO TID [facility] Last Admin: 12/22/24 08:31 Dose: Not Given Documented By: JILLIAN Non-Admin Reason: Patient Refused Olanzapine (Olanzapine 10 Mg Vial) 2.5 mg IM BID PRN PRN Reason: if refuses oral olanzapine Last Admin: 12/22/24 08:58 Dose: 2.5 mg Documented By: JILLIAN Omeprazole (Omeprazole 20 Mg Calli.) 20 mg PO DAILY@0630 [facility] Last Admin: 12/22/24 06:15 Dose: 20 mg Documented By: UZAIR Senna (Sennosides 8.6 Mg Tablet) 8.6 mg PO Q12H PRN PRN Reason: Constipation Sodium Biphosphate/Sodium Phosphate (Sodium Phosphate,Bosque-Dibasic 133 Ml Enema) 118 ml MN DAILY PRN PRN Reason: Constipation Tamsulosin HCl (Tamsulosin Hcl 0.4 Mg Capsule) 0.4 mg PO DAILY [facility] Last Admin: 12/22/24 08:31 Dose: Not Given Documented By: JILLIAN Non-Admin Reason: Patient Refused Trazodone HCl (Trazodone Hcl 50 Mg Tablet) 50 mg PO BEDTIME PRN PRN Reason: Insomnia Last Admin: 12/11/24 20:18 Dose: 50 mg Documented By: REBECA Valproic Acid (Valproic Acid Liquid 250 Mg/5 Ml Solution) 250 mg PO BID [facility] Labs 12/21/24 15:02 12/21/24 15:02 Labs: Laboratory Results - last 24 hr 12/21/24 15:02 MCV 95.3 MCH 31.5 MCHC 33.0 RDW 14.5 Plt Count 202 MPV 10.0 Immature Gran % (Auto) 0.2 Neut % (Auto) 87.0 H Lymph % (Auto) 6.9 L Bosque % (Auto) 5.1 Eos % (Auto) 0.6 Baso % (Auto) 0.2 Lymph # (Auto) 0.6 L [place] # (Auto) 0.4 Eos # (Auto) 0.1 Baso # (Auto) 0.0 Abs Immat Gran (auto) 0.02 Absolute Neuts (auto) 7.4 Absolute Nucleated RBC 0.000 Nucleated RBC % (auto) 0.0 Anion Gap 8 L Estim Creat Clear Calc 70.2 Estimated GFR > 60 Random Glucose 108 Calcium 8.1 L Total Bilirubin 0.6 AST 34 ALT 16 Alkaline Phosphatase 103 Total Protein 6.4 L Albumin 2.8 L Assessment and Plan (1) BPH (benign prostatic hyperplasia): Status: Acute Plan 79 year old male with vascular dementia, BPH, hypotension, acute on chronic subdural hematoma, GERD admitted to [facility] for further treatment of Dementia with behavioral disturbances. Vascular dementia/Aggression. Treatment per psych team. Patient accepted oral medication today-this is waxing and waning Patient not consistently eating or drinking. Reviewed most with family, family does not wish to have any further workups including labs, imaging, testing. They do not desire feeding tube, intravenous fluids, dialysis, resuscitative measures. Family wishes comfort measures only, low-dose morphine added for comfort. MOLST updated. He continues on Valium SW working with family for appropriate DC planning BPH/Urinary retention Patient has been voiding at times, still requiring intermittent catheterizing Continue Finesteride and Flomax, patient has been refusing Will need outpatient urology follow up. Urine cytology with no malignant cells 11/29/2024 Bladder scan Q 6 hours and SC greater than 350 ccs Has been afebrile Would not recommend any further urine cultures unless there are clear signs and symptoms that localized to the urinary tract Avoid treating asymptomatic bacteriuria Acute on Chronic subdural hematoma CT scans of the head consistent with old subdural hematoma. No acute neurological change indicating need for repeat head CT Hypotension Continue Midodrine TID, and Florinef 0.2 mgs daily Anurag stockings Despite midodrine, BP's consistently low. Refused ECHO, Random cortisol level within normal limits Nephrology following GERD Continue PPI- Has been refusing Thank you for allowing me to participate in the care of this patient. Will follow as needed, please notify medical provider if any acute concerns or issues arise. Quality Stroke Does the patient have a stroke diagnosis?: No VTE Prior VTE?: No VTE Risk Level:: Medical - low VTE Device Contraindication: Treatment Not Indicated VTE Drug Contraindication: Treatment Not Indicated
[2024-12-22 20:00] VITALS: BP 89/54; PULSE 80; RESP 16; TEMP 36; O2SAT 96
[2024-12-23 08:00] VITALS: BP 75/51; PULSE 80; O2SAT 98
[2024-12-23] MEDS: diazePAM 10 MG/2 ML CARTRIDGE 5 MG IM (09:25)
[2024-12-23] MEDS: OLANZapine 10 MG VIAL 2.5 MG IM (09:26)
--- NOTE | 2024-12-23 12:03 | MHC.CLN ---
F/U PATIENT STATUS CHANGED TO COMFORT MEASURES ONLY. DIET RX REGULAR, CHOPPED. VARIABLE PO INTAKE. ENSURE SUPPLEMENT DISCONTINUED. SUPPLEMENT/SNACKS AVAILABLE ON UNIT IF DESIRED.
--- NOTE | 2024-12-23 16:30 | HO.PSYCHPN ---
Subjective Subjective Date of Service: 12/23/24 Reason For Visit: agitation Subjective Notes: Conditional Voluntary Healthcare Proxy: Yes Interim History: Pt slept through the night. He was up for breakfast but later felt asleep after receiving medication. Less irritable and accepting more care. Review of Systems Review of Systems Unable to participate in review of systems due to mental status Yes all other systems are reviewed and are negative, Unobtainable due to mental condition and Unobtainable due to mental status Mental Status Exam Mental Status Exam Narrative: Appearance: wearing hospital gown, thin, fair hygiene, in NAD Behavior: Intermittently agitated Psychomotor: Intermittently agitated Speech: mostly clear, normal rate/rhythm/volume, spontaneous TP: mostly linear TC:various things, not much expressed Mood: irritable Affect: congruent SI: denies HI: denies VH/AH: no overt signs Delusions: no delusional content reported Insight/judgment: impaired Diagnostics Vital Signs (24Hr): Vital Signs - 24 hr 12/22/24 20:00 12/23/24 08:00 Temperature 96.8 F Pulse Rate 80 80 Respiratory Rate 16 Blood Pressure 89/54 L 75/51 L Pulse Oximetry 96 98 Oxygen Delivery Method Room Air BMI result Body Mass Index 20.6 Labs 12/21/24 15:02 12/21/24 15:02 Imaging Radiology Impressions: ITS Impressions Clavicle X-Ray 11/30/24 08:08 IMPRESSION: Inferiorly displaced fracture distal right clavicle, probable old. Degenerative changes, right shoulder. Consider calcific tendinosis/tendinopathy, supraspinatus. Electronically signed by: Raghav Porras MD 11/30/2024 09:28 AM EDT RP Head CT 12/06/24 10:46 IMPRESSION: Continued evolution of a right frontoparietal subdural hematoma measuring up to 6 mm in thickness with mild mass effect. No intracranial hemorrhage or other acute intracranial abnormality. Electronically signed by: Miguel Ness MD 12/06/2024 11:23 AM EDT RP Elbow X-Ray 12/07/24 09:11 IMPRESSION: No evidence of fracture of the right elbow. Electronically signed by: Blayne Avila MD 12/07/2024 09:43 AM EDT Elbow X-Ray 12/07/24 09:13 IMPRESSION: No evidence of fracture of the left elbow. Electronically signed by: Blayne Avila MD 12/07/2024 09:44 AM EDT RP Humerus X-Ray 12/07/24 14:02 IMPRESSION: No acute fracture, left humerus. No change Electronically signed by: Raghav Porras MD 12/07/2024 02:14 PM EDT RP Medications Medications Current Medications Acetaminophen (Acetaminophen 325 Mg Tablet) 650 mg PO Q6H PRN PRN Reason: Headache/Pain, Scale 1-10 Last Admin: 12/11/24 20:19 Dose: 650 mg Al Hydroxide/Mg Hydroxide (Magnesium Hydrox/Alum Hydrox 30 Ml Oral.Susp) 30 ml PO Q6H PRN PRN Reason: Heartburn/Nausea Atorvastatin Calcium (Atorvastatin Calcium 80 Mg Tablet) 80 mg PO DAILY [facility] Last Admin: 12/23/24 09:38 Dose: Not Given Bisacodyl (Bisacodyl 10 Mg Supp.Rect) 10 mg LA DAILY PRN PRN Reason: Constipation Last Admin: 12/08/24 16:44 Dose: 10 mg Diazepam (Diazepam 2 Mg Tablet) 2 mg PO TID [facility] Last Admin: 12/23/24 14:57 Dose: Not Given Diazepam (Diazepam 10 Mg/2 Ml Cartridge) 5 mg IM TID PRN PRN Reason: if refuses Po,hold ifsedation Last Admin: 12/23/24 09:25 Dose: 5 mg Finasteride (Finasteride 5 Mg Tablet) 5 mg PO DAILY [facility] Last Admin: 12/23/24 09:37 Dose: Not Given Fludrocortisone Acetate (Fludrocortisone Acetate 0.1 Mg Tablet) 0.2 mg PO DAILY [facility] Last Admin: 12/23/24 09:37 Dose: Not Given Hydrocortisone (Hydrocortisone 1 % Ointment 28.35 Gm Tube) 1 appl TOPICAL BID [facility]; Protocol Last Admin: 12/23/24 09:37 Dose: Not Given Magnesium Hydroxide (Milk Of Magnesia 30 Ml Oral.Susp) 30 ml PO DAILY PRN PRN Reason: Constipation Melatonin (Melatonin 3 Mg Tablet) 6 mg PO BEDTIME [facility] Last Admin: 12/22/24 22:27 Dose: Not Given Midodrine (Midodrine Hcl 10 Mg Tablet) 10 mg PO TIDWM [facility] Last Admin: 12/23/24 14:58 Dose: Not Given Mirtazapine (Mirtazapine 15 Mg Tablet) 15 mg PO BEDTIME [facility] Last Admin: 12/22/24 22:27 Dose: Not Given Morphine Sulfate (Morphine Sulfate Oral Reina 10 Mg/5 Ml Solution) 2.5 mg PO Q4H PRN PRN Reason: SOB/Pain Olanzapine (Olanzapine 5 Mg Tablet) 5 mg PO Q6H PRN PRN Reason: agitation Olanzapine (Olanzapine 2.5 Mg Tablet) 2.5 mg PO TID [facility] Last Admin: 12/23/24 14:57 Dose: Not Given Olanzapine (Olanzapine 10 Mg Vial) 2.5 mg IM BID PRN PRN Reason: if refuses oral olanzapine Last Admin: 12/23/24 09:26 Dose: 2.5 mg Omeprazole (Omeprazole 20 Mg Capsule.Dr) 20 mg PO DAILY@0630 [facility] Last Admin: 12/23/24 05:31 Dose: Not Given Senna (Sennosides 8.6 Mg Tablet) 8.6 mg PO Q12H PRN PRN Reason: Constipation Sodium Biphosphate/Sodium Phosphate (Sodium Phosphate,[place]ache-Dibasic 133 Ml Enema) 118 ml LA DAILY PRN PRN Reason: Constipation Tamsulosin HCl (Tamsulosin Hcl 0.4 Mg Capsule) 0.4 mg PO DAILY [facility] Last Admin: 12/23/24 09:36 Dose: Not Given Trazodone HCl (Trazodone Hcl 50 Mg Tablet) 50 mg PO BEDTIME PRN PRN Reason: Insomnia Last Admin: 12/11/24 20:18 Dose: 50 mg Valproic Acid (Valproic Acid Liquid 250 Mg/5 Ml Solution) 250 mg PO BID [facility] Last Admin: 12/23/24 09:36 Dose: Not Given Allergies Allergies Allergy/AdvReac Type Severity Reaction Status Date / Time No Known Allergies Allergy Verified 11/30/24 02:25 Assessment & Plan Assessment & Plan (1) Major neurocognitive disorder due to multiple etiologies, with psychotic disturbance: Status: Acute Code(s): F02.82 - Dementia in other diseases classified elsewhere, unspecified severity, with psychotic disturbance (2) BPH (benign prostatic hyperplasia): Status: Acute Code(s): N40.0 - Benign prostatic hyperplasia without lower urinary tract symptoms (3) Lewy body dementia with psychotic disturbance: Status: Acute Code(s): G31.83 - Neurocognitive disorder with Lewy bodies; F02.82 - Dementia in other diseases classified elsewhere, unspecified severity, with psychotic disturbance Plan Mr. Quintero is a 79 year-old male with hx of Dementia, it does appear to be of Lewy Body with periods of visual hallucinations, autonomic dysfunction, some degree of fluctuation in terms of orientation. HCP has been invoked, he is CV by HCP. Will continue seroquel for now and assess efficacy. PLAN 12/05 d/c seroquel, continue only risperidone. continue to monitor hotn, on midodrine. 12/06 hit head, ordered head CT no new intracraneal bleed. subdural hematoma noted again. continue bladder scans q6h straigh cath if pvr>500cc 12/07 continue tx. added low dose clonazepam 0.125mg po TID. 12/08 continue tx. 12/09 add low dose depakote 125mg PO BID. Note pt has very low albumin level (check free VPA, instead or total). continue risperidone, no EPS noted. Continue low dose of clonazepam. 12/10: no change today 12/11: aggressive, refusing meds - no treatment plan change yet 12/12 increase depakote to 250mg po BID, continue all other medications. 12/13 change clonazepam for valium 5mg po TID, back IM per HCP. change risperidone for low dose prolixin so he can receive back IM if not taking po per HCP. 12/14 continue tx. appears calmer today. 12/15 continue tx. 12/16 continue tx. 12/17 remains intermittently combative and today hit [facility] [place]. Refusing all meds. -Has been having very little fluid intake over past 2 days so will get labs -Patient's nurse, Etelvina Gleason reviewed microbiology and teletypewriter installer agrees that current antibiotic should likely be changed given sensitivities; hospitalist consult placed PLAN: -DC Ceftin (not indicated) -START Ampicillin 500mg q6h for 10 days (Ampicillin is sensitive and comes in IM) 12/18 same presentation Bun/Cr grossly WNL Continue Ampicillin 500mg q6h for 10 days (Ampicillin is sensitive and comes in IM) 12/19 continues to present as irritable, significant decrease in oral intake in past 2 days. refusing other medications. pending CMP/CBC. Hospitalist following. Left VM for , HCP, Yesica with call back number. 12/20 continues to present with intermittent agitation and refusing care at times, irritable and combative with direct care. 12/21 will change prolixin to olanzapine 2.5mg po TID, back IM limited to BID, not TID to avoid several IM in one day and also bioavailability of olanzapine higher when given IM. 12/22 continue tx. family meeting to discuss goals of care including CUSTOMER RELATIONS ADVISOR. 12/23 continue tx. hold giving IM if pt sedated/somnolent. Reason for continued inpatient stay Substantial Risk for: inability to function Time Spent With Patient Time: Total time managing care of this patient today ____ minutes.
[2024-12-23 20:00] VITALS: BP 85/55; PULSE 85; RESP 17; TEMP 36.6; O2SAT 95
[2024-12-24] MEDS: diazePAM 10 MG/2 ML CARTRIDGE 5 MG IM ×3 (11:37→22:18)
--- NOTE | 2024-12-24 14:07 | P.PNPSI_ITS ---
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 - though being given psych meds for agita- bladder scanning q shift with cathetertzation as needed speech and swallow eval - getting crushed meds when he does take po , pureed feeds Profound confusion Medication Compliance: Intermittent Review of Systems Acute medical concerns: Yes declining mental condition- Review of Systems: as stated above Mental Status Exam Mental Status Exam Narrative: lying in bed apparently sleeping, does not respond to provider calling his name breathing comfortably Diagnostics Vital Signs (24Hr): Vital Signs - 24 hr 12/23/24 20:00 Temperature 98 F Pulse Rate 85 Respiratory Rate 17 Blood Pressure 85/55 L Pulse Oximetry 95 Oxygen Delivery Method Room Air BMI result Body Mass Index 20.6 Labs 12/21/24 15:02 12/21/24 15:02 Imaging Radiology Impressions: ITS Impressions Clavicle X-Ray 11/30/24 08:08 IMPRESSION: Inferiorly displaced fracture distal right clavicle, probable old. Degenerative changes, right shoulder. Consider calcific tendinosis/tendinopathy, supraspinatus. Electronically signed by: Raghav Porras MD 11/30/2024 09:[address] 12/06/24 10:46 IMPRESSION: Continued evolution of a right frontoparietal subdural hematoma measuring up to 6 mm in thickness with mild mass effect. No intracranial hemorrhage or other acute intracranial abnormality. Electronically signed by: Miguel Ness MD 12/06/2024 11:23 AM EDT RP Elbow X-Ray 12/07/24 09:11 IMPRESSION: No evidence of fracture of the right elbow. Electronically signed by: Blayne Avila MD 12/07/2024 09:43 AM EDT RP Elbow X-Ray 12/07/24 09:13 IMPRESSION: No evidence of fracture of the left elbow. Electronically signed by: Blayne Avila MD 12/07/2024 09:44 AM EDT RP Humerus X-Ray 12/07/24 14:02 IMPRESSION: No acute fracture, left humerus. No change Electronically signed by: Raghav Porras MD 12/07/2024 02:14 PM EDT RP Medications Medications Current Medications Acetaminophen (Acetaminophen 325 Mg Tablet) 650 mg PO Q6H PRN PRN Reason: Headache/Pain, Scale 1-10 Last Admin: 12/11/24 20:19 Dose: 650 mg Al Hydroxide/Mg Hydroxide (Magnesium Hydrox/Alum Hydrox 30 Ml Oral.Susp) 30 ml PO Q6H PRN PRN Reason: Heartburn/Nausea Atorvastatin Calcium (Atorvastatin Calcium 80 Mg Tablet) 80 mg PO DAILY [facility] Last Admin: 12/24/24 08:30 Dose: Not Given Bisacodyl (Bisacodyl 10 Mg Supp.Rect) 10 mg NV DAILY PRN PRN Reason: Constipation Last Admin: 12/08/24 16:44 Dose: 10 mg Diazepam (Diazepam 2 Mg Tablet) 2 mg PO TID [facility] Last Admin: 12/24/24 11:29 Dose: Not Given Diazepam (Diazepam 10 Mg/2 Ml Cartridge) 5 mg IM TID PRN PRN Reason: if refuses Po,hold ifsedation Last Admin: 12/24/24 11:37 Dose: 5 mg Finasteride (Finasteride 5 Mg Tablet) 5 mg PO DAILY [facility] Last Admin: 12/24/24 08:31 Dose: Not Given Fludrocortisone Acetate (Fludrocortisone Acetate 0.1 Mg Tablet) 0.2 mg PO DAILY [facility] Last Admin: 12/24/24 08:31 Dose: Not Given Hydrocortisone (Hydrocortisone 1 % Ointment 28.35 Gm Tube) 1 appl TOPICAL BID [facility]; Protocol Last Admin: 12/24/24 08:29 Dose: Not Given Magnesium Hydroxide (Milk Of Magnesia 30 Ml Oral.Susp) 30 ml PO DAILY PRN PRN Reason: Constipation Melatonin (Melatonin 3 Mg Tablet) 6 mg PO BEDTIME [facility] Last Admin: 12/23/24 21:39 Dose: Not Given Midodrine (Midodrine Hcl 10 Mg Tablet) 10 mg PO TIDWM [facility] Last Admin: 12/24/24 11:44 Dose: Not Given Mirtazapine (Mirtazapine 15 Mg Tablet) 15 mg PO BEDTIME [facility] Last Admin: 12/23/24 21:39 Dose: Not Given Morphine Sulfate (Morphine Sulfate Oral Reina 10 Mg/5 Ml Solution) 2.5 mg PO Q4H PRN PRN Reason: SOB/Pain Olanzapine (Olanzapine 5 Mg Tablet) 5 mg PO Q6H PRN PRN Reason: agitation Olanzapine (Olanzapine 2.5 Mg Tablet) 2.5 mg PO TID [facility] Last Admin: 12/24/24 11:32 Dose: Not Given Olanzapine (Olanzapine 10 Mg Vial) 2.5 mg IM BID PRN PRN Reason: if refuses oral olanzapine Last Admin: 12/23/24 09:26 Dose: 2.5 mg Omeprazole (Omeprazole 20 Mg Capsule.Dr) 20 mg PO DAILY@0630 [facility] Last Admin: 12/24/24 06:40 Dose: Not Given Senna (Sennosides 8.6 Mg Tablet) 8.6 mg PO Q12H PRN PRN Reason: Constipation Sodium Biphosphate/Sodium Phosphate (Sodium Phosphate,Garvin-Dibasic 133 Ml Enema) 118 ml NV DAILY PRN PRN Reason: Constipation Tamsulosin HCl (Tamsulosin Hcl 0.4 Mg Capsule) 0.4 mg PO DAILY [facility] Last Admin: 12/24/24 08:31 Dose: Not Given Trazodone HCl (Trazodone Hcl 50 Mg Tablet) 50 mg PO BEDTIME PRN PRN Reason: Insomnia Last Admin: 12/11/24 20:18 Dose: 50 mg Valproic Acid (Valproic Acid Liquid 250 Mg/5 Ml Solution) 250 mg PO BID [facility] Last Admin: 12/24/24 08:32 Dose: Not Given Allergies Allergies Allergy/AdvReac Type Severity Reaction Status Date / Time No Known Allergies Allergy Verified 11/30/24 02:25 Assessment & Plan Assessment & Plan (1) Major neurocognitive disorder due to multiple etiologies, with psychotic disturbance: Status: Acute Code(s): F02.82 - Dementia in other diseases classified elsewhere, unspecified severity, with psychotic disturbance (2) BPH (benign prostatic hyperplasia): Status: Acute Code(s): N40.0 - Benign prostatic hyperplasia without lower urinary tract symptoms (3) Lewy body dementia with psychotic disturbance: Status: Acute Code(s): G31.83 - Neurocognitive disorder with Lewy bodies; F02.82 - Dementia in other diseases classified elsewhere, unspecified severity, with psychotic disturbance Plan Mr. Quintero is a 79 year-old male with hx of Dementia, it does appear to be of Lewy Body with periods of visual hallucinations, autonomic dysfunction, some degree of fluctuation in terms of orientation. HCP has been invoked, he is CV by HCP. Will continue seroquel for now and assess efficacy. PLAN 12/05 d/c seroquel, continue only risperidone. continue to monitor hotn, on midodrine. 12/06 hit head, ordered head CT no new intracraneal bleed. subdural hematoma noted again. continue bladder scans q6h straigh cath if pvr>500cc 12/07 continue tx. added low dose clonazepam 0.125mg po TID. 12/08 continue tx. 12/09 add low dose depakote 125mg PO BID. Note pt has very low albumin level (check free VPA, instead or total). continue risperidone, no EPS noted. Continue low dose of clonazepam. 12/10: no change today 12/11: aggressive, refusing meds - no treatment plan change yet 12/12 increase depakote to 250mg po BID, continue all other medications. 12/13 change clonazepam for valium 5mg po TID, back IM per HCP. change risperidone for low dose prolixin so he can receive back IM if not taking po per HCP. 12/14 continue tx. appears calmer today. 12/15 continue tx. 12/16 continue tx. 12/17 remains intermittently combative and today hit [facility]. Refusing all meds. -Has been having very little fluid intake over past 2 days so will get labs -Patient's nurse, Etelvina Gleason reviewed microbiology and web content writer agrees that current antibiotic should likely be changed given sensitivities; hospitalist consult placed PLAN: -DC Ceftin (not indicated) -START Ampicillin 500mg q6h for 10 days (Ampicillin is sensitive and comes in IM) 12/18 same presentation Bun/Cr grossly WNL Continue Ampicillin 500mg q6h for 10 days (Ampicillin is sensitive and comes in IM) 12/19 continues to present as irritable, significant decrease in oral intake in past 2 days. refusing other medications. pending CMP/CBC. Hospitalist following. Left for , HCP, Yesica with call back number. 12/20 continues to present with intermittent agitation and refusing care at times, irritable and combative with direct care. 12/21 will change prolixin to olanzapine 2.5mg po TID, back IM limited to BID, not TID to avoid several IM in one day and also bioavailability of olanzapine higher when given IM. 12/22 continue tx. family meeting to discuss goals of care including [employer]. 12/23 continue tx. hold giving IM if pt sedated/somnolent. 927 when missing doses of meds pt gets agitated- so given IMs today at med times- Reason for continued inpatient stay Substantial Risk for: inability to function and med/psych decompensation Time Spent With Patient Time: Total time managing care of this patient today ____ minutes.
[2024-12-24 20:00] VITALS: BP 115/62; PULSE 91; RESP 18; TEMP 36.6; O2SAT 98
[2024-12-24] MEDS: OLANZapine 10 MG VIAL 2.5 MG IM (22:16)
--- NOTE | 2024-12-25 07:22 | P.PNPSI_ITS ---
Subjective Subjective Date of Service: 12/25/24 Reason For Visit: agitation Subjective Notes: Conditional Voluntary (hcp) Healthcare Proxy: Yes Guardianship: No Medical Problems Affecting Mental Status: Yes (progressing depression) Interim History: 79 yo WM who is up today and verbal with provider- but giving one word answers for most part- largely aphasic- aide told me he want to go shopping- pt told me [employer] - reports needing socks, pants, shirts- earlier in day refuesd pos got Im zyprexa and diazepam- later took meds in applesauce , incontinence continues Medication Compliance: Intermittent Review of Systems Medical Review of Systems: unchanged Mental Status Exam Mental Status Exam Patient Appearance: Unkempt Patient Orientation: Person Level of Consciousness: Awake Patient Behavior: Dependent, Combative (during adls- suggested may be give prn prior to attempt at adls - ) and Poor Eye Contact Mood Description: Calm Affect Description: Constricted Patient Cognition Impaired: Yes Ability to Follow Directions: Poor Speech Pattern: Garbled and Poor Articulation Judgement: Poor Diagnostics Vital Signs (24Hr): Vital Signs - 24 hr 12/24/24 20:00 Temperature 97.9 F Pulse Rate 91 Respiratory Rate 18 Blood Pressure 115/62 Pulse Oximetry 98 Oxygen Delivery Method Room Air BMI result Body Mass Index 20.6 Labs 12/21/24 15:02 12/21/24 15:02 Imaging Radiology Impressions: ITS Impressions Clavicle X-Ray 11/30/24 08:08 IMPRESSION: Inferiorly displaced fracture distal right clavicle, probable old. Degenerative changes, right shoulder. Consider calcific tendinosis/tendinopathy, supraspinatus. Electronically signed by: Raghav Porras MD 11/30/2024 09:[address] 12/06/24 10:46 IMPRESSION: Continued evolution of a right frontoparietal subdural hematoma measuring up to 6 mm in thickness with mild mass effect. No intracranial hemorrhage or other acute intracranial abnormality. Electronically signed by: Miguel Ness MD 12/06/2024 11:23 AM EDT RP Elbow X-Ray 12/07/24 09:11 IMPRESSION: No evidence of fracture of the right elbow. Electronically signed by: Blayne Avila MD 12/07/2024 09:43 AM EDT RP Elbow X-Ray 12/07/24 09:13 IMPRESSION: No evidence of fracture of the left elbow. Electronically signed by: Blayne Avila MD 12/07/2024 09:44 AM EDT RP Humerus X-Ray 12/07/24 14:02 IMPRESSION: No acute fracture, left humerus. No change Electronically signed by: Raghav Porras MD 12/07/2024 02:14 PM EDT RP Medications Medications Current Medications Acetaminophen (Acetaminophen 325 Mg Tablet) 650 mg PO Q6H PRN PRN Reason: Headache/Pain, Scale 1-10 Last Admin: 12/11/24 20:19 Dose: 650 mg Al Hydroxide/Mg Hydroxide (Magnesium Hydrox/Alum Hydrox 30 Ml Oral.Susp) 30 ml PO Q6H PRN PRN Reason: Heartburn/Nausea Atorvastatin Calcium (Atorvastatin Calcium 80 Mg Tablet) 80 mg PO DAILY [facility] Last Admin: 12/24/24 08:30 Dose: Not Given Bisacodyl (Bisacodyl 10 Mg Supp.Rect) [address] DAILY PRN PRN Reason: Constipation Last Admin: 12/08/24 16:44 Dose: 10 mg Diazepam (Diazepam 2 Mg Tablet) 2 mg PO TID [facility] Last Admin: 12/24/24 23:52 Dose: Not Given Diazepam (Diazepam 10 Mg/2 Ml Cartridge) 5 mg IM TID PRN PRN Reason: if refuses Po,hold ifsedation Last Admin: 12/24/24 22:18 Dose: 5 mg Finasteride (Finasteride 5 Mg Tablet) 5 mg PO DAILY [facility] Last Admin: 12/24/24 08:31 Dose: Not Given Fludrocortisone Acetate (Fludrocortisone Acetate 0.1 Mg Tablet) 0.2 mg PO DAILY [facility] Last Admin: 12/24/24 08:31 Dose: Not Given Hydrocortisone (Hydrocortisone 1 % Ointment 28.35 Gm Tube) 1 appl TOPICAL BID [facility]; Protocol Last Admin: 12/24/24 23:51 Dose: Not Given Magnesium Hydroxide (Milk Of Magnesia 30 Ml Oral.Susp) 30 ml PO DAILY PRN PRN Reason: Constipation Melatonin (Melatonin 3 Mg Tablet) 6 mg PO BEDTIME [facility] Last Admin: 12/24/24 23:51 Dose: Not Given Midodrine (Midodrine Hcl 10 Mg Tablet) 10 mg PO TIDWM [facility] Last Admin: 12/24/24 16:17 Dose: Not Given Mirtazapine (Mirtazapine 15 Mg Tablet) 15 mg PO BEDTIME [facility] Last Admin: 12/24/24 22:20 Dose: Not Given Morphine Sulfate (Morphine Sulfate Oral Reina 10 Mg/5 Ml Solution) 2.5 mg PO Q4H PRN PRN Reason: SOB/Pain Olanzapine (Olanzapine 5 Mg Tablet) 5 mg PO Q6H PRN PRN Reason: agitation Olanzapine (Olanzapine 2.5 Mg Tablet) 2.5 mg PO TID [facility] Last Admin: 12/24/24 22:20 Dose: Not Given Olanzapine (Olanzapine 10 Mg Vial) 2.5 mg IM BID PRN PRN Reason: if refuses oral olanzapine Last Admin: 12/24/24 22:16 Dose: 2.5 mg Omeprazole (Omeprazole 20 Mg Capsule.Dr) 20 mg PO DAILY@0630 [facility] Last Admin: 12/25/24 06:26 Dose: Not Given Senna (Sennosides 8.6 Mg Tablet) 8.6 mg PO Q12H PRN PRN Reason: Constipation Sodium Biphosphate/Sodium Phosphate (Sodium Phosphate,Davie-Dibasic 133 Ml Enema) [address] DAILY PRN PRN Reason: Constipation Tamsulosin HCl (Tamsulosin Hcl 0.4 Mg Capsule) 0.4 mg PO DAILY [facility] Last Admin: 12/24/24 08:31 Dose: Not Given Trazodone HCl (Trazodone Hcl 50 Mg Tablet) 50 mg PO BEDTIME PRN PRN Reason: Insomnia Last Admin: 12/11/24 20:18 Dose: 50 mg Valproic Acid (Valproic Acid Liquid 250 Mg/5 Ml Solution) 250 mg PO BID [facility] Last Admin: 12/24/24 22:20 Dose: Not Given Allergies Allergies Allergy/AdvReac Type Severity Reaction Status Date / Time No Known Allergies Allergy Verified 11/30/24 02:25 Assessment & Plan Assessment & Plan (1) Major neurocognitive disorder due to multiple etiologies, with psychotic disturbance: Status: Acute Code(s): F02.82 - Dementia in other diseases classified elsewhere, unspecified severity, with psychotic disturbance (2) BPH (benign prostatic hyperplasia): Status: Acute Code(s): N40.0 - Benign prostatic hyperplasia without lower urinary tract symptoms (3) Lewy body dementia with psychotic disturbance: Status: Acute Code(s): G31.83 - Neurocognitive disorder with Lewy bodies; F02.82 - Dementia in other diseases classified elsewhere, unspecified severity, with psychotic disturbance Plan Mr. Quintero is a 79 year-old male with hx of Dementia, it does appear to be of Lewy Body with periods of visual hallucinations, autonomic dysfunction, some degree of fluctuation in terms of orientation. HCP has been invoked, he is CV by HCP. Will continue seroquel for now and assess efficacy. PLAN 12/05 d/c seroquel, continue only risperidone. continue to monitor hotn, on midodrine. 12/06 hit head, ordered head CT no new intracraneal bleed. subdural hematoma noted again. continue bladder scans q6h straigh cath if pvr>500cc 12/07 continue tx. added low dose clonazepam 0.125mg po TID. 12/08 continue tx. 12/09 add low dose depakote 125mg PO BID. Note pt has very low albumin level (check free VPA, instead or total). continue risperidone, no EPS noted. Continue low dose of clonazepam. 12/10: no change today 12/11: aggressive, refusing meds - no treatment plan change yet 12/12 increase depakote to 250mg po BID, continue all other medications. 12/13 change clonazepam for valium 5mg po TID, back IM per HCP. change risperidone for low dose prolixin so he can receive back IM if not taking po per HCP. 12/14 continue tx. appears calmer today. 12/15 continue tx. 12/16 continue tx. 12/17 remains intermittently combative and today hit [facility]. Refusing all meds. -Has been having very little fluid intake over past 2 days so will get labs -Patient's nurse, Etelvina Gleason reviewed microbiology and flex o writer operator agrees that current antibiotic should likely be changed given sensitivities; hospitalist consult placed PLAN: -DC Ceftin (not indicated) -START Ampicillin 500mg q6h for 10 days (Ampicillin is sensitive and comes in IM) 12/18 same presentation Bun/Cr grossly WNL Continue Ampicillin 500mg q6h for 10 days (Ampicillin is sensitive and comes in IM) 12/19 continues to present as irritable, significant decrease in oral intake in past 2 days. refusing other medications. pending CMP/CBC. Hospitalist following. Left VM for , HCP, Yesica with call back number. 12/20 continues to present with intermittent agitation and refusing care at times, irritable and combative with direct care. 12/21 will change prolixin to olanzapine 2.5mg po TID, back IM limited to BID, not TID to avoid several IM in one day and also bioavailability of olanzapine higher when given IM. 12/22 continue tx. family meeting to discuss goals of care including [employer]. 12/23 continue tx. hold giving IM if pt sedated/somnolent. 927 when missing doses of meds pt gets agitated- so given IMs today at med times- 12/25/24 CTP Reason for continued inpatient stay Substantial Risk for: inability to function, rapid decompensation and med/psych decompensation Time Spent With Patient Time: Total time managing care of this patient today ____ minutes.
[2024-12-25 08:15] VITALS: BP 85/47; PULSE 69; RESP 16; TEMP 36.8; O2SAT 95
[2024-12-25] MEDS: OLANZapine 10 MG VIAL 2.5 MG IM ×2 (10:14→22:13)
[2024-12-25] MEDS: diazePAM 10 MG/2 ML CARTRIDGE 5 MG IM ×2 (10:14→22:06)
--- NOTE | 2024-12-25 10:35 | PC.NURSE ---
Pt accepted VS but refused all morning medications and stated I don't want these I just want to . RN administered 5mg IM Diazapam and 2.5mg IM Zyprexa per provider order if pt refuses PO valium and PO zyprexa. Pt allowed IM injections.
--- NOTE | 2024-12-25 10:36 | PC.NURSE ---
Pt b/p 85/47. Pt refused PO midodrin. RN educated pt on importance of Midodrin but pt continued to refused. Provider notified.
[2024-12-25 10:48] VITALS: BP 93/56; PULSE 83
--- NOTE | 2024-12-25 10:55 | PC.NURSE ---
RN rechecked pt b/p at 1048 and it was 93/56. Provider was notified and acknowledged 12pm Midodrin 10mg to be given early. Pt accepted medication crushed in applesauce.
--- NOTE | 2024-12-25 15:53 | PC.NURSE ---
RN approached pt to give his 1500 2mg diazepam and 2.5mg Zyprexa and pt was in bed sleeping. RN asked pt if he wanted to take his 1500 medication and he groaned and rolled over in bed. Pt continued to sleep and appeared sedated. Pt IM diazepam held d/t sedation.
--- NOTE | 2024-12-25 16:54 | PC.NURSE ---
Pt refused VS, and 5pm Midodrine. RN educated pt on the importance of this medication and pt still refused.
[2024-12-25 20:00] VITALS: BP 96/53; PULSE 72; RESP 16; TEMP 36.8; O2SAT 97
--- NOTE | 2024-12-26 09:17 | P.PNPSI_ITS ---
Subjective Subjective Date of Service: 12/26/24 Reason For Visit: agitation Subjective Notes: Conditional Voluntary Healthcare Proxy: Yes Interim History: Pt had difficulty sleeping last night. He has declined most medications Thursday and Thursday. Periods of combative behaviors, but less. Continues to have POV, needing to be straight cath. VS stable but low on midodrine. Medication Compliance: Yes Review of Systems Review of Systems Unable to participate in review of systems due to mental status Yes all other systems are reviewed and are negative, Unobtainable due to mental condition and Unobtainable due to mental status Mental Status Exam Mental Status Exam Narrative: lying in bed apparently sleeping, does not respond to provider calling his name breathing comfortably Diagnostics Vital Signs (24Hr): Vital Signs - 24 hr 12/25/24 10:48 12/25/24 20:00 Temperature 98.2 F Pulse Rate 83 72 Respiratory Rate 16 Blood Pressure 93/56 L 96/53 L Pulse Oximetry 97 Oxygen Delivery Method Room Air BMI result Body Mass Index 20.6 Labs 12/21/24 15:02 12/21/24 15:02 Imaging Radiology Impressions: ITS Impressions Clavicle X-Ray 11/30/24 08:08 IMPRESSION: Inferiorly displaced fracture distal right clavicle, probable old. Degenerative changes, right shoulder. Consider calcific tendinosis/tendinopathy, supraspinatus. Electronically signed by: Raghav Porras MD 11/30/2024 09:[address] 12/06/24 10:46 IMPRESSION: Continued evolution of a right frontoparietal subdural hematoma measuring up to 6 mm in thickness with mild mass effect. No intracranial hemorrhage or other acute intracranial abnormality. Electronically signed by: Miguel Ness MD 12/06/2024 11:23 AM EDT RP Elbow X-Ray 12/07/24 09:11 IMPRESSION: No evidence of fracture of the right elbow. Electronically signed by: Blayne Avila MD 12/07/2024 09:43 AM EDT Elbow X-Ray 12/07/24 09:13 IMPRESSION: No evidence of fracture of the left elbow. Electronically signed by: Blayne Avila MD 12/07/2024 09:44 AM EDT RP Humerus X-Ray 12/07/24 14:02 IMPRESSION: No acute fracture, left humerus. No change Electronically signed by: Raghav Porras MD 12/07/2024 02:14 PM EDT RP Medications Medications Current Medications Acetaminophen (Acetaminophen 325 Mg Tablet) 650 mg PO Q6H PRN PRN Reason: Headache/Pain, Scale 1-10 Last Admin: 12/11/24 20:19 Dose: 650 mg Al Hydroxide/Mg Hydroxide (Magnesium Hydrox/Alum Hydrox 30 Ml Oral.Susp) 30 ml PO Q6H PRN PRN Reason: Heartburn/Nausea Atorvastatin Calcium (Atorvastatin Calcium 80 Mg Tablet) 80 mg PO DAILY [facility] Last Admin: 12/25/24 09:09 Dose: Not Given Bisacodyl (Bisacodyl 10 Mg Supp.Rect) 10 mg MS DAILY PRN PRN Reason: Constipation Last Admin: 12/08/24 16:44 Dose: 10 mg Diazepam (Diazepam 2 Mg Tablet) 2 mg PO TID [facility] Last Admin: 12/25/24 22:15 Dose: Not Given Diazepam (Diazepam 10 Mg/2 Ml Cartridge) 5 mg IM TID PRN PRN Reason: if refuses Po,hold ifsedation Last Admin: 12/25/24 22:06 Dose: 5 mg Finasteride (Finasteride 5 Mg Tablet) 5 mg PO DAILY [facility] Last Admin: 12/25/24 09:10 Dose: Not Given Fludrocortisone Acetate (Fludrocortisone Acetate 0.1 Mg Tablet) 0.2 mg PO DAILY [facility] Last Admin: 12/25/24 09:10 Dose: Not Given Hydrocortisone (Hydrocortisone 1 % Ointment 28.35 Gm Tube) 1 appl TOPICAL BID [facility]; Protocol Last Admin: 12/25/24 22:15 Dose: Not Given Magnesium Hydroxide (Milk Of Magnesia 30 Ml Oral.Susp) 30 ml PO DAILY PRN PRN Reason: Constipation Melatonin (Melatonin 3 Mg Tablet) 6 mg PO BEDTIME [facility] Last Admin: 12/25/24 22:15 Dose: Not Given Midodrine (Midodrine Hcl 10 Mg Tablet) 10 mg PO TIDWM [facility] Last Admin: 12/25/24 16:54 Dose: Not Given Mirtazapine (Mirtazapine 15 Mg Tablet) 15 mg PO BEDTIME [facility] Last Admin: 12/25/24 22:15 Dose: Not Given Morphine Sulfate (Morphine Sulfate Oral Reina 10 Mg/5 Ml Solution) 2.5 mg PO Q4H PRN PRN Reason: SOB/Pain Olanzapine (Olanzapine 5 Mg Tablet) 5 mg PO Q6H PRN PRN Reason: agitation Olanzapine (Olanzapine 2.5 Mg Tablet) 2.5 mg PO TID [facility] Last Admin: 12/25/24 22:16 Dose: Not Given Olanzapine (Olanzapine 10 Mg Vial) 2.5 mg IM BID PRN PRN Reason: if refuses oral olanzapine Last Admin: 12/25/24 22:13 Dose: 2.5 mg Omeprazole (Omeprazole 20 Mg Capsule.Dr) 20 mg PO DAILY@0630 [facility] Last Admin: 12/25/24 06:26 Dose: Not Given Senna (Sennosides 8.6 Mg Tablet) 8.6 mg PO Q12H PRN PRN Reason: Constipation Sodium Biphosphate/Sodium Phosphate (Sodium Phosphate,[place]-Dibasic 133 Ml Enema) 118 ml MS DAILY PRN PRN Reason: Constipation Tamsulosin HCl (Tamsulosin Hcl 0.4 Mg Capsule) 0.4 mg PO DAILY [facility] Last Admin: 12/25/24 09:10 Dose: Not Given Trazodone HCl (Trazodone Hcl 50 Mg Tablet) 50 mg PO BEDTIME PRN PRN Reason: Insomnia Last Admin: 12/26/24 01:31 Dose: 50 mg Valproic Acid (Valproic Acid Liquid 250 Mg/5 Ml Solution) 250 mg PO BID [facility] Last Admin: 12/25/24 22:16 Dose: Not Given Allergies Allergies Allergy/AdvReac Type Severity Reaction Status Date / Time No Known Allergies Allergy Verified 11/30/24 02:25 Assessment & Plan Assessment & Plan (1) Major neurocognitive disorder due to multiple etiologies, with psychotic disturbance: Status: Acute Code(s): F02.82 - Dementia in other diseases classified elsewhere, unspecified severity, with psychotic disturbance (2) BPH (benign prostatic hyperplasia): Status: Acute Code(s): N40.0 - Benign prostatic hyperplasia without lower urinary tract symptoms (3) Lewy body dementia with psychotic disturbance: Status: Acute Code(s): G31.83 - Neurocognitive disorder with Lewy bodies; F02.82 - Dementia in other diseases classified elsewhere, unspecified severity, with psychotic disturbance Plan Mr. Quintero is a 79 year-old male with hx of Dementia, it does appear to be of Lewy Body with periods of visual hallucinations, autonomic dysfunction, some degree of fluctuation in terms of orientation. HCP has been invoked, he is CV by HCP. Will continue seroquel for now and assess efficacy. PLAN 12/05 d/c seroquel, continue only risperidone. continue to monitor hotn, on midodrine. 12/06 hit head, ordered head CT no new intracraneal bleed. subdural hematoma noted again. continue bladder scans q6h straigh cath if pvr>500cc 12/07 continue tx. added low dose clonazepam 0.125mg po TID. 12/08 continue tx. 12/09 add low dose depakote 125mg PO BID. Note pt has very low albumin level (check free VPA, instead or total). continue risperidone, no EPS noted. Continue low dose of clonazepam. 12/10: no change today 12/11: aggressive, refusing meds - no treatment plan change yet 12/12 increase depakote to 250mg po BID, continue all other medications. 12/13 change clonazepam for valium 5mg po TID, back IM per HCP. change risperidone for low dose prolixin so he can receive back IM if not taking po per HCP. 12/14 continue tx. appears calmer today. 12/15 continue tx. 12/16 continue tx. 12/17 remains intermittently combative and today hit [facility]. Refusing all meds. -Has been having very little fluid intake over past 2 days so will get labs -Patient's nurse, Etelvina Gleason reviewed microbiology and literary writer agrees that current antibiotic should likely be changed given sensitivities; hospitalist consult placed PLAN: -DC Ceftin (not indicated) -START Ampicillin 500mg q6h for 10 days (Ampicillin is sensitive and comes in IM) 12/18 same presentation Bun/Cr grossly WNL Continue Ampicillin 500mg q6h for 10 days (Ampicillin is sensitive and comes in IM) 12/19 continues to present as irritable, significant decrease in oral intake in past 2 days. refusing other medications. pending CMP/CBC. Hospitalist following. Left for , HCP, Yesica with call back number. 12/20 continues to present with intermittent agitation and refusing care at times, irritable and combative with direct care. 12/21 will change prolixin to olanzapine 2.5mg po TID, back IM limited to BID, not TID to avoid several IM in one day and also bioavailability of olanzapine higher when given IM. 12/22 continue tx. family meeting to discuss goals of care including SCROLL SAW OPERATOR. 12/23 continue tx. hold giving IM if pt sedated/somnolent. 927 when missing doses of meds pt gets agitated- so given IMs today at med times- 12/25/24 CTP 12/26 will simply regimen as he is not taking much medications po. d/c depakote, atorvastatin (now SCROLL SAW OPERATOR), remeron. will add schedule trazodone for sleep. continue olanzapine and back up IM. HOLD IM if pt sleeping or oversedated. Reason for continued inpatient stay Substantial Risk for: inability to function Time Spent With Patient Time: Total time managing care of this patient today ____ minutes.
[2024-12-26] MEDS: OLANZapine 10 MG VIAL 2.5 MG IM (12:30)
--- NOTE | 2024-12-26 16:04 | PC.NURSE ---
Pt 1:1 observed pt being constipated on toilet. This senior medical writer offered medication assistance. I don't want help with anything .
[2024-12-27 09:26] VITALS: BP 98/55; PULSE 71; RESP 15; TEMP 36.9; O2SAT 96
--- NOTE | 2024-12-27 11:07 | HO.PSYCHPN ---
Subjective Subjective Date of Service: 12/27/24 Reason For Visit: agitation Subjective Notes: Conditional Voluntary Healthcare Proxy: Yes Interim History: Pt only slept about 2 hrs. He declined most medications. Pt in bed, calmer, but does not provide much information. denies any physical concerns. somewhat guarded and does not engage in conversation with this video game script writer. Medication Compliance: Intermittent Review of Systems Review of Systems Unable to participate in review of systems due to mental status Yes all other systems are reviewed and are negative, Unobtainable due to mental condition and Unobtainable due to mental status Mental Status Exam Mental Status Exam Narrative: lying in bed apparently sleeping, does not respond to provider calling his name breathing comfortably Diagnostics Vital Signs (24Hr): Vital Signs - 24 hr 12/27/24 09:26 Temperature 98.5 F Pulse Rate 71 Respiratory Rate 15 Blood Pressure 98/55 L Pulse Oximetry 96 Oxygen Delivery Method Room Air BMI result Body Mass Index 20.6 Labs 12/21/24 15:02 12/21/24 15:02 Imaging Radiology Impressions: ITS Impressions Clavicle X-Ray 11/30/24 08:08 IMPRESSION: Inferiorly displaced fracture distal right clavicle, probable old. Degenerative changes, right shoulder. Consider calcific tendinosis/tendinopathy, supraspinatus. Electronically signed by: Raghav Porras MD 11/30/2024 09:28 AM EDT RP Head CT 12/06/24 10:46 IMPRESSION: Continued evolution of a right frontoparietal subdural hematoma measuring up to 6 mm in thickness with mild mass effect. No intracranial hemorrhage or other acute intracranial abnormality. Electronically signed by: Miguel Ness MD 12/06/2024 11:23 AM EDT RP Elbow X-Ray 12/07/24 09:11 IMPRESSION: No evidence of fracture of the right elbow. Electronically signed by: Blayne Avila MD 12/07/2024 09:43 AM EDT RP Elbow X-Ray 12/07/24 09:13 IMPRESSION: No evidence of fracture of the left elbow. Electronically signed by: Blayne Avila MD 12/07/2024 09:44 AM EDT RP Humerus X-Ray 12/07/24 14:02 IMPRESSION: No acute fracture, left humerus. No change Electronically signed by: Raghav Porras MD 12/07/2024 02:14 PM EDT Medications Medications Current Medications Acetaminophen (Acetaminophen 325 Mg Tablet) 650 mg PO Q6H PRN PRN Reason: Headache/Pain, Scale 1-10 Last Admin: 12/11/24 20:19 Dose: 650 mg Al Hydroxide/Mg Hydroxide (Magnesium Hydrox/Alum Hydrox 30 Ml Oral.Susp) 30 ml PO Q6H PRN PRN Reason: Heartburn/Nausea Bisacodyl (Bisacodyl 10 Mg Supp.Rect) 10 mg IN DAILY PRN PRN Reason: Constipation Last Admin: 12/08/24 16:44 Dose: 10 mg Diazepam (Diazepam 2 Mg Tablet) 2 mg PO TID [facility] Last Admin: 12/27/24 09:30 Dose: Not Given Diazepam (Diazepam 10 Mg/2 Ml Cartridge) 5 mg IM TID PRN PRN Reason: if refuses Po,hold ifsedation Last Admin: 12/25/24 22:06 Dose: 5 mg Finasteride (Finasteride 5 Mg Tablet) 5 mg PO DAILY [facility] Last Admin: 12/27/24 09:30 Dose: Not Given Fludrocortisone Acetate (Fludrocortisone Acetate 0.1 Mg Tablet) 0.2 mg PO DAILY [facility] Last Admin: 12/27/24 09:30 Dose: Not Given Hydrocortisone (Hydrocortisone 1 % Ointment 28.35 Gm Tube) 1 appl TOPICAL BID [facility]; Protocol Last Admin: 12/27/24 09:30 Dose: Not Given Magnesium Hydroxide (Milk Of Magnesia 30 Ml Oral.Susp) 30 ml PO DAILY PRN PRN Reason: Constipation Midodrine (Midodrine Hcl 10 Mg Tablet) 10 mg PO TIDWM [facility] Last Admin: 12/27/24 09:27 Dose: 10 mg Morphine Sulfate (Morphine Sulfate Oral Reina 10 Mg/5 Ml Solution) 2.5 mg PO Q4H PRN PRN Reason: SOB/Pain Olanzapine (Olanzapine 5 Mg Tablet) 5 mg PO Q6H PRN PRN Reason: agitation Olanzapine (Olanzapine 2.5 Mg Tablet) 2.5 mg PO TID [facility] Last Admin: 12/27/24 09:27 Dose: 2.5 mg Olanzapine (Olanzapine 10 Mg Vial) 2.5 mg IM BID PRN PRN Reason: if refuses oral olanzapine Last Admin: 12/26/24 12:30 Dose: 2.5 mg Omeprazole (Omeprazole 20 Mg Capsule.Dr) 20 mg PO DAILY@0630 [facility] Last Admin: 12/27/24 06:06 Dose: Not Given Senna (Sennosides 8.6 Mg Tablet) 8.6 mg PO Q12H PRN PRN Reason: Constipation Sodium Biphosphate/Sodium Phosphate (Sodium Phosphate,[place]-Dibasic 133 Ml Enema) 118 ml IN DAILY PRN PRN Reason: Constipation Tamsulosin HCl (Tamsulosin Hcl 0.4 Mg Capsule) 0.4 mg PO DAILY [facility] Last Admin: 12/27/24 09:30 Dose: Not Given Trazodone HCl (Trazodone Hcl 50 Mg Tablet) 50 mg PO BEDTIME PRN PRN Reason: Insomnia Last Admin: 12/26/24 01:31 Dose: 50 mg Trazodone HCl (Trazodone Hcl 50 Mg Tablet) 50 mg PO BEDTIME [facility] Last Admin: 12/26/24 22:03 Dose: Not Given Allergies Allergies Allergy/AdvReac Type Severity Reaction Status Date / Time No Known Allergies Allergy Verified 11/30/24 02:25 Assessment & Plan Assessment & Plan (1) Major neurocognitive disorder due to multiple etiologies, with psychotic disturbance: Status: Acute Code(s): F02.82 - Dementia in other diseases classified elsewhere, unspecified severity, with psychotic disturbance (2) BPH (benign prostatic hyperplasia): Status: Acute Code(s): N40.0 - Benign prostatic hyperplasia without lower urinary tract symptoms (3) Lewy body dementia with psychotic disturbance: Status: Acute Code(s): G31.83 - Neurocognitive disorder with Lewy bodies; F02.82 - Dementia in other diseases classified elsewhere, unspecified severity, with psychotic disturbance Plan Mr. Quintero is a 79 year-old male with hx of Dementia, it does appear to be of Lewy Body with periods of visual hallucinations, autonomic dysfunction, some degree of fluctuation in terms of orientation. HCP has been invoked, he is CV by HCP. Will continue seroquel for now and assess efficacy. PLAN 12/05 d/c seroquel, continue only risperidone. continue to monitor hotn, on midodrine. 12/06 hit head, ordered head CT no new intracraneal bleed. subdural hematoma noted again. continue bladder scans q6h straigh cath if pvr>500cc 12/07 continue tx. added low dose clonazepam 0.125mg po TID. 12/08 continue tx. 12/09 add low dose depakote 125mg PO BID. Note pt has very low albumin level (check free VPA, instead or total). continue risperidone, no EPS noted. Continue low dose of clonazepam. 12/10: no change today 12/11: aggressive, refusing meds - no treatment plan change yet 12/12 increase depakote to 250mg po BID, continue all other medications. 12/13 change clonazepam for valium 5mg po TID, back IM per HCP. change risperidone for low dose prolixin so he can receive back IM if not taking po per HCP. 12/14 continue tx. appears calmer today. 12/15 continue tx. 12/16 continue tx. 12/17 remains intermittently combative and today hit [facility]. Refusing all meds. -Has been having very little fluid intake over past 2 days so will get labs -Patient's nurse, Etelvina Gleason reviewed microbiology and video game script writer agrees that current antibiotic should likely be changed given sensitivities; hospitalist consult placed PLAN: -DC Ceftin (not indicated) -START Ampicillin 500mg q6h for 10 days (Ampicillin is sensitive and comes in IM) 12/18 same presentation Bun/Cr grossly WNL Continue Ampicillin 500mg q6h for 10 days (Ampicillin is sensitive and comes in IM) 12/19 continues to present as irritable, significant decrease in oral intake in past 2 days. refusing other medications. pending CMP/CBC. Hospitalist following. Left for , HCP, Yesica with call back number. 12/20 continues to present with intermittent agitation and refusing care at times, irritable and combative with direct care. 12/21 will change prolixin to olanzapine 2.5mg po TID, back IM limited to BID, not TID to avoid several IM in one day and also bioavailability of olanzapine higher when given IM. 12/22 continue tx. family meeting to discuss goals of care including PLANT OPERATIONS COORDINATOR. 12/23 continue tx. hold giving IM if pt sedated/somnolent. when missing doses of meds pt gets agitated- so given IMs today at med times- 12/25/24 CTP 12/26 will simply regimen as he is not taking much medications po. d/c depakote, atorvastatin (now PLANT OPERATIONS COORDINATOR), remeron. will add schedule trazodone for sleep. continue olanzapine and back up IM. HOLD IM if pt sleeping or oversedated. 12/27 increase trazodone at bedtime 100mg po qhs. continue to simply regimen including d/c omeprazole. Reason for continued inpatient stay Substantial Risk for: inability to function Time Spent With Patient Time: Total time managing care of this patient today ____ minutes.
--- NOTE | 2024-12-28 08:37 | HO.PSYCHPN ---
Subjective Subjective Date of Service: 12/28/24 Reason For Visit: agitation Subjective Notes: Conditional Voluntary Healthcare Proxy: Yes Interim History: pt with difficulty sleeping, awake most of the night. He was napping on and off during the day. He has had some food. Less combative but declines medications. Medication Compliance: Intermittent Review of Systems Review of Systems Unable to participate in review of systems due to mental status Yes all other systems are reviewed and are negative, Unobtainable due to mental condition and Unobtainable due to mental status Mental Status Exam Mental Status Exam Narrative: lying in bed apparently sleeping, does not respond to provider calling his name breathing comfortably Diagnostics Vital Signs (24Hr): Vital Signs - 24 hr 12/27/24 09:26 Temperature 98.5 F Pulse Rate 71 Respiratory Rate 15 Blood Pressure 98/55 L Pulse Oximetry 96 Oxygen Delivery Method Room Air BMI result Body Mass Index 20.6 Labs 12/21/24 15:02 12/21/24 15:02 Imaging Radiology Impressions: ITS Impressions Clavicle X-Ray 11/30/24 08:08 IMPRESSION: Inferiorly displaced fracture distal right clavicle, probable old. Degenerative changes, right shoulder. Consider calcific tendinosis/tendinopathy, supraspinatus. Electronically signed by: Raghav Porras MD 11/30/2024 09:[address] 12/06/24 10:46 IMPRESSION: Continued evolution of a right frontoparietal subdural hematoma measuring up to 6 mm in thickness with mild mass effect. No intracranial hemorrhage or other acute intracranial abnormality. Electronically signed by: Miguel Ness MD 12/06/2024 11:23 AM EDT RP Elbow X-Ray 12/07/24 09:11 IMPRESSION: No evidence of fracture of the right elbow. Electronically signed by: Blayne Avila MD 12/07/2024 09:43 AM EDT RP Elbow X-Ray 12/07/24 09:13 IMPRESSION: No evidence of fracture of the left elbow. Electronically signed by: Blayne Avila MD 12/07/2024 09:44 AM EDT Humerus X-Ray 12/07/24 14:02 IMPRESSION: No acute fracture, left humerus. No change Electronically signed by: Raghav Porras MD 12/07/2024 02:14 PM EDT RP Medications Medications Current Medications Acetaminophen (Acetaminophen 325 Mg Tablet) 650 mg PO Q6H PRN PRN Reason: Headache/Pain, Scale 1-10 Last Admin: 12/11/24 20:19 Dose: 650 mg Al Hydroxide/Mg Hydroxide (Magnesium Hydrox/Alum Hydrox 30 Ml Oral.Susp) 30 ml PO Q6H PRN PRN Reason: Heartburn/Nausea Bisacodyl (Bisacodyl 10 Mg Supp.Rect) 10 mg [place] DAILY PRN PRN Reason: Constipation Last Admin: 12/08/24 16:44 Dose: 10 mg Diazepam (Diazepam 2 Mg Tablet) 2 mg PO TID ENDY Last Admin: 12/27/24 21:48 Dose: 2 mg Diazepam (Diazepam 10 Mg/2 Ml Cartridge) 5 mg IM TID PRN PRN Reason: if refuses Po,hold ifsedation Last Admin: 12/25/24 22:06 Dose: 5 mg Finasteride (Finasteride 5 Mg Tablet) 5 mg PO DAILY [facility] Last Admin: 12/27/24 09:30 Dose: Not Given Fludrocortisone Acetate (Fludrocortisone Acetate 0.1 Mg Tablet) 0.2 mg PO DAILY [facility] Last Admin: 12/27/24 09:30 Dose: Not Given Hydrocortisone (Hydrocortisone 1 % Ointment 28.35 Gm Tube) 1 appl TOPICAL BID [facility]; Protocol Last Admin: 12/27/24 21:50 Dose: Not Given Magnesium Hydroxide (Milk Of Magnesia 30 Ml Oral.Susp) 30 ml PO DAILY PRN PRN Reason: Constipation Midodrine (Midodrine Hcl 10 Mg Tablet) 10 mg PO TIDWM [facility] Last Admin: 12/27/24 16:56 Dose: Not Given Olanzapine (Olanzapine 5 Mg Tablet) 5 mg PO Q6H PRN PRN Reason: agitation Olanzapine (Olanzapine 2.5 Mg Tablet) 2.5 mg PO TID ENDY Last Admin: 12/27/24 21:50 Dose: 2.5 mg Olanzapine (Olanzapine 10 Mg Vial) 2.5 mg IM BID PRN PRN Reason: if refuses oral olanzapine Last Admin: 12/26/24 12:30 Dose: 2.5 mg Senna (Sennosides 8.6 Mg Tablet) 8.6 mg PO Q12H PRN PRN Reason: Constipation Sodium Biphosphate/Sodium Phosphate (Sodium Phosphate,[place]-Dibasic 133 Ml Enema) 118 ml ND DAILY PRN PRN Reason: Constipation Tamsulosin HCl (Tamsulosin Hcl 0.4 Mg Capsule) 0.4 mg PO DAILY ENDY Last Admin: 12/27/24 09:30 Dose: Not Given Trazodone HCl (Trazodone Hcl 50 Mg Tablet) 50 mg PO BEDTIME PRN PRN Reason: Insomnia Last Admin: 12/26/24 01:31 Dose: 50 mg Trazodone HCl (Trazodone Hcl 100 Mg Tablet) 100 mg PO BEDTIME ENDY Last Admin: 12/27/24 21:47 Dose: 100 mg Allergies Allergies Allergy/AdvReac Type Severity Reaction Status Date / Time No Known Allergies Allergy Verified 11/30/24 02:25 Assessment & Plan Assessment & Plan (1) Major neurocognitive disorder due to multiple etiologies, with psychotic disturbance: Status: Acute Code(s): F02.82 - Dementia in other diseases classified elsewhere, unspecified severity, with psychotic disturbance (2) BPH (benign prostatic hyperplasia): Status: Acute Code(s): N40.0 - Benign prostatic hyperplasia without lower urinary tract symptoms (3) Lewy body dementia with psychotic disturbance: Status: Acute Code(s): G31.83 - Neurocognitive disorder with Lewy bodies; F02.82 - Dementia in other diseases classified elsewhere, unspecified severity, with psychotic disturbance Plan Mr. Quintero is a 79 year-old male with hx of Dementia, it does appear to be of Lewy Body with periods of visual hallucinations, autonomic dysfunction, some degree of fluctuation in terms of orientation. HCP has been invoked, he is CV by HCP. Will continue seroquel for now and assess efficacy. PLAN 12/05 d/c seroquel, continue only risperidone. continue to monitor hotn, on midodrine. 12/06 hit head, ordered head CT no new intracraneal bleed. subdural hematoma noted again. continue bladder scans q6h straigh cath if pvr>500cc 12/07 continue tx. added low dose clonazepam 0.125mg po TID. 12/08 continue tx. 12/09 add low dose depakote 125mg PO BID. Note pt has very low albumin level (check free VPA, instead or total). continue risperidone, no EPS noted. Continue low dose of clonazepam. 12/10: no change today 12/11: aggressive, refusing meds - no treatment plan change yet 12/12 increase depakote to 250mg po BID, continue all other medications. 12/13 change clonazepam for valium 5mg po TID, back IM per HCP. change risperidone for low dose prolixin so he can receive back IM if not taking po per HCP. 12/14 continue tx. appears calmer today. 12/15 continue tx. 12/16 continue tx. 12/17 remains intermittently combative and today hit [facility] [place]. Refusing all meds. -Has been having very little fluid intake over past 2 days so will get labs -Patient's nurse, Etelvina Gleason reviewed microbiology and editorial writer agrees that current antibiotic should likely be changed given sensitivities; hospitalist consult placed PLAN: -DC Ceftin (not indicated) -START Ampicillin 500mg q6h for 10 days (Ampicillin is sensitive and comes in IM) 12/18 same presentation Bun/Cr grossly WNL Continue Ampicillin 500mg q6h for 10 days (Ampicillin is sensitive and comes in IM) 12/19 continues to present as irritable, significant decrease in oral intake in past 2 days. refusing other medications. pending CMP/CBC. Hospitalist following. Left VM for , HCP, Yesica with call back number. 12/20 continues to present with intermittent agitation and refusing care at times, irritable and combative with direct care. 12/21 will change prolixin to olanzapine 2.5mg po TID, back IM limited to BID, not TID to avoid several IM in one day and also bioavailability of olanzapine higher when given IM. 12/22 continue tx. family meeting to discuss goals of care including CALCINER OPERATOR. 12/23 continue tx. hold giving IM if pt sedated/somnolent. 7 when missing doses of meds pt gets agitated- so given IMs today at med times- 12/25/24 CTP 12/26 will simply regimen as he is not taking much medications po. d/c depakote, atorvastatin (now CALCINER OPERATOR), remeron. will add schedule trazodone for sleep. continue olanzapine and back up IM. HOLD IM if pt sleeping or oversedated. 12/27 increase trazodone at bedtime 100mg po qhs. continue to simply regimen including d/c omeprazole. 12/28 contineu tx. Reason for continued inpatient stay Substantial Risk for: inability to function Time Spent With Patient Time: Total time managing care of this patient today ____ minutes.
[2024-12-28 09:10] VITALS: BP 99/61; PULSE 18; RESP 18; TEMP 36.6
[2024-12-28 12:27] VITALS: BP 106/62; PULSE 88
[2024-12-28 17:06] VITALS: BP 88/54; PULSE 76
[2024-12-28 20:00] VITALS: BP 97/55; PULSE 89; RESP 18; TEMP 36.4; O2SAT 94
[2024-12-28] MEDS: diazePAM 10 MG/2 ML CARTRIDGE 5 MG IM (23:51)
[2024-12-29] MEDS: OLANZapine 10 MG VIAL 2.5 MG IM ×3 (00:03→21:02)
[2024-12-29 08:00] VITALS: BP 81/49; PULSE 81; RESP 14; TEMP 36.7; O2SAT 96
[2024-12-29 09:24] VITALS: BP 81/49
[2024-12-29] MEDS: Hydrocortisone 1 % Ointment 28.35 GM TUBE 1 APPL TOPICAL (09:25)
[2024-12-29 10:07] VITALS: BMI 21.5
[2024-12-29] MEDS: diazePAM 10 MG/2 ML CARTRIDGE 5 MG IM ×2 (14:52→21:03)
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
[2024-12-29 20:00] VITALS: BP 97/51; PULSE 84; RESP 16; TEMP 36.3; O2SAT 98
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
[2024-12-30 01:54] VITALS: BP 118/76; PULSE 105; RESP 18; TEMP 36.6; O2SAT 99
[2024-12-30 08:00] VITALS: BP 106/56; PULSE 97; RESP 16; TEMP 36.7; O2SAT 94
[2024-12-30 12:15] VITALS: BP 104/56
--- NOTE | 2024-12-30 13:43 | PC.NURSE ---
Pt incontinent of large amount of urine to brief, able to change brief and pants with some pushback from pt. Pt angrily declining to wear his yellow socks at this time. 1:1 continues for safety.
--- NOTE | 2024-12-30 15:14 | P.PNIM_ITS ---
Subjective Subjective Date of Service: 12/30/24 Interval History: Patient is seen status post fall, last night at 23:40 ENGINEERING ANALYST was called due to patient falling from his wheelchair and hitting his head. No LOC. Cervical spine CT without evidence of fracture or dislocation, demonstrates multilevel degenerative changes soft tissues of the neck are normal. Head CT was performed with no acute intracranial findings and it demonstrated unchanged right frontoparietal known subdural hematoma. On exam patient is resting in bed, denies any pain or discomfort. No obvious injuries noted. Moves all joints without any pain, no pain with palpation to any joints. No facial grimacing. Review of Systems Limited due to patient's cognition, he denies any pain Physical Exam 2 Exam: Exam: CONST: Alert and confused, in NAD. Thin. Sleeping easily arousable HEENT: Normocephalic, atraumatic, dry mucous membranes RESP: Lungs clear, RRR even and regular HEART:,RRR, S1, S2. No edema GI:Abdomen Soft NT, ND. + BS times four :Deferred SKIN: Warm dry and intact, skin tears to bilateral arms, scattered bruising NEURO: Moves all extremities without evidence of pain or injury PSYCH: Sleepy Vital Signs: Vital Signs: Last Vital Signs Temp 98.1 F 12/30/24 08:00 Pulse 97 12/30/24 08:00 Resp 16 12/30/24 08:00 BP 104/56 L 12/30/24 12:15 Pulse Ox 94 12/30/24 08:00 O2 Del Method Room Air 12/30/24 08:00 BMI result Body Mass Index 21.5 Objective Data Active Medications Acetaminophen (Acetaminophen 325 Mg Tablet) 650 mg PO Q6H PRN PRN Reason: Headache/Pain, Scale 1-10 Last Admin: 12/11/24 20:19 Dose: 650 mg Documented By: REBECA Al Hydroxide/Mg Hydroxide (Magnesium Hydrox/Alum Hydrox 30 Ml Oral.Susp) 30 ml PO Q6H PRN PRN Reason: Heartburn/Nausea Bisacodyl (Bisacodyl 10 Mg Supp.Rect) 10 mg LA DAILY PRN PRN Reason: Constipation Last Admin: 12/08/24 16:44 Dose: 10 mg Documented By: FREDDY Diazepam (Diazepam 2 Mg Tablet) 2 mg PO TID [facility] Last Admin: 12/30/24 14:39 Dose: Not Given Documented By: EVIE Non-Admin Reason: Patient Refused Diazepam (Diazepam 10 Mg/2 Ml Cartridge) 5 mg IM TID PRN PRN Reason: if refuses Po,hold ifsedation Last Admin: 12/29/24 21:03 Dose: 5 mg Documented By: DEANDRA Finasteride (Finasteride 5 Mg Tablet) 5 mg PO DAILY [facility] Last Admin: 12/30/24 08:50 Dose: Not Given Documented By: EVIE Non-Admin Reason: Patient Refused Fludrocortisone Acetate (Fludrocortisone Acetate 0.1 Mg Tablet) 0.2 mg PO DAILY [facility] Last Admin: 12/30/24 08:50 Dose: Not Given Documented By: EVIE Non-Admin Reason: Patient Refused Hydrocortisone (Hydrocortisone 1 % Ointment 28.35 Gm Tube) 1 appl TOPICAL BID [facility]; Protocol Last Admin: 12/30/24 08:50 Dose: Not Given Documented By: EVIE Non-Admin Reason: Patient Refused Magnesium Hydroxide (Milk Of Magnesia 30 Ml Oral.Susp) 30 ml PO DAILY PRN PRN Reason: Constipation Midodrine (Midodrine Hcl 10 Mg Tablet) 10 mg PO TIDWM [facility] Last Admin: 12/30/24 12:16 Dose: Not Given Documented By: EVIE Non-Admin Reason: Patient Refused Morphine Sulfate (Morphine Sulfate Oral Reina 10 Mg/5 Ml Solution) 2.5 mg PO Q4H PRN PRN Reason: Pain, Moderate(Pain Scale 4-6) Olanzapine (Olanzapine 5 Mg Tablet) 5 mg PO Q6H PRN PRN Reason: agitation Last Admin: 12/30/24 00:09 Dose: 5 mg Documented By: DEANDRA Olanzapine (Olanzapine 2.5 Mg Tablet) 2.5 mg PO TID [facility] Last Admin: 12/30/24 14:39 Dose: Not Given Documented By: EVIE Non-Admin Reason: Patient Refused Olanzapine (Olanzapine 10 Mg Vial) 5 mg IM BID PRN PRN Reason: if refuses oral olanzapine Senna (Sennosides 8.6 Mg Tablet) 8.6 mg PO Q12H PRN PRN Reason: Constipation Sodium Biphosphate/Sodium Phosphate (Sodium Phosphate,[place]-Dibasic 133 Ml Enema) 118 ml [place] DAILY PRN PRN Reason: Constipation Tamsulosin HCl (Tamsulosin Hcl 0.4 Mg Capsule) 0.4 mg PO DAILY [facility] Last Admin: 12/30/24 08:51 Dose: Not Given Documented By: EVIE Non-Admin Reason: Patient Refused Trazodone HCl (Trazodone Hcl 50 Mg Tablet) 50 mg PO BEDTIME PRN PRN Reason: Insomnia Last Admin: 12/30/24 00:09 Dose: 50 mg Documented By: DEANDRA Trazodone HCl (Trazodone Hcl 100 Mg Tablet) 100 mg PO BEDTIME [facility] Last Admin: 12/29/24 21:27 Dose: Not Given Documented By: DEANDRA Non-Admin Reason: Patient Refused Labs 12/21/24 15:02 12/21/24 15:02 Assessment and Plan (1) Fall: Status: Acute (2) Hypotension: Status: Acute Plan 79 year old male with vascular dementia, BPH, hypotension, acute on chronic subdural hematoma, GERD admitted to [facility] for further treatment of Dementia with behavioral disturbances. Vascular dementia/Aggression. Treatment per psych team. Patient intermittently accepts oral medications and food and fluids. Reviewed most with family, family does not wish to have any further workups including labs, imaging, testing. They do not desire feeding tube, intravenous fluids, dialysis, resuscitative measures. Family wishes comfort measures only, low-dose morphine added for comfort. MOLST updated. He continues on Valium SW working with family for appropriate DC planning Fall without injury CT head and cervical spine without any injuries On exam no obvious injury, patient has full range of motion with no evidence of pain or discomfort BPH/Urinary retention Patient has been voiding at times, still requiring intermittent catheterizing Continue Finesteride and Flomax, patient has been refusing Will need outpatient urology follow up. Bladder scan Q 6 hours and SC greater than 350 ccs Would not recommend any further urine cultures unless there are clear signs and symptoms that localized to the urinary tract Avoid treating asymptomatic bacteriuria Acute on Chronic subdural hematoma CT scans of the head consistent with old subdural hematoma. Recent CT demonstrates no change status post fall Hypotension Continue Midodrine TID, and Florinef 0.2 mgs daily Anurag stockings Despite midodrine, BP's consistently low. Refused ECHO, Random cortisol level within normal limits Nephrology following GERD Continue PPI- Has been refusing Thank you for allowing me to participate in the care of this patient. Will follow as needed, please notify medical provider if any acute concerns or issues arise. Quality Stroke Does the patient have a stroke diagnosis?: No VTE Prior VTE?: No VTE Risk Level:: Medical - low VTE Device Contraindication: Treatment Not Indicated VTE Drug Contraindication: Treatment Not Indicated
[2024-12-30] MEDS: OLANZapine 10 MG VIAL 5 MG IM (15:20)
[2024-12-30] MEDS: diazePAM 10 MG/2 ML CARTRIDGE 5 MG IM (15:21)
--- NOTE | 2024-12-30 16:00 | HO.PSYCHPN ---
Subjective Subjective Date of Service: 12/30/24 Reason For Visit: agitation Subjective Notes: Conditional Voluntary Healthcare Proxy: Yes Interim History: pt with difficulty sleeping, very restless at night. He was awake at times in the morning, then back to bed. continues to decline medications- these are mostly for agitation, although he does receive back IM. But also medication to help with urinary retention. Review of Systems Review of Systems Limited due to patient's cognition, he denies any pain Yes all other systems are reviewed and are negative, Unobtainable due to mental condition and Unobtainable due to mental status Mental Status Exam Mental Status Exam Narrative: lying in bed apparently sleeping, does not respond to provider calling his name breathing comfortably Diagnostics Vital Signs (24Hr): Vital Signs - 24 hr 12/29/24 20:00 12/30/24 01:54 12/30/24 08:00 Temperature 97.3 F 98 F 98.1 F Pulse Rate 84 105 H 97 Respiratory Rate 16 18 16 Blood Pressure 97/51 L 118/76 106/56 L Pulse Oximetry 98 99 94 Oxygen Delivery Method Room Air Room Air 12/30/24 12:15 Temperature Pulse Rate Respiratory Rate Blood Pressure 104/56 L Pulse Oximetry Oxygen Delivery Method BMI result Body Mass Index 21.5 Labs 12/21/24 15:02 12/21/24 15:02 Imaging Radiology Impressions: ITS Impressions Clavicle X-Ray 11/30/24 08:08 IMPRESSION: Inferiorly displaced fracture distal right clavicle, probable old. Degenerative changes, right shoulder. Consider calcific tendinosis/tendinopathy, supraspinatus. Electronically signed by: Raghav Porras MD 11/30/2024 09:28 AM EDT RP Head CT 12/06/24 10:46 IMPRESSION: Continued evolution of a right frontoparietal subdural hematoma measuring up to 6 mm in thickness with mild mass effect. No intracranial hemorrhage or other acute intracranial abnormality. Electronically signed by: Miguel Ness MD 12/06/2024 11:23 AM EDT RP Elbow X-Ray 12/07/24 09:11 IMPRESSION: No evidence of fracture of the right elbow. Electronically signed by: Blayne Avila MD 12/07/2024 09:43 AM EDT RP Elbow X-Ray 12/07/24 09:13 IMPRESSION: No evidence of fracture of the left elbow. Electronically signed by: Blayne Avila MD 12/07/2024 09:44 AM EDT RP Humerus X-Ray 12/07/24 14:02 IMPRESSION: No acute fracture, left humerus. No change Electronically signed by: Raghav Porras MD 12/07/2024 02:14 PM EDT RP Medications Medications Current Medications Acetaminophen (Acetaminophen 325 Mg Tablet) 650 mg PO Q6H PRN PRN Reason: Headache/Pain, Scale 1-10 Last Admin: 12/11/24 20:19 Dose: 650 mg Al Hydroxide/Mg Hydroxide (Magnesium Hydrox/Alum Hydrox 30 Ml Oral.Susp) 30 ml PO Q6H PRN PRN Reason: Heartburn/Nausea Bisacodyl (Bisacodyl 10 Mg Supp.Rect) 10 mg [place] DAILY PRN PRN Reason: Constipation Last Admin: 12/08/24 16:44 Dose: 10 mg Diazepam (Diazepam 2 Mg Tablet) 2 mg PO TID [facility] Last Admin: 12/30/24 14:39 Dose: Not Given Diazepam (Diazepam 10 Mg/2 Ml Cartridge) 5 mg IM TID PRN PRN Reason: if refuses Po,hold ifsedation Last Admin: 12/30/24 15:21 Dose: 5 mg Finasteride (Finasteride 5 Mg Tablet) 5 mg PO DAILY [facility] Last Admin: 12/30/24 08:50 Dose: Not Given Fludrocortisone Acetate (Fludrocortisone Acetate 0.1 Mg Tablet) 0.2 mg PO DAILY [facility] Last Admin: 12/30/24 08:50 Dose: Not Given Hydrocortisone (Hydrocortisone 1 % Ointment 28.35 Gm Tube) 1 appl TOPICAL BID [facility]; Protocol Last Admin: 12/30/24 08:50 Dose: Not Given Magnesium Hydroxide (Milk Of Magnesia 30 Ml Oral.Susp) 30 ml PO DAILY PRN PRN Reason: Constipation Midodrine (Midodrine Hcl 10 Mg Tablet) 10 mg PO TIDWM [facility] Last Admin: 12/30/24 12:16 Dose: Not Given Morphine Sulfate (Morphine Sulfate Oral Reina 10 Mg/5 Ml Solution) 2.5 mg PO Q4H PRN PRN Reason: Pain, Moderate(Pain Scale 4-6) Olanzapine (Olanzapine 5 Mg Tablet) 5 mg PO Q6H PRN PRN Reason: agitation Last Admin: 12/30/24 00:09 Dose: 5 mg Olanzapine (Olanzapine 2.5 Mg Tablet) 2.5 mg PO TID [facility] Last Admin: 12/30/24 14:39 Dose: Not Given Olanzapine (Olanzapine 10 Mg Vial) 5 mg IM BID PRN PRN Reason: if refuses oral olanzapine Last Admin: 12/30/24 15:20 Dose: 5 mg Senna (Sennosides 8.6 Mg Tablet) 8.6 mg PO Q12H PRN PRN Reason: Constipation Sodium Biphosphate/Sodium Phosphate (Sodium Phosphate,[place]-Dibasic 133 Ml Enema) 118 ml [place] DAILY PRN PRN Reason: Constipation Tamsulosin HCl (Tamsulosin Hcl 0.4 Mg Capsule) 0.4 mg PO DAILY [facility] Last Admin: 12/30/24 08:51 Dose: Not Given Trazodone HCl (Trazodone Hcl 50 Mg Tablet) 50 mg PO BEDTIME PRN PRN Reason: Insomnia Last Admin: 12/30/24 00:09 Dose: 50 mg Trazodone HCl (Trazodone Hcl 100 Mg Tablet) 100 mg PO BEDTIME [facility] Last Admin: 12/29/24 21:27 Dose: Not Given Allergies Allergies Allergy/AdvReac Type Severity Reaction Status Date / Time No Known Allergies Allergy Verified 11/30/24 02:25 Assessment & Plan Assessment & Plan (1) Major neurocognitive disorder due to multiple etiologies, with psychotic disturbance: Status: Acute Code(s): F02.82 - Dementia in other diseases classified elsewhere, unspecified severity, with psychotic disturbance (2) Fall: Status: Acute Code(s): W19.XXXA - Unspecified fall, initial encounter (3) Hypotension: Status: Acute Code(s): I95.9 - Hypotension, unspecified Plan Mr. Quintero is a 79 year-old male with hx of neurocognitive disorder. 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 12/30 continues to present as agitated, not taking medications, one to one due to fall risk. Reason for continued inpatient stay Substantial Risk for: inability to function Time Spent With Patient Time: Total time managing care of this patient today ____ minutes.
--- NOTE | 2024-12-31 07:21 | HO.PSYCHPN ---
Subjective Subjective Date of Service: 12/31/24 Reason For Visit: agitation Subjective Notes: Conditional Voluntary Healthcare Proxy: Yes Interim History: met with patient. Discussed with Nursing. One-to-one observation for fall risk. Is allowing vitals and accepting medications. Sleep has been very poor. Confused. Can get physically aggressive when awake . Medication Compliance: Yes Side effects from medications: No Attending Groups: No Review of Systems Acute medical concerns: No Review of Systems Review of Systems Limited due to patient's cognition Mental Status Exam Mental Status Exam Narrative: lying in bed apparently sleeping, does not respond to provider calling his name, As per staff consider when awake easily agitated. Patient Appearance: Unkempt Patient Orientation: Person Level of Consciousness: Awake Patient Behavior: Dependent, Combative (during adls- suggested may be give prn prior to attempt at adls - ) and Poor Eye Contact Mood Description: Calm Affect Description: Constricted Patient Cognition Impaired: Yes Ability to Follow Directions: Poor Speech Pattern: Garbled and Poor Articulation Diagnostics Vital Signs (24Hr): Vital Signs - 24 hr 12/30/24 08:00 12/30/24 12:15 Temperature 98.1 F Pulse Rate 97 Respiratory Rate 16 Blood Pressure 106/56 L 104/56 L Pulse Oximetry 94 Oxygen Delivery Method Room Air BMI result Body Mass Index 21.5 Labs 12/21/24 15:02 12/21/24 15:02 Imaging Radiology Impressions: ITS Impressions Clavicle X-Ray 11/30/24 08:08 IMPRESSION: Inferiorly displaced fracture distal right clavicle, probable old. Degenerative changes, right shoulder. Consider calcific tendinosis/tendinopathy, supraspinatus. Electronically signed by: Raghav Porras MD 11/30/2024 09:28 AM EDT RP Head CT 12/06/24 10:46 IMPRESSION: Continued evolution of a right frontoparietal subdural hematoma measuring up to 6 mm in thickness with mild mass effect. No intracranial hemorrhage or other acute intracranial abnormality. Electronically signed by: Miguel Ness MD 12/06/2024 11:23 AM EDT RP Elbow X-Ray 12/07/24 09:11 IMPRESSION: No evidence of fracture of the right elbow. Electronically signed by: Blayne Avila MD 12/07/2024 09:43 AM EDT RP Elbow X-Ray 12/07/24 09:13 IMPRESSION: No evidence of fracture of the left elbow. Electronically signed by: Blayne Avila MD 12/07/2024 09:44 AM EDT RP Humerus X-Ray 12/07/24 14:02 IMPRESSION: No acute fracture, left humerus. No change Electronically signed by: Raghav Porras MD 12/07/2024 02:14 PM EDT RP Medications Medications Current Medications Acetaminophen (Acetaminophen 325 Mg Tablet) 650 mg PO Q6H PRN PRN Reason: Headache/Pain, Scale 1-10 Last Admin: 12/11/24 20:19 Dose: 650 mg Al Hydroxide/Mg Hydroxide (Magnesium Hydrox/Alum Hydrox 30 Ml Oral.Susp) 30 ml PO Q6H PRN PRN Reason: Heartburn/Nausea Bisacodyl (Bisacodyl 10 Mg Supp.Rect) 10 mg LA DAILY PRN PRN Reason: Constipation Last Admin: 12/08/24 16:44 Dose: 10 mg Diazepam (Diazepam 2 Mg Tablet) 2 mg PO TID [facility] Last Admin: 12/30/24 21:27 Dose: 2 mg Diazepam (Diazepam 10 Mg/2 Ml Cartridge) 5 mg IM TID PRN PRN Reason: if refuses Po,hold ifsedation Last Admin: 12/30/24 15:21 Dose: 5 mg Finasteride (Finasteride 5 Mg Tablet) 5 mg PO DAILY [facility] Last Admin: 12/30/24 08:50 Dose: Not Given Fludrocortisone Acetate (Fludrocortisone Acetate 0.1 Mg Tablet) 0.2 mg PO DAILY [facility] Last Admin: 12/30/24 08:50 Dose: Not Given Hydrocortisone (Hydrocortisone 1 % Ointment 28.35 Gm Tube) 1 appl TOPICAL BID [facility]; Protocol Last Admin: 12/30/24 21:28 Dose: Not Given Magnesium Hydroxide (Milk Of Magnesia 30 Ml Oral.Susp) 30 ml PO DAILY PRN PRN Reason: Constipation Midodrine (Midodrine Hcl 10 Mg Tablet) 10 mg PO TIDWM [facility] Last Admin: 12/30/24 18:30 Dose: Not Given Morphine Sulfate (Morphine Sulfate Oral Reina 10 Mg/5 Ml Solution) 2.5 mg PO Q4H PRN PRN Reason: Pain, Moderate(Pain Scale 4-6) Olanzapine (Olanzapine 5 Mg Tablet) 5 mg PO Q6H PRN PRN Reason: agitation Last Admin: 12/30/24 23:38 Dose: 5 mg Olanzapine (Olanzapine 2.5 Mg Tablet) 2.5 mg PO TID [facility] Last Admin: 12/30/24 21:27 Dose: 2.5 mg Olanzapine (Olanzapine 10 Mg Vial) 5 mg IM BID PRN PRN Reason: if refuses oral olanzapine Last Admin: 12/30/24 15:20 Dose: 5 mg Senna (Sennosides 8.6 Mg Tablet) 8.6 mg PO Q12H PRN PRN Reason: Constipation Sodium Biphosphate/Sodium Phosphate (Sodium Phosphate,[place]-Dibasic 133 Ml Enema) 118 ml LA DAILY PRN PRN Reason: Constipation Tamsulosin HCl (Tamsulosin Hcl 0.4 Mg Capsule) 0.4 mg PO DAILY [facility] Last Admin: 12/30/24 08:51 Dose: Not Given Trazodone HCl (Trazodone Hcl 50 Mg Tablet) 50 mg PO BEDTIME PRN PRN Reason: Insomnia Last Admin: 12/30/24 23:38 Dose: 50 mg Trazodone HCl (Trazodone Hcl 100 Mg Tablet) 100 mg PO BEDTIME [facility] Last Admin: 12/30/24 21:27 Dose: 100 mg Allergies Allergies Allergy/AdvReac Type Severity Reaction Status Date / Time No Known Allergies Allergy Verified 11/30/24 02:25 Assessment & Plan Assessment & Plan (1) Fall: Status: Acute Code(s): W19.XXXA - Unspecified fall, initial encounter (2) Hypotension: Status: Acute Code(s): I95.9 - Hypotension, unspecified Plan Mr. Quintero is a 79 year-old male with hx of Dementia, it does appear to be of Lewy Body with periods of visual hallucinations, autonomic dysfunction, some degree of fluctuation in terms of orientation. HCP has been invoked, he is CV by HCP. Will continue seroquel for now and assess efficacy. PLAN 12/05 d/c seroquel, continue only risperidone. continue to monitor hotn, on midodrine. 12/06 hit head, ordered head CT no new intracraneal bleed. subdural hematoma noted again. continue bladder scans q6h straigh cath if pvr>500cc 12/07 continue tx. added low dose clonazepam 0.125mg po TID. 12/08 continue tx. 12/09 add low dose depakote 125mg PO BID. Note pt has very low albumin level (check free VPA, instead or total). continue risperidone, no EPS noted. Continue low dose of clonazepam. 12/10: no change today 12/11: aggressive, refusing meds - no treatment plan change yet 12/12 increase depakote to 250mg po BID, continue all other medications. 12/13 change clonazepam for valium 5mg po TID, back IM per HCP. change risperidone for low dose prolixin so he can receive back IM if not taking po per HCP. 12/14 continue tx. appears calmer today. 12/15 continue tx. 12/16 continue tx. 12/17 remains intermittently combative and today hit [facility]. Refusing all meds. -Has been having very little fluid intake over past 2 days so will get labs -Patient's nurse, Etelvina Gleason reviewed microbiology and mortgage or loan underwriter agrees that current antibiotic should likely be changed given sensitivities; hospitalist consult placed PLAN: -DC Ceftin (not indicated) -START Ampicillin 500mg q6h for 10 days (Ampicillin is sensitive and comes in IM) 12/18 same presentation Bun/Cr grossly WNL Continue Ampicillin 500mg q6h for 10 days (Ampicillin is sensitive and comes in IM) 12/19 continues to present as irritable, significant decrease in oral intake in past 2 days. refusing other medications. pending CMP/CBC. Hospitalist following. Left for , HCP, Yesica with call back number. 12/20 continues to present with intermittent agitation and refusing care at times, irritable and combative with direct care. 12/21 will change prolixin to olanzapine 2.5mg po TID, back IM limited to BID, not TID to avoid several IM in one day and also bioavailability of olanzapine higher when given IM. 12/22 continue tx. family meeting to discuss goals of care including HEAD OPERATOR. 12/23 continue tx. hold giving IM if pt sedated/somnolent. 7 when missing doses of meds pt gets agitated- so given IMs today at med times- 12/25/24 CTP 12/26 will simply regimen as he is not taking much medications po. d/c depakote, atorvastatin (now HEAD OPERATOR), remeron. will add schedule trazodone for sleep. continue olanzapine and back up IM. HOLD IM if pt sleeping or oversedated. 12/27 increase trazodone at bedtime 100mg po qhs. continue to simply regimen including d/c omeprazole. 12/28 continue tx. 12/29 continue tx. 01/01/2024: No changes Reason for continued inpatient stay Substantial Risk for: inability to function Time Spent With Patient Time: Total time managing care of this patient today ____ minutes.
[2024-12-31 08:00] VITALS: BP 82/54; PULSE 85; RESP 18; TEMP 36.1; O2SAT 95
[2024-12-31 20:00] VITALS: BP 97/58; PULSE 76; RESP 16; TEMP 36.7; O2SAT 97
[2025-01-01] MEDS: Morphine Sulfate Oral Sol 10 MG/5 ML SOLUTION 2.5 MG PO (08:00)
--- NOTE | 2025-01-01 11:08 | P.PNPSI_ITS ---
Subjective Subjective Date of Service: 01/01/25 Reason For Visit: agitation Interim History: ESCORT SERVICE ATTENDANT noted. Discussed with Nursing. One-to-one observation for fall risk. Sleep broken. Confused and agitated when awake. Medication Compliance: Intermittent Side effects from medications: No Attending Groups: No Review of Systems Review of Systems Limited due to patient's cognition. ESCORT SERVICE ATTENDANT Mental Status Exam Mental Status Exam Narrative: lying in bed apparently sleeping, does not respond to provider calling his name, As per staff consider when awake easily agitated. Diagnostics Vital Signs (24Hr): Vital Signs - 24 hr 12/31/24 20:00 Temperature 98.1 F Pulse Rate 76 Respiratory Rate 16 Blood Pressure 97/58 L Pulse Oximetry 97 Oxygen Delivery Method Room Air BMI result Body Mass Index 21.5 Labs 12/21/24 15:02 12/21/24 15:02 Imaging Radiology Impressions: ITS Impressions Clavicle X-Ray 11/30/24 08:08 IMPRESSION: Inferiorly displaced fracture distal right clavicle, probable old. Degenerative changes, right shoulder. Consider calcific tendinosis/tendinopathy, supraspinatus. Electronically signed by: Raghav Porras MD 11/30/2024 09:28 AM EDT RP Head CT 12/06/24 10:46 IMPRESSION: Continued evolution of a right frontoparietal subdural hematoma measuring up to 6 mm in thickness with mild mass effect. No intracranial hemorrhage or other acute intracranial abnormality. Electronically signed by: Miguel Ness MD 12/06/2024 11:23 AM EDT RP Elbow X-Ray 12/07/24 09:11 IMPRESSION: No evidence of fracture of the right elbow. Electronically signed by: Blayne Avila MD 12/07/2024 09:43 AM EDT RP Elbow X-Ray 12/07/24 09:13 IMPRESSION: No evidence of fracture of the left elbow. Electronically signed by: Blayne Avila MD 12/07/2024 09:44 AM EDT RP Humerus X-Ray 12/07/24 14:02 IMPRESSION: No acute fracture, left humerus. No change Electronically signed by: Raghav Porras MD 12/07/2024 02:14 PM EDT RP Medications Medications Current Medications Acetaminophen (Acetaminophen 325 Mg Tablet) 650 mg PO Q6H PRN PRN Reason: Headache/Pain, Scale 1-10 Last Admin: 12/11/24 20:19 Dose: 650 mg Al Hydroxide/Mg Hydroxide (Magnesium Hydrox/Alum Hydrox 30 Ml Oral.Susp) 30 ml PO Q6H PRN PRN Reason: Heartburn/Nausea Bisacodyl (Bisacodyl 10 Mg Supp.Rect) 10 mg [place] DAILY PRN PRN Reason: Constipation Last Admin: 12/08/24 16:44 Dose: 10 mg Diazepam (Diazepam 2 Mg Tablet) 2 mg PO TID [facility] Last Admin: 01/01/25 08:00 Dose: 2 mg Diazepam (Diazepam 10 Mg/2 Ml Cartridge) 5 mg IM TID PRN PRN Reason: if refuses Po,hold ifsedation Last Admin: 12/30/24 15:21 Dose: 5 mg Finasteride (Finasteride 5 Mg Tablet) 5 mg PO DAILY [facility] Last Admin: 01/01/25 08:00 Dose: 5 mg Fludrocortisone Acetate (Fludrocortisone Acetate 0.1 Mg Tablet) 0.2 mg PO DAILY [facility] Last Admin: 01/01/25 08:01 Dose: 0.2 mg Hydrocortisone (Hydrocortisone 1 % Ointment 28.35 Gm Tube) 1 appl TOPICAL BID [facility]; Protocol Last Admin: 01/01/25 09:22 Dose: Not Given Magnesium Hydroxide (Milk Of Magnesia 30 Ml Oral.Susp) 30 ml PO DAILY PRN PRN Reason: Constipation Midodrine (Midodrine Hcl 10 Mg Tablet) 10 mg PO TIDWM [facility] Last Admin: 01/01/25 08:01 Dose: 10 mg Morphine Sulfate (Morphine Sulfate Oral Reina 10 Mg/5 Ml Solution) 2.5 mg PO Q4H PRN PRN Reason: Pain, Moderate(Pain Scale 4-6) Last Admin: 01/01/25 08:00 Dose: 2.5 mg Olanzapine (Olanzapine 5 Mg Tablet) 5 mg PO Q6H PRN PRN Reason: agitation Last Admin: 12/30/24 23:38 Dose: 5 mg Olanzapine (Olanzapine 2.5 Mg Tablet) 2.5 mg PO TID [facility] Last Admin: 01/01/25 08:00 Dose: 2.5 mg Olanzapine (Olanzapine 10 Mg Vial) 5 mg IM BID PRN PRN Reason: if refuses oral olanzapine Last Admin: 12/30/24 15:20 Dose: 5 mg Senna (Sennosides 8.6 Mg Tablet) 8.6 mg PO Q12H PRN PRN Reason: Constipation Sodium Biphosphate/Sodium Phosphate (Sodium Phosphate,[place]-Dibasic 133 Ml Enema) 118 ml [place] DAILY PRN PRN Reason: Constipation Tamsulosin HCl (Tamsulosin Hcl 0.4 Mg Capsule) 0.4 mg PO DAILY [facility] Last Admin: 01/01/25 08:01 Dose: 0.4 mg Trazodone HCl (Trazodone Hcl 50 Mg Tablet) 50 mg PO BEDTIME PRN PRN Reason: Insomnia Last Admin: 12/30/24 23:38 Dose: 50 mg Trazodone HCl (Trazodone Hcl 100 Mg Tablet) 100 mg PO BEDTIME [facility] Last Admin: 12/31/24 21:49 Dose: 100 mg Allergies Allergies Allergy/AdvReac Type Severity Reaction Status Date / Time No Known Allergies Allergy Verified 11/30/24 02:25 Assessment & Plan Assessment & Plan (1) Fall: Status: Acute Code(s): W19.XXXA - Unspecified fall, initial encounter (2) Hypotension: Status: Acute Code(s): I95.9 - Hypotension, unspecified Plan Mr. Quintero is a 79 year-old male with hx of Dementia, it does appear to be of Lewy Body with periods of visual hallucinations, autonomic dysfunction, some degree of fluctuation in terms of orientation. HCP has been invoked, he is CV by HCP. Will continue seroquel for now and assess efficacy. PLAN 12/05 d/c seroquel, continue only risperidone. continue to monitor hotn, on midodrine. 12/06 hit head, ordered head CT no new intracraneal bleed. subdural hematoma noted again. continue bladder scans q6h straigh cath if pvr>500cc 12/07 continue tx. added low dose clonazepam 0.125mg po TID. 12/08 continue tx. 12/09 add low dose depakote 125mg PO BID. Note pt has very low albumin level (check free VPA, instead or total). continue risperidone, no EPS noted. Continue low dose of clonazepam. 12/10: no change today 12/11: aggressive, refusing meds - no treatment plan change yet 12/12 increase depakote to 250mg po BID, continue all other medications. 12/13 change clonazepam for valium 5mg po TID, back IM per HCP. change risperidone for low dose prolixin so he can receive back IM if not taking po per HCP. 12/14 continue tx. appears calmer today. 12/15 continue tx. 12/16 continue tx. 12/17 remains intermittently combative and today [place] [facility]using all meds. -Has been having very little fluid intake over past 2 days so will get labs -Patient's nurse, Etelvina Gleason reviewed microbiology and television writer agrees that current antibiotic should likely be changed given sensitivities; hospitalist consult placed PLAN: -DC Ceftin (not indicated) -START Ampicillin 500mg q6h for 10 days (Ampicillin is sensitive and comes in IM) 12/18 same presentation Bun/Cr grossly WNL Continue Ampicillin 500mg q6h for 10 days (Ampicillin is sensitive and comes in IM) 12/19 continues to present as irritable, significant decrease in oral intake in past 2 days. refusing other medications. pending CMP/CBC. Hospitalist following. Left VM for , HCP, Yesica with call back number. 12/20 continues to present with intermittent agitation and refusing care at times, irritable and combative with direct care. 12/21 will change prolixin to olanzapine 2.5mg po TID, back IM limited to BID, not TID to avoid several IM in one day and also bioavailability of olanzapine higher when given IM. 12/22 continue tx. family meeting to discuss goals of care including ESCORT SERVICE ATTENDANT. 12/23 continue tx. hold giving IM if pt sedated/somnolent. when missing doses of meds pt gets agitated- so given IMs today at med times- 12/25/24 CTP 12/26 will simply regimen as he is not taking much medications po. d/c depakote, atorvastatin (now ESCORT SERVICE ATTENDANT), remeron. will add schedule trazodone for sleep. continue olanzapine and back up IM. HOLD IM if pt sleeping or oversedated. 12/27 increase trazodone at bedtime 100mg po qhs. continue to simply regimen including d/c omeprazole. 12/28 continue tx. 12/29 continue tx. 01/02/2024: No changes Reason for continued inpatient stay Substantial Risk for: inability to function and med/psych decompensation Time Spent With Patient Time: Total time managing care of this patient today ____ minutes.
[2025-01-01 20:00] VITALS: BP 99/66; PULSE 88; RESP 16; TEMP 36.3; O2SAT 98
[2025-01-01] MEDS: diazePAM 10 MG/2 ML CARTRIDGE 5 MG IM (21:59)
[2025-01-01] MEDS: OLANZapine 10 MG VIAL 5 MG IM (22:00)
[2025-01-02] MEDS: Morphine Sulfate Oral Sol 10 MG/5 ML SOLUTION 2.5 MG PO ×2 (03:09→20:15)
[2025-01-02] MEDS: diazePAM 10 MG/2 ML CARTRIDGE 5 MG IM ×3 (08:41→22:23)
[2025-01-02] MEDS: OLANZapine 10 MG VIAL 5 MG IM ×2 (08:41→22:23)
--- NOTE | 2025-01-02 13:34 | P.PNPSI_ITS ---
Subjective Subjective Date of Service: 01/02/25 Reason For Visit: agitation Subjective Notes: Conditional Voluntary Healthcare Proxy: Yes Interim History: Pt continues to have difficulty sleeping. He sleeps more during the day but continues to refuse medications. continues on a one to one. Diagnostics Vital Signs (24Hr): Vital Signs - 24 hr 01/01/25 20:00 Temperature 97.4 F Pulse Rate 88 Respiratory Rate 16 Blood Pressure 99/66 Pulse Oximetry 98 Oxygen Delivery Method Room Air BMI result Body Mass Index 21.5 Labs 01/03/25 08:10 12/21/24 15:02 Imaging Radiology Impressions: ITS Impressions Clavicle X-Ray 11/30/24 08:08 IMPRESSION: Inferiorly displaced fracture distal right clavicle, probable old. Degenerative changes, right shoulder. Consider calcific tendinosis/tendinopathy, supraspinatus. Electronically signed by: Raghav Porras MD 11/30/2024 09:28 AM EDT RP Head CT 12/06/24 10:46 IMPRESSION: Continued evolution of a right frontoparietal subdural hematoma measuring up to 6 mm in thickness with mild mass effect. No intracranial hemorrhage or other acute intracranial abnormality. Electronically signed by: Miguel Ness MD 12/06/2024 11:23 AM EDT RP Elbow X-Ray 12/07/24 09:11 IMPRESSION: No evidence of fracture of the right elbow. Electronically signed by: Blayne Avila MD 12/07/2024 09:43 AM EDT RP Elbow X-Ray 12/07/24 09:13 IMPRESSION: No evidence of fracture of the left elbow. Electronically signed by: Blayne Avila MD 12/07/2024 09:44 AM EDT RP Humerus X-Ray 12/07/24 14:02 IMPRESSION: No acute fracture, left humerus. No change Electronically signed by: Raghav Porras MD 12/07/2024 02:14 PM EDT RP Medications Medications Current Medications Acetaminophen (Acetaminophen 325 Mg Tablet) 650 mg PO Q6H PRN PRN Reason: Headache/Pain, Scale 1-10 Last Admin: 12/11/24 20:19 Dose: 650 mg Al Hydroxide/Mg Hydroxide (Magnesium Hydrox/Alum Hydrox 30 Ml Oral.Susp) 30 ml PO Q6H PRN PRN Reason: Heartburn/Nausea Bisacodyl (Bisacodyl 10 Mg Supp.Rect) 10 mg [place] DAILY PRN PRN Reason: Constipation Last Admin: 12/08/24 16:44 Dose: 10 mg Diazepam (Diazepam 2 Mg Tablet) 2 mg PO TID [facility] Last Admin: 01/02/25 08:42 Dose: Not Given Diazepam (Diazepam 10 Mg/2 Ml Cartridge) 5 mg IM TID PRN PRN Reason: if refuses Po,hold ifsedation Last Admin: 01/02/25 08:41 Dose: 5 mg Finasteride (Finasteride 5 Mg Tablet) 5 mg PO DAILY [facility] Last Admin: 01/02/25 08:42 Dose: Not Given Fludrocortisone Acetate (Fludrocortisone Acetate 0.1 Mg Tablet) 0.2 mg PO DAILY [facility] Last Admin: 01/02/25 08:42 Dose: Not Given Hydrocortisone (Hydrocortisone 1 % Ointment 28.35 Gm Tube) 1 appl TOPICAL BID [facility]; Protocol Last Admin: 01/02/25 08:42 Dose: Not Given Magnesium Hydroxide (Milk Of Magnesia 30 Ml Oral.Susp) 30 ml PO DAILY PRN PRN Reason: Constipation Midodrine (Midodrine Hcl 10 Mg Tablet) 10 mg PO TIDWM [facility] Last Admin: 01/02/25 11:27 Dose: Not Given Morphine Sulfate (Morphine Sulfate Oral Reina 10 Mg/5 Ml Solution) 2.5 mg PO Q4H PRN PRN Reason: Pain, Moderate(Pain Scale 4-6) Last Admin: 01/02/25 03:09 Dose: 2.5 mg Olanzapine (Olanzapine 5 Mg Tablet) 5 mg PO Q6H PRN PRN Reason: agitation Last Admin: 12/30/24 23:38 Dose: 5 mg Olanzapine (Olanzapine 2.5 Mg Tablet) 2.5 mg PO TID [facility] Last Admin: 01/02/25 08:42 Dose: Not Given Olanzapine (Olanzapine 10 Mg Vial) 5 mg IM BID PRN PRN Reason: if refuses oral olanzapine Last Admin: 01/02/25 08:41 Dose: 5 mg Senna (Sennosides 8.6 Mg Tablet) 8.6 mg PO Q12H PRN PRN Reason: Constipation Sodium Biphosphate/Sodium Phosphate (Sodium Phosphate,[place]-Dibasic 133 Ml Enema) 118 ml [place] DAILY PRN PRN Reason: Constipation Tamsulosin HCl (Tamsulosin Hcl 0.4 Mg Capsule) 0.4 mg PO DAILY [facility] Last Admin: 01/02/25 08:43 Dose: Not Given Trazodone HCl (Trazodone Hcl 50 Mg Tablet) 50 mg PO BEDTIME PRN PRN Reason: Insomnia Last Admin: 12/30/24 23:38 Dose: 50 mg Trazodone HCl (Trazodone Hcl 100 Mg Tablet) 100 mg PO BEDTIME [facility] Last Admin: 01/01/25 22:05 Dose: Not Given Allergies Allergies Allergy/AdvReac Type Severity Reaction Status Date / Time No Known Allergies Allergy Verified 11/30/24 02:25 Assessment & Plan Assessment & Plan (1) Major neurocognitive disorder due to multiple etiologies, with psychotic disturbance: Status: Acute Code(s): F02.82 - Dementia in other diseases classified elsewhere, unspecified severity, with psychotic disturbance (2) Fall: Status: Acute Code(s): W19.XXXA - Unspecified fall, initial encounter (3) Hypotension: Status: Acute Code(s): I95.9 - Hypotension, unspecified Plan Mr. Quintero is a 79 year-old male with hx of neurocognitive disorder. 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 12/30 continues to present as agitated, not taking medications, one to one due to fall risk. 01/02 continue tx. Reason for continued inpatient stay Substantial Risk for: inability to function Time Spent With Patient Time: Total time managing care of this patient today ____ minutes.
[2025-01-03 08:14] LABS: MANUAL DIFF FLAG NO
[2025-01-03 08:18] LABS: Hematocrit 36.1 % (42.0-52.0); Hemoglobin 11.5 g/dl (14.0-18.0); Imm Gran Abs Auto 0.01 X10*3/uL (0.00-0.03); Imm Gran Pct Auto 0.1 % (0.0-0.4); Lymphocytes Absolute Auto 1.4 X10*3/uL (1.2-4.9); Mean Corpuscular HGB Conc 31.9 g/dl (31.0-36.0); Mean Corpuscular Hemoglobin 31.3 pg (27.0-33.0); Mean Corpuscular Volume 98.4 fL (80.0-98.0); NRBC Abs Auto 0.000 X10*3/uL (0.0-0.012); NRBC Pct Auto 0.0 /100WBC (0.0-0.2); Platelet Count 223 X10*3/uL (160-400); Red Blood Count 3.67 X10*6/uL (4.60-5.80); White Blood Count 8.2 X10*3/uL (4.8-10.8)
--- NOTE | 2025-01-03 08:51 | PC.NURSE ---
pt having Blood dripping out of his penis during shower, Provider notified.
--- NOTE | 2025-01-03 09:22 | P.PNIM_ITS ---
Subjective Subjective Date of Service: 01/03/25 Interval History: Jose Manuel blood Physical Exam 2 Vital Signs: Vital Signs: Last Vital Signs Temp 97.4 F 01/01/25 20:00 Pulse 88 01/01/25 20:00 Resp 16 01/01/25 20:00 BP 99/66 01/01/25 20:00 Pulse Ox 98 01/01/25 20:00 O2 Del Method Room Air 01/01/25 20:00 BMI result Body Mass Index 21.5 Objective Data Active Medications Acetaminophen (Acetaminophen 325 Mg Tablet) 650 mg PO Q6H PRN PRN Reason: Headache/Pain, Scale 1-10 Last Admin: 12/11/24 20:19 Dose: 650 mg Documented By: REBECA Al Hydroxide/Mg Hydroxide (Magnesium Hydrox/Alum Hydrox 30 Ml Oral.Susp) 30 ml PO Q6H PRN PRN Reason: Heartburn/Nausea Bisacodyl (Bisacodyl 10 Mg Supp.Rect) 10 mg IN DAILY PRN PRN Reason: Constipation Last Admin: 12/08/24 16:44 Dose: 10 mg Documented By: FREDDY Diazepam (Diazepam 2 Mg Tablet) 2 mg PO TID [facility] Last Admin: 01/03/25 07:46 Dose: 2 mg Documented By: ISABELL Diazepam (Diazepam 10 Mg/2 Ml Cartridge) 5 mg IM TID PRN PRN Reason: if refuses Po,hold ifsedation Last Admin: 01/02/25 22:23 Dose: 5 mg Documented By: DEANDRA Finasteride (Finasteride 5 Mg Tablet) 5 mg PO DAILY [facility] Last Admin: 01/03/25 07:45 Dose: 5 mg Documented By: ISABELL Fludrocortisone Acetate (Fludrocortisone Acetate 0.1 Mg Tablet) 0.2 mg PO DAILY [facility] Last Admin: 01/03/25 07:45 Dose: 0.2 mg Documented By: ISABELL Hydrocortisone (Hydrocortisone 1 % Ointment 28.35 Gm Tube) 1 appl TOPICAL BID [facility]; Protocol Last Admin: 01/03/25 07:54 Dose: Not Given Documented By: ISABELL Non-Admin Reason: Patient Refused Magnesium Hydroxide (Milk Of Magnesia 30 Ml Oral.Susp) 30 ml PO DAILY PRN PRN Reason: Constipation Midodrine (Midodrine Hcl 10 Mg Tablet) 10 mg PO TIDWM [facility] Last Admin: 01/03/25 07:54 Dose: Not Given Documented By: ISABELL Non-Admin Reason: Patient Refused Morphine Sulfate (Morphine Sulfate Oral Reina 10 Mg/5 Ml Solution) 2.5 mg PO Q4H PRN PRN Reason: Pain, Moderate(Pain Scale 4-6) Last Admin: 01/02/25 20:15 Dose: 2.5 mg Documented By: DEANDRA Olanzapine (Olanzapine 5 Mg Tablet) 5 mg PO Q6H PRN PRN Reason: agitation Last Admin: 12/30/24 23:38 Dose: 5 mg Documented By: REBECA Olanzapine (Olanzapine 2.5 Mg Tablet) 2.5 mg PO TID [facility] Last Admin: 01/03/25 07:46 Dose: 2.5 mg Documented By: ISABELL Olanzapine (Olanzapine 10 Mg Vial) 5 mg IM BID PRN PRN Reason: if refuses oral olanzapine Last Admin: 01/02/25 22:23 Dose: 5 mg Documented By: DEANDRA Senna (Sennosides 8.6 Mg Tablet) 8.6 mg PO Q12H PRN PRN Reason: Constipation Sodium Biphosphate/Sodium Phosphate (Sodium Phosphate,[place]-Dibasic 133 Ml Enema) 118 ml IN DAILY PRN PRN Reason: Constipation Tamsulosin HCl (Tamsulosin Hcl 0.4 Mg Capsule) 0.4 mg PO DAILY [facility] Last Admin: 01/03/25 07:54 Dose: Not Given Documented By: ISABELL Non-Admin Reason: Patient Refused Trazodone HCl (Trazodone Hcl 50 Mg Tablet) 50 mg PO BEDTIME PRN PRN Reason: Insomnia Last Admin: 12/30/24 23:38 Dose: 50 mg Documented By: REBECA Trazodone HCl (Trazodone Hcl 100 Mg Tablet) 100 mg PO BEDTIME [facility] Last Admin: 01/02/25 22:11 Dose: Not Given Documented By: DEANDRA Non-Admin Reason: Patient Refused Labs 01/03/25 08:10 12/21/24 15:02 Labs: Laboratory Results - last 24 hr 01/03/25 08:10 MCV 98.4 H MCH 31.3 MCHC 31.9 RDW 14.9 Plt Count 223 MPV 9.7 Immature Gran % (Auto) 0.1 Neut % (Auto) 72.5 Lymph % (Auto) 16.6 L [place] % (Auto) 7.8 Eos % (Auto) 2.4 Baso % (Auto) 0.6 Lymph # (Auto) 1.4 [place] # (Auto) 0.6 Eos # (Auto) 0.2 Baso # (Auto) 0.1 Abs Immat Gran (auto) 0.01 Absolute Neuts (auto) 5.9 Absolute Nucleated RBC 0.000 Nucleated RBC % (auto) 0.0 Quality Stroke Does the patient have a stroke diagnosis?: No VTE Prior VTE?: No VTE Risk Level:: Medical - low VTE Device Contraindication: Treatment Not Indicated VTE Drug Contraindication: Treatment Not Indicated
--- NOTE | 2025-01-03 14:12 | PM.EVENT ---
Event Note Date of Service: 01/03/25 Event Note: Nursing reports deion red blood from his penis during the shower, his H&H was stable this morning. Consulted Urology to see patient. Not on any anticoagulants. Time Spent With Patient Time: Total time managing care of this patient today ____ minutes.
[2025-01-03] MEDS: diazePAM 10 MG/2 ML CARTRIDGE 5 MG IM (14:44)
--- NOTE | 2025-01-03 19:44 | HO.PSYCHPN ---
Subjective Subjective Date of Service: 01/03/25 Reason For Visit: agitation Subjective Notes: Conditional Voluntary Healthcare Proxy: Yes Interim History: Pt continues to have difficulty sleeping. He sleeps more during the day but continues to refuse medications. continues on a one to one. Irritable and combative during the day. Medication Compliance: Yes Review of Systems Review of Systems Limited due to patient's cognition. 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 and are negative, Unobtainable due to mental condition and Unobtainable due to mental status Diagnostics Vital Signs (24Hr): BMI result Body Mass Index 21.5 Labs 01/03/25 08:10 12/21/24 15:02 Labs: Laboratory Results - last 48 hr 01/03/25 08:10 WBC 8.2 RBC 3.67 L Hgb 11.5 L Hct 36.1 L MCV 98.4 H MCH 31.3 MCHC 31.9 RDW 14.9 Plt Count 223 MPV 9.7 Immature Gran % (Auto) 0.1 Neut % (Auto) 72.5 Lymph % (Auto) 16.6 L [place] % (Auto) 7.8 Eos % (Auto) 2.4 Baso % (Auto) 0.6 Lymph # (Auto) 1.4 [place] # (Auto) 0.6 Eos # (Auto) 0.2 Baso # (Auto) 0.1 Abs Immat Gran (auto) 0.01 Absolute Neuts (auto) 5.9 Absolute Nucleated RBC 0.000 Nucleated RBC % (auto) 0.0 Imaging Radiology Impressions: ITS Impressions Clavicle X-Ray 11/30/24 08:08 IMPRESSION: Inferiorly displaced fracture distal right clavicle, probable old. Degenerative changes, right shoulder. Consider calcific tendinosis/tendinopathy, supraspinatus. Electronically signed by: Raghav Porras MD 11/30/2024 09:28 AM EDT RP Head CT 12/06/24 10:46 IMPRESSION: Continued evolution of a right frontoparietal subdural hematoma measuring up to 6 mm in thickness with mild mass effect. No intracranial hemorrhage or other acute intracranial abnormality. Electronically signed by: Miguel Ness MD 12/06/2024 11:23 AM EDT RP Elbow X-Ray 12/07/24 09:11 IMPRESSION: No evidence of fracture of the right elbow. Electronically signed by: Blayne Avila MD 12/07/2024 09:43 AM EDT RP Elbow X-Ray 12/07/24 09:13 IMPRESSION: No evidence of fracture of the left elbow. Electronically signed by: Blayne Avila MD 12/07/2024 09:44 AM EDT RP Humerus X-Ray 12/07/24 14:02 IMPRESSION: No acute fracture, left humerus. No change Electronically signed by: Raghav Porras MD 12/07/2024 02:14 PM EDT RP Medications Medications Current Medications Acetaminophen (Acetaminophen 325 Mg Tablet) 650 mg PO Q6H PRN PRN Reason: Headache/Pain, Scale 1-10 Last Admin: 12/11/24 20:19 Dose: 650 mg Al Hydroxide/Mg Hydroxide (Magnesium Hydrox/Alum Hydrox 30 Ml Oral.Susp) 30 ml PO Q6H PRN PRN Reason: Heartburn/Nausea Bisacodyl (Bisacodyl 10 Mg Supp.Rect) 10 mg [place] DAILY PRN PRN Reason: Constipation Last Admin: 12/08/24 16:44 Dose: 10 mg Diazepam (Diazepam 2 Mg Tablet) 2 mg PO TID [facility] Last Admin: 01/03/25 14:44 Dose: Not Given Diazepam (Diazepam 10 Mg/2 Ml Cartridge) 5 mg IM TID PRN PRN Reason: if refuses Po,hold ifsedation Last Admin: 01/03/25 14:44 Dose: 5 mg Finasteride (Finasteride 5 Mg Tablet) 5 mg PO DAILY [facility] Last Admin: 01/03/25 07:45 Dose: 5 mg Fludrocortisone Acetate (Fludrocortisone Acetate 0.1 Mg Tablet) 0.2 mg PO DAILY [facility] Last Admin: 01/03/25 07:45 Dose: 0.2 mg Hydrocortisone (Hydrocortisone 1 % Ointment 28.35 Gm Tube) 1 appl TOPICAL BID [facility]; Protocol Last Admin: 01/03/25 07:54 Dose: Not Given Magnesium Hydroxide (Milk Of Magnesia 30 Ml Oral.Susp) 30 ml PO DAILY PRN PRN Reason: Constipation Midodrine (Midodrine Hcl 10 Mg Tablet) 10 mg PO TIDWM [facility] Last Admin: 01/03/25 16:05 Dose: Not Given Morphine Sulfate (Morphine Sulfate Oral Reina 10 Mg/5 Ml Solution) 2.5 mg PO Q4H PRN PRN Reason: Pain, Moderate(Pain Scale 4-6) Last Admin: 01/02/25 20:15 Dose: 2.5 mg Olanzapine (Olanzapine 2.5 Mg Tablet) 2.5 mg PO TID [facility] Last Admin: 01/03/25 14:44 Dose: Not Given Olanzapine (Olanzapine 10 Mg Vial) 5 mg IM BID PRN PRN Reason: if refuses oral olanzapine Last Admin: 01/02/25 22:23 Dose: 5 mg Olanzapine (Olanzapine Odt 10 Mg Tab.Rapdis) 10 mg TRANSLINGU Q6H PRN PRN Reason: agitation Senna (Sennosides 8.6 Mg Tablet) 8.6 mg PO Q12H PRN PRN Reason: Constipation Sodium Biphosphate/Sodium Phosphate (Sodium Phosphate,[place]-Dibasic 133 Ml Enema) 118 ml [place] DAILY PRN PRN Reason: Constipation Tamsulosin HCl (Tamsulosin Hcl 0.4 Mg Capsule) 0.4 mg PO DAILY [facility] Last Admin: 01/03/25 07:54 Dose: Not Given Trazodone HCl (Trazodone Hcl 50 Mg Tablet) 50 mg PO BEDTIME PRN PRN Reason: Insomnia Last Admin: 12/30/24 23:38 Dose: 50 mg Trazodone HCl (Trazodone Hcl 100 Mg Tablet) 100 mg PO BEDTIME [facility] Last Admin: 01/02/25 22:11 Dose: Not Given Trimethoprim/Sulfamethoxazole (Sulfamethox/Trimeth 800/160 Tablet) 1 tab PO Q12H [facility] Last Admin: 01/03/25 17:53 Dose: Not Given Allergies Allergies Allergy/AdvReac Type Severity Reaction Status Date / Time No Known Allergies Allergy Verified 11/30/24 02:25 Assessment & Plan Assessment & Plan (1) Major neurocognitive disorder due to multiple etiologies, with psychotic disturbance: Status: Acute Code(s): F02.82 - Dementia in other diseases classified elsewhere, unspecified severity, with psychotic disturbance (2) Fall: Status: Acute Code(s): W19.XXXA - Unspecified fall, initial encounter (3) Hypotension: Status: Acute Code(s): I95.9 - Hypotension, unspecified Plan Mr. Quintero is a 79 year-old male with hx of neurocognitive disorder. 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 12/30 continues to present as agitated, not taking medications, one to one due to fall risk. 01/02 continue tx 01/03 increase valium to 5mg po TID. Reason for continued inpatient stay Substantial Risk for: inability to function Time Spent With Patient Time: Total time managing care of this patient today ____ minutes.
[2025-01-04] MEDS: OLANZapine ODT 10 MG TAB.RAPDIS TRANSLINGU ×2 (02:53→20:04)
[2025-01-04 08:38] VITALS: BP 78/45
[2025-01-04] MEDS: Hydrocortisone 1 % Ointment 28.35 GM TUBE 1 APPL TOPICAL (09:17)
[2025-01-04 13:16] VITALS: BP 80/45
--- NOTE | 2025-01-04 16:47 | P.PNPSI_ITS ---
Subjective Subjective Date of Service: 01/04/25 Reason For Visit: agitation Subjective Notes: Conditional Voluntary Interim History: pt continues to have difficulty sleeping. not taking most of oral medications. He sleeps more during the day, irritable when approach by staff. Review of Systems Review of Systems Limited due to patient's cognition. 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 Diagnostics Vital Signs (24Hr): Vital Signs - 24 hr 01/04/25 08:38 01/04/25 13:16 Blood Pressure 78/45 L 80/45 L BMI result Body Mass Index 21.5 Labs 01/03/25 08:10 12/21/24 15:02 Labs: Laboratory Results - last 48 hr 01/03/25 08:10 WBC 8.2 RBC 3.67 L Hgb 11.5 L Hct 36.1 L MCV 98.4 H MCH 31.3 MCHC 31.9 RDW 14.9 Plt Count 223 MPV 9.7 Immature Gran % (Auto) 0.1 Neut % (Auto) 72.5 Lymph % (Auto) 16.6 L Dawson % (Auto) 7.8 Eos % (Auto) 2.4 Baso % (Auto) 0.6 Lymph # (Auto) 1.4 Dawson # (Auto) 0.6 Eos # (Auto) 0.2 Baso # (Auto) 0.1 Abs Immat Gran (auto) 0.01 Absolute Neuts (auto) 5.9 Absolute Nucleated RBC 0.000 Nucleated RBC % (auto) 0.0 Imaging Radiology Impressions: ITS Impressions Clavicle X-Ray 11/30/24 08:08 IMPRESSION: Inferiorly displaced fracture distal right clavicle, probable old. Degenerative changes, right shoulder. Consider calcific tendinosis/tendinopathy, supraspinatus. Electronically signed by: Raghav Porras MD 11/30/2024 09:[address] 12/06/24 10:46 IMPRESSION: Continued evolution of a right frontoparietal subdural hematoma measuring up to 6 mm in thickness with mild mass effect. No intracranial hemorrhage or other acute intracranial abnormality. Electronically signed by: Miguel Ness MD 12/06/2024 11:23 AM EDT RP Elbow X-Ray 12/07/24 09:11 IMPRESSION: No evidence of fracture of the right elbow. Electronically signed by: Blayne Avila MD 12/07/2024 09:43 AM EDT RP Elbow X-Ray 12/07/24 09:13 IMPRESSION: No evidence of fracture of the left elbow. Electronically signed by: Blayne Avila MD 12/07/2024 09:44 AM EDT RP Humerus X-Ray 12/07/24 14:02 IMPRESSION: No acute fracture, left humerus. No change Electronically signed by: Raghav Porras MD 12/07/2024 02:14 PM EDT RP Medications Medications Current Medications Acetaminophen (Acetaminophen 325 Mg Tablet) 650 mg PO Q6H PRN PRN Reason: Headache/Pain, Scale 1-10 Last Admin: 12/11/24 20:19 Dose: 650 mg Al Hydroxide/Mg Hydroxide (Magnesium Hydrox/Alum Hydrox 30 Ml Oral.Susp) 30 ml PO Q6H PRN PRN Reason: Heartburn/Nausea Bisacodyl (Bisacodyl 10 Mg Supp.Rect) 10 mg [place] DAILY PRN PRN Reason: Constipation Last Admin: 12/08/24 16:44 Dose: 10 mg Diazepam (Diazepam 10 Mg/2 Ml Cartridge) 5 mg IM TID PRN PRN Reason: if refuses Po,hold ifsedation Last Admin: 01/03/25 14:44 Dose: 5 mg Diazepam (Diazepam 5 Mg Tablet) 5 mg PO TID [facility] Last Admin: 01/04/25 14:31 Dose: 5 mg Finasteride (Finasteride 5 Mg Tablet) 5 mg PO DAILY [facility] Last Admin: 01/04/25 08:33 Dose: 5 mg Fludrocortisone Acetate (Fludrocortisone Acetate 0.1 Mg Tablet) 0.2 mg PO DAILY [facility] Last Admin: 01/04/25 08:33 Dose: 0.2 mg Hydrocortisone (Hydrocortisone 1 % Ointment 28.35 Gm Tube) 1 appl TOPICAL BID [facility]; Protocol Last Admin: 01/04/25 09:17 Dose: 1 appl Magnesium Hydroxide (Milk Of Magnesia 30 Ml Oral.Susp) 30 ml PO DAILY PRN PRN Reason: Constipation Midodrine (Midodrine Hcl 10 Mg Tablet) 10 mg PO TIDWM [facility] Last Admin: 01/04/25 13:16 Dose: Not Given Morphine Sulfate (Morphine Sulfate Oral Reina 10 Mg/5 Ml Solution) 2.5 mg PO Q4H PRN PRN Reason: Pain, Moderate(Pain Scale 4-6) Last Admin: 01/02/25 20:15 Dose: 2.5 mg Olanzapine (Olanzapine 10 Mg Vial) 5 mg IM BID PRN PRN Reason: if refuses oral olanzapine Last Admin: 01/02/25 22:23 Dose: 5 mg Olanzapine (Olanzapine Odt 10 Mg Tab.Rapdis) 10 mg TRANSLINGU Q6H PRN PRN Reason: agitation Last Admin: 01/04/25 02:53 Dose: 10 mg Olanzapine (Olanzapine 5 Mg Tablet) 5 mg PO TID [facility] Last Admin: 01/04/25 14:32 Dose: 5 mg Senna (Sennosides 8.6 Mg Tablet) 8.6 mg PO Q12H PRN PRN Reason: Constipation Sodium Biphosphate/Sodium Phosphate (Sodium Phosphate,Dawson-Dibasic 133 Ml Enema) 118 ml [place] DAILY PRN PRN Reason: Constipation Tamsulosin HCl (Tamsulosin Hcl 0.4 Mg Capsule) 0.4 mg PO DAILY [facility] Last Admin: 01/04/25 08:33 Dose: 0.4 mg Trazodone HCl (Trazodone Hcl 50 Mg Tablet) 50 mg PO BEDTIME PRN PRN Reason: Insomnia Last Admin: 01/04/25 02:53 Dose: 50 mg Trazodone HCl (Trazodone Hcl 100 Mg Tablet) 100 mg PO BEDTIME [facility] Last Admin: 01/03/25 21:37 Dose: 100 mg Trimethoprim/Sulfamethoxazole (Sulfamethox/Trimeth 800/160 Tablet) 1 tab PO Q12H [facility] Last Admin: 01/04/25 07:13 Dose: Not Given Allergies Allergies Allergy/AdvReac Type Severity Reaction Status Date / Time No Known Allergies Allergy Verified 11/30/24 02:25 Assessment & Plan Assessment & Plan (1) Major neurocognitive disorder due to multiple etiologies, with psychotic disturbance: Status: Acute Code(s): F02.82 - Dementia in other diseases classified elsewhere, unspecified severity, with psychotic disturbance (2) Fall: Status: Acute Code(s): W19.XXXA - Unspecified fall, initial encounter (3) Hypotension: Status: Acute Code(s): I95.9 - Hypotension, unspecified Plan Mr. Quintero is a 79 year-old male with hx of neurocognitive disorder. 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 12/30 continues to present as agitated, not taking medications, one to one due to fall risk. 01/02 continue tx 01/03 increase valium to 5mg po TID. 01/04 continue tx. Reason for continued inpatient stay Substantial Risk for: inability to function Time Spent With Patient Time: Total time managing care of this patient today ____ minutes.
[2025-01-04 17:10] VITALS: BP 82/68
[2025-01-04] MEDS: Sulfamethox/Trimeth 800/160 TABLET 1 TAB PO (17:10)
[2025-01-05] MEDS: Morphine Sulfate Oral Sol 10 MG/5 ML SOLUTION 2.5 MG PO (01:40)
[2025-01-05] MEDS: Sulfamethox/Trimeth 800/160 TABLET 1 TAB PO (06:03)
--- NOTE | 2025-01-05 10:48 | PC.NURSE ---
AM meds can be given when pt wakes up/per provider Jaja Heck NP.
[2025-01-05 11:05] VITALS: BP 85/52
[2025-01-05] MEDS: Hydrocortisone 1 % Ointment 28.35 GM TUBE 1 APPL TOPICAL (11:06)
--- NOTE | 2025-01-05 12:28 | PC.NURSE ---
Patient sleeping at am. Meds including Midodrine given with ice cream when awakened about 11 am. Bladder scan 462cc, str cath for about 150cc. Pt is calm, not much resistance during care. BP 85/52 at 8am and 78/46 at 12pm manually. No other po intake except for ice cream. Provider Jaja Heck NP notified and aware. Will continue to monitor.
[2025-01-05 13:35] VITALS: BMI 20.1
[2025-01-05 13:39] VITALS: BP 78/46
[2025-01-05 17:25] VITALS: BP 80/50
--- NOTE | 2025-01-05 17:32 | HO.PSYCHPN ---
Subjective Subjective Date of Service: 01/05/25 Reason For Visit: agitation Subjective Notes: Conditional Voluntary Healthcare Proxy: Yes Interim History: Pt continues to have difficulty sleeping. He sleeps more during the day but continues to refuse medications. continues on a one to one. Irritable and combative during the day. Review of Systems Review of Systems Limited due to patient's cognition. 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 Diagnostics Vital Signs (24Hr): Vital Signs - 24 hr 01/05/25 11:05 01/05/25 13:39 01/05/25 17:25 Blood Pressure 85/52 L 78/46 L 80/50 L BMI result Body Mass Index 20.1 Labs 01/03/25 08:10 12/21/24 15:02 Imaging Radiology Impressions: ITS Impressions Clavicle X-Ray 11/30/24 08:08 IMPRESSION: Inferiorly displaced fracture distal right clavicle, probable old. Degenerative changes, right shoulder. Consider calcific tendinosis/tendinopathy, supraspinatus. Electronically signed by: Raghav Porras MD 11/30/2024 09:28 AM EDT RP Head CT 12/06/24 10:46 IMPRESSION: Continued evolution of a right frontoparietal subdural hematoma measuring up to 6 mm in thickness with mild mass effect. No intracranial hemorrhage or other acute intracranial abnormality. Electronically signed by: Miguel Ness MD 12/06/2024 11:23 AM EDT RP Elbow X-Ray 12/07/24 09:11 IMPRESSION: No evidence of fracture of the right elbow. Electronically signed by: Blayne Avila MD 12/07/2024 09:43 AM EDT RP Elbow X-Ray 12/07/24 09:13 IMPRESSION: No evidence of fracture of the left elbow. Electronically signed by: Blayne Avila MD 12/07/2024 09:44 AM EDT RP Humerus X-Ray 12/07/24 14:02 IMPRESSION: No acute fracture, left humerus. No change Electronically signed by: Raghav Porras MD 12/07/2024 02:14 PM EDT Medications Medications Current Medications Acetaminophen (Acetaminophen 325 Mg Tablet) 650 mg PO Q6H PRN PRN Reason: Headache/Pain, Scale 1-10 Last Admin: 12/11/24 20:19 Dose: 650 mg Al Hydroxide/Mg Hydroxide (Magnesium Hydrox/Alum Hydrox 30 Ml Oral.Susp) 30 ml PO Q6H PRN PRN Reason: Heartburn/Nausea Bisacodyl (Bisacodyl 10 Mg Supp.Rect) 10 mg [place] DAILY PRN PRN Reason: Constipation Last Admin: 12/08/24 16:44 Dose: 10 mg Diazepam (Diazepam 5 Mg Tablet) 5 mg PO TID [facility] Last Admin: 01/05/25 16:01 Dose: 5 mg Diazepam (Diazepam 10 Mg/2 Ml Cartridge) 10 mg IM BID PRN PRN Reason: if refuses Po,hold ifsedation Finasteride (Finasteride 5 Mg Tablet) 5 mg PO DAILY [facility] Last Admin: 01/05/25 11:05 Dose: 5 mg Fludrocortisone Acetate (Fludrocortisone Acetate 0.1 Mg Tablet) 0.2 mg PO DAILY [facility] Last Admin: 01/05/25 11:06 Dose: 0.2 mg Hydrocortisone (Hydrocortisone 1 % Ointment 28.35 Gm Tube) 1 appl TOPICAL BID [facility]; Protocol Last Admin: 01/05/25 11:06 Dose: 1 appl Magnesium Hydroxide (Milk Of Magnesia 30 Ml Oral.Susp) 30 ml PO DAILY PRN PRN Reason: Constipation Midodrine (Midodrine Hcl 10 Mg Tablet) 10 mg PO TIDWM [facility] Last Admin: 01/05/25 17:25 Dose: Not Given Morphine Sulfate (Morphine Sulfate Oral Reina 10 Mg/5 Ml Solution) 2.5 mg PO Q4H PRN PRN Reason: Pain, Moderate(Pain Scale 4-6) Last Admin: 01/05/25 01:40 Dose: 2.5 mg Olanzapine (Olanzapine 10 Mg Vial) 5 mg IM BID PRN PRN Reason: if refuses oral olanzapine Last Admin: 01/02/25 22:23 Dose: 5 mg Olanzapine (Olanzapine Odt 10 Mg Tab.Rapdis) 10 mg TRANSLINGU Q6H PRN PRN Reason: agitation Last Admin: 01/04/25 20:04 Dose: 10 mg Olanzapine (Olanzapine 5 Mg Tablet) 5 mg PO TID [facility] Last Admin: 01/05/25 16:01 Dose: 5 mg Senna (Sennosides 8.6 Mg Tablet) 8.6 mg PO Q12H PRN PRN Reason: Constipation Sodium Biphosphate/Sodium Phosphate (Sodium Phosphate,Arroyo-Dibasic 133 Ml Enema) 118 ml [place] DAILY PRN PRN Reason: Constipation Tamsulosin HCl (Tamsulosin Hcl 0.4 Mg Capsule) 0.4 mg PO DAILY [facility] Last Admin: 01/05/25 11:06 Dose: 0.4 mg Trazodone HCl (Trazodone Hcl 50 Mg Tablet) 50 mg PO BEDTIME PRN PRN Reason: Insomnia Last Admin: 01/04/25 02:53 Dose: 50 mg Trazodone HCl (Trazodone Hcl 100 Mg Tablet) 100 mg PO BEDTIME [facility] Last Admin: 01/04/25 20:04 Dose: 100 mg Trimethoprim/Sulfamethoxazole (Sulfamethox/Trimeth 800/160 Tablet) 1 tab PO Q12H [facility] Last Admin: 01/05/25 06:03 Dose: 1 tab Allergies Allergies Allergy/AdvReac Type Severity Reaction Status Date / Time No Known Allergies Allergy Verified 11/30/24 02:25 Assessment & Plan Assessment & Plan (1) Major neurocognitive disorder due to multiple etiologies, with psychotic disturbance: Status: Acute Code(s): F02.82 - Dementia in other diseases classified elsewhere, unspecified severity, with psychotic disturbance (2) Fall: Status: Acute Code(s): W19.XXXA - Unspecified fall, initial encounter (3) Hypotension: Status: Acute Code(s): I95.9 - Hypotension, unspecified Plan Mr. Quintero is a 79 year-old male with hx of neurocognitive disorder. 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 12/30 continues to present as agitated, not taking medications, one to one due to fall risk. 01/02 continue tx 01/03 increase valium to 5mg po TID. 01/04 continue tx. 01/05 continue tx. Reason for continued inpatient stay Substantial Risk for: inability to function Time Spent With Patient Time: Total time managing care of this patient today ____ minutes.
[2025-01-05] MEDS: OLANZapine ODT 10 MG TAB.RAPDIS TRANSLINGU (17:45)
[2025-01-05] MEDS: OLANZapine 10 MG VIAL 5 MG IM (22:42)
[2025-01-05] MEDS: diazePAM 10 MG/2 ML CARTRIDGE IM (22:43)
[2025-01-06 08:14] VITALS: BP 105/55; PULSE 91; RESP 16; TEMP 36.6; O2SAT 97
[2025-01-06] MEDS: OLANZapine 10 MG VIAL 5 MG IM ×2 (09:19→22:08)
--- NOTE | 2025-01-06 09:33 | P.PNPSI_ITS ---
Subjective Subjective Date of Service: 01/06/25 Reason For Visit: agitation Subjective Notes: Conditional Voluntary Healthcare Proxy: Yes Interim History: pt continues to have difficulty sleeping. not taking most of oral medications. He sleeps more during the day, irritable when approach by staff. 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 Review of Systems Review of Systems Limited due to patient's cognition. 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 Diagnostics Vital Signs (24Hr): Vital Signs - 24 hr 01/05/25 11:05 01/05/25 13:39 01/05/25 17:25 Temperature Pulse Rate Respiratory Rate Blood Pressure 85/52 L 78/46 L 80/50 L Pulse Oximetry 01/06/25 08:14 Temperature 97.9 F Pulse Rate 91 Respiratory Rate 16 Blood Pressure 105/55 L Pulse Oximetry 97 BMI result Body Mass Index 20.1 Labs 01/03/25 08:10 12/21/24 15:02 Imaging Radiology Impressions: ITS Impressions Clavicle X-Ray 11/30/24 08:08 IMPRESSION: Inferiorly displaced fracture distal right clavicle, probable old. Degenerative changes, right shoulder. Consider calcific tendinosis/tendinopathy, supraspinatus. Electronically signed by: Raghav Porras MD 11/30/2024 09:28 AM EDT RP Head CT 12/06/24 10:46 IMPRESSION: Continued evolution of a right frontoparietal subdural hematoma measuring up to 6 mm in thickness with mild mass effect. No intracranial hemorrhage or other acute intracranial abnormality. Electronically signed by: Miguel Ness MD 12/06/2024 11:23 AM EDT RP Elbow X-Ray 12/07/24 09:11 IMPRESSION: No evidence of fracture of the right elbow. Electronically signed by: Blayne Avila MD 12/07/2024 09:43 AM EDT RP Elbow X-Ray 12/07/24 09:13 IMPRESSION: No evidence of fracture of the left elbow. Electronically signed by: Blayne Avila MD 12/07/2024 09:44 AM EDT RP Humerus X-Ray 12/07/24 14:02 IMPRESSION: No acute fracture, left humerus. No change Electronically signed by: Raghav Porras MD 12/07/2024 02:14 PM EDT RP Medications Medications Current Medications Acetaminophen (Acetaminophen 325 Mg Tablet) 650 mg PO Q6H PRN PRN Reason: Headache/Pain, Scale 1-10 Last Admin: 12/11/24 20:19 Dose: 650 mg Al Hydroxide/Mg Hydroxide (Magnesium Hydrox/Alum Hydrox 30 Ml Oral.Susp) 30 ml PO Q6H PRN PRN Reason: Heartburn/Nausea Bisacodyl (Bisacodyl 10 Mg Supp.Rect) 10 mg [place] DAILY PRN PRN Reason: Constipation Last Admin: 12/08/24 16:44 Dose: 10 mg Diazepam (Diazepam 5 Mg Tablet) 5 mg PO TID [facility] Last Admin: 01/06/25 08:45 Dose: Not Given Diazepam (Diazepam 10 Mg/2 Ml Cartridge) 10 mg IM BID PRN PRN Reason: if refuses Po,hold ifsedation Last Admin: 01/05/25 22:43 Dose: 10 mg Finasteride (Finasteride 5 Mg Tablet) 5 mg PO DAILY [facility] Last Admin: 01/06/25 08:45 Dose: Not Given Fludrocortisone Acetate (Fludrocortisone Acetate 0.1 Mg Tablet) 0.2 mg PO DAILY [facility] Last Admin: 01/06/25 08:45 Dose: Not Given Hydrocortisone (Hydrocortisone 1 % Ointment 28.35 Gm Tube) 1 appl TOPICAL BID [facility]; Protocol Last Admin: 01/06/25 08:23 Dose: Not Given Magnesium Hydroxide (Milk Of Magnesia 30 Ml Oral.Susp) 30 ml PO DAILY PRN PRN Reason: Constipation Midodrine (Midodrine Hcl 10 Mg Tablet) 10 mg PO TIDWM [facility] Last Admin: 01/06/25 08:44 Dose: Not Given Morphine Sulfate (Morphine Sulfate Oral Reina 10 Mg/5 Ml Solution) 2.5 mg PO Q4H PRN PRN Reason: Pain, Moderate(Pain Scale 4-6) Last Admin: 01/05/25 01:40 Dose: 2.5 mg Olanzapine (Olanzapine 10 Mg Vial) 5 mg IM BID PRN PRN Reason: if refuses oral olanzapine Last Admin: 01/06/25 09:19 Dose: 5 mg Olanzapine (Olanzapine Odt 10 Mg Tab.Rapdis) 10 mg TRANSLINGU Q6H PRN PRN Reason: agitation Last Admin: 01/05/25 17:45 Dose: 10 mg Olanzapine (Olanzapine 5 Mg Tablet) 5 mg PO TID [facility] Last Admin: 01/06/25 08:45 Dose: Not Given Senna (Sennosides 8.6 Mg Tablet) 8.6 mg PO Q12H PRN PRN Reason: Constipation Sodium Biphosphate/Sodium Phosphate (Sodium Phosphate,[place]-Dibasic 133 Ml Enema) 118 ml [place] DAILY PRN PRN Reason: Constipation Tamsulosin HCl (Tamsulosin Hcl 0.4 Mg Capsule) 0.4 mg PO DAILY [facility] Last Admin: 01/06/25 08:45 Dose: Not Given Trazodone HCl (Trazodone Hcl 50 Mg Tablet) 50 mg PO BEDTIME PRN PRN Reason: Insomnia Last Admin: 01/04/25 02:53 Dose: 50 mg Trazodone HCl (Trazodone Hcl 100 Mg Tablet) 100 mg PO BEDTIME [facility] Last Admin: 01/05/25 22:46 Dose: Not Given Trimethoprim/Sulfamethoxazole (Sulfamethox/Trimeth 800/160 Tablet) 1 tab PO Q12H [facility] Last Admin: 01/06/25 06:39 Dose: Not Given Allergies Allergies Allergy/AdvReac Type Severity Reaction Status Date / Time No Known Allergies Allergy Verified 11/30/24 02:25 Assessment & Plan Assessment & Plan (1) Major neurocognitive disorder due to multiple etiologies, with psychotic disturbance: Status: Acute Code(s): F02.82 - Dementia in other diseases classified elsewhere, unspecified severity, with psychotic disturbance (2) Fall: Status: Acute Code(s): W19.XXXA - Unspecified fall, initial encounter (3) Hypotension: Status: Acute Code(s): I95.9 - Hypotension, unspecified Plan Mr. Quintero is a 79 year-old male with hx of neurocognitive disorder. 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 12/30 continues to present as agitated, not taking medications, one to one due to fall risk. 01/02 continue tx 01/03 increase valium to 5mg po TID. 01/04 continue tx. 01/05 continue tx. 01/06 continue tx. declines most oral medications. Reason for continued inpatient stay Substantial Risk for: inability to function Time Spent With Patient Time: Total time managing care of this patient today ____ minutes.
[2025-01-06 20:00] VITALS: BP 103/53; PULSE 72; RESP 16; TEMP 36.1; O2SAT 99
--- NOTE | 2025-01-06 20:06 | PM.EVENT ---
Event Note Date of Service: 01/06/25 Event Note: Unwitnessed fall: Patient reports he slipped and fell onto the floor. Alert and awake. Denies any head strike. Denies any loss of consciousness. Moves all extremities equally. Neck is supple. Will obtain CT head, CT C-spine, CT abdomen pelvis. Fall precautions 1-1 observation Time Spent With Patient Time: Total time managing care of this patient today ____ minutes.
[2025-01-06 20:15] VITALS: BP 103/53; PULSE 72; RESP 16; TEMP 36.1; O2SAT 99
[2025-01-06] MEDS: diazePAM 10 MG/2 ML CARTRIDGE IM (22:09)
--- NOTE | 2025-01-07 05:58 | PC.NURSE ---
At 20:00 pt had an unwitnessed fall in his room. per pt, I was sitting at the edge of my bed, tried to get up, and fell. I did not hit my head, I have pain in my back [facility] was called, Dr Sepulveda and the rest of the team at pt's bedside. pt was assessed by MD, no injuries sustained, vitals wnl. pt was taken down for CT scan of the head/brain, abdomen/pelvis and spine, with no abnormalities found. pt brought back to unit and placed on 1:1 supervision. Pt's will be notified in the morning.
[2025-01-07 08:12] VITALS: BP 129/71; PULSE 85; RESP 16; TEMP 36.3; O2SAT 96
--- NOTE | 2025-01-07 12:41 | P.PNPSI_ITS ---
Subjective Subjective Date of Service: 01/07/25 Reason For Visit: agitation Subjective Notes: Conditional Voluntary Interim History: Patient was seen and discussed in rounds today. Records and plans were reviewed. He continues to be confused and sleeping a lot at times. I could not wake him up today. He continues to be on want to 1. He did not sleep much last night. No changes were made today so far. Review of Systems Review of Systems Yes Unobtainable due to mental status Mental Status Exam Mental Status Exam Narrative: Patient was sleeping and unarousable Diagnostics Vital Signs (24Hr): Vital Signs - 24 hr 01/06/25 20:00 01/06/25 20:15 01/07/25 08:12 Temperature 97.0 F 97 F 97.4 F Pulse Rate 72 72 85 Respiratory Rate 16 16 16 Blood Pressure 103/53 L 103/53 L 129/71 Pulse Oximetry 99 99 96 BMI result Body Mass Index 20.1 Labs 01/03/25 08:10 12/21/24 15:02 Imaging Radiology Impressions: ITS Impressions Clavicle X-Ray 11/30/24 08:08 IMPRESSION: Inferiorly displaced fracture distal right clavicle, probable old. Degenerative changes, right shoulder. Consider calcific tendinosis/tendinopathy, supraspinatus. Electronically signed by: Raghav Porras MD 11/30/2024 09:[address] 12/06/24 10:46 IMPRESSION: Continued evolution of a right frontoparietal subdural hematoma measuring up to 6 mm in thickness with mild mass effect. No intracranial hemorrhage or other acute intracranial abnormality. Electronically signed by: Miguel Ness MD 12/06/2024 11:23 AM EDT RP Elbow X-Ray 12/07/24 09:11 IMPRESSION: No evidence of fracture of the right elbow. Electronically signed by: Blayne Avila MD 12/07/2024 09:43 AM EDT RP Elbow X-Ray 12/07/24 09:13 IMPRESSION: No evidence of fracture of the left elbow. Electronically signed by: Blayne Avila MD 12/07/2024 09:44 AM EDT RP Humerus X-Ray 12/07/24 14:02 IMPRESSION: No acute fracture, left humerus. No change Electronically signed by: Raghav Porras MD 12/07/2024 02:14 PM EDT Medications Medications Current Medications Acetaminophen (Acetaminophen 325 Mg Tablet) 650 mg PO Q6H PRN PRN Reason: Headache/Pain, Scale 1-10 Last Admin: 12/11/24 20:19 Dose: 650 mg Al Hydroxide/Mg Hydroxide (Magnesium Hydrox/Alum Hydrox 30 Ml Oral.Susp) 30 ml PO Q6H PRN PRN Reason: Heartburn/Nausea Bisacodyl (Bisacodyl 10 Mg Supp.Rect) 10 mg [place] DAILY PRN PRN Reason: Constipation Last Admin: 12/08/24 16:44 Dose: 10 mg Diazepam (Diazepam 5 Mg Tablet) 5 mg PO TID [facility] Last Admin: 01/07/25 08:14 Dose: 5 mg Diazepam (Diazepam 10 Mg/2 Ml Cartridge) 10 mg IM BID PRN PRN Reason: if refuses Po,hold ifsedation Last Admin: 01/06/25 22:09 Dose: 10 mg Finasteride (Finasteride 5 Mg Tablet) 5 mg PO DAILY [facility] Last Admin: 01/07/25 08:14 Dose: 5 mg Fludrocortisone Acetate (Fludrocortisone Acetate 0.1 Mg Tablet) 0.2 mg PO DAILY [facility] Last Admin: 01/07/25 08:15 Dose: 0.2 mg Hydrocortisone (Hydrocortisone 1 % Ointment 28.35 Gm Tube) 1 appl TOPICAL BID [facility]; Protocol Last Admin: 01/07/25 08:14 Dose: Not Given Magnesium Hydroxide (Milk Of Magnesia 30 Ml Oral.Susp) 30 ml PO DAILY PRN PRN Reason: Constipation Midodrine (Midodrine Hcl 10 Mg Tablet) 10 mg PO TIDWM [facility] Last Admin: 01/07/25 12:01 Dose: Not Given Morphine Sulfate (Morphine Sulfate Oral Reina 10 Mg/5 Ml Solution) 2.5 mg PO Q4H PRN PRN Reason: Pain, Moderate(Pain Scale 4-6) Last Admin: 01/05/25 01:40 Dose: 2.5 mg Olanzapine (Olanzapine 10 Mg Vial) 5 mg IM BID PRN PRN Reason: if refuses oral olanzapine Last Admin: 01/06/25 22:08 Dose: 5 mg Olanzapine (Olanzapine Odt 10 Mg Tab.Rapdis) 10 mg TRANSLINGU Q6H PRN PRN Reason: agitation Last Admin: 01/05/25 17:45 Dose: 10 mg Olanzapine (Olanzapine 5 Mg Tablet) 5 mg PO TID [facility] Last Admin: 01/07/25 08:14 Dose: 5 mg Senna (Sennosides 8.6 Mg Tablet) 8.6 mg PO Q12H PRN PRN Reason: Constipation Sodium Biphosphate/Sodium Phosphate (Sodium Phosphate,[place]-Dibasic 133 Ml Enema) 118 ml [place] DAILY PRN PRN Reason: Constipation Tamsulosin HCl (Tamsulosin Hcl 0.4 Mg Capsule) 0.4 mg PO DAILY [facility] Last Admin: 01/07/25 08:14 Dose: 0.4 mg Trazodone HCl (Trazodone Hcl 50 Mg Tablet) 50 mg PO BEDTIME PRN PRN Reason: Insomnia Last Admin: 01/04/25 02:53 Dose: 50 mg Trazodone HCl (Trazodone Hcl 100 Mg Tablet) 100 mg PO BEDTIME [facility] Last Admin: 01/06/25 22:09 Dose: Not Given Trimethoprim/Sulfamethoxazole (Sulfamethox/Trimeth 800/160 Tablet) 1 tab PO Q12H [facility] Last Admin: 01/07/25 06:34 Dose: Not Given Allergies Allergies Allergy/AdvReac Type Severity Reaction Status Date / Time No Known Allergies Allergy Verified 11/30/24 02:25 Assessment & Plan Assessment & Plan (1) Major neurocognitive disorder due to multiple etiologies, with psychotic disturbance: Status: Acute Code(s): F02.82 - Dementia in other diseases classified elsewhere, unspecified severity, with psychotic disturbance (2) Fall: Status: Acute Code(s): W19.XXXA - Unspecified fall, initial encounter (3) Hypotension: Status: Acute Code(s): I95.9 - Hypotension, unspecified Plan Mr. Quintero is a 79 year-old male with hx of neurocognitive disorder. 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 12/30 continues to present as agitated, not taking medications, one to one due to fall risk. 01/02 continue tx 01/03 increase valium to 5mg po TID. 01/04 continue tx. 01/05 continue tx. 01/06 continue tx. declines most oral medications. 01/07: Continue current regimen and plans Reason for continued inpatient stay Substantial Risk for: inability to function Time Spent With Patient Time: Total time managing care of this patient today ____ minutes.
[2025-01-07] MEDS: Morphine Sulfate Oral Sol 10 MG/5 ML SOLUTION 2.5 MG PO (18:02)
[2025-01-07] MEDS: OLANZapine 10 MG VIAL 5 MG IM (22:21)
[2025-01-07] MEDS: diazePAM 10 MG/2 ML CARTRIDGE IM (22:21)
[2025-01-08] MEDS: Morphine Sulfate Oral Sol 10 MG/5 ML SOLUTION 2.5 MG PO (01:41)
[2025-01-08 09:03] VITALS: BP 112/56; PULSE 76; RESP 16; TEMP 36.7; O2SAT 94
[2025-01-08] MEDS: OLANZapine 10 MG VIAL 5 MG IM ×2 (10:54→20:56)
[2025-01-08] MEDS: diazePAM 10 MG/2 ML CARTRIDGE IM ×2 (10:55→20:59)
--- NOTE | 2025-01-08 12:11 | HO.PSYCHPN ---
Subjective Subjective Date of Service: 01/08/25 Reason For Visit: agitation Subjective Notes: Conditional Voluntary Interim History: Patient was seen and discussed in rounds today. Records and plans were reviewed. He continues to be mostly in his room, on his bed. He is confused. Yesterday he refused his medications and IM backup were administered. Today he is irritable and hard to engage. No dangerous behaviors. No changes were made today Review of Systems Review of Systems Yes Unobtainable due to mental status Mental Status Exam Mental Status Exam Narrative: In today's visit he was laying in bed but acknowledge my presence. He is irritable and states that he feels terrible. He asked how I was doing and was glad that I am doing okay!. Cognitively he is impaired. Judgment is impaired. Diagnostics Vital Signs (24Hr): Vital Signs - 24 hr 01/08/25 09:03 Temperature 98.1 F Pulse Rate 76 Respiratory Rate 16 Blood Pressure 112/56 L Pulse Oximetry 94 BMI result Body Mass Index 20.1 Labs 01/03/25 08:10 12/21/24 15:02 Imaging Radiology Impressions: ITS Impressions Clavicle X-Ray 11/30/24 08:08 IMPRESSION: Inferiorly displaced fracture distal right clavicle, probable old. Degenerative changes, right shoulder. Consider calcific tendinosis/tendinopathy, supraspinatus. Electronically signed by: Raghav Porras MD 11/30/2024 09:[address] 12/06/24 10:46 IMPRESSION: Continued evolution of a right frontoparietal subdural hematoma measuring up to 6 mm in thickness with mild mass effect. No intracranial hemorrhage or other acute intracranial abnormality. Electronically signed by: Miguel Ness MD 12/06/2024 11:23 AM EDT RP Elbow X-Ray 12/07/24 09:11 IMPRESSION: No evidence of fracture of the right elbow. Electronically signed by: Blayne Avila MD 12/07/2024 09:43 AM EDT RP Elbow X-Ray 12/07/24 09:13 IMPRESSION: No evidence of fracture of the left elbow. Electronically signed by: Blayne Avila MD 12/07/2024 09:44 AM EDT RP Humerus X-Ray 12/07/24 14:02 IMPRESSION: No acute fracture, left humerus. No change Electronically signed by: Raghav Porras MD 12/07/2024 02:14 PM EDT RP Medications Medications Current Medications Acetaminophen (Acetaminophen 325 Mg Tablet) 650 mg PO Q6H PRN PRN Reason: Headache/Pain, Scale 1-10 Last Admin: 12/11/24 20:19 Dose: 650 mg Al Hydroxide/Mg Hydroxide (Magnesium Hydrox/Alum Hydrox 30 Ml Oral.Susp) 30 ml PO Q6H PRN PRN Reason: Heartburn/Nausea Bisacodyl (Bisacodyl 10 Mg Supp.Rect) 10 mg [place] DAILY PRN PRN Reason: Constipation Last Admin: 12/08/24 16:44 Dose: 10 mg Diazepam (Diazepam 5 Mg Tablet) 5 mg PO TID [facility] Last Admin: 01/08/25 10:35 Dose: 5 mg Diazepam (Diazepam 10 Mg/2 Ml Cartridge) 10 mg IM BID PRN PRN Reason: if refuses Po,hold ifsedation Last Admin: 01/08/25 10:55 Dose: 10 mg Finasteride (Finasteride 5 Mg Tablet) 5 mg PO DAILY [facility] Last Admin: 01/08/25 10:34 Dose: 5 mg Fludrocortisone Acetate (Fludrocortisone Acetate 0.1 Mg Tablet) 0.2 mg PO DAILY [facility] Last Admin: 01/08/25 10:34 Dose: 0.2 mg Hydrocortisone (Hydrocortisone 1 % Ointment 28.35 Gm Tube) 1 appl TOPICAL BID [facility]; Protocol Last Admin: 01/08/25 10:35 Dose: Not Given Magnesium Hydroxide (Milk Of Magnesia 30 Ml Oral.Susp) 30 ml PO DAILY PRN PRN Reason: Constipation Midodrine (Midodrine Hcl 10 Mg Tablet) 10 mg PO TIDWM [facility] Last Admin: 01/08/25 10:34 Dose: 10 mg Olanzapine (Olanzapine 10 Mg Vial) 5 mg IM BID PRN PRN Reason: if refuses oral olanzapine Last Admin: 01/08/25 10:54 Dose: 5 mg Olanzapine (Olanzapine Odt 10 Mg Tab.Rapdis) 10 mg TRANSLINGU Q6H PRN PRN Reason: agitation Last Admin: 01/05/25 17:45 Dose: 10 mg Olanzapine (Olanzapine 5 Mg Tablet) 5 mg PO TID [facility] Last Admin: 01/08/25 10:34 Dose: 5 mg Senna (Sennosides 8.6 Mg Tablet) 8.6 mg PO Q12H PRN PRN Reason: Constipation Sodium Biphosphate/Sodium Phosphate (Sodium Phosphate,[place]-Dibasic 133 Ml Enema) 118 ml [place] DAILY PRN PRN Reason: Constipation Tamsulosin HCl (Tamsulosin Hcl 0.4 Mg Capsule) 0.4 mg PO DAILY [facility] Last Admin: 01/08/25 10:34 Dose: 0.4 mg Trazodone HCl (Trazodone Hcl 50 Mg Tablet) 50 mg PO BEDTIME PRN PRN Reason: Insomnia Last Admin: 01/04/25 02:53 Dose: 50 mg Trazodone HCl (Trazodone Hcl 100 Mg Tablet) 100 mg PO BEDTIME [facility] Last Admin: 01/07/25 22:16 Dose: Not Given Trimethoprim/Sulfamethoxazole (Sulfamethox/Trimeth 800/160 Tablet) 1 tab PO Q12H [facility] Last Admin: 01/08/25 10:35 Dose: 1 tab Allergies Allergies Allergy/AdvReac Type Severity Reaction Status Date / Time No Known Allergies Allergy Verified 11/30/24 02:25 Assessment & Plan Assessment & Plan (1) Major neurocognitive disorder due to multiple etiologies, with psychotic disturbance: Status: Acute Code(s): F02.82 - Dementia in other diseases classified elsewhere, unspecified severity, with psychotic disturbance (2) Fall: Status: Acute Code(s): W19.XXXA - Unspecified fall, initial encounter (3) Hypotension: Status: Acute Code(s): I95.9 - Hypotension, unspecified Plan Mr. Quintero is a 79 year-old male with hx of neurocognitive disorder. 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 12/30 continues to present as agitated, not taking medications, one to one due to fall risk. 01/02 continue tx 01/03 increase valium to 5mg po TID. 01/04 continue tx. 01/05 continue tx. 01/06 continue tx. declines most oral medications. 01/07: Continue current regimen and plans 01/08: Continue current regimen and plans Reason for continued inpatient stay Substantial Risk for: inability to function Time Spent With Patient Time: Total time managing care of this patient today ____ minutes.
--- NOTE | 2025-01-08 17:04 | PC.NURSE ---
Patient refused PO meds this shift. IM back up administered. Refused Vitals prior to Midodrine administration. Medication held.
[2025-01-09] MEDS: Morphine Sulfate Oral Sol 10 MG/5 ML SOLUTION 2.5 MG PO ×2 (08:18→19:01)
--- NOTE | 2025-01-09 10:03 | P.PNPSI_ITS ---
Subjective Subjective Date of Service: 01/09/25 Reason For Visit: agitation Subjective Notes: Conditional Voluntary Interim History: Patient was seen and discussed in rounds today. Records and plans were reviewed. He is quite isolative, confused and delusional. Comfort meds available. No behavioral issues. No changes were made today Review of Systems Review of Systems Yes Unobtainable due to mental status Mental Status Exam Mental Status Exam Narrative: In today's visit he was laying in bed but acknowledge my presence. He is irritable and states that he feels terrible. He asked how I was doing and was glad that I am doing okay!. Cognitively he is impaired. Judgment is impaired. Diagnostics Vital Signs (24Hr): BMI result Body Mass Index 20.1 Labs 01/03/25 08:10 12/21/24 15:02 Imaging Radiology Impressions: ITS Impressions Clavicle X-Ray 11/30/24 08:08 IMPRESSION: Inferiorly displaced fracture distal right clavicle, probable old. Degenerative changes, right shoulder. Consider calcific tendinosis/tendinopathy, supraspinatus. Electronically signed by: Raghav Porras MD 11/30/2024 09:28 AM EDT RP Head CT 12/06/24 10:46 IMPRESSION: Continued evolution of a right frontoparietal subdural hematoma measuring up to 6 mm in thickness with mild mass effect. No intracranial hemorrhage or other acute intracranial abnormality. Electronically signed by: Miguel Ness MD 12/06/2024 11:23 AM EDT RP Elbow X-Ray 12/07/24 09:11 IMPRESSION: No evidence of fracture of the right elbow. Electronically signed by: Blayne Avila MD 12/07/2024 09:43 AM EDT RP Elbow X-Ray 12/07/24 09:13 IMPRESSION: No evidence of fracture of the left elbow. Electronically signed by: Blayne Avila MD 12/07/2024 09:44 AM EDT RP Humerus X-Ray 12/07/24 14:02 IMPRESSION: No acute fracture, left humerus. No change Electronically signed by: Raghav Porras MD 12/07/2024 02:14 PM EDT RP Medications Medications Current Medications Acetaminophen (Acetaminophen 325 Mg Tablet) 650 mg PO Q6H PRN PRN Reason: Headache/Pain, Scale 1-10 Last Admin: 12/11/24 20:19 Dose: 650 mg Al Hydroxide/Mg Hydroxide (Magnesium Hydrox/Alum Hydrox 30 Ml Oral.Susp) 30 ml PO Q6H PRN PRN Reason: Heartburn/Nausea Bisacodyl (Bisacodyl 10 Mg Supp.Rect) 10 mg [place] DAILY PRN PRN Reason: Constipation Last Admin: 12/08/24 16:44 Dose: 10 mg Diazepam (Diazepam 5 Mg Tablet) 5 mg PO TID [facility] Last Admin: 01/08/25 20:46 Dose: Not Given Diazepam (Diazepam 10 Mg/2 Ml Cartridge) 10 mg IM BID PRN PRN Reason: if refuses Po,hold ifsedation Last Admin: 01/08/25 20:59 Dose: 10 mg Finasteride (Finasteride 5 Mg Tablet) 5 mg PO DAILY [facility] Last Admin: 01/08/25 12:36 Dose: Not Given Fludrocortisone Acetate (Fludrocortisone Acetate 0.1 Mg Tablet) 0.2 mg PO DAILY [facility] Last Admin: 01/08/25 12:35 Dose: Not Given Hydrocortisone (Hydrocortisone 1 % Ointment 28.35 Gm Tube) 1 appl TOPICAL BID [facility]; Protocol Last Admin: 01/08/25 20:46 Dose: Not Given Magnesium Hydroxide (Milk Of Magnesia 30 Ml Oral.Susp) 30 ml PO DAILY PRN PRN Reason: Constipation Midodrine (Midodrine Hcl 10 Mg Tablet) 10 mg PO TIDWM [facility] Last Admin: 01/08/25 16:53 Dose: Not Given Morphine Sulfate (Morphine Sulfate Oral Reina 10 Mg/5 Ml Solution) 2.5 mg PO Q4H PRN PRN Reason: Pain, Severe (Pain Scale 7-10) Last Admin: 01/09/25 08:18 Dose: 2.5 mg Olanzapine (Olanzapine 10 Mg Vial) 5 mg IM BID PRN PRN Reason: if refuses oral olanzapine Last Admin: 01/08/25 20:56 Dose: 5 mg Olanzapine (Olanzapine Odt 10 Mg Tab.Rapdis) 10 mg TRANSLINGU Q6H PRN PRN Reason: agitation Last Admin: 01/05/25 17:45 Dose: 10 mg Olanzapine (Olanzapine 5 Mg Tablet) 5 mg PO TID [facility] Last Admin: 01/08/25 20:46 Dose: Not Given Senna (Sennosides 8.6 Mg Tablet) 8.6 mg PO Q12H PRN PRN Reason: Constipation Sodium Biphosphate/Sodium Phosphate (Sodium Phosphate,[place]-Dibasic 133 Ml Enema) 118 ml [place] DAILY PRN PRN Reason: Constipation Tamsulosin HCl (Tamsulosin Hcl 0.4 Mg Capsule) 0.4 mg PO DAILY [facility] Last Admin: 01/08/25 10:34 Dose: 0.4 mg Trazodone HCl (Trazodone Hcl 50 Mg Tablet) 50 mg PO BEDTIME PRN PRN Reason: Insomnia Last Admin: 01/04/25 02:53 Dose: 50 mg Trazodone HCl (Trazodone Hcl 100 Mg Tablet) 100 mg PO BEDTIME [facility] Last Admin: 01/08/25 20:46 Dose: Not Given Trimethoprim/Sulfamethoxazole (Sulfamethox/Trimeth 800/160 Tablet) 1 tab PO Q12H [facility] Last Admin: 01/08/25 17:07 Dose: Not Given Allergies Allergies Allergy/AdvReac Type Severity Reaction Status Date / Time No Known Allergies Allergy Verified 11/30/24 02:25 Assessment & Plan Assessment & Plan (1) Major neurocognitive disorder due to multiple etiologies, with psychotic disturbance: Status: Acute Code(s): F02.82 - Dementia in other diseases classified elsewhere, unspecified severity, with psychotic disturbance (2) Fall: Status: Acute Code(s): W19.XXXA - Unspecified fall, initial encounter (3) Hypotension: Status: Acute Code(s): I95.9 - Hypotension, unspecified Plan Mr. Quintero is a 79 year-old male with hx of neurocognitive disorder. 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 12/30 continues to present as agitated, not taking medications, one to one due to fall risk. 01/02 continue tx 01/03 increase valium to 5mg po TID. 01/04 continue tx. 01/05 continue tx. 01/06 continue tx. declines most oral medications. 01/07: Continue current regimen and plans 01/08: Continue current regimen and plans 01/09: Continue current regimen and plans. Reason for continued inpatient stay Substantial Risk for: inability to function Time Spent With Patient Time: Total time managing care of this patient today ____ minutes.
[2025-01-09] MEDS: OLANZapine 10 MG VIAL 5 MG IM (10:20)
[2025-01-09] MEDS: diazePAM 10 MG/2 ML CARTRIDGE IM (10:22)
[2025-01-10] MEDS: Morphine Sulfate Oral Sol 10 MG/5 ML SOLUTION 2.5 MG PO ×3 (08:16→17:33)
--- NOTE | 2025-01-10 08:35 | P.PNPSI_ITS ---
Subjective Subjective Date of Service: 01/10/25 Reason For Visit: agitation Subjective Notes: Conditional Voluntary Healthcare Proxy: Yes Interim History: Pt seems in more pain, spine XR shows possible L2 fracture. notified hospitalist. in bed, combative at times. not taking medications consistently. Medication Compliance: Yes Review of Systems Review of Systems Limited due to patient's cognition. 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 Diagnostics Vital Signs (24Hr): BMI result Body Mass Index 20.1 Labs 01/03/25 08:10 12/21/24 15:02 Imaging Radiology Impressions: ITS Impressions Clavicle X-Ray 11/30/24 08:08 IMPRESSION: Inferiorly displaced fracture distal right clavicle, probable old. Degenerative changes, right shoulder. Consider calcific tendinosis/tendinopathy, supraspinatus. Electronically signed by: Raghav Porras MD 11/30/2024 09:28 AM EDT RP Head CT 12/06/24 10:46 IMPRESSION: Continued evolution of a right frontoparietal subdural hematoma measuring up to 6 mm in thickness with mild mass effect. No intracranial hemorrhage or other acute intracranial abnormality. Electronically signed by: Miguel Ness MD 12/06/2024 11:23 AM EDT RP Elbow X-Ray 12/07/24 09:11 IMPRESSION: No evidence of fracture of the right elbow. Electronically signed by: Blayne Avila MD 12/07/2024 09:43 AM EDT RP Elbow X-Ray 12/07/24 09:13 IMPRESSION: No evidence of fracture of the left elbow. Electronically signed by: Blayne Avila MD 12/07/2024 09:44 AM EDT RP Humerus X-Ray 12/07/24 14:02 IMPRESSION: No acute fracture, left humerus. No change Electronically signed by: Raghav Porras MD 12/07/2024 02:14 PM EDT RP Medications Medications Current Medications Acetaminophen (Acetaminophen 325 Mg Tablet) 650 mg PO Q6H PRN PRN Reason: Headache/Pain, Scale 1-10 Last Admin: 12/11/24 20:19 Dose: 650 mg Al Hydroxide/Mg Hydroxide (Magnesium Hydrox/Alum Hydrox 30 Ml Oral.Susp) 30 ml PO Q6H PRN PRN Reason: Heartburn/Nausea Bisacodyl (Bisacodyl 10 Mg Supp.Rect) [address] DAILY PRN PRN Reason: Constipation Last Admin: 12/08/24 16:44 Dose: 10 mg Diazepam (Diazepam 5 Mg Tablet) 5 mg PO TID [facility] Last Admin: 01/09/25 21:40 Dose: 5 mg Diazepam (Diazepam 10 Mg/2 Ml Cartridge) 10 mg IM BID PRN PRN Reason: if refuses Po,hold ifsedation Last Admin: 01/09/25 10:22 Dose: 10 mg Finasteride (Finasteride 5 Mg Tablet) 5 mg PO DAILY [facility] Last Admin: 01/09/25 10:18 Dose: Not Given Fludrocortisone Acetate (Fludrocortisone Acetate 0.1 Mg Tablet) 0.2 mg PO DAILY [facility] Last Admin: 01/09/25 10:18 Dose: Not Given Hydrocortisone (Hydrocortisone 1 % Ointment 28.35 Gm Tube) 1 appl TOPICAL BID [facility]; Protocol Last Admin: 01/09/25 21:40 Dose: Not Given Magnesium Hydroxide (Milk Of Magnesia 30 Ml Oral.Susp) 30 ml PO DAILY PRN PRN Reason: Constipation Midodrine (Midodrine Hcl 10 Mg Tablet) 10 mg PO TIDWM [facility] Last Admin: 01/09/25 18:05 Dose: Not Given Morphine Sulfate (Morphine Sulfate Oral Reina 10 Mg/5 Ml Solution) 2.5 mg PO Q4H PRN PRN Reason: Pain, Severe (Pain Scale 7-10) Last Admin: 01/10/25 08:16 Dose: 2.5 mg Olanzapine (Olanzapine 10 Mg Vial) 5 mg IM BID PRN PRN Reason: if refuses oral olanzapine Last Admin: 01/09/25 10:20 Dose: 5 mg Olanzapine (Olanzapine Odt 10 Mg Tab.Rapdis) 10 mg TRANSLINGU Q6H PRN PRN Reason: agitation Last Admin: 01/05/25 17:45 Dose: 10 mg Olanzapine (Olanzapine 5 Mg Tablet) 5 mg PO TID [facility] Last Admin: 01/09/25 21:40 Dose: 5 mg Senna (Sennosides 8.6 Mg Tablet) 8.6 mg PO Q12H PRN PRN Reason: Constipation Last Admin: 01/09/25 21:40 Dose: 8.6 mg Sodium Biphosphate/Sodium Phosphate (Sodium Phosphate,[place]-Dibasic 133 Ml Enema) [address] DAILY PRN PRN Reason: Constipation Tamsulosin HCl (Tamsulosin Hcl 0.4 Mg Capsule) 0.4 mg PO DAILY [facility] Last Admin: 01/09/25 10:19 Dose: Not Given Trazodone HCl (Trazodone Hcl 50 Mg Tablet) 50 mg PO BEDTIME PRN PRN Reason: Insomnia Last Admin: 01/04/25 02:53 Dose: 50 mg Trazodone HCl (Trazodone Hcl 100 Mg Tablet) 100 mg PO BEDTIME [facility] Last Admin: 01/09/25 21:40 Dose: 100 mg Trimethoprim/Sulfamethoxazole (Sulfamethox/Trimeth 800/160 Tablet) 1 tab PO Q12H [facility] Last Admin: 01/10/25 06:01 Dose: Not Given Allergies Allergies Allergy/AdvReac Type Severity Reaction Status Date / Time No Known Allergies Allergy Verified 11/30/24 02:25 Assessment & Plan Assessment & Plan (1) Major neurocognitive disorder due to multiple etiologies, with psychotic disturbance: Status: Acute Code(s): F02.82 - Dementia in other diseases classified elsewhere, unspecified severity, with psychotic disturbance (2) Fall: Status: Acute Code(s): W19.XXXA - Unspecified fall, initial encounter (3) Hypotension: Status: Acute Code(s): I95.9 - Hypotension, unspecified Plan Mr. Quintero is a 79 year-old male with hx of neurocognitive disorder. 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 12/30 continues to present as agitated, not taking medications, one to one due to fall risk. 01/02 continue tx 01/03 increase valium to 5mg po TID. 01/04 continue tx. 01/05 continue tx. 01/06 continue tx. declines most oral medications. 01/07: Continue current regimen and plans 01/08: Continue current regimen and plans 01/09: Continue current regimen and plans. 01/10 possible L2 fracture, hospitalist following, increase oxycodone. Reason for continued inpatient stay Substantial Risk for: inability to function Time Spent With Patient Time: Total time managing care of this patient today ____ minutes.
--- NOTE | 2025-01-10 10:59 | P.PNIM_ITS ---
Subjective Subjective Date of Service: 01/10/25 Interval History: Patient was seen for reports of increased pain, he has had several falls. Recent abdominal CT revealed Possible nondisplaced L2 left transverse process fracture. Will order x-ray to further define. His blood pressure has been stable. No pain with palpation of spine. He denies any pain. His mental status waxes and wanes, he is combative with care, and refuses medications on occasion. On exam he is resting in bed with no apparent evidence of distress. Review of Systems Limited due to cognition Physical Exam 2 Exam: Exam: CONST: Alert and confused, in NAD. Thin. Sleeping easily arousable HEENT: Normocephalic, atraumatic, dry mucous membranes RESP: Lungs clear, RRR even and regular HEART:,RRR, S1, S2. No edema GI:Abdomen Soft NT, ND. + BS times four :Deferred SKIN: Warm dry and intact, skin tears to bilateral arms, scattered bruising NEURO: Moves all extremities without evidence of pain or injury PSYCH: Sleepy Vital Signs: Vital Signs: Last Vital Signs Temp 98.1 F 01/08/25 09:03 Pulse 76 01/08/25 09:03 Resp 16 01/08/25 09:03 BP 112/56 L 01/08/25 09:03 Pulse Ox 94 01/08/25 09:03 O2 Del Method Room Air 01/01/25 20:00 BMI result Body Mass Index 20.1 Objective Data Active Medications Acetaminophen (Acetaminophen 325 Mg Tablet) 650 mg PO Q6H PRN PRN Reason: Headache/Pain, Scale 1-10 Last Admin: 12/11/24 20:19 Dose: 650 mg Documented By: REBECA Al Hydroxide/Mg Hydroxide (Magnesium Hydrox/Alum Hydrox 30 Ml Oral.Susp) 30 ml PO Q6H PRN PRN Reason: Heartburn/Nausea Bisacodyl (Bisacodyl 10 Mg Supp.Rect) 10 mg [place] DAILY PRN PRN Reason: Constipation Last Admin: 12/08/24 16:44 Dose: 10 mg Documented By: FREDDY Diazepam (Diazepam 5 Mg Tablet) 5 mg PO TID ENDY Last Admin: 01/10/25 08:39 Dose: Not Given Documented By: JILLIAN Non-Admin Reason: Patient Refused Diazepam (Diazepam 10 Mg/2 Ml Cartridge) 10 mg IM BID PRN PRN Reason: if refuses Po,hold ifsedation Last Admin: 01/09/25 10:22 Dose: 10 mg Documented By: JILLIAN Finasteride (Finasteride 5 Mg Tablet) 5 mg PO DAILY [facility] Last Admin: 01/10/25 08:39 Dose: Not Given Documented By: JILLIAN Non-Admin Reason: Patient Refused Fludrocortisone Acetate (Fludrocortisone Acetate 0.1 Mg Tablet) 0.2 mg PO DAILY [facility] Last Admin: 01/10/25 08:39 Dose: Not Given Documented By: JILLIAN Non-Admin Reason: Patient Refused Hydrocortisone (Hydrocortisone 1 % Ointment 28.35 Gm Tube) 1 appl TOPICAL BID [facility]; Protocol Last Admin: 01/10/25 08:40 Dose: Not Given Documented By: JILLIAN Non-Admin Reason: Patient Refused Magnesium Hydroxide (Milk Of Magnesia 30 Ml Oral.Susp) 30 ml PO DAILY PRN PRN Reason: Constipation Midodrine (Midodrine Hcl 10 Mg Tablet) 10 mg PO TIDWM [facility] Last Admin: 01/10/25 08:38 Dose: Not Given Documented By: JILLIAN Non-Admin Reason: Patient Refused Morphine Sulfate (Morphine Sulfate Oral Reina 10 Mg/5 Ml Solution) 2.5 mg PO Q4H PRN PRN Reason: Pain, Severe (Pain Scale 7-10) Last Admin: 01/10/25 08:16 Dose: 2.5 mg Documented By: JILLIAN Olanzapine (Olanzapine 10 Mg Vial) 5 mg IM BID PRN PRN Reason: if refuses oral olanzapine Last Admin: 01/09/25 10:20 Dose: 5 mg Documented By: JILLIAN Olanzapine (Olanzapine Odt 10 Mg Tab.Rapdis) 10 mg TRANSLINGU Q6H PRN PRN Reason: agitation Last Admin: 01/05/25 17:45 Dose: 10 mg Documented By: ROSA Olanzapine (Olanzapine 5 Mg Tablet) 5 mg PO TID [facility] Last Admin: 01/10/25 08:40 Dose: Not Given Documented By: JILLINA Non-Admin Reason: Patient Refused Senna (Sennosides 8.6 Mg Tablet) 8.6 mg PO Q12H PRN PRN Reason: Constipation Last Admin: 01/09/25 21:40 Dose: 8.6 mg Documented By: REBECA Sodium Biphosphate/Sodium Phosphate (Sodium Phosphate,[place]-Dibasic 133 Ml Enema) 118 ml [place] DAILY PRN PRN Reason: Constipation Tamsulosin HCl (Tamsulosin Hcl 0.4 Mg Capsule) 0.4 mg PO DAILY [facility] Last Admin: 01/10/25 08:40 Dose: Not Given Documented By: JILLIAN Non-Admin Reason: Patient Refused Trazodone HCl (Trazodone Hcl 50 Mg Tablet) 50 mg PO BEDTIME PRN PRN Reason: Insomnia Last Admin: 01/04/25 02:53 Dose: 50 mg Documented By: REBECA Trazodone HCl (Trazodone Hcl 100 Mg Tablet) 100 mg PO BEDTIME [facility] Last Admin: 01/09/25 21:40 Dose: 100 mg Documented By: REBECA Trimethoprim/Sulfamethoxazole (Sulfamethox/Trimeth 800/160 Tablet) 1 tab PO Q12H [facility] Last Admin: 01/10/25 06:01 Dose: Not Given Documented By: REBECA Non-Admin Reason: Patient Refused Labs 01/03/25 08:10 12/21/24 15:02 Assessment and Plan (1) Hypotension: Status: Acute (2) Dementia: Status: Acute Plan 79 year old male with vascular dementia, BPH, hypotension, acute on chronic subdural hematoma, GERD admitted to [facility] for further treatment of Dementia with behavioral disturbances. Vascular dementia/Aggression. Treatment per psych team. Patient intermittently accepts oral medications and food and fluids. Reviewed most with family, family does not wish to have any further workups including labs, imaging, testing. They do not desire feeding tube, intravenous fluids, dialysis, resuscitative measures. Family wishes comfort measures only, low-dose morphine added for comfort. MOLST updated. He continues on Valium SW working with family for appropriate DC planning. Patient will be referred to long-term care when barriers are addressed. Barriers to discharge include ongoing behavioral disturbances, non medication compliance, 1-1 and financial barriers. History of falls CT head and cervical spine without any injuries On exam no obvious injury, patient has full range of motion with no evidence of pain or discomfort CT demonstrates questionable transverse fracture to L2. No palpable tenderness. X-ray ordered for further definition, patient refused this. BPH/Urinary retention Patient has been voiding at times, still requiring intermittent catheterizing Continue Finesteride and Flomax, patient has been refusing Will need outpatient urology follow up. Bladder scan Q 6 hours and SC greater than 350 ccs Would not recommend any further urine cultures unless there are clear signs and symptoms that localized to the urinary tract Avoid treating asymptomatic bacteriuria Acute on Chronic subdural hematoma CT scans of the head consistent with old subdural hematoma. Recent CT demonstrates no change status post fall Hypotension Continue Midodrine TID, and Florinef 0.2 mgs daily. Frequently refuses Anurag stockings Despite midodrine, BP's consistently low. Refused ECHO, Random cortisol level within normal limits Nephrology following GERD Continue PPI- Has been refusing Thank you for allowing me to participate in the care of this patient. Will follow as needed, please notify medical provider if any acute concerns or issues arise. Quality Stroke Does the patient have a stroke diagnosis?: No VTE Prior VTE?: No VTE Risk Level:: Medical - low VTE Device Contraindication: Treatment Not Indicated VTE Drug Contraindication: Treatment Not Indicated
--- NOTE | 2025-01-10 15:36 | HO.HCP ---
Health Care Proxy Invocation Health Care Proxy Declaration: Francis, Damaris Ureña , on the date cited below, have determined that, Eren Quintero , lacks the capacity to make or communicate, informed health care decision. This determination is made in accordance with accepted standards of medical judgment and pursuant to [place] 201[place], the [place] Health Care Proxy Law. The cause, nature, extent and probable duration of the patient's inapacity are described below: Cause: Dementia Nature: Major neurocognitve disorder d/t multiple etiologies, with psychotic disturbances which affecting abillity to make decision Extent: complete Probable Duration of Patient's Incapacity: Indefinite- not expected to be regained
[2025-01-11] MEDS: Morphine Sulfate Oral Sol 10 MG/5 ML SOLUTION 2.5 MG PO ×2 (00:15→12:28)
[2025-01-11] MEDS: OLANZapine ODT 10 MG TAB.RAPDIS TRANSLINGU (01:36)
--- NOTE | 2025-01-11 09:18 | P.PNPSI_ITS ---
Subjective Subjective Date of Service: 01/11/25 Reason For Visit: agitation Subjective Notes: Conditional Voluntary Healthcare Proxy: Yes Interim History: Patient found lying in bed with sitter at bedside. No behavioral issues according to sitter. He is calm and answers yes or no. Minimal speech. Medication Compliance: Yes Side effects from medications: No Review of Systems Acute medical concerns: No Mental Status Exam Mental Status Exam Narrative: Appearance: Casually dressed, adequate hygiene Behavior: Calm and cooperative throughout the interview. Minimal eye contact, and there are no signs of psychomotor agitation or retardation Speech: Minimal Thought process: Not able to assess Thought content: Not able to assess Mood: Calm Affect: Mood-congruent SI: Not able to assess HI: Not able to assess VH/AH: Not able to assess Delusions: Not able to assess Insight/judgment: Impaired insight and judgment Memory/cog: Alert and oriented Diagnostics Vital Signs (24Hr): BMI result Body Mass Index 20.1 Labs 01/03/25 08:10 12/21/24 15:02 Imaging Radiology Impressions: ITS Impressions Clavicle X-Ray 11/30/24 08:08 IMPRESSION: Inferiorly displaced fracture distal right clavicle, probable old. Degenerative changes, right shoulder. Consider calcific tendinosis/tendinopathy, supraspinatus. Electronically signed by: Raghav Porras MD 11/30/2024 09:28 AM EDT RP Head CT 12/06/24 10:46 IMPRESSION: Continued evolution of a right frontoparietal subdural hematoma measuring up to 6 mm in thickness with mild mass effect. No intracranial hemorrhage or other acute intracranial abnormality. Electronically signed by: Miguel Ness MD 12/06/2024 11:23 AM EDT RP Elbow X-Ray 12/07/24 09:11 IMPRESSION: No evidence of fracture of the right elbow. Electronically signed by: Blayne Avila MD 12/07/2024 09:43 AM EDT RP Elbow X-Ray 12/07/24 09:13 IMPRESSION: No evidence of fracture of the left elbow. Electronically signed by: Blayne Avila MD 12/07/2024 09:44 AM EDT RP Humerus X-Ray 12/07/24 14:02 IMPRESSION: No acute fracture, left humerus. No change Electronically signed by: Raghav Porras MD 12/07/2024 02:14 PM EDT Medications Medications Current Medications Acetaminophen (Acetaminophen 325 Mg Tablet) 650 mg PO Q6H PRN PRN Reason: Headache/Pain, Scale 1-10 Last Admin: 12/11/24 20:19 Dose: 650 mg Al Hydroxide/Mg Hydroxide (Magnesium Hydrox/Alum Hydrox 30 Ml Oral.Susp) 30 ml PO Q6H PRN PRN Reason: Heartburn/Nausea Bisacodyl (Bisacodyl 10 Mg Supp.Rect) 10 mg [place] DAILY PRN PRN Reason: Constipation Last Admin: 12/08/24 16:44 Dose: 10 mg Diazepam (Diazepam 5 Mg Tablet) 5 mg PO TID [facility] Last Admin: 01/11/25 01:37 Dose: 5 mg Diazepam (Diazepam 10 Mg/2 Ml Cartridge) 10 mg IM BID PRN PRN Reason: if refuses Po,hold ifsedation Last Admin: 01/09/25 10:22 Dose: 10 mg Finasteride (Finasteride 5 Mg Tablet) 5 mg PO DAILY [facility] Last Admin: 01/10/25 08:39 Dose: Not Given Fludrocortisone Acetate (Fludrocortisone Acetate 0.1 Mg Tablet) 0.2 mg PO DAILY [facility] Last Admin: 01/10/25 08:39 Dose: Not Given Hydrocortisone (Hydrocortisone 1 % Ointment 28.35 Gm Tube) 1 appl TOPICAL BID [facility]; Protocol Last Admin: 01/10/25 21:08 Dose: Not Given Magnesium Hydroxide (Milk Of Magnesia 30 Ml Oral.Susp) 30 ml PO DAILY PRN PRN Reason: Constipation Midodrine (Midodrine Hcl 10 Mg Tablet) 10 mg PO TIDWM [facility] Last Admin: 01/10/25 17:48 Dose: Not Given Morphine Sulfate (Morphine Sulfate Oral Reina 10 Mg/5 Ml Solution) 2.5 mg PO Q4H PRN PRN Reason: Pain, Severe (Pain Scale 7-10) Last Admin: 01/11/25 00:15 Dose: 2.5 mg Olanzapine (Olanzapine 10 Mg Vial) 5 mg IM BID PRN PRN Reason: if refuses oral olanzapine Last Admin: 01/09/25 10:20 Dose: 5 mg Olanzapine (Olanzapine Odt 10 Mg Tab.Rapdis) 10 mg TRANSLINGU Q6H PRN PRN Reason: agitation Last Admin: 01/11/25 01:36 Dose: 10 mg Olanzapine (Olanzapine 5 Mg Tablet) 5 mg PO TID [facility] Last Admin: 01/10/25 21:08 Dose: Not Given Senna (Sennosides 8.6 Mg Tablet) 8.6 mg PO Q12H PRN PRN Reason: Constipation Last Admin: 01/11/25 01:37 Dose: 8.6 mg Sodium Biphosphate/Sodium Phosphate (Sodium Phosphate,[place]-Dibasic 133 Ml Enema) 118 ml [place] DAILY PRN PRN Reason: Constipation Tamsulosin HCl (Tamsulosin Hcl 0.4 Mg Capsule) 0.4 mg PO DAILY [facility] Last Admin: 01/10/25 08:40 Dose: Not Given Trazodone HCl (Trazodone Hcl 50 Mg Tablet) 50 mg PO BEDTIME PRN PRN Reason: Insomnia Last Admin: 01/04/25 02:53 Dose: 50 mg Trazodone HCl (Trazodone Hcl 100 Mg Tablet) 100 mg PO BEDTIME [facility] Last Admin: 01/11/25 01:37 Dose: 100 mg Trimethoprim/Sulfamethoxazole (Sulfamethox/Trimeth 800/160 Tablet) 1 tab PO Q12H [facility] Last Admin: 01/11/25 06:21 Dose: Not Given Allergies Allergies Allergy/AdvReac Type Severity Reaction Status Date / Time No Known Allergies Allergy Verified 11/30/24 02:25 Assessment & Plan Assessment & Plan (1) Hypotension: Status: Acute Code(s): I95.9 - Hypotension, unspecified (2) Dementia: Status: Acute Code(s): F03.90 - Unspecified dementia, unspecified severity, without behavioral disturbance, psychotic disturbance, mood disturbance, and anxiety Plan Mr. Quintero is a 79 year-old male with hx of neurocognitive disorder. 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 12/30 continues to present as agitated, not taking medications, one to one due to fall risk. 01/02 continue tx 01/03 increase valium to 5mg po TID. 01/04 continue tx. 01/05 continue tx. 01/06 continue tx. declines most oral medications. 01/07: Continue current regimen and plans 01/08: Continue current regimen and plans 01/09: Continue current regimen and plans. 01/10 possible L2 fracture, hospitalist following, increase oxycodone. 01/11: Continue current treatment regimen Patient educated on: therapeutic strategies Reason for continued inpatient stay Substantial Risk for: rapid decompensation Time Spent With Patient Time: Total time managing care of this patient today ____ minutes.
--- NOTE | 2025-01-11 12:37 | PC.NURSE ---
Pt accepted his oral morphine, appears to be comfortably sleep with equal and unlabored respirations.
--- NOTE | 2025-01-11 12:46 | PC.NURSE ---
Bladder scan showed 362mL urine retained. OK to straight cath per provider Meg.
[2025-01-12] MEDS: Morphine Sulfate Oral Sol 10 MG/5 ML SOLUTION 2.5 MG PO (08:40)
--- NOTE | 2025-01-12 09:25 | P.PNPSI_ITS ---
Subjective Subjective Date of Service: 01/12/25 Reason For Visit: agitation Subjective Notes: Conditional Voluntary Healthcare Proxy: Yes Interim History: Patient found in his bed sleeping with sitter at bedside. Unresponsive to verbal. Appears in no acute distress. According to nursing, he has been sleeping all day and has not been combative for couple of days. He has been sipping liquids and has not been eating the past few days. Also refusing p.o. meds. IM medication back up with refusing p.o. and hold for sedation. Also has not been keeping on Anurag stockings per nursing. Medication Compliance: Intermittent Side effects from medications: No Attending Groups: No Review of Systems Acute medical concerns: No Mental Status Exam Mental Status Exam Narrative: Appearance: Casually dressed, adequate hygiene Behavior: Asleep Speech: Notable to assess Thought process: Not able to assess Thought content: Not able to assess Mood: Unable to assess Affect: Unable to assess SI: Not able to assess HI: Not able to assess VH/AH: Not able to assess Delusions: Not able to assess Insight/judgment: Not able to assess Memory/cog: Not able to assess Diagnostics Vital Signs (24Hr): BMI result Body Mass Index 20.1 Labs 01/03/25 08:10 12/21/24 15:02 Imaging Radiology Impressions: ITS Impressions Clavicle X-Ray 11/30/24 08:08 IMPRESSION: Inferiorly displaced fracture distal right clavicle, probable old. Degenerative changes, right shoulder. Consider calcific tendinosis/tendinopathy, supraspinatus. Electronically signed by: Raghav Porras MD 11/30/2024 09:[address] 12/06/24 10:46 IMPRESSION: Continued evolution of a right frontoparietal subdural hematoma measuring up to 6 mm in thickness with mild mass effect. No intracranial hemorrhage or other acute intracranial abnormality. Electronically signed by: Miguel Ness MD 12/06/2024 11:23 AM EDT Elbow X-Ray 12/07/24 09:11 IMPRESSION: No evidence of fracture of the right elbow. Electronically signed by: Blayne Avila MD 12/07/2024 09:43 AM EDT Elbow X-Ray 12/07/24 09:13 IMPRESSION: No evidence of fracture of the left elbow. Electronically signed by: Blayne Avila MD 12/07/2024 09:44 AM EDT RP Humerus X-Ray 12/07/24 14:02 IMPRESSION: No acute fracture, left humerus. No change Electronically signed by: Raghav Porras MD 12/07/2024 02:14 PM EDT RP Medications Medications Current Medications Acetaminophen (Acetaminophen 325 Mg Tablet) 650 mg PO Q6H PRN PRN Reason: Headache/Pain, Scale 1-10 Last Admin: 12/11/24 20:19 Dose: 650 mg Al Hydroxide/Mg Hydroxide (Magnesium Hydrox/Alum Hydrox 30 Ml Oral.Susp) 30 ml PO Q6H PRN PRN Reason: Heartburn/Nausea Bisacodyl (Bisacodyl 10 Mg Supp.Rect) 10 mg [place] DAILY PRN PRN Reason: Constipation Last Admin: 12/08/24 16:44 Dose: 10 mg Diazepam (Diazepam 5 Mg Tablet) 5 mg PO TID [facility] Last Admin: 01/11/25 21:51 Dose: Not Given Diazepam (Diazepam 10 Mg/2 Ml Cartridge) 10 mg IM BID PRN PRN Reason: if refuses Po,hold ifsedation Last Admin: 01/09/25 10:22 Dose: 10 mg Finasteride (Finasteride 5 Mg Tablet) 5 mg PO DAILY [facility] Last Admin: 01/11/25 12:33 Dose: Not Given Fludrocortisone Acetate (Fludrocortisone Acetate 0.1 Mg Tablet) 0.2 mg PO DAILY [facility] Last Admin: 01/11/25 12:33 Dose: Not Given Hydrocortisone (Hydrocortisone 1 % Ointment 28.35 Gm Tube) 1 appl TOPICAL BID [facility]; Protocol Last Admin: 01/11/25 21:51 Dose: Not Given Magnesium Hydroxide (Milk Of Magnesia 30 Ml Oral.Susp) 30 ml PO DAILY PRN PRN Reason: Constipation Midodrine (Midodrine Hcl 10 Mg Tablet) 10 mg PO TIDWM [facility] Last Admin: 01/11/25 18:47 Dose: Not Given Morphine Sulfate (Morphine Sulfate Oral Reina 10 Mg/5 Ml Solution) 2.5 mg PO Q4H PRN PRN Reason: Pain, Severe (Pain Scale 7-10) Last Admin: 01/12/25 08:40 Dose: 2.5 mg Olanzapine (Olanzapine 10 Mg Vial) 5 mg IM BID PRN PRN Reason: if refuses oral olanzapine Last Admin: 01/09/25 10:20 Dose: 5 mg Olanzapine (Olanzapine Odt 10 Mg Tab.Rapdis) 10 mg TRANSLINGU Q6H PRN PRN Reason: agitation Last Admin: 01/11/25 01:36 Dose: 10 mg Olanzapine (Olanzapine 5 Mg Tablet) 5 mg PO TID [facility] Last Admin: 01/11/25 21:51 Dose: Not Given Senna (Sennosides 8.6 Mg Tablet) 8.6 mg PO Q12H PRN PRN Reason: Constipation Last Admin: 01/11/25 01:37 Dose: 8.6 mg Sodium Biphosphate/Sodium Phosphate (Sodium Phosphate,[place]-Dibasic 133 Ml Enema) 118 ml [place] DAILY PRN PRN Reason: Constipation Tamsulosin HCl (Tamsulosin Hcl 0.4 Mg Capsule) 0.4 mg PO DAILY [facility] Last Admin: 01/11/25 12:34 Dose: Not Given Trazodone HCl (Trazodone Hcl 50 Mg Tablet) 50 mg PO BEDTIME PRN PRN Reason: Insomnia Last Admin: 01/04/25 02:53 Dose: 50 mg Trazodone HCl (Trazodone Hcl 100 Mg Tablet) 100 mg PO BEDTIME [facility] Last Admin: 01/11/25 21:52 Dose: Not Given Trimethoprim/Sulfamethoxazole (Sulfamethox/Trimeth 800/160 Tablet) 1 tab PO Q12H [facility] Last Admin: 01/12/25 07:40 Dose: Not Given Allergies Allergies Allergy/AdvReac Type Severity Reaction Status Date / Time No Known Allergies Allergy Verified 11/30/24 02:25 Assessment & Plan Assessment & Plan (1) Hypotension: Status: Acute Code(s): I95.9 - Hypotension, unspecified (2) Dementia: Status: Acute Code(s): F03.90 - Unspecified dementia, unspecified severity, without behavioral disturbance, psychotic disturbance, mood disturbance, and anxiety Plan Mr. Quintero is a 79 year-old male with hx of neurocognitive disorder. He is currently RESIDENTIAL [employer]. 12/30 continues to present as agitated, not taking medications, one to one due to fall risk. 01/02 continue tx 01/03 increase valium to 5mg po TID. 01/04 continue tx. 01/05 continue tx. 01/06 continue tx. declines most oral medications. 01/07: Continue current regimen and plans 01/08: Continue current regimen and plans 01/09: Continue current regimen and plans. 01/10 possible L2 fracture, hospitalist following, increase oxycodone. 01/11: Continue current treatment regimen 01/12: Continue current treatment regimen. Anurag stockings discontinued. Safety checks changed to 5 minutes as patient has been sleeping most of the time. Midodrine discontinued as blood pressure evaluation was discontinued Reason for continued inpatient stay Substantial Risk for: rapid decompensation Time Spent With Patient Time: Total time managing care of this patient today ____ minutes.
[2025-01-12 10:09] VITALS: BMI 19.1
[2025-01-12] MEDS: Hydrocortisone 1 % Ointment 28.35 GM TUBE 1 APPL TOPICAL (14:51)
[2025-01-13] MEDS: Morphine Sulfate Oral Sol 10 MG/5 ML SOLUTION 2.5 MG PO ×2 (07:58→17:45)
--- NOTE | 2025-01-13 11:43 | MHC.CLN ---
F/U CONTINUES COMFORT MEASURES ONLY. POOR PO INTAKE MOST MEALS. RD AVAILABLE NEEDED.
--- NOTE | 2025-01-13 16:05 | P.PNPSI_ITS ---
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 He takes all AM medication this morning but here and there refused scheduled meds. Sleep well. Bladder scan twice in the evening and overnight last night. Ate 30% for lunch, about 600mg of fluid plus ensure. Out to the unit in common areas, spend some time in sensory room sitting in the couch reading. Engage in conversation. Report he feels tired but slept good. Report he ate yesterday but not sure if he would eat lunch. Report pain on right leg and right hand but not able to rate the pain. He eventually says my is the pain in the butt when asked if he has anyone visiting him today or the past couple of days. Report last BM was two days ago. Observed coughing a couple of times but putting the collar of T shirt to cover his mouth. Medication Compliance: Intermittent Side effects from medications: No (not able to assess ) Attending Groups: No (but out to sensory room, sitting in the couch readings ) Review of Systems Acute medical concerns: No Medical Review of Systems: unchanged Review of Systems Review of Systems Limited due to patient's cognition. 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 Wearing glasses. Behavior:calm, reading in Sensory room Speech: Notable to assess Thought process: Not able to assess Thought content: Not able to assess Mood: tired Affect: congruent SI: Not able to assess HI: Not able to assess VH/AH: Not able to assess Delusions: Not able to assess Insight/judgment: Not able to assess Memory/cog: Not able to assess Diagnostics Vital Signs (24Hr): BMI result Body Mass Index 19.1 Labs 01/03/25 08:10 12/21/24 15:02 Imaging Radiology Impressions: ITS Impressions Clavicle X-Ray 11/30/24 08:08 IMPRESSION: Inferiorly displaced fracture distal right clavicle, probable old. Degenerative changes, right shoulder. Consider calcific tendinosis/tendinopathy, supraspinatus. Electronically signed by: Raghav Porras MD 11/30/2024 09:28 AM EDT RP Head CT 12/06/24 10:46 IMPRESSION: Continued evolution of a right frontoparietal subdural hematoma measuring up to 6 mm in thickness with mild mass effect. No intracranial hemorrhage or other acute intracranial abnormality. Electronically signed by: Miguel Ness MD 12/06/2024 11:23 AM EDT RP Elbow X-Ray 12/07/24 09:11 IMPRESSION: No evidence of fracture of the right elbow. Electronically signed by: Blayne Avila MD 12/07/2024 09:43 AM EDT RP Elbow X-Ray 12/07/24 09:13 IMPRESSION: No evidence of fracture of the left elbow. Electronically signed by: Blayne Avila MD 12/07/2024 09:44 AM EDT RP Humerus X-Ray 12/07/24 14:02 IMPRESSION: No acute fracture, left humerus. No change Electronically signed by: Raghav Porras MD 12/07/2024 02:14 PM EDT RP Medications Medications Current Medications Acetaminophen (Acetaminophen 325 Mg Tablet) 650 mg PO Q6H PRN PRN Reason: Headache/Pain, Scale 1-10 Last Admin: 12/11/24 20:19 Dose: 650 mg Al Hydroxide/Mg Hydroxide (Magnesium Hydrox/Alum Hydrox 30 Ml Oral.Susp) 30 ml PO Q6H PRN PRN Reason: Heartburn/Nausea Bisacodyl (Bisacodyl 10 Mg Supp.Rect) 10 mg MN DAILY PRN PRN Reason: Constipation Last Admin: 12/08/24 16:44 Dose: 10 mg Diazepam (Diazepam 5 Mg Tablet) 5 mg PO TID [facility]Y Last Admin: 01/13/25 07:59 Dose: 5 mg Diazepam (Diazepam 10 Mg/2 Ml Cartridge) 10 mg IM BID PRN PRN Reason: if refuses Po,hold ifsedation Last Admin: 01/09/25 10:22 Dose: 10 mg Finasteride (Finasteride 5 Mg Tablet) 5 mg PO DAILY [facility] Last Admin: 01/13/25 08:00 Dose: 5 mg Fludrocortisone Acetate (Fludrocortisone Acetate 0.1 Mg Tablet) 0.2 mg PO DAILY [facility] Last Admin: 01/13/25 07:59 Dose: 0.2 mg Hydrocortisone (Hydrocortisone 1 % Ointment 28.35 Gm Tube) 1 appl TOPICAL BID [facility]; Protocol Last Admin: 01/12/25 20:11 Dose: Not Given Magnesium Hydroxide (Milk Of Magnesia 30 Ml Oral.Susp) 30 ml PO DAILY PRN PRN Reason: Constipation Morphine Sulfate (Morphine Sulfate Oral Reina 10 Mg/5 Ml Solution) 2.5 mg PO Q4H PRN PRN Reason: Pain, Severe (Pain Scale 7-10) Last Admin: 01/13/25 07:58 Dose: 2.5 mg Olanzapine (Olanzapine 10 Mg Vial) 5 mg IM BID PRN PRN Reason: if refuses oral olanzapine Last Admin: 01/09/25 10:20 Dose: 5 mg Olanzapine (Olanzapine Odt 10 Mg Tab.Rapdis) 10 mg TRANSLINGU Q6H PRN PRN Reason: agitation Last Admin: 01/11/25 01:36 Dose: 10 mg Olanzapine (Olanzapine 5 Mg Tablet) 5 mg PO TID [facility] Last Admin: 01/13/25 07:59 Dose: 5 mg Senna (Sennosides 8.6 Mg Tablet) 8.6 mg PO Q12H PRN PRN Reason: Constipation Last Admin: 01/11/25 01:37 Dose: 8.6 mg Sodium Biphosphate/Sodium Phosphate (Sodium Phosphate,[place]-Dibasic 133 Ml Enema) 118 ml MN DAILY PRN PRN Reason: Constipation Tamsulosin HCl (Tamsulosin Hcl 0.4 Mg Capsule) 0.4 mg PO DAILY [facility] Last Admin: 01/13/25 07:59 Dose: 0.4 mg Trazodone HCl (Trazodone Hcl 50 Mg Tablet) 50 mg PO BEDTIME PRN PRN Reason: Insomnia Last Admin: 01/04/25 02:53 Dose: 50 mg Trazodone HCl (Trazodone Hcl 100 Mg Tablet) 100 mg PO BEDTIME [facility] Last Admin: 01/12/25 20:12 Dose: Not Given Trimethoprim/Sulfamethoxazole (Sulfamethox/Trimeth 800/160 Tablet) 1 tab PO Q12H [facility] Last Admin: 01/13/25 06:15 Dose: Not Given Allergies Allergies Allergy/AdvReac Type Severity Reaction Status Date / Time No Known Allergies Allergy Verified 11/30/24 02:25 Assessment & Plan Assessment & Plan (1) Hypotension: Status: Acute Code(s): I95.9 - Hypotension, unspecified (2) Dementia: Status: Acute Code(s): F03.90 - Unspecified dementia, unspecified severity, without behavioral disturbance, psychotic disturbance, mood disturbance, and anxiety Plan Mr. Quintero is a 79 year-old male with hx of neurocognitive disorder. 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 12/30 continues to present as agitated, not taking medications, one to one due to fall risk. 01/02 continue tx 01/03 increase valium to 5mg po TID. 01/04 continue tx. 01/05 continue tx. 01/06 continue tx. declines most oral medications. 01/07: Continue current regimen and plans 01/08: Continue current regimen and plans 01/09: Continue current regimen and plans. 01/10 possible L2 fracture, hospitalist following, increase oxycodone. 01/11: Continue current treatment regimen 01/12: Continue current treatment regimen. Anurag stockings discontinued. Safety checks changed to 5 minutes as patient has been sleeping most of the time. Midodrine discontinued as blood pressure evaluation was discontinued 01/13/25: He takes all AM medication this morning but here and there refused scheduled meds. Sleep well. Bladder scan twice in the evening and overnight last night. Ate 30% for lunch, about 600mg of fluid plus ensure. Out to the unit in common areas, spend some time in sensory room sitting in the couch reading. Engage in conversation. Report he feels tired but slept good. Report he ate yesterday but not sure if he would eat lunch. Report pain on right leg and right hand but not able to rate the pain. He eventually says my is the pain in the butt when asked if he has anyone visiting him today or the past couple of days. Report last BM was two days ago. Observed coughing a couple of times but putting the collar of T shirt to cover his mouth. Continue with current tx plan. Patient educated on: medication risk/benefits and therapeutic strategies Informed Consent: further education needed Reason for continued inpatient stay Substantial Risk for: inability to function and med/psych decompensation Time Spent With Patient Time: Total time managing care of this patient today ____ minutes.
[2025-01-13] MEDS: Hydrocortisone 1 % Ointment 28.35 GM TUBE 1 APPL TOPICAL (16:45)
[2025-01-13] MEDS: Sulfamethox/Trimeth 800/160 TABLET 1 TAB PO (17:33)
[2025-01-14] MEDS: Morphine Sulfate Oral Sol 10 MG/5 ML SOLUTION 2.5 MG PO ×4 (00:07→21:00)
--- NOTE | 2025-01-14 20:18 | HO.PSYCHPN ---
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 Patient is more isolated in room, appeared to be tired, not talk or engage in conversation compared yesterday. Intermittently compliant with medications. Gets morphine for pain. Bladder scan a couple of times last night for about 400 mL. Continue with comfort meds only. His slept through the night. Medication Compliance: Intermittent Side effects from medications: No Attending Groups: No Review of Systems Acute medical concerns: No Medical Review of Systems: unchanged Review of Systems Review of Systems Limited due to patient's cognition. 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 Wearing glasses. Behavior:calm, reading in Sensory room Speech: Notable to assess Thought process: Not able to assess Thought content: Not able to assess Mood: tired Affect: congruent SI: Not able to assess HI: Not able to assess VH/AH: Not able to assess Delusions: Not able to assess Insight/judgment: Not able to assess Memory/cog: Not able to assess Diagnostics Vital Signs (24Hr): BMI result Body Mass Index 19.1 Labs 01/03/25 08:10 12/21/24 15:02 Imaging Radiology Impressions: ITS Impressions Clavicle X-Ray 11/30/24 08:08 IMPRESSION: Inferiorly displaced fracture distal right clavicle, probable old. Degenerative changes, right shoulder. Consider calcific tendinosis/tendinopathy, supraspinatus. Electronically signed by: Raghav Porras MD 11/30/2024 09:28 AM EDT RP Head CT 12/06/24 10:46 IMPRESSION: Continued evolution of a right frontoparietal subdural hematoma measuring up to 6 mm in thickness with mild mass effect. No intracranial hemorrhage or other acute intracranial abnormality. Electronically signed by: Miguel Ness MD 12/06/2024 11:23 AM EDT RP Elbow X-Ray 12/07/24 09:11 IMPRESSION: No evidence of fracture of the right elbow. Electronically signed by: Blayne Avila MD 12/07/2024 09:43 AM EDT RP Elbow X-Ray 12/07/24 09:13 IMPRESSION: No evidence of fracture of the left elbow. Electronically signed by: Blayne Avila MD 12/07/2024 09:44 AM EDT RP Humerus X-Ray 12/07/24 14:02 IMPRESSION: No acute fracture, left humerus. No change Electronically signed by: Raghav Porras MD 12/07/2024 02:14 PM EDT RP Medications Medications Current Medications Acetaminophen (Acetaminophen 325 Mg Tablet) 650 mg PO Q6H PRN PRN Reason: Headache/Pain, Scale 1-10 Last Admin: 12/11/24 20:19 Dose: 650 mg Al Hydroxide/Mg Hydroxide (Magnesium Hydrox/Alum Hydrox 30 Ml Oral.Susp) 30 ml PO Q6H PRN PRN Reason: Heartburn/Nausea Bisacodyl (Bisacodyl 10 Mg Supp.Rect) 10 mg [place] DAILY PRN PRN Reason: Constipation Last Admin: 12/08/24 16:44 Dose: 10 mg Diazepam (Diazepam 5 Mg Tablet) 5 mg PO TID [facility] Last Admin: 01/14/25 15:40 Dose: Not Given Diazepam (Diazepam 10 Mg/2 Ml Cartridge) 10 mg IM BID PRN PRN Reason: if refuses Po,hold ifsedation Last Admin: 01/09/25 10:22 Dose: 10 mg Finasteride (Finasteride 5 Mg Tablet) 5 mg PO DAILY [facility] Last Admin: 01/14/25 09:45 Dose: Not Given Fludrocortisone Acetate (Fludrocortisone Acetate 0.1 Mg Tablet) 0.2 mg PO DAILY [facility] Last Admin: 01/14/25 09:45 Dose: Not Given Hydrocortisone (Hydrocortisone 1 % Ointment 28.35 Gm Tube) 1 appl TOPICAL BID [facility]; Protocol Last Admin: 01/14/25 09:45 Dose: Not Given Magnesium Hydroxide (Milk Of Magnesia 30 Ml Oral.Susp) 30 ml PO DAILY PRN PRN Reason: Constipation Morphine Sulfate (Morphine Sulfate Oral Reina 10 Mg/5 Ml Solution) 2.5 mg PO Q4H PRN PRN Reason: Pain, Severe (Pain Scale 7-10) Last Admin: 01/14/25 15:39 Dose: 2.5 mg Olanzapine (Olanzapine 10 Mg Vial) 5 mg IM BID PRN PRN Reason: if refuses oral olanzapine Last Admin: 01/09/25 10:20 Dose: 5 mg Olanzapine (Olanzapine Odt 10 Mg Tab.Rapdis) 10 mg TRANSLINGU Q6H PRN PRN Reason: agitation Last Admin: 01/11/25 01:36 Dose: 10 mg Olanzapine (Olanzapine 5 Mg Tablet) 5 mg PO TID [facility] Last Admin: 01/14/25 15:40 Dose: Not Given Senna (Sennosides 8.6 Mg Tablet) 8.6 mg PO Q12H PRN PRN Reason: Constipation Last Admin: 01/11/25 01:37 Dose: 8.6 mg Sodium Biphosphate/Sodium Phosphate (Sodium Phosphate,[place]-Dibasic 133 Ml Enema) 118 ml AR DAILY PRN PRN Reason: Constipation Tamsulosin HCl (Tamsulosin Hcl 0.4 Mg Capsule) 0.4 mg PO DAILY [facility] Last Admin: 01/14/25 09:45 Dose: Not Given Trazodone HCl (Trazodone Hcl 50 Mg Tablet) 50 mg PO BEDTIME PRN PRN Reason: Insomnia Last Admin: 01/04/25 02:53 Dose: 50 mg Trazodone HCl (Trazodone Hcl 100 Mg Tablet) 100 mg PO BEDTIME [facility] Last Admin: 01/13/25 22:09 Dose: Not Given Trimethoprim/Sulfamethoxazole (Sulfamethox/Trimeth 800/160 Tablet) 1 tab PO Q12H [facility] Last Admin: 01/14/25 17:13 Dose: Not Given Allergies Allergies Allergy/AdvReac Type Severity Reaction Status Date / Time No Known Allergies Allergy Verified 11/30/24 02:25 Assessment & Plan Assessment & Plan (1) Hypotension: Status: Acute Code(s): I95.9 - Hypotension, unspecified (2) Dementia: Status: Acute Code(s): F03.90 - Unspecified dementia, unspecified severity, without behavioral disturbance, psychotic disturbance, mood disturbance, and anxiety Plan Mr. Quintero is a 79 year-old male with hx of neurocognitive disorder. 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 12/30 continues to present as agitated, not taking medications, one to one due to fall risk. 01/02 continue tx 01/03 increase valium to 5mg po TID. 01/04 continue tx. 01/05 continue tx. 01/06 continue tx. declines most oral medications. 01/07: Continue current regimen and plans 01/08: Continue current regimen and plans 01/09: Continue current regimen and plans. 01/10 possible L2 fracture, hospitalist following, increase oxycodone. 01/11: Continue current treatment regimen 01/12: Continue current treatment regimen. Anurag stockings discontinued. Safety checks changed to 5 minutes as patient has been sleeping most of the time. Midodrine discontinued as blood pressure evaluation was discontinued 01/13/25: He takes all AM medication this morning but here and there refused scheduled meds. Sleep well. Bladder scan twice in the evening and overnight last night. Ate 30% for lunch, about 600mg of fluid plus ensure. Out to the unit in common areas, spend some time in sensory room sitting in the couch reading. Engage in conversation. Report he feels tired but slept good. Report he ate yesterday but not sure if he would eat lunch. Report pain on right leg and right hand but not able to rate the pain. He eventually says my is the pain in the butt when asked if he has anyone visiting him today or the past couple of days. Report last BM was two days ago. Observed coughing a couple of times but putting the collar of T shirt to cover his mouth. Continue with current tx plan. 01/14/25: Patient is more isolated in room, appeared to be tired, not talk or engage in conversation compared yesterday. Intermittently compliant with medications. Gets morphine for pain. Bladder scan a couple of times last night for about 400 mL. Continue with comfort meds only. His slept through the night. Patient educated on: medication risk/benefits and therapeutic strategies Informed Consent: further education needed Reason for continued inpatient stay Substantial Risk for: inability to function and med/psych decompensation Time Spent With Patient Time: Total time managing care of this patient today ____ minutes.
[2025-01-15] MEDS: Morphine Sulfate Oral Sol 10 MG/5 ML SOLUTION 2.5 MG PO ×3 (07:49→17:11)
--- NOTE | 2025-01-15 11:35 | P.PNPSI_ITS ---
Subjective Subjective Date of Service: 01/15/25 Reason For Visit: agitation Subjective Notes: Conditional Voluntary (by HCP) Healthcare Proxy: Yes Interim History: Medical record and nursing notes reviewed; case discussed during rounds with team/nursing staff, and met with patient for supportive therapy/psychoeducation, as well as medication management. Per nursing note and report: around 11 am it was noted that he was having some mottling of his lower legs his knees and feet. Nursing notiifed provider and supervisor car and yard. His was called and updated. Family arrived through out the day. At times he was noted to have upper airway congestion which he cleared on his own, Bladder scan at 3p was 538 and he was cathed for 350- 400 ml of very dark lukas urine, His coccyx region was noted to have the start of DTI shaped like butterfly protective dsg applied and also applied to heels on his left heel he has the start of an area there as well from his other foot, so heels. covered for protection. 1700 became restless stripping his clothes and brief given meds, Tempt 36. 7. Provider notified and hospitalist updated, hospitalist was not welcoming about transfering him for his passing. Rubén contacted and he stated as long as the provider was comfortable handling it it fine for him to stay, provider updated and think it could be appropriate for patient to stay on the unit. He is resting quietly with an occasional moaning but he is easily consoled This provider assessed patient in his room. Patient did not engaged in conversation, he is alert but answering any questions. Medication change to adapt to his current situation. Morphine increased, change Valium to Ativan scheduled with PRNs to assist and provide comfort. Patient received the scheduled medication as mentioned above from nursing notes. Current medication is: Discontinue all meds except the following meds: Morphine 5 mg scheduled for every 4 hours, and 2.5 scheduled every 2 hours p.r.n.. Ativan 1 mg q.4 hours scheduled, and 0.5 Ativan Q 2 hours for agitation/severe anxiety. Scopolamine 1.5 mg every 3 days for nauseous and vomiting. Working with medical team to assist the patient during this process. Per hospitalist, patient was evaluated and seems patient is comfortable at the moment. If he gets was in not taking by mouth, patient can get IV and give him comfort meds. If patient needs lots of attention we can discuss with the supervisor car and yard and bring patient upstairs for medical floor. Medication Compliance: Intermittent Side effects from medications: No Attending Groups: No Review of Systems Medical Review of Systems: unchanged Review of Systems Review of Systems Limited due to patient's cognition. 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 Wearing glasses. Behavior: rested, sleeping, tired Speech: mute, not engage or talk Thought process: Not able to assess Thought content: Not able to assess Mood: tired Affect: congruent SI: Not able to assess HI: Not able to assess VH/AH: Not able to assess Delusions: Not able to assess Insight/judgment: Not able to assess Memory/cog: Not able to assess Diagnostics Vital Signs (24Hr): BMI result Body Mass Index 19.1 Labs 01/03/25 08:10 12/21/24 15:02 Imaging Radiology Impressions: ITS Impressions Clavicle X-Ray 11/30/24 08:08 IMPRESSION: Inferiorly displaced fracture distal right clavicle, probable old. Degenerative changes, right shoulder. Consider calcific tendinosis/tendinopathy, supraspinatus. Electronically signed by: Raghav Porras MD 11/30/2024 09:28 AM EDT RP Head CT 12/06/24 10:46 IMPRESSION: Continued evolution of a right frontoparietal subdural hematoma measuring up to 6 mm in thickness with mild mass effect. No intracranial hemorrhage or other acute intracranial abnormality. Electronically signed by: Miguel Ness MD 12/06/2024 11:23 AM EDT RP Elbow X-Ray 12/07/24 09:11 IMPRESSION: No evidence of fracture of the right elbow. Electronically signed by: Blayne Avila MD 12/07/2024 09:43 AM EDT RP Elbow X-Ray 12/07/24 09:13 IMPRESSION: No evidence of fracture of the left elbow. Electronically signed by: Blayne Avila MD 12/07/2024 09:44 AM EDT RP Humerus X-Ray 12/07/24 14:02 IMPRESSION: No acute fracture, left humerus. No change Electronically signed by: Raghav Porras MD 12/07/2024 02:14 PM EDT RP Medications Medications Current Medications Acetaminophen (Acetaminophen 325 Mg Tablet) 650 mg PO Q6H PRN PRN Reason: Headache/Pain, Scale 1-10 Last Admin: 12/11/24 20:19 Dose: 650 mg Al Hydroxide/Mg Hydroxide (Magnesium Hydrox/Alum Hydrox 30 Ml Oral.Susp) 30 ml PO Q6H PRN PRN Reason: Heartburn/Nausea Bisacodyl (Bisacodyl 10 Mg Supp.Rect) 10 mg NE DAILY PRN PRN Reason: Constipation Last Admin: 12/08/24 16:44 Dose: 10 mg Diazepam (Diazepam 5 Mg Tablet) 5 mg PO TID [facility] Last Admin: 01/15/25 11:27 Dose: 5 mg Diazepam (Diazepam 10 Mg/2 Ml Cartridge) 10 mg IM BID PRN PRN Reason: if refuses Po,hold ifsedation Last Admin: 01/09/25 10:22 Dose: 10 mg Finasteride (Finasteride 5 Mg Tablet) 5 mg PO DAILY [facility] Last Admin: 01/15/25 10:55 Dose: Not Given Fludrocortisone Acetate (Fludrocortisone Acetate 0.1 Mg Tablet) 0.2 mg PO DAILY [facility] Last Admin: 01/15/25 10:55 Dose: Not Given Hydrocortisone (Hydrocortisone 1 % Ointment 28.35 Gm Tube) 1 appl TOPICAL BID [facility]; Protocol Last Admin: 01/15/25 10:56 Dose: Not Given Magnesium Hydroxide (Milk Of Magnesia 30 Ml Oral.Susp) 30 ml PO DAILY PRN PRN Reason: Constipation Morphine Sulfate (Morphine Sulfate Oral Reina 10 Mg/5 Ml Solution) 2.5 mg PO Q4H PRN PRN Reason: Pain, Severe (Pain Scale 7-10) Last Admin: 01/15/25 07:49 Dose: 2.5 mg Morphine Sulfate (Morphine Sulfate Oral Reina 10 Mg/5 Ml Solution) 2.5 mg PO Q6H [facility] Last Admin: 01/15/25 11:25 Dose: 2.5 mg Olanzapine (Olanzapine 10 Mg Vial) 5 mg IM BID PRN PRN Reason: if refuses oral olanzapine Last Admin: 01/09/25 10:20 Dose: 5 mg Olanzapine (Olanzapine Odt 10 Mg Tab.Rapdis) 10 mg TRANSLINGU Q6H PRN PRN Reason: agitation Last Admin: 01/11/25 01:36 Dose: 10 mg Olanzapine (Olanzapine 5 Mg Tablet) 5 mg PO TID ENDY Last Admin: 01/15/25 10:56 Dose: Not Given Senna (Sennosides 8.6 Mg Tablet) 8.6 mg PO Q12H PRN PRN Reason: Constipation Last Admin: 01/11/25 01:37 Dose: 8.6 mg Sodium Biphosphate/Sodium Phosphate (Sodium Phosphate,[place]-Dibasic 133 Ml Enema) 118 ml NE DAILY PRN PRN Reason: Constipation Tamsulosin HCl (Tamsulosin Hcl 0.4 Mg Capsule) 0.4 mg PO DAILY ENDY Last Admin: 01/15/25 10:56 Dose: Not Given Trazodone HCl (Trazodone Hcl 50 Mg Tablet) 50 mg PO BEDTIME PRN PRN Reason: Insomnia Last Admin: 01/04/25 02:53 Dose: 50 mg Trazodone HCl (Trazodone Hcl 100 Mg Tablet) 100 mg PO BEDTIME ENDY Last Admin: 01/14/25 22:37 Dose: Not Given Trimethoprim/Sulfamethoxazole (Sulfamethox/Trimeth 800/160 Tablet) 1 tab PO Q12H ENDY Last Admin: 01/15/25 07:27 Dose: Not Given Allergies Allergies Allergy/AdvReac Type Severity Reaction Status Date / Time No Known Allergies Allergy Verified 11/30/24 02:25 Assessment & Plan Assessment & Plan (1) Hypotension: Status: Acute Code(s): I95.9 - Hypotension, unspecified (2) Dementia: Status: Acute Code(s): F03.90 - Unspecified dementia, unspecified severity, without behavioral disturbance, psychotic disturbance, mood disturbance, and anxiety Plan Mr. Quintero is a 79 year-old male with hx of neurocognitive disorder. 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 12/30 continues to present as agitated, not taking medications, one to one due to fall risk. 01/02 continue tx 01/03 increase valium to 5mg po TID. 01/04 continue tx. 01/05 continue tx. 01/06 continue tx. declines most oral medications. 01/07: Continue current regimen and plans 01/08: Continue current regimen and plans 01/09: Continue current regimen and plans. 01/10 possible L2 fracture, hospitalist following, increase oxycodone. 01/11: Continue current treatment regimen 01/12: Continue current treatment regimen. Anurag stockings discontinued. Safety checks changed to 5 minutes as patient has been sleeping most of the time. Midodrine discontinued as blood pressure evaluation was discontinued 01/13/25: He takes all AM medication this morning but here and there refused scheduled meds. Sleep well. Bladder scan twice in the evening and overnight last night. Ate 30% for lunch, about 600mg of fluid plus ensure. Out to the unit in common areas, spend some time in sensory room sitting in the couch reading. Engage in conversation. Report he feels tired but slept good. Report he ate yesterday but not sure if he would eat lunch. Report pain on right leg and right hand but not able to rate the pain. He eventually says my is the pain in the butt when asked if he has anyone visiting him today or the past couple of days. Report last BM was two days ago. Observed coughing a couple of times but putting the collar of T shirt to cover his mouth. Continue with current tx plan. 01/14/25: Patient is more isolated in room, appeared to be tired, not talk or engage in conversation compared yesterday. Intermittently compliant with medications. Gets morphine for pain. Bladder scan a couple of times last night for about 400 mL. Continue with comfort meds only. His slept through the night. 01/15/25: around 11 am it was noted that he was having some mottling of his lower legs his knees and feet. Nursing notiifed provider and supervisor car and yard. His was called and updated. Family arrived through out the day. Discontinue all meds except the following meds: Morphine 5 mg scheduled for every 4 hours, and 2.5 every 2 hours p.r.n.. Ativan 1 mg q.4 hours scheduled, and 0.5 Ativan Q 2 hours for agitation/severe anxiety. Scopolamine 1.5 mg every 3 days for nauseous and vomiting. Working with medical team to assist the patient during this process. Per hospitalist, patient was evaluated and seems patient is comfortable at the moment. If he gets was in not taking by mouth, patient can get IV and give him comfort meds. If patient needs lots of attention we can discuss with the supervisor car and yard and bring patient upstairs for medical floor. Patient educated on: other (not able to provider teaching d/t AMS) Reason for continued inpatient stay Substantial Risk for: inability to function and other (GROUND SUPPORT AGENT) Time Spent With Patient Time: Total time managing care of this patient today ____ minutes.
--- NOTE | 2025-01-15 17:15 | PC.NURSE ---
Morning dose of valium was given at 11;30 and 3p dose was given at 5p but MAR not reflecting the doses.
[2025-01-15] MEDS: Morphine Sulfate Oral Sol 10 MG/5 ML SOLUTION 5 MG PO (22:44)
[2025-01-16] MEDS: Morphine Sulfate Oral Sol 10 MG/5 ML SOLUTION 5 MG PO ×6 (01:24→21:25)
[2025-01-16] MEDS: Hydrocortisone 1 % Ointment 28.35 GM TUBE 1 APPL TOPICAL ×2 (11:07→21:38)
[2025-01-16] MEDS: Morphine Sulfate Oral Sol 10 MG/5 ML SOLUTION 2.5 MG PO (12:03)
--- NOTE | 2025-01-16 20:17 | HO.PSYCHPN ---
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 Per nursing: Bed bath and partial linen change performed, patient position changed at least every 2 hours, pillows utilized for comfort and to offload pressure off bony prominences. Patient had BM, large deion blood and clots present, patient cleaned , medicated with morphine, bladder scan with 51 mL. Family frequently at bedside. Patient in bed all day, mostly sleeping/resting. Not able to wake during assessed. Family members take turn to be with patient in room. Talked to his son aDvid. David talked about how active patient was. Family all agrees with end of life plan. David says family does not want to suffer more. It is hard to see him declined the past 6 months. Mom is aging d/t taking care of him at home prior to be hospitalized. Update David regarding patient's status the past couple of days. Provide emotion support as needed. Continue to give care to make sure patient feels the most comfortable feeling we could. Atropine sublingual for secretion ordered. Medication Compliance: Yes Review of Systems Medical Review of Systems: unchanged Review of Systems Review of Systems Limited due to patient's cognition. 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 Behavior: rested, sleeping, tired Speech: mute, not engage or talk Thought process: Not able to assess Thought content: Not able to assess Mood: tired Affect: eye closed. SI: Not able to assess HI: Not able to assess VH/AH: Not able to assess Delusions: Not able to assess Insight/judgment: Not able to assess Memory/cog: Not able to assess Diagnostics Vital Signs (24Hr): BMI result Body Mass Index 19.1 Labs 01/03/25 08:10 12/21/24 15:02 Imaging Radiology Impressions: ITS Impressions Clavicle X-Ray 11/30/24 08:08 IMPRESSION: Inferiorly displaced fracture distal right clavicle, probable old. Degenerative changes, right shoulder. Consider calcific tendinosis/tendinopathy, supraspinatus. Electronically signed by: Raghav Porras MD 11/30/2024 09:28 AM EDT RP Head CT 12/06/24 10:46 IMPRESSION: Continued evolution of a right frontoparietal subdural hematoma measuring up to 6 mm in thickness with mild mass effect. No intracranial hemorrhage or other acute intracranial abnormality. Electronically signed by: Miguel Ness MD 12/06/2024 11:23 AM EDT RP Elbow X-Ray 12/07/24 09:11 IMPRESSION: No evidence of fracture of the right elbow. Electronically signed by: Blayne Avila MD 12/07/2024 09:43 AM EDT RP Elbow X-Ray 12/07/24 09:13 IMPRESSION: No evidence of fracture of the left elbow. Electronically signed by: Blayne Avila MD 12/07/2024 09:44 AM EDT RP Humerus X-Ray 12/07/24 14:02 IMPRESSION: No acute fracture, left humerus. No change Electronically signed by: Raghav Porras MD 12/07/2024 02:14 PM EDT RP Medications Medications Current Medications Atropine Sulfate (Atropine Sulfate 1 % Ophth Reina 2 Ml Bottle) 2 drop SUBLINGUAL Q2H PRN PRN Reason: excessive secretion Hydrocortisone (Hydrocortisone 1 % Ointment 28.35 Gm Tube) 1 appl TOPICAL BID ENDY; Protocol Last Admin: 01/16/25 11:07 Dose: 1 appl Lorazepam (Lorazepam 1 Mg Tablet) 1 mg PO Q4H ENDY Last Admin: 01/16/25 18:18 Dose: Not Given Lorazepam (Lorazepam 0.5 Mg Tablet) 0.5 mg PO Q2H PRN PRN Reason: Anxiety/agitation Morphine Sulfate (Morphine Sulfate Oral Reina 10 Mg/5 Ml Solution) 5 mg PO Q4H ENDY Last Admin: 01/16/25 17:54 Dose: 5 mg Morphine Sulfate (Morphine Sulfate Oral Reina 10 Mg/5 Ml Solution) 2.5 mg PO Q2H PRN PRN Reason: Pain, Severe (Pain Scale 7-10) Last Admin: 01/16/25 12:03 Dose: 2.5 mg Scopolamine (Scopolamine 1.5 Mg Patch.Td.3) 1.5 mg EAR-BEHIND ONCE PRN PRN Reason: Secretions Scopolamine (Scopolamine 1.5 Mg Patch.Td.3) 1.5 mg EAR-BEHIND Q72H ENDY Last Admin: 01/15/25 20:31 Dose: 1.5 mg Allergies Allergies Allergy/AdvReac Type Severity Reaction Status Date / Time No Known Allergies Allergy Verified 11/30/24 02:25 Assessment & Plan Assessment & Plan (1) Hypotension: Status: Acute Code(s): I95.9 - Hypotension, unspecified (2) Dementia: Status: Acute Code(s): F03.90 - Unspecified dementia, unspecified severity, without behavioral disturbance, psychotic disturbance, mood disturbance, and anxiety Plan Mr. Quintero is a 79 year-old male with hx of neurocognitive disorder. 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 12/30 continues to present as agitated, not taking medications, one to one due to fall risk. 01/02 continue tx 01/03 increase valium to 5mg po TID. 01/04 continue tx. 01/05 continue tx. 01/06 continue tx. declines most oral medications. 01/07: Continue current regimen and plans 01/08: Continue current regimen and plans 01/09: Continue current regimen and plans. 01/10 possible L2 fracture, hospitalist following, increase oxycodone. 01/11: Continue current treatment regimen 01/12: Continue current treatment regimen. Anurag stockings discontinued. Safety checks changed to 5 minutes as patient has been sleeping most of the time. Midodrine discontinued as blood pressure evaluation was discontinued 01/13/25: He takes all AM medication this morning but here and there refused scheduled meds. Sleep well. Bladder scan twice in the evening and overnight last night. Ate 30% for lunch, about 600mg of fluid plus ensure. Out to the unit in common areas, spend some time in sensory room sitting in the couch reading. Engage in conversation. Report he feels tired but slept good. Report he ate yesterday but not sure if he would eat lunch. Report pain on right leg and right hand but not able to rate the pain. He eventually says my is the pain in the butt when asked if he has anyone visiting him today or the past couple of days. Report last BM was two days ago. Observed coughing a couple of times but putting the collar of T shirt to cover his mouth. Continue with current tx plan. 01/14/25: Patient is more isolated in room, appeared to be tired, not talk or engage in conversation compared yesterday. Intermittently compliant with medications. Gets morphine for pain. Bladder scan a couple of times last night for about 400 mL. Continue with comfort meds only. His slept through the night. 01/15/25: around 11 am it was noted that he was having some mottling of his lower legs his knees and feet. Nursing notiifed provider and receiving and processing supervisor. His was called and updated. Family arrived through out the day. Discontinue all meds except the following meds: Morphine 5 mg scheduled for every 4 hours, and 2.5 every 2 hours p.r.n.. Ativan 1 mg q.4 hours scheduled, and 0.5 Ativan Q 2 hours for agitation/severe anxiety. Scopolamine 1.5 mg every 3 days for nauseous and vomiting. Working with medical team to assist the patient during this process. Per hospitalist, patient was evaluated and seems patient is comfortable at the moment. If he gets was in not taking by mouth, patient can get IV and give him comfort meds. If patient needs lots of attention we can discuss with the receiving and processing supervisor and bring patient upstairs for medical floor. 01/16/25: Per nursing: Bed bath and partial linen change performed, patient position changed at least every 2 hours, pillows utilized for comfort and to offload pressure off bony prominences. Patient had BM, large deion blood and clots present, patient cleaned , medicated with morphine, bladder scan with 51 mL. Family frequently at bedside. Patient in bed all day, mostly sleeping/resting. Not able to wake during assessed. Family members take turn to be with patient in room. Talked to his son David. David talked about how active patient was. Family all agrees with end of life plan. David says family does not want to suffer more. It is hard to see him declined the past 6 months. Mom is aging d/t taking care of him at home prior to be hospitalized. Update David regarding patient's status the past couple of days. Provide emotion support as needed. Continue to give care to make sure patient feels the most comfortable feeling we could. Atropine sublingual for secretion ordered. Guardian/Caregiver educated on: medication risk/benefits and medical condition Reason for continued inpatient stay Substantial Risk for: inability to function Time Spent With Patient Time: Total time managing care of this patient today ____ minutes.
[2025-01-17] MEDS: Morphine Sulfate Oral Sol 10 MG/5 ML SOLUTION 5 MG PO (02:22)
--- NOTE | 2025-01-17 04:27 | PM.DDS ---
Discharge Sum: Prov Provider Primary care physician: Unknown Physician Consults: 12/01/24 17:25 Consult to Wound Care Routine Reason for consultation: open/scabbed areas on all extremities,skin tears-hands 12/03/24 11:33 Consult to Hospitalist Routine Comment: Consulting Provider: [facility] Reason For Exam: urinary urge/pain also suprapubic abd pain; UA neg 12/16/24 11:22 Consult to Nephrology Routine Consulting Provider: [facility] [place] Reason for consultation: Hypotension 12/17/24 14:43 Consult to Hospitalist Routine Comment: chose Ampicillin since needs to be IM Consulting Provider: [facility] [place] [facility] Reason For Exam: review abx choice: Ampicillin Sensitive and IM 01/03/25 07:00 Consult to Urology Routine Consulting Provider: [facility] [place] Reason for consultation: blood when straight cathed Has provider been notified: No 01/03/25 09:17 Consult to Urology Routine Consulting Provider: [facility] [place] [facility] Reason for consultation: Jose Manuel blood from penis Discharge Sum: Diag Contributing Factors (1) Hypotension: (2) Dementia: Discharge Sum: Summary Date and Time Date of admission: 12/01/24 12:49 Date of : 01/17/25 Time of : 04:15 Summary Details: 79 year old male with vascular dementia, BPH, hypotension, acute on chronic subdural hematoma, GERD admitted to [facility] for further treatment of Dementia with behavioral disturbances. Vascular dementia/Aggression. Treatment per psych team. Patient intermittently accepts oral medications and food and fluids. Reviewed most with family, family does not wish to have any further workups including labs, imaging, testing. They do not desire feeding tube, intravenous fluids, dialysis, resuscitative measures. Family wishes comfort measures only, low-dose morphine added for comfort. MOLST updated. He continues on Valium SW working with family for appropriate DC planning. Patient will be referred to long-term care when barriers are addressed. Barriers to discharge include ongoing behavioral disturbances, non medication compliance, 1-1 and financial barriers. History of falls CT head and cervical spine without any injuries On exam no obvious injury, patient has full range of motion with no evidence of pain or discomfort CT demonstrates questionable transverse fracture to L2. No palpable tenderness. X-ray ordered for further definition, patient refused this. BPH/Urinary retention Patient has been voiding at times, still requiring intermittent catheterizing Continue Finesteride and Flomax, patient has been refusing Will need outpatient urology follow up. Bladder scan Q 6 hours and SC greater than 350 ccs Would not recommend any further urine cultures unless there are clear signs and symptoms that localized to the urinary tract Avoid treating asymptomatic bacteriuria Acute on Chronic subdural hematoma CT scans of the head consistent with old subdural hematoma. Recent CT demonstrates no change status post fall Hypotension Continue Midodrine TID, and Florinef 0.2 mgs daily. Frequently refuses Anurag stockings Despite midodrine, BP's consistently low. Refused ECHO, Random cortisol level within normal limits Nephrology following GERD Continue PPI- Has been refusing note: At around 04:10 RN mentioned that patient appeared to have passed. I went in to check on the patient. Patient was not responding 3. No reflexes. Pupils are fixed and dilated. Patient pronounced at 04:15 a.m. on 01/17/2025. Patient's family notified Additional Data Attending physician: Jaja Pizarro NP
--- NOTE | 2025-01-17 04:58 | PC.NURSE ---
patient was seen by nurse at 044
--- NOTE | 2025-01-17 04:59 | PC.NURSE ---
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 N[employer] Supervisor [employer] [place], .
--- NOTE | 2025-01-17 08:34 | P.DS_ITS ---
DS: Providers Provider Date of Service: 01/17/25 Date of admission: 12/01/24 12:49 Date of discharge: 01/17/25 Primary care physician: Unknown Physician Attending physician on admission: Jaja Pizarro Consults: 12/01/24 17:25 Consult to Wound Care Routine Reason for consultation: open/scabbed areas on all extremities,skin tears- hands 12/03/24 11:33 Consult to Hospitalist Routine Comment: Consulting Provider: [facility] Reason For Exam: urinary urge/pain also suprapubic abd pain; UA neg 12/16/24 11:22 Consult to Nephrology Routine Consulting Provider: [facility] Reason for consultation: Hypotension 12/17/24 14:43 Consult to Hospitalist Routine Comment: chose Ampicillin since needs to be IM Consulting Provider: [facility] Reason For Exam: review abx choice: Ampicillin Sensitive and IM 01/03/25 07:00 Consult to Urology Routine Consulting Provider: [facility] Reason for consultation: blood when straight cathed Has provider been notified: No 01/03/25 09:17 Consult to Urology Routine Consulting Provider: [facility] Reason for consultation: Deion blood from penis Attending physician on discharge: Damaris Ureña DS: Diagnosis Discharge Diagnosis (1) Hypotension: Status: Acute (2) Dementia: Status: Acute DS: Medications Discharge Medications Home Medications: Home Medications ?Medication ?Instructions ?Recorded ?Confirmed acetaminophen 325 mg tablet 650 mg PO Q4H PRN Pain 11/30/24 acetaminophen 325 mg tablet 650 mg PO Q6H PRN Fever 11/30/24 atorvastatin 80 mg tablet 80 mg PO DAILY 11/21/2406/21 bisacodyl 10 mg rectal suppository 10 mg DC DAILY PRN Constipation 11/21/24 11/30/24 hydrocortisone 1 % topical 1 appl topical BID 11/21/24 11/30/24 ointment (Cortizone-10) magnesium hydroxide 400 mg/5 mL 30 ml PO DAILY PRN Con stipation 11/21/24 11/30/24 oral suspension (Milk of Magnesia) melatonin 3 mg tablet 6 mg PO BEDTIME 11/21/2406/21 menthol 5 % topical patch (Icy Hot 1 patch topical HORTENCIA LY 11/21/24 11/30/24 (menthol)) midodrine 5 mg tablet 10 mg PO TID 11/21/24 mirtazapine 15 mg tablet 7.5 mg PO BEDTIME 11/21/24 0 11/30/24 pantoprazole 40 mg tablet,delayed 40 mg PO DAILY@0630 11/21/24 11/30/24 release (Protonix) sennosides 8.6 mg tablet (Senna 8.6 mg PO Q12H PRN Con stipation 11/21/24 11/30/24 Lax) sodium phosphates 19 gram-7 118 ml DC DAILY PRN Consti pation 11/21/24 11/30/24 gram/118 mL enema (Fleet Enema) tamsulosin 0.4 mg capsule (Flomax) 0.4 mg PO DAILY 11/30/24 Previous Rx's ?Medication ?Instructions ?Recorded finasteride 5 mg tablet 5 mg PO DAILY #0 tabs Mental Status Exam Mental Status Exam Narrative: N/A Data Data Completed and Pending Completed studies during hospitalization [Text1]: 01/04/25 07:00 Urine Catheterized - Straight Catheter Urine Culture - Final Enterococcus faecalis Christiana albicans 12/15/24 Unknown Urine Catheterized - Cruz Catheter Urine Culture - Final Enterococcus faecalis 11/30/24 Unknown Urine Catheterized - Cruz Catheter Urine Culture - Final No growth. Imaging Diagnostic Imaging Impressions Clavicle X-Ray 11/30/24 08:08 IMPRESSION: Inferiorly displaced fracture distal right clavicle, probable old. Degenerative changes, right shoulder. Consider calcific tendinosis/tendinopathy, supraspinatus. Electronically signed by: Raghav Porras MD 11/30/2024 09:28 AM EDT RP Head CT 12/06/24 10:46 IMPRESSION: Continued evolution of a right frontoparietal subdural hematoma measuring up to 6 mm in thickness with mild mass effect. No intracranial hemorrhage or other acute intracranial abnormality. Electronically signed by: Miguel Ness MD 12/06/2024 11:23 AM EDT RP Elbow X-Ray 12/07/24 09:11 IMPRESSION: No evidence of fracture of the right elbow. Electronically signed by: Blayne Avila MD 12/07/2024 09:43 AM EDT RP Elbow X-Ray 12/07/24 09:13 IMPRESSION: No evidence of fracture of the left elbow. Electronically signed by: Blayne Avila MD 12/07/2024 09:44 AM EDT RP Humerus X-Ray 12/07/24 14:02 IMPRESSION: No acute fracture, left humerus. No change Electronically signed by: Raghav Porras MD 12/07/2024 02:14 PM EDT RP DS: Summary Hospital Course Hospital Course: HPI: Per admitting provider note: Mr. Quintero is a 79 year-old male with hx of dementia who was recently discharged [facility] [place] [facility] [place] as step down to [facility] and came back due to increase combative behaviors and aggression. Pertient labs completed in the ED include CBC with chronic normocytic anemia, stable H&H. CMP without electrolyte abnormalities exept for calcium which seems to be chronically low at 8.00. However, his albumin is very low 2.6 and when ionized calcium is check his calcium level is 5.2. His BUN 11, Cr 0.87, creatinine clearance 66.1. UA with protein, blood, leukocytes, no nitrites nor bacteria, culture had no growth. Note that he recently had acute on chronic hematoma, head CT shows that is currently stable. Plan: Mr. Quintero is a 79 year-old male with hx of Dementia, it does appear to be of Lewy Body with periods of visual hallucinations, autonomic dysfunction, some degree of fluctuation in terms of orientation. HCP has been invoked, he is CV by HCP. Will continue seroquel for now and assess efficacy. Mr. Quintero is a 79 year-old male with hx of neurocognitive disorder. Patient eventually on [employer]. Hospital couse:Patient intermittently accepts oral medications and food and fluids. Reviewed most with family, family does not wish to have any further workups including labs, imaging, testing. They do not desire feeding tube, intravenous fluids, dialysis, resuscitative measures. Family wishes comfort measures only, low-dose morphine added for comfort. MOLST updated. He continues on Valium SW working with family for appropriate DC planning. Patient will be referred to long-term care when barriers are addressed. Barriers to discharge include ongoing behavioral disturbances, non medication compliance, 1-1 and financial barriers. Last couple days before his last days: 01/12: Continue current treatment regimen. Anurag stockings discontinued. Safety checks changed to 5 minutes as patient has been sleeping most of the time. Midodrine discontinued as blood pressure evaluation was discontinued 01/13/25: He takes all AM medication this morning but here and there refused scheduled meds. Sleep well. Bladder scan twice in the evening and overnight last night. Ate 30% for lunch, about 600mg of fluid plus ensure. Out to the unit in common areas, spend some time in sensory room sitting in the couch reading. Engage in conversation. Report he feels tired but slept good. Report he ate yesterday but not sure if he would eat lunch. Report pain on right leg and right hand but not able to rate the pain. He eventually says my is the pain in the butt when asked if he has anyone visiting him today or the past couple of days. Report last BM was two days ago. Observed coughing a couple of times but putting the collar of T shirt to cover his mouth. Continue with current tx plan. 01/14/25: Patient is more isolated in room, appeared to be tired, not talk or engage in conversation compared yesterday. Intermittently compliant with medications. Gets morphine for pain. Bladder scan a couple of times last night for about 400 mL. Continue with comfort meds only. His slept through the night. 01/15/25: around 11 am it was noted that he was having some mottling of his lower legs his knees and feet. Nursing notified provider and bleaching supervisor. His was called and updated. Family arrived through out the day. Discontinue all meds except the following meds: Morphine 5 mg scheduled for every 4 hours, and 2.5 every 2 hours p.r.n.. Ativan 1 mg q.4 hours scheduled, and 0.5 Ativan Q 2 hours for agitation/severe anxiety. Scopolamine 1.5 mg every 3 days for nauseous and vomiting. Working with medical team to assist the patient during this process. Per hospitalist, patient was evaluated and seems patient is comfortable at the moment. If he gets was in not taking by mouth, patient can get IV and give him comfort meds. If patient needs lots of attention we can discuss with the bleaching supervisor and bring patient upstairs for medical floor. 01/16/25: Per nursing: Bed bath and partial linen change performed, patient position changed at least every 2 hours, pillows utilized for comfort and to offload pressure off bony prominences. Patient had BM, large deion blood and clots present, patient cleaned , medicated with morphine, bladder scan with 51 mL. Family frequently at bedside. Patient in bed all day, mostly sleeping/resting. Not able to wake during assessed. Family members take turn to be with patient in room. Talked to his son David. David talked about how active patient was. Family all agrees with end of life plan. David says family does not want to suffer more. It is hard to see him declined the past 6 months. Mom is aging d/t taking care of him at home prior to be hospitalized. Update David regarding patient's status the past couple of days. Provide emotion support as needed. Continue to give care to make sure patient feels the most comfortable feeling we could. Atropine sublingual for secretion ordered. 01/17/25: Per Hospital note: note: At around 04:10 RN mentioned that patient appeared to have passed. I went in to check on the patient. Patient was not responding 3. No reflexes. Pupils are fixed and dilated. Patient pronounced at 04:15 a.m. on 01/17/2025. Patient's family notified Time spent discussing smoking cessation with patient: 3 to 10 minutes (N/A) Status at Discharge Cognitive/behavioral status at discharge: Patient passed Overall status at discharge: other (Patient passed ) Time Spent with Patient Time attestation: Total time managing care of this patient today ____ minutes. Specific discharge activities: Patient passed early prior to this shift started. Discharge Plan Discharge Anticipated Discharge Date/Time: 01/17/25 08:40 Patient Disposition: Xfer Other Discharge Diagnosis: Lewy body with psychotic disturbances. 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 Patient passed. Discharge Medications: Discontinued atorvastatin 80 mg Tablet 80 mg PO DAILY sennosides [Senna Lax] 8.6 mg Tablet 8.6 mg PO Q12H PRN (Reason: Constipation) acetaminophen 325 mg Tablet 650 mg PO Q4H MDD 3gm PRN (Reason: Pain) acetaminophen 325 mg Tablet 650 mg PO Q6H MDD 3gm PRN (Reason: Fever) hydrocortisone [Cortizone-10] 1 % Ointment 1 appl TOPICAL BID Rx Instructions: only for 10 days, last day should be 11/22 midodrine 5 mg Tablet 10 mg PO TID Rx Instructions: do not give last dose of day after 6PM or within 4 hrs of bedtime melatonin 3 mg Tablet 6 mg PO BEDTIME magnesium hydroxide [Milk of Magnesia] 400 mg/5 mL Suspension 30 ml PO DAILY PRN (Reason: Constipation) tamsulosin [Flomax] 0.4 mg Capsule 0.4 mg PO DAILY bisacodyl 10 mg Suppository 10 mg DC DAILY PRN (Reason: Constipation) pantoprazole [Protonix] 40 mg Tablet,Delayed Release (Dr/Ec) 40 mg PO DAILY@0630 Fleet Enema 19-7 gram/118 mL Enema 118 ml DC DAILY PRN (Reason: Constipation) Rx Instructions: If no BM in 8 hours after taking Bisacodyl suppository mirtazapine 15 mg Tablet 7.5 mg PO BEDTIME menthol [Icy Hot (menthol)] 5 % Adhesive Patch,Medicated 1 patch TOPICAL DAILY finasteride 5 mg Tablet 5 mg PO DAILY Qty: 0 0RF Discharge Orders: Discharge Order (Routine); Ordered 01/17/25 Ordered By: Damaris Ureña Activity on Discharge: home Stand Alone Forms: Patient Portal Discharge page Print Language: Indonesian Care Plan Goals: Support family as needed during this difficult time. Health Concerns: N/A. Patient passed. Support family as needed during this difficult time. Plan of Treatment: N/A. Assessment: N/A. Patient passed. Per hospitalist note: At around 04:10 RN mentioned that patient appeared to have passed. I went in to check on the patient. Patient was not responding 3. No reflexes. Pupils are fixed and dilated. Patient pronounced at 04:15 a.m. on 01/17/2025. Patient's family notified Discharge Date/Time: 01/17/25 04:15
== END 2025-01-17 04:15 | disposition expired | DRG 56 ==
LOC: HO.ED 20:22 → HO.PGERI 12-01 13:10
PROVIDERS: Emergency Medicine; Nurse Practitioner Family; Physician Assistant Medical; Psychiatry & Neurology Psychiatry; Admitting Provider Social Worker; Emergency Provider Emergency Medicine Emergency Medical Services; Visit Provider Social Worker
DX: G31.83 Neurocognitive disorder with Lewy bodies (principal); I62.03 Nontraumatic chronic subdural hemorrhage; S32.029A Unspecified fracture of second lumbar vertebra, initial encounter for closed fracture; F02.82 Dementia in other diseases classified elsewhere, unspecified severity, with psychotic disturbance; F01.52 Vascular dementia, unspecified severity, with psychotic disturbance; I95.9 Hypotension, unspecified; K21.9 Gastro-esophageal reflux disease without esophagitis; Z51.5 Encounter for palliative care; N40.1 Benign prostatic hyperplasia with lower urinary tract symptoms; R31.0 Gross hematuria; W05.0XXA Fall from non-moving wheelchair, initial encounter; G90.9 Disorder of the autonomic nervous system, unspecified; R33.9 Retention of urine, unspecified; W19.XXXA Unspecified fall, initial encounter; Z78.1 Physical restraint status; Z91.148 Patient's other noncompliance with medication regimen for other reason; Z79.899 Other long term (current) drug therapy
CPT/HCPCS: 36415; 70450; 72125; 73000; 73030; 73060; 73080; 74176; 80048; 80053; 80061; 81001; 81003; 82306; 82330; 82533; 82607; 82746; 83036; 83735; 83970; 84443; 84484; 85025; 87086; 87088; 87186; 93005; 97116; 97162; 99285; J0290; J1630; J2359; J2679; J3360; S9485

== ENCOUNTER → 2024-11-30 03:03 | Outpatient (BNV) | payer MEDICARE, OTHER, SELFPAY | PROVIDERS: Emergency Provider Emergency Medicine Emergency Medical Services; Visit Provider Internal Medicine Cardiovascular Disease | DX: Z04.3 Encounter for examination and observation following other accident (principal) | CPT/HCPCS: 93010 ==

== ENCOUNTER → 2024-11-30 04:06 | Outpatient (BNV) | payer MEDICARE, OTHER, SELFPAY | PROVIDERS: Emergency Provider Emergency Medicine Emergency Medical Services; Visit Provider Radiology Vascular & Interventional Radiology | DX: Z04.3 Encounter for examination and observation following other accident (principal) | CPT/HCPCS: 73000 ==

== ENCOUNTER → 2024-11-30 06:00 | Outpatient (BNV) | payer MEDICARE, OTHER, SELFPAY | PROVIDERS: Emergency Provider Emergency Medicine Emergency Medical Services; Visit Provider Nurse Practitioner Psychiatric/Mental Health | DX: G31.83 Neurocognitive disorder with Lewy bodies (principal); F02.82 Dementia in other diseases classified elsewhere, unspecified severity, with psychotic disturbance | CPT/HCPCS: 90792; 99232 ==

== ENCOUNTER 2024-12-01 12:49 | Outpatient (BNV) | payer MEDICARE, OTHER, SELFPAY | END 2024-12-07 09:11 | PROVIDERS: Admitting Provider Social Worker; Emergency Provider Emergency Medicine Emergency Medical Services; Visit Provider Radiology Diagnostic Radiology | DX: M25.521 Pain in right elbow (principal); Z04.3 Encounter for examination and observation following other accident; M79.622 Pain in left upper arm; W19.XXXA Unspecified fall, initial encounter | CPT/HCPCS: 73060 ==

== ENCOUNTER 2024-12-01 12:49 | Outpatient (BNV) | payer MEDICARE, OTHER, SELFPAY | END 2024-12-06 10:46 | PROVIDERS: Admitting Provider Social Worker; Emergency Provider Emergency Medicine Emergency Medical Services; Visit Provider Radiology Diagnostic Radiology | DX: S06.5X0A Traumatic subdural hemorrhage without loss of consciousness, initial encounter (principal) | CPT/HCPCS: 70450 ==

== ENCOUNTER 2024-12-01 12:49 | Outpatient (BNV) | payer MEDICARE, OTHER, SELFPAY | END 2025-01-06 20:28 | PROVIDERS: Admitting Provider Social Worker; Emergency Provider Emergency Medicine Emergency Medical Services; Visit Provider Student in an Organized Health Care Education/Training Program | DX: N40.1 Benign prostatic hyperplasia with lower urinary tract symptoms (principal); M50.30 Other cervical disc degeneration, unspecified cervical region; I67.82 Cerebral ischemia | CPT/HCPCS: 70450; 72125; 74176 ==

== ENCOUNTER 2024-12-01 12:49 | Outpatient (BNV) | payer MEDICARE, OTHER, SELFPAY | END 2024-12-01 20:50 | PROVIDERS: Admitting Provider Social Worker; Emergency Provider Emergency Medicine Emergency Medical Services; Visit Provider Radiology Diagnostic Radiology | DX: M19.012 Primary osteoarthritis, left shoulder (principal) | CPT/HCPCS: 73030 ==

== ENCOUNTER 2024-12-01 12:49 | Outpatient (BNV) | payer MEDICARE, OTHER, SELFPAY | END 2024-12-30 00:03 | PROVIDERS: Admitting Provider Social Worker; Emergency Provider Emergency Medicine Emergency Medical Services; Visit Provider Radiology Diagnostic Radiology | DX: S06.5XAA Traumatic subdural hemorrhage with loss of consciousness status unknown, initial encounter (principal); W05.0XXA Fall from non-moving wheelchair, initial encounter | CPT/HCPCS: 70450; 72125 ==

== ENCOUNTER → 2024-12-01 12:49 | Outpatient (BNV) | payer MEDICARE, OTHER, SELFPAY | PROVIDERS: Admitting Provider Social Worker; Emergency Provider Emergency Medicine Emergency Medical Services; Visit Provider Nurse Practitioner Family | DX: N40.0 Benign prostatic hyperplasia without lower urinary tract symptoms (principal) | CPT/HCPCS: 99222; 99499 ==

== ENCOUNTER → 2024-12-01 12:49 | Outpatient (BNV) | payer MEDICARE, OTHER, SELFPAY | PROVIDERS: Admitting Provider Social Worker; Emergency Provider Emergency Medicine Emergency Medical Services; Visit Provider Nurse Practitioner Family | DX: I95.9 Hypotension, unspecified (principal) | CPT/HCPCS: 99222 ==